=== PATIENT | male | born 1955 | race Caucasian/White ===

== ENCOUNTER 2016-12-01 17:17 | Inpatient (IN) | payer OTHER ==
[~2016-12-01] VITALS: Ht 172.7 cm; Wt 109.5 kg
[~2016-12-01 17:17] MED LIST: ACET300T2 PO; ALBUAER19 INH; ASPI-435 PO; ATOR10TA88 PO; CARV25TA2 PO; CHOL100027 PO; CLOP1TAB15 PO; COEN50CA9 PO; CYAN500T PO; FENO145T26 PO; GLIM1TAB2 PO; IMDSR30 PO; LSN5 PO; OMEGCAP2 PO; TRIA0.1C20 TOP
[2016-12-01] MEDS ORDERED: LSX40 PO (17:43)
[2016-12-01] MEDS ORDERED: FENO54TA PO (17:43)
[2016-12-01] MEDS ORDERED: CRG125 PO (17:43)
[2016-12-01] MEDS ORDERED: COEN1CAP28 PO (17:43)
[2016-12-01] MEDS ORDERED: LISI-729 PO (17:43)
[2016-12-01 17:45] LABS: BASO % 0.1 %; BASO ABS # 0.01 K/uL (0-0.2); COMPLETE YES; EOS % 1.9 %; HEMATOCRIT 46.5 % (42-52); IG% 0.8 %; LYMPH % 16.1 %; LYMPH ABS # 1.36 K/uL (1.2-3.4); MEAN CELL VOLUME 88.2 fL (80-100); MEAN CORPUSCULAR HEMOGLOBIN 31.3 pg (25-34); MEAN CORPUSCULAR HGB CONC 35.5 g/dl (32-36); MONO % 6.8 %; NEUT % 74.3 %; PLATELET COUNT 185 K/uL (130-400); RED BLOOD COUNT 5.27 M/uL (4.7-6.1); WHITE BLOOD COUNT 8.47 K/uL (4.8-10.8)
[2016-12-01] MEDS ORDERED: ACET-749 PO (17:53)
--- NOTE | 2016-12-01 17:57 | EMERGENCY ROOM VISIT NOTE ---
History Report prepared by Kim: Aliya Hernández Under the Supervision of: Dr. Francois Armstrong D.O. 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 The patient states he was seen by his PCP who refereed him to come to have further tests performed. The patient states that he has also been experiencing constipation and has noticed that his stool is harder than usual. He states he also has middle back pain. The patient states that eating worsens his symptoms. The patient denies any abdominal pain,chest pain, nausea, vomiting, urinary symptoms , or fevers. The patient states that he has baseline SOB due to asthma and states he uses a nebulizer at home. The patient states that his last heart catheterization in 2009 when his defibrillator was placed. 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 Review of Systems See HPI for pertinent positives & negatives. A total of 10 systems reviewed and were otherwise negative. Past Medical & Surgical Medical Problems: (1) CHF (congestive heart failure) (2) COPD (chronic obstructive pulmonary disease) (3) Diabetes (4) [place]' lung (5) Pneumonia (6) Presence of combination internal cardiac defibrillator (ICD) and pacemaker Family History Patient reports no known family medical history. Social History Smoking Status: Never Smoker Drug Use: none Marital Status: Housing Status: lives with significant other Occupation Status: employed Current/Historical Medications Scheduled Aspirin (Aspirin 81), 81 MG PO DAILY Atorvastatin (Lipitor), 10 MG PO DAILY Carvedilol (Carvedilol), 12.5 MG PO BID Cholecalciferol (Vitamin D 1000 Unit), 1,000 INTER.UNIT PO DAILY Coenzyme Q10 (Ubidecarenone) (Co Q10), 1 CAP PO DAILY Cyanocobalamin (Vitamin B-12), 500 MCG PO DAILY Fenofibrate (Tricor), 54 MG PO DAILY Furosemide (Furosemide), 20 MG PO BID Glimepiride (Glimepiride), 1 MG PO DAILY Lisinopril (Zestril), 5 MG PO DAILY [place]-3 Fatty Acids (Fish Oil), 1 CAP PO DAILY Scheduled PRN Acetaminophen/Codeine (Tylenol W/Codeine #3), 1 TAB PO Q6 PRN for Pain Albuterol Inhaler (Ventolin Inhaler), 2 PUFFS INH QID PRN for Wheezing Triamcinolone Acet 0.1% (Aristocort 0.1%), 1 APPLN TOP BID PRN for UNK Allergies Coded Allergies: Budesonide (Verified Allergy, Unknown, TACHYCARDIA, SOB, 03/01/15) Carbamazepine (Verified Allergy, Unknown, TACHYCARDIA, PANIC ATTACK, ) Cyclobenzaprine (Verified Allergy, Unknown, UNK, 03/01/15) Doxycycline (Verified Allergy, Unknown, ABD PAIN, 03/01/15) Fluticasone (Verified Allergy, Unknown, UNK, 03/01/15) Formoterol (Verified Allergy, Unknown, TACHYCARDIA, SOB, 03/01/15) Salmeterol (Verified Allergy, Unknown, ANAPHYLAXIS, 03/01/15) Sodium Propionate (Verified Allergy, Unknown, SHORTNESS OF BREATH, 03/01/15 ) Digoxin (Verified Adverse Reaction, Unknown, BACK AND STOMACH PAIN, ) Metformin (Verified Adverse Reaction, Unknown, MUSCLE ACHES IN BVACK AND KIDNEYS, 03/01/15) Physical Exam Vital Signs Date Time Temp Pulse Resp B/P Pulse Ox O2 Delivery O2 Flow Rate FiO2 12/01/16 23:02 93 12/01/16 23:00 93 18 134/84 12/01/16 20:59 98 18 129/83 95 Room Air 12/01/16 18:28 94 19 121/87 94 Room Air 12/01/16 17:59 92 12/01/16 17:50 92 17 137/89 94 Room Air 12/01/16 17:19 36.5 91 18 142/88 95 Room Air Physical Exam GENERAL: Patient is awake, alert, non anxious appearing and does not appear to be in any pain. EYES: The conjunctivae are clear. The pupils are round and reactive. EARS, NOSE, MOUTH AND THROAT: The nose is without any evidence of any deformity. Mucous membranes are moist tongue is midline NECK: The neck is nontender and supple. RESPIRATORY: Normal respiratory effort is noted there is no evidence of wheezing rhonchi or rales CARDIOVASCULAR: Regular rate and rhythm noted there no murmurs rubs or gallops normal S1 normal S2 GASTROINTESTINAL: The abdomen moderately distended but soft, no tenderness, guarding or rigidity. MUSCULOSKELETAL/EXTREMITIES: There is no evidence of gross deformity full range of motion is noted in the hips and shoulders SKIN: There is no obvious evidence of any rash. There are no petechiae, pallor or cyanosis noted. Trace pedal edema bilaterally noted. NEUROLOGIC: Patient is awake alert and oriented x3. Medical Decision & Procedures ER Provider Diagnostic Interpretation: X-ray results as stated below per interpretation by me and the radiologist. PA CHEST WITH ABDOMINAL SERIES CLINICAL HISTORY: Abdominal distention. FINDINGS: A PA chest radiograph is compared to study dated 03/03/2015. A 2-lead cardiac AICD partially obscures the left mid chest. The heart is enlarged and there is atherosclerotic calcification of the thoracic aorta. The pulmonary vasculature is noncongested. Chronic interstitial thickening is unchanged. There is no airspace consolidation or large pleural effusion. No pneumothorax is seen. The skeletal structures are osteopenic. There are healed left-sided rib fractures. Supine and erect abdominal radiographs are obtained. Correlation is made with renal ultrasound dated 03/03/2015. There is a nonobstructed abdominal bowel gas pattern. No evidence of intraperitoneal free air is seen. There are no abnormal abdominal calcifications. Small phleboliths are present in the pelvis. The hepatic silhouette appears enlarged. Mild lumbosacral spondylosis is observed. The bony pelvis appears intact. Advanced atherosclerotic calcification is noted in the femoral arteries. IMPRESSION: 1. Cardiomegaly and AICD. There is no radiographic evidence of congestive failure. 2. There is no airspace consolidation or pleural effusion. 3. Nonobstructed abdominal bowel gas pattern. Electronically signed by: Truong Palomino M.D. 12/01/2016 7:22 PM Dictated Date/Time: 12/01/2016 7:[address] results as stated below per my review and radiologist interpretation. CT SCAN OF THE ABDOMEN AND PELVIS WITHOUT IV CONTRAST CLINICAL HISTORY: Left upper quadrant abdominal pain. COMPARISON STUDY: Abdominal radiograph dated 12/01/2016. Renal ultrasound dated 03/03/2015. TECHNIQUE: CT scan of the abdomen and pelvis is performed from the lung bases to the proximal femora. Images are reviewed in the axial, sagittal, and coronal planes. IV contrast was not administered for this examination as per the referring clinician. Note that the examination was performed in significantly suboptimal fashion without oral and IV contrast. Automated dose control exposure was utilized. CT DOSE: 1002.43 mGy.cm FINDINGS: Lung bases: The heart is heart is mildly enlarged. Pacemaker leads are noted. There is no pericardial effusion. A calcified granuloma is identified at the right lung base. The lung bases are otherwise clear. There is a tiny hiatal hernia. Liver: The unenhanced liver is enlarged, measuring 19 cm in length. The liver demonstrates diffusely diminished attenuation consistent with severe hepatic steatosis. Fatty sparing is seen adjacent to the gallbladder fossa. There is no intrahepatic biliary ductal dilatation. Gallbladder: Unremarkable. Spleen: Normal in size and attenuation. There are small calcified splenic granulomas. Pancreas: Unremarkable. Adrenal glands: Unremarkable. Kidneys: The unenhanced kidneys demonstrate mild cortical atrophy and are without hydronephrosis. There are no renal calculi identified. There is a 3.6 cm lesion in the upper pole of the right kidney seen on axial image #157. This does not meet criteria for a simple cyst. A 1.7 cm partially exophytic cyst arises from the interpolar left kidney. Abdominal vasculature: The abdominal aorta is normal in course and caliber noting advanced atherosclerotic calcification. Bowel: The small bowel and colon are normal in course and caliber. A small duodenal diverticulum is noted. There is mild to moderate sigmoid diverticulosis without CT evidence of acute diverticulitis. There is mild colonic fecal retention. The appendix is well-visualized and normal. Peritoneum: There is no intraperitoneal free air or abdominal ascites. There is a small fat-containing local hernia. Lymphadenopathy: None. Pelvic viscera: The prostate gland is mildly heterogeneous and contains coarse calcifications. The bladder and seminal vesicles are normal as visualized. Skeletal structures: There is mild lumbosacral spondylosis. No lytic or blastic lesions are seen. IMPRESSION: 1. Significantly suboptimal examination without oral and IV contrast. 2. There are no acute infectious or inflammatory findings in the abdomen or pelvis. 3. There is a 3.6 cm lesion identified in the upper pole of the right kidney. This does not meet CT criteria for a simple cyst and although this could represent a complex cyst the appearance is highly concerning for a renal mass. Follow-up with a nonemergent renal mass protocol abdominal CT is recommended for further characterization. 4. Hepatomegaly and severe hepatic steatosis. 5. Cardiomegaly. 6. There is mild to moderate sigmoid diverticulosis without CT evidence of acute diverticulitis. Electronically signed by: Truong Palomino M.D. 12/01/2016 9:00 PM Dictated Date/Time: 12/01/2016 8:52 PM Laboratory Results 12/01/16 17:30 Red Blood Count 5.27, Mean Corpuscular Volume 88.2, Mean Corpuscular Hemoglobin 31.3, Mean Corpuscular Hemoglobin Concent 35.5, Mean Platelet Volume 10.0, Neutrophils (%) (Auto) 74.3, Lymphocytes (%) (Auto) 16.1, Monocytes (%) (Auto) 6.8, Eosinophils (%) (Auto) 1.9, Basophils (%) (Auto) 0.1, Neutrophils # (Auto) 6.29, Lymphocytes # (Auto) 1.36, Monocytes # (Auto) 0.58, Eosinophils # (Auto) 0.16, Basophils # (Auto) 0.01 12/01/16 17:30 Test 12/01/16 17:30 White Blood Count 8.47 K/uL (4.8-10.8) Red Blood Count 5.27 M/uL (4.7-6.1) Hemoglobin 16.5 g/dL (14.0-18.0) Hematocrit 46.5 % (42-52) Mean Corpuscular Volume 88.2 fL (80-100) Mean Corpuscular Hemoglobin 31.3 pg (25-34) Mean Corpuscular Hemoglobin Concent 35.5 g/dl (32-36) Platelet Count 185 K/uL (130-400) Mean Platelet Volume 10.0 fL (7.4-10.4) Neutrophils (%) (Auto) 74.3 % Lymphocytes (%) (Auto) 16.1 % Monocytes (%) (Auto) 6.8 % Eosinophils (%) (Auto) 1.9 % Basophils (%) (Auto) 0.1 % Neutrophils # (Auto) 6.29 K/uL (1.4-6.5) Lymphocytes # (Auto) 1.36 K/uL (1.2-3.4) Monocytes # (Auto) 0.58 K/uL (0.11-0.59) Eosinophils # (Auto) 0.16 K/uL (0-0.5) Basophils # (Auto) 0.01 K/uL (0-0.2) RDW Standard Deviation 43.0 fL (36.4-46.3) RDW Coefficient of Variation 13.2 % (11.5-14.5) Immature Granulocyte % (Auto) 0.8 % Immature Granulocyte # (Auto) 0.07 K/uL (0.00-0.02) Prothrombin Time 10.9 SECONDS (9.0-12.0) Prothromb Time International Ratio 1.0 (0.9-1.1) Activated Partial Thromboplast Time 23.6 SECONDS (21.0-31.0) Partial Thromboplastin Ratio 0.9 Anion Gap 11.0 mmol/L (3-11) Est Creatinine Clear Calc Drug Dose 56.7 ml/min Estimated GFR () 52.4 Estimated GFR (Non- 45.2 BUN/Creatinine Ratio 18.8 (10-20) Calcium Level 10.0 mg/dl (8.5-10.1) Magnesium Level 2.3 mg/dl (1.8-2.4) Total Bilirubin 0.7 mg/dl (0.2-1) Direct Bilirubin 0.1 mg/dl (0-0.2) Aspartate Amino Transf (AST/SGOT) 28 U/L (15-37) Alanine Aminotransferase (ALT/SGPT) 50 U/L (12-78) Alkaline Phosphatase 50 U/L (45-117) Total Creatine Kinase 194 U/L (39-308) Creatine Kinase MB 2.2 ng/ml (0.5-3.6) Creatine Kinase MB Ratio 1.1 (0-3.0) Troponin I 0.059 ng/ml (0-0.045) Total Protein 7.7 gm/dl (6.4-8.2) Albumin 4.1 gm/dl (3.4-5.0) Lipase 275 U/L (73-393) Thyroid Stimulating Hormone (TSH) 4.900 uIu/ml (0.300-4.500) Free Thyroxine 1.11 ng/dl (0.80-1.60) Laboratory results per my review. Medications Administered Medications (Trade) Dose Ordered Sig/Pearl Route Start Time Stop Time Status Last Admin Dose Admin Sodium Chloride (Nss 500ml) 500 ml @ 999 mls/hr Q31M STAT IV 12/01/16 20:25 12/01/16 20:55 DC 12/01/16 20:25 999 MLS/HR ECG Indication: other (abdominal bloating. ) Rate (beats per minute): 95 Rhythm: sinus rhythm Findings: 1st degree AV block, PVC (frequent), ST depression (Lateral and Inferior), other (Poor R wave progression) Comparison ECG Date: March 02, 2015 Change: no significant change ED Course 1727: The patient was evaluated in room C4. A complete history and physical examination were performed. 2017: I reevaluated the patient and he was resting comfortably. 2024: Ordered NSS 500 ml @ 999 mls/hr IV 2216:I discussed the case with Dr. [facility]. He agreed to evaluate the patient for further management and care. Medical Decision Differential diagnosis: Etiologies such as appendicitis, diverticulitis, PUD, biliary pathology, UTI, pancreatitis, obstruction, mesenteric ischemia, aortic pathology, infections, inflammatory bowel disease, renal colic, as well as others were entertained. Nursing notes reviewed. The patient is a 61-year-old male who presented to the emergency department for an evaluation of upper abdominal pain and left-sided lower chest pain. The patient also has been experiencing pain in his upper extremities. He was seen by his primary care physician and sent to the emergency department for possible anginal equivalent. The patient doesn't a history of dilated cardiomyopathy. His troponin was mildly elevated which he has had on previous visits. I discussed the patient's laboratory and radiographic studies with him. He was treated with IV fluids in the emergency department. Because of the patient's history and abnormal troponin I discussed his case with the on-call [facility] hospitalist group. They've agreed to evaluate the patient in the emergency department for further management and disposition. Consults Time Called: [id number] Consulting Physician: Dr. Lindsay GOLDMAN Hospitalist Returned Call: [id number] I discussed the case with Dr. Lindsay [facility]. He agreed to evaluate the patient for further management and care. Impression Primary Impression: Left sided chest pain Additional Impressions: Right kidney mass Hypotension Scribe Attestation The scribe's documentation has been prepared under my direction and personally reviewed by me in its entirety. I confirm that the note above accurately reflects all work, treatment, procedures, and medical decision making performed by me. Departure Information Dispostion Being Evaluated By Hospitalist Referrals Karen Pablo M.D. (PCP) Problem Qualifiers Additional Impressions:
[2016-12-01 17:59] LABS: PARTIAL THROMBOPLASTIN RATIO 0.9; PROTHROMBIN TIME (PATIENT) 10.9 SECONDS (9.0-12.0)
[2016-12-01 18:07] LABS: BUN/CREATININE RATIO 18.8 (10-20); CREATININE 1.6 mg/dl (0.60-1.40); MAGNESIUM 2.3 mg/dl (1.8-2.4); POTASSIUM 4.3 mmol/L (3.5-5.1)
[2016-12-01 18:18] LABS: CKMB/CK RATIO 1.1 (0-3.0); THYROID STIMULATING HORMONE 4.9 uIu/ml (0.300-4.500)
--- NOTE | 2016-12-01 19:24 | DIAGNOSTIC IMAGING REPORT ---
PA CHEST WITH ABDOMINAL SERIES CLINICAL HISTORY: Abdominal distention. FINDINGS: A PA chest radiograph is compared to study dated 03/03/2015. A 2-lead cardiac AICD partially obscures the left mid chest. The heart is enlarged and there is atherosclerotic calcification of the thoracic aorta. The pulmonary vasculature is noncongested. Chronic interstitial thickening is unchanged. There is no airspace consolidation or large pleural effusion. No pneumothorax is seen. The skeletal structures are osteopenic. There are healed left-sided rib fractures. Supine and erect abdominal radiographs are obtained. Correlation is made with renal ultrasound dated 03/03/2015. There is a nonobstructed abdominal bowel gas pattern. No evidence of intraperitoneal free air is seen. There are no abnormal abdominal calcifications. Small phleboliths are present in the pelvis. The hepatic silhouette appears enlarged. Mild lumbosacral spondylosis is observed. The bony pelvis appears intact. Advanced atherosclerotic calcification is noted in the femoral arteries. IMPRESSION: 1. Cardiomegaly and AICD. There is no radiographic evidence of congestive failure. 2. There is no airspace consolidation or pleural effusion. 3. Nonobstructed abdominal bowel gas pattern. Electronically signed by: Truong Palomino M.D. 12/01/2016 7:22 PM Dictated Date/Time: 12/01/2016 7:20 PM
[2016-12-01] MEDS ORDERED: SODIUM CHLORIDE 0.9% 500ML 500 ML IV STA (20:25)
--- NOTE | 2016-12-01 21:02 | DIAGNOSTIC IMAGING REPORT ---
CT SCAN OF THE ABDOMEN AND PELVIS WITHOUT IV CONTRAST CLINICAL HISTORY: Left upper quadrant abdominal pain. COMPARISON STUDY: Abdominal radiograph dated 12/01/2016. Renal ultrasound dated 03/03/2015. TECHNIQUE: CT scan of the abdomen and pelvis is performed from the lung bases to the proximal femora. Images are reviewed in the axial, sagittal, and coronal planes. IV contrast was not administered for this examination as per the referring clinician. Note that the examination was performed in significantly suboptimal fashion without oral and IV contrast. Automated dose control exposure was utilized. CT DOSE: 1002.43 mGy.cm FINDINGS: Lung bases: The heart is heart is mildly enlarged. Pacemaker leads are noted. There is no pericardial effusion. A calcified granuloma is identified at the right lung base. The lung bases are otherwise clear. There is a tiny hiatal hernia. Liver: The unenhanced liver is enlarged, measuring 19 cm in length. The liver demonstrates diffusely diminished attenuation consistent with severe hepatic steatosis. Fatty sparing is seen adjacent to the gallbladder fossa. There is no intrahepatic biliary ductal dilatation. Gallbladder: Unremarkable. Spleen: Normal in size and attenuation. There are small calcified splenic granulomas. Pancreas: Unremarkable. Adrenal glands: Unremarkable. Kidneys: The unenhanced kidneys demonstrate mild cortical atrophy and are without hydronephrosis. There are no renal calculi identified. There is a 3.6 cm lesion in the upper pole of the right kidney seen on axial image #157. This does not meet criteria for a simple cyst. A 1.7 cm partially exophytic cyst arises from the interpolar left kidney. Abdominal vasculature: The abdominal aorta is normal in course and caliber noting advanced atherosclerotic calcification. Bowel: The small bowel and colon are normal in course and caliber. A small duodenal diverticulum is noted. There is mild to moderate sigmoid diverticulosis without CT evidence of acute diverticulitis. There is mild colonic fecal retention. The appendix is well-visualized and normal. Peritoneum: There is no intraperitoneal free air or abdominal ascites. There is a small fat-containing local hernia. Lymphadenopathy: None. Pelvic viscera: The prostate gland is mildly heterogeneous and contains coarse calcifications. The bladder and seminal vesicles are normal as visualized. Skeletal structures: There is mild lumbosacral spondylosis. No lytic or blastic lesions are seen. IMPRESSION: 1. Significantly suboptimal examination without oral and IV contrast. 2. There are no acute infectious or inflammatory findings in the abdomen or pelvis. 3. There is a 3.6 cm lesion identified in the upper pole of the right kidney. This does not meet CT criteria for a simple cyst and although this could represent a complex cyst the appearance is highly concerning for a renal mass. Follow-up with a nonemergent renal mass protocol abdominal CT is recommended for further characterization. 4. Hepatomegaly and severe hepatic steatosis. 5. Cardiomegaly. 6. There is mild to moderate sigmoid diverticulosis without CT evidence of acute diverticulitis. Electronically signed by: Truong Palomino M.D. 12/01/2016 9:00 PM Dictated Date/Time: 12/01/2016 8:52 PM
[2016-12-02] VITALS (7 sets, daily range): BP systolic 106–128; BP diastolic 69–83; PULSE 87–100; TEMP 36.6–37; O2SAT 93–94; Ht 172.7 cm; Wt 109.5 kg
[2016-12-02] MEDS ORDERED: TRIAMCINOLONE ACET 0.1% CR 15 GM TUBE EXT PRN (01:30)
[2016-12-02] MEDS ORDERED: ACETAMINOPHEN 325 MG TAB PO PRN ×2 (01:30→01:45)
[2016-12-02] MEDS ORDERED: ACETAMINOPHEN/CODEINE 300/30MG TAB PO PRN (01:30)
[2016-12-02] MEDS ORDERED: ALBUTEROL HFA 8 GM INHALER INH PRN (01:30)
[2016-12-02] MEDS ORDERED: NITROGLYCERIN 0.4 MG SL PER TAB CHARGE SL PRN (01:30)
[2016-12-02] MEDS ORDERED: ZOLPIDEM TARTRATE 5 MG TAB PO PRN (01:30)
[2016-12-02] MEDS ORDERED: MoRPHine SULFATE 4 MG/ML 1 ML CARP\\VIAL IV PRN (01:45)
[2016-12-02] MEDS ORDERED: MoRPHine SULFATE 2 MG/ML CARP IV PRN (01:45)
[2016-12-02] MEDS ORDERED: ONDANSETRON INJ 2 MG/ML 2 ML VIAL IV PRN (01:45)
[2016-12-02] MEDS ORDERED: TRAMADOL HCL 50 MG TAB PO PRN ×2 (01:45)
[2016-12-02 03:33] LABS: CKMB/CK RATIO 1.1 (0-3.0)
--- NOTE | 2016-12-02 06:12 | History and Physical ---
History & Physical Date & Time of Service: Dec 02, 2016 at 06:03 Chief Complaint: Elevated Troponin I Level Primary Care Physician: Karen Pablo M.D. History of Present Illness Source: patient, spouse The patient is a 61-year-old male who presents to emergency room with complaint of worsening abdominal epigastric bloating that began a few days prior to arrival. He is also had more difficulty moving his bowels with the stool being harder than usual. He has not had any abdominal pain, nausea, vomiting, blood in urine or stool. He has baseline shortness of breath due to asthma, which has not changed during this interval. He had a heart catheterization in 2009 when his AICD was placed. Past Medical/Surgical History Medical Problems: (1) CHF (congestive heart failure) Status: Chronic (2) COPD (chronic obstructive pulmonary disease) Status: Chronic (3) Diabetes Status: Chronic (4) [place]' lung Status: Resolved (5) Pneumonia Status: Resolved (6) Presence of combination internal cardiac defibrillator (ICD) and pacemaker Status: Chronic Family History Patient reports no known family medical history. Social History Smoking Status: Never Smoker Smokeless Tobacco Use: No Alcohol Use: none Drug Use: none Marital Status: Housing status: lives with family Occupational Status: employed Multi-Drug Resistant Organisms History of MDRO: No Allergies Coded Allergies: Budesonide (Verified Allergy, Unknown, TACHYCARDIA, SOB, 03/01/15) Carbamazepine (Verified Allergy, Unknown, TACHYCARDIA, PANIC ATTACK, ) Cyclobenzaprine (Verified Allergy, Unknown, UNK, 03/01/15) Doxycycline (Verified Allergy, Unknown, ABD PAIN, 03/01/15) Fluticasone (Verified Allergy, Unknown, UNK, 03/01/15) Formoterol (Verified Allergy, Unknown, TACHYCARDIA, SOB, 03/01/15) Salmeterol (Verified Allergy, Unknown, ANAPHYLAXIS, 03/01/15) Sodium Propionate (Verified Allergy, Unknown, SHORTNESS OF BREATH, 03/01/15 ) Digoxin (Verified Adverse Reaction, Unknown, BACK AND STOMACH PAIN, ) Metformin (Verified Adverse Reaction, Unknown, MUSCLE ACHES IN BVACK AND KIDNEYS, 03/01/15) Home Medications Scheduled Aspirin (Aspirin 81), 81 MG PO DAILY Atorvastatin (Lipitor), 10 MG PO DAILY Carvedilol (Carvedilol), 12.5 MG PO BID Cholecalciferol (Vitamin D 1000 Unit), 1,000 INTER.UNIT PO DAILY Coenzyme Q10 (Ubidecarenone) (Co Q10), 1 CAP PO DAILY Cyanocobalamin (Vitamin B-12), 500 MCG PO DAILY Fenofibrate (Tricor), 54 MG PO DAILY Furosemide (Furosemide), 20 MG PO BID Glimepiride (Glimepiride), 1 MG PO DAILY Lisinopril (Zestril), 5 MG PO DAILY Leo-3 Fatty Acids (Fish Oil), 1 CAP PO DAILY Scheduled PRN Acetaminophen/Codeine (Tylenol W/Codeine #3), 1 TAB PO Q6 PRN for Pain Albuterol Inhaler (Ventolin Inhaler), 2 PUFFS INH QID PRN for Wheezing Triamcinolone Acet 0.1% (Aristocort 0.1%), 1 APPLN TOP BID PRN for UNK Review of Systems The patient denies chest pain, palpitations, shortness of breath, cough, lower extremity swelling, vision change, hearing change, sore throat, fevers, chills, sweats, weight change, fatigue, nausea, abdominal pain, blood in urine or stool , dysuria, urinary frequency or urgency, lightheadedness, dizziness, headache, memory loss, rash, abnormal bruising or bleeding, imbalance, focal or generalized weakness, numbness or tingling in arms or legs, arthralgias or myalgias, night sweats, or allergy symptoms. The review of systems is otherwise negative other than for that already noted above, and at least 10 systems have been reviewed. Physical Exam Vital Signs Date Time Temp Pulse Resp B/P Pulse Ox O2 Delivery O2 Flow Rate FiO2 12/02/16 04:15 36.8 100 18 128/83 94 Room Air 12/02/16 04:00 Room Air 12/02/16 01:53 37.0 95 17 124/75 Room Air 12/02/16 01:29 101 20 154/92 95 Room Air 12/01/16 23:59 94 20 114/84 12/01/16 23:02 93 12/01/16 23:00 93 18 134/84 12/01/16 20:59 98 18 129/83 95 Room Air 12/01/16 18:28 94 19 121/87 94 Room Air 12/01/16 17:59 92 12/01/16 17:50 92 17 137/89 94 Room Air 12/01/16 17:19 36.5 91 18 142/88 95 Room Air The patient is awake, well-developed and adequately nourished, alert and oriented 3, normocephalic and atraumatic, lying in bed and in no acute distress. HEENT--PERRL, EOMI, mucous membranes moist, and oropharynx normal. Neck--supple, no JVD or bruits, thyroid normal, trachea midline, no adenopathy. Heart--normal S1 and S2, no extra beats, no murmurs, rubs or gallops. Lungs--clear bilaterally with good air movement, no respiratory distress, no accessory muscle use. Abdomen--normal bowel sounds and soft, nontender and nondistended, mildly tympanitic, moderately obese, no hernias or masses, no organomegaly. Extremities--no cyanosis, clubbing or edema. There are good distal pulses b/l. Dermatologic--normal skin turgor, normal color, warm and dry, no abnormal lymph nodes, no rash. Neurologic--cranial nerves II through XII grossly intact, motor and sensory examination normal. Rheumatologic--normal range of motion, nontender, muscles and joints. Psychiatric--normal affect. Diagnostics Laboratory Results Results Past 24 Hours Test 12/01/16 17:30 12/02/16 02:25 Range/Units White Blood Count 8.47 4.8-10.8 K/uL Red Blood Count 5.27 4.7-6.1 M/uL Hemoglobin 16.5 14.0-18.0 g/dL Hematocrit 46.5 42-52 % Mean Corpuscular Volume 88.2 80-100 fL Mean Corpuscular Hemoglobin 31.3 25-34 pg Mean Corpuscular Hemoglobin Concent 35.5 32-36 g/dl Platelet Count 185 130-400 K/uL Mean Platelet Volume 10.0 7.4-10.4 fL Neutrophils (%) (Auto) 74.3 % Lymphocytes (%) (Auto) 16.1 % Monocytes (%) (Auto) 6.8 % Eosinophils (%) (Auto) 1.9 % Basophils (%) (Auto) 0.1 % Neutrophils # (Auto) 6.29 1.4-6.5 K/uL Lymphocytes # (Auto) 1.36 1.2-3.4 K/uL Monocytes # (Auto) 0.58 0.11-0.59 K/uL Eosinophils # (Auto) 0.16 0-0.5 K/uL Basophils # (Auto) 0.01 0-0.2 K/uL RDW Standard Deviation 43.0 36.4-46.3 fL RDW Coefficient of Variation 13.2 11.5-14.5 % Immature Granulocyte % (Auto) 0.8 % Immature Granulocyte # (Auto) 0.07 0.00-0.02 K/uL Prothrombin Time 10.9 9.0-12.0 SECONDS Prothromb Time International Ratio 1.0 0.9-1.1 Activated Partial Thromboplast Time 23.6 21.0-31.0 SECONDS Partial Thromboplastin Ratio 0.9 Sodium Level 138 136-145 mmol/L Potassium Level 4.3 3.5-5.1 mmol/L Chloride Level 102 98-107 mmol/L Carbon Dioxide Level 25 21-32 mmol/L Anion Gap 11.0 3-11 mmol/L Blood Urea Nitrogen 30 7-18 mg/dl Creatinine 1.60 0.60-1.40 mg/dl Est Creatinine Clear Calc Drug Dose 56.7 ml/min Estimated GFR () 52.4 Estimated GFR (Non- 45.2 BUN/Creatinine Ratio 18.8 10-20 Random Glucose 119 70-99 mg/dl Calcium Level 10.0 8.5-10.1 mg/dl Magnesium Level 2.3 1.8-2.4 mg/dl Total Bilirubin 0.7 0.2-1 mg/dl Direct Bilirubin 0.1 0-0.2 mg/dl Aspartate Amino Transf (AST/SGOT) 28 15-37 U/L Alanine Aminotransferase (ALT/SGPT) 50 12-78 U/L Alkaline Phosphatase 50 45-117 U/L Total Creatine Kinase 194 160 39-308 U/L Creatine Kinase MB 2.2 1.7 0.5-3.6 ng/ml Creatine Kinase MB Ratio 1.1 1.1 0-3.0 Troponin I 0.059 0.049 0-0.045 ng/ml Total Protein 7.7 6.4-8.2 gm/dl Albumin 4.1 3.4-5.0 gm/dl Lipase 275 73-393 U/L Thyroid Stimulating Hormone (TSH) 4.900 0.300-4.500 uIu/ml Free Thyroxine 1.11 0.80-1.60 ng/dl Diagnostic Radiology Patient Name: TAMIE VAUGHAN Unit Number: [id number] Dictated: 12/01/161919 Transcribed: 12/01/161919 EV Printed Date/Time: [~ rep prt dt]/[~ rep prt tm] [~ rep ct labl] - [~ rep ct ivnm] [facility] [place] [address] Dictated: 12/01/161919 Transcribed: 12/01/161919 EV Printed Date/Time: [~ rep prt dt]/[~ rep prt tm] [~ rep ct labl] - [~ rep ct ivnm] PA CHEST WITH ABDOMINAL SERIES CLINICAL HISTORY: Abdominal distention. FINDINGS: A PA chest radiograph is compared to study dated 03/03/2015. A 2-lead cardiac AICD partially obscures the left mid chest. The heart is enlarged and there is atherosclerotic calcification of the thoracic aorta. The pulmonary vasculature is noncongested. Chronic interstitial thickening is unchanged. There is no airspace consolidation or large pleural effusion. No pneumothorax is seen. The skeletal structures are osteopenic. There are healed left-sided rib fractures. Supine and erect abdominal radiographs are obtained. Correlation is made with renal ultrasound dated 03/03/2015. There is a nonobstructed abdominal bowel gas pattern. No evidence of intraperitoneal free air is seen. There are no abnormal abdominal calcifications. Small phleboliths are present in the pelvis. The hepatic silhouette appears enlarged. Mild lumbosacral spondylosis is observed. The bony pelvis appears intact. Advanced atherosclerotic calcification is noted in the femoral arteries. IMPRESSION: 1. Cardiomegaly and AICD. There is no radiographic evidence of congestive failure. 2. There is no airspace consolidation or pleural effusion. 3. Nonobstructed abdominal bowel gas pattern. Electronically signed by: Truong Palomino M.D. 12/01/2016 7:22 PM Dictated Date/Time: 12/01/2016 7:20 PM The status of this report is Signed. Draft = Not yet reviewed or approved by Radiologist. Signed = Reviewed and approved by Radiologist. <AttendingPhy></AttendingPhy> <FamilyPhy>Karen Pablo M.D.</FamilyPhy> < PrimaryPhy>Karen Pablo M.D.</PrimaryPhy> <UnitNumber>[id number]</UnitNumber> < VisitNumber>[id number]</VisitNumber> <PatientName>TAMIE VAUGHAN</PatientName > <DateOfBirth>1955</DateOfBirth> <Location>[facility]</Location> <ServiceDate> 12/01/16</ServiceDate> <MNE>ESINDI</MNE> <OrderingPhy>Francois Armstrong D.O.</ OrderingPhy> <OrderingPhyMNE>f rep ord dr ross</OrderingPhyMNE> <DictatingPhyMNE> f rep dict dr ross</DictatingPhyMNE> <CCListMNE>f rep ct mne</CCListMNE> < AdmittingPhyMNE>f pt admit dr ross</AdmittingPhyMNE> <AttendingPhyMNE>f pt attend dr ross</AttendingPhyMNE> <ConsultingPhyMNE>f pt consult dr ross</ConsultingPhyMNE> <FamilyPhyMNE>f pt fam dr ross</FamilyPhyMNE> <OtherPhyMNE>f pt other dr ross</OtherPhyMNE> < PrimaryPhyMNE>f pt prim care dr ross</PrimaryPhyMNE> <ReferringPhyMNE>f pt referring dr ross</ReferringPhyMNE> Patient Name: TAMIE VAUGHAN Unit Number: [id number] Dictated: 12/01/162051 Transcribed: 12/01/162051 EV Printed Date/Time: [~ rep prt dt]/[~ rep prt tm] [~ rep ct labl] - [~ rep ct ivnm] [facility] [place] [place] [address] Dictated: 12/01/162051 Transcribed: 12/01/162051 EV Printed Date/Time: [~ rep prt dt]/[~ rep prt tm] [~ rep ct labl] - [~ rep ct ivnm] [~ rep ct add3]] CT SCAN OF THE ABDOMEN AND PELVIS WITHOUT IV CONTRAST CLINICAL HISTORY: Left upper quadrant abdominal pain. COMPARISON STUDY: Abdominal radiograph dated 12/01/2016. Renal ultrasound dated 03/03/2015. TECHNIQUE: CT scan of the abdomen and pelvis is performed from the lung bases to the proximal femora. Images are reviewed in the axial, sagittal, and coronal planes. IV contrast was not administered for this examination as per the referring clinician. Note that the examination was performed in significantly suboptimal fashion without oral and IV contrast. Automated dose control exposure was utilized. CT DOSE: 1002.43 mGy.cm FINDINGS: Lung bases: The heart is heart is mildly enlarged. Pacemaker leads are noted. There is no pericardial effusion. A calcified granuloma is identified at the right lung base. The lung bases are otherwise clear. There is a tiny hiatal hernia. Liver: The unenhanced liver is enlarged, measuring 19 cm in length. The liver demonstrates diffusely diminished attenuation consistent with severe hepatic steatosis. Fatty sparing is seen adjacent to the gallbladder fossa. There is no intrahepatic biliary ductal dilatation. Gallbladder: Unremarkable. Spleen: Normal in size and attenuation. There are small calcified splenic granulomas. Pancreas: Unremarkable. Adrenal glands: Unremarkable. Kidneys: The unenhanced kidneys demonstrate mild cortical atrophy and are without hydronephrosis. There are no renal calculi identified. There is a 3.6 cm lesion in the upper pole of the right kidney seen on axial image #157. This does not meet criteria for a simple cyst. A 1.7 cm partially exophytic cyst arises from the interpolar left kidney. Abdominal vasculature: The abdominal aorta is normal in course and caliber noting advanced atherosclerotic calcification. Bowel: The small bowel and colon are normal in course and caliber. A small duodenal diverticulum is noted. There is mild to moderate sigmoid diverticulosis without CT evidence of acute diverticulitis. There is mild colonic fecal retention. The appendix is well-visualized and normal. Peritoneum: There is no intraperitoneal free air or abdominal ascites. There is a small fat-containing local hernia. Lymphadenopathy: None. Pelvic viscera: The prostate gland is mildly heterogeneous and contains coarse calcifications. The bladder and seminal vesicles are normal as visualized. Skeletal structures: There is mild lumbosacral spondylosis. No lytic or blastic lesions are seen. IMPRESSION: 1. Significantly suboptimal examination without oral and IV contrast. 2. There are no acute infectious or inflammatory findings in the abdomen or pelvis. 3. There is a 3.6 cm lesion identified in the upper pole of the right kidney. This does not meet CT criteria for a simple cyst and although this could represent a complex cyst the appearance is highly concerning for a renal mass. Follow-up with a nonemergent renal mass protocol abdominal CT is recommended for further characterization. 4. Hepatomegaly and severe hepatic steatosis. 5. Cardiomegaly. 6. There is mild to moderate sigmoid diverticulosis without CT evidence of acute diverticulitis. Electronically signed by: Truong Palomino M.D. 12/01/2016 9:00 PM Dictated Date/Time: 12/01/2016 8:52 PM The status of this report is Signed. Draft = Not yet reviewed or approved by Radiologist. Signed = Reviewed and approved by Radiologist. <AttendingPhy></AttendingPhy> <FamilyPhy>Karen Pablo M.D.</FamilyPhy> < PrimaryPhy>Karen Pablo M.D.</PrimaryPhy> <UnitNumber>[id number]</UnitNumber> < VisitNumber>[id number]</VisitNumber> <PatientName>TAMIE VAUGHAN Jayshree</PatientName > <DateOfBirth>1955</DateOfBirth> <Location>[facility]</Location> <ServiceDate> 12/01/16</ServiceDate> <MNE>ESINDI</MNE> <OrderingPhy>Francois Armstrong D.O.</ OrderingPhy> <OrderingPhyMNE>f rep ord dr ross</OrderingPhyMNE> <DictatingPhyMNE> f rep dict dr ross</DictatingPhyMNE> <CCListMNE>f rep ct vandana</CCListMNE> < AdmittingPhyMNE>f pt admit dr ross</AdmittingPhyMNE> <AttendingPhyMNE>f pt attend dr ross</AttendingPhyMNE> <ConsultingPhyMNE>f pt consult dr ross</ConsultingPhyMNE> <FamilyPhyMNE>f pt fam dr ross</FamilyPhyMNE> <OtherPhyMNE>f pt other dr ross</OtherPhyMNE> < PrimaryPhyMNE>f pt prim care dr ross</PrimaryPhyMNE> <ReferringPhyMNE>f pt referring dr ross</ReferringPhyMNE> EKG EKG shows normal sinus rhythm with first-degree heart block, incomplete left bundle branch block, nonspecific ST-T changes in lateral leads, and PVCs Impression Assessment and Plan Elevated troponin, with nonspecific ST-T changes, status post AICD--the patient will be admitted to the telemetry unit, for serial cardiac enzymes, cardiac rhythm monitoring, and a 2-D echocardiogram with Dopplers. We'll consult his telehealth director Dr. Jose. We'll continue aspirin 81 mg by mouth daily, carvedilol 12.5 mg by mouth twice a day, furosemide 20 mg by mouth twice a day, lisinopril 5 mg by mouth daily. Hypercholesterolemia--continue atorvastatin 10 mg by mouth daily and fenofibrate 54 mg by mouth daily. Diabetes mellitus--continue omeprazole 1 mg by mouth daily, and place patient on Accu-Cheks before meals and at bedtime with NovoLog coverage. Vitamin B12 deficiency--continue supplement 500 g by mouth daily. Level of Care Telemetry Advanced Directives Existing Advance Directive: No Existing Living Will: Yes Existing Power of Budget Coordinator: No Resuscitation Status FULL RESUSCITATION VTE Prophylaxis VTE Risk Assessment Done? Y/N: Yes Risk Level: Moderate Given or contraindicated: SCD's
[2016-12-02] MEDS ORDERED: CHOLECALCIFEROL 1000 INTER.UNIT TAB PO SCH (09:00)
[2016-12-02] MEDS ORDERED: CYANOCOBALAMIN 500 MCG TAB (VIT B-12) PO SCH (09:00)
[2016-12-02] MEDS ORDERED: GLIMEPIRIDE 2 MG TAB PO SCH (09:00)
[2016-12-02] MEDS ORDERED: FUROSEMIDE 20 MG TAB PO SCH (09:00)
[2016-12-02] MEDS ORDERED: ASPIRIN 81 MG ECTAB PO SCH (09:00)
[2016-12-02] MEDS ORDERED: ATORVASTATIN 10 MG TAB PO SCH (09:00)
[2016-12-02] MEDS ORDERED: CARVEDILOL 12.5 MG TAB PO SCH (09:00)
[2016-12-02] MEDS ORDERED: FENOFIBRATE 48 MG TAB PO SCH (09:00)
[2016-12-02] MEDS ORDERED: OMEGA-3 (PURIFIED FISH OIL) 1 GM CAP PO SCH (09:00)
[2016-12-02] MEDS ORDERED: LISINOPRIL 5 MG TAB PO SCH (09:00)
--- NOTE | 2016-12-02 09:37 | ECHOCARDIOGRAM REPORT ---
*NOTICE TO RECEIVING [employer] This information is strictly Confidential and protected under [place] law. [place] law prohibits you from making any further disclosure of this information unless further disclosure is expressly permitted by the written consent of the person to whom it pertains or is authorized by law. A general authorization for the release of medical or other information is not sufficient for this purpose. Hospital accepts no responsibility if the information is made available to any other person, INCLUDING THE PATIENT. Interpretation Summary * Name: TAMIE VAUGHAN Study Date: 12/02/2016 06:51 AM BP: 128/83 mmHg * Patient Location: C.2T\S\S239\S\1 HR: 100 * : 1955 (M/d/yyyy) Gender: Male Height: 68 in * Age: 61 yrs Ethnicity: [place] Weight: 241 lb * Ordering Physician: Catrachito Montoya * Referring Physician: Karen Pablo * Performed By: Jose Dominguez RDCS * * Reason For Study: Elevated troponin * BSA: 2.2 m2 * -- Conclusions -- * Markedly dilated LV with severe global hypokinesis. * LVEF by Taylor's 25% * LVEDV is 350 cc. * No LV thrombus * Stroke Volume by TVI is 30 cc * The right ventricle is normal in size and function. * AoV not well seen but no evidence of significant * Grade I diastolic dysfunction, (abnormal relaxation pattern). Procedure Details * A complete two-dimensional transthoracic echocardiogram was performed (2D, M-mode, Doppler and color flow Doppler). * The study was technically difficult. * The study was technically limited. * The study was technically difficult, but visualization was adequate with the administration of Definity ultrasound contrast. * There were technical limitations due to patient'sPoor acoustic windows secondary to severe lung disease. * A contrast injection of Definity was performed to improve assessment of LV function. * Contrast was injected into an intravenous site in the left arm. * One vial of Definity ultrasound contrast was diluted in normal saline to a total volume of 10 ml. A total of '5' ml of solution was administered during imaging. * Lot # [id number] of Definity utilized for procedure. * Expiration date . * The attending nurse who injected the contrast agent was Alfredito Leo RN. Left Ventricle * Markedly dilated LV with severe global hypokinesis. LVEF by Taylor's 25% LVEDV is 350 cc. No LV thrombus Stroke Volume by TVI is 30 cc Right Ventricle * The right ventricle is normal in size and function. Atria * The left atrium is moderately dilated. * Right atrial size is normal. Mitral Valve * The mitral valve is grossly normal. * There is trace mitral regurgitation. Tricuspid Valve * The tricuspid valve is not well visualized, but is grossly normal. * There is trace tricuspid regurgitation. Aortic Valve * AoV not well seen but no evidence of significant Pulmonic Valve * The pulmonic valve is not well seen, but is grossly normal. Great Vessels * The aortic root is normal size. Pericardium/Pleural * There is no pericardial effusion. Left Ventricular Diastolic Function * Grade I diastolic dysfunction, (abnormal relaxation pattern). MMode 2D Measurements and Calculations IVSd 1.7 cm IVSs 1.8 cm LVIDd 7.5 cm LVIDs 6.4 cm LVPWd 1.7 cm LVPWs 1.9 cm IVS/LVPW 1.0 FS 14.9 % EDV(Teich) 295.5 ml ESV(Teich) 205.4 ml EF(Teich) 30.5 % EDV(cubed) 416.5 ml ESV(cubed) 257.0 ml EF(cubed) 38.3 % % IVS thick 9.7 % % LVPW thick 13.5 % LV mass(C)d 702.8 grams LV mass(C)dI 317.6 grams/m\S\2 LV mass(C)s 638.5 grams LV mass(C)sI 288.6 grams/m\S\2 SV(Teich) 90.0 ml SI(Teich) 40.7 ml/m\S\2 SV(cubed) 159.5 ml SI(cubed) 72.1 ml/m\S\2 EPSS 1.5 cm Ao root diam 3.6 cm Ao root area 10.3 cm\S\2 ACS 1.6 cm LA dimension 4.7 cm asc Aorta Diam 3.4 cm LA/Ao 1.3 LVOT diam 2.4 cm LVOT area 4.4 cm\S\2 LVAd ap4 71.2 cm\S\2 LVLd ap4 11.6 cm EDV(MOD-sp4) 349.0 ml LVAs ap4 56.8 cm\S\2 LVLs ap4 10.4 cm ESV(MOD-sp4) 251.0 ml EF(MOD-sp4) 28.1 % LVAd ap2 56.6 cm\S\2 LVLd ap2 10.4 cm EDV(MOD-sp2) 248.0 ml LVAs ap2 46.5 cm\S\2 LVLs ap2 9.7 cm ESV(MOD-sp2) 178.0 ml EF(MOD-sp2) 28.2 % SV(MOD-sp4) 98.0 ml SI(MOD-sp4) 44.3 ml/m\S\2 SV(MOD-sp2) 70.0 ml SI(MOD-sp2) 31.6 ml/m\S\2 Doppler Measurements and Calculations MV E max susanne 75.4 cm/sec MV A max susanne 120.7 cm/sec MV E/A 0.63 MV dec time 0.30 sec Ao V2 max 132.5 cm/sec Ao max PG 7.0 mmHg Ao max PG (full) 4.3 mmHg AUSTYN(V,A) 2.7 cm\S\2 AUSTYN(V,D) 2.7 cm\S\2 LV V1 max PG 2.7 mmHg LV V1 mean PG 1.3 mmHg LV V1 max 82.2 cm/sec LV V1 mean 53.7 cm/sec LV V1 VTI 11.3 cm SV(LVOT) 49.9 ml SI(LVOT) 22.5 ml/m\S\2 PA V2 max 91.1 cm/sec PA max PG 3.3 mmHg
[2016-12-02 10:40] LABS: CALCIUM 9.2 mg/dl (8.5-10.1); CKMB/CK RATIO 0.7 (0-3.0); CREATININE 1.6 mg/dl (0.60-1.40); MAGNESIUM 2.1 mg/dl (1.8-2.4); POTASSIUM 4.3 mmol/L (3.5-5.1)
--- NOTE | 2016-12-02 11:56 | Discharge Instructions ---
Discharge Instructions Admission Reason for Admission: Elevated Troponin I Level Discharge Discharge Diagnosis / Problem: elevated troponin sec to chronic systolic CHF Discharge Goals Goal(s): Increase independence, Improve disease control, Diagnostic testing, Therapeutic intervention Activity Recommendations Activity Limitations: resume your previous activity . Instructions / Follow-Up Instructions / Follow-Up follow up cards and PCP in 2 weeks Current Hospital Diet Patient's current hospital diet: AHA Diet (Heart Healthy) Discharge Diet Recommended Diet: AHA Diet (Heart Healthy) Pending Studies Studies pending at discharge: no Laboratory Results Last 24 Hours Test 12/01/16 17:30 12/02/16 02:25 12/02/16 09:28 White Blood Count 8.47 K/uL Red Blood Count 5.27 M/uL Hemoglobin 16.5 g/dL Hematocrit 46.5 % Mean Corpuscular Volume 88.2 fL Mean Corpuscular Hemoglobin 31.3 pg Mean Corpuscular Hemoglobin Concent 35.5 g/dl Platelet Count 185 K/uL Mean Platelet Volume 10.0 fL Neutrophils (%) (Auto) 74.3 % Lymphocytes (%) (Auto) 16.1 % Monocytes (%) (Auto) 6.8 % Eosinophils (%) (Auto) 1.9 % Basophils (%) (Auto) 0.1 % Neutrophils # (Auto) 6.29 K/uL Lymphocytes # (Auto) 1.36 K/uL Monocytes # (Auto) 0.58 K/uL Eosinophils # (Auto) 0.16 K/uL Basophils # (Auto) 0.01 K/uL RDW Standard Deviation 43.0 fL RDW Coefficient of Variation 13.2 % Immature Granulocyte % (Auto) 0.8 % Immature Granulocyte # (Auto) 0.07 K/uL Prothrombin Time 10.9 SECONDS Prothromb Time International Ratio 1.0 Activated Partial Thromboplast Time 23.6 SECONDS Partial Thromboplastin Ratio 0.9 Sodium Level 138 mmol/L 139 mmol/L Potassium Level 4.3 mmol/L 4.3 mmol/L Chloride Level 102 mmol/L 106 mmol/L Carbon Dioxide Level 25 mmol/L 24 mmol/L Anion Gap 11.0 mmol/L 9.0 mmol/L Blood Urea Nitrogen 30 mg/dl 27 mg/dl Creatinine 1.60 mg/dl 1.60 mg/dl Est Creatinine Clear Calc Drug Dose 56.7 ml/min 56.7 ml/min Estimated GFR () 52.4 52.4 Estimated GFR (Non- 45.2 45.2 BUN/Creatinine Ratio 18.8 17.0 Random Glucose 119 mg/dl 262 mg/dl Calcium Level 10.0 mg/dl 9.2 mg/dl Magnesium Level 2.3 mg/dl 2.1 mg/dl Total Bilirubin 0.7 mg/dl Direct Bilirubin 0.1 mg/dl Aspartate Amino Transf (AST/SGOT) 28 U/L Alanine Aminotransferase (ALT/SGPT) 50 U/L Alkaline Phosphatase 50 U/L Total Creatine Kinase 194 U/L 160 U/L 176 U/L Creatine Kinase MB 2.2 ng/ml 1.7 ng/ml 1.2 ng/ml Creatine Kinase MB Ratio 1.1 1.1 0.7 Troponin I 0.059 ng/ml 0.049 ng/ml 0.047 ng/ml Total Protein 7.7 gm/dl Albumin 4.1 gm/dl Lipase 275 U/L Thyroid Stimulating Hormone (TSH) 4.900 uIu/ml Free Thyroxine 1.11 ng/dl Chemistry Specimen Hemolysis Medical Emergencies . Who to Call and When: Medical Emergencies: If at any time you feel your situation is an emergency, please call 911 immediately. . Non-Emergent Contact Non-Emergency issues call your: Primary Care Provider Call Non-Emergent contact if: you have a fever, your pain is not controlled . Past History Medical & Surgical History: (1) Hypoxemia (2) CHF (congestive heart failure) (3) Elevated troponin I level . "Provider Documentation" section prepared by [employer]. VTE Core Measure Inpt VTE Proph given/why not?: SCD's
--- NOTE | 2016-12-02 12:11 | Discharge Summary ---
Discharge Summary Admission Date: Dec 02, 2016 at 00:22 Discharge Date: Dec 02, 2016 Discharge Disposition: Home Principal Diagnosis: elevated troponinss sec to chronic CHF Consultations: cards Medication Reconciliation Continued Medications: Acetaminophen/Codeine (Tylenol W/Codeine #3) 300 Mg/30 Mg Tab 1 TAB PO Q6 PRN for Pain, TAB Albuterol Inhaler (Ventolin Inhaler) Aers 2 PUFFS INH QID PRN for Wheezing, #5 INHALER Aspirin (Aspirin 81) 81 Mg Tab 81 MG PO DAILY Atorvastatin (Lipitor) 10 Mg Tab 10 MG PO DAILY, TAB Carvedilol (Carvedilol) 12.5 Mg Tab 12.5 MG PO BID, #180 Cholecalciferol (Vitamin D 1000 Unit) 1,000 Unit Cap 1000 INTER.UNIT PO DAILY, CAP Coenzyme Q10 (Ubidecarenone) (Co Q10) 50 Mg Cap 1 CAP PO DAILY, CAP Cyanocobalamin (Vitamin B-12) 500 Mcg Tab 500 MCG PO DAILY, TAB Fenofibrate (Tricor) 54 Mg Tab 54 MG PO DAILY, #90 Furosemide (Furosemide) 40 Mg Tab 20 MG PO BID, #180 Glimepiride (Glimepiride) 1 Mg Tab 1 MG PO DAILY Lisinopril (Zestril) 5 Mg Tab 5 MG PO DAILY, TAB [place]-3 Fatty Acids (Fish Oil) 1 Cap Cap 1 CAP PO DAILY Triamcinolone Acet 0.1% (Aristocort 0.1%) Cr 1 APPLN TOP BID PRN for UNK Referrals At Discharge Follow up Referrals: Physician Referral - Within 2 Weeks with Karen Pablo M.D. Discharge Exam Review of Systems: Constitutional: No chills Respiratory: No sputum Abdomen: No nausea Musculoskeletal: No muscle pain Genitourinary - Male: No hematuria Neurologic: No memory loss Endocrine: No fatigue Physical Exam: General Appearance: WD/WN, no apparent distress Eyes: normal inspection, EOMI ENT: hearing grossly normal, pharynx normal Neck: supple, no JVD Respiratory/Chest: lungs clear, no accessory muscle use Cardiovascular: no gallop Abdomen / GI: normal bowel sounds, no organomegaly Extremities: normal capillary refill Neurologic/Psychiatric: alert Skin: warm/dry Hospital Course A 61 yo male comes with Elevated troponin, with nonspecific ST-T changes, secondary to chronic systolic CHF, echo done today EF 25% status post AICD was admitted to telemetry unit, serial cardiac enzymes was trended down, 2-D echocardiogram with Dopplers EF 25%. appreciated hydrographical technical officer Dr. Jose input. patient is stable from cardiac standpoint continue aspirin 81 mg by mouth daily, carvedilol 12.5 mg by mouth twice a day, furosemide 20 mg by mouth twice a day, lisinopril 5 mg by mouth daily. Acute kidney injury, cont [place] for now and follow up with PCP for further work up , check BMP in 1 week Hypercholesterolemia--continue atorvastatin 10 mg by mouth daily and fenofibrate 54 mg by mouth daily. Diabetes mellitus--continue glimepiride 1 mg by mouth daily, Vitamin B12 deficiency--continue supplement 500 g by mouth daily. f/u PCP and cards 2 weeks Total Time Spent: Greater than 30 minutes This includes examination of the patient, discharge planning, medication reconciliation, and communication with other providers. Discharge Instructions Please refer to the electronic Patient Visit Report (Discharge Instructions) for additional information. Additional Copies To Karen Pablo M.D.
--- NOTE | 2016-12-02 13:31 | CARDIOLOGY CONSULTATION ---
DATE OF CONSULTATION: 12/02/2016 DATE OF CONSULTATION: 12/02/2016. REQUESTING: Dr. Rob Vences. Dear Dr. Vences: It was a pleasure to see Claudio today in consultation with regards to his increased abdominal distention and frequent ventricular ectopy and chronic troponin elevations. As you know, he is a very pleasant 61-year-old gentleman who is known to have severe nonischemic cardiomyopathy dating back to 1980. He notes he was in [place] recently for about a week visiting his sister, he did not take his scale with him. He also notes that although they only ate out dinner once she did cook and he describes very good meals each evening. His baseline weight is approximately 242 pounds. He notes when he returned, his weight was up about 4 pounds. He was complaining of increased abdominal distention and fullness. His appetite was reduced over the last couple of days. He went to see his primary care provider yesterday who was concerned given his increased abdominal distention for heart failure symptoms. He also complained of some mild abdominal discomfort. He was admitted. CAT scan of his abdomen and pelvis was performed which does reveal significant hepatomegaly with fatty infiltration of his liver. He was also found to have 1.7 cm partially exophytic cyst arising from the interpolar left kidney. There were no acute infectious or inflammatory findings and there was no evidence of ascites. This morning, he is feeling well, he is ambulating in the hallway, his abdominal distention has resolved. He has no shortness of breath. He denies any chest pain or chest pressure, chest heaviness. He did have some left arm discomfort when he was in [place] lasted 48 hours and he notes activity did not change it in any way. He had no central chest pressure or chest heaviness with it. He denies any lightheadedness, dizziness, presyncope or syncope. He usually sleeps in bed or in a chair which is not different than his baseline. He denies any fevers or chills, although he notes he just did not quite feel well. The rest of the review of systems is otherwise negative. PAST MEDICAL HISTORY: 1. Nonischemic cardiomyopathy dating back to 1980 with severe left ventricular dysfunction and EF in the range of 25% confirmed by echo today. 2. Severely dilated left ventricle. 3. History of significant alcohol abuse, nasal cocaine abuse, likely contributing to his cardiomyopathy. 4. Obstructive sleep apnea, intolerant of CPAP. 5. Chronic kidney disease with a creatinine of approximately 1.7. 6. History of hepatitis C status post what sounds like ribavirin pegylated interferon. 7. History of TIA. 8. Device interrogations previously suggesting short periods of paroxysmal atrial fibrillation. 9. Frequent ventricular ectopy. 10. Status post Medtronic dual chamber defibrillator for primary prevention. 11. History of neuropathic neck and shoulder discomfort. 12. COPD. 13. Chronic systolic heart failure. 14. Diabetes mellitus type 2. 15. Hypertension. 16. Hypercholesterolemia. MEDICATIONS: Reviewed in electronic medical record. ALLERGIES: Advair, digoxin, doxycycline, Epitol, Flexeril, fluticasone, metformin, Symbicort and Tegretol. SOCIAL HISTORY: Denies any current tobacco use, stopping in 2007 having smoked 2 packs per day for 20 years. He denies any alcohol, stopping in 2005. He does describe himself as an alcoholic prior to that. He denies any current drug abuse but in the past used cocaine and smoked it regular. FAMILY HISTORY: Noncontributory. PHYSICAL EXAMINATION: GENERAL: He is awake, alert, oriented x3. He is in no acute distress. He looks his baseline. VITAL SIGNS: His heart rate is 87, respirations 16, blood pressure 128/83, his sats 94% on room air. HEAD, EYES, EARS, NOSE, AND THROAT: Severely reduced carotid upstrokes, no evidence of carotid bruits. Jugular venous pressure cannot be assessed due to his neck size. His sclerae is anicteric. Hearing is normal. LUNGS: Clear to auscultation bilaterally. No rales, rhonchi or wheezing. HEART: Regular rate and rhythm with frequent ventricular ectopy. No appreciable murmurs, rubs or gallops. ABDOMEN: Soft, chronically distended, positive bowel sounds, nontender. EXTREMITIES: No clubbing, cyanosis or edema. NEUROLOGIC: He is awake, alert, oriented x3. PSYCHIATRIC: His affect appeared appropriate. DIAGNOSTIC STUDIES: His CAT scan was reviewed and discussed above. Chest x-ray cardiomegaly, defibrillator, no evidence of heart failure. LABORATORY DATA: His CBC was normal. His creatinine is 1.6 with a BUN of 27. His troponins are minimally elevated at 0.049 and 0.059. His TSH was mildly elevated but his free T4 was normal. IMPRESSION: 1. Severe nonischemic cardiomyopathy confirmed by echocardiogram today. 2. Severely dilated left ventricle. 3. History of negative cardiac catheterization in 2007. 4. Medtronic dual chamber defibrillator for primary prevention. 5. Chronic kidney disease with baseline creatinine 1.7. 6. Hypertension. 7. Neuropathic neck and shoulder discomfort. 8. Chronic troponin elevations. 9. Abdominal distention, which has resolved. As discussed with Dr. Vences, he is known to have frequent ventricular ectopy. He is on beta blockers with carvedilol 12.5 mg b.i.d. He is on appropriate heart failure regimen. He does have a defibrillator to reduce his risk of sudden cardiac . It is unclear whether his abdominal distention was some mild heart failure or if it was just constipation due to his dietary changes visiting his sister. He did ambulate today in the hallway and feels well. He does have significant hepatomegaly, although there is no mention of cirrhosis. Additionally, there was no ascites. His chest x-ray was not read as consistent with heart failure. I believe he can be discharged home on his current medical regimen as an outpatient. If there is room when he is not lightheaded or dizzy we can try to increase his carvedilol 18.75 mg b.i.d. and then eventually to 25 mg b.i.d. All this was discussed with the patient and the primary service. In addition, his last device interrogation from 10/25/2016 revealed one episode of nonsustained VT for which he did not receive therapy and there were no atrial arrhythmias to suggest recurrent atrial fibrillation.
[2016-12-04] MEDS ORDERED: FENO54TA PO (09:19)
[2016-12-04] MEDS ORDERED: CHOL1000 PO (09:34)
[2016-12-04] MEDS ORDERED: IPRASOL4 INH (09:34)
[2017-03-16] MEDS ORDERED: TIOT1AER2 INH (09:58)
[2017-03-16] MEDS ORDERED: OXYC-57 PO (09:58)
[2017-03-16] MEDS ORDERED: CARV25TA PO (09:58)
== END 2016-12-02 13:27 | disposition home or self-care (01) | DRG 292 ==
LOC: ENRESERVDT → ENRESERVTM → C.EDB 17:18 → C.2T 12-02 00:22
PROVIDERS: ADMIT Hospitalist; ATTEND Hospitalist
DX: I50.22 Chronic systolic (congestive) heart failure (principal); N17.9 Acute kidney failure, unspecified; I42.9 Cardiomyopathy, unspecified; J44.9 Chronic obstructive pulmonary disease, unspecified; E11.9 Type 2 diabetes mellitus without complications; E78.00 Pure hypercholesterolemia, unspecified; G47.33 Obstructive sleep apnea (adult) (pediatric); I12.9 Hypertensive chronic kidney disease with stage 1 through stage 4 chronic kidney disease, or unspecified chronic kidney disease; N18.9 Chronic kidney disease, unspecified; E53.8 Deficiency of other specified B group vitamins; K76.0 Fatty (change of) liver, not elsewhere classified; Z95.810 Presence of automatic (implantable) cardiac defibrillator; Z87.891 Personal history of nicotine dependence; Z86.73 Personal history of transient ischemic attack (TIA), and cerebral infarction without residual deficits

== ENCOUNTER → 2016-12-21 | Day surgery (SDC) | payer OTHER ==
[2016-12-04 09:19] VITALS: Ht 172.7 cm; Wt 109.1 kg
[~2016-12-21] VITALS: Ht 172.7 cm; Wt 109.1 kg
[~2016-12-21] MED LIST changes: +ACET-749 PO; -ACET300T2 PO; +ATOR-26 PO; +BMX1 PO; +CARV25TA PO; -CARV25TA2 PO; +CHOL1000 PO; -CHOL100027 PO; -CLOP1TAB15 PO; +COEN1CAP28 PO; -COEN50CA9 PO; +CRG125 PO; -FENO145T26 PO; +FENO54TA PO; +FENTANYL CITRATE INJ 50 MCG/1 ML 2 ML VIAL ONE; +GLIM2TAB PO; -IMDSR30 PO; +IPRA1AER2; +IPRASOL4 INH; +LIDOCAINE HCL 2% 2 ML VIAL (20MG/ML) ONE; +LISI-729 PO; -LSN5 PO; +LSX40 PO; +NTRSLP4 SL; +OXYC-57 PO; +PROPOFOL IV EMULSION 10 MG/ML 20 ML VIAL IV ONE; +SODIUM CHLORIDE 0.9% 500ML 500 ML IV ONE; +TIOT1AER2 INH; +VNTHFA/IN INH
--- NOTE | 2016-12-21 15:05 | Endo History and Physical ---
History & Physical Date of Service: Dec 21, 2016. Chief Complaint: screening Referring Physician: Dr. Karen Pablo History of Present Illness screening colon Past Medical History Diabetes, Pacemaker, Asthma, CHF, Hypertension, COPD Past Surgical History Hx Cardiac Surgery: Yes (HEART CATH-NO STENTS) Hx Internal Defibrillator: Yes (MEDTRONIC) Hx Pacemaker: Yes (MEDTRONIC) Hx Abdominal Surgery: Yes (LIVER BIOPSY) Hx of Implantable Prosthesis: No Hx Post-Op Nausea and Vomiting: No Hx Cancer Surgery: No Hx Thoracic Surgery: No Hx Orthopedic: No Hx Urinary Tract Surgery: No Family History None Social History Smoking Status: Former Smoker Hx Substance Use: Yes (PAIN MEDS) Hx Alcohol Use: No Allergies Coded Allergies: Budesonide (Verified Allergy, Unknown, TACHYCARDIA, SOB, 12/04/16) Carbamazepine (Verified Allergy, Unknown, TACHYCARDIA, PANIC ATTACK, ) Cyclobenzaprine (Verified Allergy, Unknown, UNK, 12/04/16) Doxycycline (Verified Allergy, Unknown, ABD PAIN, 12/04/16) Fluticasone (Verified Allergy, Unknown, UNK, 12/04/16) Formoterol (Verified Allergy, Unknown, TACHYCARDIA, SOB, 12/04/16) Salmeterol (Verified Allergy, Unknown, ANAPHYLAXIS, 12/04/16) Sodium Propionate (Verified Allergy, Unknown, SHORTNESS OF BREATH, 12/04/16 ) Digoxin (Verified Adverse Reaction, Unknown, BACK AND STOMACH PAIN, ) Metformin (Verified Adverse Reaction, Unknown, MUSCLE ACHES IN BVACK AND KIDNEYS, 12/04/16) Current Medications Reported Home Medications Medications Dose Route/Sig Max Daily Dose Days Date Category Vitamin D3 (Cholecalciferol) 1,000 Unit Tab 1 Tab PO QAM 90 12/04/16 Reported Duoneb (Ipratropium-Albuterol) 3 Ml Nebu 1 Treatment INH Q4H PRN 12/04/16 Reported Tricor (Fenofibrate) 54 Mg Tab 54 Mg PO HS 12/04/16 Reported Tylenol W/Codeine #3 (Acetaminophen/Codeine Phosphate) 300 Mg/30 Mg Tab 1 Tab PO Q6 PRN 12/01/16 Reported Co Q10 (Coenzyme Q10) 50 Mg Cap 1 Cap PO QAM 12/01/16 Reported Zestril (Lisinopril) 5 Mg Tab 5 Mg PO QAM 12/01/16 Reported Carvedilol 12.5 Mg Tab 12.5 Mg PO BID 12/01/16 Reported Furosemide 40 Mg Tab 20 Mg PO BID 12/01/16 Reported Aspirin 81 (Aspirin) 81 Mg Tab 81 Mg PO QAM 03/01/15 Reported Vitamin B-12 (Cyanocobalamin) 500 Mcg Tab 500 Mcg PO QAM 03/01/15 Reported Ventolin Inhaler (Albuterol) Aers 2 Puffs INH QID PRN 03/01/15 Reported Fish Oil ([place]-3 Fatty Acids) 1 Cap Cap 1 Cap PO QAM 03/01/15 Reported Glimepiride 1 Mg Tab 1 Mg PO QAM 03/01/15 Reported Aristocort 0.1% (Triamcinolone Acetonide) Cr 1 Appln TOP BID PRN 03/01/15 Reported Lipitor (Atorvastatin Calcium) 10 Mg Tab 10 Mg PO HS 03/01/15 Reported Vital Signs Weight (Kilograms): 109.09 Height (Feet): 5 Height (Inches): 8 Date Time Temp Pulse Resp B/P Pulse Ox O2 Delivery O2 Flow Rate FiO2 12/21/16 14:09 36.5 55 20 130/96 95 Room Air Physical Exam AAo x3 Nl s1s2 lungs CTA Abd soft NT/ND + BS - CCE Assessment and Plan screening colonoscopy
--- NOTE | 2016-12-21 15:53 | GI REPORT ---
Procedure Date: 12/21/2016 2:50 PM Procedure: Colonoscopy Indications: High risk colon cancer surveillance: Personal history of colonic polyps Medicines: Propofol per Anesthesia Complications: No immediate complications. Estimated blood loss: Minimal. Estimated Blood Loss: Estimated blood loss was minimal. Procedure: Pre-Anesthesia Assessment: - Prior to the procedure, a History and Physical was performed, and patient medications and allergies were reviewed. The patient's tolerance of previous anesthesia was also reviewed. The risks and benefits of the procedure and the sedation options and risks were discussed with the patient. All questions were answered, and informed consent was obtained. Prior Anticoagulants: The patient has taken no previous anticoagulant or antiplatelet agents. ASA Grade Assessment: III - A patient with severe systemic disease. After reviewing the risks and benefits, the patient was deemed in satisfactory condition to undergo the procedure. After I obtained informed consent, the scope was passed under direct vision. Throughout the procedure, the patient's blood pressure, pulse, and oxygen saturations were monitored continuously. The On-site loaner was introduced through the anus and advanced to the cecum, identified by appendiceal orifice and ileocecal valve. The colonoscopy was performed without difficulty. The patient tolerated the procedure well. The quality of the bowel preparation was good. Findings: The perianal and digital rectal examinations were normal. Pertinent negatives include normal sphincter tone, no palpable rectal lesions and no anal lesion or abnormality was detected. Two sessile polyps were found at 60 cm proximal to the anus. The polyps were 5 mm in size. These polyps were removed with a cold snare. Resection and retrieval were complete. Estimated blood loss was minimal. Verification of patient identification for the specimen was done by the physician and central supply technician supervisor using the patient's name and medical record number. Three sessile polyps were found at 50 cm proximal to the anus. The polyps were 3 to 6 mm in size. These polyps were removed with a cold snare. Resection and retrieval were complete. Verification of patient identification for the specimen was done by the physician and central supply technician supervisor using the patient's name and medical record number. To prevent bleeding after the polypectomy, two hemostatic clips were successfully placed (MR conditional). There was no bleeding at the end of the procedure. Three sessile polyps were found in the rectum. The polyps were 2 to 3 mm in size. These polyps were removed with a cold biopsy forceps. Resection and retrieval were complete. The exam was otherwise without abnormality. The retroflexed view of the distal rectum and anal verge was normal and showed no anal or rectal abnormalities. A few small-mouthed diverticula were found in the sigmoid colon. Impression: - Two 5 mm polyps at 60 cm proximal to the anus, removed with a cold snare. Resected and retrieved. - Three 3 to 6 mm polyps at 50 cm proximal to the anus, removed with a cold snare. Resected and retrieved. Clips (MR conditional) were placed. - Three 2 to 3 mm polyps in the rectum, removed with a cold biopsy forceps. Resected and retrieved. - The examination was otherwise normal. - The distal rectum and anal verge are normal on retroflexion view. Recommendation: - Discharge patient to home (ambulatory). - Patient has a contact number available for emergencies. The signs and symptoms of potential delayed complications were discussed with the patient. Return to normal activities tomorrow. Written discharge instructions were provided to the patient. - Repeat colonoscopy for surveillance based on pathology results. - Return to referring physician as previously scheduled. MD Jeffery Tovar MD 12/21/2016 3:53:21 PM This report has been signed electronically. Note Initiated On: 12/21/2016 2:50 PM
--- NOTE | 2016-12-21 15:54 | Anesthesiology Progress Note ---
Anesthesia Post Op Note Date & Time Dec 21, 2016 at 15:55 Vital Signs Pain Intensity: 0 Vital Signs Past 12 Hours Date Time Temp Pulse Resp B/P Pulse Ox O2 Delivery O2 Flow Rate FiO2 12/21/16 14:09 36.5 55 20 130/96 95 Room Air Notes Mental Status: alert / awake / arousable, participated in evaluation Pt Amnestic to Procedure: Yes Nausea / Vomiting: adequately controlled Pain: adequately controlled Airway Patency, RR, SpO2: stable & adequate BP & HR: stable & adequate Hydration State: stable & adequate Anesthetic Complications: no major complications apparent
--- NOTE | 2016-12-21 15:57 | Discharge Instructions ---
Endoscopy Patient Instructions Date / Procedure(s) Performed Dec 21, 2016. Colonoscopy Allergy Information Coded Allergies: Budesonide (Verified Allergy, Unknown, TACHYCARDIA, SOB, 12/04/16) Carbamazepine (Verified Allergy, Unknown, TACHYCARDIA, PANIC ATTACK, ) Cyclobenzaprine (Verified Allergy, Unknown, UNK, 12/04/16) Doxycycline (Verified Allergy, Unknown, ABD PAIN, 12/04/16) Fluticasone (Verified Allergy, Unknown, UNK, 12/04/16) Formoterol (Verified Allergy, Unknown, TACHYCARDIA, SOB, 12/04/16) Salmeterol (Verified Allergy, Unknown, ANAPHYLAXIS, 12/04/16) Sodium Propionate (Verified Allergy, Unknown, SHORTNESS OF BREATH, 12/04/16 ) Digoxin (Verified Adverse Reaction, Unknown, BACK AND STOMACH PAIN, ) Metformin (Verified Adverse Reaction, Unknown, MUSCLE ACHES IN BVACK AND KIDNEYS, 12/04/16) Discharge Date / Findings Dec 21, 2016. polyps- all removed Medication Instructions Stopped Medication(s): stopped vitamins,supplements on Sunday,took ASA yesterday Restart Stopped Medication(s): Reported Home Medications Medications Dose Route/Sig Max Daily Dose Days Date Category Vitamin D3 (Cholecalciferol) 1,000 Unit Tab 1 Tab PO QAM 90 12/04/16 Reported Duoneb (Ipratropium-Albuterol) 3 Ml Nebu 1 Treatment INH Q4H PRN 12/04/16 Reported Tricor (Fenofibrate) 54 Mg Tab 54 Mg PO HS 12/04/16 Reported Tylenol W/Codeine #3 (Acetaminophen/Codeine Phosphate) 300 Mg/30 Mg Tab 1 Tab PO Q6 PRN 12/01/16 Reported Co Q10 (Coenzyme Q10) 50 Mg Cap 1 Cap PO QAM 12/01/16 Reported Zestril (Lisinopril) 5 Mg Tab 5 Mg PO QAM 12/01/16 Reported Carvedilol 12.5 Mg Tab 12.5 Mg PO BID 12/01/16 Reported Furosemide 40 Mg Tab 20 Mg PO BID 12/01/16 Reported Aspirin 81 (Aspirin) 81 Mg Tab 81 Mg PO QAM 03/01/15 Reported Vitamin B-12 (Cyanocobalamin) 500 Mcg Tab 500 Mcg PO QAM 03/01/15 Reported Ventolin Inhaler (Albuterol) Aers 2 Puffs INH QID PRN 03/01/15 Reported Fish Oil ([place]-3 Fatty Acids) 1 Cap Cap 1 Cap PO QAM 03/01/15 Reported Glimepiride 1 Mg Tab 1 Mg PO QAM 03/01/15 Reported Aristocort 0.1% (Triamcinolone Acetonide) Cr 1 Appln TOP BID PRN 03/01/15 Reported Lipitor (Atorvastatin Calcium) 10 Mg Tab 10 Mg PO HS 03/01/15 Reported Reported Home Medications Medications Dose Route/Sig Max Daily Dose Days Date Category Vitamin D3 (Cholecalciferol) 1,000 Unit Tab 1 Tab PO QAM 90 12/04/16 Reported Duoneb (Ipratropium-Albuterol) 3 Ml Nebu 1 Treatment INH Q4H PRN 12/04/16 Reported Tricor (Fenofibrate) 54 Mg Tab 54 Mg PO HS 12/04/16 Reported Tylenol W/Codeine #3 (Acetaminophen/Codeine Phosphate) 300 Mg/30 Mg Tab 1 Tab PO Q6 PRN 12/01/16 Reported Co Q10 (Coenzyme Q10) 50 Mg Cap 1 Cap PO QAM 12/01/16 Reported Zestril (Lisinopril) 5 Mg Tab 5 Mg PO QAM 12/01/16 Reported Carvedilol 12.5 Mg Tab 12.5 Mg PO BID 12/01/16 Reported Furosemide 40 Mg Tab 20 Mg PO BID 12/01/16 Reported Aspirin 81 (Aspirin) 81 Mg Tab 81 Mg PO QAM 03/01/15 Reported Vitamin B-12 (Cyanocobalamin) 500 Mcg Tab 500 Mcg PO QAM 03/01/15 Reported Ventolin Inhaler (Albuterol) Aers 2 Puffs INH QID PRN 03/01/15 Reported Fish Oil ([place]-3 Fatty Acids) 1 Cap Cap 1 Cap PO QAM 03/01/15 Reported Glimepiride 1 Mg Tab 1 Mg PO QAM 03/01/15 Reported Aristocort 0.1% (Triamcinolone Acetonide) Cr 1 Appln TOP BID PRN 03/01/15 Reported Lipitor (Atorvastatin Calcium) 10 Mg Tab 10 Mg PO HS 03/01/15 Reported Provider Instructions Activity Restrictions - No exercising or heavy lifting for 24 hours. - Do not drink alcohol the day of the procedure. - Do not drive a car or operate machinery until the day after the procedure. - Do not make any important decisions or sign important papers in 24 hours after the procedure. Following Day: - Return to full activity which may include returning to work/school. Diet Start your diet with liquids and light foods (jello, soup, juice, toast). Then eat your usual diet if not nauseated. Treatment For Common After Affects For mild abdominal pain, bloating, or excessive gas: - Rest - Eat lightly - Lie on right side Follow-Up Information Follow-up with Dr. Karen Pablo as scheduled Anesthesia Information What You Should Know You have had a procedure that required some medicine to reduce anxiety and discomfort. This treatment is called moderate sedation. After receiving the treatment, you may be sleepy, but you will be able to breathe on your own. The effects of the treatment may last for several hours. Follow these instructions along with Activity/Diet recommendations noted above: * Do NOT do anything where dizziness or clumsiness would be dangerous. * Rest quietly at home today, then you can be up and about tomorrow. * Have a responsible person stay with you the rest of today. * You may have had an I.V. today. If so, you may take the dressing off later today. Recommendations Call your doctor if: * Trouble breathing * Continuous vomiting for more than 24 hours * Temperature above 101 degrees * Severe abdominal pain or bloating * Pain not relieved by pain medicine ordered * There is increased drainage or redness from any incision * A large amount of rectal bleeding greater than 2-3 tablespoons. (If you had a polyp/s removed or have hemorrhoids, a small amount of blood - from the rectum is to be expected.) * You have any unanswered questions or concerns. IN THE EVENT OF A SERIOUS EMERGENCY, GO TO THE NEAREST EMERGENCY ROOM Your discharge instructions were prepared by provider Jeffery Olson. Patient Instructions Signature Page Claudio Vee Patient (or Guardian) Signature/Date: I have read and understand the instructions given to me by my caregivers. Caregiver/RN/Doctor Signature/Date: The above-named patient and/or guardian has received patient instructions on this date. + Original Patient Signature Page (only) stays with chart. Please make copy for patient.
[2016-12-21 16:14] VITALS: BP 131/75; PULSE 72; O2SAT 94
== END | disposition home or self-care (01) ==
LOC: C.GI 13:35
PROVIDERS: ATTEND Internal Medicine Gastroenterology
DX: Z12.11 Encounter for screening for malignant neoplasm of colon (principal); Z86.010 Personal history of colon polyps; K63.5 Polyp of colon; K62.1 Rectal polyp; K64.8 Other hemorrhoids; J45.909 Unspecified asthma, uncomplicated; I10 Essential (primary) hypertension; J44.9 Chronic obstructive pulmonary disease, unspecified; I50.9 Heart failure, unspecified; Z98.890 Other specified postprocedural states; Z95.5 Presence of coronary angioplasty implant and graft; Z87.891 Personal history of nicotine dependence; Z88.2 Allergy status to sulfonamides; Z88.8 Allergy status to other drugs, medicaments and biological substances

== ENCOUNTER → 2017-01-10 | Outpatient (CLI) | payer OTHER ==
[~2017-01-10] MED LIST changes: -FENTANYL CITRATE INJ 50 MCG/1 ML 2 ML VIAL ONE; -LIDOCAINE HCL 2% 2 ML VIAL (20MG/ML) ONE; -PROPOFOL IV EMULSION 10 MG/ML 20 ML VIAL IV ONE; -SODIUM CHLORIDE 0.9% 500ML 500 ML IV ONE
--- NOTE | 2017-01-10 13:49 | DIAGNOSTIC IMAGING REPORT ---
EXAMINATION: RENAL ULTRASOUND CLINICAL HISTORY: Right renal mass COMPARISON STUDY: 03/03/2015, CT scan dated 12/01/2016 FINDINGS: The right kidney measures 11.6 cm. The left kidney measures 12.3 cm. There is no evidence of hydronephrosis. There is an 11 mm mid pole left renal cyst. The 3.6 cm upper pole right renal mass described on CT scanning is not visible ultrasonographically. As was previously recommended, a dedicated renal CT scan is recommended in follow-up. Note is made of hepatic steatosis. No bladder abnormalities are visualized. Bilateral ureteral jets were visualized. IMPRESSION : 1. Hepatic steatosis 2. 11 mm left renal cyst 3. The 3.6 cm upper pole right renal mass described on the recent CT scan is not visible ultrasonographically. As was previously recommended, a dedicated renal CT scan is recommended in follow-up Electronically signed by: Juan Ramon López M.D. 01/10/2017 1:48 PM Dictated Date/Time: 01/10/2017 1:43 PM
== END | disposition home or self-care (01) ==
LOC: C.ULTRBC 13:08
PROVIDERS: ATTEND Urology
DX: N28.89 Other specified disorders of kidney and ureter (principal); K76.0 Fatty (change of) liver, not elsewhere classified; N28.1 Cyst of kidney, acquired

== ENCOUNTER → 2017-01-18 | Outpatient (CLI) | payer OTHER ==
[~2017-01-18] MED LIST changes: +OPTIRAY 320 IV PRN
--- NOTE | 2017-01-18 10:41 | DIAGNOSTIC IMAGING REPORT ---
CT ABDOMEN COMBO CT DOSE: 1895.73 mGycm CLINICAL HISTORY: Right renal mass TECHNIQUE: Unenhanced images were obtained through the upper abdomen. The patient was then scanned in a dynamic helical fashion during intravenous administration 116 cc of Optiray 320. Delayed 5 images were acquired. COMPARISON STUDY: 12/01/2016 FINDINGS: There is mild hepatic steatosis. No focal hepatic masses are visualized. No gallbladder abnormalities are visualized. No splenic masses are visualized. No pancreatic masses are visualized. There is no evidence of abdominal aortic dilatation. No adrenal masses are visualized. There are no pathologically enlarged upper abdominal lymph nodes. There is a 3.7 cm mid to upper pole right renal mass. This has a precontrast Hounsfield attenuation value of 32 and post contrast attenuation value of 97. The findings are consistent with a solid renal neoplasm. The renal vein appears patent. There is an 8 mm lower pole left renal cyst. There is a 12 mm mid pole left renal cyst. In addition there is a subtle 13 mm mid pole enhancing left renal mass suspicious for a second solid renal neoplasm. IMPRESSION: 1. 3.7 cm enhancing mid-upper pole right renal mass. This should be presumed to represent a renal cell carcinoma unless proven otherwise. 2. Subtle 13 mm enhancing mid pole left renal mass, suspicious for a contralateral solid renal neoplasm 3. No evidence of pathologic adenopathy 4. No CT evidence of renal vein invasion Electronically signed by: Juan Ramon López M.D. 01/18/2017 10:40 AM Dictated Date/Time: 01/18/2017 10:30 AM
== END | disposition home or self-care (01) ==
LOC: C.CTS 09:37
PROVIDERS: ATTEND Urology
DX: N28.89 Other specified disorders of kidney and ureter (principal)

== ENCOUNTER → 2017-02-15 | Outpatient (CLI) | payer OTHER ==
[~2017-02-15] MED LIST changes: -OPTIRAY 320 IV PRN
--- NOTE | 2017-02-15 17:00 | DIAGNOSTIC IMAGING REPORT ---
CHEST 2 VIEWS ROUTINE CLINICAL HISTORY: R06.02 Shortness of [id number] dyspnea COMPARISON STUDY: 12/01/2016 FINDINGS: Mild stable cardia megaly. Increased prominence pulmonary vasculature. Bipolar cardiac pacemaker/fibrillator. IMPRESSION: Mild congestive failure Electronically signed by: Néstor Lux M.D. 02/15/2017 4:58 PM Dictated Date/Time: 02/15/2017 4:58 PM
== END | disposition home or self-care (01) ==
LOC: C.RAD1850 16:27
PROVIDERS: ATTEND Physician Assistant Medical
DX: I50.9 Heart failure, unspecified (principal); R06.02 Shortness of breath

== ENCOUNTER → 2017-03-16 | Day surgery (SDC) | payer OTHER ==
[~2017-03-16] VITALS: Ht 172.7 cm; Wt 110.0 kg
[~2017-03-16] MED LIST changes: +ACETAMINOPHEN 325 MG TAB PO PRN; +ATOR10TA82 PO; -ATOR10TA88 PO; +FENTANYL CITRATE INJ 50 MCG/1 ML 2 ML VIAL ONE; +HEPARIN SOD (PORCINE) 1000 UNIT/ML 10 ML VIAL ONE; +MIDAZOLAM HCL 1 MG/ML 2ML VIAL ONE; +NITROGLYCERIN/D5W 100MCG/ML 20ML SYR ONE; +NiCARDipine HCL INJ 2.5 MG/ML 10 ML AMP ONE; +SODIUM CHLORIDE 0.9% 1000ML 1,000 ML IV SCH
[2017-03-16 09:01] VITALS: BP 143/97; PULSE 78; TEMP 36.7; O2SAT 97; Ht 172.7 cm; Wt 110.0 kg
--- NOTE | 2017-03-16 10:27 | History & Physical Bridge Note ---
H&P Re-Evaluation Bridge Note: I have examined the patient, reviewed the History & Physical and in the interval since the performance of the History & Physical I have noted the following changes of clinical significance: No changes noted
[2017-03-16 11:36] LABS: ISTAT ARTERIAL BLOOD GAS HCO3 25 meq/L (19-24); ISTAT ARTERIAL BLOOD GAS PCO2 46 mmHg (35-46); ISTAT ARTERIAL BLOOD GAS PO2 < 32 mmHg (80-95); ISTAT ARTERIAL BLOOD GAS pH 7.35 (7.35-7.45); ISTAT CARBON DIOXIDE 27 mEq/l (24-31)
[2017-03-16 11:36] LABS: ISTAT ARTERIAL BLOOD GAS HCO3 24 meq/L (19-24); ISTAT ARTERIAL BLOOD GAS PCO2 41 mmHg (35-46); ISTAT ARTERIAL BLOOD GAS PO2 64 mmHg (80-95); ISTAT ARTERIAL BLOOD GAS pH 7.38 (7.35-7.45); ISTAT CARBON DIOXIDE 25 mEq/l (24-31)
--- NOTE | 2017-03-16 11:57 | Procedure Note ---
Pre-Mod Sedation Assessment General Date of Moderate Sedation: Mar 16, 2017. Vital Signs: Vital Signs Past 12 Hours Date Time Temp Pulse Resp B/P Pulse Ox O2 Delivery O2 Flow Rate FiO2 03/16/17 11:45 77 16 117/74 94 Room Air 03/16/17 11:42 80 18 123/81 94 Room Air 03/16/17 11:37 77 18 127/80 95 Room Air 03/16/17 11:32 73 18 129/92 94 Room Air 03/16/17 11:27 74 18 136/94 97 Nasal Cannula 3 03/16/17 09:01 36.7 78 18 143/97 97 Room Air Review Cardiovascular: regular rate, rhythm, no edema Abdomen: normal bowel sounds, non tender Lungs: chest non-tender, lungs clear, normal breath sounds Pre-Sedation Airway Assessment Oral Cavity: WNL Able to Visualize Vocal Cords: No Short Thick Neck: Yes Hx of Sleep Apnea: Yes Smoking Status: Former Smoker Mallampati Classification: Class III ASA Classification: Class III Procedure Planning Contraindications-for Mod Sed: None Yes Notes The planned sedation has been discussed with the patient and consent obtained. I have identified the patient, determined the appropriateness of sedation and have assessed the patient immediately prior to the procedure. All medicine(s) and interventions are by my order.
--- NOTE | 2017-03-16 11:57 | Procedure Note ---
Post-Mod Sedation Assessment General Date of Moderate Sedation Mar 16, 2017. Vital Signs: Vital Signs Past 12 Hours Date Time Temp Pulse Resp B/P Pulse Ox O2 Delivery O2 Flow Rate FiO2 03/16/17 11:45 77 16 117/74 94 Room Air 03/16/17 11:42 80 18 123/81 94 Room Air 03/16/17 11:37 77 18 127/80 95 Room Air 03/16/17 11:32 73 18 129/92 94 Room Air 03/16/17 11:27 74 18 136/94 97 Nasal Cannula 3 03/16/17 09:01 36.7 78 18 143/97 97 Room Air Review - Discharge Criteria Vital Signs Stable: Yes Alert/Oriented/Conversant: Yes Returned to Baseline Mental St: Yes Nausea Absent/Minimal: Yes Pain/Discomfort/Absent/Minimal: Yes Normal/Baseline Respirations: Yes Active Bleeding?: No Pt Received D/C Instructions: Yes Prescriptions Given: None Specific Proced. D/C Criteria Distal Pulses Present (Cardiac: Yes Groin site assessed-Card Cath: N/A Voided Prior To Discharge: N/A Discharged Patients Adult Escort/Transportation: Yes
--- NOTE | 2017-03-16 12:06 | Discharge Instructions ---
Discharge Instructions Procedure Procedure Date: Mar 16, 2017. Reason for Visit: *Dr Doll To Do*, Sob. Discharge Discharge Date: Mar 16, 2017. Discharge Diagnosis: Coronary Artery Disease, Cardiomyopathy Last Recorded Wt (Kilograms): 110 Anesthesia Post Anesthesia Instructions: If you have had IV Sedation: * Do not drive today. * Resume driving when surgeon permits. * Do not make important decisions or sign legal documents today. * Call surgeon for: 1. Temperature elevations greater than 101 degrees F. 2. Uncontrollable pain. 3. Excessive bleeding. 4. Persistent nausea and vomiting. 5. Medication intolerance (nausea, vomiting or rash). * For nausea and vomiting use only clear liquids such as: tea, soda, bouillon until nausea subsides, then gradually increase diet as tolerated. * If you have any concerns or questions, call your surgeon's office. If physician is unavailable and it is an emergency, call 911 or go to the nearest emergency room. Instructions Activity Recommendations: limitations as noted below Recommended Home Diet: resume previous diet, low sodium, low cholesterol Allergies: Coded Allergies: Budesonide (Verified Allergy, Unknown, TACHYCARDIA, SOB, 12/04/16) Carbamazepine (Verified Allergy, Unknown, TACHYCARDIA, PANIC ATTACK, ) Cyclobenzaprine (Verified Allergy, Unknown, UNK, 12/04/16) Doxycycline (Verified Allergy, Unknown, ABD PAIN, 12/04/16) Fluticasone (Verified Allergy, Unknown, UNK, 12/04/16) Formoterol (Verified Allergy, Unknown, TACHYCARDIA, SOB, 12/04/16) Salmeterol (Verified Allergy, Unknown, ANAPHYLAXIS, 12/04/16) Sodium Propionate (Verified Allergy, Unknown, SHORTNESS OF BREATH, 12/04/16 ) Digoxin (Verified Adverse Reaction, Unknown, BACK AND STOMACH PAIN, ) Metformin (Verified Adverse Reaction, Unknown, MUSCLE ACHES IN BVACK AND KIDNEYS, 12/04/16) Follow Up Additional Instructions: ACTIVITY RECOMMENDATIONS: It is common to feel weak and fatigue for a few days. * Do not drive or operate any motorized equipment for the next 2 days. * Limit stair usage (2 or 3 trips a day only) for the next 2 days. * Do not lift anything heavier than 10 pounds for the next three days. * Do not engage in vigorous exercise or any sports for the next five days. * You may shower the day after your procedure, but do not immerse the area for three days. Cleanse the site gently with soap and water. SPECIAL CARE INSTRUCTIONS: * You may replace the pressure dressing or band-aid the morning after the procedure. * After your procedure, it is normal to have a small bruise or small lump at the site. Examine your site daily for any change in the bruise or lump, redness, swelling, drainage or numbness. Notify your doctor if any change. BLEEDING: * If there is a small amount of bleeding at the site, lie down and apply firm pressure with a clean cloth for ten minutes. When the bleeding stops, lie quietly keeping the procedure limb straight for six hours. Notify your doctor as soon as possible. * If the bleeding does not stop after ten minutes or if there is a large amount of bleeding or spurting, call 911 immediately. Continue to lie down and hold firm pressure until help arrives. SKIN IRRITATION: * You may experience some redness and/or swelling in the area where radiation was administered. If any skin irritation occurs, please contact your family physician. FOLLOW UP VISIT: Follow-up with Dr. Jose next week. Dennise Monteiro Recommendations: Call your doctor if: * Temperature above 101 degrees * Pain not relieved by pain medicine ordered * There is increased drainage or redness from any incision * You have any unanswered questions or concerns. Your Doctors Instructions noted above were prepared by provider Sam Doll. Patient Signature Section: Patient Instructions Signature Page Claudio Vee Patient (or Guardian) Signature/Date: I have read and understand the instructions given to me by my caregivers. Caregiver/RN/Doctor Signature/Date: The above-named patient and/or guardian has received patient instructions on this date. + Original Patient Signature Page (only) stays with chart. Please make copy for patient.
[2017-03-16 14:00] VITALS: BP 124/70; PULSE 72; O2SAT 96
--- NOTE | 2017-03-16 17:50 | Cardiac Catheterization ---
Procedure Note Procedure Date Mar 16, 2017. Pre-Procedure Diagnosis Angina, Cardiomyopathy AUC Score 7 Post-Procedure Diagnosis Severe CAD, Normal Intracardiac Pressures Procedure(s) Performed Coronary Angiography, Left Heart Cath, IVUS Blocker Polishing Dr. Doll Film Color Tester(s) Mel Estimated Blood Loss 15 Medication(s) Fentanyl, Heparin, Nitroglycerin, Versed, Lidocaine 1% Summary of Findings Indication: Cardiomyopathy, exertional dyspnea Access: 6Fr Right antecubital vein, 6Fr Slender Right Radial Artery Catheters: [place], JL3.5, 6Fr Isabella Findings: LM - 50% ostial stenosis, distal segment with heavily calcified 70% stenosis ( CSA 4.0 mm2) by IVUS LAD - Ostial 60% stenosis; proximal segment heavily calcified with 60-70% diffuse stenosis by IVUS, distal segment with 40% stenosis and LAD continues around apex. 60-70% ostial stenosis of 1st diagonal. Circumflex - 60% ostial stenosis; luminal irregularities distally and in large, early-bifurcating high OM1. RCA - Dominant; 40-50% mid segment focal stenosis; distal 50-60% focal stenosis prior to take-off of PDA; R-PDA with luminal irregularities RA 7 RV 33/7 MPA 29/15 (22) PCW 15 AoSat 91% PaSat 53% Hgb 15.2 GIANNI 3.5/1.6 TCO 4.9/2.2 Arterial Closure: TR Band IVUS performed via #BU 3.5 guide and BMW wire. No angiographic complications post procedure. Summary: 1. Multivessel disease with severe distal left main disease - Calcified LM 50% ostial, 70% distal with CSA of 4.0 mm2 by IVUS with disease extending into LAD/circumflex ostium - 60-70% diffuse, calcified proximal LAD. 60-70% ostial 1st diagonal - 50% mid RCA, 50-60% distal RCA 2. Normal intracardiac filling pressures. No pulmonary hypertension. 3. Reduced cardiac output Recommendations: With severe distal left main disease, low ejection fraction recommend evaluation for CABG. Will follow-up with Dr. Jose for further discussion regarding bypass surgery next week. Continue prior CLIFOTN/Beta-juanito, ASA and statin. 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 Data Cardiac Status Clinical evaluation leading to the procedure CAD Presntation: Stable angina Anginal Classification: CCS III Heart Failure: Yes, NYHA Class: CCS II Cardiogenic Shock w/in 24Hrs: No Cardiac Arrest w/in 24Hrs: No Imaging studies past 6 months: Yes Stress studies past 6 months: No Standard Exercise Stress Test: No Stress Echocardiogram: No Stress Testing w/SPECT MPI: No Cardiac CTA: No Coronary Anatomy Dominant: Right Left Main (% Stenosis): Ostial (50), Distal (70) LAD (% Stenosis): Ostial (60), Proximal (60-70) D1 (% Stenosis): Ostial (60) Circumflex (% Stenosis): Ostial (6-) RCA (% Stenosis): Mid (40-50), Distal (50-60) Diagnostic Physician's Name: Maik Doll MD Status: Elective Closure Device Percutaneous Entry Location: Radial Closure Device: Radial Band Recommendations: CABG Intraprocedure Events Significant Dissection: No Perforation: No
== END | disposition home or self-care (01) ==
LOC: C.CATH 08:10
PROVIDERS: ATTEND Internal Medicine Interventional Cardiology
DX: I25.10 Atherosclerotic heart disease of native coronary artery without angina pectoris (principal); I42.9 Cardiomyopathy, unspecified; E11.22 Type 2 diabetes mellitus with diabetic chronic kidney disease; I13.0 Hypertensive heart and chronic kidney disease with heart failure and stage 1 through stage 4 chronic kidney disease, or unspecified chronic kidney disease; I50.23 Acute on chronic systolic (congestive) heart failure; N18.9 Chronic kidney disease, unspecified; J44.9 Chronic obstructive pulmonary disease, unspecified; Z86.73 Personal history of transient ischemic attack (TIA), and cerebral infarction without residual deficits

== ENCOUNTER → 2017-03-26 | Outpatient (CLI) | payer OTHER ==
[~2017-03-26] MED LIST changes: -ACETAMINOPHEN 325 MG TAB PO PRN; -CRG125 PO; -FENO54TA PO; -FENTANYL CITRATE INJ 50 MCG/1 ML 2 ML VIAL ONE; -HEPARIN SOD (PORCINE) 1000 UNIT/ML 10 ML VIAL ONE; -IPRASOL4 INH; -MIDAZOLAM HCL 1 MG/ML 2ML VIAL ONE; -NITROGLYCERIN/D5W 100MCG/ML 20ML SYR ONE; -NiCARDipine HCL INJ 2.5 MG/ML 10 ML AMP ONE; -SODIUM CHLORIDE 0.9% 1000ML 1,000 ML IV SCH; -TRIA0.1C20 TOP
--- NOTE | 2017-03-27 05:43 | SPLIT NIGHT TECHNICIAN REPORT ---
[facility] Split Night Polysomnogram - Police Shift Commander Report Study date: 03/26/2017 Referring Physician: DR. 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 Date of : 1955 Height: 61 years, Height 5' 8" Sex: Male Weight: 243 lbs Age: 61 BMI: Medications: 36.94 SEE LIST OF 17 MEDICATIONS IN CHART. Patient History 61 YR. OLD MALE IN ROOM 5, PRESENTS [facility] FOR A SPLIT NIGHT STUDY OF AN AHI OF 10.PT. ALSO STATES THAT HE HAD A SLEEP STUDY MANY YEARS AGO BUT HE WAS'NT ABLE TO TOLERATE IT, HE STATES THAT HE HAS TRYED TO USE IT RECENTLY BUT IT DRYS HIS MOUTH OUT.PT. STATES THAT HE WAKES AT 3 OR 4 AM, FOR THE DAY. PT. ALSO STATES THAT HE USES 2+LITERS OF OXYGEN AT HOME, HE USES IT DURING THE DAY AND NIGHT.ESS=6. Parameters Monitored NPSG: E1-M2, E2-M1, Fp1-M2, Fp2-M1, F3-M2, F4-M2, F4-M1, C3-M2, C4-M2, C4-M1, O1-M2, O2-M2, O2-M1, T3-M2, T4-M1, P3-M2, P4-M1, CHIN1, CHIN2, HR, EKG, Legs, PFLOW, SNOR, FLOW, CFLOW, Tidal Volume, THOR, ABDO, SpO2, PLTH, CPRESS, ETCO2 Wave, ETCO2, pH SLEEP SUMMARY DATA DIAGNOSTIC TREATMENT Lights Out: 10:33:15 PM 1:16:45 AM Lights On: 1:05:45 AM 4:33:45 AM Total Recording Time (TRT): 155.5 min. 197.5 min. Total Sleep Time (TST): 106.5 min. 107.0 min. NREM Time: 106.5 min. 60.0 min. REM Time: 0.0 min. 47.0 min. Sleep Period Time (SPT): 144.5 min. 117.5 min. Sleep Efficiency (SE): 70 % 54 % Sleep Latency: 8.0 min. 47.5 min. Arousal Index: 18.6 10.1 PAP Treatment Levels: 6, 8, 10, 12, 14 * Optimal Pressure(s) SLEEP STAGING DATA DIAGNOSTIC TREATMENT Duration (min) TST % Duration (min) TST % Stage Wake: 49.0 min. -- 90.5 min. -- WASO: 38.0 min. -- 10.5 min. -- NREM: 106.5 min. 100 % 60.0 min. 56 % Stage N1: 5.5 min. 5 % 1.5 min. 1 % Stage N2: 101.0 min. 95 % 58.5 min. 55 % Stage N3: 0.0 min. 0 % 0.0 min. 0 % REM: 0.0 min. 0 % 47.0 min. 44 % POSITIONAL DATA Event Count Index Event Count Index Supine: 14 31.1 29 14.6 Supine NREM: 14 31.1 22 19.0 Supine REM: N/A N/A 7 9 Non-Supine: 8 6.0 N/A N/A Non-Supine NREM: 8 6.0 N/A N/A Non-Supine REM: N/A N/A N/A N/A AROUSAL SUMMARY DATA: Event Count Index Event Count Index Apnea Arousals: 0 0.6 0 0.6 Hypopnea Arousals: 8 4.5 3 1.7 Snore Arousals: 0 0.0 2 1.1 PLM Arousals: 0 0.0 0 0.0 Non-Specific Arousals: 19 10.7 11 6.2 Total Arousals: 33 18.6 18 10.1 MYOCLONUS (PLM) Event Count Index Event Count Index PLM: 10 5.6 4 2.2 PLM AROUSAL: 0 0.0 0 0.0 PLM W/O AROUSAL 10 5.6 4 2.2 PLM W/RESP EVENT 0 0.0 0 0.0 MYOCLONUS (PLM) Event Count Index Event Count Index LM: 6 20.8 15 8.4 LM AROUSAL: 6 3.4 2 1.1 LM W/O AROUSAL LM W/RESP EVENT LM NON SPECIFIC 38 21.4 15 8.4 HEART RATE DATA DIAGNOSTIC TREATMENT Sleep (bpm): 71 63 REM (bpm): N/A 88 NREM (bpm): 89 88 Tachycardia Count: 0 0 Tachycardia Duration: 0.00 0 Bradycardia Count: 0 0 Bradycardia Duration: 0.00 0 DIAGNOSTIC PORTION TREATMENT PORTION RESPIRATORY DATA Event Count Index Event Count Index AHI: -- 12.4 -- 14.6 RDI: -- 12.4 -- 16 Obstructive Apnea: 1 0.6 0 0.0 Central Apnea: 0 0.0 1 0.6 Mixed Apnea: 0 0.0 0 0.0 Hypopnea: 21 11.8 25 14.0 RERA: 0 0.0 3 1.7 Total Apneas: 1 0.6 1 0.6 RESPIRATORY DATA REM NREM SLEEP REM NREM SLEEP Supine Position: Obstructive Apneas: N/A 1 1 0 0 0 Central Apneas: N/A 0 0 0 1 1 Mixed Apneas: N/A 0 0 0 0 0 Hypopneas: N/A 13 13 7 18 25 RERA N/A 0 0 0 3 3 Total Supine Events: N/A 14 14 7 22 29 Supine AHI: N/A 31.1 31.1 9 19.0 14.6 Supine RDI: N/A 31.1 31.1 8.9 22.0 16.3 REM NREM SLEEP REM NREM SLEEP Non-Supine Position: Obstructive Apneas: N/A 0 0 N/A N/A N/A Central Apneas: N/A 0 0 N/A N/A N/A Mixed Apneas: N/A 0 0 N/A N/A N/A Hypopneas: N/A 8 8 N/A N/A N/A RERA N/A 0 0 N/A N/A N/A Total Supine Events: N/A 8 8 N/A N/A N/A Supine AHI: N/A 6.0 6.0 N/A N/A N/A Supine RDI: N/A 6.0 6.0 N/A N/A N/A OXYGEN DESTAURATION DATA: Event Count Index Event Count Index REM Desaturations: N/A N/A 11 14.0 NREM Desaturations: 21 11.8 15 15.0 SNORE DATA DIAGNOSTIC TREATMENT Snore Time: 3.8 2:04:15 AM Snore TST%: 2 2 Snore Arousal Count: 0 2 Snore Arousal Index: 0.0 1.1 Desaturation Event Summary: Minimum %SpO2 Event Count Mean/Min/Max Duration(sec.) Desaturation Index % Time In Bed > 90 24 25.4 / 12.8 / 60.0 15.9 28.1 86 - 90 41 24.0 / 7.3 / 54.8 11.2 68.2 81 - 85 2 20.5 / 15.8 / 25.3 10.3 3.6 76 - 80 0 N/A 0.0 0.1 71 - 75 0 N/A 0.0 0.0 66 - 70 0 N/A 0.0 0.0 61 - 65 0 N/A 0.0 0.0 56 - 60 0 N/A 0.0 0.0 51 - 55 0 N/A 0.0 0.0 < 50 0 N/A 0.0 0.0 OXYGEN SATURATION DATA DIAGNOSTIC TREATMENT SpO2 Mean Sleep: 89 % 88 % SpO2 Mean REM: N/A % 88 % SpO2 Mean NREM: 89 % 88 % SpO2 Minimum Sleep: 84 % 76 % SpO2 Minimum REM: N/A % 76 % SpO2 Minimum NREM: 84 % 76 % Time Below 90% (TST): 66.1 84.9 Time Below 88% (TST): 23.4 48.1 Total REM NREM Awake <50% 0.0 min. 0.0 min. 0.0 min. 0.0 min. 51 - 60% 0.0 min. 0.0 min. 0.0 min. 0.0 min. 61 - 70% 0.0 min. 0.0 min. 0.0 min. 0.0 min. 71 - 80% 0.3 min. 0.1 min. 0.2 min. 0.0 min. 81 - 90% 231.0 min. 44.1 min. 140.3 min. 46.6 min. 91 - 100% 90.5 min. 2.9 min. 24.6 min. 63.1 min. Average 89 88 88 91 Minimum SpO2 76 76 76 82 Desaturation Event Index 8.1 14.0 13.0 0.0 # Desat. Events below 89% 45 10 35 0 Time(%) with Saturation below 89% 40.7 8.8 25.4 6.5 Time(min.) with Saturation below 89% 131.0 28.3 81.8 20.8 Recording Police Shift Commander Comments: Split -Night: slept in the right, left, and supine positions. Cardiac arrhythmia and PLM's noted. No bruxism noted. Snoring was noted and scored as a 3 on a scale of 1 through 5. (0=no snoring, 5=snoring loud enough to be heard through a closed door or down the [address] way) At 1:05 am, MR. Vaughan has met specific Split-Night criteria during the diagnostic portion of this study. CPAP was initiated at +4 CMH2O and up-titrated to an optimal level of +14 CMH2O, which nearly eliminated all respiratory events and snoring. A Res Med Size medium, was used during titration Mr. Vaughan awoke to use the restroom zero times during the night. Mr. Vaughan stated, I did sleep as well as I do when I am in my own bed. The final report will be interpreted and signed by a sleep physician. The completed physician report will then be placed in the patient medical record. Pt. tolerated treatment well increases were made throughout testing. Final pressure was 14 cm h2o.Test was done on room air.Pt. woke at 4:00 am and requested to end the study. Therapy Event: Therapy (cm H20) 0 6 8 10 12 14 Total Time at Pressure (min.) 152.5 59.9 34.8 32.1 13.5 56.6 TST at Pressure (min.) 106.5 9.0 27.8 32.1 13.5 24.6 # Periods 1 1 1 1 1 1 Sleep Onset (min.) 8.0 47.5 7.1 0.0 0.0 0.0 REM Onset (min.) N/A N/A N/A 23.2 0.0 0.0 Sleep Efficiency % 69 15 79 100 100 43 Wakefulness (%) 30.2 85.0 20.3 0.0 0.0 56.5 Wakefulness (min.) 46.0 50.9 7.1 0.0 0.0 32.0 NREM 1 (%) 3.6 1.7 1.4 0.0 0.0 0.0 NREM 1 (min.) 5.5 1.0 0.5 0.0 0.0 0.0 NREM 2 (%) 66.2 13.3 78.3 72.4 0.0 0.0 NREM 2 (min.) 101.0 8.0 27.3 23.2 0.0 0.0 NREM 3 (%) 0.0 0.0 0.0 0.0 0.0 0.0 NREM 3 (min.) 0.0 0.0 0.0 0.0 0.0 0.0 REM (%) 0.0 0.0 0.0 27.6 100.0 43.5 REM (min.) 0.0 0.0 0.0 8.8 13.5 24.6 # Arousals 33 3 6 5 1 3 Arousal Index 18.6 20.0 13.0 9.4 4.4 7.3 # Snore 119 3 17 9 2 1 Snore Index 67.0 20.0 36.7 16.8 8.9 2.4 AHI 12.4 13.3 21.6 15.0 13.3 7.3 AHI Supine 31.1 13.3 21.6 15.0 13.3 7.3 AHI Non-Supine 6.0 N/A N/A N/A N/A N/A NREM AHI 12.4 13.3 21.6 18.1 N/A N/A REM AHI N/A N/A N/A 6.8 13.3 7.3 RDI 12.4 13.3 28.1 15.0 13.3 7.3 # Obstructive 1 0 0 0 0 0 # Central Ap 0 0 1 0 0 0 # Mixed 0 0 0 0 0 0 # Hypopneas 21 2 9 8 3 3 RERAS 0 0 3 0 0 0 Total Respiratory Events 22 2 13 8 3 3 Time Below SpO2 89.00% (min.) 40.1 0.0 21.5 28.3 8.1 12.2 Mean NREM SpO2 (%) 89 92 87 87 N/A N/A Mean REM SpO2 (%) N/A N/A N/A 87 88 89 Mean Sleep SpO2 (%) 89 92 87 87 88 89 Min NREM SpO2 (%) 84 89 81 76 N/A N/A Min REM SpO2 (%) N/A N/A N/A 76 84 84 Position Supine (min.) 27.0 9.0 27.8 32.1 13.5 24.6 Position Non-supine (min.) 79.5 0.0 0.0 0.0 0.0 0.0 LM Index Sleep 26.5 13.3 6.5 15.0 22.2 2.4 LM Index NREM 26.5 13.3 6.5 7.8 N/A N/A LM Index REM N/A N/A N/A 33.9 22.2 2.4 Mean Heart Rate (bpm) 71 65 63 62 64 62 Min Heart Rate (bpm) 43 54 57 57 55 48
--- NOTE | 2017-03-28 06:15 | POLYSOMNOGRAPH REPORT ---
REFERRING PHYSICIAN: Dr. Karen Pablo. CLINICAL DATA: The patient is a 61-year-old male with a history of asthma and COPD. He recently was found to have coronary artery disease and cardiomyopathy with an ejection fraction of 25%. The patient had a history of sleep apnea about 7 years ago. He never adapted well to CPAP. In light of his significant comorbidities, he is being reevaluated. This was an in-lab split night study. His BMI is elevated at 36.94. SLEEP ARCHITECTURE: During the diagnostic portion of the study, the sleep period time was 144.5 minutes. The total sleep time was 106.5 minutes. The sleep efficiency was moderately reduced to 70%. The sleep latency was 8 minutes. The arousal index was 18.6. During the therapeutic portion of the study, the patient's respiratory events were treated with nasal CPAP up to a final pressure of 14 cm. The sleep period time was 117.5 minutes with a total sleep time of 107.0 minutes. The sleep efficiency was reduced at 54%. The sleep latency was prolonged at 47.5 minutes. The arousal index was 10.1. AROUSAL DATA: During the diagnostic portion of the study, the patient had a total of 33 arousals for an index of 18.6. During the therapeutic portion, he had 18 arousals for an index of 10.1. PERIODIC LIMB MOVEMENTS DATA: During the diagnostic portion of the study, the patient had 10 periodic limb movements for an index of 5.6. There were zero arousals. During the therapeutic portion of the study, he had only 4 PLMs for an index of 2.2. Again, there were zero arousals associated with a limb movement. EKG: The underlying cardiac rhythm was normal sinus. He had frequent PVCs. There were some ventricular couplets. Cardiac rates ranged from 63-89 beats per minute. RESPIRATORY DATA: During the diagnostic portion of the study, the patient had a total of 1 obstructive apnea and 21 hypopneas. The 4% desaturation rule was utilized for scoring hypopneas. The apnea hypopnea index was 12.4. During the treatment portion of the study, the patient's nocturnal events were treated with nasal CPAP, which was titrated to a final pressure of 14 cm. During the treatment portion of the study, he had 1 central apnea and 25 hypopneas. The apnea hypopnea index was 14.6. At the final pressure of 14 cm, the patient had only 3 hypopneas and an apnea hypopnea index of 7.3. However, the sleep time at the final pressure was only 24.6 minutes. OXIMETRY DATA: The patient had an average saturation for the night of 89%. The minimum saturation was 76%. This did occur during the treatment portion of the study. He had a total of 48.1 minutes with saturations less than 88% during the treatment portion. IMPRESSION: 1. Obstructive sleep apnea - mild. 2. Cardiac arrhythmia - premature ventricular contractions. COMMENTS: The patient had mild obstructive sleep apnea with an apnea hypopnea index elevated at 12.4 during the diagnostic portion. However, the patient has numerous comorbidities including cardiomyopathy, coronary artery disease, and asthma. Thus, treatment is advised. He had some difficulty with nasal CPAP. He had a prolonged sleep latency when the CPAP was started. He had a decreased sleep efficiency during the CPAP portion of the night. Thus, remains to be seen how well he will tolerate this. At the final pressure of 14 cm, he did have some improvement in the apnea-hypopnea index down to 7.3. He did have cardiac arrhythmia throughout the night. Following the study, the patient did complain of a dry mouth. He did indicate that he slept as well as he does at home. RECOMMENDATIONS: 1. It is advised that the patient be started on nasal CPAP at 14 cm. 2. It is likely he will need oxygen instilled into the CPAP. It is advised that an overnight pulse oximetry study be done approximately 1 week after he is on nasal CPAP. 3. Clinical correlation will be required to evaluate his response to nasal CPAP. If he does not do well, consideration might be given to a trial of auto BiPAP. 4. A weight reduction program is advised in light of his elevation of body mass index at 36.9. 5. If possible, the patient should avoid sleeping in the supine position. 6. It is advised that the patient be treated with a ResMed full face mask, size medium. Alternatively, he could have mask of choice.
--- NOTE | 2017-03-28 06:23 | POLYSOMNOGRAPH REPORT ---
ADDENDUM I just completed a sleep report on Claudio Vee. I forgot to mention that a copy of this report should go to Dr. Karen Pablo as well as to Bhavana Guallpa PA-C and a copy to myself.
== END | disposition home or self-care (01) ==
LOC: C.NEUR 21:00
PROVIDERS: ATTEND Internal Medicine Pulmonary Disease
DX: G47.33 Obstructive sleep apnea (adult) (pediatric) (principal); I49.3 Ventricular premature depolarization

== ENCOUNTER 2017-07-28 06:33 | Inpatient (IN) | payer OTHER ==
[~2017-07-28] VITALS: Ht 172.7 cm; Wt 102.4 kg
[2017-07-28] VITALS (10 sets, daily range): BP systolic 99–120; BP diastolic 60–70; PULSE 74–111; TEMP 36.5–36.6; O2SAT 94–98; Ht 172.7 cm; Wt 102.4 kg
[~2017-07-28 06:33] MED LIST changes: -ATOR-26 PO; -ATOR10TA82 PO; +ATOR10TA88 PO; -BMX1 PO; -GLIM2TAB PO; -IPRA1AER2; -NTRSLP4 SL; -VNTHFA/IN INH
[2017-07-28 07:07] LABS: HEMATOCRIT 48.5 % (42-52); MEAN CELL VOLUME 91.3 fL (80-100); MEAN CORPUSCULAR HEMOGLOBIN 30.3 pg (25-34); MEAN CORPUSCULAR HGB CONC 33.2 g/dl (32-36); MEAN PLATELET VOLUME 11.2 fL (7.4-10.4); PLATELET COUNT 219 K/uL (130-400); RED BLOOD COUNT 5.31 M/uL (4.7-6.1); WHITE BLOOD COUNT 11.01 K/uL (4.8-10.8)
[2017-07-28] MEDS ORDERED: GLIM2TAB PO (07:23)
[2017-07-28] MEDS ORDERED: VNTHFA/IN INH (07:23)
[2017-07-28] MEDS ORDERED: ATOR-26 PO (07:23)
[2017-07-28] MEDS ORDERED: IPRA1AER2 (07:23)
[2017-07-28 07:26] LABS: BUN/CREATININE RATIO 15.4 (10-20); CALCIUM 8.5 mg/dl (8.5-10.1); POTASSIUM 6.4 mmol/L (3.5-5.1)
[2017-07-28] MEDS ORDERED: FUROSEMIDE 40 MG/4 ML VIAL IV STA (07:27)
--- NOTE | 2017-07-28 07:31 | DIAGNOSTIC IMAGING REPORT ---
CHEST ONE VIEW PORTABLE CLINICAL HISTORY: sob dyspnea COMPARISON STUDY: 02/15/2017 FINDINGS: Permanent bipolar cardiac pacemaker/defibrillator right mild cardia megaly. Fullness of pulmonary vasculature. IMPRESSION: Pulmonary edema The above report was generated using voice recognition software. It may contain grammatical, syntax or spelling errors. Electronically signed by: Néstor Lux M.D. 07/28/2017 7:30 AM Dictated Date/Time: 07/28/2017 7:29 AM
[2017-07-28] MEDS ORDERED: NovoLIN-R INSULIN PER UNIT CHARGE IV STA (07:34)
[2017-07-28 07:39] LABS: BETA-HYDROXYBUTYRATE 1.74 mg/dL (0.2-2.81)
--- NOTE | 2017-07-28 07:51 | EMERGENCY ROOM VISIT NOTE ---
History Report prepared by Kim: Geena Cabezas Under the Supervision of: Dr. Jose Bowser M.D. First contact with patient: 06:46 Chief Complaint: RESPIRATORY DISTRESS Stated Complaint: RESPIRATORY DISTRESS Nursing Triage Summary: Pt was at [facility] show and started to have increased shortness of breath and severe respiratory distress. Pt was 90% on 15L. Pt placed on Cpap. Pt has been having a cough and respiratory problems over the past few days, hx of CHF. Pt had prink sputum for EMS. History of Present Illness The patient is a 61 year old male who presents to the Emergency Room with complaints of constant respiratory distress for the past hour. The patient has a history of CHF. Son states that the patient has been complaining of increased shortness of breath and chest heaviness for the past week. 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 EMS was called and the patient was 90% on room air. He was complaining of 5/10 chest pain. He had a cough with pink sputum. He was placed on C-PAP and had improvement of his symptoms. The patient received 9 of nitro en route to the ED. EMS reports intermittent episodes of V-tach en route. Per daughter, the patient has a malfunctioning pacemaker. 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 Please see Additional Medical History Sheet. Past Medical & Surgical Medical Problems: (1) Acute on chronic systolic (congestive) heart failure (2) Atrial fibrillation with RVR (3) CHF (congestive heart failure) (4) COPD (chronic obstructive pulmonary disease) (5) Diabetes (6) Elevated troponin I level (7) Holdrege' lung (8) Pneumonia (9) Presence of combination internal cardiac defibrillator (ICD) and pacemaker Family History Patient reports no known family medical history. Social History Smoking Status: Former Smoker Drug Use: none Marital Status: Housing Status: lives with significant other Occupation Status: employed Current/Historical Medications Scheduled Aspirin (Aspirin 81), 81 MG PO QAM Atorvastatin (Lipitor), 80 MG PO DAILY Carvedilol (Coreg), 25 MG PO BID Cholecalciferol (Vitamin D3), 1,000 UNITS PO BID Coenzyme Q10 (Ubidecarenone) (Co Q10), 50 MG PO QAM Cyanocobalamin (Vitamin B-12), 500 MCG PO QAM Furosemide (Furosemide), 60 MG PO UD Glimepiride (Amaryl), 2 MG PO DAILY Lisinopril (Zestril), 5 MG PO QAM [place]-3 Fatty Acids (Fish Oil), 1 CAP PO QAM Scheduled PRN Acetaminophen/Codeine (Tylenol W/Codeine #3), 1 TAB PO Q6 PRN for Pain Albuterol Hfa (Ventolin Hfa), 2-4 PUFFS INH Q6H PRN for Wheezing Miscellaneous Medications Ipratropium-Albuterol (Combivent Respimat) Allergies Coded Allergies: Budesonide (Verified Allergy, Unknown, TACHYCARDIA, SOB, 07/28/17) Carbamazepine (Verified Allergy, Unknown, TACHYCARDIA, PANIC ATTACK, ) Cyclobenzaprine (Verified Allergy, Unknown, UNK, 07/28/17) Doxycycline (Verified Allergy, Unknown, ABD PAIN, 07/28/17) Fluticasone (Verified Allergy, Unknown, UNK, 07/28/17) Formoterol (Verified Allergy, Unknown, TACHYCARDIA, SOB, 07/28/17) Salmeterol (Verified Allergy, Unknown, ANAPHYLAXIS, 07/28/17) Sodium Propionate (Verified Allergy, Unknown, SHORTNESS OF BREATH, 07/28/17) Digoxin (Verified Adverse Reaction, Unknown, BACK AND STOMACH PAIN, 07/28/17 ) Metformin (Verified Adverse Reaction, Unknown, MUSCLE ACHES IN BVACK AND KIDNEYS, 07/28/17) Physical Exam Vital Signs Date Time Temp Pulse Resp B/P (MAP) Pulse Ox O2 Delivery O2 Flow Rate FiO2 07/28/17 08:30 81 121/49 97 07/28/17 08:20 84 125/79 98 07/28/17 08:10 101/69 07/28/17 08:00 85 103/65 97 07/28/17 07:58 84 98 100 07/28/17 07:56 93/66 07/28/17 07:50 94/66 07/28/17 07:45 86 99 07/28/17 07:40 115/74 07/28/17 07:30 92 93/72 98 07/28/17 07:18 94 106/66 98 Room Air 07/28/17 06:53 37.5 105 141/96 100 07/28/17 06:53 BiPAP 07/28/17 06:52 BiPAP 07/28/17 06:48 111 98 07/28/17 06:43 113 07/28/17 06:40 168 07/28/17 06:34 94 CPAP 07/28/17 06:34 133 27 134/95 94 CPAP Physical Exam GENERAL: Patient awake, alert, oriented x 3. Patient follows commands. Patient does not appear toxic. Patient is adequately hydrated and well- nourished. Patient has a mask with C-PAP on at the present time. SKIN: No erythema, pallor, cyanosis or rash HEENT: Normal head, pupils equal, reactive to light and accommodation. Ears normal. Oral cavity and posterior pharynx appear normal. Neck: Without adenopathy, no neck vein distention. LUNGS: Tachypneic. Bilateral rales. No wheezes, no rhonchi. HEART: Tachycardic. No murmurs. No gallops. No rubs CHEST: Patient has a pacemaker/defibrillator in left upper chest. ABDOMEN: Obese, soft, nontender. No masses, no rebound, no hepatomegaly or splenomegaly. EXTREMITIES: No signs of trauma. No significant pedal or pretibial edema. No calf or thigh tenderness. NEUROLOGIC: Cranial nerves II-XII within normal limits. No gross motor sensory function deficits. Medical Decision & Procedures ER Provider Diagnostic Interpretation: Radiology results as stated below per my review and radiologist interpretation: CHEST ONE VIEW PORTABLE CLINICAL HISTORY: sob dyspnea COMPARISON STUDY: 02/15/2017 FINDINGS: Permanent bipolar cardiac pacemaker/defibrillator right mild cardia megaly. Fullness of pulmonary vasculature. IMPRESSION: Pulmonary edema The above report was generated using voice recognition software. It may contain grammatical, syntax or spelling errors. Electronically signed by: Néstor Lux M.D. 07/28/2017 7:30 AM Dictated Date/Time: 07/28/2017 7:29 AM Laboratory Results 07/28/17 06:50 Test 07/28/17 06:50 07/28/17 06:53 Red Blood Count 5.31 M/uL (4.7-6.1) Mean Corpuscular Volume 91.3 fL (80-100) Mean Corpuscular Hemoglobin 30.3 pg (25-34) Mean Corpuscular Hemoglobin Concent 33.2 g/dl (32-36) RDW Standard Deviation 45.9 fL (36.4-46.3) RDW Coefficient of Variation 13.7 % (11.5-14.5) Mean Platelet Volume 11.2 fL (7.4-10.4) Est Creatinine Clear Calc Drug Dose 44.4 ml/min Estimated Average Glucose 148 mg/dl Hemoglobin A1c 6.8 % (4.5-5.6) Troponin I 0.028 ng/ml (0-0.045) Beta-Hydroxybutyric Acid 1.74 mg/dL (0.2-2.81) Bedside Lactic Acid Venous 2.27 mmol/L (0.90-1.70) Laboratory results as stated above per my review. Medications Administered Medications (Trade) Dose Ordered Sig/Pearl Route Start Time Stop Time Status Last Admin Dose Admin Furosemide (Lasix Inj) 40 mg NOW STAT IV 07/28/17 07:27 07/28/17 07:34 DC 07/28/17 07:56 40 MG Insulin Human Regular (novoLIN-R U-100 PER UNIT) 5 units NOW STAT IV 07/28/17 07:34 07/28/17 07:35 DC 07/28/17 08:05 5 UNITS Nitroglycerin (Nitroglycerin 2% Oint) 1 inch ONE ONCE EXT 07/28/17 08:30 07/28/17 08:31 DC 07/28/17 08:35 1 INCH ECG Indication: SOB/dyspnea Rate (beats per minute): 121 Rhythm: sinus tachycardia Findings: 1st degree AV block, PVC, no acute ischemic change ED Course 0635: Past medical records reviewed. The patient was evaluated in room B1. A complete history and physical examination was performed. 0726: I reevaluated the patient and updated him on the results. 0727: Lasix 40 mg IV 0734: Insulin Human Regular 5 units IV 0752: I reassessed the patient at this time. He is feeling better and resting more comfortably on BiPAP. I discussed the results and treatment plan with the patient. I answered all pertaining questions that he had. He expressed understanding and verbalized agreement. 0753: I spoke with Dr. Conrad. We discussed the patient's results and treatment plan. The patient will be evaluated by the [facility] for further management. 0754: Nitroglycerin 2 inch EXT 0820: I reassessed the patient and his blood pressure has improved. He is doing well. 0941: Upon reevaluation the patient is looking much better and his blood pressure has continued to improve. He is resting comfortably. Medical Decision Differential diagnoses includes CHF, arrhythmia, metabolic disorder, pneumonia, hyperkalemia. Multiple labs, EKG and imaging were obtained. Please see above. The patient was in extremis on arrival. The patient arrived here via ambulance after having CPAP applied. He was extremely short of breath and tachycardic. Shortly after arrival his rhythm changed from a very rapid rhythm to a less rapid sinus tachycardia. The patient was switched to BiPAP. Chest x-ray revealed pulmonary edema. The patient was given Lasix and insulin for his failure, hyperkalemia and diabetes. The patient had significant improvement while here in the ED. I discussed care with the patient, son and hospitalist. Medication Reconcilliation Current Medication List: was personally reviewed by me Blood Pressure Screening Patient's blood pressure: Low blood pressure Consults Time Called: 0751 Consulting Physician: Dr. Conrad Returned Call: [phone] Conrad. We discussed the patient's results and treatment plan. The patient will be evaluated by the [facility] for further management. Impression Primary Impression: Pulmonary edema Additional Impressions: Hyperkalemia Diabetes mellitus out of control Critical Care I have personally spent greater than 35 minutes of critical care time in the direct management of this patient. This includes bedside care, interpretation of diagnostic studies, and testing, discussion with consultants, patient, and family members, and other required patient management activities. This 35 minutes is in excess of all separately billable procedures. Scribe Attestation The scribe's documentation has been prepared under my direction and personally reviewed by me in its entirety. I confirm that the note above accurately reflects all work, treatment, procedures, and medical decision making performed by me. Departure Information Dispostion Being Evaluated By Hospitalist Karen Lofton M.D. (PCP) Patient Instructions Asthma - [facility], COPD - [facility], Croup - [facility], [facility] Problem Qualifiers Primary Impression: Pulmonary edema Chronicity: acute Qualified Codes: J81.0 - Acute pulmonary edema Additional Impressions:
[2017-07-28] MEDS ORDERED: NITROGLYCERIN OINT 2% 1GM PACKET ONE ×2 (07:54→08:32)
[2017-07-28] MEDS ORDERED: NITROGLYCERIN OINT 2% 1GM PACKET EXT SCH (08:00)
[2017-07-28] MEDS ORDERED: NITROGLYCERIN OINT 2% 1GM PACKET EXT ONE (08:30)
[2017-07-28] MEDS ORDERED: MoRPHine SULFATE 2 MG/ML CARP IV PRN (08:30)
[2017-07-28] MEDS ORDERED: ONDANSETRON INJ 2 MG/ML 2 ML VIAL IV PRN (08:30)
[2017-07-28] MEDS ORDERED: NITROGLYCERIN 0.4 MG SL PER TAB CHARGE SL PRN (08:30)
[2017-07-28] MEDS ORDERED: POLYETHYLENE (MIRALAX) 17 GM PACK PO PRN (08:30)
[2017-07-28] MEDS ORDERED: METOPROLOL TARTRATE 1 MG/ML VIAL IV PRN (08:45)
[2017-07-28] MEDS ORDERED: PHARMACY GLYCEMIC MGMT CONSULT SCH (08:48)
[2017-07-28] MEDS ORDERED: LEVALBUTEROL/IPRATROPIUM NEB INH PRN (09:15)
--- NOTE | 2017-07-28 09:16 | History and Physical ---
History & Physical Date & Time of Service: Jul 28, 2017 at 08:48 Chief Complaint: Respiratory Distress Primary Care Physician: Karen Pablo M.D. History of Present Illness Source: patient, family (son at bedside), clinic records, hospital records This is a 61 y/o male with a history of combined systolic and diastolic congestive heart failure, paroxysmal a-fib, HTN, HLD, CAD, s/p pacemaker, COPD, DM II, and CKD stage III who presented to the ED on 07/28 with acute hypoxic respiratory failure. The patient states that he has been experiencing dyspnea and chest heaviness for the last week that has been getting progressively worse. He has been taking his home Combivent and nebulizers at home with no relief. This morning the patient became more acutely dyspneic with associated chills, sweats, and increased chest "soreness". The patient had also noted a productive cough this morning with brown sputum. The patient was placed on CPAP and given 9 doses of nitro from EMS en route to [facility]. The patient denies fevers, palpitations, claudication, wheezing, nausea, vomiting, abdominal pain, dysuria, hematuria, urinary retention, paralysis, weakness, numbness and tingling. Past Medical/Surgical History Medical Problems: (1) CHF (congestive heart failure) Status: Chronic (2) COPD (chronic obstructive pulmonary disease) Status: Chronic (3) Diabetes Status: Chronic (4) [place]' lung Status: Resolved (5) Pneumonia Status: Resolved (6) Presence of combination internal cardiac defibrillator (ICD) and pacemaker Status: Chronic Family History Diabetes mellitus Heart disease Hypertension Social History Smoking Status: Former Smoker (quit 10 years ago) Smokeless Tobacco Use: No Alcohol Use: none (h/o heavy alcohol use, quit 10 years ago) Drug Use: none (h/o cocaine use) Marital Status: Housing status: lives with family Occupational Status: employed Multi-Drug Resistant Organisms History of MDRO: No Allergies Coded Allergies: Budesonide (Verified Allergy, Unknown, TACHYCARDIA, SOB, 07/28/17) Carbamazepine (Verified Allergy, Unknown, TACHYCARDIA, PANIC ATTACK, ) Cyclobenzaprine (Verified Allergy, Unknown, UNK, 07/28/17) Doxycycline (Verified Allergy, Unknown, ABD PAIN, 07/28/17) Fluticasone (Verified Allergy, Unknown, UNK, 07/28/17) Formoterol (Verified Allergy, Unknown, TACHYCARDIA, SOB, 07/28/17) Salmeterol (Verified Allergy, Unknown, ANAPHYLAXIS, 07/28/17) Sodium Propionate (Verified Allergy, Unknown, SHORTNESS OF BREATH, 07/28/17) Digoxin (Verified Adverse Reaction, Unknown, BACK AND STOMACH PAIN, 07/28/17 ) Metformin (Verified Adverse Reaction, Unknown, MUSCLE ACHES IN BVACK AND KIDNEYS, 07/28/17) Home Medications Scheduled Aspirin (Aspirin 81), 81 MG PO QAM Atorvastatin (Lipitor), 80 MG PO DAILY Carvedilol (Coreg), 25 MG PO BID Cholecalciferol (Vitamin D3), 1,000 UNITS PO BID Coenzyme Q10 (Ubidecarenone) (Co Q10), 50 MG PO QAM Cyanocobalamin (Vitamin B-12), 500 MCG PO QAM Furosemide (Furosemide), 60 MG PO UD Glimepiride (Amaryl), 2 MG PO DAILY Lisinopril (Zestril), 5 MG PO QAM [place]-3 Fatty Acids (Fish Oil), 1 CAP PO QAM Scheduled PRN Acetaminophen/Codeine (Tylenol W/Codeine #3), 1 TAB PO Q6 PRN for Pain Albuterol Hfa (Ventolin Hfa), 2-4 PUFFS INH Q6H PRN for Wheezing Miscellaneous Medications Ipratropium-Albuterol (Combivent Respimat) Review of Systems Constitutional: + chills, + sweats, No fever Eyes: No worsening of vision, No eye pain, No diplopia ENT: No hearing loss, No sore throat, No trouble swallowing Respiratory: + cough, + sputum, + shortness of breath, No wheezing Cardiovascular: + chest pain, + PND, No orthopnea, No edema, No palpitations Abdomen: No pain, No nausea, No vomiting Musculoskeletal: No joint pain, No muscle pain, No calf pain Genitourinary - Male: No hematuria, No dysuria, No urinary retention Neurologic: No paralysis, No weakness, No numbness/tingling Integumentary: No rash, No itch, No color change Physical Exam Vital Signs Date Time Temp Pulse Resp B/P (MAP) Pulse Ox O2 Delivery O2 Flow Rate FiO2 07/28/17 08:20 84 125/79 98 9/9/17 08:10 101/69 07/28/17 08:00 85 103/65 97 07/28/17 07:58 84 98 100 07/28/17 07:56 93/66 07/28/17 07:50 94/66 07/28/17 07:45 86 99 07/28/17 07:40 115/74 07/28/17 07:30 92 93/72 98 07/28/17 07:18 94 106/66 98 Room Air 07/28/17 06:53 37.5 105 141/96 100 07/28/17 06:53 BiPAP 07/28/17 06:52 BiPAP 07/28/17 06:48 111 98 07/28/17 06:43 113 07/28/17 06:40 168 07/28/17 06:34 94 CPAP 07/28/17 06:34 133 27 134/95 94 CPAP General appearance: +Obese. Well-developed, well-nourished, no apparent distress Head: Normocephalic, atraumatic Eyes: Normal inspection, PERRL, EOMI ENT: +Pt on BiPAP. Normal ENT inspection, hearing grossly normal Neck: Supple, no JVD, trachea midline Respiratory/Chest: +Crackles and wheezing throughout. Normal breath sounds, no respiratory distress Cardiovascular: Regular rate & rhythm, no gallop, no murmur Abdomen/GI: Normal bowel sounds, non-tender, soft Extremities/Musculoskeletal: Normal inspection, no calf tenderness, no pedal edema Neurological/Psych: Alert, normal mood/affect, oriented x 3 Skin: Normal color, warm/dry, no rash Diagnostics Laboratory Results Results Past 24 Hours Test 07/28/17 06:50 07/28/17 06:53 Range/Units White Blood Count 11.01 4.8-10.8 K/uL Red Blood Count 5.31 4.7-6.1 M/uL Hemoglobin 16.1 14.0-18.0 g/dL Hematocrit 48.5 42-52 % Mean Corpuscular Volume 91.3 80-100 fL Mean Corpuscular Hemoglobin 30.3 25-34 pg Mean Corpuscular Hemoglobin Concent 33.2 32-36 g/dl RDW Standard Deviation 45.9 36.4-46.3 fL RDW Coefficient of Variation 13.7 11.5-14.5 % Platelet Count 219 130-400 K/uL Mean Platelet Volume 11.2 7.4-10.4 fL Sodium Level 136 136-145 mmol/L Potassium Level 6.4 3.5-5.1 mmol/L Chloride Level 106 98-107 mmol/L Carbon Dioxide Level 24 21-32 mmol/L Anion Gap 6.0 3-11 mmol/L Blood Urea Nitrogen 31 7-18 mg/dl Creatinine 2.00 0.60-1.40 mg/dl Est Creatinine Clear Calc Drug Dose 44.4 ml/min Estimated GFR () 40.0 Estimated GFR (Non- 34.5 BUN/Creatinine Ratio 15.4 10-20 Random Glucose 414 70-99 mg/dl Calcium Level 8.5 8.5-10.1 mg/dl Troponin I 0.028 0-0.045 ng/ml Beta-Hydroxybutyric Acid 1.74 0.2-2.81 mg/dL Bedside Lactic Acid Venous 2.27 0.90-1.70 mmol/L Diagnostic Radiology Reviewed the following studies and agree with interpretation as follows: Patient Name: TAMIE VAUGHAN Unit Number: [id number] Dictated: 07/28/17728 Transcribed: 07/28/17728 MS Printed Date/Time: [~ rep prt dt]/[~ rep prt tm] [~ rep ct labl] - [~ rep ct ivnm] [facility] [place] [address] Dictated: 07/28/17728 Transcribed: 07/28/17728 MS Printed Date/Time: [~ rep prt dt]/[~ rep prt tm] [~ rep ct labl] - [~ rep ct ivnm] Patient: TAMIE VAUGHAN Address1: [address] [place] [address] Rec: [id number] Address2: Acct ID: [id number] [facility] Zip: [place] [address] Date: 1955 Sex: M Room/Bed: Ref Phy: Karen Pablo M.D. SC: ANTON Att Phy: Report #: [id number] Mary Kate Phy: Karen Pablo M.D. Test: CXR1P Admit Phy: Silverware Etcher: CLARICE Interpreting Phy: Néstor Lux M.D. Diagnosis: RESPIRATORY DISTRESS Ordering Phy: Jose Bowser M.D. Service Date: 07/28/17 Admit Date: 07/28/17 MNE: [id number] CONF: DICTATED BY: Néstor Lux M.D.]] CC: Karen Pablo M.D. Ziff, Theodore, M.D. Endcc: [~ rep ct add3]] CHEST ONE VIEW PORTABLE CLINICAL HISTORY: sob dyspnea COMPARISON STUDY: 02/15/2017 FINDINGS: Permanent bipolar cardiac pacemaker/defibrillator right mild cardia megaly. Fullness of pulmonary vasculature. IMPRESSION: Pulmonary edema The above report was generated using voice recognition software. It may contain grammatical, syntax or spelling errors. Electronically signed by: Néstor Lux M.D. 07/28/2017 7:30 AM Dictated Date/Time: 07/28/2017 7:29 AM The status of this report is Signed. Draft = Not yet reviewed or approved by Radiologist. Signed = Reviewed and approved by Radiologist. <AttendingPhy></AttendingPhy> <FamilyPhy>Karen Pablo M.D.</FamilyPhy> < PrimaryPhy>Karen Pablo M.D.</PrimaryPhy> <UnitNumber>[id number]</UnitNumber> < VisitNumber>[id number]</VisitNumber> <PatientName>TAMIE VAUGHAN</PatientName > <DateOfBirth>1955</DateOfBirth> <Location>C.EDB</Location> <ServiceDate> 07/28/17</ServiceDate> <MNE>ESINDI</MNE> <OrderingPhy>Jose Bowser M.D.</ OrderingPhy> <OrderingPhyMNE>f rep ord dr ross</OrderingPhyMNE> <DictatingPhyMNE> f rep dict dr ross</DictatingPhyMNE> <CCListMNE>f rep ct mne</CCListMNE> < AdmittingPhyMNE>f pt admit dr ross</AdmittingPhyMNE> <AttendingPhyMNE>f pt attend dr ross</AttendingPhyMNE> <ConsultingPhyMNE>f pt consult dr ross</ConsultingPhyMNE> <FamilyPhyMNE>f pt fam dr ross</FamilyPhyMNE> <OtherPhyMNE>f pt other dr ross</OtherPhyMNE> < PrimaryPhyMNE>f pt prim care dr ross</PrimaryPhyMNE> <ReferringPhyMNE>f pt referring dr ross</ReferringPhyMNE> EKG Reviewed EKG and agree with interpretation as follows: 133 bpm a-fib with RVR and PVCs, LBBB (pt last EKG in November 2016 with incomplete LBBB) Impression Assessment and Plan 61 y/o male with a history of combined systolic and diastolic congestive heart failure, paroxysmal a-fib, HTN, HLD, CAD, s/p pacemaker, COPD, DM II, and CKD stage III who presented to the ED on 07/28 with acute hypoxic respiratory failure. Pt arrived to ED tachycardic with HR 133 as well as tachypneic with RR of 27. O2 saturation 94% on CPAP. HR went as high as 168 and did return to a normal rate without being given any rate-control medications. Pt was placed on BiPAP. CXR shows pulmonary edema. EKG showed a-fib with RVR and LBBB, although the LBBB appears to be rate related and on monitor, pt appears to have returned to his previous incomplete LBBB. Troponin negative. Potassium 6.4. Creatinine elevated above baseline at 2.00. Glucose 414, beta hydroxybutyric acid WNL. POC lactic acid elevated at 2.27. Acute hypoxic respiratory failure secondary to acute on chronic systolic/ diastolic CHF, s/p pacemaker placement -Admit to telemetry -O2 by protocol, can likely come off BiPAP soon -Xopenex/Atrovent nebs q6h prn SOB/wheezing. Hold home Combivent -Lasix 40 mg IV qd. 1 dose given in ED -Daily weights, strict I's & O's -Continue Coreg 25 mg PO BID -Hold lisinopril due to ART -Pt's pacemaker placed in 2008. He states he is due for a "tune up" at the end of the month for a new battery and wires -Last echo November 2016 showed LVEF 25%, markedly dilated LV with severe global hypokinesis, and grade I diastolic dysfunction -Repeat echo ordered A-fib with RVR, h/o paroxysmal a-fib--stable, currently RRR -Cardiology consulted, appreciate recs. Pt follows with Dr. Jose -Lopressor 5 mg IV q4h prn HR > 120 -Check magnesium now Hyperglycemia, DM II--last HgbA1c was 7.5 in 2014 -BSG 414 on arrival, given Novolin R 5 units IV x 1 in ED -Hold glimepiride -Insulin drip due to sugars and potassium, pharmacy consulted for glycemic control -Check BSGs q ac and qhs -Recheck HgbA1c Hyperkalemia -Insulin drip and Lasix as above, continue to monitor -Repeat PRP at 1300 ART on CKD stage III--baseline creatinine around 1.6 -Creatinine 2.00 on admission -Hold lisinopril as above CAD, HTN, HLD--stable -Continue ASA 81 mg PO qd, Coreg, atorvastatin 80 mg PO qd COPD -Nebulizers as above, Combivent held -Pt was supposed to be on 2L oxygen prn at home but did not start until morning [employer]ING DVT prophylaxis -Heparin 5000 units SC q8h Code Status -Level I, FULL RESUSCITATION STATUS Level of Care Telemetry Resuscitation Status FULL RESUSCITATION VTE Prophylaxis VTE Risk Assessment Done? Y/N: Yes Risk Level: High Given or contraindicated: Unfractionated heparin SQ
[2017-07-28] MEDS ORDERED: LEVALBUTEROL 1.25MG/0.5ML NEB INH PRN (10:00)
[2017-07-28] MEDS ORDERED: INSULIN PROTOCOL GOAL RANGE ONE (10:00)
[2017-07-28] MEDS ORDERED: MODERATE STRESS LEVEL ONE (10:00)
[2017-07-28] MEDS ORDERED: IPRATROPIUM BROMIDE NEB SOLN 0.02% 2.5 ML VIAL INH PRN (10:00)
[2017-07-28] MEDS ORDERED: INSULIN IV INFUSION PROTOCOL SCH (10:02)
[2017-07-28] MEDS ORDERED: SODIUM POLYST. SULF SUSP 15G/60ML PO STA (10:28)
[2017-07-28 10:58] LABS: ESTIMATED AVERAGE GLUCOSE 148 mg/dl; HA1C FLAG Normal (Normal)
[2017-07-28] MEDS ORDERED: ATORVASTATIN 40 MG TAB PO SCH (11:00)
[2017-07-28 11:11] LABS: INR 1.1 (0.9-1.1); PARTIAL THROMBOPLASTIN RATIO 0.9; PROTHROMBIN TIME (PATIENT) 11.3 SECONDS (9.0-12.0)
[2017-07-28] MEDS: CARVEDILOL 25 MG TAB PO SCH ×2 (11:26→20:33)
[2017-07-28] MEDS: CHOLECALCIFEROL 1000 INTER.UNIT TAB PO SCH ×2 (11:27→20:33)
[2017-07-28] MEDS: ASPIRIN 81 MG ECTAB PO SCH (11:27)
[2017-07-28] MEDS: CYANOCOBALAMIN 500 MCG TAB (VIT B-12) PO SCH (11:27)
--- NOTE | 2017-07-28 11:35 | Cardiology Consultation ---
Cardiology Consultation Date of Consultation: Jul 28, 2017. Requesting Physician: Dr. López Reason for Consultation: Chest discomfort, congestive heart failure Pt evaluation today including: conversation w/ patient, physical exam, lab review, review of studies, review of inpatient medication list, conversation w/ attending History of Present Illness This is a 61-year-old gentleman who has a history of a nonischemic cardiomyopathy which by records states back to 1980, he also has a history of alcohol and cocaine abuse which likely contributed to that cardiomyopathy. He also has COPD as well as paroxysmal atrial fibrillation and he also has more recently diagnosed Coronary artery disease, that was identified on catheterization 03/16/2017. The catheterization was done here I believe he was referred for discussion of bypass surgery, and the patient is very vague about that but his cardiac care is otherwise at [facility] and I don't have those records. He tells me he had stents placed, he tells me they were done here but he did not have stent placement here that I can see so they may have been done at [facility]. In addition he has a dual-chamber ICD in place, he tells me that that is approaching replacement time and it sounds as though they might be upgrading it to a biventricular device at some point. He has been having symptoms of his "heart hurting" for the last week or so, he tells me he does not have nitroglycerin and usually he stops and rests for the discomfort to go away. He also is having a lot of shortness of breath. He tells me he has been losing weight (20 pounds in a month) and has not noticed any increase in weight recently or any peripheral edema. He therefore presented to the emergency room today where he was found to be in congestive heart failure. At the time of evaluation he is on BiPAP and feeling better but is still somewhat short of breath. Past Medical/Surgical History (1) Presence of combination internal cardiac defibrillator (ICD) and pacemaker (2) Diabetes (3) CHF (congestive heart failure) (4) COPD (chronic obstructive pulmonary disease) Family History Diabetes mellitus Heart disease Hypertension Social History Smoking Status: Former Smoker History of Alcohol Use: No Review of Systems Constitutional: No fever, No weight loss, No weakness Respiratory: + see HPI, + dyspnea on exertion, + dyspnea at rest Cardiac: + chest pain Abdomen: No pain, No nausea, No vomiting, No diarrhea, No GI bleeding Male : No urinary frequency, No nocturia more than once/night, No slowing stream, No sexual dysfunction Neurologic: No paralysis, No weakness, No numbness/tingling, No balance problems Heme: No abnormal bleeding/bruising, No clotting problems Endo: No fatigue Skin: No problem reported All Other Systems: Reviewed and Negative Allergies Coded Allergies: Budesonide (Verified Allergy, Unknown, TACHYCARDIA, SOB, 07/28/17) Carbamazepine (Verified Allergy, Unknown, TACHYCARDIA, PANIC ATTACK, ) Cyclobenzaprine (Verified Allergy, Unknown, UNK, 07/28/17) Doxycycline (Verified Allergy, Unknown, ABD PAIN, 07/28/17) Fluticasone (Verified Allergy, Unknown, UNK, 07/28/17) Formoterol (Verified Allergy, Unknown, TACHYCARDIA, SOB, 07/28/17) Salmeterol (Verified Allergy, Unknown, ANAPHYLAXIS, 07/28/17) Sodium Propionate (Verified Allergy, Unknown, SHORTNESS OF BREATH, 07/28/17) Digoxin (Verified Adverse Reaction, Unknown, BACK AND STOMACH PAIN, 07/28/17 ) Metformin (Verified Adverse Reaction, Unknown, MUSCLE ACHES IN BVACK AND KIDNEYS, 07/28/17) Medications Current Inpatient Medications Medications (Trade) Dose Ordered Sig/Pearl Route Start Time Stop Time Status Last Admin Dose Admin Heparin Sodium (Porcine) (Heparin Sq 5000 Unit/0.5ml) 5,000 unit Q8 SQ 07/28/17 14:00 08/27/17 13:59 UNV Acetaminophen (Tylenol Tab) 650 mg Q4H PRN PO 07/28/17 08:30 08/27/17 08:29 Ondansetron HCl (Zofran Inj) 4 mg Q6H PRN IV 07/28/17 08:30 08/27/17 08:29 Nitroglycerin (Nitrostat Tab) 0.4 mg UD PRN SL 07/28/17 08:30 08/27/17 08:29 Morphine Sulfate (MoRPHine SULFATE INJ) 2 mg Q30M PRN IV 07/28/17 08:30 08/11/17 08:29 Polyethylene (Miralax Powder Packet) 17 gm DAILY PRN PO 07/28/17 08:30 08/27/17 08:29 Miscellaneous Information (Consult Glycemic Management Pharmacy) 1 ea UD N/A 07/28/17 08:48 08/27/17 08:47 Aspirin (Ecotrin Tab) 81 mg QAM PO 07/28/17 11:00 08/27/17 10:59 Atorvastatin Calcium (Lipitor Tab) 80 mg DAILY PO 07/28/17 11:00 08/27/17 10:59 Carvedilol (Coreg Tab) 25 mg BID PO 07/28/17 11:00 08/27/17 10:59 Cholecalciferol (Vitamin D Tab) 1,000 inter.unit BID PO 07/28/17 11:00 08/27/17 10:59 Cyanocobalamin (Vitamin B-12 Tab) 500 mcg QAM PO 07/28/17 11:00 08/27/17 10:59 Metoprolol Tartrate (Lopressor Iv) 5 mg Q4H PRN IV 07/28/17 08:45 08/27/17 08:44 Ipratropium [place] (Atrovent 0.02% 0.5MG/2.5ML Neb) 0.5 mg Q6H PRN INH 07/28/17 10:00 08/27/17 09:59 Levalbuterol (Xopenex 1.25MG/ 0.5ML Neb) 1.25 mg Q6H PRN INH 07/28/17 10:00 08/27/17 09:59 Furosemide 40 mg/ Syringe 4 ml @ 4 mls/min TODAY@1500 ONCE IV 07/28/17 15:00 07/28/17 15:01 Furosemide (Lasix Tab) 60 mg QAM PO 07/29/17 09:00 08/28/17 08:59 Insulin Aspart (novoLOG ASPART) SLIDING SCALE ACHS SC 07/28/17 11:30 08/27/17 11:29 Physical Exam Vital Signs Past 12 Hours Date Time Temp Pulse Resp B/P (MAP) Pulse Ox O2 Delivery O2 Flow Rate FiO2 07/28/17 10:38 77 28 101/70 95 BiPAP 50 07/28/17 10:35 74 97 50 07/28/17 10:00 85 97/72 99 07/28/17 09:51 94/69 07/28/17 09:41 97/57 07/28/17 09:31 111/60 07/28/17 09:30 68 97 07/28/17 09:00 79 116/73 98 07/28/17 08:58 73 07/28/17 08:50 116/76 07/28/17 08:41 110/72 07/28/17 08:30 81 121/49 97 07/28/17 08:20 84 125/79 98 07/28/17 08:10 101/69 07/28/17 08:00 85 103/65 97 07/28/17 07:58 84 98 100 07/28/17 07:56 93/66 07/28/17 07:50 94/66 07/28/17 07:45 86 99 07/28/17 07:40 115/74 07/28/17 07:30 92 93/72 98 07/28/17 07:18 94 106/66 98 Room Air 07/28/17 06:53 37.5 105 141/96 100 07/28/17 06:53 BiPAP 07/28/17 06:52 BiPAP 07/28/17 06:48 111 98 07/28/17 06:43 113 07/28/17 06:40 168 07/28/17 06:34 94 CPAP 07/28/17 06:34 133 27 134/95 94 CPAP Constitutional: General Apperance: overweight Level of Distress: moderate distress Psychiatric: Mental Status: active & alert Head: normocephalic Eyes: EOM: EOMI ENMT: normal ENT inspection, hearing grossly normal Neck: supple, no masses Lungs: Respiratory effort: dyspneic, tachypneic Auscultation: no wheezing, rales/crackles on the left, rales/crackles on the right Cardiovascular: Heart Auscultation: RRR, no murmurs, no rubs, no gallops Peripheral Pulses: Bruits: none appreciated Abdomen: Bowel Sounds: normal Inspection & Palpation: soft, no tenderness, guarding & rebound, no masses Musculoskeletal: normal strength (5/5 throughout) Extremities: no edema Neurologic: Cranial Nerves: grossly intact Sensation: grossly intact Data Laboratory Results: Last 24 Hours Test 07/28/17 06:50 07/28/17 06:53 07/28/17 09:15 07/28/17 09:23 White Blood Count 11.01 K/uL Red Blood Count 5.31 M/uL Hemoglobin 16.1 g/dL Hematocrit 48.5 % Mean Corpuscular Volume 91.3 fL Mean Corpuscular Hemoglobin 30.3 pg Mean Corpuscular Hemoglobin Concent 33.2 g/dl RDW Standard Deviation 45.9 fL RDW Coefficient of Variation 13.7 % Platelet Count 219 K/uL Mean Platelet Volume 11.2 fL Sodium Level 136 mmol/L Potassium Level 6.4 mmol/L Chloride Level 106 mmol/L Carbon Dioxide Level 24 mmol/L Anion Gap 6.0 mmol/L Blood Urea Nitrogen 31 mg/dl Creatinine 2.00 mg/dl Est Creatinine Clear Calc Drug Dose 44.4 ml/min Estimated GFR () 40.0 Estimated GFR (Non- 34.5 BUN/Creatinine Ratio 15.4 Random Glucose 414 mg/dl Estimated Average Glucose 148 mg/dl Hemoglobin A1c 6.8 % Calcium Level 8.5 mg/dl Troponin I 0.028 ng/ml Beta-Hydroxybutyric Acid 1.74 mg/dL Bedside Lactic Acid Venous 2.27 mmol/L Bedside Glucose 171 mg/dl Magnesium Level 2.5 mg/dl Test 07/28/17 10:34 Prothrombin Time 11.3 SECONDS Prothromb Time International Ratio 1.1 Activated Partial Thromboplast Time 23.3 SECONDS Partial Thromboplastin Ratio 0.9 Imaging: Chest x-ray shows congestive heart failure and cardiomegaly EKG: Sinus tachycardia with first-degree AV block and left bundle branch block Telemetry reviewed: Sinus tachycardia with first-degree AV block, rate gradually improving with pulmonary status Assessment & Plan #1. Congestive heart failure: He presents now with an exacerbation of CHF, the cause is not clear. He is complaining of chest discomfort however his initial troponin is negative. It does not appear to be any acute coronary event but we cannot read his electrocardiogram. He has not noticed a weight gain or peripheral edema. We will need to diuresis, trend his cardiac enzymes to make sure it is not an ischemic event. I don't know what her recent ejection fraction is, the last echocardiogram that he had here was in November of this year and his ejection fraction was 25%. He is scheduled to get another echocardiogram. If that shows substantial worsening then he probably should have an upgrade to a biventricular device. He is on good doses of carvedilol as an outpatient. #2. Coronary disease: He has documented coronary disease and we had anticipated him having bypass surgery, I don't know if he had other cardiac interventions. So far his cardiac enzymes are negative, however he is complaining of intermittent chest discomfort which could be angina and we will need to trend his enzymes. If they are significantly abnormal he may need another catheterization depending on what he had done elsewhere. For now however I would not pursue this unless his enzymes become positive. #3. ICD: He has a dual-chamber ICD in place, that is being actively followed at [facility] and I do not see any indication to evaluate that at this time although certainly can do that if needed. #4. Atrial fibrillation: He is reported to have atrial fibrillation, I think that was reported to have been identified on his device in the past but he is not on an anticoagulant. I do not seen evidence of atrial fibrillation this admission therefore I have not adjusted his medications. Thank you for allowing me to participate in his care.
[2017-07-28] MEDS ORDERED: INSULIN ASPART 100 UNITS/ML 3 ML PEN SC SCH (12:00)
[2017-07-28] MEDS ORDERED: NURSING VERBAL MED ORDER ONE (12:30)
[2017-07-28] MEDS: INSULIN ASPART 100 UNITS/ML 3 ML PEN SC SCH ×3 (12:32→20:34)
[2017-07-28] MEDS: HEPARIN SOD 5000 UNIT/0.5 ML CARP SQ SCH ×2 (12:33→20:40)
--- NOTE | 2017-07-28 13:44 | Pharmacy Progress Note ---
Glycemic Control Intl Consult Date of Service Jul 28, 2017. Scope Glycemic Pharmacist consulted by Dr López on 07/28/17 for glycemic control and to write orders per [facility] inpatient glycemic control protocol Objective Weight (Kilograms): 103.100 Accuchecks BSG (last 24hrs): Test 07/28/17 06:50 07/28/17 09:15 07/28/17 13:16 Random Glucose 414 mg/dl (70-99) Bedside Glucose 171 mg/dl (70-99) Laboratory Data (last 24hrs) Test 07/28/17 06:50 07/28/17 13:16 Anion Gap 6.0 mmol/L BUN/Creatinine Ratio 15.4 Blood Urea Nitrogen 31 mg/dl Creatinine 2.00 mg/dl Hemoglobin A1c 6.8 % Potassium Level 6.4 mmol/L Sodium Level 136 mmol/L White Blood Count 11.01 K/uL HbA1c Test 07/28/17 06:50 Hemoglobin A1c 6.8 % (4.5-5.6) H Recent Pertinent Medications Outpatient Anti-diabetic Regimen: * Amaryl 2 mg daily The patient is currently receiving: * Regular insulin 5 units IV x 1 in the ER Risk Factors for Insulin Resistance: * Stress Assessment & Plan ASSESSMENT: * 61 y/o male admitted with acute on chronic HF, significantly elevated BSG on admission and plan was to initiate an insulin drip but BSG fell significantly after a one time bolus of IV insulin - currently at 125 mg/dL. At this point, since BSG has improved, A1c is acceptable and no major stressors are on board, will NOT initiate an insulin drip at this time. * Pt is maintained on oral antidiabetic agents as an outpatient * Oral agents are not recommended for inpatient use d/t drug interactions, changing PO intake, and difficulty titrating for acute hyper/hypoglycemia. ADA recommends re-initiating outpatient oral agents 1-2 days prior to discharge if/ when appropriate if they were held on admission. * Will hold oral agents for admission and utilize SQ basal bolus insulin regimen which is the recommended regimen for inpatient glycemic control. * Will initiate weight based insulin dosing for insulin priyanka patient and titrate based on BSG trends. * ADA & AACE recommend a goal blood sugar range 140-180 mg/dl for the majority of critically ill & non-critically ill patients. However, more stringent targets may be selected in individual cases. Will utilize more stringent goal of 110-140 mg/dl based on patient age & comorbidities. Additionally, tighter glycemic control is warranted to facilitate wound/infection healing. PLAN FOR INPATIENT GLYCEMIC CONTROL: * Hold off on insulin infusion at this time * Hold outpatient oral diabetes medications * Basal insulin with LANTUS 9 units SQ BID (hold if BSG < 140) * Correctional Insulin with NOVOLOG per scale ACHS or Q6hrs while NPO * Goal Range: Low 110 mg/dL - High 140 mg/dL * Correction Factor: 25 mg/dL/unit * Nutritional / Prandial insulin per carb ratio of 1 unit per 8 grams CHO consumed DISCHARGE RECOMMENDATIONS: * A1c indicates excellent outpatient control * Continue Amaryl 2 mg daily Thank you.
[2017-07-28 14:05] LABS: BUN/CREATININE RATIO 19.4 (10-20); CALCIUM 9.4 mg/dl (8.5-10.1); CREATININE 1.6 mg/dl (0.60-1.40); POTASSIUM 4.3 mmol/L (3.5-5.1)
[2017-07-28] MEDS ORDERED: FUROSEMIDE INJ 40 MG in SYRINGE 0 ML IV ONE (15:00)
--- NOTE | 2017-07-28 15:57 | ECHOCARDIOGRAM REPORT ---
*NOTICE TO RECEIVING LIBERTARIAN AGENCY This information is strictly Confidential and protected under [place] law. [place] law prohibits you from making any further disclosure of this information unless further disclosure is expressly permitted by the written consent of the person to whom it pertains or is authorized by law. A general authorization for the release of medical or other information is not sufficient for this purpose. Hospital accepts no responsibility if the information is made available to any other person, INCLUDING THE PATIENT. Interpretation Summary * Name: TAMIE VAUGHAN Study Date: 07/28/2017 01:31 PM BP: 101/70 mmHg * Patient Location: C.2T\S\S229\S\1 HR: 86 * : 1955 (M/d/yyyy) Gender: Male Height: 67 in * Age: 61 yrs Ethnicity: [place] Weight: 231 lb * Ordering Physician: Ivana Benjamin * Referring Physician: Self, Referred * Performed By: Antonio Leslie RCS * * Reason For Study: CHF * BSA: 2.1 m2 * -- Conclusions -- * Technically limited study despite use of definity ultrasound contrast. * 1. Severely dilated LV. Moderate to severe LV dysfunction. LVEF 30-35%. Mid to apical anterior, septal akinesis. Akinetic apex. * 2. Normal RV size and function * 3. Grade II diastolic dysfunction. * 4. Mild mitral regurgitation. * 5. Compared with prior study on 12/02/2016: No significant change. Procedure Details * There were technical limitations due to patient'sbody habitus * The study was technically difficult. * A contrast injection of Definity was performed to improve assessment of LV function. * Contrast was injected into an intravenous site in the left arm. * One vial of Definity ultrasound contrast was diluted in normal saline to a total volume of 10 ml. A total of '5' ml of solution was administered during imaging. * Lot # [id number] of Definity utilized for procedure. * Expiration date . * The attending nurse who injected the contrast agent was VENKATESH MAYS. Left Ventricle * The left ventricle is severely dilated. * Ejection Fraction = 30-35%. * There is anterior wall akinesis. * There is septal akinesis. * There is apical akinesis. Right Ventricle * The right ventricle is grossly normal size. * The right ventricular systolic function is normal as assessed by tricuspid annular plane systolic excursion (TAPSE) (normal >1.5 cm). Atria * The left atrium is mildly dilated. * Right atrial size is normal. Mitral Valve * The mitral valve is grossly normal. * There is no mitral valve stenosis. * There is mild mitral regurgitation. Tricuspid Valve * The tricuspid valve is not well visualized, but is grossly normal. * No tricuspid regurgitation. Aortic Valve * The aortic valve is not well visualized. * No hemodynamically significant valvular aortic stenosis. * There is no significant aortic regurgitation. Pericardium/Pleural * There is no pericardial effusion. Left Ventricular Diastolic Function * Diastolic dysfunction, Grade II, consistent with elevated left atrial pressure. MMode 2D Measurements and Calculations LVAd ap4 45.2 cm\S\2 LVLd ap4 9.8 cm EDV(MOD-sp4) 169.6 ml EDV(sp4-el) 177.6 ml LVAs ap4 34.8 cm\S\2 LVLs ap4 9.8 cm ESV(MOD-sp4) 98.7 ml ESV(sp4-el) 105.2 ml EF(MOD-sp4) 41.8 % EF(sp4-el) 40.8 % LVAd ap2 49.2 cm\S\2 LVLd ap2 9.4 cm EDV(MOD-sp2) 204.9 ml EDV(sp2-el) 219.1 ml LVAs ap2 40.0 cm\S\2 LVLs ap2 9.1 cm ESV(MOD-sp2) 142.0 ml ESV(sp2-el) 148.6 ml EF(MOD-sp2) 30.7 % EF(sp2-el) 32.2 % LVLd %diff -4.30 % EDV(MOD-bp) 186.0 ml LVLs %diff -6.86 % ESV(MOD-bp) 122.1 ml EF(MOD-bp) 34.3 % SV(MOD-sp4) 70.9 ml SI(MOD-sp4) 33.0 ml/m\S\2 SV(MOD-sp2) 62.9 ml SI(MOD-sp2) 29.2 ml/m\S\2 SV(MOD-bp) 63.9 ml SI(MOD-bp) 29.7 ml/m\S\2 SV(sp4-el) 72.4 ml SI(sp4-el) 33.7 ml/m\S\2 SV(sp2-el) 70.5 ml SI(sp2-el) 32.8 ml/m\S\2 Doppler Measurements and Calculations Ao V2 max 118.1 cm/sec Ao max PG 5.6 mmHg Ao max PG (full) 2.6 mmHg LV V1 max PG 3.0 mmHg LV V1 max 86.0 cm/sec
[2017-07-28] MEDS: FUROSEMIDE INJ 40 MG in SYRINGE 0 ML IV SCH (17:08)
[2017-07-28] MEDS: ACETAMINOPHEN 325 MG TAB PO PRN (17:17)
[2017-07-28] MEDS: ATORVASTATIN 40 MG TAB PO SCH (20:33)
[2017-07-28] MEDS: INSULIN GLARGINE SOLOSTAR 100 UNITS/ML 3 ML PEN SC SCH (21:00)
[2017-07-29] VITALS (7 sets, daily range): BP systolic 90–131; BP diastolic 56–77; PULSE 74–83; TEMP 36.4–37.1; O2SAT 92–97
[2017-07-29] MEDS: ACETAMINOPHEN 325 MG TAB PO PRN (03:17)
[2017-07-29] MEDS: HEPARIN SOD 5000 UNIT/0.5 ML CARP SQ SCH ×3 (06:10→20:56)
[2017-07-29] MEDS: INSULIN ASPART 100 UNITS/ML 3 ML PEN SC SCH ×4 (07:00→20:10)
[2017-07-29] MEDS: ASPIRIN 81 MG ECTAB PO SCH (07:54)
[2017-07-29] MEDS: CARVEDILOL 25 MG TAB PO SCH ×2 (07:54→20:07)
[2017-07-29] MEDS: FUROSEMIDE INJ 40 MG in SYRINGE 0 ML IV SCH ×2 (07:54→17:22)
[2017-07-29] MEDS: CHOLECALCIFEROL 1000 INTER.UNIT TAB PO SCH ×2 (07:55→20:07)
[2017-07-29] MEDS: CYANOCOBALAMIN 500 MCG TAB (VIT B-12) PO SCH (07:55)
[2017-07-29 07:56] LABS: BASO % 0.3 %; BASO ABS # 0.03 K/uL (0-0.2); COMPLETE YES; EOS % 2.2 %; HEMATOCRIT 43.1 % (42-52); IG% 0.3 %; LYMPH % 24.8 %; LYMPH ABS # 2.14 K/uL (1.2-3.4); MEAN CELL VOLUME 90.9 fL (80-100); MEAN CORPUSCULAR HEMOGLOBIN 29.5 pg (25-34); MEAN CORPUSCULAR HGB CONC 32.5 g/dl (32-36); MEAN PLATELET VOLUME 10.9 fL (7.4-10.4); MONO % 14.8 %; NEUT % 57.6 %; PLATELET COUNT 169 K/uL (130-400); RED BLOOD COUNT 4.74 M/uL (4.7-6.1); WHITE BLOOD COUNT 8.62 K/uL (4.8-10.8)
[2017-07-29] MEDS: INSULIN GLARGINE SOLOSTAR 100 UNITS/ML 3 ML PEN SC SCH ×2 (08:03→20:10)
[2017-07-29 08:32] LABS: BUN/CREATININE RATIO 21.5 (10-20); CREATININE 1.4 mg/dl (0.60-1.40); MAGNESIUM 2.3 mg/dl (1.8-2.4); POTASSIUM 3.8 mmol/L (3.5-5.1)
[2017-07-29 08:34] LABS: PHOSPHORUS 3.1 mg/dl (2.5-4.9)
[2017-07-29] MEDS ORDERED: FUROSEMIDE 20 MG TAB PO SCH (09:00)
--- NOTE | 2017-07-29 10:30 | Pharmacy Progress Note ---
Glycemic Control Progress Note Date of Service Jul 29, 2017. Scope Glycemic Pharmacist consulted for glycemic control to write orders per [facility] inpatient glycemic control protocol. Objective Accuchecks BSG (last 24hrs): Test 07/28/17 10:27 07/28/17 13:16 07/28/17 16:20 07/28/17 20:00 Bedside Glucose 128 mg/dl (70-99) 99 mg/dl (70-99) 112 mg/dl (70-99) Random Glucose 128 mg/dl (70-99) Test 07/29/17 06:15 07/29/17 07:14 Bedside Glucose 179 mg/dl (70-99) Random Glucose 131 mg/dl (70-99) HbA1c: Test 07/28/17 06:50 Hemoglobin A1c 6.8 % (4.5-5.6) H Recent Pertinent Medications Outpatient Anti-diabetic Regimen: * Amaryl 2 mg daily The patient is currently receiving: * Lantus 9 units BID (hold if BSG less than 140) * Novolog ACHS * Goal 110-140 * CF 25 * CR 8 Risk Factors for Insulin Resistance: * Stress * AHA/Type 2 diabetes diet - consuming adequate amts of CHO Outpatient Anti-Diabetic Meds [Oral Agents] [Basal Insulin] [Bolus Insulin] or [GLP-1 RA] Assessment & Plan ASSESSMENT: 07/28 * 61 y/o male admitted with acute on chronic HF, significantly elevated BSG on admission and plan was to initiate an insulin drip but BSG fell significantly after a one time bolus of IV insulin - currently at 125 mg/dL. At this point, since BSG has improved, A1c is acceptable and no major stressors are on board, will NOT initiate an insulin drip at this time. * Pt is maintained on oral antidiabetic agents as an outpatient * Oral agents are not recommended for inpatient use d/t drug interactions, changing PO intake, and difficulty titrating for acute hyper/hypoglycemia. ADA recommends re-initiating outpatient oral agents 1-2 days prior to discharge if/ when appropriate if they were held on admission. * Will hold oral agents for admission and utilize SQ basal bolus insulin regimen which is the recommended regimen for inpatient glycemic control. * Will initiate weight based insulin dosing for insulin priyanka patient and titrate based on BSG trends. * ADA & AACE recommend a goal blood sugar range 140-180 mg/dl for the majority of critically ill & non-critically ill patients. However, more stringent targets may be selected in individual cases. Will utilize more stringent goal of 110-140 mg/dl based on patient age & comorbidities. Additionally, tighter glycemic control is warranted to facilitate wound/infection healing. 07/29 * Patient received 9 units of SQ + 5 units of IV insulin yesterday with BSGs ranging from 99-179 mg/dL in the past 24 hours * BSGs have improved significantly from initial ones in the ER * Postprandial BSGs yesterday did not go low but were on the low side so will loosen the CR slightly to prevent hypoglycemia PLAN FOR INPATIENT GLYCEMIC CONTROL: * Continue Basal insulin with LANTUS 9 units SQ BID (hold if BSG < 140) * Correctional Insulin with NOVOLOG per scale ACHS or Q6hrs while NPO * Goal Range: Low 110 mg/dL - High 140 mg/dL * Correction Factor: 25 mg/dL/unit * Change carb ratio to: 1 unit per 10 grams CHO consumed DISCHARGE RECOMMENDATIONS: * A1c indicates excellent outpatient control * Continue Amaryl 2 mg daily Thank you.
--- NOTE | 2017-07-29 11:08 | Hospitalist Progress Note ---
Hospitalist Progress Note Date of Service Jul 29, 2017. Subjective Pt evaluation today including: conversation w/ patient, physical exam, chart review, lab review, review of inpatient medication list Pain: None PO Intake: Tolerating PO diet Voiding: no voiding problems Patient reports feeling well. He was weaned off BiPAP yesterday and is now on NC. He denies any shortness of breath or dyspnea on exertion when getting up to the bathroom. He states that his chest soreness is resolved. The patient is tolerating a PO diet and urinating without difficulty. The patient denies fevers, chills, sweats, chest pain, palpitations, claudication, cough, wheezing , shortness of breath, nausea, vomiting, abdominal pain, dysuria, hematuria, urinary retention, paralysis, weakness, numbness and tingling. Additional Comments: See HPI for pertinent positives and negatives. All other systems reviewed and negative. Objective Vital Signs Date Time Temp Pulse Resp B/P (MAP) Pulse Ox O2 Delivery O2 Flow Rate FiO2 07/29/17 08:00 Nasal Cannula 3.0 07/29/17 07:41 36.5 77 18 131/77 (95) 95 2.0 07/29/17 04:00 Nasal Cannula 3.0 07/29/17 03:07 36.8 74 20 106/68 (81) 97 Nasal Cannula 4.0 07/29/17 00:20 Nasal Cannula 4.0 07/29/17 00:12 36.6 74 19 102/62 (75) 95 Nasal Cannula 5.0 07/28/17 20:00 Nasal Cannula 6.0 07/28/17 19:36 36.6 92 20 120/66 (84) 94 Nasal Cannula 6.0 07/28/17 16:49 36.5 83 22 99/60 (73) 94 Nasal Cannula 6.0 07/28/17 16:00 95 Nasal Cannula 6.0 07/28/17 14:35 86 96 50 07/28/17 12:00 95 BiPAP 50 07/28/17 11:34 36.5 Physical Exam Notes: General appearance: +Obese. Well-developed, well-nourished, no apparent distress Head: Normocephalic, atraumatic Eyes: Normal inspection, PERRL, EOMI ENT: Normal ENT inspection, hearing grossly normal Neck: Supple, no JVD, trachea midline Respiratory/Chest: +Diminished breath sounds in bases. Lungs clear to auscultation, no respiratory distress Cardiovascular: Regular rate & rhythm, no gallop, no murmur Abdomen/GI: Normal bowel sounds, non-tender, soft Extremities/Musculoskeletal: Normal inspection, no calf tenderness, no pedal edema Neurological/Psych: Alert, normal mood/affect, oriented x 3 Skin: Normal color, warm/dry, no rash Laboratory Results Last 24 Hours Test 07/28/17 13:16 07/28/17 16:20 07/28/17 20:00 07/29/17 06:15 Sodium Level 140 mmol/L Potassium Level 4.3 mmol/L Chloride Level 104 mmol/L Carbon Dioxide Level 29 mmol/L Anion Gap 7.0 mmol/L Blood Urea Nitrogen 31 mg/dl Creatinine 1.60 mg/dl Est Creatinine Clear Calc Drug Dose 55.0 ml/min Estimated GFR () 52.4 Estimated GFR (Non- 45.2 BUN/Creatinine Ratio 19.4 Random Glucose 128 mg/dl Calcium Level 9.4 mg/dl Bedside Glucose 99 mg/dl 112 mg/dl 179 mg/dl Test 07/29/17 07:14 White Blood Count 8.62 K/uL Red Blood Count 4.74 M/uL Hemoglobin 14.0 g/dL Hematocrit 43.1 % Mean Corpuscular Volume 90.9 fL Mean Corpuscular Hemoglobin 29.5 pg Mean Corpuscular Hemoglobin Concent 32.5 g/dl Platelet Count 169 K/uL Mean Platelet Volume 10.9 fL Neutrophils (%) (Auto) 57.6 % Lymphocytes (%) (Auto) 24.8 % Monocytes (%) (Auto) 14.8 % Eosinophils (%) (Auto) 2.2 % Basophils (%) (Auto) 0.3 % Neutrophils # (Auto) 4.95 K/uL Lymphocytes # (Auto) 2.14 K/uL Monocytes # (Auto) 1.28 K/uL Eosinophils # (Auto) 0.19 K/uL Basophils # (Auto) 0.03 K/uL RDW Standard Deviation 45.7 fL RDW Coefficient of Variation 13.7 % Immature Granulocyte % (Auto) 0.3 % Immature Granulocyte # (Auto) 0.03 K/uL Sodium Level 140 mmol/L Potassium Level 3.8 mmol/L Chloride Level 105 mmol/L Carbon Dioxide Level 28 mmol/L Anion Gap 7.0 mmol/L Blood Urea Nitrogen 30 mg/dl Creatinine 1.40 mg/dl Est Creatinine Clear Calc Drug Dose 63.1 ml/min Estimated GFR () 61.5 Estimated GFR (Non- 53.1 BUN/Creatinine Ratio 21.5 Random Glucose 131 mg/dl Calcium Level 9.0 mg/dl Phosphorus Level 3.1 mg/dl Magnesium Level 2.3 mg/dl Assessment and Plan 61 y/o male with a history of combined systolic and diastolic congestive heart failure, paroxysmal a-fib, HTN, HLD, CAD, s/p pacemaker, COPD, DM II, and CKD stage III who presented to the ED on 07/28 with acute hypoxic respiratory failure. Pt arrived to ED tachycardic with HR 133 as well as tachypneic with RR of 27. O2 saturation 94% on CPAP. HR went as high as 168 and did return to a normal rate without being given any rate-control medications. Pt was placed on BiPAP. CXR shows pulmonary edema. EKG showed a-fib with RVR and LBBB, although the LBBB appears to be rate related and on monitor, pt appears to have returned to his previous incomplete LBBB. Troponin negative. Potassium 6.4. Creatinine elevated above baseline at 2.00. Glucose 414, beta hydroxybutyric acid WNL. POC lactic acid elevated at 2.27. Acute hypoxic respiratory failure secondary to acute on chronic systolic/ diastolic CHF, s/p pacemaker placement--improving -Admit to telemetry. Pt mostly in SR with PVCs with HR in 80s-90s. Pt did have 13 beat run of v-tach at 17:01 on 07/28. Pt asymptomatic -O2 by protocol. Off BiPAP, currently on 3L -Xopenex/Atrovent nebs q6h prn SOB/wheezing. Hold home Combivent -Lasix 40 mg IV BID17 per cardiology -1500 mL fluid restriction -Daily weights, strict I's & O's -UO 2125 cc, net balance -1645 on 07/28 -Continue Coreg 25 mg PO BID -Resume lisinopril 5 mg PO qd -Pt's pacemaker placed in 2008. He states he is due for a "tune up" at the end of the month for a new battery and wires -Last echo November 2016 showed LVEF 25%, markedly dilated LV with severe global hypokinesis, and grade I diastolic dysfunction -Echo shows LVEF 30-35%. Mid to apical anterior, septal akineses. Akinetic apex. Grade II diastolic dysfunction. A-fib with RVR, h/o paroxysmal a-fib--resolved -Cardiology consulted, appreciate recs: Will diurese. If ejection fraction worse on echo, consider biventricular device. If cardiac enzymes abnormal, consider catheterization. -Lopressor 5 mg IV q4h prn HR > 120 -Magnesium WNL Hyperglycemia, DM II--last HgbA1c was 7.5 in 2014 -BSG 414 on arrival, given Novolin R 5 units IV x 1 in ED -Pharmacy consulted for glycemic control -Hold glimepiride -Insulin drip d/c'd -Lantus 0-9 units SC BID sliding scale, Novolog sliding scale -Check BSGs q ac and qhs -HgbA1c 6.8 on 07/28 Hyperkalemia--resolved -Potassium 6.4 on admission -Pt received insulin drip and Lasix -Potassium 3.8 on 07/29 ART on CKD stage III--resolved -Baseline creatinine around 1.6 -Creatinine 2.00 on admission -Creatinine 1.4 on 07/29 CAD, HTN, HLD--stable -Continue ASA 81 mg PO qd, Coreg, lisinopril, atorvastatin 80 mg PO qd COPD -Nebulizers as above, Combivent held -Pt was supposed to be on 2L oxygen prn at home but did not start until morning [employer]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
[2017-07-29] MEDS: ATORVASTATIN 40 MG TAB PO SCH (20:06)
[2017-07-30] VITALS (8 sets, daily range): BP systolic 94–121; BP diastolic 62–83; PULSE 70–123; TEMP 36.3–36.8; O2SAT 91–95
[2017-07-30] MEDS: ACETAMINOPHEN 325 MG TAB PO PRN (01:19)
[2017-07-30] MEDS: HEPARIN SOD 5000 UNIT/0.5 ML CARP SQ SCH ×3 (06:16→21:34)
[2017-07-30 06:25] LABS: HEMATOCRIT 42.6 % (42-52); MEAN CELL VOLUME 89.3 fL (80-100); MEAN CORPUSCULAR HEMOGLOBIN 29.6 pg (25-34); MEAN CORPUSCULAR HGB CONC 33.1 g/dl (32-36); MEAN PLATELET VOLUME 11.1 fL (7.4-10.4); PLATELET COUNT 166 K/uL (130-400); RED BLOOD COUNT 4.77 M/uL (4.7-6.1); WHITE BLOOD COUNT 7.21 K/uL (4.8-10.8)
[2017-07-30 07:01] LABS: CALCIUM 8.6 mg/dl (8.5-10.1); CREATININE 1.4 mg/dl (0.60-1.40); MAGNESIUM 2.3 mg/dl (1.8-2.4); POTASSIUM 3.7 mmol/L (3.5-5.1)
[2017-07-30] MEDS: INSULIN ASPART 100 UNITS/ML 3 ML PEN SC SCH ×4 (07:46→21:35)
--- NOTE | 2017-07-30 07:47 | DIAGNOSTIC IMAGING REPORT ---
CHEST ONE VIEW PORTABLE CLINICAL HISTORY: 61 years-old Male presenting with CHF, hypoxia. TECHNIQUE: Portable upright AP view of the chest was obtained. COMPARISON: 07/28/2017. FINDINGS: Left-sided implanted cardiac defibrillator with leads to the right atrium and right ventricular apex. Cardiac silhouette remains mildly enlarged. Atherosclerosis of aortic arch. Decreased prominence of pulmonary vasculature with increased pulmonary vascular distinctness. Decreased perihilar and bibasilar opacities. No large effusion or pneumothorax. Osseous structures normal. Upper abdomen normal. IMPRESSION: 1. Significant interval improvement in pulmonary edema and volume overload. 2. Mild cardiomegaly. Electronically signed by: Truong Pradhan M.D. 07/30/2017 7:46 AM Dictated Date/Time: 07/30/2017 7:44 AM
[2017-07-30] MEDS: ASPIRIN 81 MG ECTAB PO SCH (08:49)
[2017-07-30] MEDS: CARVEDILOL 25 MG TAB PO SCH ×2 (08:49→21:31)
[2017-07-30] MEDS: CYANOCOBALAMIN 500 MCG TAB (VIT B-12) PO SCH (08:51)
[2017-07-30] MEDS: CHOLECALCIFEROL 1000 INTER.UNIT TAB PO SCH ×2 (08:51→21:31)
[2017-07-30] MEDS: LISINOPRIL 5 MG TAB PO SCH (08:52)
[2017-07-30] MEDS: INSULIN GLARGINE SOLOSTAR 100 UNITS/ML 3 ML PEN SC SCH ×3 (08:53→21:00)
[2017-07-30] MEDS ORDERED: FUROSEMIDE 20 MG TAB PO SCH (09:00)
--- NOTE | 2017-07-30 09:16 | Pharmacy Progress Note ---
Glycemic Control Progress Note Date of Service Jul 30, 2017. Scope Glycemic Pharmacist consulted for glycemic control to write orders per [facility] inpatient glycemic control protocol. Objective Accuchecks BSG (last 24hrs): Test 07/29/17 11:06 07/29/17 16:25 07/29/17 20:05 07/30/17 05:21 Bedside Glucose 147 mg/dl (70-99) 95 mg/dl (70-99) 98 mg/dl (70-99) Random Glucose 115 mg/dl (70-99) Test 07/30/17 07:26 Bedside Glucose 124 mg/dl (70-99) HbA1c: Test 07/28/17 06:50 Hemoglobin A1c 6.8 % (4.5-5.6) H Recent Pertinent Medications The patient is currently receiving: * Basal insulin: Lantus 0-9 units every 12 hours (No Lantus if blood sugar less than 140 mg/dL, Lantus 9 units if blood sugar 140 mg/dL or greater) * Correctional Insulin: Novolog Correction per scale ACHS Goal Range: Low 110 mg/dL - High 140 mg/dL Correction Factor: 25 mg/dL/unit * Prandial insulin: Per carb ratio of 1 unit per 10 grams CHO consumed Outpatient Anti-Diabetic Meds Amaryl 2 mg PO daily Assessment & Plan ASSESSMENT: * See progress note from 07/29/17 for more background info, in short: * Pt receiving SQ basal bolus insulin regimen for hyperglycemia secondary to baseline DM (outpatient regimen on hold). Patient is currently no longer on BiPAP. His IV Lasix has been converted to PO Lasix and patient is diuresing nicely. * Patient is currently receiving an average of 27 units of insulin per day * 9 units of basal insulin * 18 units of prandial/correctional insulin * BSGs ranging 95 - 179 mg/dl over the past 24hrs * Changes needed to insulin regimen: * AM Fasting BSG = 124 mg/dl. This is within goal range for patient based on inpatient targets and co-morbidities. Therefore Basal insulin will be continued. There is uncertainty as to if the patient requires scheduled basal insulin currently. Fasting is definitely slightly higher than evening blood sugar but also significantly less than fasting yesterday. Will continue sliding scale. * Post-prandial BSGs trended upwards at lunch. Tightened carbohydrate ratio slightly. * Total daily dose = 27 units. This dosing is yielding adequate glycemic control so therefore will continue current regimen. PLAN FOR INPATIENT GLYCEMIC CONTROL: * Continuing Lantus 0-9 units SQ BID (Lantus 0 units if blood sugar less than 140 mg/dL and Lantus 9 units if blood sugar 140 mg/dL or greater) * Continuing correction factor of 25 mg/dl/unit * TIGHTEN carb ratio to 1 unit per 8 grams CHO consumed * Continuing goal range of Low 110 mg/dL - High 140 mg/dL RECOMMENDATIONS FOR DISCHARGE: * See note from 07/28/17, current current regimen Thank you.
--- NOTE | 2017-07-30 09:57 | Cardiology Follow-Up ---
Subjective General Date of Service: Jul 30, 2017. Pt evaluation today including: conversation w/ patient, chart review, lab review, review of studies, conversation w/ consumer services consultant History of Present Illness The patient is a 61 year old male Allergies Coded Allergies: Budesonide (Verified Allergy, Unknown, TACHYCARDIA, SOB, 07/28/17) Carbamazepine (Verified Allergy, Unknown, TACHYCARDIA, PANIC ATTACK, ) Cyclobenzaprine (Verified Allergy, Unknown, UNK, 07/28/17) Doxycycline (Verified Allergy, Unknown, ABD PAIN, 07/28/17) Fluticasone (Verified Allergy, Unknown, UNK, 07/28/17) Formoterol (Verified Allergy, Unknown, TACHYCARDIA, SOB, 07/28/17) Salmeterol (Verified Allergy, Unknown, ANAPHYLAXIS, 07/28/17) Sodium Propionate (Verified Allergy, Unknown, SHORTNESS OF BREATH, 07/28/17) Digoxin (Verified Adverse Reaction, Unknown, BACK AND STOMACH PAIN, 07/28/17 ) Metformin (Verified Adverse Reaction, Unknown, MUSCLE ACHES IN BVACK AND KIDNEYS, 07/28/17) Social History Smoking Status: Former Smoker Hx Tobacco Use In Past Year?: No Hx Alcohol Use - Type And Amou: No Hx Substance Use - Type And Am: No Problem List Medical Problems: (1) Diabetes mellitus out of control Status: Acute (2) Hyperkalemia Status: Acute (3) Hypotension Status: Acute (4) Left sided chest pain Status: Acute (5) Pulmonary edema Status: Acute (6) Right kidney mass Status: Acute Review of Systems Respiratory: + shortness of breath, No cough, No dyspnea on exertion, No dyspnea at rest Cardiac: No chest pain, No edema, No palpitations Physical Exam Vital Signs Last Vital Signs Documentation Date Time Temp Pulse Resp B/P (MAP) Pulse Ox O2 Delivery O2 Flow Rate FiO2 07/30/17 08:00 Room Air 07/30/17 07:17 36.5 77 12 121/83 (96) 93 07/29/17 16:47 3.0 07/28/17 14:35 50 Physical Exam Constitutional: General Apperance: overweight Level of Distress: NAD Psychiatric: Mental Status: active & alert Eyes: EOM: EOMI Lungs: Auscultation: no wheezing, no rhonchi, rales/crackles on the left, rales/ crackles on the right Cardiovascular: Heart Auscultation: RRR, no murmurs, no rubs, no gallops Peripheral Pulses: Bruits: none appreciated Abdomen: Bowel Sounds: normal Inspection & Palpation: soft, no tenderness, guarding & rebound, no masses Extremities: no edema Assessment and Plan Assessment and Plan 1) Acute on chronic Systolic CHF 2) Severe NICM; LVEF 15%, LVEDV 500 cc 3) Severe [place] by [place] 04[place]04 [place] [place] 4) Severe LM and Prox LAD dz--turned down by CT sx [place] [facility] [place] 5) Renal cell CA--obsercation, Sx on hold per [facility] [place]rology 6) ICD with patient delaying upgrade to BiV ICD until end of 7) ANDREW using CPAP 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 this 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 I encouraged him to move up the date for his BiV ICD (currently 09/17 and waiting for end of ) Non compliance with diet As outpt I would try and add entresto but will need to stop CLIFTON 36 hours prior to starting Change lasix to bumex 2mg daily with him on the road CHF education done this am Continue other meds Laboratory Results Last 24 Hours Test 07/29/17 11:06 07/29/17 16:25 07/29/17 20:05 07/30/17 05:21 Bedside Glucose 147 mg/dl 95 mg/dl 98 mg/dl White Blood Count 7.21 K/uL Red Blood Count 4.77 M/uL Hemoglobin 14.1 g/dL Hematocrit 42.6 % Mean Corpuscular Volume 89.3 fL Mean Corpuscular Hemoglobin 29.6 pg Mean Corpuscular Hemoglobin Concent 33.1 g/dl RDW Standard Deviation 45.2 fL RDW Coefficient of Variation 13.7 % Platelet Count 166 K/uL Mean Platelet Volume 11.1 fL Sodium Level 141 mmol/L Potassium Level 3.7 mmol/L Chloride Level 105 mmol/L Carbon Dioxide Level 29 mmol/L Anion Gap 7.0 mmol/L Blood Urea Nitrogen 28 mg/dl Creatinine 1.40 mg/dl Est Creatinine Clear Calc Drug Dose 62.5 ml/min Estimated GFR () 61.5 Estimated GFR (Non- 53.1 BUN/Creatinine Ratio 20.0 Random Glucose 115 mg/dl Calcium Level 8.6 mg/dl Magnesium Level 2.3 mg/dl Test 07/30/17 07:26 Bedside Glucose 124 mg/dl
--- NOTE | 2017-07-30 14:01 | Hospitalist Progress Note ---
Hospitalist Progress Note Date of Service Jul 30, 2017. (Mayte Martin PA-C) Subjective Pt evaluation today including: conversation w/ patient, physical exam, chart review, lab review, review of studies, review of inpatient medication list Patient seen and evaluated. Tele reviewed with NSR with occ. petey with intermittent PVCs. Will have runs between 4-8 beats at a time. Is ambulating and adequately oxygenating of RA. Feels at baseline for breathing at this time. Is due to have BiV ICD placed at end of Aug. Diuresed approx. 5 L fluid. Does report non-compliance with diet and due to traveling. Has had multiple issues with CHF this summer. Would benefit from in-hospital diuresis prior to D/C given compliance issues. Kidney function allows further diuresis. Cardiology switched Lasix over to Bumex and plan to possibly use Entresto as outpatient. Constitutional: No fever, No chills Respiratory: No wheezing, No dyspnea on exertion, No dyspnea at rest Cardiovascular: No chest pain, No palpitations Abdomen: No pain, No nausea, No vomiting Male : No dysuria Heme: No abnormal bleeding/bruising (Mayte Martin PA-C) Medications Current Inpatient Medications Medications (Trade) Dose Ordered Sig/Pearl Route Start Time Stop Time Status Last Admin Dose Admin Heparin Sodium (Porcine) (Heparin Sq 5000 Unit/0.5ml) 5,000 unit Q8 SQ 07/28/17 14:00 08/27/17 13:59 07/30/17 13:25 5,000 UNIT Acetaminophen (Tylenol Tab) 650 mg Q4H PRN PO 07/28/17 08:30 08/27/17 08:29 07/30/17 01:19 650 MG Ondansetron HCl (Zofran Inj) 4 mg Q6H PRN IV 07/28/17 08:30 08/27/17 08:29 Nitroglycerin (Nitrostat Tab) 0.4 mg UD PRN SL 07/28/17 08:30 08/27/17 08:29 Morphine Sulfate (MoRPHine SULFATE INJ) 2 mg Q30M PRN IV 07/28/17 08:30 08/11/17 08:29 Polyethylene (Miralax Powder Packet) 17 gm DAILY PRN PO 07/28/17 08:30 08/27/17 08:29 Miscellaneous Information (Consult Glycemic Management Pharmacy) 1 ea UD N/A 07/28/17 08:48 08/27/17 08:47 Aspirin (Ecotrin Tab) 81 mg QAM PO 07/28/17 11:00 08/27/17 10:59 07/30/17 08:49 81 MG Carvedilol (Coreg Tab) 25 mg BID PO 07/28/17 11:00 08/27/17 10:59 07/30/17 08:49 25 MG Cholecalciferol (Vitamin D Tab) 1,000 inter.unit BID PO 07/28/17 11:00 08/27/17 10:59 07/30/17 08:51 1,000 INTER.UNIT Cyanocobalamin (Vitamin B-12 Tab) 500 mcg QAM PO 07/28/17 11:00 08/27/17 10:59 07/30/17 08:51 500 MCG Metoprolol Tartrate (Lopressor Iv) 5 mg Q4H PRN IV 07/28/17 08:45 08/27/17 08:44 Ipratropium [place] (Atrovent 0.02% 0.5MG/2.5ML Neb) 0.5 mg Q6H PRN INH 07/28/17 10:00 08/27/17 09:59 Levalbuterol (Xopenex 1.25MG/ 0.5ML Neb) 1.25 mg Q6H PRN INH 07/28/17 10:00 08/27/17 09:59 Insulin Aspart (novoLOG ASPART) SLIDING SCALE ACHS SC 07/28/17 11:30 08/27/17 11:29 07/30/17 12:11 7 UNITS Atorvastatin Calcium (Lipitor Tab) 80 mg PM PO 07/28/17 21:00 08/27/17 20:59 07/29/17 20:06 80 MG Insulin Glargine (Lantus Solostar Pen) SEE PROTOCOL TEXT BID SC 07/28/17 21:00 08/27/17 20:59 07/29/17 08:03 9 UNITS Lisinopril (Zestril Tab) 5 mg QAM PO 07/30/17 09:00 08/29/17 08:59 07/30/17 08:52 5 MG Bumetanide (Bumex Tab) 2 mg QAM PO 07/31/17 09:00 08/30/17 08:59 (Mayte Martin PA-C) Objective Vital Signs Date Time Temp Pulse Resp B/P (MAP) Pulse Ox O2 Delivery O2 Flow Rate FiO2 07/30/17 12:00 Room Air 07/30/17 11:06 Room Air 07/30/17 10:30 36.8 82 16 110/76 (87) 93 Room Air 07/30/17 08:00 Room Air 07/30/17 07:17 36.5 77 12 121/83 (96) 93 07/30/17 06:48 36.4 79 16 118/74 (89) 92 Room Air 07/30/17 04:03 Room Air 07/30/17 03:47 36.3 77 16 94/62 (73) 94 Room Air 07/30/17 00:00 Room Air 07/29/17 23:31 36.7 83 20 90/56 (67) 93 Room Air 07/29/17 20:16 36.6 79 18 99/63 (75) 92 Room Air 07/29/17 20:00 Room Air 07/29/17 16:47 37.1 77 18 117/75 (89) 96 Nasal Cannula 3.0 07/29/17 16:00 Room Air (Mayte Martin PA-C) Physical Exam General Appearance: WD/WN, no apparent distress, + obese Eyes: sclerae normal ENT: hearing grossly normal Neck: supple, no JVD, trachea midline Respiratory/Chest: no respiratory distress, no accessory muscle use, + rales ( minimal bilateral bases) Cardiovascular: regular rate, rhythm, no gallop, no murmur Abdomen: normal bowel sounds, non tender, soft Extremities: no pedal edema Neurologic/Psychiatric: alert, oriented x 3 Skin: normal color, warm/dry (Mayte Martin PA-C) Laboratory Results Last 24 Hours Test 07/29/17 16:25 07/29/17 20:05 07/30/17 05:21 07/30/17 07:26 Bedside Glucose 95 mg/dl 98 mg/dl 124 mg/dl White Blood Count 7.21 K/uL Red Blood Count 4.77 M/uL Hemoglobin 14.1 g/dL Hematocrit 42.6 % Mean Corpuscular Volume 89.3 fL Mean Corpuscular Hemoglobin 29.6 pg Mean Corpuscular Hemoglobin Concent 33.1 g/dl RDW Standard Deviation 45.2 fL RDW Coefficient of Variation 13.7 % Platelet Count 166 K/uL Mean Platelet Volume 11.1 fL Sodium Level 141 mmol/L Potassium Level 3.7 mmol/L Chloride Level 105 mmol/L Carbon Dioxide Level 29 mmol/L Anion Gap 7.0 mmol/L Blood Urea Nitrogen 28 mg/dl Creatinine 1.40 mg/dl Est Creatinine Clear Calc Drug Dose 62.5 ml/min Estimated GFR () 61.5 Estimated GFR (Non- 53.1 BUN/Creatinine Ratio 20.0 Random Glucose 115 mg/dl Calcium Level 8.6 mg/dl Magnesium Level 2.3 mg/dl Test 07/30/17 11:09 Bedside Glucose 160 mg/dl (Mayte Martin, PAVenkataC) Assessment and Plan Mr. Vee is a 61 y/o male with PMHx of Combined Systolic and Diastolic CHF, Paroxysmal A Fib, HTN, HLD, CAD, S/P Pacemaker, COPD, T2DM, and CKD Stage III who presents for acute hypoxic resp. failure due to acute systolic/diastolic CHF exacerbation. Acute Hypoxic Respiratory Failure 2/2 Acute on Chronic Systolic and Diastolic CHF: IMPROVING - Diuresed for negative balance of 5 L - ambulating on RA with appropriate saturations - Echo - EF 30-35%, grade II diastolic dysfunction - Lasix D/C'd and Bumex 2 mg daily instituted per cardiology - Continue fluid restriction, daily weights, and I&Os - Cardiology following - recommendations reviewed - institute Bumex and recommend BiV pacer placement sooner Paroxysmal A Fib with RVR: NSR with PVCs - Rate Controlled - No AC - Coreg 25 mg BID with Lopressor 5 mg IV PRN Hyperglycemia with T2DM: A1c 6.8 - Initially placed on insulin gtt and pharmacy following for glycemic control - Lantus and Novolog SSI Hyperkalemia: RESOLVED - Lisinopril was reinstituted - be mindful of possible contributor ART on CKD Stage III: RESOLVED - Baseline Cr 1.6 - currently 1.4 CAD/HTN/HLD: STABLE: - ASA 81 mg daily - Atorvastatin 80 mg daily - Lisinopril 5 mg daily COPD without Exacerbation: - Nebulizers PEARL and PRN DVT Prophylaxis: Heparin 5000 units SC Q8H Code Status: FULL RESUSCITATION Disposition: - Would like to diurese him as much as possible prior to D/C - monitor heart rhythm overnight - poss. D/C tomorrow - Requested Rx for nitroglycerin tablets on D/C Discharge planning: home (Mayte Martin PA-C) Reviewed: Pt Seen/Exam by Me (Mariana Arzate, ) History Pt is feeling improved. Denies SOB or chest pain. Tolerating PO without issue. Agree with HPI/ROS as noted. (Mariana Arzate, DO) General Appearance: no apparent distress, obese Respiratory: no respiratory distress, decreased breath sounds, crackles (bases) Cardiovascular: normal peripheral pulses, regular rate, rhythm Gastrointestinal: non tender, soft Extremities: non-tender, no pedal edema Neurologic/Psychiatric: alert, oriented x 3 Skin Characteristics: normal color, warm/dry (Mariana Arzate, ) Assessment/Plan Agree with plan as outlined above Ongoing diuresis as per cardiology\ CXR is improving Pt needs biventricular pacer, planning for 09/17 Advised that this needs to be done BRITT, however pt states that he needs to work for 4 weeks prior and cannot do it sooner Trop neg x2 ECHO with EF 30-40% and multiple areas of akinesis (Mariana Arzate, DO)
[2017-07-30] MEDS: ATORVASTATIN 40 MG TAB PO SCH (21:31)
[2017-07-31] MEDS: ACETAMINOPHEN 325 MG TAB PO PRN (02:24)
[2017-07-31 03:23] VITALS: BP 93/64; PULSE 61; TEMP 36.6; O2SAT 92
[2017-07-31] MEDS: HEPARIN SOD 5000 UNIT/0.5 ML CARP SQ SCH (05:31)
[2017-07-31 06:39] LABS: BUN/CREATININE RATIO 19.4 (10-20); CALCIUM 9.1 mg/dl (8.5-10.1); CREATININE 1.2 mg/dl (0.60-1.40); MAGNESIUM 2.4 mg/dl (1.8-2.4); POTASSIUM 3.8 mmol/L (3.5-5.1)
[2017-07-31 08:04] VITALS: BP 107/70; PULSE 68; TEMP 36.5; O2SAT 92
--- NOTE | 2017-07-31 08:57 | Cardiology Follow-Up ---
Subjective General Date of Service: Jul 31, 2017. Pt evaluation today including: conversation w/ patient, chart review, lab review, review of studies History of Present Illness The patient is a 61 year old male Allergies Coded Allergies: Budesonide (Verified Allergy, Unknown, TACHYCARDIA, SOB, 07/28/17) Carbamazepine (Verified Allergy, Unknown, TACHYCARDIA, PANIC ATTACK, ) Cyclobenzaprine (Verified Allergy, Unknown, UNK, 07/28/17) Doxycycline (Verified Allergy, Unknown, ABD PAIN, 07/28/17) Fluticasone (Verified Allergy, Unknown, UNK, 07/28/17) Formoterol (Verified Allergy, Unknown, TACHYCARDIA, SOB, 07/28/17) Salmeterol (Verified Allergy, Unknown, ANAPHYLAXIS, 07/28/17) Sodium Propionate (Verified Allergy, Unknown, SHORTNESS OF BREATH, 07/28/17) Digoxin (Verified Adverse Reaction, Unknown, BACK AND STOMACH PAIN, 07/28/17 ) Metformin (Verified Adverse Reaction, Unknown, MUSCLE ACHES IN BVACK AND KIDNEYS, 07/28/17) Social History Smoking Status: Former Smoker Hx Tobacco Use In Past Year?: No Hx Alcohol Use - Type And Amou: No Hx Substance Use - Type And Am: No Problem List Medical Problems: (1) Diabetes mellitus out of control Status: Acute (2) Hyperkalemia Status: Acute (3) Hypotension Status: Acute (4) Left sided chest pain Status: Acute (5) Pulmonary edema Status: Acute (6) Right kidney mass Status: Acute Review of Systems Respiratory: + cough, + sputum, No shortness of breath, No dyspnea on exertion , No dyspnea at rest Cardiac: No chest pain, No edema, No palpitations Physical Exam Vital Signs Last Vital Signs Documentation Date Time Temp Pulse Resp B/P (MAP) Pulse Ox O2 Delivery O2 Flow Rate FiO2 07/31/17 08:04 36.5 68 16 107/70 (82) 92 Room Air 07/29/17 16:47 3.0 07/28/17 14:35 50 Physical Exam Constitutional: General Apperance: overweight Level of Distress: NAD Psychiatric: Mental Status: active & alert Eyes: EOM: EOMI Lungs: Auscultation: no wheezing, no rales/crackles, no rhonchi Cardiovascular: Heart Auscultation: RRR, no murmurs, no rubs, no gallops Peripheral Pulses: Bruits: none appreciated Abdomen: Bowel Sounds: normal Inspection & Palpation: soft, no tenderness, guarding & rebound, no masses Extremities: no edema Assessment and Plan Assessment and Plan 1) Acute on chronic Systolic CHF 2) Severe NICM; LVEF 15%, LVEDV 500 cc 3) Severe MR by echo 04/04 ([facility]) 4) Severe LM and Prox LAD dz--turned down by CT sx at [facility] 5) Renal cell CA--obsercation, Sx on hold per [facility] urology 6) ICD with patient delaying upgrade to BiV ICD until end of season 7) ANDREW using CPAP 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 Will make that appt and BMP the same day (can't get blood work sooner). Take scale with him on the road; daily weights Laboratory Results Last 24 Hours Test 07/30/17 11:09 07/30/17 16:08 07/30/17 20:21 07/31/17 05:17 Bedside Glucose 160 mg/dl 130 mg/dl 122 mg/dl Sodium Level 139 mmol/L Potassium Level 3.8 mmol/L Chloride Level 106 mmol/L Carbon Dioxide Level 27 mmol/L Anion Gap 6.0 mmol/L Blood Urea Nitrogen 23 mg/dl Creatinine 1.20 mg/dl Est Creatinine Clear Calc Drug Dose 73.0 ml/min Estimated GFR () 74.1 Estimated GFR (Non- 64.0 BUN/Creatinine Ratio 19.4 Random Glucose 117 mg/dl Calcium Level 9.1 mg/dl Magnesium Level 2.4 mg/dl Test 07/31/17 06:26 Bedside Glucose 151 mg/dl
[2017-07-31] MEDS ORDERED: BUMETANIDE 1 MG TAB PO SCH (09:00)
[2017-07-31] MEDS: CARVEDILOL 25 MG TAB PO SCH (09:04)
[2017-07-31] MEDS: ASPIRIN 81 MG ECTAB PO SCH (09:04)
[2017-07-31] MEDS: CYANOCOBALAMIN 500 MCG TAB (VIT B-12) PO SCH (09:04)
[2017-07-31] MEDS: LISINOPRIL 5 MG TAB PO SCH (09:05)
[2017-07-31] MEDS: INSULIN ASPART 100 UNITS/ML 3 ML PEN SC SCH ×2 (09:07→12:03)
[2017-07-31] MEDS: INSULIN GLARGINE SOLOSTAR 100 UNITS/ML 3 ML PEN SC SCH (09:08)
[2017-07-31] MEDS: CHOLECALCIFEROL 1000 INTER.UNIT TAB PO SCH (09:09)
[2017-07-31] MEDS ORDERED: BMX1 PO (11:27)
[2017-07-31] MEDS ORDERED: NTRSLP4 SL (11:27)
--- NOTE | 2017-07-31 11:53 | Discharge Instructions ---
Discharge Instructions Date of Service Jul 31, 2017. Admission Reason for Admission: Acute On Chronic Systolic Heart Failure Discharge Discharge Diagnosis / Problem: Acute on Chronic Systolic and Diastolic CHF Discharge Goals Goal(s): Decrease discomfort, Improve function, Increase independence Activity Recommendations Activity Limitations: resume your previous activity . Instructions / Follow-Up Instructions / Follow-Up Acute Hypoxic Respiratory Failure due to Acute on Chronic Systolic and Diastolic CHF: - Stop your Lasix (water pill). You will be started on Bumex once a day. this medication is a different type of water pill. - Recommend to monitor your weight daily and to travel with a scale. Also be mindful of how much fluid you take in. - Please keep your appointment with your heart doctor to have blood work and to discuss medication adjustments - Also keep you appointment for your pacer. If this appointment can be moved up please do this. Follow-Up: - Please follow-up with your heart doctor as previously established. Call your Primary Care doctor if any of the following symptoms or problems start or get worse: * Shortness of breath or difficulty breathing * Wake up at night short of breath * Chest pain * Cough * Swelling of your hands, feet, or legs * More fatigued or tired with your normal activity * Palpitations - sudden fast heart beats WEIGHT * Weigh yourself every morning after using the bathroom. * Use the same scale. * Wear the same amount of clothing. * Write your weight down on a chart. * Call your Primary Care doctor if you gain more than 2-3 pounds in 1-2 days. MEDICATIONS * Use this discharge instruction sheet for medication instructions. * Take your medications at the time your doctor ordered. * Do not skip a dose of your medicines. * If you miss a dose of medicine, take it as soon as possible, but DO NOT DOUBLE A DOSE. * Read your medicine information when you get home. * Know all of the side effects of your medicine. If in doubt, ask your pharmacist * Call your Primary Care doctor's office if you have any side effects. * Be sure all of your doctors know what medicine and herbs you take (including cold, flu, and herbal medicine). Take the following with you to your follow-up doctor appointments: * Weight Chart * Medication List * List of questions Do not drink excessive alcohol, beer or wine. Current Hospital Diet Patient's current hospital diet: AHA Diet (Heart Healthy), Diabetes Type 2 Diet Discharge Diet Recommended Diet: AHA Diet (Heart Healthy), Diabetes Type 2 Diet Fluid Restriction: 1500 ml (6 cups) Pending Studies Studies pending at discharge: no Laboratory Results Hemoglobin A1c Test 07/28/17 06:50 Range/Units Estimated Average Glucose 148 mg/dl Hemoglobin A1c 6.8 H 4.5-5.6 % Medical Emergencies . Who to Call and When: Call 911 or go to the Emergency Room if: * If at any time you feel your situation is an emergency * You have tightness or pain in your chest that does not go away with rest or Nitroglycerin * You are very short of breath even with rest . Non-Emergent Contact Non-Emergency issues call your: Primary Care Provider Call Non-Emergent contact if: you have a fever, your pain is concerning you, you have any medication questions . . "Provider Documentation" section prepared by Mayte Martin. . VTE Core Measure Inpt VTE Proph given/why not?: Unfractionated heparin SQ
[2017-07-31 11:56] VITALS: BP 102/72; PULSE 78; TEMP 36.3; O2SAT 94
[2017-07-31 12:03] VITALS: BP 102/72; PULSE 78; TEMP 36.3; O2SAT 94
--- NOTE | 2017-07-31 18:47 | Discharge Summary ---
Discharge Summary Date of Service Jul 31, 2017. (Mayte Martin PA-C) Discharge Summary Admission Date: Jul 28, 2017 at 08:33 Discharge Date: Jul 31, 2017 Discharge Disposition: Home Principal Diagnosis: Acute Respiratory Failure due to Acute Diastolic/Systolic CHF Problems/Secondary Diagnoses: 1. Combined Diastolic and Systolic CHF 2. Paroxysmal Atrial Fibrillation 3. HTN 4. HLD 5. CAD 6. COPD 7. T2DM 8. CKD Stage III 9. S/P Pacer Procedures: CHEST ONE VIEW PORTABLE FINDINGS: Permanent bipolar cardiac pacemaker/defibrillator right mild cardia megaly. Fullness of pulmonary vasculature. IMPRESSION: Pulmonary edema CHEST ONE VIEW PORTABLE FINDINGS: Left-sided implanted cardiac defibrillator with leads to the right atrium and right ventricular apex. Cardiac silhouette remains mildly enlarged. Atherosclerosis of aortic arch. Decreased prominence of pulmonary vasculature with increased pulmonary vascular distinctness. Decreased perihilar and bibasilar opacities. No large effusion or pneumothorax. Osseous structures normal. Upper abdomen normal. IMPRESSION: 1. Significant interval improvement in pulmonary edema and volume overload. 2. Mild cardiomegaly. ECHOCARDIOGRAM: * Technically limited study despite use of definity ultrasound contrast. * 1. Severely dilated LV. Moderate to severe LV dysfunction. LVEF 30-35%. Mid to apical anterior, septal akinesis. Akinetic apex. * 2. Normal RV size and function * 3. Grade II diastolic dysfunction. * 4. Mild mitral regurgitation. 5. Compared with prior study on 12/02/2016: No significant change Consultations: 1. Cardiology (Mayte Martin PA-C) Medication Reconciliation New Medications: Bumetanide (Bumetanide) 1 Mg Tab 2 MG PO QAM for 30 Days, #60 TAB Continued Medications: Acetaminophen/Codeine (Tylenol W/Codeine #3) 300 Mg/30 Mg Tab 1 TAB PO Q6 PRN for Pain, TAB Albuterol Hfa (Ventolin Hfa) 200 Puffs/65642 Mcg Aers 2-4 PUFFS INH Q6H PRN for Wheezing, #1 INHALER Aspirin (Aspirin 81) 81 Mg Tab 81 MG PO QAM Atorvastatin (Lipitor) 80 Mg Tab 80 MG PO DAILY, TAB Carvedilol (Coreg) 25 Mg Tab 25 MG PO BID Cholecalciferol (Vitamin D3) 1,000 Unit Tab 1000 UNITS PO BID Coenzyme Q10 (Ubidecarenone) (Co Q10) 50 Mg Cap 50 MG PO QAM Cyanocobalamin (Vitamin B-12) 500 Mcg Tab 500 MCG PO QAM, TAB Glimepiride (Amaryl) 2 Mg Tab 2 MG PO DAILY, TAB Ipratropium-Albuterol (Combivent Respimat) 1 Aer Aer #4 Lisinopril (Zestril) 5 Mg Tab 5 MG PO QAM, TAB [place]-3 Fatty Acids (Fish Oil) 1 Cap Cap 1 CAP PO QAM Discontinued Medications: Furosemide (Furosemide) 40 Mg Tab 60 MG PO UD UNSURE OF CURRENT DOSE. (LAST KNOWN DOSE IS 60MG) Discharge Exam Review of Systems: Constitutional: No fever, No chills ENT: No nasal symptoms, No sore throat Respiratory: + cough, No wheezing, No dyspnea on exertion, No dyspnea at rest Cardiovascular: No chest pain, No palpitations Abdomen: No pain, No nausea, No vomiting, No diarrhea, No constipation Musculoskeletal: No swelling, No calf pain Genitourinary - Male: No dysuria Hematologic / Lymphatic: No abnormal bleeding/bruising Integumentary: No rash Physical Exam: General Appearance: WD/WN, no apparent distress, + obese Eyes: sclerae normal ENT: hearing grossly normal Neck: supple, no JVD, trachea midline Respiratory/Chest: no respiratory distress, no accessory muscle use, + crackles (minimal in L base) Cardiovascular: regular rate, rhythm, no gallop, no murmur Abdomen / GI: normal bowel sounds, non tender, soft Extremities: no calf tenderness, no pedal edema Neurologic/Psychiatric: alert, oriented x 3 Skin: normal color, warm/dry (Mayte Martin, PA-C) Hospital Course ADMISSION: This is a 61 y/o male with a history of combined systolic and diastolic congestive heart failure, paroxysmal a-fib, HTN, HLD, CAD, s/p pacemaker, COPD, DM II, and CKD stage III who presented to the ED on 07/28 with acute hypoxic respiratory failure. The patient states that he has been experiencing dyspnea and chest heaviness for the last week that has been getting progressively worse. He has been taking his home Combivent and nebulizers at home with no relief. This morning the patient became more acutely dyspneic with associated chills, sweats, and increased chest "soreness" . The patient had also noted a productive cough this morning with brown sputum. The patient was placed on CPAP and given 9 doses of nitro from EMS en route to [facility]. The patient denies fevers, palpitations, claudication, wheezing , nausea, vomiting, abdominal pain, dysuria, hematuria, urinary retention, paralysis, weakness, numbness and tingling. HOSPITAL COURSE: Mr. Vee is a 61 y/o male admitted for acute hypoxic respiratory failure 2/2 acute mixed diastolic/systolic CHF. Patient initially required BiPAP but was adequately weaned to RA with adequate saturations. He diuresed 5+ L of fluid. Updated echocardiogram showed EF 30-35% with multiple areas of hypokinesis and grade II diastolic dysfunction. Cardiology was consulted and decision to switch from Lasix to Bumex was initiated. Recommendations given to have BiV pacer placed sooner than planned but may not be possible due to patient's work schedule. During hospitalization patient did have runs of non-sustained VT ranging from 4-8 beats. Initially he presented with A Fib RVR but was NSR on discharge. Also, noted to have ART on CKD which resolved with diuresis. Plan is for patient to follow-up with cardiology as outpatient and consider [facility] institution. Patient is optimal for D/C with outpatient follow-up. Total Time Spent: Greater than 30 minutes This includes examination of the patient, discharge planning, medication reconciliation, and communication with other providers. (Mayte Martin, JULIANAC) Discharge Instructions Please refer to the electronic Patient Visit Report (Discharge Instructions) for additional information. (Mayte Martin, JULIANAC) Additional Copies To Karen Pablo M.D. Reviewed: Pt Seen/Exam by Me (Mariana Arzate, ) History Pt continues to feel improved. No further SOB. No chest pain. Tolerating PO without issues. Has been ambulating without issue. Agree with HPI/ROS as noted. (Mariana Arzate DO) General Appearance: WD/WN, no apparent distress Respiratory: normal breath sounds, no respiratory distress Cardiovascular: normal peripheral pulses, regular rate, rhythm Gastrointestinal: non tender, soft Extremities: non-tender, no pedal edema Neurologic/Psychiatric: alert, normal mood/affect, oriented x 3 Skin Characteristics: normal color, warm/dry (Mariana Arzate, DO) Assessment/Plan Agree with plan as outlined above Ongoing diuresis as per cardiology and will f/u as outpt CXR is improving Pt needs biventricular pacer, planning for 09/17 Advised that this needs to be done BRITT, however pt states that he needs to work for the time as 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
== END 2017-07-31 13:15 | disposition home or self-care (01) | DRG 291 ==
LOC: EDBD 06:33 → C.EDB 06:36 → C.2T 08:33 → ENRESERV 08:57
PROVIDERS: ADMIT Internal Medicine; ATTEND Family Medicine
DX: I50.23 Acute on chronic systolic (congestive) heart failure (principal); J96.01 Acute respiratory failure with hypoxia; J81.0 Acute pulmonary edema; E11.9 Type 2 diabetes mellitus without complications; E87.5 Hyperkalemia; N18.3 Chronic kidney disease, stage 3 (moderate); I12.9 Hypertensive chronic kidney disease with stage 1 through stage 4 chronic kidney disease, or unspecified chronic kidney disease; E78.5 Hyperlipidemia, unspecified; I48.0 Paroxysmal atrial fibrillation; Z87.891 Personal history of nicotine dependence; Z95.0 Presence of cardiac pacemaker

== ENCOUNTER 2018-03-27 09:08 | Inpatient (IN) | payer OTHER ==
[2018-03-27] VITALS (7 sets, daily range): BP systolic 118–128; BP diastolic 70–82; PULSE 68–93; TEMP 36.5; O2SAT 3–96; Ht 172.7 cm; Wt 110.8 kg
[~2018-03-27] VITALS: Ht 172.7 cm; Wt 110.8 kg
[~2018-03-27 09:08] MED LIST changes: -ACET-749 PO; +ACET300T3 PO; -ALBUAER19 INH; +ATOR-26 PO; -ATOR10TA88 PO; +BMX1 PO; -GLIM1TAB2 PO; +GLIM2TAB PO; +IPRA1AER2; -LSX40 PO; -OXYC-57 PO; -TIOT1AER2 INH; +VNTHFA/IN INH
[2018-03-27] MEDS ORDERED: CARBOHYDRATES FOR HYPOGLYCEMIA PO PRN (11:00)
[2018-03-27] MEDS ORDERED: ALBUTEROL HFA 8 GM INHALER INH PRN (11:00)
[2018-03-27] MEDS ORDERED: DEXTROSE 50% 50 ML SYR IV PRN (11:00)
[2018-03-27] MEDS ORDERED: GLUCOSE 10 TABS/TUBE PO PRN (11:00)
[2018-03-27] MEDS ORDERED: GLUCOSE 40% GEL 15 GM TUBE PO PRN (11:00)
[2018-03-27] MEDS ORDERED: GLUCAGON FOR INJ 1 MG VIAL SQ PRN (11:00)
[2018-03-27] MEDS ORDERED: ICU PROTOCOL FOR HYPERGLYCEMIA PRN (11:00)
--- NOTE | 2018-03-27 11:34 | History and Physical ---
History & Physical Date & Time of Service: March 27, 2018 at 11:19 Chief Complaint: Sepsis,Resp Failure Primary Care Physician: Karen Pablo M.D. History of Present Illness Source: patient 61 y/o male with a history of combined CHF, paroxysmal AF, HTN, HLD, CAD, pacemaker, COPD, DM II, CKD III, renal mass. The pt presents as a direct admission from [place]. He was initially evaluated in the [place] ER for respiratory distress due to CHF exacerbation with pulmonary edema. As the pt is managed by specialists - including cardiology - at [facility], a decision was made to transfer him for further management. On arrival to the ICU at [facility], he appears stable and any respiratory distress has resolved. He denies CP, a productive cough, nausea, vomiting or fevers. He confirms he has improved markedly from the time he presented at [place]. Initial labs are notable for an elevated troponin and a mildly elevated lactic acid. Past Medical/Surgical History 1) L renal mass - being followed at [place] 2) Combined CHF - Grade II diastolic dysfunction - EF 30-35% 3) COPD 4) Obese 5) HTN 6) HPL 7) DM II 8) Pacemaker - initial placement 2005 - revised 07/2017 9) CKD III 10) Multiple admits due to multifactorial hypoxic respiratory failure Family History Diabetes mellitus Heart disease Hypertension Social History Smoking Status: Former Smoker Drug Use: none Marital Status: Housing status: lives with family Occupational Status: employed Allergies Coded Allergies: Budesonide (Verified Allergy, Unknown, TACHYCARDIA, SOB, 07/28/17) Carbamazepine (Verified Allergy, Unknown, TACHYCARDIA, PANIC ATTACK, ) Cyclobenzaprine (Verified Allergy, Unknown, UNK, 07/28/17) Doxycycline (Verified Allergy, Unknown, ABD PAIN, 07/28/17) Fluticasone (Verified Allergy, Unknown, UNK, 07/28/17) Formoterol (Verified Allergy, Unknown, TACHYCARDIA, SOB, 07/28/17) Salmeterol (Verified Allergy, Unknown, ANAPHYLAXIS, 07/28/17) Sodium Propionate (Verified Allergy, Unknown, SHORTNESS OF BREATH, 07/28/17) Digoxin (Verified Adverse Reaction, Unknown, BACK AND STOMACH PAIN, 07/28/17 ) Metformin (Verified Adverse Reaction, Unknown, MUSCLE ACHES IN BVACK AND KIDNEYS, 07/28/17) Home Medications Scheduled Aspirin (Aspirin 81), 81 MG PO QAM Atorvastatin (Lipitor), 80 MG PO DAILY Bumetanide (Bumetanide), 2 MG PO QAM Carvedilol (Coreg), 25 MG PO BID Cholecalciferol (Vitamin D3), 1,000 UNITS PO BID Coenzyme Q10 (Ubidecarenone) (Co Q10), 50 MG PO QAM Cyanocobalamin (Vitamin B-12), 500 MCG PO QAM Glimepiride (Amaryl), 2 MG PO DAILY Lisinopril (Zestril), 5 MG PO QAM [place]-3 Fatty Acids (Fish Oil), 1 CAP PO QAM Scheduled PRN Acetaminophen/Codeine (Tylenol W/Codeine #3), 1 TAB PO Q6 PRN for Pain Albuterol Hfa (Ventolin Hfa), 2-4 PUFFS INH Q6H PRN for Wheezing Miscellaneous Medications Ipratropium-Albuterol (Combivent Respimat) Review of Systems Constitutional: No fever, No chills, No sweats Eyes: No worsening of vision ENT: No hearing loss, No unusual epistaxis, No nasal symptoms Respiratory: + shortness of breath, + dyspnea on exertion, + dyspnea at rest Cardiovascular: + orthopnea, No chest pain Abdomen: No pain, No nausea, No vomiting Musculoskeletal: No joint pain Genitourinary - Male: No hematuria, No dysuria Neurologic: No memory loss, No paralysis, No weakness Psychiatric: No depression symptoms Endocrine: No fatigue Hematologic / Lymphatic: No abnormal bleeding/bruising Integumentary: No rash Allergic / Immunologic: No environmental allergies Physical Exam Vital Signs Date Time Temp Pulse Resp B/P (MAP) Pulse Ox O2 Delivery O2 Flow Rate FiO2 03/27/18 10:48 36.5 77 18 118/79 3 Nasal Cannula 4.0 General Appearance: WD/WN, no apparent distress Head: normocephalic Eyes: normal inspection ENT: normal ENT inspection, pharynx normal Neck: supple, + pertinent finding (Cannot evaluate JVD due to habitus) Respiratory/Chest: chest non-tender, + pertinent finding (Crackles at bases BL - no wheezing - poor air movement) Abdomen/GI: normal bowel sounds, non tender, soft Back: normal inspection, no CVA tenderness Extremities/Musculoskelatal: normal inspection, no calf tenderness, + pedal edema 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 The pt presents as a direct admission from [place]. He was initially evaluated in the [place] ER for respiratory distress due to CHF exacerbation with pulmonary edema. As the pt is managed by specialists - including cardiology - at [facility], a decision was made to transfer him for further management. On arrival to the ICU at [facility], he appears stable and any respiratory distress has resolved. He denies CP, a productive cough, nausea, vomiting or fevers. He confirms he has improved markedly from the time he presented at [place]. Initial labs are notable for an elevated troponin and a mildly elevated lactic acid. 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
[2018-03-27 11:46] LABS: BASO % 0.1 %; BASO ABS # 0.01 K/uL (0-0.2); EOS % 0.1 %; EOS ABS # 0.01 K/uL (0-0.5); HEMATOCRIT 44.4 % (42-52); HEMOGLOBIN 14.8 g/dL (14.0-18.0); IG# 0.07 K/uL (0.00-0.02); LYMPH % 8.4 %; LYMPH ABS # 0.85 K/uL (1.2-3.4); MEAN CELL VOLUME 94.1 fL (80-100); MEAN CORPUSCULAR HEMOGLOBIN 31.4 pg (25-34); MEAN CORPUSCULAR HGB CONC 33.3 g/dl (32-36); MEAN PLATELET VOLUME 10.1 fL (7.4-10.4); MONO % 2.5 %; MONO ABS # 0.25 K/uL (0.11-0.59); NEUT % 88.2 %; NEUT ABS # 8.97 K/uL (1.4-6.5); PLATELET COUNT 167 K/uL (130-400); RED CELL DISTRIBUTION WIDTH CV 13.7 % (11.5-14.5); RED CELL DISTRIBUTION WIDTH SD 47.4 fL (36.4-46.3); WHITE BLOOD COUNT 10.16 K/uL (4.8-10.8)
[2018-03-27 12:07] LABS: INR 1.1 (0.9-1.1); PTT PATIENT 23.5 SECONDS (21.0-31.0)
--- NOTE | 2018-03-27 12:09 | DIAGNOSTIC IMAGING REPORT ---
CHEST ONE VIEW PORTABLE CLINICAL HISTORY: CHF dyspnea COMPARISON STUDY: 2017 FINDINGS: Moderate stable cardiomegaly. Permanent implantable cardiac pacemaker/defibrillator. Increase in pulmonary vasculature is compared to the prior study. Diaphragms are smooth. The costophrenic angles are sharp. IMPRESSION: Mild congestive heart failure. The above report was generated using voice recognition software. It may contain grammatical, syntax or spelling errors. Electronically signed by: Néstor Lux M.D. 03/27/2018 12:08 PM Dictated Date/Time: 03/27/2018 12:07 PM
[2018-03-27 12:15] LABS: ALBUMIN 3.7 gm/dl (3.4-5.0); CALCIUM 8.5 mg/dl (8.5-10.1); CREATININE 1.81 mg/dl (0.60-1.40); POTASSIUM 4.5 mmol/L (3.5-5.1)
[2018-03-27 12:27] LABS: PHOSPHORUS 3.3 mg/dl (2.5-4.9); TOTAL PROTEIN 7.1 gm/dl (6.4-8.2)
--- NOTE | 2018-03-27 12:29 | Cardiology Consultation ---
Cardiology Consultation Date of Consultation: March 27, 2018. Family History Diabetes mellitus Heart disease Hypertension Social History Smoking Status: Former Smoker History of Alcohol Use: No Review of Systems Respiratory: + cough, + sputum Allergies Coded Allergies: Budesonide (Verified Allergy, Unknown, TACHYCARDIA, SOB, 07/28/17) Carbamazepine (Verified Allergy, Unknown, TACHYCARDIA, PANIC ATTACK, ) Cyclobenzaprine (Verified Allergy, Unknown, UNK, 07/28/17) Doxycycline (Verified Allergy, Unknown, ABD PAIN, 07/28/17) Fluticasone (Verified Allergy, Unknown, UNK, 07/28/17) Formoterol (Verified Allergy, Unknown, TACHYCARDIA, SOB, 07/28/17) Salmeterol (Verified Allergy, Unknown, ANAPHYLAXIS, 07/28/17) Sodium Propionate (Verified Allergy, Unknown, SHORTNESS OF BREATH, 07/28/17) Digoxin (Verified Adverse Reaction, Unknown, BACK AND STOMACH PAIN, 07/28/17 ) Metformin (Verified Adverse Reaction, Unknown, MUSCLE ACHES IN BVACK AND KIDNEYS, 07/28/17) Medications Current Inpatient Medications Medications (Trade) Dose Ordered Sig/Pearl Route Start Time Stop Time Status Last Admin Dose Admin Miscellaneous Information (Icu Protocol For Hyperglycemia) 1 ea PRN PRN N/A 03/27/18 11:00 03/29/18 10:59 UNV Insulin Human Regular (novoLIN-R) SLIDING SCALE IF C... ACHS SC 03/27/18 11:00 04/26/18 10:59 UNV Glucose (Glucose 40% Gel) 15-30 GRAMS 15 GRAMS... UD PRN PO 03/27/18 11:00 04/26/18 10:59 UNV Glucose (Glucose Chew Tab) 4-8 Tablets 4 Tabl... UD PRN PO 03/27/18 11:00 04/26/18 10:59 UNV Dextrose (Dextrose 50% 50ML Syringe) 25-50ML 25ML FOR ... UD PRN IV 03/27/18 11:00 04/26/18 10:59 UNV Glucagon (Glucagon Inj) 1 mg UD PRN SQ 03/27/18 11:00 04/26/18 10:59 UNV Carbohydrates (Carbohydrates For Hypoglycemia) 15-30 GRAMS 15 grams if BSG 54-69... UD PRN PO 03/27/18 11:00 04/26/18 10:59 UNV Acetaminophen/ Codeine Phosphate (Tylenol w/ Codeine #3 Tab) 1 tab Q6 PRN PO 03/27/18 11:00 04/26/18 10:59 UNV Albuterol (Ventolin Hfa Inhaler) 2 puffs Q6H PRN INH 03/27/18 11:00 04/26/18 10:59 UNV Aspirin (Ecotrin Tab) 81 mg QAM PO 03/28/18 09:00 04/27/18 08:59 UNV Atorvastatin Calcium (Lipitor Tab) 80 mg DAILY PO 03/28/18 09:00 04/27/18 08:59 UNV Bumetanide (Bumex Tab) 2 mg QAM PO 03/28/18 09:00 04/27/18 08:59 UNV Carvedilol (Coreg Tab) 25 mg BID PO 03/27/18 21:00 04/26/18 20:59 UNV Cyanocobalamin (Vitamin B-12 Tab) 500 mcg QAM PO 03/28/18 09:00 04/27/18 08:59 UNV Lisinopril (Zestril Tab) 5 mg QAM PO 03/28/18 09:00 04/27/18 08:59 UNV Cholecalciferol (Vitamin D Tab) 1,000 inter.unit BID PO 03/27/18 21:00 04/26/18 20:59 UNV Gabapentin (Neurontin Tab) 100 mg TID PO 03/27/18 14:00 04/26/18 13:59 UNV Heparin Sodium (Porcine) (Heparin Sq 5000 Unit/0.5ml) 5,000 unit Q8 SQ 03/27/18 14:00 04/26/18 13:59 UNV Physical Exam Vital Signs Past 12 Hours Date Time Temp Pulse Resp B/P (MAP) Pulse Ox O2 Delivery O2 Flow Rate FiO2 03/27/18 11:30 73 94 40 03/27/18 10:48 36.5 77 18 118/79 3 Nasal Cannula 4.0 Data Laboratory Results: Last 24 Hours Test 03/27/18 10:46 03/27/18 11:37 White Blood Count 10.16 K/uL Red Blood Count 4.72 M/uL Hemoglobin 14.8 g/dL Hematocrit 44.4 % Mean Corpuscular Volume 94.1 fL Mean Corpuscular Hemoglobin 31.4 pg Mean Corpuscular Hemoglobin Concent 33.3 g/dl Platelet Count 167 K/uL Mean Platelet Volume 10.1 fL Neutrophils (%) (Auto) 88.2 % Lymphocytes (%) (Auto) 8.4 % Monocytes (%) (Auto) 2.5 % Eosinophils (%) (Auto) 0.1 % Basophils (%) (Auto) 0.1 % Neutrophils # (Auto) 8.97 K/uL Lymphocytes # (Auto) 0.85 K/uL Monocytes # (Auto) 0.25 K/uL Eosinophils # (Auto) 0.01 K/uL Basophils # (Auto) 0.01 K/uL RDW Standard Deviation 47.4 fL RDW Coefficient of Variation 13.7 % Immature Granulocyte % (Auto) 0.7 % Immature Granulocyte # (Auto) 0.07 K/uL Imaging: EKG: Telemetry reviewed: Assessment & Plan 62 yo male presents as a transfer from [place] with respiratory failure 2/2 presumed acute on chronic heart failure. PMH; Significant for non-ischemic cardiomyopathy, CAD, HTN, T2DM, ANDREW, CKD3 Assessment; The patient was life flighted to [facility] from [place] on BIPAP. Upon arrival, the patient's condition greatly improved--hemodynamically stabel and no longer requiring BIPAP. Plan; Draw initial labs and monitor in the ICU. Plan is to transfer the patient to telemetry. Neuro -Alert and oriented x3 -Neuropathy--cont. gabapentin Cardiac -h/o non-ischemic cardiomyopathy likely 2/2 to cocaine and ETOH abuse -SOB--likely an acute exacerbation of chronic CHF -Biventricularly paced -EKG--paced rhythm, 77 bpm, occasional AV dual paced complexes and PVC's, [id number] -Repeat ECHO, trops, BNP EKG -Past ECHO (2016) demonstrated severe mitral regurgitation and EF of 30-35% -Cath (02/2017)--suggest severe dx of LAD--main and ostial and circumflex -Cont. ASA, statin, carvedilol and lisinopril. -Bumex 2mg Pulm -ANDREW intolerant on CPAP -PFT in 2017 showed FEV1 of 69% -On L of O2 - GI Renal/Lytes ENDO HEME ID LINES DVT ppx Resuscitation status
[2018-03-27 13:22] LABS: HEMOGLOBIN 14.4 g/dL (14.0-18.0); MEAN CELL VOLUME 93.3 fL (80-100); MEAN CORPUSCULAR HEMOGLOBIN 31.2 pg (25-34); MEAN PLATELET VOLUME 9.9 fL (7.4-10.4); PLATELET COUNT 173 K/uL (130-400); RED CELL DISTRIBUTION WIDTH CV 13.9 % (11.5-14.5); RED CELL DISTRIBUTION WIDTH SD 47.5 fL (36.4-46.3)
[2018-03-27] MEDS: INSULIN HUMAN REGULAR SC SCH ×3 (13:27→20:48)
[2018-03-27 13:31] LABS: MEAN CORPUSCULAR HGB CONC 33.5 g/dl (32-36)
[2018-03-27 13:34] LABS: INR 1.1 (0.9-1.1); PTT PATIENT 23.6 SECONDS (21.0-31.0)
[2018-03-27] MEDS ORDERED: HEPARIN SOD 5000 UNIT/0.5 ML CARP SQ SCH (14:00)
[2018-03-27] MEDS: ACETAMINOPHEN/CODEINE 300/30MG TAB PO PRN ×2 (14:10→23:06)
--- NOTE | 2018-03-27 14:28 | CARDIOLOGY CONSULTATION REPORT ---
DATE OF CONSULTATION: 03/27/2018 REASON FOR CONSULTATION: [id number]-ieojsrn combined congestive heart failure. HISTORY OF PRESENT ILLNESS: Mr. Vee is a 62-year-old white male with a history of Obesity, Type 2 Diabetes Mellitus, COPD, Chronic Kidney Disease, Hepatitis C, Multivessel CAD (including the LMCA, LAD, LCx) s/p multivessel stenting (details unknown), done at an outside facility), and a Cardiomyopathy with most recent LVEF being measured at 30%-35%. The patient previously had a dual-chamber AICD, but in July 2017, he upgraded to a biventricular AICD. The patient states that over the past 7 days, he has noticed increasing fatigue, increased dyspnea on exertion, increased shortness of breath, and nonintentional fluid weight gain. The patient has not been maintaining a low-sodium diet, and admits to eating a lot of hamburgers only. Nonetheless, he awakened this morning at approximately 0300 acutely short of breath. He was transported to [facility] for further evaluation and subsequently was transferred as a direct admission to our facility for further evaluation and management. The patient offers no other complaints. He denies any chest pain or angina pectoris. His breathing has improved significantly since he presented to [facility], although he is still currently on BiPAP and is maintaining his oxygen saturations. The patient specifically denies any chest pain, heaviness, tightness, pressure, or discomfort. He denies any neck, jaw, back, or arm pain. He denies any palpitations, or tachy palpitations. No syncope or near syncope. MEDICATIONS: 1. Aspirin 81 mg daily. 2. Lipitor 80 mg daily. 3. Bumex 2 mg p.o. q.a.m. 4. Vitamin B12 500 mcg q.a.m. 5. Lisinopril 5 mg a day. 6. Coreg 25 mg b.i.d. 7. Vitamin D 1000 international units b.i.d. 8. Neurontin 100 mg t.i.d. 9. Heparin 5000 units subcutaneous injection every 8 hours. 10. Novolin R sliding scale insulin. 11. Tylenol with codeine every 6 hours as needed for pain. 12. Albuterol inhaler 2 puffs p.o. every 6 hours p.r.n. for shortness of breath. ALLERGIES: 1. BUDESONIDE. 2. CARBAMAZEPINE. 3. CYCLOBENZAPRINE. 4. DIGOXIN. 5. DOXYCYCLINE. 6. FLUTICASONE. 7. FORMOTEROL. 8. METFORMIN. 9. SOLU-MEDROL. 10. SODIUM PROPIONATE. PAST MEDICAL HISTORY: 1. Type 2 diabetes mellitus. 2. Obesity. 3. Cardiomyopathy with an elevated EF of 30%-35%, status post bi-V AICD upgraded in July 2017. 4. Chronic combined systolic and diastolic CHF. 5. Multivessel CAD, status post multiple intracoronary stents (details unknown). 6. Chronic kidney disease. 7. Severe MR. 8. History of hepatitis C. 9. COPD. 10. History of multifactorial hypoxic respiratory failure. 11. Left renal mass, being followed by Radha montoya. SOCIAL HISTORY: The patient is , lives with his family. He is a former smoker. No illicit drugs. He is employed. FAMILY HISTORY: Significant for heart disease, hypertension, and diabetes mellitus. PHYSICAL EXAMINATION: VITAL SIGNS: Temperature is 36.5 degrees Celsius, pulse is 75 and regular with occasional ectopy. Respiratory rate is 18, blood pressure is 118/79, SpO2 is 94% on BiPAP with an oxygen flow-rate of 4.0 liters per minutes and an FiO2 of 40%. GENERAL: The patient is in no acute distress, sitting upright in bed with a BiPAP mask in place. HEENT: Head is atraumatic, normocephalic. EOMs intact. Sclerae anicteric. Face is symmetric. No perioral cyanosis. NECK: Without an obvious JVD, but it is very difficult to assess due to body habitus. Carotid upstrokes are +2 bilaterally without bruits. CHEST AND LUNGS: With diminished breath sounds in bilateral bases, no obvious wheezes, rales, or crackles. CARDIOVASCULAR SYSTEM: S1 and S2 are regular, distant with a grade 1/6 systolic murmur at the left sternal border. It does not appear to radiate. No diastolic murmurs appreciated. No obvious gallops or rubs. PMI is nonpalpable. No lifts, heaves, or thrills. No abdominal aortic or renal bruits. ABDOMINAL EXAMINATION: Bowel sounds are present. No masses, organomegaly, or tenderness. EXTREMITIES: With trace pedal edema bilaterally. Intact radial pulses and posterior tibial pulses bilaterally. NEUROLOGIC EXAMINATION: The patient is awake, alert, and interactive. He answers questions appropriately. Speech is clear. Normal movement in all four extremities. Gait pattern not assessed. DATA: Telemetry monitoring reveals an underlying sinus rhythm with biventricular pacing, occasional PVCs and ventricular couplets. LABORATORIES: White blood cell count is 10.16. Hemoglobin 14.8 g/dL, hematocrit 44.4%, and platelet count is 167,000. Comprehensive metabolic panel, proBNP, and troponin I levels are pending. Serum magnesium level pending. CHEST X-RAY: Consistent with mild CHF. Most recent Echocardiogram on 07/28/2017 shows a severely dilated LV with [id number] LV dysfunction, LVEF 30%-35% with mid to apical anterior and septal akinesis. Akinetic apex. Normal RV size and systolic function and grade 2 LV diastolic dysfunction, mild MR. ASSESSMENT: 1. Taynn-sj-Vnllods Combined Systolic and Diastolic CHF -- likely exacerbated by dietary salt indiscretion. 2. Cardiomyopathy s/p Bi-V AICD placement in July 2017. 3. Cardiomyopathy with most recent LVEF being measured at 30%-35%. 4. Multivessel CAD s/p Intracoronary Stents per patient (details unknown). 5. Grade 2 LV Diastolic Dysfunction. 6. Chronic obstructive pulmonary disease. 7. Diagnoses as mentioned above. PLAN: 1. At the present time, the patient's breathing status has improved dramatically since initially presenting to [facility]. He appears to be mildly volume overloaded as evidenced by his body weight (109 kg today and he weighed 102 kg at the time of discharge in July 2017). 2. Continue p.o. or IV Bumex to maintain a negative fluid balance. 3. Increase Coreg to 37.5 mg b.i.d. 4. Continue Lisinopril 5 mg daily. Could consider switching to Entresto as an outpatient, but he will need to be off of lisinopril for a few days before that can be attempted. 5. Continue high dose Lipitor 80 mg daily. 6. We will continue Aspirin 81 mg daily. 7. Closely monitor daily I and O's, body weights. 8. Maintain a low sodium, healthy diet. 9. Continue supplemental oxygen as required. 10. The patient was counseled on the importance of maintaining a low sodium diet as an outpatient. He does consistently weigh himself on a daily basis. 11. Cardiac Enzymes are pending -- this does not appear to be an ACS. 12. The patient will be followed by Dr. Jose as of tomorrow. In the meantime, [facility] cardiology will cover the patient. Agree with above. Rene AGRAWAL
[2018-03-27] MEDS: HEPARIN 25,000 UNIT/500ML D5W 500 ML IV SCH (15:00)
[2018-03-27] MEDS: GABAPENTIN 100 MG CAP PO SCH ×2 (15:01→20:43)
--- NOTE | 2018-03-27 16:21 | ECHOCARDIOGRAM REPORT ---
*NOTICE TO RECEIVING CONSTITUTION PARTY AGENCY This information is strictly Confidential and protected under [place] law. [place] law prohibits you from making any further disclosure of this information unless further disclosure is expressly permitted by the written consent of the person to whom it pertains or is authorized by law. A general authorization for the release of medical or other information is not sufficient for this purpose. Hospital accepts no responsibility if the information is made available to any other person, INCLUDING THE PATIENT. Interpretation Summary * Name: TAMIE VAUGHAN Study Date: 03/27/2018 02:53 PM BP: 118/79 mmHg * Patient Location: C.2T\S\S241\S\2 HR: 73 * : 1955 (M/d/yyyy) Gender: Male Height: 68 in * Age: 62 yrs Ethnicity: CA Weight: 241 lb * Ordering Physician: George Acosta * Referring Physician: Fili Mooney * Performed By: Mariaa Bartholomew RCS * * Reason For Study: A-FIB * BSA: 2.2 m2 * -- Conclusions -- * Very technically limited study. * Left ventricular systolic function is moderately reduced. * There is moderate global hypokinesis of the left ventricle. * Ejection Fraction = 30-35%. * There is mild to moderate mitral regurgitation. Procedure Details * A complete two-dimensional transthoracic echocardiogram was performed (2D, M-mode, Doppler and color flow Doppler). * The study was technically difficult. * The study was technically limited. * There were technical limitations due to patient'sPoor acoustic windows secondary to severe lung disease. * Patient sitting upright for imagining * A contrast injection of Definity was performed to improve assessment of LV function. * Contrast was injected into an intravenous site in the right arm. * One vial of Definity ultrasound contrast was diluted in normal saline to a total volume of 10 ml. A total of '2' ml of solution was administered during imaging. * Lot # [id number] of Definity utilized for procedure. * Expiration date 1APR19. * The attending nurse who injected the contrast agent was Sarah Schmidt RN. Left Ventricle * The left ventricle is grossly normal size. * There is borderline concentric left ventricular hypertrophy. * Left ventricular systolic function is moderately reduced. * Ejection Fraction = 30-35%. * There is moderate global hypokinesis of the left ventricle. Right Ventricle * The right ventricle is not well visualized. * The right ventricular systolic function is reduced as assessed by tricuspid annular plane systolic excursion (TAPSE) (TAPSE <1.6 cm). Atria * The left atrium is not well visualized. * Right atrium not well visualized. * There is no evidence of atrial septal defect, but resolution does not allow assessment for a patent foramen ovale. Mitral Valve * The mitral valve is grossly normal. * There is mild to moderate mitral regurgitation. Tricuspid Valve * The tricuspid valve is not well visualized. * Significant tricuspid regurgitation is absent. Aortic Valve * The aortic valve is not well visualized. * The aortic valve opens well. * No hemodynamically significant valvular aortic stenosis. * There is no significant aortic regurgitation. Pulmonic Valve * The pulmonic valve is not well visualized. Great Vessels * Mild aortic root dilatation. * The pulmonary is not well visualized. Pericardium/Pleural * There is no pericardial effusion. Great Vessels * Inferior vena cava not well visualized. MMode 2D Measurements and Calculations IVSd 1.8 cm IVSs 1.9 cm LVIDd 6.0 cm LVIDs 5.1 cm LVPWd 1.4 cm LVPWs 1.7 cm IVS/LVPW 1.3 FS 15.8 % EDV(Teich) 181.7 ml ESV(Teich) 122.2 ml EF(Teich) 32.7 % EDV(cubed) 218.6 ml ESV(cubed) 130.4 ml EF(cubed) 40.3 % % IVS thick 2.4 % % LVPW thick 18.6 % LV mass(C)d 484.7 grams LV mass(C)dI 219.1 grams/m\S\2 LV mass(C)s 429.2 grams LV mass(C)sI 194.0 grams/m\S\2 SV(Teich) 59.5 ml SI(Teich) 26.9 ml/m\S\2 SV(cubed) 88.2 ml SI(cubed) 39.9 ml/m\S\2 Ao root diam 4.1 cm Ao root area 13.0 cm\S\2 ACS 1.8 cm LA dimension 4.5 cm LA/Ao 1.1 EDV(MOD-sp4) 392.1 ml ESV(MOD-sp4) 253.6 ml EF(MOD-sp4) 35.3 % EDV(MOD-sp2) 268.0 ml ESV(MOD-sp2) 198.3 ml EF(MOD-sp2) 26.0 % SV(MOD-sp4) 138.5 ml SI(MOD-sp4) 62.6 ml/m\S\2 SV(MOD-sp2) 69.7 ml SI(MOD-sp2) 31.5 ml/m\S\2 Doppler Measurements and Calculations MV E max susanne 144.9 cm/sec MV A max susanne 150.3 cm/sec MV E/A 0.96 MV P1/2t max susanne 171.5 cm/sec MV P1/2t 63.1 msec MVA(P1/2t) 3.5 cm\S\2 MV dec slope 796.1 cm/sec\S\2 MV dec time 0.19 sec Ao V2 max 113.9 cm/sec Ao max PG 5.2 mmHg Ao max PG (full) 2.3 mmHg LV V1 max PG 2.9 mmHg LV V1 max 84.6 cm/sec
[2018-03-27] MEDS ORDERED: NITROGLYCERIN 0.4 MG SL PER TAB CHARGE SL PRN (16:45)
[2018-03-27] MEDS ORDERED: METOPROLOL TARTRATE 1 MG/ML VIAL IV PRN (16:45)
--- NOTE | 2018-03-27 17:43 | Critical Care Consultation ---
Critical Care Consultation Date of Consultation: March 27, 2018. Attending Physician: Fili Mooney M.D. Reason for Consultation: Acute respiratory distress likely 2/2 acute on chronic heart failure History of Present Illness 62 yo male with PMH of nonischemic cardiomyopathy was life flighted from [place] and directly admitted to the ICU at [facility] for acute respiratory failure. Upon arrival, the patient condition was improving and was weaned from BIPAP. Past Medical/Surgical History non-ischemic cardiomyopathy, CAD, HTN, T2DM, ANDREW, CKD3, RCC Family History Diabetes mellitus Heart disease Hypertension Social History Smoking Status: Former Smoker Drug Use: none Marital Status: Housing Status: lives with significant other Occupation Status: employed Allergies Coded Allergies: Budesonide (Verified Allergy, Unknown, TACHYCARDIA, SOB, 07/28/17) Carbamazepine (Verified Allergy, Unknown, TACHYCARDIA, PANIC ATTACK, ) Cyclobenzaprine (Verified Allergy, Unknown, UNK, 07/28/17) Doxycycline (Verified Allergy, Unknown, ABD PAIN, 07/28/17) Fluticasone (Verified Allergy, Unknown, UNK, 07/28/17) Formoterol (Verified Allergy, Unknown, TACHYCARDIA, SOB, 07/28/17) Salmeterol (Verified Allergy, Unknown, ANAPHYLAXIS, 07/28/17) Sodium Propionate (Verified Allergy, Unknown, SHORTNESS OF BREATH, 07/28/17) Digoxin (Verified Adverse Reaction, Unknown, BACK AND STOMACH PAIN, 07/28/17 ) Metformin (Verified Adverse Reaction, Unknown, MUSCLE ACHES IN BVACK AND KIDNEYS, 07/28/17) Home Medications Scheduled Aspirin (Aspirin 81), 81 MG PO QAM Atorvastatin (Lipitor), 80 MG PO DAILY Bumetanide (Bumetanide), 2 MG PO QAM Carvedilol (Coreg), 25 MG PO BID Cholecalciferol (Vitamin D3), 1,000 UNITS PO BID Coenzyme Q10 (Ubidecarenone) (Co Q10), 50 MG PO QAM Cyanocobalamin (Vitamin B-12), 500 MCG PO QAM Glimepiride (Amaryl), 2 MG PO DAILY Lisinopril (Zestril), 5 MG PO QAM [place]-3 Fatty Acids (Fish Oil), 1 CAP PO QAM Scheduled PRN Acetaminophen/Codeine (Tylenol W/Codeine #3), 1 TAB PO Q6 PRN for Pain Albuterol Hfa (Ventolin Hfa), 2-4 PUFFS INH Q6H PRN for Wheezing Miscellaneous Medications Ipratropium-Albuterol (Combivent Respimat) Current Inpatient Medications Current Inpatient Medications Medications (Trade) Dose Ordered Sig/Pearl Route Start Time Stop Time Status Last Admin Dose Admin Miscellaneous Information (Icu Protocol For Hyperglycemia) 1 ea PRN PRN N/A 03/27/18 11:00 03/29/18 10:59 Insulin Human Regular (novoLIN-R) SLIDING SCALE IF C... ACHS SC 03/27/18 11:00 04/26/18 10:59 03/27/18 17:19 3 UNITS Glucose (Glucose 40% Gel) 15-30 GRAMS 15 GRAMS... UD PRN PO 03/27/18 11:00 04/26/18 10:59 Glucose (Glucose Chew Tab) 4-8 Tablets 4 Tabl... UD PRN PO 03/27/18 11:00 04/26/18 10:59 Dextrose (Dextrose 50% 50ML Syringe) 25-50ML 25ML FOR ... UD PRN IV 03/27/18 11:00 04/26/18 10:59 Glucagon (Glucagon Inj) 1 mg UD PRN SQ 03/27/18 11:00 04/26/18 10:59 Carbohydrates (Carbohydrates For Hypoglycemia) 15-30 GRAMS 15 grams if BSG 54-69... UD PRN PO 03/27/18 11:00 04/26/18 10:59 Acetaminophen/ Codeine Phosphate (Tylenol w/ Codeine #3 Tab) 1 tab Q6 PRN PO 03/27/18 11:00 04/26/18 10:59 03/27/18 14:10 1 TAB Albuterol (Ventolin Hfa Inhaler) 2 puffs Q6H PRN INH 03/27/18 11:00 04/26/18 10:59 Aspirin (Ecotrin Tab) 81 mg QAM PO 03/28/18 09:00 04/27/18 08:59 Atorvastatin Calcium (Lipitor Tab) 80 mg DAILY PO 03/28/18 09:00 04/27/18 08:59 Bumetanide (Bumex Tab) 2 mg QAM PO 03/28/18 09:00 04/27/18 08:59 Cyanocobalamin (Vitamin B-12 Tab) 500 mcg QAM PO 03/28/18 09:00 04/27/18 08:59 Lisinopril (Zestril Tab) 5 mg QAM PO 03/28/18 09:00 04/27/18 08:59 Cholecalciferol (Vitamin D Tab) 1,000 inter.unit BID PO 03/27/18 21:00 04/26/18 20:59 Gabapentin (Neurontin Cap) 100 mg TID PO 03/27/18 14:00 04/26/18 13:59 03/27/18 15:01 100 MG Heparin Sodium/ Dextrose 500 ml @ 31 mls/hr Q16H8M IV 03/27/18 13:15 04/26/18 13:14 03/27/18 15:00 31 MLS/HR Carvedilol (Coreg Tab) 37.5 mg BID PO 03/27/18 21:00 04/26/18 20:59 UNV Metoprolol Tartrate (Lopressor Iv) 5 mg Q4 PRN IV. 03/27/18 16:45 04/26/18 16:44 UNV Nitroglycerin (Nitrostat Tab) 0.4 mg PRN PRN SL 03/27/18 16:45 04/26/18 16:44 UNV Review of Systems A 10 point review of systems has been obtained and is otherwise negative. Constitutional: No fever, No chills Respiratory: + shortness of breath, + dyspnea on exertion, + dyspnea at rest Cardiovascular: No chest pain, No edema, No palpitations Abdomen: No pain, No nausea, No vomiting Genitourinary - Male: No hematuria Physical Exam Date Time Temp Pulse Resp B/P (MAP) Pulse Ox O2 Delivery O2 Flow Rate FiO2 03/27/18 16:20 96 Mask 10.0 03/27/18 16:10 96 Mask 10.0 03/27/18 12:00 36.5 68 18 122/70 (87) 91 Nasal Cannula 4.0 03/27/18 12:00 91 Nasal Cannula 4.0 03/27/18 11:30 73 94 40 03/27/18 10:48 36.5 77 18 118/79 3 Nasal Cannula 4.0 General Appearance: uncomfortable, moderate distress, obese Head: normocephalic, atraumatic Eyes: PERRLA, EOMI Neck: normal range of motion, no tenderness, trachea midline, no stridor, supple Respiratory: breath sounds normal, clear to auscultation, accessory muscle use Cardiovasular: regular rate/rhythm, normal S1S2, no M/G/R, no murmur Abdomen: non tender, normal bowel sounds, no rebound Laboratory Results Last 24 Hours Test 03/27/18 10:46 03/27/18 11:37 03/27/18 13:09 03/27/18 16:23 White Blood Count 10.16 K/uL 8.20 K/uL Red Blood Count 4.72 M/uL 4.61 M/uL Hemoglobin 14.8 g/dL 14.4 g/dL Hematocrit 44.4 % 43.0 % Mean Corpuscular Volume 94.1 fL 93.3 fL Mean Corpuscular Hemoglobin 31.4 pg 31.2 pg Mean Corpuscular Hemoglobin Concent 33.3 g/dl 33.5 g/dl Platelet Count 167 K/uL 173 K/uL Mean Platelet Volume 10.1 fL 9.9 fL Neutrophils (%) (Auto) 88.2 % Lymphocytes (%) (Auto) 8.4 % Monocytes (%) (Auto) 2.5 % Eosinophils (%) (Auto) 0.1 % Basophils (%) (Auto) 0.1 % Neutrophils # (Auto) 8.97 K/uL Lymphocytes # (Auto) 0.85 K/uL Monocytes # (Auto) 0.25 K/uL Eosinophils # (Auto) 0.01 K/uL Basophils # (Auto) 0.01 K/uL RDW Standard Deviation 47.4 fL 47.5 fL RDW Coefficient of Variation 13.7 % 13.9 % Immature Granulocyte % (Auto) 0.7 % Immature Granulocyte # (Auto) 0.07 K/uL Prothrombin Time 11.8 SECONDS 11.9 SECONDS Prothromb Time International Ratio 1.1 1.1 Activated Partial Thromboplast Time 23.5 SECONDS 23.6 SECONDS Partial Thromboplastin Ratio 0.9 0.9 Sodium Level 139 mmol/L Potassium Level 4.5 mmol/L Chloride Level 106 mmol/L Carbon Dioxide Level 27 mmol/L Anion Gap 6.0 mmol/L Blood Urea Nitrogen 33 mg/dl Creatinine 1.81 mg/dl Est Creatinine Clear Calc Drug Dose 49.5 ml/min Estimated GFR () 44.8 Estimated GFR (Non- 38.6 BUN/Creatinine Ratio 18.1 Random Glucose 173 mg/dl Lactic Acid Level 2.2 mmol/L Calcium Level 8.5 mg/dl Phosphorus Level 3.3 mg/dl Magnesium Level 2.1 mg/dl Total Bilirubin 0.9 mg/dl Direct Bilirubin 0.2 mg/dl Aspartate Amino Transf (AST/SGOT) 51 U/L Alanine Aminotransferase (ALT/SGPT) 47 U/L Alkaline Phosphatase 47 U/L Troponin I 1.800 ng/ml Pro-B-Type Natriuretic Peptide 3040 pg/ml Total Protein 7.1 gm/dl Albumin 3.7 gm/dl Globulin 3.4 gm/dl Albumin/Globulin Ratio 1.1 Bedside Glucose 234 mg/dl Assessment & Plan 62 yo male presents as a transfer from [place] with respiratory failure 2/2 presumed acute on chronic heart failure. PMH; Significant for non-ischemic cardiomyopathy, CAD, HTN, T2DM, ANDREW, CKD3 Assessment; The patient was life flighted to [facility] from [place] on BIPAP. Upon arrival, the patient's condition greatly improved--hemodynamically stabel and no longer requiring BIPAP. Plan; Draw initial labs and monitor in the ICU. Plan is to transfer the patient to telemetry. Neuro -Alert and oriented x3 -Neuropathy--cont. gabapentin Cardiac -h/o non-ischemic cardiomyopathy likely 2/2 to cocaine and ETOH abuse -SOB--likely an acute exacerbation of chronic CHF -Biventricularly paced -EKG--paced rhythm, 77 bpm, occasional AV dual paced complexes and PVC's, [id number] -Repeat ECHO, trops, BNP EKG -Past ECHO (2016) demonstrated severe mitral regurgitation and EF of 30-35% -Cath (02/2017)--suggest severe dx of LAD--main and ostial and circumflex -Cont. ASA, statin, carvedilol and lisinopril. -Bumex 2mg Pulm -ANDRWE intolerant on CPAP -PFT in 2017 showed FEV1 of 69% -On 4L NC -Former smoker--2PPD x 20years GI -H/o hep C-documented cure with pegylated interferon and ribavirin -Kept NPO upon arrival Renal/Lytes -Order PRP, Mg, Ph -Recent diagnosis of Renal Cell Carcinoma--4.2 cm lesion in right kidney, 11 mm in left kidney ENDO -H/o DM -Lantus, BSG AC&HS--NovoLog sliding scale HEME -CBC ordered ID -Afebrile on arrival LINES -PIV intact DVT ppx- -IV heparin started on arrival Resuscitation status Full Resuscitation Dr. Busby was resident physician during care of patient. I separately evaluated patient and did history and exam. I discussed the case with the resident and generally agree with the findings and plan. Patient able to speak in full sentences during my exam, hemodynamics significantly improved from those documented in ED record at [place]. Patient has history of ischemic heart disease and this is most likely artist representative acute decompensated systolic and diastolic heart failure. Given that the patient's hemodynamics improved he is stable for transfer to telemetry.
[2018-03-27] MEDS: CHOLECALCIFEROL 1000 INTER.UNIT TAB PO SCH (20:43)
[2018-03-27] MEDS: CARVEDILOL 12.5 MG TAB PO SCH (20:44)
[2018-03-27] MEDS ORDERED: CARVEDILOL 25 MG TAB PO SCH (21:00)
[2018-03-27 21:38] LABS: PTT PATIENT 40.5 SECONDS (21.0-31.0)
[2018-03-27] MEDS ORDERED: HEPARIN IV BOLUS 7,000 UNIT in SYRINGE 0 ML IV ONE (22:00)
[2018-03-28] VITALS (11 sets, daily range): BP systolic 90–127; BP diastolic 52–80; PULSE 60–90; TEMP 36.4–37; O2SAT 88–99
[2018-03-28 03:45] LABS: HEMATOCRIT 41.5 % (42-52); HEMOGLOBIN 13.4 g/dL (14.0-18.0); IG# 0.08 K/uL (0.00-0.02); LYMPH % 8.5 %; LYMPH ABS # 1.42 K/uL (1.2-3.4); MEAN CELL VOLUME 93.3 fL (80-100); MEAN CORPUSCULAR HEMOGLOBIN 30.1 pg (25-34); MEAN CORPUSCULAR HGB CONC 32.3 g/dl (32-36); MEAN PLATELET VOLUME 10.6 fL (7.4-10.4); MONO % 7.2 %; NEUT % 83.8 %; NEUT ABS # 13.91 K/uL (1.4-6.5); PLATELET COUNT 174 K/uL (130-400); RED CELL DISTRIBUTION WIDTH CV 13.8 % (11.5-14.5); RED CELL DISTRIBUTION WIDTH SD 47.3 fL (36.4-46.3); WHITE BLOOD COUNT 16.61 K/uL (4.8-10.8)
[2018-03-28 04:07] LABS: CALCIUM 8.6 mg/dl (8.5-10.1); CREATININE 1.97 mg/dl (0.60-1.40); POTASSIUM 4.7 mmol/L (3.5-5.1)
[2018-03-28 04:14] LABS: PHOSPHORUS 4.6 mg/dl (2.5-4.9)
[2018-03-28 04:18] LABS: PTT PATIENT 183.7 SECONDS (21.0-31.0)
[2018-03-28] MEDS: ACETAMINOPHEN/CODEINE 300/30MG TAB PO PRN (05:42)
[2018-03-28 05:51] LABS: PTT PATIENT 102.5 SECONDS (21.0-31.0)
[2018-03-28] MEDS: INSULIN HUMAN REGULAR SC SCH ×4 (07:00→20:43)
[2018-03-28 07:05] LABS: PTT PATIENT 54.9 SECONDS (21.0-31.0)
[2018-03-28] MEDS: BUMETANIDE 1 MG TAB PO SCH (07:45)
[2018-03-28] MEDS: CARVEDILOL 12.5 MG TAB PO SCH ×2 (07:46→20:37)
[2018-03-28] MEDS: ASPIRIN 81 MG ECTAB PO SCH (07:46)
[2018-03-28] MEDS: ATORVASTATIN 40 MG TAB PO SCH (07:46)
[2018-03-28] MEDS: LISINOPRIL 5 MG TAB PO SCH (07:46)
[2018-03-28] MEDS: CYANOCOBALAMIN 500 MCG TAB (VIT B-12) PO SCH (07:46)
[2018-03-28] MEDS: GABAPENTIN 100 MG CAP PO SCH ×3 (07:46→20:38)
[2018-03-28] MEDS: CHOLECALCIFEROL 1000 INTER.UNIT TAB PO SCH ×2 (07:46→20:37)
[2018-03-28] MEDS: HEPARIN 25,000 UNIT/500ML D5W 500 ML IV SCH ×3 (07:52→22:08)
--- NOTE | 2018-03-28 09:51 | Progress Note ---
Subjective Date of Service: March 28, 2018. Subjective Patient is more focused on his intermittent neck pain and right chest pain than his cancer and chf. Patient reports his sharp neck pain on the right is intermittent, does not occur daily, and can occur at rest or exertion. he states he has seen neurology in the past with no improvement. Problem List Medical Problems: (1) Diabetes mellitus out of control Status: Acute (2) Hyperkalemia Status: Acute (3) Hypotension Status: Acute (4) Left sided chest pain Status: Acute (5) Pulmonary edema Status: Acute (6) Right kidney mass Status: Acute Review of Systems Review of Systems Constitutional: No fever, No chills, No sweats Eyes: No worsening of vision ENT: No hearing loss, No unusual epistaxis, No nasal symptoms Respiratory: + shortness of breath, + dyspnea on exertion, + dyspnea at rest Cardiovascular: + orthopnea, No chest pain Abdomen: No pain, No nausea, No vomiting Musculoskeletal: No joint pain Genitourinary - Male: No hematuria, No dysuria Neurologic: No memory loss, No paralysis, No weakness Psychiatric: No depression symptoms Endocrine: No fatigue Hematologic / Lymphatic: No abnormal bleeding/bruising Integumentary: No rash Allergic / Immunologic: No environmental allergies All Other Systems: Reviewed and Negative Objective Vital Signs Date Time Temp Pulse Resp B/P (MAP) Pulse Ox O2 Delivery O2 Flow Rate FiO2 03/28/18 08:11 Oxymask 6.0 03/28/18 07:22 36.7 80 18 127/74 (91) 97 Oxymask 6.0 03/28/18 04:58 36.4 72 17 115/72 (86) 97 Nasal Cannula 6.0 03/28/18 04:00 BiPAP 03/28/18 00:51 36.4 90 20 124/80 (95) 94 CPAP 03/28/18 00:00 BiPAP 03/27/18 23:23 94 40 03/27/18 20:03 Oxymask 6.0 03/27/18 19:14 36.5 93 24 128/82 (97) 94 Oxymask 8.0 03/27/18 16:20 96 Mask 10.0 03/27/18 16:10 96 Mask 10.0 03/27/18 12:00 36.5 68 18 122/70 (87) 91 Nasal Cannula 4.0 03/27/18 12:00 91 Nasal Cannula 4.0 03/27/18 11:30 73 94 40 03/27/18 10:48 36.5 77 18 118/79 3 Nasal Cannula 4.0 Physical Exam General Appearance: WD/WN, no apparent distress Eyes: normal inspection ENT: normal ENT inspection Neck: supple, no adenopathy Respiratory/Chest: chest non-tender, + decreased breath sounds Cardiovascular: regular rate, rhythm, + systolic murmur Abdomen: normal bowel sounds, non tender, soft Extremities: + swelling Neurologic/Psychiatric: alert, oriented x 3 Skin: normal color Lymphatic: no adenopathy Laboratory Results Last 24 Hours Test 03/27/18 11:20 03/27/18 11:37 03/27/18 13:09 03/27/18 16:23 Bedside Glucose 178 mg/dl 234 mg/dl White Blood Count 10.16 K/uL 8.20 K/uL Red Blood Count 4.72 M/uL 4.61 M/uL Hemoglobin 14.8 g/dL 14.4 g/dL Hematocrit 44.4 % 43.0 % Mean Corpuscular Volume 94.1 fL 93.3 fL Mean Corpuscular Hemoglobin 31.4 pg 31.2 pg Mean Corpuscular Hemoglobin Concent 33.3 g/dl 33.5 g/dl Platelet Count 167 K/uL 173 K/uL Mean Platelet Volume 10.1 fL 9.9 fL Neutrophils (%) (Auto) 88.2 % Lymphocytes (%) (Auto) 8.4 % Monocytes (%) (Auto) 2.5 % Eosinophils (%) (Auto) 0.1 % Basophils (%) (Auto) 0.1 % Neutrophils # (Auto) 8.97 K/uL Lymphocytes # (Auto) 0.85 K/uL Monocytes # (Auto) 0.25 K/uL Eosinophils # (Auto) 0.01 K/uL Basophils # (Auto) 0.01 K/uL RDW Standard Deviation 47.4 fL 47.5 fL RDW Coefficient of Variation 13.7 % 13.9 % Immature Granulocyte % (Auto) 0.7 % Immature Granulocyte # (Auto) 0.07 K/uL Prothrombin Time 11.8 SECONDS 11.9 SECONDS Prothromb Time International Ratio 1.1 1.1 Activated Partial Thromboplast Time 23.5 SECONDS 23.6 SECONDS Partial Thromboplastin Ratio 0.9 0.9 Sodium Level 139 mmol/L Potassium Level 4.5 mmol/L Chloride Level 106 mmol/L Carbon Dioxide Level 27 mmol/L Anion Gap 6.0 mmol/L Blood Urea Nitrogen 33 mg/dl Creatinine 1.81 mg/dl Est Creatinine Clear Calc Drug Dose 49.5 ml/min Estimated GFR () 44.8 Estimated GFR (Non- 38.6 BUN/Creatinine Ratio 18.1 Random Glucose 173 mg/dl Lactic Acid Level 2.2 mmol/L Calcium Level 8.5 mg/dl Phosphorus Level 3.3 mg/dl Magnesium Level 2.1 mg/dl Total Bilirubin 0.9 mg/dl Direct Bilirubin 0.2 mg/dl Aspartate Amino Transf (AST/SGOT) 51 U/L Alanine Aminotransferase (ALT/SGPT) 47 U/L Alkaline Phosphatase 47 U/L Troponin I 1.800 ng/ml Pro-B-Type Natriuretic Peptide 3040 pg/ml Total Protein 7.1 gm/dl Albumin 3.7 gm/dl Globulin 3.4 gm/dl Albumin/Globulin Ratio 1.1 Test 03/27/18 18:51 03/27/18 20:36 03/27/18 21:08 03/28/18 03:25 Troponin I 2.930 ng/ml 3.830 ng/ml Bedside Glucose 256 mg/dl Activated Partial Thromboplast Time 40.5 SECONDS 183.7 SECONDS Partial Thromboplastin Ratio 1.6 7.1 White Blood Count 16.61 K/uL Red Blood Count 4.45 M/uL Hemoglobin 13.4 g/dL Hematocrit 41.5 % Mean Corpuscular Volume 93.3 fL Mean Corpuscular Hemoglobin 30.1 pg Mean Corpuscular Hemoglobin Concent 32.3 g/dl Platelet Count 174 K/uL Mean Platelet Volume 10.6 fL Neutrophils (%) (Auto) 83.8 % Lymphocytes (%) (Auto) 8.5 % Monocytes (%) (Auto) 7.2 % Eosinophils (%) (Auto) 0.0 % Basophils (%) (Auto) 0.0 % Neutrophils # (Auto) 13.91 K/uL Lymphocytes # (Auto) 1.42 K/uL Monocytes # (Auto) 1.20 K/uL Eosinophils # (Auto) 0.00 K/uL Basophils # (Auto) 0.00 K/uL RDW Standard Deviation 47.3 fL RDW Coefficient of Variation 13.8 % Immature Granulocyte % (Auto) 0.5 % Immature Granulocyte # (Auto) 0.08 K/uL Sodium Level 138 mmol/L Potassium Level 4.7 mmol/L Chloride Level 105 mmol/L Carbon Dioxide Level 27 mmol/L Anion Gap 6.0 mmol/L Blood Urea Nitrogen 40 mg/dl Creatinine 1.97 mg/dl Est Creatinine Clear Calc Drug Dose 45.5 ml/min Estimated GFR () 40.4 Estimated GFR (Non- 34.9 BUN/Creatinine Ratio 20.4 Random Glucose 194 mg/dl Calcium Level 8.6 mg/dl Phosphorus Level 4.6 mg/dl Magnesium Level 2.2 mg/dl Test 03/28/18 05:08 03/28/18 05:45 03/28/18 06:33 03/28/18 07:17 Activated Partial Thromboplast Time 102.5 SECONDS 54.9 SECONDS Partial Thromboplastin Ratio 3.9 2.1 Urine Color YELLOW Urine Appearance CLEAR Urine pH 5.0 Urine Specific [place] 1.026 Urine Protein NEG Urine Glucose (UA) 1+ Urine Ketones NEG Urine Occult Blood NEG Urine Nitrite NEG Urine Bilirubin NEG Urine Urobilinogen NEG Urine Leukocyte Esterase NEG Urine WBC (Auto) 1-5 /hpf Urine RBC (Auto) 0-4 /hpf Urine Hyaline Casts (Auto) 1-5 /lpf Urine Epithelial Cells (Auto) 5-10 /lpf Urine Bacteria (Auto) NEG Bedside Glucose 154 mg/dl Test 03/28/18 09:33 03/28/18 09:47 Assessment and Plan 61 y/o male with a history of combined CHF, paroxysmal AF, HTN, HLD, CAD, pacemaker, COPD, DM II, CKD III, renal mass. The pt presents as a direct admission from [facility]. He was initially evaluated in the [facility] ER for respiratory distress due to CHF exacerbation with pulmonary edema. As the pt is managed by specialists - including cardiology - at [facility], a decision was made to transfer him for further management. On arrival to the ICU at [facility], he appears stable and any respiratory distress has resolved. He denies CP, a productive cough, nausea, vomiting or fevers. He confirms he has improved markedly from the time he presented at [facility]. Initial labs are notable for an elevated troponin and a mildly elevated lactic acid. 1) CHF exacerbation - Patient was initally on iv BUMEX. This was titrated to PO. I/O, daily weight, cont Coreg, Lisinopril Negative 1.5 liters 2) Elevated trop/CAD - may be due to demand - placed on full-dose Heparin pending evaluation by cardiology - cont B juanito, Statin, ASA -trop peaked at 3. -no interventions recommended at this time due to his other comorbidities. 3) CKD III - creat is currently at baseline 4) HTN - cont Lisinopril, Carvedilol 5) HPL - Cont Atorvastatin 6)h/o renal cell cancer will consult palliative care. 7)neck pain: patient on gabapentin spent 67 minutes in management of patient: discussing with consultants. Interviewing patient, examining patient and reviewing records.
--- NOTE | 2018-03-28 10:16 | Cardiology Follow-Up ---
Subjective General Date of Service: March 28, 2018. Pt evaluation today including: conversation w/ patient, chart review, lab review, review of studies History of Present Illness The patient is a 62 year old male Allergies Coded Allergies: Budesonide (Verified Allergy, Unknown, TACHYCARDIA, SOB, 07/28/17) Carbamazepine (Verified Allergy, Unknown, TACHYCARDIA, PANIC ATTACK, ) Cyclobenzaprine (Verified Allergy, Unknown, UNK, 07/28/17) Doxycycline (Verified Allergy, Unknown, ABD PAIN, 07/28/17) Fluticasone (Verified Allergy, Unknown, UNK, 07/28/17) Formoterol (Verified Allergy, Unknown, TACHYCARDIA, SOB, 07/28/17) Salmeterol (Verified Allergy, Unknown, ANAPHYLAXIS, 07/28/17) Sodium Propionate (Verified Allergy, Unknown, SHORTNESS OF BREATH, 07/28/17) Digoxin (Verified Adverse Reaction, Unknown, BACK AND STOMACH PAIN, 07/28/17 ) Metformin (Verified Adverse Reaction, Unknown, MUSCLE ACHES IN BVACK AND KIDNEYS, 07/28/17) Social History Smoking Status: Former Smoker Hx Tobacco Use In Past Year?: No Hx Alcohol Use - Type And Amou: No Hx Substance Use - Type And Am: No Problem List Medical Problems: (1) Diabetes mellitus out of control Status: Acute (2) Hyperkalemia Status: Acute (3) Hypotension Status: Acute (4) Left sided chest pain Status: Acute (5) Pulmonary edema Status: Acute (6) Right kidney mass Status: Acute Review of Systems Respiratory: No cough, No shortness of breath, No dyspnea at rest Cardiac: + chest pain, No edema, No palpitations Additional ROS Details: 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 This likely represents nonsustained VT and in discussion with Claudio it correlates with the symptoms he had yesterday afternoon. Right sided neck pain. ?? anginal equivalent. Physical Exam Vital Signs Last Vital Signs Documentation Date Time Temp Pulse Resp B/P (MAP) Pulse Ox O2 Delivery O2 Flow Rate FiO2 03/28/18 08:11 Oxymask 6.0 03/28/18 07:22 36.7 80 18 127/74 (91) 97 03/27/18 23:23 40 Physical Exam Constitutional: General Apperance: obese Level of Distress: mild distress Psychiatric: Mental Status: active & alert, normal mood, normal affect Lungs: Auscultation: no wheezing, no rales/crackles, no rhonchi, decreased breath sounds Cardiovascular: Heart Auscultation: RRR, II/ WSM Abdomen: Bowel Sounds: normal Inspection & Palpation: soft, no tenderness, guarding & rebound, distended ( chronically) Extremities: no edema Assessment and Plan Assessment and Plan ASSESSMENT: 1. [id number] Combined Systolic and Diastolic CHF -- likely exacerbated by dietary salt indiscretion. 2. 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 3. Cardiomyopathy with most recent LVEF being measured at 30%-35%. 4. 3 vessel CAD with with cardiac catheterization suggesting severe left main ostial LAD and circumflex disease 5. Grade 2 LV Diastolic Dysfunction. 6. Chronic obstructive pulmonary disease. 7. Chronic kidney disease now with a creatinine of 1.9 with a baseline creatinine of 1.5 8. In reviewing his monitor his rhythm appears to be consistent with runs of sustained VT at approximately 140 bpm which is below the detection zone of his defibrillator 9. 4.2 cm enhancing mid upper pole right renal mass and a 12 mm enhancing midpole left renal mass consistent with renal cell carcinoma turned down by urology for surgery at [facility] 10 diabetes mellitus type 2 11. Non-ST elevation myocardial infarction As I discussed with the nursing staff, hospitalist, and discharge planners, I believe a palliative approach to his care is most appropriate. 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 They may also be the cause for his right sided neck discomfort as well. Given the rate is under the VT detection rate of his defibrillator I would try to add amiodarone 400 mg 3 times daily for 5 days, then 400 mg daily for a month, then 200 mg thereafter. His Coreg was increased yesterday to 37-1/2 mg twice daily from 25 mg twice daily. He should remain on the rest of his medical regimen. As an outpatient he was on an Entresto. We will have to watch his renal function closely given his acute on chronic kidney disease. He seems to be diuresing well with Bumex and I would continue with this. I would also recommend a palliative care consult given the complexity of his medical problems understanding that he is not a candidate for surgical resection of his renal cell carcinoma nor is he a surgical or percutaneous candidate for his coronary artery disease, cardiomyopathy, and mitral regurgitation. Well over 30 minutes of the time of today's visit was discussed with the patient and consultants. Laboratory Results Last 24 Hours Test 03/27/18 11:20 03/27/18 11:37 03/27/18 13:09 03/27/18 16:23 Bedside Glucose 178 mg/dl 234 mg/dl White Blood Count 10.16 K/uL 8.20 K/uL Red Blood Count 4.72 M/uL 4.61 M/uL Hemoglobin 14.8 g/dL 14.4 g/dL Hematocrit 44.4 % 43.0 % Mean Corpuscular Volume 94.1 fL 93.3 fL Mean Corpuscular Hemoglobin 31.4 pg 31.2 pg Mean Corpuscular Hemoglobin Concent 33.3 g/dl 33.5 g/dl Platelet Count 167 K/uL 173 K/uL Mean Platelet Volume 10.1 fL 9.9 fL Neutrophils (%) (Auto) 88.2 % Lymphocytes (%) (Auto) 8.4 % Monocytes (%) (Auto) 2.5 % Eosinophils (%) (Auto) 0.1 % Basophils (%) (Auto) 0.1 % Neutrophils # (Auto) 8.97 K/uL Lymphocytes # (Auto) 0.85 K/uL Monocytes # (Auto) 0.25 K/uL Eosinophils # (Auto) 0.01 K/uL Basophils # (Auto) 0.01 K/uL RDW Standard Deviation 47.4 fL 47.5 fL RDW Coefficient of Variation 13.7 % 13.9 % Immature Granulocyte % (Auto) 0.7 % Immature Granulocyte # (Auto) 0.07 K/uL Prothrombin Time 11.8 SECONDS 11.9 SECONDS Prothromb Time International Ratio 1.1 1.1 Activated Partial Thromboplast Time 23.5 SECONDS 23.6 SECONDS Partial Thromboplastin Ratio 0.9 0.9 Sodium Level 139 mmol/L Potassium Level 4.5 mmol/L Chloride Level 106 mmol/L Carbon Dioxide Level 27 mmol/L Anion Gap 6.0 mmol/L Blood Urea Nitrogen 33 mg/dl Creatinine 1.81 mg/dl Est Creatinine Clear Calc Drug Dose 49.5 ml/min Estimated GFR () 44.8 Estimated GFR (Non- 38.6 BUN/Creatinine Ratio 18.1 Random Glucose 173 mg/dl Lactic Acid Level 2.2 mmol/L Calcium Level 8.5 mg/dl Phosphorus Level 3.3 mg/dl Magnesium Level 2.1 mg/dl Total Bilirubin 0.9 mg/dl Direct Bilirubin 0.2 mg/dl Aspartate Amino Transf (AST/SGOT) 51 U/L Alanine Aminotransferase (ALT/SGPT) 47 U/L Alkaline Phosphatase 47 U/L Troponin I 1.800 ng/ml Pro-B-Type Natriuretic Peptide 3040 pg/ml Total Protein 7.1 gm/dl Albumin 3.7 gm/dl Globulin 3.4 gm/dl Albumin/Globulin Ratio 1.1 Test 03/27/18 18:51 03/27/18 20:36 03/27/18 21:08 03/28/18 03:25 Troponin I 2.930 ng/ml 3.830 ng/ml Bedside Glucose 256 mg/dl Activated Partial Thromboplast Time 40.5 SECONDS 183.7 SECONDS Partial Thromboplastin Ratio 1.6 7.1 White Blood Count 16.61 K/uL Red Blood Count 4.45 M/uL Hemoglobin 13.4 g/dL Hematocrit 41.5 % Mean Corpuscular Volume 93.3 fL Mean Corpuscular Hemoglobin 30.1 pg Mean Corpuscular Hemoglobin Concent 32.3 g/dl Platelet Count 174 K/uL Mean Platelet Volume 10.6 fL Neutrophils (%) (Auto) 83.8 % Lymphocytes (%) (Auto) 8.5 % Monocytes (%) (Auto) 7.2 % Eosinophils (%) (Auto) 0.0 % Basophils (%) (Auto) 0.0 % Neutrophils # (Auto) 13.91 K/uL Lymphocytes # (Auto) 1.42 K/uL Monocytes # (Auto) 1.20 K/uL Eosinophils # (Auto) 0.00 K/uL Basophils # (Auto) 0.00 K/uL RDW Standard Deviation 47.3 fL RDW Coefficient of Variation 13.8 % Immature Granulocyte % (Auto) 0.5 % Immature Granulocyte # (Auto) 0.08 K/uL Sodium Level 138 mmol/L Potassium Level 4.7 mmol/L Chloride Level 105 mmol/L Carbon Dioxide Level 27 mmol/L Anion Gap 6.0 mmol/L Blood Urea Nitrogen 40 mg/dl Creatinine 1.97 mg/dl Est Creatinine Clear Calc Drug Dose 45.5 ml/min Estimated GFR () 40.4 Estimated GFR (Non- 34.9 BUN/Creatinine Ratio 20.4 Random Glucose 194 mg/dl Calcium Level 8.6 mg/dl Phosphorus Level 4.6 mg/dl Magnesium Level 2.2 mg/dl Test 03/28/18 05:08 03/28/18 05:45 03/28/18 06:33 03/28/18 07:17 Activated Partial Thromboplast Time 102.5 SECONDS 54.9 SECONDS Partial Thromboplastin Ratio 3.9 2.1 Urine Color YELLOW Urine Appearance CLEAR Urine pH 5.0 Urine Specific [place] 1.026 Urine Protein NEG Urine Glucose (UA) 1+ Urine Ketones NEG Urine Occult Blood NEG Urine Nitrite NEG Urine Bilirubin NEG Urine Urobilinogen NEG Urine Leukocyte Esterase NEG Urine WBC (Auto) 1-5 /hpf Urine RBC (Auto) 0-4 /hpf Urine Hyaline Casts (Auto) 1-5 /lpf Urine Epithelial Cells (Auto) 5-10 /lpf Urine Bacteria (Auto) NEG Bedside Glucose 154 mg/dl Test 03/28/18 09:33 03/28/18 09:47 Lactic Acid Level 2.4 mmol/L
[2018-03-28] MEDS: AMIODARONE 200 MG TAB PO SCH ×3 (11:36→20:38)
[2018-03-28 13:33] LABS: PTT PATIENT 57.1 SECONDS (21.0-31.0)
[2018-03-29 03:49] VITALS: BP 100/68; PULSE 63; TEMP 36.5; O2SAT 98
[2018-03-29 06:26] LABS: BASO % 0.1 %; BASO ABS # 0.01 K/uL (0-0.2); EOS % 0.5 %; EOS ABS # 0.06 K/uL (0-0.5); HEMATOCRIT 40.1 % (42-52); HEMOGLOBIN 13.2 g/dL (14.0-18.0); IG# 0.05 K/uL (0.00-0.02); LYMPH % 15.7 %; LYMPH ABS # 1.76 K/uL (1.2-3.4); MEAN CELL VOLUME 94.8 fL (80-100); MEAN CORPUSCULAR HEMOGLOBIN 31.2 pg (25-34); MEAN CORPUSCULAR HGB CONC 32.9 g/dl (32-36); MEAN PLATELET VOLUME 10.4 fL (7.4-10.4); MONO % 9.1 %; MONO ABS # 1.02 K/uL (0.11-0.59); NEUT % 74.2 %; NEUT ABS # 8.33 K/uL (1.4-6.5); PLATELET COUNT 159 K/uL (130-400); RED CELL DISTRIBUTION WIDTH CV 14.3 % (11.5-14.5); RED CELL DISTRIBUTION WIDTH SD 48.9 fL (36.4-46.3); WHITE BLOOD COUNT 11.23 K/uL (4.8-10.8)
[2018-03-29 06:53] VITALS: BP 102/68; PULSE 60; TEMP 36.5; O2SAT 98
[2018-03-29 06:53] LABS: PTT PATIENT 68.2 SECONDS (21.0-31.0)
[2018-03-29 07:04] LABS: CALCIUM 8.3 mg/dl (8.5-10.1); CREATININE 1.66 mg/dl (0.60-1.40); POTASSIUM 4.1 mmol/L (3.5-5.1)
[2018-03-29] MEDS: INSULIN HUMAN REGULAR SC SCH ×3 (07:56→17:01)
[2018-03-29] MEDS: AMIODARONE 200 MG TAB PO SCH ×2 (07:57→14:43)
[2018-03-29] MEDS: ATORVASTATIN 40 MG TAB PO SCH (07:58)
[2018-03-29] MEDS: CYANOCOBALAMIN 500 MCG TAB (VIT B-12) PO SCH (07:58)
[2018-03-29] MEDS: CHOLECALCIFEROL 1000 INTER.UNIT TAB PO SCH (07:58)
[2018-03-29] MEDS: CARVEDILOL 12.5 MG TAB PO SCH (07:58)
[2018-03-29] MEDS: ASPIRIN 81 MG ECTAB PO SCH (07:58)
[2018-03-29] MEDS: LISINOPRIL 5 MG TAB PO SCH (07:59)
[2018-03-29] MEDS: BUMETANIDE 1 MG TAB PO SCH (07:59)
[2018-03-29] MEDS: GABAPENTIN 100 MG CAP PO SCH ×2 (07:59→14:43)
[2018-03-29] MEDS: ACETAMINOPHEN/CODEINE 300/30MG TAB PO PRN ×2 (08:03→14:55)
--- NOTE | 2018-03-29 09:27 | Cardiology Follow-Up ---
Subjective General Date of Service: March 29, 2018. Pt evaluation today including: conversation w/ patient, chart review, lab review History of Present Illness The patient is a 62 year old male Allergies Coded Allergies: Budesonide (Verified Allergy, Unknown, TACHYCARDIA, SOB, 07/28/17) Carbamazepine (Verified Allergy, Unknown, TACHYCARDIA, PANIC ATTACK, ) Cyclobenzaprine (Verified Allergy, Unknown, UNK, 07/28/17) Doxycycline (Verified Allergy, Unknown, ABD PAIN, 07/28/17) Fluticasone (Verified Allergy, Unknown, UNK, 07/28/17) Formoterol (Verified Allergy, Unknown, TACHYCARDIA, SOB, 07/28/17) Salmeterol (Verified Allergy, Unknown, ANAPHYLAXIS, 07/28/17) Sodium Propionate (Verified Allergy, Unknown, SHORTNESS OF BREATH, 07/28/17) Digoxin (Verified Adverse Reaction, Unknown, BACK AND STOMACH PAIN, 07/28/17 ) Metformin (Verified Adverse Reaction, Unknown, MUSCLE ACHES IN BVACK AND KIDNEYS, 07/28/17) Social History Smoking Status: Former Smoker Hx Tobacco Use In Past Year?: No Hx Alcohol Use - Type And Amou: No Hx Substance Use - Type And Am: No Problem List Medical Problems: (1) Diabetes mellitus out of control Status: Acute (2) Hyperkalemia Status: Acute (3) Hypotension Status: Acute (4) Left sided chest pain Status: Acute (5) Pulmonary edema Status: Acute (6) Right kidney mass Status: Acute Review of Systems Respiratory: + cough, + sputum (blood tinged), + wheezing, No shortness of breath, No dyspnea at rest Cardiac: No chest pain, No edema, No palpitations Physical Exam Vital Signs Last Vital Signs Documentation Date Time Temp Pulse Resp B/P (MAP) Pulse Ox O2 Delivery O2 Flow Rate FiO2 03/29/18 06:53 36.5 60 18 102/68 (79) 98 BiPAP 03/28/18 23:14 30 03/28/18 15:07 7.0 Physical Exam Constitutional: General Apperance: obese Level of Distress: NAD Psychiatric: Mental Status: active & alert, normal mood, normal affect Lungs: Auscultation: no rales/crackles, no rhonchi, inspiratory wheezing, expiratory wheezing Cardiovascular: Heart Auscultation: RRR, II/ WSM Abdomen: Bowel Sounds: normal Inspection & Palpation: soft, no tenderness, guarding & rebound, distended ( chronically) Extremities: no edema Assessment and Plan Assessment and Plan ASSESSMENT: 1. [id number] Combined Systolic and Diastolic CHF -- likely exacerbated by dietary salt indiscretion. 2. 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 3. Cardiomyopathy with most recent LVEF being measured at 30%-35%. 4. 3 vessel CAD with with cardiac catheterization suggesting severe left main ostial LAD and circumflex disease 5. Grade 2 LV Diastolic Dysfunction. 6. Chronic obstructive pulmonary disease. 7. Chronic kidney disease now with a baseline creatinine of 1.5 8. In reviewing his monitor from 03/27 his rhythm appears to be consistent with runs of sustained VT at approximately 140 bpm which is below the detection zone of his defibrillator; short runs of NSVT from this am 9. 4.2 cm enhancing mid upper pole right renal mass and a 12 mm enhancing midpole left renal mass consistent with renal cell carcinoma turned down by urology for surgery at [facility] 10 diabetes mellitus type 2 11. Non-ST elevation myocardial infarction As I discussed with the nursing staff, hospitalist, and discharge planners, I believe a palliative approach to his care is most appropriate. 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 They may also be the cause for his right sided neck discomfort as well. Given the rate is under the VT detection rate of his defibrillator I would try to add amiodarone 400 mg 3 times daily for 5 days, then 400 mg daily for a month, then 200 mg thereafter. Will turn on VT monitor zone in the office to see if he is having more episodes Given his low BP and need to go back on Entresto (49/51) , I would reduce the coreg to 25mg + 6.25mg tablet Will need to stop lisiopril and reinitiate entresto after 36 hours off lisinopril D/C Heparin with blood tinge sputum; Known non operable three vessel CAD Looks Euvolemic I would also recommend a palliative care consult given the complexity of his medical problems understanding that he is not a candidate for surgical resection of his renal cell carcinoma nor is he a surgical or percutaneous candidate for his coronary artery disease, cardiomyopathy, and mitral regurgitation. D/W primary service Laboratory Results Last 24 Hours Test 03/28/18 09:33 03/28/18 10:20 03/28/18 11:12 03/28/18 12:57 Lactic Acid Level 2.4 mmol/L Troponin I 6.240 ng/ml Bedside Glucose 242 mg/dl Activated Partial Thromboplast Time 57.1 SECONDS Partial Thromboplastin Ratio 2.2 Test 03/28/18 16:22 03/28/18 19:59 03/29/18 06:11 Bedside Glucose 125 mg/dl 174 mg/dl White Blood Count 11.23 K/uL Red Blood Count 4.23 M/uL Hemoglobin 13.2 g/dL Hematocrit 40.1 % Mean Corpuscular Volume 94.8 fL Mean Corpuscular Hemoglobin 31.2 pg Mean Corpuscular Hemoglobin Concent 32.9 g/dl Platelet Count 159 K/uL Mean Platelet Volume 10.4 fL Neutrophils (%) (Auto) 74.2 % Lymphocytes (%) (Auto) 15.7 % Monocytes (%) (Auto) 9.1 % Eosinophils (%) (Auto) 0.5 % Basophils (%) (Auto) 0.1 % Neutrophils # (Auto) 8.33 K/uL Lymphocytes # (Auto) 1.76 K/uL Monocytes # (Auto) 1.02 K/uL Eosinophils # (Auto) 0.06 K/uL Basophils # (Auto) 0.01 K/uL RDW Standard Deviation 48.9 fL RDW Coefficient of Variation 14.3 % Immature Granulocyte % (Auto) 0.4 % Immature Granulocyte # (Auto) 0.05 K/uL Activated Partial Thromboplast Time 68.2 SECONDS Partial Thromboplastin Ratio 2.6 Sodium Level 138 mmol/L Potassium Level 4.1 mmol/L Chloride Level 105 mmol/L Carbon Dioxide Level 27 mmol/L Anion Gap 6.0 mmol/L Blood Urea Nitrogen 44 mg/dl Creatinine 1.66 mg/dl Est Creatinine Clear Calc Drug Dose 54.3 ml/min Estimated GFR () 49.7 Estimated GFR (Non- 42.9 BUN/Creatinine Ratio 26.2 Random Glucose 120 mg/dl Calcium Level 8.3 mg/dl Phosphorus Level 4.0 mg/dl Magnesium Level 2.3 mg/dl
[2018-03-29 11:51] VITALS: BP 106/68; PULSE 62; TEMP 36.5; O2SAT 93
[2018-03-29 15:00] VITALS: BP 99/68; PULSE 71; TEMP 36.4; O2SAT 92
[2018-03-29] MEDS ORDERED: SACU1TAB7 PO (17:18)
[2018-03-29] MEDS ORDERED: CRD200 PO (17:18)
[2018-03-29] MEDS ORDERED: CRG125 PO (17:19)
[2018-03-29] MEDS ORDERED: NRN100 PO (17:19)
--- NOTE | 2018-03-29 17:22 | Discharge Instructions ---
Discharge Instructions Date of Service March 29, 2018. Admission Reason for Admission: Sepsis,Resp Failure Discharge Discharge Diagnosis / Problem: Congestive heart failure Discharge Goals Goal(s): Decrease discomfort, Improve function Activity Recommendations Activity Limitations: resume your previous activity . Instructions / Follow-Up Instructions / Follow-Up F/U with PCP in 1 week. F/U with fund development manager in 1-2 weeks Current Hospital Diet Patient's current hospital diet: AHA Diet (Heart Healthy), Diabetes Type 2 Diet Discharge Diet Recommended Diet: AHA Diet (Heart Healthy), Diabetes Type 2 Diet Pending Studies Studies pending at discharge: no Medical Emergencies . Who to Call and When: Medical Emergencies: If at any time you feel your situation is an emergency, please call 911 immediately. . Non-Emergent Contact Non-Emergency issues call your: Primary Care Provider Call Non-Emergent contact if: you have any medication questions . . "Provider Documentation" section prepared by Fili Mooney. .
--- NOTE | 2018-03-29 17:50 | Palliative Care Consultation ---
Consultation Date of Consultation: March 29, 2018. Requesting Physician: Dr Mooney Attending Physician: Dr Mooney Reason for Consultation: Determine goals of care and discussed CODE STATUS History of Present Illness Patient is a 62-year-old gentleman who was admitted on 03 27 from [place] [facility] for acute onset of shortness of breath, CHF, pulmonary edema. Symptoms resolved with BiPAP and diuresis. Patient was noted to have an elevated troponin-1.8 on admission, peaked at 6.24 on 03/28. Chest x-ray showed mild CHF. Patient with complex past medical history including CHF with an EF of 30- 35%, A. fib, hypertension with hyperlipidemia, multivessel CAD that is nonoperable, COPD, diabetes, chronic kidney disease stage III, hep C, 4.2 cm renal mass consistent with carcinoma. Patient reports shortness of breath was acute onset in the middle of the night, he acknowledges increased anxiety with episodes, he frequently improves with BiPAP and diuresis. Discussed with patient obtaining BiPAP for home treatment to avoid further hospitalizations if possible. Patient aware of his diminished heart function as well as nonoperable status of his coronary artery disease as well as his renal mass. Patient reports his renal mass is being followed and has not increased in size. He had a pacemaker/AICD placed in 2005, as well as a history of cardiac stent placement. Patient voiced understanding that his condition will only decline as time progresses, discussed CODE STATUS as well as a ventral hospice care as he continues to decline. 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 Discuss goals of care with emphasis on preventing future hospitalizations. Patient's diabetes is fairly well controlled with an A1c of 6.8. Patient is being medically managed by cardiology. Social History Smoking Status: Former Smoker History of Alcohol Use: No Drug Use: none Marital Status: Housing Status: lives with family ( and 2 adult children within the home) Occupation Status: employed (Self-employed, works with ) Review of Systems Constitutional: No fever Eyes: No worsening of vision ENT: No hearing loss Respiratory: + cough, + wheezing, + dyspnea on exertion Cardiac: No chest pain, No edema Abdomen: No pain Male : No dysuria Neurologic: No memory loss, No weakness Psychiatric: + anxiety (With acute episodes of shortness of breath and with CPAP) Endo: No fatigue Allergies Coded Allergies: Budesonide (Verified Allergy, Unknown, TACHYCARDIA, SOB, 07/28/17) Carbamazepine (Verified Allergy, Unknown, TACHYCARDIA, PANIC ATTACK, ) Cyclobenzaprine (Verified Allergy, Unknown, UNK, 07/28/17) Doxycycline (Verified Allergy, Unknown, ABD PAIN, 07/28/17) Fluticasone (Verified Allergy, Unknown, UNK, 07/28/17) Formoterol (Verified Allergy, Unknown, TACHYCARDIA, SOB, 07/28/17) Salmeterol (Verified Allergy, Unknown, ANAPHYLAXIS, 07/28/17) Sodium Propionate (Verified Allergy, Unknown, SHORTNESS OF BREATH, 07/28/17) Digoxin (Verified Adverse Reaction, Unknown, BACK AND STOMACH PAIN, 07/28/17 ) Metformin (Verified Adverse Reaction, Unknown, MUSCLE ACHES IN BVACK AND KIDNEYS, 07/28/17) Medications Current Inpatient Medications Medications (Trade) Dose Ordered Sig/Pearl Route Start Time Stop Time Status Last Admin Dose Admin Insulin Human Regular (novoLIN-R) SLIDING SCALE IF C... ACHS SC 03/27/18 11:00 04/26/18 10:59 03/29/18 17:01 1 UNITS Glucose (Glucose 40% Gel) 15-30 GRAMS 15 GRAMS... UD PRN PO 03/27/18 11:00 04/26/18 10:59 Glucose (Glucose Chew Tab) 4-8 Tablets 4 Tabl... UD PRN PO 03/27/18 11:00 04/26/18 10:59 Dextrose (Dextrose 50% 50ML Syringe) 25-50ML 25ML FOR ... UD PRN IV 03/27/18 11:00 04/26/18 10:59 Glucagon (Glucagon Inj) 1 mg UD PRN SQ 03/27/18 11:00 04/26/18 10:59 Carbohydrates (Carbohydrates For Hypoglycemia) 15-30 GRAMS 15 grams if BSG 54-69... UD PRN PO 03/27/18 11:00 04/26/18 10:59 Acetaminophen/ Codeine Phosphate (Tylenol w/ Codeine #3 Tab) 1 tab Q6 PRN PO 03/27/18 11:00 04/26/18 10:59 03/29/18 14:55 1 TAB Albuterol (Ventolin Hfa Inhaler) 2 puffs Q6H PRN INH 03/27/18 11:00 04/26/18 10:59 Aspirin (Ecotrin Tab) 81 mg QAM PO 03/28/18 09:00 04/27/18 08:59 03/29/18 07:58 81 MG Atorvastatin Calcium (Lipitor Tab) 80 mg DAILY PO 03/28/18 09:00 04/27/18 08:59 03/29/18 07:58 80 MG Bumetanide (Bumex Tab) 2 mg QAM PO 03/28/18 09:00 04/27/18 08:59 03/29/18 07:59 2 MG Cyanocobalamin (Vitamin B-12 Tab) 500 mcg QAM PO 03/28/18 09:00 04/27/18 08:59 03/29/18 07:58 500 MCG Cholecalciferol (Vitamin D Tab) 1,000 inter.unit BID PO 03/27/18 21:00 04/26/18 20:59 03/29/18 07:58 1,000 INTER.UNIT Gabapentin (Neurontin Cap) 100 mg TID PO 03/27/18 14:00 04/26/18 13:59 03/29/18 14:43 100 MG Metoprolol Tartrate (Lopressor Iv) 5 mg Q4 PRN IV 03/27/18 16:45 04/26/18 16:44 Nitroglycerin (Nitrostat Tab) 0.4 mg PRN PRN SL 03/27/18 16:45 04/26/18 16:44 Amiodarone HCl (Cordarone Tab) 400 mg TID PO 03/28/18 10:15 04/27/18 10:14 03/29/18 14:43 400 MG Carvedilol (Coreg Tab) 25 mg BID PO 03/29/18 21:00 04/26/18 20:59 Sacubitril/ Valsartan (Entresto 49-51 Mg) 1 tab BID PO 03/30/18 21:00 04/29/18 20:59 Carvedilol (Coreg Tab) 6.25 mg BID PO 03/29/18 21:00 04/28/18 20:59 Physical Exam Date Time Temp Pulse Resp B/P (MAP) Pulse Ox O2 Delivery O2 Flow Rate FiO2 03/29/18 16:00 Room Air 5/11/18 15:00 36.4 71 16 99/68 (78) 92 Room Air 03/29/18 12:00 Room Air 03/29/18 11:51 36.5 62 16 106/68 (81) 93 Room Air 03/29/18 08:00 Room Air 03/29/18 06:53 36.5 60 18 102/68 (79) 98 BiPAP 03/29/18 04:00 BiPAP 03/29/18 03:49 36.5 63 18 100/68 (79) 98 BiPAP 03/28/18 23:59 BiPAP 03/28/18 23:39 36.5 68 18 92/55 (67) 94 Room Air 03/28/18 23:14 60 98 30 03/28/18 19:30 94 Room Air 03/28/18 19:03 36.5 66 20 92/52 (65) 93 Room Air General Appearance: no apparent distress Eyes: EOMI ENT: hearing grossly normal Neck: supple Respiratory: + wheezing (Right base) Cardiovascular: regular rate, rhythm, no edema Abdomen: non tender Musculoskeletal: normal strength (5/5 throughout), normal tone Neurologic/Psychiatric: alert, normal mood/affect, oriented x 3 Skin: normal color Laboratory Results Last 24 Hours Test 03/28/18 19:59 03/29/18 06:11 03/29/18 07:20 03/29/18 16:29 Bedside Glucose 174 mg/dl 109 mg/dl 157 mg/dl White Blood Count 11.23 K/uL Red Blood Count 4.23 M/uL Hemoglobin 13.2 g/dL Hematocrit 40.1 % Mean Corpuscular Volume 94.8 fL Mean Corpuscular Hemoglobin 31.2 pg Mean Corpuscular Hemoglobin Concent 32.9 g/dl Platelet Count 159 K/uL Mean Platelet Volume 10.4 fL Neutrophils (%) (Auto) 74.2 % Lymphocytes (%) (Auto) 15.7 % Monocytes (%) (Auto) 9.1 % Eosinophils (%) (Auto) 0.5 % Basophils (%) (Auto) 0.1 % Neutrophils # (Auto) 8.33 K/uL Lymphocytes # (Auto) 1.76 K/uL Monocytes # (Auto) 1.02 K/uL Eosinophils # (Auto) 0.06 K/uL Basophils # (Auto) 0.01 K/uL RDW Standard Deviation 48.9 fL RDW Coefficient of Variation 14.3 % Immature Granulocyte % (Auto) 0.4 % Immature Granulocyte # (Auto) 0.05 K/uL Activated Partial Thromboplast Time 68.2 SECONDS Partial Thromboplastin Ratio 2.6 Sodium Level 138 mmol/L Potassium Level 4.1 mmol/L Chloride Level 105 mmol/L Carbon Dioxide Level 27 mmol/L Anion Gap 6.0 mmol/L Blood Urea Nitrogen 44 mg/dl Creatinine 1.66 mg/dl Est Creatinine Clear Calc Drug Dose 54.3 ml/min Estimated GFR () 49.7 Estimated GFR (Non- 42.9 BUN/Creatinine Ratio 26.2 Random Glucose 120 mg/dl Calcium Level 8.3 mg/dl Phosphorus Level 4.0 mg/dl Magnesium Level 2.3 mg/dl Assessment & Plan Palliative Performance Scale: 90 % (1) Renal mass Assessment & Plan: Followed at [place], not a surgical candidate (2) Dyspnea Status: Acute Assessment & Plan: Much improved with BiPAP and diuresis. Asked case management to look into seeing if patient qualifies for home BiPAP (3) Palliative care encounter Assessment & Plan: Discuss goals of care as well as CODE STATUS, patient's prognosis as well as eventual hospice care (4) Acute on chronic systolic CHF (congestive heart failure) Status: Acute Assessment & Plan: Improved with diuresis (5) Presence of combination internal cardiac defibrillator (ICD) and pacemaker Status: Chronic Assessment & Plan: Followed by cardiology (6) Diabetes Status: Chronic Assessment & Plan: Good control-hemoglobin A1c 6.8 (7) COPD (chronic obstructive pulmonary disease) Status: Chronic Assessment & Plan: On O2 at night Counseling and Coordination Total time spent 55 minutes with greater than 50% of the time spent at bedside discussing goals of care, CODE STATUS and prognosis.
[2018-03-29] MEDS ORDERED: CARVEDILOL 12.5 MG TAB PO SCH (21:00)
[2018-03-29] MEDS ORDERED: CARVEDILOL 6.25 MG TAB PO SCH (21:00)
[2018-03-30] MEDS ORDERED: SACUBITRIL-VALSARTAN 49-51 MG TAB PO SCH (21:00)
--- NOTE | 2018-04-02 11:29 | Discharge Summary ---
Discharge Summary Date of Service March 29, 2018. Discharge Summary Admission Date: March 27, 2018 at 10:36 Discharge Date: March 29, 2018 Discharge Disposition: Home Principal Diagnosis: CHF exacerbation Problems/Secondary Diagnoses: as noted below Consultations: ASSESSMENT: 1. [id number] Combined Systolic and Diastolic CHF -- likely exacerbated by dietary salt indiscretion. 2. 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 3. Cardiomyopathy with most recent LVEF being measured at 30%-35%. 4. 3 vessel CAD with with cardiac catheterization suggesting severe left main ostial LAD and circumflex disease 5. Grade 2 LV Diastolic Dysfunction. 6. Chronic obstructive pulmonary disease. 7. Chronic kidney disease now with a baseline creatinine of 1.5 8. In reviewing his monitor from 03/27 his rhythm appears to be consistent with runs of sustained VT at approximately 140 bpm which is below the detection zone of his defibrillator; short runs of NSVT from this am 9. 4.2 cm enhancing mid upper pole right renal mass and a 12 mm enhancing midpole left renal mass consistent with renal cell carcinoma turned down by urology for surgery at [facility] 10 diabetes mellitus type 2 11. Non-ST elevation myocardial infarction As I discussed with the nursing staff, hospitalist, and discharge planners, I believe a palliative approach to his care is most appropriate. It seems that his episodes of anxiety and right-sided chest discomfort occur with ventricular arrhythmias on his teletypesetter monitor. They may also be the cause for his right sided neck discomfort as well. Given the rate is under the VT detection rate of his defibrillator I would try to add amiodarone 400 mg 3 times daily for 5 days, then 400 mg daily for a month, then 200 mg thereafter. Will turn on VT monitor zone in the office to see if he is having more episodes Given his low BP and need to go back on Entresto (49/51) , I would reduce the coreg to 25mg + 6.25mg tablet Will need to stop lisiopril and reinitiate entresto after 36 hours off lisinopril D/C Heparin with blood tinge sputum; Known non operable three vessel CAD Looks Euvolemic I would also recommend a palliative care consult given the complexity of his medical problems understanding that he is not a candidate for surgical resection of his renal cell carcinoma nor is he a surgical or percutaneous candidate for his coronary artery disease, cardiomyopathy, and mitral regurgitation. D/W primary service Medication Reconciliation New Medications: Sacubitril-Valsartan (Entresto 49-51 mg) 1 Tab Tab 1 TAB PO BID for 30 Days, #60 TAB 1 Refill Start medicine Sunday in the evening. Amiodarone HCl (Amiodarone HCl) 200 Mg Tab 400 MG PO UD for 30 Days, #37 TAB 3 times daily for 3 more days, then 400 mg daily for a month Carvedilol (Carvedilol) 12.5 Mg Tab 37.5 MG PO BID for 30 Days, #180 TAB Gabapentin (Gabapentin) 100 Mg Cap 100 MG PO TID for 30 Days, #90 CAP Continued Medications: Acetaminophen/Codeine (Tylenol W/Codeine #3) 300 Mg/30 Mg Tab 1 TAB PO Q6 PRN for Pain, TAB Albuterol Hfa (Ventolin Hfa) 200 Puffs/14118 Mcg Aers 2-4 PUFFS INH Q6H PRN for Wheezing, #1 INHALER Aspirin (Aspirin 81) 81 Mg Tab 81 MG PO QAM Atorvastatin (Lipitor) 80 Mg Tab 80 MG PO DAILY, TAB Bumetanide (Bumetanide) 1 Mg Tab 2 MG PO QAM for 30 Days, #60 TAB Cholecalciferol (Vitamin D3) 1,000 Unit Tab 1000 UNITS PO BID Coenzyme Q10 (Ubidecarenone) (Co Q10) 50 Mg Cap 50 MG PO QAM Cyanocobalamin (Vitamin B-12) 500 Mcg Tab 500 MCG PO QAM, TAB Glimepiride (Amaryl) 2 Mg Tab 2 MG PO DAILY, TAB Ipratropium-Albuterol (Combivent Respimat) 1 Aer Aer #4 [place]-3 Fatty Acids (Fish Oil) 1 Cap Cap 1 CAP PO QAM Discontinued Medications: Carvedilol (Coreg) 25 Mg Tab 25 MG PO BID Lisinopril (Zestril) 5 Mg Tab 5 MG PO QAM, TAB Discharge Exam ROS Constitutional: No fever, No chills, No sweats Eyes: No worsening of vision ENT: No hearing loss, No unusual epistaxis, No nasal symptoms Cardiovascular: + orthopnea, No chest pain Abdomen: No pain, No nausea, No vomiting Musculoskeletal: No joint pain Genitourinary - Male: No hematuria, No dysuria Neurologic: No memory loss, No paralysis, No weakness Psychiatric: No depression symptoms Endocrine: No fatigue Hematologic / Lymphatic: No abnormal bleeding/bruising Integumentary: No rash Allergic / Immunologic: No environmental allergies Physical Exam General Appearance: WD/WN, no apparent distress Eyes: normal inspection ENT: normal ENT inspection Neck: supple, no adenopathy Respiratory/Chest: chest non-tender, + decreased breath sounds, improved wheezing Cardiovascular: regular rate, rhythm, + systolic murmur Abdomen: normal bowel sounds, non tender, soft Extremities: + swelling Neurologic/Psychiatric: alert, oriented x 3 Skin: normal color Lymphatic: no adenopathy Hospital Course 61 y/o male with a history of combined CHF, paroxysmal AF, HTN, HLD, CAD, pacemaker, COPD, DM II, CKD III, renal mass. The pt presents as a direct admission from [place]. He was initially evaluated in the [place] ER for respiratory distress due to CHF exacerbation with pulmonary edema. As the pt is managed by specialists - including cardiology - at [facility], a decision was made to transfer him for further management. On arrival to the ICU at [facility], he appears stable and any respiratory distress has resolved. He denies CP, a productive cough, nausea, vomiting or fevers. He confirms he has improved markedly from the time he presented at [place]. Initial labs are notable for an elevated troponin and a mildly elevated lactic acid. 1) CHF exacerbation - Patient was initally on iv BUMEX. This was titrated to PO. I/O, daily weight, cont Coreg, Lisinopril Negative 3 liters. Now euvolemic. May be discharged 2) Elevated trop/CAD - may be due to demand - placed on full-dose Heparin pending evaluation by cardiology - cont B juanito, Statin, ASA -changed betablocker dose. -trop peaked at 3. -no interventions recommended at this time due to his other comorbidities. 3) CKD III - creat is currently at baseline 4) HTN - cont Lisinopril, Carvedilol 5) HPL - Cont Atorvastatin 6)h/o renal cell cancer consulted pallaitive care. patient does not wish to pursue hospice at this time. 7)neck pain: patient on gabapentin 8)Patient having episodes of Vent. tachycardia. will place patient on amiodarone, and have patient f/u with cardio within a month Total Time Spent: Greater than 30 minutes This includes examination of the patient, discharge planning, medication reconciliation, and communication with other providers. Discharge Instructions Please refer to the electronic Patient Visit Report (Discharge Instructions) for additional information. Follow-Up as noted in discharge instructions Additional Copies To Karen Pablo M.D.
== END 2018-03-29 18:30 | disposition home or self-care (01) | DRG 280 ==
LOC: C.MSICU 10:36 → C.2T 14:02
PROVIDERS: ADMIT Internal Medicine Sports Medicine; ATTEND Internal Medicine Sports Medicine
DX: I50.43 Acute on chronic combined systolic (congestive) and diastolic (congestive) heart failure (principal); J96.90 Respiratory failure, unspecified, unspecified whether with hypoxia or hypercapnia; I21.A1 Myocardial infarction type 2; I13.0 Hypertensive heart and chronic kidney disease with heart failure and stage 1 through stage 4 chronic kidney disease, or unspecified chronic kidney disease; I42.9 Cardiomyopathy, unspecified; I47.2 Ventricular tachycardia; C64.1 Malignant neoplasm of right kidney, except renal pelvis; I42.6 Alcoholic cardiomyopathy; I42.7 Cardiomyopathy due to drug and external agent; E11.65 Type 2 diabetes mellitus with hyperglycemia; I48.0 Paroxysmal atrial fibrillation; I34.0 Nonrheumatic mitral (valve) insufficiency; E78.5 Hyperlipidemia, unspecified; I25.10 Atherosclerotic heart disease of native coronary artery without angina pectoris; Z95.810 Presence of automatic (implantable) cardiac defibrillator; E11.9 Type 2 diabetes mellitus without complications; N18.3 Chronic kidney disease, stage 3 (moderate); J44.9 Chronic obstructive pulmonary disease, unspecified; Z83.3 Family history of diabetes mellitus; Z82.49 Family history of ischemic heart disease and other diseases of the circulatory system; Z87.891 Personal history of nicotine dependence; Z88.8 Allergy status to other drugs, medicaments and biological substances; F10.10 Alcohol abuse, uncomplicated; F14.10 Cocaine abuse, uncomplicated

== ENCOUNTER 2019-07-10 09:01 | Inpatient (IN) ==
[2019-07-10] MEDS ORDERED: ONDANSETRON INJ 2 MG/ML 2 ML VIAL IV PRN (12:58)
--- NOTE | 2019-07-10 13:53 | History & Physical Report ---
Date of Service July 10, 2019 Assessment & Plan (1) Acute respiratory failure: 63 y/o M presents from OSH with concerns of respiratory distress 2/2 acute on chronic CHF exacerbation, now presently stable. Acute respiratory failure - Patient was transferred from OSH with the concern of acute respiratory failure likely from acute heart failure. This is an acute on chronic process. Likely exacerbated by very salty intake per pt - Has chronic systolic CHF with pacer/Defib - follows with Dr. Jose -states rarely uses O2 at home -titrated down to 4L NC, breathing comfortably at rest -Cont ASA 81 mg daily; Carvedilol 37.5 mg BID; Entresto BID, Bumex 2 mg daily -Ativan 0.5 mg PRN for anxiety given on d/c last admission, helped his breathing. Does not appear to need on this admission -This is end-stage from a cardiac standpoint with only option is medical man agement and palliative approach COPD -stable - duonebs 1 unit dose in nebilizer qid prn -no wheezing on exam today, no distress Afib - Currently paced on monitor - Mexiletine 150 mg BID, Amiodarone 200 mg, Carvedilol 37.5 mg BID - No chronic AC. Will look at outpt records to confirm and see why not on AC Diabetes - Cont oral hypoglycemic agents and will use ISS Renal mass - Has H/O renal mass and deemed inoperable given his chronic co-morbidities and risk - no current urology symptoms - it is suspected to be malignant ANDREW -CPAP at night FEN/GI: DM diet DVT prophylaxis: Heparin FULL CODE Disposition: Likely home on discharge tomorrow. 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 Pt states woke up from sleep with SOB and diaphoresis. Last such occurrence was in April of this year and pt has h/o flash pulmonary edema, which is what this felt like. Called EMS and transported him to OSH. On arrival was tachypnic, hypertensive, slightly somnolent. Denied any CP, palpitations, F/N/V/D. Was started on BiPAP and given 80 mg IV Lasix and started on nitro gtt. After about 2 min pt appeared and felt significantly better. In OSH ER: EKG showed paced ventricular rhythm; CXR- diffuse pulmonary edema. CBC- unremarkable. CMP significant for K 5.4, Cr 2.04, otherwise unremarkable. Glu 383. Trops neg x3. BNP 2040. Lactic Acid 2.8. ABG: pH 7.25, CO2 47, bicarb 20 Family Hx: Significant for [place], HLD, DM in multiple immediate family members Surg Hx: Pacemaker 2005 Social: Former Smoker (quit 10 yrs ago, 1 PPD for 20 yrs), Former Drinker (quit 10 yrs ago), denies other illicit drug use Allergies Allergy/AdvReac Type Severity Reaction Status Date / Time budesonide Allergy Unknown TACHYCARDIA, Verified 07/28/17 07:23 SOB carbamazepine Allergy Unknown TACHYCARDIA, Verified 07/28/17 07:23 PANIC ATTACK cyclobenzaprine Allergy Unknown UNK Verified 07/28/17 07:23 doxycycline Allergy Unknown ABD PAIN Verified 07/28/17 07:23 fluticasone Allergy Unknown UNK Verified 07/28/17 07:23 formoterol Allergy Unknown TACHYCARDIA, Verified 07/28/17 07:23 SOB salmeterol Allergy Unknown ANAPHYLAXIS Verified 07/28/17 07:23 digoxin AdvReac Unknown BACK AND Verified 07/28/17 07:23 STOMACH PAIN metformin AdvReac Unknown MUSCLE Verified 07/28/17 07:23 ACHES IN BVACK AND KIDNEYS Sodium Propionate Allergy Unknown SHORTNESS Uncoded 07/28/17 07:23 OF BREATH Home Medications Home Medications Medication Instructions Recorded Confirmed Type albuterol sulfate [Ventolin HFA] 2 puff INHALATION QID PRN 10/01/18 07/10/19 History aspirin 81 mg PO DAILY 10/01/18 10/01/18 History bumetanide 1 mg PO DAILY 10/01/18 10/01/18 History carvedilol 37.5 mg PO BID 10/01/18 10/01/18 History clotrimazole-betamethasone 1 applic TOPICAL DAILY 10/01/18 10/01/18 History [Lotrisone] fluticasone propionate [Flonase 2 spray INTRANASAL DAILY 10/01/18 10/01/18 Histo ry Allergy Relief] glimepiride 2 mg PO DAILY 10/01/18 10/01/18 History ipratropium-albuterol 3 ml INHALATION QID PRN 10/01/18 10/01/18 History mexiletine 150 mg PO Q12H 10/01/18 10/01/18 History nitroglycerin [Nitrostat] 0.4 mg SUBLINGUAL DIRECTED PRN 10/01/18 10/01/18 History oxycodone-acetaminophen [Percocet] 1 tab PO Q12H PRN 10/01/18 10/01/18 History sacubitril-valsartan [Entresto] 1 tab PO BID 10/01/18 10/01/18 History amiodarone 200 mg PO DAILY 07/10/19 07/10/19 History amiodarone 200 mg tablet 200 mg PO DAILY 07/10/19 07/10/19 History bumetanide 1 mg PO BID 07/10/19 07/10/19 History carvedilol 12.5 mg PO BID 07/10/19 07/10/19 History cholecalciferol (vitamin D3) 1,000 1,000 units PO DAILY tab 07/10/19 07/10/19 History unit (25 mcg) tablet coenzyme Q10 100 mg capsule 100 mg PO DAILY cap 07/10/19 07/10/19 History glimepiride 2 mg PO DAILY 07/10/19 07/10/19 History isosorbide mononitrate ER 30 mg 30 mg PO DAILY tab 07/10/19 07/10/19 History tablet,extended release 24 hr lorazepam 0.5 mg tablet 0.5 mg PO Q6H PRN #15 tab 07/10/19 07/10/19 History mexiletine 150 mg PO BID 07/10/19 07/10/19 History oxycodone-acetaminophen 5 - 325 tab PO Q12 PRN 07/10/19 07/10/19 History tramadol 50 mg tablet 50 mg PO Q4H PRN tab 07/10/19 07/10/19 History Past Med/Surg History Medical History Asthma Diabetes mellitus, type 2 ICD (implantable cardioverter-defibrillator) in place Surgical History H/O heart surgery Family History Unknown Cardiac disorder Hypertension Diabetes Social History Preferred Language: Kinyarwanda Communication Ability: Effective Shop Service Technician Required: No Beliefs That Will Affect Care: None marital status: Current Living Situation: Spouse and Family Current Living Situation Comment: with & son Feels Safe at Home: Yes Safety Concerns: Feels Safe At This Time Smoking Status: Former smoker Hx Alcohol Use: No Hx Substance Use: No Review of Systems Review of Systems: All systems reviewed & are unremarkable except as noted in HPI & below Physical Exam Constitutional: + obese Eyes: PERRL, conjunctivae normal, anicteric sclerae ENMT: external ear and nose normal, oropharynx normal Respiratory: some crackles at bases Cardiovascular: RRR, no murmur, no edema Gastrointestinal (Abdomen): normal bowel sounds, soft, nontender, no hepatosplenomegaly Skin: no rashes, warm and dry Psychiatric: A+Ox3, euthymic affect Code Status & VTE Plan Code Status FULL CODE VTE Prophylaxis Plan VTE Prophylaxis will be ordered: Yes Supervising Physician Co-Signing Physician Notes I personally examined the patient and verified all couch points of history and exam, discussed case, and agree with decision making with Dr Gar. Feeling much better. Almost back to his normal breathing. He sheepishly admits to eating a significant amount of gravy yesterday, and then later notes that he had Faro[place] food for lunch on Sunday. He actually expresses a good understanding of sodium restriction, why it is important, and how to follow, but simply notes that he got lax because he was feeling fairly good. Vitals noted, in general he is awake and alert pleasant no distress. HEENT normocephalic atraumatic mucous members moist. Lungs show bibasilar rales, u pper lung marcelino are clear, no accessory muscle use good effort. Skin shows no rashes no pallor or icterus. No focal neuro deficits. Acute on chronic combined CHFappears to be related to sodium mediated fluid retention. He understands the importance and how to watch for, but simply had a lapse due to feeling good overall. He is improved dramatically with the Lasix given at the [place] [facility]. We will maintain him on oral Bumex. Safe and stable for [facility]. Question of atrial fibrillationpatient's not sure what his actual rhythm diagnosis is, or why he is not on anticoagulation. Thus far in chart review it appears that he actually suffers from recurrent ventricular arrhythmias, which would explain his antiarrhythmic regimen but no anticoagulation. We will continue to try to pursue further detail. PG Care Time/CCT Total # of Minutes Spent Total Time Spent with Patient: Total time spent is greater than 50% in coordination of care (as documented) at patient's floor/unit and/or counseling patient: Resident Activity Tracking Resident Involvement: Resident Care Provided Care Provided: Adult Hospital Medicine
[2019-07-10 16:37] LABS: INR 1.1 (0.9-1.1); Prothrombin Time 11.1 Seconds (9.0-12.0)
[2019-07-10] MEDS: AMIODARONE 200 MG TAB PO SCH (17:06)
[2019-07-10] MEDS: BUMETANIDE 1 MG TAB PO SCH (17:06)
[2019-07-10] MEDS: INSULIN ASPART 100 UNITS/ML 3 ML PEN SC SCH ×2 (17:08→20:38)
[2019-07-10] MEDS: ALBUT/IPRATROP 3MG/0.5MG NEB 3 ML VIAL INH PRN (19:43)
[2019-07-10] MEDS: SACUBITRIL-VALSARTAN 49/51 MG TAB PO SCH (20:35)
[2019-07-10] MEDS: CARVEDILOL 12.5 MG TAB PO SCH (20:37)
[2019-07-10] MEDS: HEPARIN SOD 5,000 UNIT/0.5 ML VIAL SQ SCH (20:38)
[2019-07-10] MEDS ORDERED: MEXILETINE HCL PO SCH (21:00)
[2019-07-10] MEDS: ACETAMINOPHEN 325 MG TAB PO PRN (22:18)
[2019-07-11 07:00] LABS: Basophils # (auto) 0.03 K/uL (0-0.2); Basophils % (auto) 0.4 %; Eosinophils # (auto) 0.16 K/uL (0-0.5); Eosinophils % (auto) 1.9 %; Hematocrit (blood only) 42.8 % (42-52); Hemoglobin 14.5 g/dL (14.0-18.0); Immature Granulocytes # (auto) 0.05 K/uL (0.00-0.02); Immature Granulocytes % (auto) 0.6 %; Lymphocytes # (auto) 1.98 K/uL (1.2-3.4); Lymphocytes % (auto) 24.1 %; Mean Corpuscular Hgb Conc 33.9 g/dL (32-36); Mean Corpuscular Volume 88.2 fL (80-100); Mean Platelet Volume 10.6 fL (7.4-10.4); Monocytes # (auto) 0.97 K/uL (0.11-0.59); Monocytes % (auto) 11.8 %; Neutrophils # (auto) 5.04 K/uL (1.4-6.5); Neutrophils % (auto) 61.2 %; Platelet Count 151 K/uL (130-400); RDW Coefficient of Variation 14.3 % (11.5-14.5); RDW Standard Deviation 46.3 fL (36.4-46.3); Red Blood Count 4.85 M/uL (4.7-6.1); White Blood Count 8.23 K/uL (4.8-10.8)
[2019-07-11 07:38] LABS: BUN Creatinine Ratio 18.7 (10-20); C Reactive Protein 0.96 mg/dl (0-0.29); Calcium 8.6 mg/dl (8.5-10.1); Creatinine Clr Calc Pharmacy 48.1 ml/min; Est GFR (African American) 44.2; Est GFR (Non-African American) 38.1; Potassium 3.8 mmol/L (3.5-5.1)
[2019-07-11] MEDS: ALBUT/IPRATROP 3MG/0.5MG NEB 3 ML VIAL INH PRN (07:39)
[2019-07-11] MEDS ORDERED: ASPIRIN 81 MG ECTAB PO SCH (09:00)
[2019-07-11] MEDS ORDERED: GLIMEPIRIDE 2 MG TAB PO SCH (09:00)
[2019-07-11] MEDS ORDERED: NON-FORMULARY MEDICATION (Coenzyme Q10 100 MG) PO SCH (09:00)
[2019-07-11] MEDS ORDERED: CHOLECALCIFEROL 1,000 UNITS TAB PO SCH (09:00)
[2019-07-11] MEDS: HEPARIN SOD 5,000 UNIT/0.5 ML VIAL SQ SCH (09:18)
[2019-07-11] MEDS: CARVEDILOL 12.5 MG TAB PO SCH (09:18)
[2019-07-11] MEDS: AMIODARONE 200 MG TAB PO SCH (09:19)
[2019-07-11] MEDS: BUMETANIDE 1 MG TAB PO SCH (09:19)
[2019-07-11] MEDS: SACUBITRIL-VALSARTAN 49/51 MG TAB PO SCH (09:19)
[2019-07-11] MEDS: INSULIN ASPART 100 UNITS/ML 3 ML PEN SC SCH ×2 (09:20→13:17)
[2019-07-11] MEDS: ACETAMINOPHEN 325 MG TAB PO PRN (11:16)
--- NOTE | 2019-07-11 12:20 | Discharge Summary ---
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 Pt states woke up from sleep with SOB and diaphoresis. Last such occurrence was in April of this year and pt has h/o flash pulmonary edema, which is what this felt like. Called EMS and transported him to OSH. On arrival was tachypnic, hypertensive, slightly somnolent. Denied any CP, palpitations, F/N/V/D. Was started on BiPAP and given 80 mg IV Lasix and started on nitro gtt. After about 2 min pt appeared and felt significantly better. In OSH ER: EKG showed paced ventricular rhythm; CXR- diffuse pulmonary edema. CBC- unremarkable. CMP significant for K 5.4, Cr 2.04, otherwise unremarkable. Glu 383. Trops neg x3. BNP 2039. Lactic Acid 2.8. ABG: pH 7.25, CO2 47, bicarb 20 Family Hx: Significant for MO, HLD, DM in multiple immediate family members Surg Hx: Pacemaker 2005 Social: Former Smoker (quit 10 yrs ago, 1 PPD for 20 yrs), Former Drinker (quit 10 yrs ago), denies other illicit drug use Principal Diagnosis acute chf Discharge Exam Constitutional + obese Eyes PERRL, conjunctivae normal, anicteric sclerae ENMT external ear and nose normal, oropharynx normal Cardiovascular RRR, no murmur, no edema Gastrointestinal (Abdomen) normal bowel sounds, soft, nontender, no hepatosplenomegaly Skin no rashes, warm and dry Psychiatric A+Ox3, euthymic affect Discharge Data Allergies Allergy/AdvReac Type Severity Reaction Status Date / Time budesonide Allergy Unknown TACHYCARDIA, Verified 07/28/17 07:23 SOB carbamazepine Allergy Unknown TACHYCARDIA, Verified 07/28/17 07:23 PANIC ATTACK cyclobenzaprine Allergy Unknown UNK Verified 07/28/17 07:23 doxycycline Allergy Unknown ABD PAIN Verified 07/28/17 07:23 fluticasone Allergy Unknown UNK Verified 07/28/17 07:23 formoterol Allergy Unknown TACHYCARDIA, Verified 07/28/17 07:23 SOB salmeterol Allergy Unknown ANAPHYLAXIS Verified 07/28/17 07:23 digoxin AdvReac Unknown BACK AND Verified 07/28/17 07:23 STOMACH PAIN metformin AdvReac Unknown MUSCLE Verified 07/28/17 07:23 ACHES IN BVACK AND KIDNEYS Sodium Propionate Allergy Unknown SHORTNESS Uncoded 07/28/17 07:23 OF BREATH Hospital Course (1) Acute respiratory failure: 63 y/o M presents from OSH with concerns of respiratory distress 2/2 acute on chronic CHF exacerbation, now presently stable. The following was the medical management during stay here: Acute respiratory failure - Patient was transferred from OSH with the concern of acute respiratory failure likely from acute heart failure. This is an acute on chronic process. Likely exacerbated by very salty intake per pt's own admission - Has chronic systolic CHF with pacer/Defib - follows with Dr. Jose -states rarely uses O2 at home -titrated down to 4L NC on admission, and eventually on RA breathing comfortably at rest -Continued ASA 81 mg daily; Carvedilol 37.5 mg BID; Entresto BID, Bumex 2 mg daily . No additional IV Lasix given here -This is end-stage from a cardiac standpoint with only option is medical management and palliative approach COPD -stable - duonebs 1 unit dose in nebilizer qid prn -no wheezing on exam here, no distress Recurrent Ventricular Arrhythmias - Currently paced on monitor -Continued Mexiletine 150 mg BID, Amiodarone 200 mg, Carvedilol 37.5 mg BID - Not on any chronic AC Diabetes - Cont oral hypoglycemic agents and ISS Renal mass - Has H/O renal mass and deemed inoperable given his chronic co-morbidities and risk - no current urology symptoms - it is suspected to be malignant ANDREW -CPAP at night At time of d/c, pt had no other acute concerns or complaints. Total Time Total Time Spent Total Time Spent (In Minutes): 30 Discharge Plan Discharge Items Patient Disposition: Home - Self-Care Reason For Visit: CHF EXACERBATION Discharge Diagnosis: acute chf Discharge Goals: Improve disease control and Improve function Activity: Per 'Additional Instructions' section Non-emergency contact: Primary Care Provider Call non-emergency contact if: you have any medication questions and your symptoms worsen Follow-up/Referrals: Roselia Flores CRNP [Primary Care Provider] - 07/17/19 7:45 am (Please, follow up at [facility] [place] Office with Roselia LANE on July 17 at 7:45 am. *The office is located in [place] next to [address]. If you need to change this appointment, call the office at [phone].) Diet: Low Sodium (2gm) Addtl Provider Instructions: You were admitted with concerns of shortness of breath and found to have an exacerbation of your CHF that was caused by dietary intake of salt. Please follow the below instructions on discharge: -You already know, but just to reiterate, please do not consume high salt meals as this puts your CHF over the top and results in many of your hospitalizations -Continue to take all your medications as usual -Please see your PCP within one week of discharge for normal follow up Prescriptions: Continued coenzyme Q10 100 mg capsule 100 mg PO DAILY RF: 0 cholecalciferol (vitamin D3) 1,000 unit (25 mcg) tablet 1,000 units PO DAILY RF: 0 isosorbide mononitrate 30 mg tablet extended release 24 hr 30 mg PO DAILY RF: 0 lorazepam 0.5 mg tablet 0.5 mg PO Q6H PRN (Reason: anxiety) Qty: 15 RF: 0 tramadol 50 mg tablet 50 mg PO Q4H PRN (Reason: pain) RF: 0 amiodarone 200 mg tablet 200 mg PO DAILY RF: 0 carvedilol 12.5 mg Tablet 37.5 mg PO BID RF: 0 ipratropium-albuterol 0.5 mg-3 mg(2.5 mg base)/3 mL Solution For Nebulization 3 ml INHALATION QID PRN (Reason: SHORTNESS OF BREATH, WHEEZING) RF: 0 aspirin 81 mg Tablet,Delayed Release (Dr/Ec) 81 mg PO DAILY RF: 0 glimepiride 2 mg Tablet 2 mg PO DAILY RF: 0 oxycodone-acetaminophen [Percocet] 5-325 mg Tablet 1 tab PO Q12H PRN (Reason: Pain) RF: 0 mexiletine 150 mg Capsule 150 mg PO Q12H RF: 0 clotrimazole-betamethasone [Lotrisone] 1-0.05 % Cream 1 applic TOPICAL DAILY RF: 0 nitroglycerin [Nitrostat] 0.4 mg Tablet, Sublingual 0.4 mg Sublingual DIRECTED PRN (Reason: Chest Pain) RF: 0 bumetanide 1 mg Tablet 1 mg PO DAILY RF: 0 albuterol sulfate [Ventolin HFA] 90 mcg/actuation Hfa Aerosol Inhaler 2 puff INHALATION QID PRN (Reason: Wheezing) RF: 0 fluticasone propionate [Flonase Allergy Relief] 50 mcg/actuation [place],Suspension 2 spray INTRANASAL DAILY RF: 0 sacubitril-valsartan [Entresto] 49-51 mg Tablet 1 tab PO BID RF: 0 amiodarone 200 mg tablet 200 mg PO DAILY RF: 0 carvedilol 12.5 mg tablet 12.5 mg PO BID RF: 0 bumetanide 1 mg tablet 1 mg PO BID RF: 0 oxycodone-acetaminophen 5-325 mg tablet 5 - 325 tab PO Q12 PRN (Reason: Pain) RF: 0 mexiletine 150 mg capsule 150 mg PO BID RF: 0 glimepiride 2 mg tablet 2 mg PO DAILY RF: 0 Stand-Alone Forms: My [facility]/Other Patient Handouts: Choices Low Salt, Heart Failure Diet Changes, Diet Low Salt Dc Discharge Orders: Discharge Order (Routine); Ordered 07/11/19 Ordered By: Jaydon Gar Admission Data Admit Date/Time: 07/10/19 12:52 Attending Provider: Jhonatan Escobar Admit Provider: Jhonatan Escobar Primary Care Provider: Roselia Flores Service: Medical Other Interventions: Discharge Summary Assessment (RN) Last Done: 07/11/19 12:38 DC Date/Time DO NOT enter until pt leaves facility: 07/11/19 14:22 Supervising Physician Co-Signing Physician Notes I personally examined the patient and verified all couch points of history and exam, discussed case, and agree with decision making with Dr Gar. Feeling much better. Re-expresses a good understanding of sodium restriction and an understanding that he needs to abide by this. Vitals noted, in general he is awake and alert pleasant no distress. HEENT normocephalic atraumatic mucous members moist. Lungs clear to auscultation b ilaterally no rales rhonchi wheezes good effort. Skin shows no rashes no pallor or icterus. No focal neuro deficits. Acute on chronic combined CHFappears to be related to sodium mediated fluid ret ention. He understands the importance and how to watch for, but simply had a lapse due to feeling good overall. Has improved back to baseline and is stable for home. Given that his exacerbation was brought on by dietary indiscretion, and resolved quite quickly, no changes to his chronic med regimen appear required. Close outpatient follow-up. Question of atrial fibrillationpatient's not sure what his actual rhythm diagnosis is, or why he is not on anticoagulation. In extensive chart review it appears that he actually suffers from recurrent ventricular arrhythmias, which would explain his antiarrhythmic regimen but no anticoagulation. Resident Activity Tracking Resident Involvement: Resident Care Provided Care Provided: Adult Hospital Medicine
== END 2019-07-11 14:22 | disposition home or self-care (01) | DRG 291 ==
LOC: 2E 12:52 → 3N 18:20
DX: Z88.1 Allergy status to other antibiotic agents; Z87.891 Personal history of nicotine dependence; E11.22 Type 2 diabetes mellitus with diabetic chronic kidney disease; E78.5 Hyperlipidemia, unspecified; Z86.59 Personal history of other mental and behavioral disorders; I13.0 Hypertensive heart and chronic kidney disease with heart failure and stage 1 through stage 4 chronic kidney disease, or unspecified chronic kidney disease; I42.7 Cardiomyopathy due to drug and external agent; T40.5X1S Poisoning by cocaine, accidental (unintentional), sequela; I50.43 Acute on chronic combined systolic (congestive) and diastolic (congestive) heart failure; Z79.82 Long term (current) use of aspirin; Z79.899 Other long term (current) drug therapy; Z79.84 Long term (current) use of oral hypoglycemic drugs; I48.91 Unspecified atrial fibrillation; C64.9 Malignant neoplasm of unspecified kidney, except renal pelvis; J44.9 Chronic obstructive pulmonary disease, unspecified; T51.0X Toxic effect of ethanol; J96.00 Acute respiratory failure, unspecified whether with hypoxia or hypercapnia; N18.3 Chronic kidney disease, stage 3 (moderate); Z95.810 Presence of automatic (implantable) cardiac defibrillator; Z88.8 Allergy status to other drugs, medicaments and biological substances; G47.33 Obstructive sleep apnea (adult) (pediatric); I49.8 Other specified cardiac arrhythmias

== ENCOUNTER 2019-07-22 12:14 | Inpatient (IN) ==
--- NOTE | 2019-07-22 13:10 | History & Physical Report ---
Date of Service July 22, 2019 Assessment & Plan (1) Acute respiratory failure: Admit to ICU Vital signs per ICU team Start aggressive diuresis pH corrected with BiPAP, continue monitoring ABGs Diuresis with 40 mg Lasix every 8 hours Strict in and out Daily weight Monitor on telemetry telemetry Continue aspirin and Coreg Continue isosorbide Procalcitonin, white blood cell and telemetry negative. Will not start antibiotics at this time but pneumonia cannot be completely ruled out. Follow white blood cell closely repeat procalcitonin in a.m. and if no improvement start empiric antibiotics after checking sputum cultures. DVT prophylaxis heparin SCDs Full code Present on Admission?: Yes (2) Acute CHF: See above Present on Admission?: Yes (3) Hypertension: See above (4) Coronary artery disease: See above (5) Stage III chronic kidney disease: Avoid nephrotoxic agents Monitor daily BUN creatinine and GFR Present on Admission?: Yes (6) Atrial fibrillation with RVR: Continue aspirin, Coreg, amiodarone. Patient also takes mexiletine at home which is not available in this pharmacy. We will try to obtain from the local pharmacy. Present on Admission?: Yes (7) Obstructive sleep apnea of adult: CPAP at night when off BIPAP and stable Present on Admission?: Yes History of Present Illness Chief Complaint: Shortness of breath Primary Care Provider: Camelia Barclay DO , calcium 9.6 phosphorus 3Patient is a 63 years old male with past medical history of coronary artery disease, cardiomyopathy with pacemaker, hypertension, congestive heart failure, COPD, diabetes mellitus type 2, obstructive sleep apnea, chronic stage kidney disease stage III, arrived via [facility] from [place] [facility] to the ICU [facility] due to acute respiratory failure with respiratory acidosis and hypercapnia and acute exacerbation of CHF. While in [place] patient refused intubation and he was placed on bicarb drip which was discontinued prior to transportation. Once with an arrived to the ICU [facility] he was tolerating BiPAP and his pH was corrected. Patient denies fever chills headache chest pain syncope near syncope dizziness, palpitation abdominal pain, nausea vomiting, diarrhea hemoptysis hematuria dysuria melena. Labs are reviewed: Viable cell count 10.39 hemoglobin 15.1 hematocrit 45 platelets 167, PT 11.4, INR 1.1 APTT 24.5, sodium 139, potassium 4.8 anion gap 7 BUN 27 creatinine 1.83, phosphorus 3 AST 24, ALT 40, alkaline phosphatase 50, troponin 0 0.015 BNP 3914 albumin 3.4 globulin 3.6 procalcitonin 0.09. Chest x-ray shows right greater than left perihilar interstitial thickening with a right basilar hazy airspace opacity. This favors asymmetric pulmonary edema. A superimposed right lower lobe pneumonia cannot be excluded. EKG shows AV dual paced rhythm. Idioventricular placement detected. Allergies Allergy/AdvReac Type Severity Reaction Status Date / Time budesonide Allergy Unknown TACHYCARDIA, Verified 07/28/17 07:23 SOB carbamazepine Allergy Unknown TACHYCARDIA, Verified 07/28/17 07:23 PANIC ATTACK cyclobenzaprine Allergy Unknown UNK Verified 07/28/17 07:23 doxycycline Allergy Unknown ABD PAIN Verified 07/28/17 07:23 fluticasone Allergy Unknown UNK Verified 07/28/17 07:23 formoterol Allergy Unknown TACHYCARDIA, Verified 07/28/17 07:23 SOB salmeterol Allergy Unknown ANAPHYLAXIS Verified 07/28/17 07:23 morphine Allergy Unknown Verified 07/22/19 15:12 tiotropium Allergy Unknown Verified 07/22/19 15:12 [From [facility] with [employer]] digoxin AdvReac Unknown BACK AND Verified 07/28/17 07:23 STOMACH PAIN metformin AdvReac Unknown MUSCLE Verified 07/28/17 07:23 ACHES IN BVACK AND KIDNEYS Sodium Propionate Allergy Unknown SHORTNESS Uncoded 07/28/17 07:23 OF BREATH Home Medications Home Medications Medication Instructions Recorded Confirmed Type albuterol sulfate [Ventolin HFA] 2 puff INHALATION QID PRN 10/01/18 07/22/19 History Oxygen Home 07/22/19 07/22/19 History amiodarone 200 mg PO DAILY 07/22/19 07/22/19 History aspirin [Ecotrin Low Strength] 81 mg PO DAILY 07/22/19 07/22/19 History bumetanide 1 mg PO BID 07/22/19 07/22/19 History carvedilol 37.5 mg PO BID 07/22/19 07/22/19 History cholecalciferol (vitamin D3) 1,000 unit PO DAILY 07/22/19 07/22/19 History clotrimazole-betamethasone 1 applic TOPICAL BID 07/22/19 07/22/19 History coenzyme Q10 100 mg PO DAILY 07/22/19 07/22/19 History fluticasone propionate 1 spray INTRANASAL DAILY 07/22/19 07/22/19 History glimepiride 2 mg PO DAILY 07/22/19 07/22/19 History ipratropium-albuterol 3 ml INHALATION QID 07/22/19 07/22/19 History isosorbide mononitrate 30 mg PO QAM 07/22/19 07/22/19 History lorazepam 0.5 mg PO Q6H PRN 07/22/19 07/22/19 History mexiletine 150 mg PO BID 07/22/19 07/22/19 History nitroglycerin 0.4 mg SUBLINGUAL Q5M PRN 07/22/19 07/22/19 History oxycodone-acetaminophen 1 tab PO Q12H PRN 07/22/19 07/22/19 History sacubitril-valsartan [Entresto] 1 tab PO QAM 07/22/19 07/22/19 History tramadol 50 mg PO Q4H PRN 07/22/19 07/22/19 History Past Med/Surg History Medical History Asthma Chronic renal impairment Diabetes mellitus, type 2 H/O weight disorder Hepatitis C Hypertriglyceridemia ICD (implantable cardioverter-defibrillator) in place Peripheral neuropathy Surgical History H/O heart surgery Family History Unknown Cardiac disorder Hypertension Diabetes Social History Preferred Language: Fijian Communication Ability: Effective Visual Impairment: No Limitations Alarm Field Technician Required: No Beliefs That Will Affect Care: Sikh marital status: Current Living Situation: Spouse Current Living Situation Comment: with & son Other Information That Helps Us Care for You: No Feels Safe at Home: Yes Safety Concerns: Feels Safe At This Time Smoking Status: Former smoker Tobacco Type: cigarettes ; Do You Dip or Chew Tobacco: No ; Second Hand Exposure: No ; Tobacco Cessation Education Requested by Patient: No Hx Alcohol Use: No Hx Substance Use: No Physical Exam Constitutional: WD/WN, vitals as above well developed and + obese Eyes: PERRL, conjunctivae normal, anicteric sclerae ENMT: external ear and nose normal, oropharynx normal Neck: trachea midline, no thyromegaly Respiratory: normal respiratory effort, lungs clear to auscultation + respiratory distress, + hyperresonance to percussion and + nasal flaring Auscultation: + crackles, + wheezes, + bronchovesicular breath sounds and + egophony Cardiovascular: Heart Sounds: normal S1, normal S2 and + murmur Palpation: + palpable S3 Vessels: + JVD Extremities: + pedal edema Paced rhythm Gastrointestinal (Abdomen): Inspection/Auscultation: + abdomen distended (Obese) Musculoskeletal: no cyanosis or clubbing, extremities motor strength 5/5 Skin: no rashes, warm and dry Neurologic: patellar DTR's 2+ bilat, sensation intact Psychiatric: A+Ox3, euthymic affect Lymphatic: no cervical or axillary lymphadenopathy Code Status & VTE Plan Code Status Full code VTE Prophylaxis Plan VTE Prophylaxis will be ordered: Yes PG Care Time/CCT Total # of Minutes Spent Total Time Spent with Patient: Total time spent is greater than 50% in coordination of care (as documented) at patient's floor/unit and/or counseling patient:
[2019-07-22] MEDS ORDERED: ZOLPIDEM TARTRATE 5 MG TAB PO PRN (15:01)
[2019-07-22] MEDS ORDERED: LORazepam 0.5 MG TAB PO PRN (15:01)
[2019-07-22] MEDS ORDERED: ALBUTEROL HFA 8 GM INHALER INH PRN (15:01)
[2019-07-22] MEDS ORDERED: NITROGLYCERIN SL 0.4 MG/TAB TAB SL PRN (15:01)
[2019-07-22] MEDS ORDERED: POLYETHYLENE (MIRALAX) 17 GM PACK PO PRN (15:01)
[2019-07-22] MEDS ORDERED: ICU PROTOCOL FOR HYPERGLYCEMIA PRN (15:03)
[2019-07-22] MEDS ORDERED: HydrALAZINE HCL 20 MG/ML VIAL IV PRN (15:12)
[2019-07-22 15:30] LABS: Basophils # (auto) 0.01 K/uL (0-0.2); Basophils % (auto) 0.1 %; Hemoglobin 15.1 g/dL (14.0-18.0); Immature Granulocytes # (auto) 0.06 K/uL (0.00-0.02); Immature Granulocytes % (auto) 0.6 %; Lymphocytes # (auto) 0.86 K/uL (1.2-3.4); Lymphocytes % (auto) 8.3 %; Mean Corpuscular Volume 89.5 fL (80-100); Mean Platelet Volume 10.1 fL (7.4-10.4); Monocytes # (auto) 0.27 K/uL (0.11-0.59); Monocytes % (auto) 2.6 %; Neutrophils # (auto) 9.19 K/uL (1.4-6.5); Neutrophils % (auto) 88.4 %; Platelet Count 167 K/uL (130-400); RDW Coefficient of Variation 14.1 % (11.5-14.5); RDW Standard Deviation 46.3 fL (36.4-46.3); Red Blood Count 5.03 M/uL (4.7-6.1); White Blood Count 10.39 K/uL (4.8-10.8)
--- NOTE | 2019-07-22 15:40 | Critical Care Consultation ---
Date of Consultation July 22, 2019 Assessment & Plan (1) Admitted to intensive care unit: Reason Critically Ill: 63-year-old male transferred to ICU from [facility] the ED for hypercapnic respiratory failure with CHF exacerbation in the setting of ART and metabolic acidosis Neuro - CAM ICU: Negative Cardiac - CHFpatient recently discharged from hospital for CHF exacerbation, was noncompliant with FR at home, now presents with progressive shortness of breath over the past few days -pH corrected with BiPAP, will transition to HS if patient tolerates - will monitor routine ABGs -BNP elevated 3500, will trend -Diuresis with 40 mg Lasix every 8 hours for now -Daily weight -Strict I's and O's -Monitor on telemetry -Continue ASA, Coreg, HTNcontinue Coreg, isosorbide A. fibpatient on amiodarone and mexiletine for home meds -We will restart amnio but unable to restart mexiletine, not carried in this hospital, referring to pharmacy in attempt to obtain from local pharmacist Respiratory - Respiratory failureCHF exacerbation versus questionable COPD versus pneumonia -CHF exacerbation most likely considering elevated BNP along with course of history, see management above -Patient has history of questionable COPD and former history smoker, quit 10 years ago -We will continue nebs -Cannot rule out pneumonia on chest x-ray, however procalcitonin, WBC, and LA negative -Hold on antibiotic therapy at this time CXR suggestive of bilateral pulmonary edema/cardiopulmonary congestion -We will treat with diuresis and BiPAP support GI - Diabetic diet RENAL/LYTES - ART on CKD stage IIIreported creatinine at outside hospital was 2.1, baseline from previous admissions 1.5, patient also displayed mixed metabolic/respiratory acidosis, was placed on bicarb drip but was discontinued at [facility]. -Appears to be improving as creatinine is now 1.8 and pH within normal limits -We will avoid NSAIDs and nephrotoxins -We will hold fluid resuscitation as patient is likely CHF exacerbation -We will continue diuresis with Lasix with caution -Recheck with a.m. MARÍA ELENA AUZL - Foleystrict I's and O's ENDO - DM type IIA1c from December was 7.4, patient takes oral glipizide at home -We will transition to sliding scale in the setting of ART -ICU hyperglycemic protocol HEME - H&H stable, monitor ID - No indication for infection at this time, procalcitonin and lactate negative Sputum culture sent for reported productive cough LINES/IV ACCESS - Peripheral IVs DVT PROPHYLAXIS - SCDs, heparin Thank you for allowing us to participate in the care of this patient. Please refer to my attending physician's documentation for any further recommendations. (2) Acute respiratory failure: (3) Acute on chronic systolic CHF (congestive heart failure): (4) Acute respiratory failure: (5) Stage III chronic kidney disease: (6) Atrial fibrillation with RVR: Supervising Physician Co-Signing Physician Notes Patient seen and examined. Outside medical records extensively reviewed. Discussed with nurse practitioner at the bedside. The patient is a 63-year-old male with a history of congestive heart failure. He presented to an outside medical facility with shortness of breath. He received steroids, bronchodilators, diuretics and blood gas which showed mixed metabolic and respiratory acidosis. He received a bicarb infusion. He was placed on noninvasive positive pressure ventilation. Chest x-ray showed cardiomegaly and pulmonary venous congestion. He was felt to require higher level of care and was transported to this facility. There was initial concern that the patient may need to be intubated so he was directly brought to the intensive care unit. He was assessed on arrival. He is awake alert and states he is breathing much better with the BiPAP and diuretics. He apparently declined intubation and Levy catheter placement at the outside facility. Impression: 63-year-old male with what appears to be cardiogenic pulmonary edema with renal insufficiency and metabolic and respiratory acidosis. Recommendations: 1. Continue BiPAP as tolerated. We will plan to wean to nasal cannula and continue noninvasive positive pressure ventilation at night as the patient does have a history of sleep disordered breathing. 2. Congestive heart failure with exacerbation: Continue diuretics. Aggressive blood pressure control to try and keep blood pressure less than 125/75. Cardiology consultation may be required. He did have a prior echocardiogram a year ago in our system showing moderate mitral regurgitation. We will repeat echocardiogram to ascertain whether or not there is been any deterioration in valvular function. Continue diuretics as tolerated. 3. Acute renal insufficiency: Appears to be improving based on assessment of current labs. Poor cardiac output certainly may be contributing with resultant mild ATN. Should kidney function failed to improve, additional evaluation may be warranted. 4. Acute on chronic metabolic and respiratory acidosis: Suspect obesity hypoventilation syndrome. The patient relates a history of COPD but is not overtly bronchospastic. She appears improved with noninvasive positive pressure ventilation. Will follow for now. 5. History of atrial fibrillation: On mexiletine. This medication is not available through our pharmacy and will need to have his family bring in his home medication. 6. Reported history of obstructive lung disease: The patient does not appear bronchospastic currently. No indication for steroids or antibiotics currently. Continue bronchodilators as needed. We will observe the patient overnight. If he does well, he can likely transfer to the care of the hospitalist in the morning. History of Present Illness Attending Physician: Neto Carlson MD History of Present Illness Mr. Vee is a 63-year-old male with past medical history significant for CHF with EF 30 to 35%, A. fib, pacer/AICD, DM type II, CKD stage III, ANDREW, who presents to the ICU as a transfer from the [facility] emergency department hypercapnic respiratory failure and acute kidney injury with mixed respiratory/metabolic acidosis. Of note, patient was recently admitted to [facility] for CHF exacerbation and follows cardiology here. He presented to [facility] ED with ongoing shortness of breath that had worsened over the past few days. He claims that he has been noncompliant with his fluid restriction, but daily weights have been unchanged. He refused intubation at [facility] for transport, and was placed on BiPAP. He was also placed on a bicarb drip which was discontinued prior to transport. He seems to be tolerating BiPAP well PH has since corrected. He currently denies headache, syncope, dizziness, chest pain, palpitations, abdominal pain, nausea or vomiting, diarrhea. We will begin aggressive diuresis with BiPAP support. Patient remain to ICU for now for current management. Allergies Allergy/AdvReac Type Severity Reaction Status Date / Time budesonide Allergy Unknown TACHYCARDIA, Verified 07/28/17 07:23 SOB carbamazepine Allergy Unknown TACHYCARDIA, Verified 07/28/17 07:23 PANIC ATTACK cyclobenzaprine Allergy Unknown UNK Verified 07/28/17 07:23 doxycycline Allergy Unknown ABD PAIN Verified 07/28/17 07:23 fluticasone Allergy Unknown UNK Verified 07/28/17 07:23 formoterol Allergy Unknown TACHYCARDIA, Verified 07/28/17 07:23 SOB salmeterol Allergy Unknown ANAPHYLAXIS Verified 07/28/17 07:23 morphine Allergy Unknown Verified 07/22/19 15:12 tiotropium Allergy Unknown Verified 07/22/19 15:12 [From Spiriva with HandiHaler] digoxin AdvReac Unknown BACK AND Verified 07/28/17 07:23 STOMACH PAIN metformin AdvReac Unknown MUSCLE Verified 07/28/17 07:23 ACHES IN BVACK AND KIDNEYS Sodium Propionate Allergy Unknown SHORTNESS Uncoded 07/28/17 07:23 OF BREATH Home Medications Home Medications Medication Instructions Recorded Confirmed Type albuterol sulfate [Ventolin HFA] 2 puff INHALATION QID PRN 10/01/18 07/22/19 History Oxygen Home 07/22/19 07/22/19 History amiodarone 200 mg PO DAILY 07/22/19 07/22/19 History aspirin [Ecotrin Low Strength] 81 mg PO DAILY 07/22/19 07/22/19 History bumetanide 1 mg PO BID 07/22/19 07/22/19 History carvedilol 37.5 mg PO BID 07/22/19 07/22/19 History cholecalciferol (vitamin D3) 1,000 unit PO DAILY 07/22/19 07/22/19 History clotrimazole-betamethasone 1 applic TOPICAL BID 07/22/19 07/22/19 History coenzyme Q10 100 mg PO DAILY 07/22/19 07/22/19 History fluticasone propionate 1 spray INTRANASAL DAILY 07/22/19 07/22/19 History glimepiride 2 mg PO DAILY 07/22/19 07/22/19 History ipratropium-albuterol 3 ml INHALATION QID 07/22/19 07/22/19 History isosorbide mononitrate 30 mg PO QAM 07/22/19 07/22/19 History lorazepam 0.5 mg PO Q6H PRN 07/22/19 07/22/19 History mexiletine 150 mg PO BID 07/22/19 07/22/19 History nitroglycerin 0.4 mg SUBLINGUAL Q5M PRN 07/22/19 07/22/19 History oxycodone-acetaminophen 1 tab PO Q12H PRN 07/22/19 07/22/19 History sacubitril-valsartan [Entresto] 1 tab PO QAM 07/22/19 07/22/19 History tramadol 50 mg PO Q4H PRN 07/22/19 07/22/19 History Patient History Medical History Asthma Chronic renal impairment Diabetes mellitus, type 2 H/O weight disorder Hepatitis C Hypertriglyceridemia ICD (implantable cardioverter-defibrillator) in place Peripheral neuropathy Surgical History H/O heart surgery Family History Unknown Cardiac disorder Hypertension Diabetes Social History Preferred Language: Togolese Communication Ability: Effective Visual Impairment: No Limitations [employer] Required: No Beliefs That Will Affect Care: Buddhist marital status: Current Living Situation: Spouse Current Living Situation Comment: with & son Other Information That Helps Us Care for You: No Feels Safe at Home: Yes Safety Concerns: Feels Safe At This Time Smoking Status: Former smoker Tobacco Type: cigarettes ; Do You Dip or Chew Tobacco: No ; Second Hand Exposure: No ; Tobacco Cessation Education Requested by Patient: No Hx Alcohol Use: No Hx Substance Use: No Review of Systems Review of Systems: All systems reviewed & are unremarkable except as noted in HPI & below Physical Exam Constitutional: + obese and comfortable Eyes: PERRL, conjunctivae normal, anicteric sclerae ENMT: external ear and nose normal, oropharynx normal Neck: trachea midline, no thyromegaly Respiratory: Symmetrical chest wall movement, coarse crackles auscultated bilaterally in all lobes, normal respiratory rate and effort Cardiovascular: Heart Sounds: normal S1 and normal S2 Vessels: no JVD Extremities: no edema Paced rhythm Gastrointestinal (Abdomen): normal bowel sounds, soft, nontender, no hepatosplenomegaly Abdomen obese Skin: no rashes, warm and dry Neurologic: PERRL, EOMI, accommodation nl, no face palsy, no dysarthria Psychiatric: A+Ox3, euthymic affect Results & Data Laboratory Results Laboratory Results - last 24 hr 07/22/19 07/22/19 07/22/19 15:03 15:12 15:12 WBC 10.39 RBC 5.03 Hgb 15.1 Hct 45.0 MCV 89.5 MCH 30.0 MCHC 33.6 RDW Std Deviation 46.3 RDW Coeff of Tristan 14.1 Plt Count 167 MPV 10.1 Immature Gran % (Auto) 0.6 Neut % (Auto) 88.4 Lymph % (Auto) 8.3 Cowley % (Auto) 2.6 Eos % (Auto) 0.0 Baso % (Auto) 0.1 Immature Gran # (Auto) 0.06 H Neut # (Auto) 9.19 H Lymph # (Auto) 0.86 L Cowley # (Auto) 0.27 Eos # (Auto) 0.00 Baso # (Auto) 0.01 PT 11.4 INR 1.1 APTT 24.5 PTT Ratio 0.9 Sodium Potassium Chloride Carbon Dioxide Anion Gap BUN Creatinine Est Cr Clr Drug Dosing Est GFR ( Amer) Est GFR (Non-Af Amer) BUN/Creatinine Ratio Glucose POC Glucose Lactate Calcium Phosphorus Total Bilirubin AST ALT Alkaline Phosphatase Troponin I NT-Pro-B Natriuret Pep Total Protein Albumin Globulin Albumin/Globulin Ratio Procalcitonin Nasal Screen MRSA (PCR) Pending 07/22/19 07/22/19 07/22/19 15:12 15:12 15:16 WBC RBC Hgb Hct MCV MCH MCHC RDW Std Deviation RDW Coeff of Tristan Plt Count MPV Immature Gran % (Auto) Neut % (Auto) Lymph % (Auto) Cowley % (Auto) Eos % (Auto) Baso % (Auto) Immature Gran # (Auto) Neut # (Auto) Lymph # (Auto) Cowley # (Auto) Eos # (Auto) Baso # (Auto) PT INR APTT PTT Ratio Sodium 139 Potassium 4.8 Chloride 108 H Carbon Dioxide 24 Anion Gap 7.0 BUN 27 H Creatinine 1.83 H Est Cr Clr Drug Dosing Not Reportable Est GFR ( Amer) 43.9 Est GFR (Non-Af Amer) 37.9 BUN/Creatinine Ratio 14.5 Glucose 150 H POC Glucose Lactate 1.5 Calcium 9.6 Phosphorus 3.0 Total Bilirubin 0.6 AST 24 ALT 40 Alkaline Phosphatase 50 Troponin I < 0.015 NT-Pro-B Natriuret Pep 3914 H Total Protein 7.0 Albumin 3.4 Globulin 3.6 Albumin/Globulin Ratio 0.9 Procalcitonin 0.09 Nasal Screen MRSA (PCR) 07/22/19 15:27 WBC RBC Hgb Hct MCV MCH MCHC RDW Std Deviation RDW Coeff of Tristan Plt Count MPV Immature Gran % (Auto) Neut % (Auto) Lymph % (Auto) Cowley % (Auto) Eos % (Auto) Baso % (Auto) Immature Gran # (Auto) Neut # (Auto) Lymph # (Auto) Cowley # (Auto) Eos # (Auto) Baso # (Auto) PT INR APTT PTT Ratio Sodium Potassium Chloride Carbon Dioxide Anion Gap BUN Creatinine Est Cr Clr Drug Dosing Est GFR ( Amer) Est GFR (Non-Af Amer) BUN/Creatinine Ratio Glucose POC Glucose 145 H Lactate Calcium Phosphorus Total Bilirubin AST ALT Alkaline Phosphatase Troponin I NT-Pro-B Natriuret Pep Total Protein Albumin Globulin Albumin/Globulin Ratio Procalcitonin Nasal Screen MRSA (PCR) PG Care Time/CCT Total # of Minutes Spent Total Time Spent with Patient: Total time spent is greater than 50% in coordination of care (as documented) at patient's floor/unit and/or counseling patient:
[2019-07-22 15:41] LABS: INR 1.1 (0.9-1.1); Partial Thromboplastin Ratio 0.9; Partial Thromboplastin Time 24.5 Seconds (21.0-31.0); Prothrombin Time 11.4 Seconds (9.0-12.0)
--- NOTE | 2019-07-22 15:41 | XRay Report ---
XR chest 1V portable HISTORY: Respiratory distress. COMPARISON: Chest 10/29/2018. FINDINGS: No pneumothorax. No pleural effusions. The heart is top normal in size. Old, healed left-si ded rib fractures. Left-sided pacemaker/defibrillator. Right greater than left perihilar interstitial thickening with a right basilar hazy airspace opacity. IMPRESSION: Right greater than left perihilar interstitial thickening with a right basilar hazy airspace opacity. This favors asymmetric pulmonary edema. A superimposed right lower lobe pneumonia cannot be excluded . Electronically signed by: Darion Solnao M.D. 07/22/2019 3:39 PM
[2019-07-22 15:51] LABS: Alanine Aminotransferase 40 U/L (12-78); Albumin Level 3.4 gm/dl (3.4-5.0); Aspartate Aminotransferase 24 U/L (15-37); BUN Creatinine Ratio 14.5 (10-20); Blood Urea Nitrogen 27 mg/dl (7-18); Calcium 9.6 mg/dl (8.5-10.1); Carbon Dioxide 24 mmol/L (21-32); Chloride 108 mmol/L (98-107); Est GFR (African American) 43.9; Est GFR (Non-African American) 37.9; Glucose 150 mg/dl (70-99); Potassium 4.8 mmol/L (3.5-5.1); Sodium 139 mmol/L (136-145)
[2019-07-22 15:56] LABS: Albumin Globulin Ratio 0.9 (0.9-2); Alkaline Phosphatase 50 U/L (45-117); Bilirubin,Total 0.6 mg/dl (0.2-1); Globulin 3.6 gm/dl (2.5-4.0); NT Pro B Type Natriuretic Pept 3914 pg/ml (0-900); Troponin I < 0.015 ng/ml (0-0.045)
[2019-07-22 16:19] LABS: Mean Corpuscular Hgb Conc 33.6 g/dL (32-36)
[2019-07-22] MEDS: FUROSEMIDE 40 MG in SYRINGE 0 ML IV SCH (16:25)
[2019-07-22] MEDS ORDERED: GLUCOSE 10 TABS/TUBE PO PRN (17:16)
[2019-07-22] MEDS ORDERED: GLUCAGON FOR INJ 1 MG VIAL SQ PRN (17:16)
[2019-07-22] MEDS ORDERED: DEXTROSE 50% 50 ML SYRINGE IV PRN (17:16)
[2019-07-22] MEDS ORDERED: CARBOHYDRATES FOR HYPOGLYCEMIA PO PRN (17:16)
[2019-07-22] MEDS ORDERED: GLUCOSE 40% GEL 15 GM TUBE PO PRN (17:16)
[2019-07-22] MEDS ORDERED: PHARMACY GLYCEMIC MGMT CONSULT PRN (18:00)
[2019-07-22] MEDS: INSULIN ASPART 100 UNITS/ML 3 ML PEN SC SCH ×2 (18:35→21:19)
[2019-07-22] MEDS ORDERED: MEXILETINE HCL PO SCH (21:00)
[2019-07-22] MEDS ORDERED: INSULIN GLARGINE SOLOSTAR 100 UNITS/ML 3 ML PEN SC SCH (21:00)
[2019-07-22] MEDS: HEPARIN SOD 5,000 UNIT/0.5 ML VIAL SQ SCH (21:18)
[2019-07-22] MEDS: MEXILETINE HCL PO SCH (21:23)
[2019-07-22] MEDS ORDERED: Nursing to Pharmacy Communication ONE (21:50)
[2019-07-23] MEDS ORDERED: ICU SEVERE HYPERGLYCEMIA PROTOCOL ONE (00:06)
[2019-07-23] MEDS: FUROSEMIDE 40 MG in SYRINGE 0 ML IV SCH ×4 (00:12→21:45)
[2019-07-23] MEDS: TRAMADOL HCL 50 MG TABLET PO PRN ×4 (00:12→21:44)
[2019-07-23] MEDS ORDERED: PHARMACY GLYCEMIC MGMT CONSULT PRN (00:14)
[2019-07-23] MEDS ORDERED: NovoLIN-R BOLUS FROM BAG IV ONE (00:15)
[2019-07-23] MEDS: INSULIN REGULAR 250 UNITS in SODIUM CHLORIDE 0.9% 247.5 ML IV SCH (00:25)
[2019-07-23 04:53] LABS: Basophils # (auto) 0.01 K/uL (0-0.2); Basophils % (auto) 0.1 %; Hemoglobin 14.3 g/dL (14.0-18.0); Immature Granulocytes # (auto) 0.04 K/uL (0.00-0.02); Immature Granulocytes % (auto) 0.2 %; Lymphocytes # (auto) 1.21 K/uL (1.2-3.4); Lymphocytes % (auto) 7.6 %; Mean Corpuscular Hemoglobin 29.8 pg (25-34); Mean Corpuscular Volume 87.5 fL (80-100); Mean Platelet Volume 10.7 fL (7.4-10.4); Monocytes # (auto) 0.62 K/uL (0.11-0.59); Monocytes % (auto) 3.9 %; Neutrophils # (auto) 14.13 K/uL (1.4-6.5); Neutrophils % (auto) 88.2 %; Platelet Count 184 K/uL (130-400); RDW Coefficient of Variation 14.2 % (11.5-14.5); RDW Standard Deviation 46.2 fL (36.4-46.3); White Blood Count 16.01 K/uL (4.8-10.8)
[2019-07-23 05:00] LABS: Base Excess ABG -0.3 mEq/L (-9-1.8); HCO3 ABG 23 mmol/L (19-24); Oxygen Saturation ABG 96.3 % (90-95); PCO2 ABG 33 mmHg (35-46); PO2 ABG 79 mm/Hg (80-95); pH ABG 7.46 (7.35-7.45)
[2019-07-23 05:01] LABS: Allen Test POS (Pos)
[2019-07-23 05:15] LABS: BUN Creatinine Ratio 18.2 (10-20); Calcium 8.9 mg/dl (8.5-10.1); Est GFR (African American) 41.2; Est GFR (Non-African American) 35.5; Magnesium 2.1 mg/dl (1.8-2.4); Potassium 4.2 mmol/L (3.5-5.1)
[2019-07-23 05:26] LABS: Phosphorus 3.4 mg/dl (2.5-4.9); Thyroid Stimulating Hormone 2.65 uIu/ml (0.300-4.500)
[2019-07-23 06:11] LABS: Estimated Average Glucose 186 mg/dl; Hemoglobin A1C 8.1 % (4.5-5.6)
[2019-07-23] MEDS ORDERED: PERFLUTREN LIPID MICROSPHERE (DEFINITY) IV ONE (07:01)
[2019-07-23] MEDS: FLUTICASONE PROPIONATE NA SPR 16 GM BTL NAE SCH (07:45)
[2019-07-23] MEDS: ASPIRIN 81 MG CHEW PO SCH (07:45)
[2019-07-23] MEDS: HEPARIN SOD 5,000 UNIT/0.5 ML VIAL SQ SCH ×2 (07:46→20:50)
[2019-07-23] MEDS: MEXILETINE HCL PO SCH ×2 (07:46→21:45)
[2019-07-23] MEDS: CHOLECALCIFEROL 1,000 UNITS TAB PO SCH (07:46)
[2019-07-23] MEDS: INSULIN ASPART 100 UNITS/ML 3 ML PEN SC SCH ×4 (07:48→20:49)
--- NOTE | 2019-07-23 07:53 | Critical Care Progress Note ---
Date of Service July 23, 2019 Assessment & Plan (1) Admitted to intensive care unit: Reason Critically Ill: 63-year-old male transferred to ICU from [place] the ED for hypercapnic respiratory failure with CHF exacerbation in the setting of ART and metabolic acidosis Neuro - CAM ICU: Negative Cardiac - CHFpatient recently discharged from hospital for CHF exacerbation, was noncompliant with FR at home, now presents with progressive shortness of breath over the past few days -pH corrected with BiPAP, transitioned to HS and tolerating NC during day -BNP elevated 3500 on admission, -1700 volume status this morning, continue diuresis -Daily weight -Strict I's and O's -Monitor on telemetry -Continue ASA, Coreg, HTNcontinue Coreg, isosorbide - hydralazine prn A. fibpatient on amiodarone and mexiletine for home meds -mexiletine acquired by pharmacy Respiratory - Respiratory failureCHF exacerbation versus questionable COPD versus pneumonia -CHF exacerbation most likely considering elevated BNP along with course of history, see management above -Patient has history of questionable COPD and former history smoker, quit 10 years ago -We will continue nebs -Cannot rule out pneumonia on chest x-ray, however procalcitonin and LA negative -Hold on antibiotic therapy at this time CXR suggestive of bilateral pulmonary edema/cardiopulmonary congestion - improved on this mornings study -We will treat with diuresis and BiPAP support GI - Diabetic diet RENAL/LYTES - ART on CKD stage IIIreported creatinine at outside hospital was 2.1, baseline from previous admissions 1.5, patient also displayed mixed metabolic/respiratory acidosis, was placed on bicarb drip but was discontinued at [facility]. - Creatinine 1.8 on admission and 1.9 this a.m., metabolic acidosis resolved -We will avoid NSAIDs and nephrotoxins -We will hold fluid resuscitation as patient is likely CHF exacerbation -We will continue diuresis with Lasix with caution -monitor routine BMPs - Foleystrict I's and O's ENDO - DM type II (uncontrolled)A1c 8.1, patient takes oral glipizide at home - was placed on insulin drip overnight, will increase basal to wean - will consult personal development educator -ICU hyperglycemic protocol HEME - H&H stable, monitor ID - No indication for infection at this time, procalcitonin and lactate negative Sputum culture sent for reported productive cough LINES/IV ACCESS - Peripheral IVs DVT PROPHYLAXIS - SCDs, heparin Thank you for allowing us to participate in the care of this patient. Please refer to my attending physician's documentation for any further recommendations. (2) Acute respiratory failure: (3) Acute on chronic systolic CHF (congestive heart failure): (4) Stage III chronic kidney disease: (5) Atrial fibrillation with RVR: Supervising Physician Co-Signing Physician Notes Patient seen and examined. Discussed with nurse practitioner on rounds. Patient interviewed again at the bedside. He is doing much better today. Has been off noninvasive positive pressure ventilation. His chest x-ray shows marked clearing of the previously noted right lower lobe airspace opacity consistent with fluid. His kidney function is improving. He feels better. He would like to address some of his medications and see what may potentially be discontinued in the future. I suspect the patient's respiratory distress was likely related to fluid shifts and fluid overload. His chest x-ray is markedly improved. Continued management per medicine service and cardiology. Would continue CPAP at night for sleep disordered breathing. The patient can bring his home machine and use it nightly. Outpatient pulmonary function testing may be appropriate. Would continue inhalers for now but there is no indication for systemic steroids were anti-. Will sign off at this point time as the patient is transferred out of the ICU.. Feel free to contact us with additional questions or concerns. Subjective This morning the patient appears more comfortable and improved and claims his breathing is significantly better than it was the previous day. He tolerated Bipap overnight and was placed on NC this morning and appears to be tolerating well. CXR has improved this a.m. and he is negative 1700mL since admission. He is hemodynamically stable and able to be downgraded from ICU status at this time. He currently denies CABRERA, syncope, dizziness, SOB, Chest pain, palpitaions, N or V, abdominal pain, or diarrhea. He still reports a productive cough but denies hemoptysis. Review of Systems Review of Systems: All systems reviewed & are unremarkable except as noted in HPI & below Physical Exam Constitutional: + obese and comfortable Eyes: PERRL, conjunctivae normal, anicteric sclerae ENMT: external ear and nose normal, oropharynx normal Neck: trachea midline, no thyromegaly Respiratory: normal respiratory effort nonlabored breathing, lungs clear to auscultation with slight expiratory wheeze over the right middle and lower lobes Cardiovascular: Heart Sounds: normal S1 and normal S2 Vessels: no JVD Extremities: no edema Paced rythm Gastrointestinal (Abdomen): normal bowel sounds, soft, nontender, no hepatosplenomegaly Skin: no rashes, warm and dry Neurologic: PERRL, EOMI, accommodation nl, no face palsy, no dysarthria Psychiatric: A+Ox3, euthymic affect Results & Data Vital Signs (Past 12 Hours) Vital Signs Temp Pulse Resp BP Pulse Ox 07/23/19 06:00 70 16 109/65 92 07/23/19 05:00 65 13 101/69 91 07/23/19 04:44 36.4 C L 07/23/19 04:00 67 15 113/60 95 07/23/19 03:50 68 18 94 07/23/19 03:00 67 16 93/66 L 95 07/23/19 02:00 64 17 103/57 L 94 07/23/19 01:00 67 19 116/60 95 07/23/19 00:15 66 20 95 07/23/19 00:00 36.7 C 64 19 108/62 91 07/22/19 23:00 67 18 100/66 90 07/22/19 22:27 70 19 104/59 L 92 07/22/19 22:01 73 28 H 82/51 L 90 07/22/19 21:00 78 25 H 105/68 90 07/22/19 20:01 75 25 H 93/55 L 90 07/22/19 20:00 36.7 C PG Care Time/CCT Total # of Minutes Spent Total Time Spent with Patient: Total time spent is greater than 50% in coordination of care (as documented) at patient's floor/unit and/or counseling patient:
[2019-07-23] MEDS ORDERED: INSULIN GLARGINE SOLOSTAR 100 UNITS/ML 3 ML PEN SC STA (08:25)
--- NOTE | 2019-07-23 08:31 | XRay Report ---
XR chest 1V portable CLINICAL HISTORY: Respiratory failure COMPARISON STUDY: 07/22/2019 FINDINGS: The heart is mildly enlarged. There is improving pulmonary edema. There is a left-sided pac er/defibrillator. There is no pneumothorax. There are no significant pleural effusions.[ IMPRESSION: Resolving asymmetric pulmonary edema pattern. Electronically signed by: Juan Ramon López M.D. 07/23/2019 8:29 AM
[2019-07-23] MEDS ORDERED: INSULIN GLARGINE SOLOSTAR 100 UNITS/ML 3 ML PEN SC SCH ×2 (09:00)
[2019-07-23] MEDS ORDERED: NON-FORMULARY MEDICATION (Coenzyme Q10 100 MG) PO SCH (09:00)
--- NOTE | 2019-07-23 14:43 | Pharmacy Report ---
Pharmacy Glycemic Short Note 2 - Date of Service July 23, 2019 - Glycemic Short BSG Results (Last 24 hours): 07/22/19 07/22/19 07/22/19 15:12 15:27 20:06 Glucose 150 H POC Glucose 145 H 231 H 07/22/19 07/23/19 07/23/19 23:58 01:28 02:27 Glucose POC Glucose 258 H 203 H 167 H 07/23/19 07/23/19 07/23/19 03:26 04:32 04:38 Glucose 151 H POC Glucose 145 H 142 H 07/23/19 07/23/19 07/23/19 05:28 06:40 07:19 Glucose POC Glucose 130 H 153 H 150 H 07/23/19 07/23/19 07/23/19 09:15 10:26 11:17 Glucose POC Glucose 266 H 234 H 195 H 07/23/19 07/23/19 12:19 13:17 Glucose POC Glucose 149 H 176 H OUTPATIENT ANTIDIABETIC REGIMEN: * Glimepiride 2mg QD ASSESSMENT: * A1c 07/23/19: 8.1% * Patient received a weight based stress of two lantus dose last evening but became hyperglycemic overnight, necessitating an IV insulin infusion. Drip remained 3.3 units/hr overnight. Provider initially wanted to transition off the insulin infusion and a total of 40 units of lantus was administered this morning. However, as patient became hyperglycemic again after breakfast it was decided to continue the infusion through today until the insulin infusion rate trends down (<2 units/hr). I will continue with concomitant lantus dosing to help assist eventual drip transition. In addition a fixed carb ratio will be used (rather than the IV insulin infusion calculator) to ensure appropriate coverage. Given patient A1c and only on one oral agent as an outpatient, it is unusual that the patient is requiring this amount of insulin. I anticipate needing to back off on total daily insulin doses tomorrow. PLAN FOR INPATIENT GLYCEMIC CONTROL: * Hold outpatient oral diabetes medications * Continue IV insulin infusion (rate today ~3.1-4 units/hr) * Basal insulin * Lantus 40 units SQ this morning * per scale this evenin,20, or 30 units (SEE MAR for details) * Bolus insulin * NovoLog per scale ACHS or Q6hrs while NPO * Goal Range: Low 110 mg/dL - High 180 mg/dL * Nutritional / Prandial insulin per carb ratio of 1 unit per 5 grams CHO consumed
[2019-07-23] MEDS ORDERED: DC IV INSULIN INFUSION 1 EA DEVI ONE (15:00)
[2019-07-23] MEDS: ALBUT/IPRATROP 3MG/0.5MG NEB 3 ML VIAL NEB PRN (16:29)
[2019-07-23] MEDS ORDERED: INSULIN ASPART 100 UNITS/ML 3 ML PEN SC SCH ×2 (16:30)
--- NOTE | 2019-07-23 17:26 | Hospitalist Progress Note ---
Date of Service July 23, 2019 Assessment & Plan (1) Acute on chronic systolic CHF (congestive heart failure): unclear etiology, does not follow fluid restriction will continue on Lasix 40mg IV q8, responding well in first 24 hours monitor Cr with aggressive diuresis check echo consult Dr. Hagan for recommendations discussed with Monique Hi, CHF clinic will follow him after discharge holding Entresto continue coreg (2) Acute respiratory failure: due to acute heart failure no evidence of pneumonia does have long standing COPD, monitor for any wheezing (3) Hypertension: BP always runs low normal (4) Coronary artery disease: no chest pain troponin was not checked here continue aspirin, coreg, imdur he was evaluated for CABG in the past but not a candidate (5) Stage III chronic kidney disease: Cr 1.8 on admission, up to 1.9 with aggressive Lasix this is acceptable will continue to watch closely with diuresis (6) Atrial fibrillation with RVR: Continue Coreg, amiodarone. Patient also takes mexiletine at home, obtained a three day supply from [place] (7) Obstructive sleep apnea of adult: CPAP at night when off BIPAP and stable Subjective patient breathing a lot better in the morning on 07/23, no distress diuresed a lot and CXR showed clearing of the pulmonary edema eating okay, no GI issues denied any chest pain his main concern is that he feels he was over medicated at home he was on Entresto and he constantly had low blood pressure, felt weak and dizzy he was not following a fluid restriction he was weighing himself, he said that his weight had been stable he had been in and out of the hospital a few times for heart failure, most recently at [place] for a few days 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 Hagan, only saw him once he had not been hooked up with the heart failure clinic reviewed CXR, resolved pulmonary edema reviewed labs, Cr up to 1.9 and K stable, WBC up slightly to 16k Review of Systems Review of Systems: All systems reviewed & are unremarkable except as noted in HPI & below Constitutional: + fatigue and + weakness; no fever Respiratory: + cough, + dyspnea and + dyspnea on exertion Cardiovascular: + edema; no chest pain Gastrointestinal: no abdominal pain, no nausea, no vomiting, no constipation and no diarrhea/loose stools Physical Exam Constitutional: WD/WN, vitals as above Eyes: PERRL, conjunctivae normal, anicteric sclerae ENMT: external ear and nose normal, oropharynx normal Neck: trachea midline, no thyromegaly Respiratory: normal respiratory effort; no respiratory distress Auscultation: + diminished lung sounds and + rales (bases); no rhonchi and no wheezes Cardiovascular: Rate/Rhythm: regular rate and regular rhythm Heart Sounds: normal S1 and normal S2; no murmur Vessels: + JVD Extremities: + edema Gastrointestinal (Abdomen): normal bowel sounds, soft, nontender, no hepatosplenomegaly Musculoskeletal: no cyanosis or clubbing, extremities motor strength 5/5 Skin: no rashes, warm and dry Neurologic: patellar DTR's 2+ bilat, sensation intact and PERRL, EOMI, accommodation nl, no face palsy, no dysarthria Psychiatric: A+Ox3, euthymic affect Lymphatic: no cervical or axillary lymphadenopathy Results & Data Vital Signs (Past 12 Hours) Vital Signs Temp Pulse Pulse Resp BP BP Pulse Ox 07/23/19 16:33 74 18 93 07/23/19 14:41 36.4 C L 67 18 120/68 97 07/23/19 08:00 36.5 C 72 20 111/64 07/23/19 06:00 70 16 109/65 92 Laboratory Results Laboratory Results - last 24 hr 07/22/19 07/22/19 07/23/19 20:06 23:58 01:28 WBC RBC Hgb Hct MCV MCH MCHC RDW Std Deviation RDW Coeff of Tristan Plt Count MPV Immature Gran % (Auto) Neut % (Auto) Lymph % (Auto) Dunn % (Auto) Eos % (Auto) Baso % (Auto) Immature Gran # (Auto) Neut # (Auto) Lymph # (Auto) Dunn # (Auto) Eos # (Auto) Baso # (Auto) ABG pH ABG pCO2 ABG pO2 ABG HCO3 ABG O2 Saturation ABG Base Excess Maykel Test Barometric Pressure Oxygen Given Sodium Potassium Chloride Carbon Dioxide Anion Gap BUN Creatinine Est Cr Clr Drug Dosing Est GFR ( Amer) Est GFR (Non-Af Amer) BUN/Creatinine Ratio Glucose POC Glucose 231 H 258 H 203 H Estimat Average Glucose Hemoglobin A1c Calcium Phosphorus Magnesium Triglycerides Cholesterol LDL Cholesterol, Calc VLDL Cholesterol, Calc HDL Cholesterol Cholesterol/HDL Ratio Procalcitonin [facility] 07/23/19 07/23/19 07/23/19 02:27 03:26 04:32 WBC RBC Hgb Hct MCV MCH MCHC RDW Std Deviation RDW Coeff of Tristan Plt Count MPV Immature Gran % (Auto) Neut % (Auto) Lymph % (Auto) Dunn % (Auto) Eos % (Auto) Baso % (Auto) Immature Gran # (Auto) Neut # (Auto) Lymph # (Auto) Dunn # (Auto) Eos # (Auto) Baso # (Auto) ABG pH ABG pCO2 ABG pO2 ABG HCO3 ABG O2 Saturation ABG Base Excess Maykel Test Barometric Pressure Oxygen Given Sodium Potassium Chloride Carbon Dioxide Anion Gap BUN Creatinine Est Cr Clr Drug Dosing Est GFR ( Amer) Est GFR (Non-Af Amer) BUN/Creatinine Ratio Glucose POC Glucose 167 H 145 H Estimat Average Glucose 186 Hemoglobin A1c 8.1 H Calcium Phosphorus Magnesium Triglycerides Cholesterol LDL Cholesterol, Calc VLDL Cholesterol, Calc HDL Cholesterol Cholesterol/HDL Ratio Procalcitonin [facility] 07/23/19 07/23/19 07/23/19 04:32 04:32 04:32 WBC 16.01 H RBC 4.80 Hgb 14.3 Hct 42.0 MCV 87.5 MCH 29.8 MCHC 34.0 RDW Std Deviation 46.2 RDW Coeff of Tristan 14.2 Plt Count 184 MPV 10.7 H Immature Gran % (Auto) 0.2 Neut % (Auto) 88.2 Lymph % (Auto) 7.6 Dunn % (Auto) 3.9 Eos % (Auto) 0.0 Baso % (Auto) 0.1 Immature Gran # (Auto) 0.04 H Neut # (Auto) 14.13 H Lymph # (Auto) 1.21 Dunn # (Auto) 0.62 H Eos # (Auto) 0.00 Baso # (Auto) 0.01 ABG pH 7.46 H ABG pCO2 33 L ABG pO2 79 L ABG HCO3 23 ABG O2 Saturation 96.3 H ABG Base Excess -0.3 Maykel Test POS Barometric Pressure 729.8 Oxygen Given 6 L Sodium 138 Potassium 4.2 Chloride 106 Carbon Dioxide 23 Anion Gap 9.0 BUN 35 H Creatinine 1.93 H Est Cr Clr Drug Dosing 46.0 Est GFR ( Amer) 41.2 Est GFR (Non-Af Amer) 35.5 BUN/Creatinine Ratio 18.2 Glucose 151 H POC Glucose Estimat Average Glucose Hemoglobin A1c Calcium 8.9 Phosphorus 3.4 Magnesium 2.1 Triglycerides 326 H Cholesterol 236 H LDL Cholesterol, Calc 139 VLDL Cholesterol, Calc 65 HDL Cholesterol 32 Cholesterol/HDL Ratio 7 Procalcitonin TSH 2.650 07/23/19 07/23/19 07/23/19 04:32 04:38 05:28 WBC RBC Hgb Hct MCV MCH MCHC RDW Std Deviation RDW Coeff of Tristan Plt Count MPV Immature Gran % (Auto) Neut % (Auto) Lymph % (Auto) Dunn % (Auto) Eos % (Auto) Baso % (Auto) Immature Gran # (Auto) Neut # (Auto) Lymph # (Auto) Dunn # (Auto) Eos # (Auto) Baso # (Auto) ABG pH ABG pCO2 ABG pO2 ABG HCO3 ABG O2 Saturation ABG Base Excess Maykel Test Barometric Pressure Oxygen Given Sodium Potassium Chloride Carbon Dioxide Anion Gap BUN Creatinine Est Cr Clr Drug Dosing Est GFR ( Amer) Est GFR (Non-Af Amer) BUN/Creatinine Ratio Glucose POC Glucose 142 H 130 H Estimat Average Glucose Hemoglobin A1c Calcium Phosphorus Magnesium Triglycerides Cholesterol LDL Cholesterol, Calc VLDL Cholesterol, Calc HDL Cholesterol Cholesterol/HDL Ratio Procalcitonin 0.16 TSH 07/23/19 07/23/19 07/23/19 06:40 07:19 09:15 WBC RBC Hgb Hct MCV MCH MCHC RDW Std Deviation RDW Coeff of Tristan Plt Count MPV Immature Gran % (Auto) Neut % (Auto) Lymph % (Auto) Dunn % (Auto) Eos % (Auto) Baso % (Auto) Immature Gran # (Auto) Neut # (Auto) Lymph # (Auto) Dunn # (Auto) Eos # (Auto) Baso # (Auto) ABG pH ABG pCO2 ABG pO2 ABG HCO3 ABG O2 Saturation ABG Base Excess Maykel Test Barometric Pressure Oxygen Given Sodium Potassium Chloride Carbon Dioxide Anion Gap BUN Creatinine Est Cr Clr Drug Dosing Est GFR ( Amer) Est GFR (Non-Af Amer) BUN/Creatinine Ratio Glucose POC Glucose 153 H 150 H 266 H Estimat Average Glucose Hemoglobin A1c Calcium Phosphorus Magnesium Triglycerides Cholesterol LDL Cholesterol, Calc VLDL Cholesterol, Calc HDL Cholesterol Cholesterol/HDL Ratio Procalcitonin TSH 07/23/19 07/23/19 07/23/19 10:26 11:17 12:19 WBC RBC Hgb Hct MCV MCH MCHC RDW Std Deviation RDW Coeff of Tristan Plt Count MPV Immature Gran % (Auto) Neut % (Auto) Lymph % (Auto) Dunn % (Auto) Eos % (Auto) Baso % (Auto) Immature Gran # (Auto) Neut # (Auto) Lymph # (Auto) Dunn # (Auto) Eos # (Auto) Baso # (Auto) ABG pH ABG pCO2 ABG pO2 ABG HCO3 ABG O2 Saturation ABG Base Excess Maykel Test Barometric Pressure Oxygen Given Sodium Potassium Chloride Carbon Dioxide Anion Gap BUN Creatinine Est Cr Clr Drug Dosing Est GFR ( Amer) Est GFR (Non-Af Amer) BUN/Creatinine Ratio Glucose POC Glucose 234 H 195 H 149 H Estimat Average Glucose Hemoglobin A1c Calcium Phosphorus Magnesium Triglycerides Cholesterol LDL Cholesterol, Calc VLDL Cholesterol, Calc HDL Cholesterol Cholesterol/HDL Ratio Procalcitonin [facility] 07/23/19 07/23/19 07/23/19 13:17 14:24 15:15 WBC RBC Hgb Hct MCV MCH MCHC RDW Std Deviation RDW Coeff of Tristan Plt Count MPV Immature Gran % (Auto) Neut % (Auto) Lymph % (Auto) Dunn % (Auto) Eos % (Auto) Baso % (Auto) Immature Gran # (Auto) Neut # (Auto) Lymph # (Auto) Dunn # (Auto) Eos # (Auto) Baso # (Auto) ABG pH ABG pCO2 ABG pO2 ABG HCO3 ABG O2 Saturation ABG Base Excess Maykel Test Barometric Pressure Oxygen Given Sodium Potassium Chloride Carbon Dioxide Anion Gap BUN Creatinine Est Cr Clr Drug Dosing Est GFR ( Amer) Est GFR (Non-Af Amer) BUN/Creatinine Ratio Glucose POC Glucose 176 H 222 H 184 H Estimat Average Glucose Hemoglobin A1c Calcium Phosphorus Magnesium Triglycerides Cholesterol LDL Cholesterol, Calc VLDL Cholesterol, Calc HDL Cholesterol Cholesterol/HDL Ratio Procalcitonin TSH Diagnostic Findings XR chest 1V portable CLINICAL HISTORY: Respiratory failure COMPARISON STUDY: 07/22/2019 FINDINGS: The heart is mildly enlarged. There is improving pulmonary edema. There is a left-sided pacer/defibrillator. There is no pneumothorax. There are no significant pleural effusions.[ IMPRESSION: Resolving asymmetric pulmonary edema pattern. Medications Administered Current Inpatient Medications Acetaminophen (Tylenol) 650 mg PO Q4H PRN PRN Reason: Pain or Fever Stop: 08/21/19 15:00 Albuterol (Ventolin Hfa) 2 puffs INH QID PRN PRN Reason: Wheezing Stop: 08/21/19 15:00 Albuterol (Duoneb) 3 ml NEB Q2R PRN PRN Reason: Dyspnea Stop: 08/22/19 16:01 Last Admin: 07/23/19 16:29 Dose: 3 ml Documented by: Amiodarone HCl (Cordarone) 200 mg PO DAILY [facility] Stop: 08/23/19 08:59 Aspirin (Aspirin Chew) 81 mg PO DAILY [facility] Stop: 08/22/19 08:59 Last Admin: 07/23/19 07:45 Dose: 81 mg Documented by: Carvedilol (Coreg) 37.5 mg PO BID [facility] Stop: 08/22/19 20:59 Dextrose (Dextrose 50%) 25 - 50 ml IV UD PRN; Protocol PRN Reason: Hypoglycemia Protocol Stop: 08/21/19 17:15 Fluticasone Propionate (Flonase) 2 sprays GLADIS DAILY [facility] Stop: 08/22/19 08:59 Last Admin: 07/23/19 07:45 Dose: Not Given Documented by: Glucagon (Glucagen) 1 mg SQ UD PRN; Protocol PRN Reason: Hypoglycemia Protocol Stop: 08/21/19 17:15 Glucose (Glucose 40%) 15 - 30 gm PO UD PRN; Protocol PRN Reason: Hypoglycemia Protocol Stop: 08/21/19 17:15 Glucose (Dex4 Glucose) 4 - 8 tabs PO UD PRN; Protocol PRN Reason: Hypoglycemia Protocol Stop: 08/21/19 17:15 Heparin Sodium (Porcine) (Heparin Sodium (Porcine)) 5,000 units SQ Q12 [facility] Stop: 08/21/19 20:59 Last Admin: 07/23/19 07:46 Dose: 5,000 units Documented by: Hydralazine HCl (Hydralazine Hcl) 10 mg IV Q4H PRN PRN Reason: Blood Pressure - High Stop: 08/21/19 15:11 Furosemide 40 mg/ Syringe 4 mls @ 4 mls/min IV Q8 [facility] Stop: 08/21/19 15:59 Last Admin: 07/23/19 14:47 Dose: 4 mls/min Documented by: Insulin Human Regular 250 (units/ Sodium Chloride) 250 mls @ 4.6 mls/hr IV .Q24H [facility]; Protocol Stop: 08/22/19 00:14 Last Titration: 07/23/19 17:15 Dose: 5.5 units/hr, 5.5 mls/hr Documented by: Insulin Aspart (Novolog Flexpen) 0 units SC ACHS [facility] Stop: 08/22/19 15:00 Last Admin: 07/23/19 12:42 Dose: 5 units Documented by: Insulin Glargine (Lantus Solostar Pen) 0 units SC Q12H [facility]; Protocol Stop: 08/22/19 20:59 Isosorbide Mononitrate (Imdur Extended Rel) 30 mg PO QAM [facility] Stop: 08/23/19 08:59 Lorazepam (Ativan) 0.5 mg PO Q6H PRN PRN Reason: anxiety Stop: 08/21/19 15:00 Mexiletine HCl (Mexiletine Hcl) 1 ea PO BID [facility] Stop: 08/21/19 20:59 Last Admin: 07/23/19 07:46 Dose: 1 ea Documented by: Miscellaneous (Carbohydrates For Hypoglycemia) 15 - 30 gm PO UD PRN PRN Reason: Hypoglycemia Treatment Stop: 08/21/19 17:15 Miscellaneous Information (Consult Glycemic Management Pharmacy) 1 ea N/A UD PRN; Protocol PRN Reason: Consult Stop: 08/21/19 17:59 Nitroglycerin (Nitrostat) 0.4 mg SL Q5M PRN PRN Reason: Chest Pain Stop: 08/21/19 15:00 Last Admin: 07/23/19 14:42 Dose: 0.4 mg Documented by: Polyethylene Glycol (Miralax Powder Packet) 17 gm PO DAILY PRN PRN Reason: Constipation Stop: 08/21/19 15:00 Sacubitril/Valsartan (Entresto 49/51mg) 1 tab PO BID [facility] Stop: 08/22/19 20:59 Tramadol HCl (Ultram) 50 mg PO Q4H PRN PRN Reason: Pain Stop: 08/21/19 23:53 Last Admin: 07/23/19 10:39 Dose: 50 mg Documented by: Vitamin D (Vitamin D3) 1,000 units PO DAILY [facility] Stop: 08/22/19 08:59 Last Admin: 07/23/19 07:46 Dose: 1,000 units Documented by: Zolpidem Tartrate (Ambien) 5 mg PO HS PRN PRN Reason: Sleep Stop: 08/21/19 15:00 PG Care Time/CCT Total # of Minutes Spent Total Time Spent with Patient: Total time spent is greater than 50% in coordination of care (as documented) at patient's floor/unit and/or counseling patient:
[2019-07-23] MEDS: ACETAMINOPHEN 325 MG TAB PO PRN (17:30)
[2019-07-23] MEDS: INSULIN GLARGINE SOLOSTAR 100 UNITS/ML 3 ML PEN SC SCH (20:44)
[2019-07-23] MEDS: CARVEDILOL 12.5 MG TAB PO SCH (20:51)
[2019-07-23] MEDS: SACUBITRIL-VALSARTAN 49/51 MG TAB PO SCH (20:52)
[2019-07-23] MEDS ORDERED: MEXILETINE 150 MG PO SCH (21:00)
[2019-07-24] MEDS ORDERED: INSULIN ASPART 100 UNITS/ML 3 ML PEN SC ONE (04:00)
[2019-07-24] MEDS: FUROSEMIDE 40 MG in SYRINGE 0 ML IV SCH ×3 (06:05→21:30)
[2019-07-24 06:44] LABS: Basophils # (auto) 0.01 K/uL (0-0.2); Basophils % (auto) 0.1 %; Eosinophils # (auto) 0.03 K/uL (0-0.5); Eosinophils % (auto) 0.2 %; Hematocrit (blood only) 44.3 % (42-52); Hemoglobin 14.7 g/dL (14.0-18.0); Immature Granulocytes # (auto) 0.07 K/uL (0.00-0.02); Immature Granulocytes % (auto) 0.4 %; Lymphocytes # (auto) 1.94 K/uL (1.2-3.4); Lymphocytes % (auto) 12.5 %; Mean Corpuscular Hemoglobin 29.6 pg (25-34); Mean Corpuscular Hgb Conc 33.2 g/dL (32-36); Mean Corpuscular Volume 89.3 fL (80-100); Mean Platelet Volume 10.6 fL (7.4-10.4); Monocytes # (auto) 1.37 K/uL (0.11-0.59); Monocytes % (auto) 8.8 %; Neutrophils # (auto) 12.15 K/uL (1.4-6.5); Platelet Count 171 K/uL (130-400); RDW Coefficient of Variation 14.7 % (11.5-14.5); RDW Standard Deviation 47.7 fL (36.4-46.3); Red Blood Count 4.96 M/uL (4.7-6.1); White Blood Count 15.57 K/uL (4.8-10.8)
[2019-07-24 06:46] LABS: Base Excess ABG 3.8 mEq/L (-9-1.8); HCO3 ABG 29 mmol/L (19-24); Oxygen Saturation ABG 98.9 % (90-95); PCO2 ABG 45 mmHg (35-46); PO2 ABG 136 mm/Hg (80-95); pH ABG 7.43 (7.35-7.45)
[2019-07-24 07:17] LABS: BUN Creatinine Ratio 22.7 (10-20); Calcium 8.5 mg/dl (8.5-10.1); Creatinine Clr Calc Pharmacy 54.2 ml/min; Est GFR (African American) 51.6; Est GFR (Non-African American) 44.5; Magnesium 2.3 mg/dl (1.8-2.4); Potassium 4.2 mmol/L (3.5-5.1)
[2019-07-24 07:21] LABS: Phosphorus 4.1 mg/dl (2.5-4.9)
[2019-07-24 07:34] LABS: Allen Test POS (Pos)
--- NOTE | 2019-07-24 08:43 | Pharmacy Report ---
Pharmacy Glycemic Short Note 2 - Date of Service July 24, 2019 - Glycemic Short BSG Results (Last 24 hours): 07/23/19 07/23/19 07/23/19 09:15 10:26 11:17 Glucose POC Glucose 266 H 234 H 195 H 07/23/19 07/23/19 07/23/19 12:19 13:17 14:24 Glucose POC Glucose 149 H 176 H 222 H 07/23/19 07/23/19 07/23/19 15:15 16:12 17:14 Glucose POC Glucose 184 H 191 H 199 H 07/23/19 07/23/19 07/23/19 18:14 19:12 20:16 Glucose POC Glucose 250 H 257 H 243 H 07/23/19 07/23/19 07/23/19 21:49 22:22 23:20 Glucose POC Glucose 194 H 219 H 164 H 07/24/19 07/24/19 07/24/19 00:21 01:18 01:34 Glucose POC Glucose 124 H 95 93 07/24/19 07/24/19 07/24/19 01:53 02:09 02:27 Glucose POC Glucose 88 109 H 97 07/24/19 07/24/19 07/24/19 04:10 06:33 07:35 Glucose 124 H POC Glucose 106 H 113 H OUTPATIENT ANTIDIABETIC REGIMEN: * Glimepiride 2mg QD ASSESSMENT: 07/24/19 * Insulin drip placed on hold at 0200, blood sugars at goal. Will discontinue insulin drip and use basal bolus insulin at this time. Patient has been on both basal insulin and insulin drip for smoother transition to SQ insulin. * Patient had 70 units of basal + 16 units bolus, + insulin drip running ~3.3 units/hr --> very high insulin requirements for patient with A1c 8.1% and minimal insulin resistant stressors as inpatient. Will continue to monitor blood sugars and taper dosing down to prevent hypoglycemia. 07/23/19 * A1c 07/23/19: 8.1% * Patient received a weight based stress of two lantus dose last evening but became hyperglycemic overnight, necessitating an IV insulin infusion. Drip remained 3.3 units/hr overnight. Provider initially wanted to transition off the insulin infusion and a total of 40 units of lantus was administered this morning. However, as patient became hyperglycemic again after breakfast it was decided to continue the infusion through today until the insulin infusion rate trends down (<2 units/hr). I will continue with concomitant lantus dosing to help assist eventual drip transition. In addition a fixed carb ratio will be used (rather than the IV insulin infusion calculator) to ensure appropriate coverage. Given patient A1c and only on one oral agent as an outpatient, it is unusual that the patient is requiring this amount of insulin. I anticipate needing to back off on total daily insulin doses tomorrow. PLAN FOR INPATIENT GLYCEMIC CONTROL: * Hold outpatient oral diabetes medications * Discontinue IV insulin infusion, on hold since 0200 today * Basal insulin * Lantus SQ BID * 10 units BSG < 110mg/dl * 20 units BSG 110-200mg/dl * 30 units BSG > 200mg/dl * Bolus insulin * NovoLog per scale ACHS or Q6hrs while NPO * Goal Range: Low 110 mg/dL - High 140 mg/dL * Correction factor: 20mg/dl/unit * Nutritional / Prandial insulin per carb ratio of 1 unit per 7 grams CHO consumed DISCHARGE RECOMMENDATIONS: to be determined.
[2019-07-24] MEDS: INSULIN ASPART 100 UNITS/ML 3 ML PEN SC SCH ×5 (08:47→23:59)
[2019-07-24] MEDS: INSULIN GLARGINE SOLOSTAR 100 UNITS/ML 3 ML PEN SC SCH ×2 (08:47→21:27)
[2019-07-24] MEDS: HEPARIN SOD 5,000 UNIT/0.5 ML VIAL SQ SCH ×2 (08:48→21:14)
[2019-07-24] MEDS: AMIODARONE 200 MG TAB PO SCH (08:49)
[2019-07-24] MEDS: FLUTICASONE PROPIONATE NA SPR 16 GM BTL NAE SCH (08:50)
[2019-07-24] MEDS: ISOSORBIDE MONO EXTENDED REL 30 MG TABCR PO SCH (08:50)
[2019-07-24] MEDS: SACUBITRIL-VALSARTAN 49/51 MG TAB PO SCH ×3 (08:50→21:33)
[2019-07-24] MEDS: ASPIRIN 81 MG CHEW PO SCH (08:51)
[2019-07-24] MEDS: CHOLECALCIFEROL 1,000 UNITS TAB PO SCH (08:52)
[2019-07-24] MEDS: CARVEDILOL 12.5 MG TAB PO SCH ×2 (08:52→21:10)
[2019-07-24] MEDS ORDERED: ASPIRIN 81 MG ECTAB PO SCH (09:00)
[2019-07-24] MEDS: MEXILETINE HCL PO SCH ×2 (09:37→21:59)
--- NOTE | 2019-07-24 10:13 | Cardiology Consultation ---
Date of Consultation July 24, 2019 Assessment & Plan (1) Acute on chronic systolic CHF (congestive heart failure): Suspect the patient's decompensation was related to dietary indiscretion with salt. I also question his compliance with medications. Would attempt to reinstitute his carvedilol. He was taking Entresto only 1 time daily. We can attempt to resume that medication after carvedilol has been restarted. (2) Ischemic cardiomyopathy: Ejection fraction on current echocardiogram significantly reduced at 20- 25% with severe global hypokinesis. (3) Presence of combination internal cardiac defibrillator (ICD) and pacemaker: The patient had a biventricular ICD placed in July 2017. This is a [employer] device. We will attempt to have it interrogated while he is hospitalized. (4) Hypertension: The patient demonstrates relative hypotension on current regimen. (5) Hypercholesterolemia: Will discussed initiating a statin. History of Present Illness Attending Physician: Apolinar López DO History of Present Illness Mr. Vee is a 63-year-old male transferred from [facility] yesterday because of decompensated CHF. The patient was in his usual state of health until approximately 24 hours prior to presentation. He began to experience progressive shortness of breath, PND, and orthopnea. He also noted weight gain from his usual dry weight of 234 pounds up to a weight of 240 pounds. He did not administer extra diuretics. He admits to noncompliance with a low-salt diet as he was eating lunch meats and viera. On arrival here, the patient was in extremis. He was placed on BiPAP and given intravenous diuretics. Fortunately, he improved rapidly. He now feels he is at his usual baseline. The patient has a long and complicated past medical history. He developed a nonischemic cardiomyopathy back in 1980 related to alcohol and cocaine use. He was also diagnosed with significant coronary artery disease. His most recent cardiac catheterization was performed in February 2017 revealing a 90 percent ostial left main, 70 percent distal left main, 60 percent ostial LAD, and a 70 percent 1st diagonal branch. He was turned down for bypass surgery by [facility]. He was hospitalized back in March after a defibrillator discharge. The patient was restarted on low-dose amiodarone despite difficulties without medication when on b.i.d. dosing. He has tolerated that addition without difficulty. An echocardiogram performed during that hospitalization in March noted global hypokinesis with an ejection fraction of 30-35% and mild to moderate mitral regurgitation. The patient has been doing well in terms of his chronic systolic CHF. He does follow daily weights at home and notes a dry weight of 235 pounds. He has not required additional diuretics in many months. The patient does have a biventricular ICD. This is a [employer] device and was exchanged in July 2017. The patient follows blood pressures routinely at home and notes her range of 110-115 over 50-60. He carries a diary with him today. The patient does have bilateral renal cell carcinoma. He is followed closely by Dr. Rivera. His medications reviewed in detail. He is only taking his Entresto once daily as b.i.d. dosing caused significant hypotension. A 10 point review of systems was undertaken and negative except for that described above. Past medical and surgical history 1. Inoperable coronary artery disease-turned down by CT surgery [place] [facility] 2. [id number] and March 2019 3. Chronic systolic CHF 4. Chronic stable angina pectoris 5. Mild to moderate mitral regurgitation-March 2019 6. Nonsustained ventricular tachycardia-amiodarone and mexiletine 7. Biventricular ICD-[employer], July 2017 8. Hypertension 9. Hypercholesterolemia 10. Diabetes mellitus 11. COPD 12. Chronic renal failure 13. Obstructive sleep apnea 14. Hepatitis-C 15. Bilateral renal cell carcinoma-turned down for surgery at [facility] and [facility] Social history and lives with his [place] [employer] MD at [employer] No tobacco or alcohol Family history Noncontributory. Allergies Allergy/AdvReac Type Severity Reaction Status Date / Time budesonide Allergy Unknown TACHYCARDIA, Verified 07/28/17 07:23 SOB carbamazepine Allergy Unknown TACHYCARDIA, Verified 07/28/17 07:23 PANIC ATTACK cyclobenzaprine Allergy Unknown UNK Verified 07/28/17 07:23 doxycycline Allergy Unknown ABD PAIN Verified 07/28/17 07:23 fluticasone Allergy Unknown UNK Verified 07/28/17 07:23 formoterol Allergy Unknown TACHYCARDIA, Verified 07/28/17 07:23 SOB salmeterol Allergy Unknown ANAPHYLAXIS Verified 07/28/17 07:23 morphine Allergy Unknown Verified 07/22/19 15:12 tiotropium Allergy Unknown Verified 07/22/19 15:12 [From Spiriva with HandiHaler] digoxin AdvReac Unknown BACK AND Verified 07/28/17 07:23 STOMACH PAIN metformin AdvReac Unknown MUSCLE Verified 07/28/17 07:23 ACHES IN BVACK AND KIDNEYS Sodium Propionate Allergy Unknown SHORTNESS Uncoded 07/28/17 07:23 OF BREATH Home Medications Home Medications Medication Instructions Recorded Confirmed Type albuterol sulfate [Ventolin HFA] 2 puff INHALATION QID PRN 10/01/18 07/24/19 History Oxygen Home 07/22/19 07/24/19 History amiodarone 200 mg PO DAILY 07/22/19 07/24/19 History aspirin [Ecotrin Low Strength] 81 mg PO DAILY 07/22/19 07/24/19 History bumetanide 1 mg PO BID 07/22/19 07/24/19 History carvedilol 37.5 mg PO BID 07/22/19 07/24/19 History cholecalciferol (vitamin D3) 1,000 unit PO DAILY 07/22/19 07/24/19 History clotrimazole-betamethasone 1 applic TOPICAL BID 07/22/19 07/24/19 History coenzyme Q10 100 mg PO DAILY 07/22/19 07/24/19 History fluticasone propionate 1 spray INTRANASAL DAILY 07/22/19 07/24/19 History glimepiride 2 mg PO DAILY 07/22/19 07/24/19 History ipratropium-albuterol 3 ml INHALATION QID 07/22/19 07/24/19 History isosorbide mononitrate 30 mg PO QAM 07/22/19 07/24/19 History lorazepam 0.5 mg PO Q6H PRN 07/22/19 07/24/19 History mexiletine 150 mg PO BID 07/22/19 07/24/19 History nitroglycerin 0.4 mg SUBLINGUAL Q5M PRN 07/22/19 07/24/19 History oxycodone-acetaminophen 1 tab PO Q12H PRN 07/22/19 07/24/19 History sacubitril-valsartan [Entresto] 1 tab PO QAM 07/22/19 07/24/19 History tramadol 50 mg PO Q4H PRN 07/22/19 07/24/19 History Patient History Medical History Asthma Chronic renal impairment Diabetes mellitus, type 2 H/O weight disorder Hepatitis C Hypertriglyceridemia ICD (implantable cardioverter-defibrillator) in place Peripheral neuropathy Surgical History H/O heart surgery Family History Unknown Cardiac disorder Hypertension Diabetes Social History Preferred Language: Maori Communication Ability: Effective Visual Impairment: No Limitations Device Engineer Required: No Beliefs That Will Affect Care: Anabaptism marital status: Current Living Situation: Spouse Current Living Situation Comment: with & son Other Information That Helps Us Care for You: No Feels Safe at Home: Yes Safety Concerns: Feels Safe At This Time Smoking Status: Former smoker Tobacco Type: cigarettes ; Do You Dip or Chew To bacco: No ; Second Hand Exposure: No ; Tobacco Cessation Education Requested by Patient: No Hx Alcohol Use: No Hx Substance Use: No Physical Exam Physical Exam: In general is well-developed well-nourished white male no acute distress. HEENT exam is negative. Neck is supple with full carotid upstrokes. No carotid bruits. Jugular venous pressure is flat at 90 degrees. No thyromegaly. Cardiovascular exam reveals regular rhythm with distant heart sounds. No obvious murmurs. No S3. Chest reveals a palpable device in the left subclavicular region. Lungs are clear without rales, rhonchi or wheezes. Abdomen is obese without bruits. Extremities reveal intact radial artery pulses bilaterally. There is no peripheral edema. Results & Data Vital Signs (Past 12 Hours) Vital Signs Temp Pulse Pulse Resp BP Pulse Ox 07/24/19 08:40 70 98/60 L 07/24/19 06:53 36.5 C 60 22 102/64 98 07/24/19 03:49 36.4 C L 69 66 20 107/65 96 07/23/19 23:00 36.5 C 61 20 107/66 95 Laboratory Results [facility] notes a hemoglobin of 14.7, hematocrit 44.3, white count 15.57, and platelet count of 467053. Electrolytes notice sodium 140, potassium 4.2, chloride 105, bicarb 27, BUN 36, creatinine 1.6, and glucose of 124. Troponin I levels less than 0.015. Magnesium is normal at 2.3. BNP is elevated at 3914. TSH is normal at 2.65. LDL cholesterol is 139 with an HDL low at 32. Diagnostic Findings Echocardiogram notes severe left ventricular dysfunction with ejection fraction of 20-25% with severe global hypokinesis. There is mild mitral regurgitation. EKG notes atrial sensing and a ventricular paced rhythm. A biventricular pacer is detected. Chest x-ray notes cardiomegaly and resolving asymmetric pulmonary edema. PG Care Time/CCT Total # of Minutes Spent Total Time Spent with Patient: Total time spent is greater than 50% in coordination of care (as documented) at patient's floor/unit and/or counseling patient:
[2019-07-24] MEDS: TRAMADOL HCL 50 MG TABLET PO PRN ×2 (11:33→23:38)
--- NOTE | 2019-07-24 14:06 | Heart Failure Progress Note ---
Date of Service July 24, 2019 Assessment & Plan (1) Acute on chronic systolic CHF (congestive heart failure): (2) Ischemic cardiomyopathy: Acute systolic CHF- Patient is responding well to current diuretic regimen. I suspect he is near euvolemic. Current exacerbation likely secondary to dietary indiscretion. Would recommend transition to home PO regimen prior to discharge. Continue close monitoring of kidney function and electrolytes. Strict I&O's. Daily standing weights. Patient states he does typically weigh himself at home but remains within a 3-4 lb range even prior to hospitalization. He admits he can improve his diet. We discussed the nature of the heart failure program and he is willing to participate. His can likely bring him to his appointments if she's not working. Anticipate follow with CHF team within 7 days of discharge. He should bring his weight log. He was instructed to notify the CHF team if he develops any symptoms of decompensation or weight gain. Cardiomyopathy- Patient was previously on adequate guideline based medical therapy. Left ventricular systolic function is slightly worse than previous on his recent echo (20-25%, previously 30-35%). He was recently feeling more fatigue and having issues with hypotension so he self discontinued Entresto. Could consider re-introducing at lower dose if he's willing to retrial. Continue Carvedilol 37.5 mg BID. Would recommend additional cautious titration of his GDMT if he's willing. ICD in place. Goals of care- Palliative care previously involved (03/2018 admission). At that time he wished to be a full code. At this time his wishes remain the same. He does not have advanced directives at this time. Would like benefit from continued discussion given his recent hospitalizations. For now, he declines. Disposition: Will follow during hospitalization. Anticipate CHF follow up within 7 days of discharge, labs prior. Subjective Claudio reports he's doing much better this morning. He's sitting up in bed and breathing comfortably. He denies lower extremity edema or worsening orthopnea. He has effected a significant diuresis of - 6L since admission. He continues Lasix 40 mg IV q 8 hrs. Kidney function has improved with diuresis and is now at baseline. Results & Data Vital Signs (Past 12 Hours) Vital Signs Temp Pulse Pulse Resp BP Pulse Ox 07/24/19 11:20 97.9 F 66 18 113/73 94 07/24/19 08:40 70 98/60 L 07/24/19 06:53 97.7 F 60 22 102/64 98 07/24/19 03:49 97.5 F L 69 66 20 107/65 96
--- NOTE | 2019-07-24 16:00 | Hospitalist Progress Note ---
Date of Service July 24, 2019 Assessment & Plan (1) Acute on chronic systolic CHF (congestive heart failure): likely due to inability to follow fluid restriction or salt restriction will continue on Lasix 40mg IV q8, responding well in first 48 hours negative 7200cc on balance, weight trending down Cr stable at 1.6 echo with EF of 20%, global hypokinesis consult Dr. Hagan for recommendations discussed with Monique Hi, CHF clinic will follow him after discharge resume Coreg will likely try to resume Entresto as outpatient (2) Acute respiratory failure: due to acute heart failure no evidence of pneumonia does have long standing COPD, no wheezing or other signs of exacerbation (3) Hypertension: BP always runs low normal monitor while on Coreg (4) Coronary artery disease: no chest pain troponin was not checked here continue aspirin, coreg, imdur he was evaluated for CABG in the past but not a candidate (5) Stage III chronic kidney disease: Cr 1.8 on admission, down to 1.6 today will continue to watch closely with diuresis (6) Atrial fibrillation with RVR: Continue Coreg, amiodarone. Patient also takes mexiletine at home, obtained a three day supply from [employer] (7) Obstructive sleep apnea of adult: CPAP at night when off BIPAP and stable Subjective patient breathing better reviewed I/O, he is negative 7.2 liters for the admission Cr is actually down at 1.6 from 1.9 discussed the case with Dr. Hagan, appreciate his recommendations resuming Coreg, hopeful that we can resume low dose Entresto reviewed echo results, EF is 20% with global hypokinesis Review of Systems Review of Systems: All systems reviewed & are unremarkable except as noted in HPI & below Constitutional: no fever Respiratory: + dyspnea on exertion; no cough and no dyspnea Cardiovascular: no chest pain and no edema Gastrointestinal: no abdominal pain, no nausea, no vomiting, no constipation and no diarrhea/loose stools Physical Exam Constitutional: WD/WN, vitals as above Eyes: PERRL, conjunctivae normal, anicteric sclerae ENMT: external ear and nose normal, oropharynx normal Neck: trachea midline, no thyromegaly Respiratory: normal respiratory effort; no respiratory distress Auscultation: + diminished lung sounds; no rhonchi and no wheezes Cardiovascular: Rate/Rhythm: regular rate and regular rhythm Heart Sounds: normal S1 and normal S2; no murmur Vessels: no JVD Extremities: normal capillary refill; no edema Gastrointestinal (Abdomen): normal bowel sounds, soft, nontender, no hepatosplenomegaly Musculoskeletal: no cyanosis or clubbing, extremities motor strength 5/5 Skin: no rashes, warm and dry Neurologic: patellar DTR's 2+ bilat, sensation intact and PERRL, EOMI, accommodation nl, no face palsy, no dysarthria Psychiatric: A+Ox3, euthymic affect Lymphatic: no cervical or axillary lymphadenopathy Results & Data Vital Signs (Past 12 Hours) Vital Signs Temp Pulse Resp BP Pulse Ox 07/24/19 15:34 36.5 C 54 L 18 105/66 95 07/24/19 11:20 36.6 C 66 18 113/73 94 07/24/19 08:40 70 98/60 L 07/24/19 06:53 36.5 C 60 22 102/64 98 Laboratory Results Laboratory Results - last 24 hr 07/23/19 07/23/19 07/23/19 16:12 17:14 18:14 WBC RBC Hgb Hct MCV MCH MCHC RDW Std Deviation RDW Coeff of Tristan Plt Count MPV Immature Gran % (Auto) Neut % (Auto) Lymph % (Auto) Jasper % (Auto) Eos % (Auto) Baso % (Auto) Immature Gran # (Auto) Neut # (Auto) Lymph # (Auto) Jasper # (Auto) Eos # (Auto) Baso # (Auto) ABG pH ABG pCO2 ABG pO2 ABG HCO3 ABG O2 Saturation ABG Base Excess Maykel Test Barometric Pressure Oxygen Given Sodium Potassium Chloride Carbon Dioxide Anion Gap BUN Creatinine Est Cr Clr Drug Dosing Est GFR ( Amer) Est GFR (Non-Af Amer) BUN/Creatinine Ratio Glucose POC Glucose 191 H 199 H 250 H Calcium Phosphorus Magnesium 07/23/19 07/23/19 07/23/19 19:12 20:16 21:49 WBC RBC Hgb Hct MCV MCH MCHC RDW Std Deviation RDW Coeff of Tristan Plt Count MPV Immature Gran % (Auto) Neut % (Auto) Lymph % (Auto) Jasper % (Auto) Eos % (Auto) Baso % (Auto) Immature Gran # (Auto) Neut # (Auto) Lymph # (Auto) Jasper # (Auto) Eos # (Auto) Baso # (Auto) ABG pH ABG pCO2 ABG pO2 ABG HCO3 ABG O2 Saturation ABG Base Excess Maykel Test Barometric Pressure Oxygen Given Sodium Potassium Chloride Carbon Dioxide Anion Gap BUN Creatinine Est Cr Clr Drug Dosing Est GFR ( Amer) Est GFR (Non-Af Amer) BUN/Creatinine Ratio Glucose POC Glucose 257 H 243 H 194 H Calcium Phosphorus Magnesium 07/23/19 07/23/19 07/24/19 22:22 23:20 00:21 WBC RBC Hgb Hct MCV MCH MCHC RDW Std Deviation RDW Coeff of Tristan Plt Count MPV Immature Gran % (Auto) Neut % (Auto) Lymph % (Auto) Jasper % (Auto) Eos % (Auto) Baso % (Auto) Immature Gran # (Auto) Neut # (Auto) Lymph # (Auto) Jasper # (Auto) Eos # (Auto) Baso # (Auto) ABG pH ABG pCO2 ABG pO2 ABG HCO3 ABG O2 Saturation ABG Base Excess Maykel Test Barometric Pressure Oxygen Given Sodium Potassium Chloride Carbon Dioxide Anion Gap BUN Creatinine Est Cr Clr Drug Dosing Est GFR ( Amer) Est GFR (Non-Af Amer) BUN/Creatinine Ratio Glucose POC Glucose 219 H 164 H 124 H Calcium Phosphorus Magnesium 07/24/19 07/24/19 07/24/19 01:18 01:34 01:53 WBC RBC Hgb Hct MCV MCH MCHC RDW Std Deviation RDW Coeff of Tristan Plt Count MPV Immature Gran % (Auto) Neut % (Auto) Lymph % (Auto) Jasper % (Auto) Eos % (Auto) Baso % (Auto) Immature Gran # (Auto) Neut # (Auto) Lymph # (Auto) Jasper # (Auto) Eos # (Auto) Baso # (Auto) ABG pH ABG pCO2 ABG pO2 ABG HCO3 ABG O2 Saturation ABG Base Excess Maykel Test Barometric Pressure Oxygen Given Sodium Potassium Chloride Carbon Dioxide Anion Gap BUN Creatinine Est Cr Clr Drug Dosing Est GFR ( Amer) Est GFR (Non-Af Amer) BUN/Creatinine Ratio Glucose POC Glucose 95 93 88 Calcium Phosphorus Magnesium 07/24/19 07/24/19 07/24/19 02:09 02:27 04:10 WBC RBC Hgb Hct MCV MCH MCHC RDW Std Deviation RDW Coeff of Tristan Plt Count MPV Immature Gran % (Auto) Neut % (Auto) Lymph % (Auto) Jasper % (Auto) Eos % (Auto) Baso % (Auto) Immature Gran # (Auto) Neut # (Auto) Lymph # (Auto) Jasper # (Auto) Eos # (Auto) Baso # (Auto) ABG pH ABG pCO2 ABG pO2 ABG HCO3 ABG O2 Saturation ABG Base Excess Maykel Test Barometric Pressure Oxygen Given Sodium Potassium Chloride Carbon Dioxide Anion Gap BUN Creatinine Est Cr Clr Drug Dosing Est GFR ( Amer) Est GFR (Non-Af Amer) BUN/Creatinine Ratio Glucose POC Glucose 109 H 97 106 H Calcium Phosphorus Magnesium 07/24/19 07/24/19 07/24/19 06:33 06:34 06:34 WBC 15.57 H RBC 4.96 Hgb 14.7 Hct 44.3 MCV 89.3 MCH 29.6 MCHC 33.2 RDW Std Deviation 47.7 H RDW Coeff of Tristan 14.7 H Plt Count 171 MPV 10.6 H Immature Gran % (Auto) 0.4 Neut % (Auto) 78.0 Lymph % (Auto) 12.5 Jasper % (Auto) 8.8 Eos % (Auto) 0.2 Baso % (Auto) 0.1 Immature Gran # (Auto) 0.07 H Neut # (Auto) 12.15 H Lymph # (Auto) 1.94 Jasper # (Auto) 1.37 H Eos # (Auto) 0.03 Baso # (Auto) 0.01 ABG pH 7.43 ABG pCO2 45 ABG pO2 136 H ABG HCO3 29 H ABG O2 Saturation 98.9 H ABG Base Excess 3.8 H Maykel Test POS Barometric Pressure 734.5 Oxygen Given 5L Sodium 140 Potassium 4.2 Chloride 105 Carbon Dioxide 27 Anion Gap 8.0 BUN 36 H Creatinine 1.60 H D Est Cr Clr Drug Dosing 54.2 Est GFR ( Amer) 51.6 Est GFR (Non-Af Amer) 44.5 BUN/Creatinine Ratio 22.7 H Glucose 124 H POC Glucose Calcium 8.5 Phosphorus 4.1 Magnesium 2.3 07/24/19 07/24/19 07:35 11:39 WBC RBC Hgb Hct MCV MCH MCHC RDW Std Deviation RDW Coeff of Tristan Plt Count MPV Immature Gran % (Auto) Neut % (Auto) Lymph % (Auto) Jasper % (Auto) Eos % (Auto) Baso % (Auto) Immature Gran # (Auto) Neut # (Auto) Lymph # (Auto) Jasper # (Auto) Eos # (Auto) Baso # (Auto) ABG pH ABG pCO2 ABG pO2 ABG HCO3 ABG O2 Saturation ABG Base Excess Maykel Test Barometric Pressure Oxygen Given Sodium Potassium Chloride Carbon Dioxide Anion Gap BUN Creatinine Est Cr Clr Drug Dosing Est GFR ( Amer) Est GFR (Non-Af Amer) BUN/Creatinine Ratio Glucose POC Glucose 113 H 210 H Calcium Phosphorus Magnesium Medications Administered Current Inpatient Medications Acetaminophen (Tylenol) 650 mg PO Q4H PRN PRN Reason: Pain or Fever Stop: 08/21/19 15:00 Last Admin: 07/23/19 17:30 Dose: 650 mg Documented by: Albuterol (Ventolin Hfa) 2 puffs INH QID PRN PRN Reason: Wheezing Stop: 08/21/19 15:00 Albuterol (Duoneb) 3 ml NEB Q2R PRN PRN Reason: Dyspnea Stop: 08/22/19 16:01 Last Admin: 07/23/19 16:29 Dose: 3 ml Documented by: Amiodarone HCl (Cordarone) 200 mg PO DAILY [facility] Stop: 08/23/19 08:59 Last Admin: 07/24/19 08:49 Dose: 200 mg Documented by: Aspirin (Aspirin Chew) 81 mg PO DAILY [facility] Stop: 08/22/19 08:59 Last Admin: 07/24/19 08:51 Dose: 81 mg Documented by: Carvedilol (Coreg) 37.5 mg PO BID [facility] Stop: 08/22/19 20:59 Last Admin: 07/24/19 08:52 Dose: Not Given Documented by: Dextrose (Dextrose 50%) 25 - 50 ml IV UD PRN; Protocol PRN Reason: Hypoglycemia Protocol Stop: 08/21/19 17:15 Fluticasone Propionate (Flonase) 2 sprays GLADIS DAILY [facility] Stop: 08/22/19 08:59 Last Admin: 07/24/19 08:50 Dose: 2 sprays Documented by: Glucagon (Glucagen) 1 mg SQ UD PRN; Protocol PRN Reason: Hypoglycemia Protocol Stop: 08/21/19 17:15 Glucose (Glucose 40%) 15 - 30 gm PO UD PRN; Protocol PRN Reason: Hypoglycemia Protocol Stop: 08/21/19 17:15 Glucose (Dex4 Glucose) 4 - 8 tabs PO UD PRN; Protocol PRN Reason: Hypoglycemia Protocol Stop: 08/21/19 17:15 Heparin Sodium (Porcine) (Heparin Sodium (Porcine)) 5,000 units SQ Q12 [facility] Stop: 08/21/19 20:59 Last Admin: 07/24/19 08:48 Dose: 5,000 units Documented by: Hydralazine HCl (Hydralazine Hcl) 10 mg IV Q4H PRN PRN Reason: Blood Pressure - High Stop: 08/21/19 15:11 Furosemide 40 mg/ Syringe 4 mls @ 4 mls/min IV Q8 [facility] Stop: 08/21/19 15:59 Last Admin: 07/24/19 14:04 Dose: 4 mls/min Documented by: Insulin Aspart (Novolog Flexpen) 0 units SC ACHS [facility] Stop: 08/23/19 07:29 Last Admin: 07/24/19 12:32 Dose: 13 units Documented by: Insulin Aspart (Novolog Flexpen) 0 units SC 0000,[id number] [facility] Stop: 07/25/19 04:01 Insulin Glargine (Lantus Solostar Pen) 0 units SC Q12H [facility]; Protocol Stop: 08/22/19 20:59 Last Admin: 07/24/19 08:47 Dose: 20 units Documented by: Isosorbide Mononitrate (Imdur Extended Rel) 30 mg PO QAM [facility] Stop: 08/23/19 08:59 Last Admin: 07/24/19 08:50 Dose: 30 mg Documented by: Lorazepam (Ativan) 0.5 mg PO Q6H PRN PRN Reason: anxiety Stop: 08/21/19 15:00 Mexiletine HCl (Mexiletine Hcl) 1 ea PO BID [facility] Stop: 08/21/19 20:59 Last Admin: 07/24/19 09:37 Dose: 1 ea Documented by: Miscellaneous (Carbohydrates For Hypoglycemia) 15 - 30 gm PO UD PRN PRN Reason: Hypoglycemia Treatment Stop: 08/21/19 17:15 Miscellaneous Information (Consult Glycemic Management Pharmacy) 1 ea N/A UD PRN; Protocol PRN Reason: Consult Stop: 08/21/19 17:59 Nitroglycerin (Nitrostat) 0.4 mg SL Q5M PRN PRN Reason: Chest Pain Stop: 08/21/19 15:00 Last Admin: 07/23/19 14:42 Dose: 0.4 mg Documented by: Polyethylene Glycol (Miralax Powder Packet) 17 gm PO DAILY PRN PRN Reason: Constipation Stop: 08/21/19 15:00 Sacubitril/Valsartan (Entresto 49/51mg) 1 tab PO BID [facility] Stop: 08/22/19 20:59 Last Admin: 07/24/19 08:50 Dose: Not Given Documented by: Tramadol HCl (Ultram) 50 mg PO Q4H PRN PRN Reason: Pain Stop: 08/21/19 23:53 Last Admin: 07/24/19 11:33 Dose: 50 mg Documented by: Vitamin D (Vitamin D3) 1,000 units PO DAILY [facility] Stop: 08/22/19 08:59 Last Admin: 07/24/19 08:52 Dose: 1,000 units Documented by: Zolpidem Tartrate (Ambien) 5 mg PO HS PRN PRN Reason: Sleep Stop: 08/21/19 15:00 PG Care Time/CCT Total # of Minutes Spent Total Time Spent with Patient: Total time spent is greater than 50% in coordination of care (as documented) at patient's floor/unit and/or counseling p atient:
[2019-07-24] MEDS: ALBUT/IPRATROP 3MG/0.5MG NEB 3 ML VIAL NEB PRN (23:45)
[2019-07-25] MEDS: INSULIN REGULAR 250 UNITS in SODIUM CHLORIDE 0.9% 247.5 ML IV SCH (00:49)
[2019-07-25] MEDS: ACETAMINOPHEN 325 MG TAB PO PRN (02:45)
[2019-07-25] MEDS: INSULIN ASPART 100 UNITS/ML 3 ML PEN SC SCH ×5 (02:53→20:54)
[2019-07-25] MEDS: FUROSEMIDE 40 MG in SYRINGE 0 ML IV SCH ×2 (06:01→14:19)
[2019-07-25 06:53] LABS: Base Excess ABG 6.2 mEq/L (-9-1.8); HCO3 ABG 31 mmol/L (19-24); Oxygen Saturation ABG 95.6 % (90-95); PCO2 ABG 45 mmHg (35-46); PO2 ABG 76 mm/Hg (80-95); pH ABG 7.46 (7.35-7.45)
[2019-07-25 06:55] LABS: Allen Test Pos (Pos)
[2019-07-25 07:12] LABS: Basophils # (auto) 0.04 K/uL (0-0.2); Basophils % (auto) 0.4 %; Eosinophils # (auto) 0.19 K/uL (0-0.5); Eosinophils % (auto) 2.1 %; Hematocrit (blood only) 46.2 % (42-52); Hemoglobin 15.2 g/dL (14.0-18.0); Immature Granulocytes # (auto) 0.08 K/uL (0.00-0.02); Immature Granulocytes % (auto) 0.9 %; Lymphocytes # (auto) 2.34 K/uL (1.2-3.4); Lymphocytes % (auto) 25.3 %; Mean Corpuscular Hemoglobin 30.2 pg (25-34); Mean Corpuscular Hgb Conc 32.9 g/dL (32-36); Mean Corpuscular Volume 91.7 fL (80-100); Monocytes # (auto) 1.11 K/uL (0.11-0.59); Neutrophils # (auto) 5.48 K/uL (1.4-6.5); Neutrophils % (auto) 59.3 %; Platelet Count 181 K/uL (130-400); RDW Coefficient of Variation 14.8 % (11.5-14.5); RDW Standard Deviation 49.7 fL (36.4-46.3); Red Blood Count 5.04 M/uL (4.7-6.1); White Blood Count 9.24 K/uL (4.8-10.8)
[2019-07-25 07:52] LABS: BUN Creatinine Ratio 24.4 (10-20); Calcium 8.6 mg/dl (8.5-10.1); Creatinine Clr Calc Pharmacy 49.4 ml/min; Est GFR (African American) 46.7; Est GFR (Non-African American) 40.3; Phosphorus 3.8 mg/dl (2.5-4.9)
[2019-07-25] MEDS: CARVEDILOL 12.5 MG TAB PO SCH ×2 (08:10→20:51)
[2019-07-25] MEDS: SACUBITRIL-VALSARTAN 49/51 MG TAB PO SCH (08:11)
[2019-07-25] MEDS: AMIODARONE 200 MG TAB PO SCH (08:11)
[2019-07-25] MEDS: HEPARIN SOD 5,000 UNIT/0.5 ML VIAL SQ SCH ×2 (08:13→20:52)
[2019-07-25] MEDS: MEXILETINE HCL PO SCH ×2 (08:14→20:53)
[2019-07-25] MEDS: FLUTICASONE PROPIONATE NA SPR 16 GM BTL NAE SCH (08:14)
[2019-07-25] MEDS: INSULIN GLARGINE SOLOSTAR 100 UNITS/ML 3 ML PEN SC SCH ×2 (08:15→20:53)
[2019-07-25] MEDS: ASPIRIN 81 MG CHEW PO SCH (08:28)
[2019-07-25 08:49] LABS: Potassium 3.8 mmol/L (3.5-5.1)
[2019-07-25 08:51] LABS: Magnesium 2.5 mg/dl (1.8-2.4)
[2019-07-25] MEDS: ISOSORBIDE MONO EXTENDED REL 30 MG TABCR PO SCH (09:24)
[2019-07-25] MEDS: CHOLECALCIFEROL 1,000 UNITS TAB PO SCH (09:24)
--- NOTE | 2019-07-25 09:47 | Cardiology Progress Note ---
Date of Service July 25, 2019 Assessment & Plan (1) Acute on chronic systolic CHF (congestive heart failure): Suspect the patient's decompensation was related to dietary indiscretion with salt, and noncompliance with medications. Greatly improved with intravenous diuretics. Tolerating carvedilol without difficulty. Would stagger Entresto by restarting his usual once daily dosing at approximately noon today. (2) Ischemic cardiomyopathy: (3) Presence of combination internal cardiac defibrillator (ICD) and pacemaker: [employer] biventricular ICD placed in July 2017. (4) Hypertension: Continues to demonstrate relative hypotension on his current regimen. (5) Hypercholesterolemia: Would consider addition of a toward a statin or rosuvastatin. Subjective The patient is resting comfortably in bed without complaints of chest pain or dyspnea. Feels that he is nearly back to his usual baseline. Physical Exam Physical Exam: In general is well-developed well-nourished white male no acute distress. HEENT exam is negative. Neck is supple with full carotid upstrokes. No carotid bruits. Jugular venous pressure is flat at 90 degrees. No thyromegaly. Cardiovascular exam reveals regular rhythm with distant heart sounds. No obvious murmurs. No S3. Chest reveals a palpable device in the left subclavicular region. Lungs are clear without rales, rhonchi or wheezes. Abdomen is obese without bruits. Extremities reveal intact radial artery pulses bilaterally. There is no peripheral edema. Results & Data Vital Signs (Past 12 Hours) Vital Signs Temp Pulse Pulse Resp BP Pulse Ox 07/25/19 07:42 36.5 C 70 20 108/74 96 07/25/19 07:19 70 07/25/19 03:55 36.5 C 64 20 106/72 96 07/25/19 03:08 92 07/25/19 00:51 94 07/25/19 00:04 64 16 97 07/25/19 00:00 61 91 07/24/19 23:55 95 07/24/19 23:50 20 100 07/24/19 23:45 64 16 94 Laboratory Results CBC notes hemoglobin 15.2, crit 46.2, white count 9.24, and platelet count [id number]. Electrolytes note a sodium of 139, potassium 3.8, chloride 101, bicarb 32, BUN 42, creatinine 1.74, glucose of 102. Diagnostic Findings satellite project site monitor is benign. PG Care Time/CCT Total # of Minutes Spent Total Time Spent with Patient: Total time spent is greater than 50% in coordination of care (as documented) at patient's floor/unit and/or counseling patient:
[2019-07-25] MEDS ORDERED: SACUBITRIL-VALSARTAN 49/51 MG TAB PO SCH (13:00)
--- NOTE | 2019-07-25 16:36 | Hospitalist Progress Note ---
Date of Service July 25, 2019 Assessment & Plan (1) Acute on chronic systolic CHF (congestive heart failure): likely due to inability to follow fluid restriction or salt restriction will continue on Lasix 40mg IV q8, responding well, Cr holding change back to Bumex PO in the morning negative 9500cc on balance, weight trending down Cr stable at 1.7 echo with EF of 20%, global hypokinesis consult Dr. Hagan for recommendations discussed with Monique Hi, CHF clinic will follow him after discharge next week resume Coreg started back on Entresto once a day, dose this afternoon (2) Acute respiratory failure: due to acute heart failure no evidence of pneumonia does have long standing COPD, no wheezing or other signs of exacerbation back to baseline, room air during the day and wears oxygen at night as needed (3) Hypertension: BP always runs low normal monitor while on Coreg and Entresto (4) Coronary artery disease: no chest pain troponin was not checked here continue aspirin, coreg, imdur he was evaluated for CABG in the past but not a candidate (5) Stage III chronic kidney disease: Cr between 1.6 and 1.8 during admission, stable, 1.7 today will continue to watch closely with diuresis (6) Atrial fibrillation with RVR: Continue Coreg, amiodarone. Patient also takes mexiletine at home, obtained a three day supply from [place] (7) Obstructive sleep apnea of adult: CPAP at night when off BIPAP and stable Subjective patient breathing much better today, feels like he is at his baseline eating well no cough, no chest pain, no edema discussed with Dr. Hagan, he would like the patient to resume Coreg and start on Entresto again patient will try Entresto once a day plan for d/c tomorrow reviewed labs, Cr is stable despite aggressive diuresis Review of Systems Review of Systems: All systems reviewed & are unremarkable except as noted in HPI & below Physical Exam Constitutional: WD/WN, vitals as above Eyes: PERRL, conjunctivae normal, anicteric sclerae ENMT: external ear and nose normal, oropharynx normal Neck: trachea midline, no thyromegaly Respiratory: normal respiratory effort; no respiratory distress Auscultation: no rhonchi and no wheezes Cardiovascular: Rate/Rhythm: regular rate and regular rhythm Heart Sounds: normal S1 and normal S2; no murmur Vessels: no JVD Extremities: normal ca pillary refill; no edema Gastrointestinal (Abdomen): normal bowel sounds, soft, nontender, no hepatosplenomegaly Musculoskeletal: no cyanosis or clubbing, extremities motor strength 5/5 Skin: no rashes, warm and dry Neurologic: patellar DTR's 2+ bilat, sensation intact and PERRL, EOMI, accommodation nl, no face palsy, no dysarthria Psychiatric: A+Ox3, euthymic affect Lymphatic: no cervical or axillary lymphadenopathy Results & Data Vital Signs (Past 12 Hours) Vital Signs Temp Pulse Pulse Resp BP Pulse Ox 07/25/19 11:36 36.5 C 76 20 110/70 96 07/25/19 07:42 36.5 C 70 20 108/74 96 07/25/19 07:19 70 Laboratory Results Laboratory Results - last 24 hr 07/24/19 07/24/19 07/24/19 20:04 21:18 23:43 WBC RBC Hgb Hct MCV MCH MCHC RDW Std Deviation RDW Coeff of Tristan Plt Count MPV Immature Gran % (Auto) Neut % (Auto) Lymph % (Auto) Wilkes % (Auto) Eos % (Auto) Baso % (Auto) Immature Gran # (Auto) Neut # (Auto) Lymph # (Auto) Wilkes # (Auto) Eos # (Auto) Baso # (Auto) ABG pH ABG pCO2 ABG pO2 ABG HCO3 ABG O2 Saturation ABG Base Excess Maykel Test Barometric Pressure Oxygen Given Sodium Potassium Chloride Carbon Dioxide Anion Gap BUN Creatinine Est Cr Clr Drug Dosing Est GFR ( Amer) Est GFR (Non-Af Amer) BUN/Creatinine Ratio Glucose POC Glucose 121 H 104 H 199 H Calcium Phosphorus Magnesium 07/25/19 07/25/19 07/25/19 02:52 06:20 06:20 WBC 9.24 RBC 5.04 Hgb 15.2 Hct 46.2 MCV 91.7 MCH 30.2 MCHC 32.9 RDW Std Deviation 49.7 H RDW Coeff of Tristan 14.8 H Plt Count 181 MPV 11.0 H Immature Gran % (Auto) 0.9 Neut % (Auto) 59.3 Lymph % (Auto) 25.3 Wilkes % (Auto) 12.0 Eos % (Auto) 2.1 Baso % (Auto) 0.4 Immature Gran # (Auto) 0.08 H Neut # (Auto) 5.48 Lymph # (Auto) 2.34 Wilkes # (Auto) 1.11 H Eos # (Auto) 0.19 Baso # (Auto) 0.04 ABG pH ABG pCO2 ABG pO2 ABG HCO3 ABG O2 Saturation ABG Base Excess Maykel Test Barometric Pressure Oxygen Given Sodium 139 Potassium Chloride 101 Carbon Dioxide 32 Anion Gap 6.0 BUN 42 H Creatinine 1.74 H Est Cr Clr Drug Dosing 49.4 Est GFR ( Amer) 46.7 Est GFR (Non-Af Amer) 40.3 BUN/Creatinine Ratio 24.4 H Glucose 102 H POC Glucose 168 H Calcium 8.6 Phosphorus 3.8 Magnesium 07/25/19 07/25/19 07/25/19 06:43 07:29 08:06 WBC RBC Hgb Hct MCV MCH MCHC RDW Std Deviation RDW Coeff of Tristan Plt Count MPV Immature Gran % (Auto) Neut % (Auto) Lymph % (Auto) Wilkes % (Auto) Eos % (Auto) Baso % (Auto) Immature Gran # (Auto) Neut # (Auto) Lymph # (Auto) Wilkes # (Auto) Eos # (Auto) Baso # (Auto) ABG pH 7.46 H ABG pCO2 45 ABG pO2 76 L ABG HCO3 31 H ABG O2 Saturation 95.6 H ABG Base Excess 6.2 H Maykel Test Pos Barometric Pressure 731.6 Oxygen Given 1L Sodium Potassium 3.8 Chloride Carbon Dioxide Anion Gap BUN Creatinine Est Cr Clr Drug Dosing Est GFR ( Amer) Est GFR (Non-Af Amer) BUN/Creatinine Ratio Glucose POC Glucose 118 H Calcium Phosphorus Magnesium 2.5 H 07/25/19 11:42 WBC RBC Hgb Hct MCV MCH MCHC RDW Std Deviation RDW Coeff of Tristan Plt Count MPV Immature Gran % (Auto) Neut % (Auto) Lymph % (Auto) Wilkes % (Auto) Eos % (Auto) Baso % (Auto) Immature Gran # (Auto) Neut # (Auto) Lymph # (Auto) Wilkes # (Auto) Eos # (Auto) Baso # (Auto) ABG pH ABG pCO2 ABG pO2 ABG HCO3 ABG O2 Saturation ABG Base Excess Maykel Test Barometric Pressure Oxygen Given Sodium Potassium Chloride Carbon Dioxide Anion Gap BUN Creatinine Est Cr Clr Drug Dosing Est GFR ( Amer) Est GFR (Non-Af Amer) BUN/Creatinine Ratio Glucose POC Glucose 131 H Calcium Phosphorus Magnesium Medications Administered Current Inpatient Medications Acetaminophen (Tylenol) 650 mg PO Q4H PRN PRN Reason: Pain or Fever Stop: 08/21/19 15:00 Last Admin: 07/25/19 02:45 Dose: 650 mg Documented by: Albuterol (Ventolin Hfa) 2 puffs INH QID PRN PRN Reason: Wheezing Stop: 08/21/19 15:00 Albuterol (Duoneb) 3 ml NEB Q2R PRN PRN Reason: Dyspnea Stop: 08/22/19 16:01 Last Admin: 07/24/19 23:45 Dose: 3 ml Documented by: Amiodarone HCl (Cordarone) 200 mg PO DAILY [facility] Stop: 08/23/19 08:59 Last Admin: 07/25/19 08:11 Dose: 200 mg Documented by: Aspirin (Aspirin Chew) 81 mg PO DAILY [facility] Stop: 08/22/19 08:59 Last Admin: 07/25/19 08:28 Dose: 81 mg Documented by: Bumetanide (Bumex) 2 mg PO QAM [facility] Stop: 08/25/19 08:59 Carvedilol (Coreg) 37.5 mg PO BID [facility] Stop: 08/22/19 20:59 Last Admin: 07/25/19 08:10 Dose: 37.5 mg Documented by: Dextrose (Dextrose 50%) 25 - 50 ml IV UD PRN; Protocol PRN Reason: Hypoglycemia Protocol Stop: 08/21/19 17:15 Fluticasone Propionate (Flonase) 2 sprays GLADIS DAILY [facility] Stop: 08/22/19 08:59 Last Admin: 07/25/19 08:14 Dose: 2 sprays Documented by: Glucagon (Glucagen) 1 mg SQ UD PRN; Protocol PRN Reason: Hypoglycemia Protocol Stop: 08/21/19 17:15 Glucose (Glucose 40%) 15 - 30 gm PO UD PRN; Protocol PRN Reason: Hypoglycemia Protocol Stop: 08/21/19 17:15 Glucose (Dex4 Glucose) 4 - 8 tabs PO UD PRN; Protocol PRN Reason: Hypoglycemia Protocol Stop: 08/21/19 17:15 Heparin Sodium (Porcine) (Heparin Sodium (Porcine)) 5,000 units SQ Q12 [facility] Stop: 08/21/19 20:59 Last Admin: 07/25/19 08:13 Dose: 5,000 units Documented by: Hydralazine HCl (Hydralazine Hcl) 10 mg IV Q4H PRN PRN Reason: Blood Pressure - High Stop: 08/21/19 15:11 Furosemide 40 mg/ Syringe 4 mls @ 4 mls/min IV Q8 [facility] Stop: 07/25/19 20:00 Last Admin: 07/25/19 14:19 Dose: 4 mls/min Documented by: Insulin Aspart (Novolog Flexpen) 0 units SC ACHS [facility] Stop: 08/23/19 07:29 Last Admin: 07/25/19 12:25 Dose: 13 units Documented by: Insulin Glargine (Lantus Solostar Pen) 0 units SC Q12H [facility]; Protocol Stop: 08/22/19 20:59 Last Admin: 07/25/19 08:15 Dose: 20 units Documented by: Isosorbide Mononitrate (Imdur Extended Rel) 30 mg PO QAM [facility] Stop: 08/23/19 08:59 Last Admin: 07/25/19 09:24 Dose: 30 mg Documented by: Lorazepam (Ativan) 0.5 mg PO Q6H PRN PRN Reason: anxiety Stop: 08/21/19 15:00 Mexiletine HCl (Mexiletine Hcl) 1 ea PO BID [facility] Stop: 08/21/19 20:59 Last Admin: 07/25/19 08:14 Dose: 1 ea Documented by: Miscellaneous (Carbohydrates For Hypoglycemia) 15 - 30 gm PO UD PRN PRN Reason: Hypoglycemia Treatment Stop: 08/21/19 17:15 Miscellaneous Information (Consult Glycemic Management Pharmacy) 1 ea N/A UD PRN; Protocol PRN Reason: Consult Stop: 08/21/19 17:59 Nitroglycerin (Nitrostat) 0.4 mg SL Q5M PRN PRN Reason: Chest Pain Stop: 08/21/19 15:00 Last Admin: 07/23/19 14:42 Dose: 0.4 mg Documented by: Polyethylene Glycol (Miralax Powder Packet) 17 gm PO DAILY PRN PRN Reason: Constipation Stop: 08/21/19 15:00 Sacubitril/Valsartan (Entresto 49/51mg) 1 tab PO DAILY@1300 [facility] Stop: 08/24/19 12:59 Last Admin: 07/25/19 12:27 Dose: 1 tab Documented by: Tramadol HCl (Ultram) 50 mg PO Q4H PRN PRN Reason: Pain Stop: 08/21/19 23:53 Last Admin: 07/24/19 23:38 Dose: 50 mg Documented by: Vitamin D (Vitamin D3) 1,000 units PO DAILY [facility] Stop: 08/22/19 08:59 Last Admin: 07/25/19 09:24 Dose: 1,000 units Documented by: Zolpidem Tartrate (Ambien) 5 mg PO HS PRN PRN Reason: Sleep Stop: 08/21/19 15:00 PG Care Time/CCT Total # of Minutes Spent Total Time Spent with Patient: Total time spent is greater than 50% in coordination of care (as documented) at patient's floor/unit and/or counseling patient:
[2019-07-25] MEDS: TRAMADOL HCL 50 MG TABLET PO PRN (22:35)
[2019-07-26] MEDS: TRAMADOL HCL 50 MG TABLET PO PRN (03:29)
[2019-07-26] MEDS: CARVEDILOL 12.5 MG TAB PO SCH (08:07)
[2019-07-26] MEDS: CHOLECALCIFEROL 1,000 UNITS TAB PO SCH (08:07)
[2019-07-26] MEDS: AMIODARONE 200 MG TAB PO SCH (08:08)
[2019-07-26] MEDS: ISOSORBIDE MONO EXTENDED REL 30 MG TABCR PO SCH (08:09)
[2019-07-26] MEDS: HEPARIN SOD 5,000 UNIT/0.5 ML VIAL SQ SCH (08:09)
[2019-07-26] MEDS: INSULIN GLARGINE SOLOSTAR 100 UNITS/ML 3 ML PEN SC SCH (08:09)
[2019-07-26] MEDS: FLUTICASONE PROPIONATE NA SPR 16 GM BTL NAE SCH (08:09)
[2019-07-26] MEDS: INSULIN ASPART 100 UNITS/ML 3 ML PEN SC SCH (08:10)
[2019-07-26] MEDS: MEXILETINE HCL PO SCH (08:12)
[2019-07-26] MEDS: ASPIRIN 81 MG CHEW PO SCH (08:21)
[2019-07-26] MEDS ORDERED: BUMETANIDE 1 MG TAB PO SCH (09:00)
--- NOTE | 2019-07-28 22:23 | Discharge Summary ---
Date of Service July 26, 2019 Admission HPI Per Admitting Provider , calcium 9.6 phosphorus 3Patient is a 63 years old male with past medical history of coronary artery disease, cardiomyopathy with pacemaker, hypertension, congestive heart failure, COPD, diabetes mellitus type 2, obstructive sleep apnea, chronic stage kidney disease stage III, arrived via [facility] from [place] ER to the ICU [facility] due to acute respiratory failure with respiratory acidosis and hypercapnia and acute exacerbation of CHF. While in [place] patient refused intubation and he was placed on bicarb drip which was discontinued prior to transportation. Once with an arrived to the ICU [facility] he was tolerating BiPAP and his pH was corrected. Patient denies fever chills headache chest pain syncope near syncope dizziness, palpitation abdominal pain, nausea vomiting, diarrhea hemoptysis hematuria dysuria melena. Labs are reviewed: Viable cell count 10.39 hemoglobin 15.1 hematocrit 45 platelets 167, PT 11.4, INR 1.1 APTT 24.5, sodium 139, potassium 4.8 anion gap 7 BUN 27 creati nine 1.83, phosphorus 3 AST 24, ALT 40, alkaline phosphatase 50, troponin 0 0.015 BNP 3914 albumin 3.4 globulin 3.6 procalcitonin 0.09. Chest x-ray shows right greater than left perihilar interstitial thickening with a right basilar hazy airspace opacity. This favors asymmetric pulmonary edema. A superimposed right lower lobe pneumonia cannot be excluded. EKG shows AV dual paced rhythm. Idioventricular placement detected. Principal Diagnosis Acute on chronic systolic heart failure Discharge Exam Constitutional WD/WN, vitals as above Eyes PERRL, conjunctivae normal, anicteric sclerae ENMT external ear and nose normal, oropharynx normal Neck trachea midline, no thyromegaly Respiratory normal respiratory effort; no respiratory distress Auscultation: no rhonchi and no wheezes Cardiovascular Rate/Rhythm: regular rate and regular rhythm Heart Sounds: normal S1 and normal S2; no murmur Vessels: no JVD Extremities: normal capillary refill; no edema Gastrointestinal (Abdomen) normal bowel sounds, soft, nontender, no hepatosplenomegaly Musculoskeletal no cyanosis or clubbing, extremities motor strength 5/5 Skin no rashes, warm and dry Neurologic patellar DTR's 2+ bilat, sensation intact and PERRL, EOMI, accommodation nl, no face palsy, no dysarthria Psychiatric A+Ox3, euthymic affect Lymphatic no cervical or axillary lymphadenopathy Discharge Data Allergies Allergy/AdvReac Type Severity Reaction Status Date / Time budesonide Allergy Unknown TACHYCARDIA, Verified 07/28/17 07:23 SOB carbamazepine Allergy Unknown TACHYCARDIA, Verified 07/28/17 07:23 PANIC ATTACK cyclobenzaprine Allergy Unknown UNK Verified 07/28/17 07:23 doxycycline Allergy Unknown ABD PAIN Verified 07/28/17 07:23 fluticasone Allergy Unknown UNK Verified 07/28/17 07:23 formoterol Allergy Unknown TACHYCARDIA, Verified 07/28/17 07:23 SOB salmeterol Allergy Unknown ANAPHYLAXIS Verified 07/28/17 07:23 morphine Allergy Unknown Verified 07/22/19 15:12 tiotropium Allergy Unknown Verified 07/22/19 15:12 [From [facility]ir[facility] with HandiHaler] digoxin AdvReac Unknown BACK AND Verified 07/28/17 07:23 STOMACH PAIN metformin AdvReac Unknown MUSCLE Verified 07/28/17 07:23 ACHES IN BVACK AND KIDNEYS Sodium Propionate Allergy Unknown SHORTNESS Uncoded 07/28/17 07:23 OF BREATH Consultations 07/22/19 15:01 Consult Life Educator Routine 07/22/19 15:03 Consult Case Management - Discharge Planning Routine 07/23/19 12:37 Consult Cardiology Routine Hospital Course (1) Acute on chronic systolic CHF (congestive heart failure): likely due to inability to follow fluid restriction or salt restriction treated with Lasix 40mg IV q8, responded well, Cr holding change back to Bumex PO 1mg PO BID on discharge negative 11,000cc on balance, weight down significantly Cr stable at 1.7 echo with EF of 20%, global hypokinesis consult Dr. Hagan for recommendations discussed with Monique Hi, CHF clinic will follow him after discharge next week continue Coreg 37.5mg BID started back on Entresto, will take in the afternoon to try to improve compliance and prevent him from feeling weak and dizzy started in hospital and tolerating well (2) Acute respiratory failure: due to acute heart failure no evidence of pneumonia does have long standing COPD, no wheezing or other signs of exacerbation back to baseline, room air during the day and wears oxygen at night as needed (3) Hypertension: BP always runs low normal monitor while on Coreg and Entresto (4) Coronary artery disease: no chest pain troponin was not checked here continue aspirin, coreg, imdur he was evaluated for CABG in the past but not a candidate (5) Stage III chronic kidney disease: Cr between 1.6 and 1.8 during admission, stable, 1.7 will continue to watch closely with diuresis (6) Atrial fibrillation with RVR: Continue Coreg, amiodarone. Patient also takes mexiletine at home, obtained a three day supply from [place] (7) Obstructive sleep apnea of adult: CPAP at night when off BIPAP and stable Total Time Total Time Spent Total Time Spent (In Minutes): 34 minutes Total Time Includes: Examination of the Patient, Discharge Planning, Medication Reconciliation and Communication With Other Providers (cardiology) Discharge Plan Discharge Items Patient Disposition: Home - Self-Care Reason For Visit: RESPIRATORY FAILURE Condition on Discharge: Good Activity: Resume your previous activity Non-emergency contact: Primary Care Provider and Materials Management Clerk Follow-up/Referrals: Roselia Flores CRNP [Primary Care Provider] - Monique Hi PA-C [Physician Type Proof Reproducer] - 08/04/19 10:30 am (Congestive Heart Failure Program Appointment Information Early follow up is essential to managing your heart failure. An appointment has been scheduled for you with the [facility] Heart Failure Program within 7 days of discharge. Anticipate this visit to be 30-60 minutes long. Please expect a property caretaker phone call from one of our nurses approximately 48 hours from discharge. They will also be placing an order for lab work to be completed 1-2 days prior to your heart failure follow up appointment. Please be sure to have this done so we can go over the results when you come in. Office Location The cardiology office building is located in front of the hospital at [address]. Bring the following with you to your follow-up doctor appointments: Please bring your daily weight log any discharge paperwork all of your medication bottles with you to this visit. ) Fluids: 1800ml (7 cups) Addtl Skid Road Worker Provider Instructions: Medications: BUMEX: 2mg every morning ENTRESTO: take 1 tablet every day around noon Acute on chronic systolic heart failure causing acute respiratory failure resolved at this time, you are negative 11 liters of fluid, weight is down 6kg (13-14 pounds) you should step on a scale when you get home and write down your weight, use this as baseline weight step on scale EVERY morning after you urinate and prior to breakfast if weight goes up by 2-3 lbs then you should call heart failure clinic for di rections, likely take extra dose of Bumex that day you need to follow fluid and salt restriction keep daily sodium intake less than 2gm, read food labels to see how much sodium is in food, never add salt keep daily fluid intake less than 1800mL, or 60 fluid ounces keep follow up appointment with heart failure clinic please call for an appointment with Roselia Flores in one week Call your Primary Care doctor if any of the following symptoms or problems start or get worse: * Shortness of breath or difficulty breathing * Wake up at night short of breath * Chest pain * Cough * Swelling of your hands, feet, or legs * More fatigued or tired with your normal activity * Palpitations - sudden fast heart beats WEIGHT * Weigh yourself every morning after using the bathroom. * Use the same scale. * Wear the same amount of clothing. * Write your weight down on a chart. * Call your Primary Care doctor if you gain more than 2-3 pounds in 1-2 days. MEDICATIONS * Use this discharge instruction sheet for medication instructions. * Take your medications at the time your doctor ordered. * Do not skip a dose of your medicines. * If you miss a dose of medicine, take it as soon as possible, but DO NOT DOUBLE A DOSE. * Read your medicine information when you get home. * Know all of the side effects of your medicine. If in doubt, ask your pharmacist * Call your Primary Care doctor's office if you have any side effects. * Be sure all of your doctors know what medicine and herbs you take (including cold, flu, and herbal medicine). Take the following with you to your follow-up doctor appointments: * Weight Chart * Medication List * List of questions Do not drink excessive alcohol, beer or wine. Stand-Alone Forms: My [facility] [employer] Medications and DC Order Prescriptions: Continued glimepiride 2 mg tablet 2 mg PO DAILY RF: 0 cholecalciferol (vitamin D3) 1,000 unit (25 mcg) Tablet 1,000 unit PO DAILY RF: 0 isosorbide mononitrate 30 mg tablet extended release 24 hr 30 mg PO QAM RF: 0 clotrimazole-betamethasone 1-0.05 % cream 1 applic topical BID RF: 0 fluticasone propionate 50 mcg/actuation [place],Suspension 1 spray intranasal DAILY RF: 0 tramadol 50 mg tablet 50 mg PO Q4H PRN (Reason: Pain) RF: 0 amiodarone 200 mg tablet 200 mg PO DAILY RF: 0 carvedilol 12.5 mg tablet 37.5 mg PO BID RF: 0 ipratropium-albuterol 0.5 mg-3 mg(2.5 mg base)/3 mL solution for nebulization 3 ml inhalation QID RF: 0 mexiletine 150 mg capsule 150 mg PO BID RF: 0 nitroglycerin 0.4 mg tablet, sublingual 0.4 mg sublingual Q5M PRN (Reason: Chest Pain) RF: 0 coenzyme Q10 100 mg Capsule 100 mg PO DAILY RF: 0 Oxygen Home Liters Per Minute RF: 0 aspirin [Ecotrin Low Strength] 81 mg Tablet,Delayed Release (Dr/Ec) 81 mg PO DAILY RF: 0 albuterol sulfate [Ventolin HFA] 90 mcg/actuation Hfa Aerosol Inhaler 2 puff INHALATION QID PRN (Reason: Wheezing) RF: 0 Changed bumetanide 1 mg tablet 2 mg PO DAILY 30 Days Qty: 60 RF: 0 Discontinued Entresto 49-51 mg tablet 1 tab PO QAM RF: 0 No Action oxycodone-acetaminophen 5-325 mg tablet 1 tab PO Q12 Qty: 28 RF: 0 Entresto 49-51 mg tablet 1 tab PO DAILY@1200 30 Days Qty: 30 RF: 0 Discharge Orders: Discharge Order (Routine); Ordered 07/26/19 Ordered By: Apolinar López Admission Data Admit Date/Time: 07/22/19 14:39 Attending Provider: Apolinar López Admit Provider: Neto Carlson Primary Care Provider: Roselia Flores Other Providers: Tito Hutchins ; Francois Hagan Other Interventions: Discharge Summary Assessment (RN) Last Done: 07/26/19 09:31 DC Date/Time DO NOT enter until pt leaves facility: 07/26/19 11:15
== END 2019-07-26 11:15 | disposition home or self-care (01) | DRG 291 ==
LOC: 1E 14:39 → SUATTDRO 14:39 → 2W 07-23 12:29
DX: Z83.3 Family history of diabetes mellitus; Z82.49 Family history of ischemic heart disease and other diseases of the circulatory system; G47.33 Obstructive sleep apnea (adult) (pediatric); N18.3 Chronic kidney disease, stage 3 (moderate); I42.9 Cardiomyopathy, unspecified; I25.10 Atherosclerotic heart disease of native coronary artery without angina pectoris; I48.91 Unspecified atrial fibrillation; Z91.19 Patient's noncompliance with other medical treatment and regimen; E11.22 Type 2 diabetes mellitus with diabetic chronic kidney disease; I25.5 Ischemic cardiomyopathy; I50.23 Acute on chronic systolic (congestive) heart failure; N17.9 Acute kidney failure, unspecified; E87.2 Acidosis; Z88.8 Allergy status to other drugs, medicaments and biological substances; J44.9 Chronic obstructive pulmonary disease, unspecified; I13.0 Hypertensive heart and chronic kidney disease with heart failure and stage 1 through stage 4 chronic kidney disease, or unspecified chronic kidney disease; Z91.11 Patient's noncompliance with dietary regimen; Z99.81 Dependence on supplemental oxygen; Z88.5 Allergy status to narcotic agent; Z79.82 Long term (current) use of aspirin; Z87.891 Personal history of nicotine dependence; Z95.0 Presence of cardiac pacemaker

== ENCOUNTER 2020-01-16 11:16 | Inpatient (IN) ==
--- NOTE | 2020-01-16 12:42 | History & Physical Report ---
Date of Service January 16, 2020 Assessment & Plan (1) Acute exacerbation of CHF (congestive heart failure): Admit to ICU. Vital signs every 4 hours as per ICU. Continue BiPAP. Dialysis pending. Chest x-rays result pending. Labs pending. Strict in and out. Daily weight. Started Bumex drip. Replenish electrolytes specifically potassium. Troponin x3 with EKG. DVT prophylaxis Heparin 5000 units every 8 hours Full code Present on Admission?: Yes (2) End stage renal disease: Consult nephrology. Patient should have hemodialysis today. Monitor electrolytes while patient on Bumex drip. Present on Admission?: Yes (3) Volume overload: As discussed above, management per ICU. Hemodialysis on its way. Present on Admission?: Yes (4) Diabetes mellitus, type 2: Glycemic control per pharmacy. Patient is on oral agents glimepiride at home 2 mg p.o. daily. Hold glimepiride while patient is in the hospital and use sliding scale insulin. Hemoglobin A1c pending. Present on Admission?: Yes (5) Dyslipidemia: Fasting lipid pending. Present on Admission?: Yes (6) Obstructive sleep apnea of adult: Continue BiPAP/CPAP to keep patient comfortable. Present on Admission?: Yes History of Present Illness Chief Complaint: Shortness of breath Primary Care Provider: Camelia Barclay DO The patient is a 64 years old male with past medical history of chronic systolic heart failure, A. fib's, diabetes mellitus type 2, ICD defibrillator, in place COPD, dyslipidemia, hypertension, ischemic cardiomyopathy, end-stage renal disease on hemodialysis, obesity, renal mass transferred from [facility] ER for acute exacerbation of CHF, shortness of breath, volume overload and emergent need for hemodialysis. Patient wears CPAP at home. He uses oxygen as needed. Patient reports that he was not feeling well since yesterday and he finally decided to call paramedics after he woke up this morning. Patient reports having a cough and congestion shortness of breath that are worsening since yesterday. Patient denies fever, chills, chest pain, abdominal pain, hemoptysis, hematuria, dysuria, chest discomfort, syncope near syncope. EKG reviewed: Atrial sensed ventricular paced rhythm with biventricular pacemaker detected. QT interval 458. Labs are still pending. Chest x-ray is pending. Decision was made to admit patient to ICU for further evaluation and treatment of acute exacerbation systolic CHF, volume overload and emergent need for hemodialysis. Allergies Allergy/AdvReac Type Severity Reaction Status Date / Time budesonide Allergy Unknown TACHYCARDIA, Verified 01/15/20 09:15 SOB carbamazepine Allergy Unknown TACHYCARDIA, Verified 01/15/20 09:15 PANIC ATTACK cyclobenzaprine Allergy Unknown UNK Verified 01/15/20 09:15 doxycycline Allergy Unknown ABD PAIN Verified 01/15/20 09:15 fluticasone Allergy Unknown UNK Verified 01/15/20 09:15 formoterol Allergy Unknown TACHYCARDIA, Verified 01/15/20 09:15 SOB salmeterol Allergy Unknown ANAPHYLAXIS Verified 01/15/20 09:15 morphine Allergy Unknown Verified 01/15/20 09:15 tiotropium Allergy Unknown Verified 01/15/20 09:15 [From Spiriva with HandiHaler] digoxin AdvReac Unknown BACK AND Verified 01/15/20 09:15 STOMACH PAIN metformin AdvReac Unknown MUSCLE Verified 01/15/20 09:15 ACHES IN BVACK AND KIDNEYS Sodium Propionate Allergy Unknown SHORTNESS Uncoded 12/03/19 09:55 OF BREATH Home Medications Home Medications Medication Instructions Recorded Confirmed Type albuterol sulfate [Ventolin HFA] 2 puff INHALATION QID PRN 10/01/18 01/15/20 History Oxygen Home 07/22/19 01/15/20 History amiodarone 200 mg PO DAILY 07/22/19 01/15/20 History aspirin [Ecotrin Low Strength] 81 mg PO DAILY 07/22/19 01/15/20 History carvedilol 37.5 mg PO BID 07/22/19 01/15/20 History clotrimazole-betamethasone 1 applic TOPICAL BID 07/22/19 01/15/20 History glimepiride 2 mg PO DAILY 07/22/19 01/15/20 History ipratropium-albuterol 3 ml INHALATION QID 07/22/19 01/15/20 History nitroglycerin 0.4 mg SUBLINGUAL Q5M PRN 07/22/19 01/15/20 History miscellaneous medical supply #1 ea 08/13/19 01/15/20 Rx nebulizer accessories #1 ea 08/13/19 01/15/20 Rx blood sugar diagnostic #10 ea 11/05/19 01/15/20 History bumetanide 1 mg tablet 1 mg PO DAILY #90 tab 11/05/19 01/15/20 Rx cholecalciferol (vitamin D3) 25 2,000 units PO DAILY tab 11/05/19 01/15/20 History mcg (1,000 unit) tablet coenzyme Q10 100 mg capsule 200 mg PO DAILY cap 11/05/19 01/15/20 History fluticasone propionate 50 2 sprays INTRANASAL DAILY ml 11/05/19 01/15/20 History mcg/actuation nasal spray,suspension isosorbide mononitrate 30 mg 30 mg PO QAM #90 tab 11/05/19 01/15/20 Rx tablet,extended release 24 hr mexiletine 150 mg capsule 150 mg PO BID #180 cap 11/05/19 01/15/20 Rx nystatin 100,000 unit/gram topical 1 appln TOP BID #15 gm 11/05/19 01/15/20 Rx cream sacubitril 24 mg-valsartan 26 mg 1 tab PO DAILY@1200 30 Days #30 tab 11/05/19 01/15/20 Rx tablet triamcinolone acetonide 0.1 % 1 appln TOP TID 11/05/19 01/15/20 History topical cream acetaminophen 300 mg-codeine 30 mg 1 tab PO Q8H PRN #60 tab 11/25/19 01/15/20 Rx tablet CPAP Machine #1 ea 12/13/19 01/15/20 Rx CPAP Machine #1 ea 12/15/19 01/15/20 Rx nebulizers #1 ea 12/22/19 01/15/20 Rx Past Med/Surg History Medical History Afib (Chronic) Allergic rhinitis (Acute) Asthma (Acute) Cervical radiculopathy (Acute) Chronic systolic heart failure COPD (chronic obstructive pulmonary disease) Coronary artery disease Degenerative cervical disc Diabetes mellitus, type 2 Dyslipidemia (Chronic) Hepatitis C History of ventricular tachycardia Hypertension (Chronic) Hypoxemia (Acute) ICD (implantable cardioverter-defibrillator) in place Impotence, organic Ischemic cardiomyopathy Nephrolithiasis Obesity Obstructive sleep apnea of adult Peripheral neuropathy Renal mass (Chronic) Stage III chronic kidney disease (Chronic) Vitamin D deficiency (Chronic) Surgical History History of coronary artery stent placement History of implantable cardioverter-defibrillator (ICD) placement Family History Unknown Cardiac disorder Hypertension Diabetes Father Myocardial infarction Mother Myocardial infarction Denies family history of Ovarian cancer Prostate cancer Breast cancer Colorectal cancer Social History Preferred Language: Bel[place]ian Communication Ability: Effective Visual Impairment: No Limitations Hearing Ability: Normal 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 Beliefs That Will Affect Care: None marital status: Current Living Situation: Spouse Current Living Situation Comment: with & son current occupational status: retired Other Information That Helps Us Care for You: No Feels Safe at Home: Yes Safety Concerns: Feels Safe At This Time Smoking Status: Former smoker Tobacco Type: cigarettes ; packs per day: 1.5 ; Second Hand Exposure: No ; Hx Alcohol Use: No Hx Substance Use: No caffeine: No Dental Care, Regularly: No Physical Activity Frequency: 5-6 Times per Week Physical Activity Frequency Comment: walking Seatbelt Use: sometimes Sunscreen Use: No Review of Systems Review of Systems: All systems reviewed & are unremarkable except as noted in HPI & below Physical Exam Constitutional: WD/WN, vitals as above well developed Eyes: PERRL, conjunctivae normal, anicteric sclerae ENMT: external ear and nose normal, oropharynx normal Neck: trachea midline, no thyromegaly Respiratory: + respiratory distress, + labored breathing and + uses accessory muscles Auscultation: + crackles and + wheezes Cardiovascular: Vessels: dorsalis pedis pulses present Extremities: no pedal edema Paced rhythm Gastrointestinal (Abdomen): normal bowel sounds, soft, nontender, no hepatosplenomegaly Musculoskeletal: no cyanosis or clubbing, extremities motor strength 5/5 Skin: no rashes, warm and dry Neurologic: patellar DTR's 2+ bilat, sensation intact Psychiatric: A+Ox3, euthymic affect Lymphatic: no cervical or axillary lymphadenopathy Code Status & VTE Plan Code Status Full code PG Care Time/CCT Total # of Minutes Spent Total Time Spent with Patient: Total time spent is greater than 50% in coordination of care (as documented) at patient's floor/unit and/or counseling patient: Coding Level of Care Code 19145 Initial Inpt Care Lvl 3 Diagnoses Acute exacerbation of CHF (congestive heart failure) I50.9 End stage renal disease N18.6 Volume overload E87.70 Diabetes mellitus, type 2 E11.9 Dyslipidemia E78.5 Obstructive sleep apnea of adult G47.33
[2020-01-16] MEDS ORDERED: INSULIN PROTOCOL GOAL RANGE ONE (13:28)
[2020-01-16] MEDS ORDERED: INSULIN REGULAR 250 UNITS in SODIUM CHLORIDE 0.9% 247.5 ML IV SCH (13:28)
[2020-01-16] MEDS ORDERED: BUMETANIDE 10 MG in DEXTROSE 5% 10 ML IV SCH (13:28)
[2020-01-16] MEDS ORDERED: ICU PROTOCOL FOR HYPERGLYCEMIA PRN (13:28)
[2020-01-16] MEDS ORDERED: MODERATE STRESS LEVEL ONE (13:28)
[2020-01-16] MEDS ORDERED: PNEUMOCOCCAL ADMINISTRATION CHARGE ONE (13:40)
[2020-01-16] MEDS ORDERED: INFLUENZA ADMINISTRATION CHARGE ONE (13:40)
[2020-01-16] MEDS ORDERED: PNEUMOCOCCAL POLYSACCHARIDES 25 MCG/0.5 ML VIAL/SYR IM ONE (13:40)
[2020-01-16] MEDS ORDERED: INFLUENZA VACCINE HIGH DOSE 65+ 0.5 ML SYR IM ONE (13:40)
[2020-01-16] MEDS: BUMETANIDE 10 MG in DEXTROSE 5% 10 ML IV SCH ×2 (13:44→20:23)
--- NOTE | 2020-01-16 14:02 | XRay Report ---
XR chest 1V portable HISTORY: 64 years-old Male lines evaluation of reported lines. COMPARISON: Chest radiograph 07/23/2019 TECHNIQUE: Portable AP view of the chest FINDINGS: Left subclavian pacer/AICD is noted with leads overlying the expected locations of the ventricles and right atrium. The visualized leads appear intact. Telemetry leads are also noted overlying the chest . No additional lines, tubes or catheters are identified. Cardiac silhouette is mildly enlarged. Calc ified plaque of the thoracic aortic arch. Pulmonary vascular congestion. No pneumothorax, large pleur al effusion or airspace consolidation typical for pneumonia. Mild interstitial coarsening. Degenerati ve changes of the shoulders and spine. IMPRESSION: Cardiomegaly and pulmonary vascular congestion with mild interstitial coarsening suggesti ve of pulmonary edema. ACT 112: Negative or not required by law. The above report was generated using voice recognition software. It may contain grammatical, syntax o r spelling errors. Electronically signed by: Rodolfo Elliott M.D. 01/16/2020 2:01 PM
[2020-01-16 14:04] LABS: Base Excess VBG -0.4 mEq/L; Oxygen Saturation VBG 90.1 %; pH VBG 7.44 (7.36-7.41)
[2020-01-16 14:05] LABS: Basophils # (auto) 0.02 K/uL (0-0.2); Basophils % (auto) 0.1 %; Eosinophils # (auto) 0.01 K/uL (0-0.5); Eosinophils % (auto) 0.1 %; Hematocrit (blood only) 50.5 % (42-52); Hemoglobin 16.8 g/dL (14.0-18.0); Immature Granulocytes # (auto) 0.22 K/uL (0.00-0.02); Immature Granulocytes % (auto) 1.3 %; Lymphocytes # (auto) 1.01 K/uL (1.2-3.4); Lymphocytes % (auto) 5.9 %; Mean Corpuscular Hemoglobin 30.6 pg (25-34); Mean Platelet Volume 10.2 fL (7.4-10.4); Monocytes # (auto) 0.71 K/uL (0.11-0.59); Monocytes % (auto) 4.1 %; Neutrophils # (auto) 15.15 K/uL (1.4-6.5); Neutrophils % (auto) 88.5 %; Platelet Count 217 K/uL (130-400); RDW Standard Deviation 47.3 fL (36.4-46.3); Red Blood Count 5.49 M/uL (4.7-6.1); White Blood Count 17.12 K/uL (4.8-10.8)
[2020-01-16 14:19] LABS: INR 1.2 (0.9-1.1); Partial Thromboplastin Time 25.8 Seconds (21.0-31.0); Prothrombin Time 11.9 Seconds (9.0-12.0)
[2020-01-16 14:20] LABS: Mean Corpuscular Hgb Conc 33.3 g/dL (32-36)
[2020-01-16 14:23] LABS: Potassium 4.8 mmol/L (3.5-5.1)
[2020-01-16 14:24] LABS: Albumin Level 3.8 gm/dl (3.4-5.0); BUN Creatinine Ratio 21.2 (10-20); Bilirubin Direct 0.1 mg/dl (0-0.2); Calcium 10.2 mg/dl (8.5-10.1); Creatinine Clr Calc Pharmacy 46.8 ml/min; Est GFR (African American) 45.7; Est GFR (Non-African American) 39.4; Magnesium 2.6 mg/dl (1.8-2.4)
[2020-01-16 14:38] LABS: Bilirubin,Total 0.5 mg/dl (0.2-1); Phosphorus 5.1 mg/dl (2.5-4.9); Total Protein 8.2 gm/dl (6.4-8.2); Troponin I 0.181 ng/ml (0-0.045)
--- NOTE | 2020-01-16 14:55 | Cardiology Consultation ---
Date of Consultation January 16, 2020 Assessment & Plan (1) Acute exacerbation of CHF (congestive heart failure): Mr. Vee is a 64 year old male with a history of Type 2 DM, ESRD on HD, Hypertension, Hypercholesterolemia, Mild Mitral Regurgitation (July 2019), Ventricular Tachycardia (on Amiodarone and Mexiletine), Chronic Stable Angina Pectoris, Chronic Systolic CHF, Ischemic Cardiomyopathy (LVEF 20%-25% July 2019) s/p [employer] Bi-V AICD (Implanted July 2017), and Inoperable Coronary Artery Disease -- who was admitted to [facility] earlier today with an Acute Exacerbation of his Chronic Systolic CHF which is secondary to dietary salt indiscretion +/- intra-articular steroid injection. Recommend the following: -- Continue Bumex drip for the time being. -- Patient will have dialysis today and will benefit by having volume taken off. (cancelled) -- Continue Coreg 37.5 mg b.i.d.. -- Continue Entresto 24-26 mg once daily. -- Patient is comfortable on BiPAP. -- Continue Imdur 30 mg daily. -- Monitor strict I&O's, daily body weights. -- We discussed the importance of a Low Sodium Diet. Present on Admission?: Yes (2) Ischemic cardiomyopathy: Inoperable CAD with chronic stable angina pectoris. -- Patient has not had any angina with his current CHF exacerbation. -- Current LVEF is 20% on Echo 01/16/2020 with moderate MR. -- Continue beta-juanito, ARB, long acting nitrate. -- Continue Aspirin 81 mg daily. -- Initial Troponin I elevated which is likely secondary to CHF exacerbation and ESRD. -- This is NOT an ACS. Agree with canceling serial cardiac enzymes unless he he has symptoms that warrant checking them. Present on Admission?: Yes (3) ICD (implantable cardioverter-defibrillator) in place: [employer] Bi-V AICD: -- Device is pacing from both ventricles the vast majority of the time. -- Last device check completed in September 2019. (4) History of ventricular tachycardia: Quiescent: -- Continue Amiodarone 200 mg daily. -- Continue Mexiletine 150 mg b.i.d.. -- Bi-V AICD in place. Supervising Physician Co-Signing Physician Notes Maik Agee MD I saw and examined the patient and agree with the documentation by Juvenal Bentley PA-C. Briefly, the patient has had progressive dyspnea. This tended to occur over the course of 24 hours. He had some dietary indiscretion recently and a steroid injection. He denied symptoms of chest discomfort and in fact has not taken nitroglycerin and many months. He was not aware of any arrhythmias. He denies symptoms of dizziness or lightheadedness. He has not noticed any increasing edema. He has noticed a weight gain over several months and perhaps a few pounds recently. He denies any very elevated blood pressures recently. Renal function is somewhat compromised but appears stable. In general, the patient has been feeling better this year than last. His exercise tolerance is also improved over that period of time. He clearly has decompensated heart failure. The precipitating factor is unclear but possibly related to the dietary indiscretion noted above. I have not been able to find the senior sas programmer to interrogate his current device, but arrhythmia or reduced biventricular pacing is a possibility. He does appear to be pacing currently. I do not believe he has had significant ischemia despite mild elevation in his cardiac biomarkers. I think the treatment centers around diuresis. He seems to be responding to Bumex infusion. Does not appear that he will require dialysis at this point. He was using CPAP which will improve pulmonary edema as well. He seems to have been very stable on his outpatient medical regimen and can probably be transitioned back to his medical regimen once the acute pulmonary edema has resolved. I will be away from the hospital for the next 2 days. If there are questions or concerns regarding the treatment of this patient, please contact the on-call [facility] physician. History of Present Illness Reason for Consultation: -- Acute on Chronic Systolic CHF. -- Dietary Salt Indiscretion. Requesting Physician: George Acosta DO Attending Physician: Maik Agee MD History of Present Illness Mr. Vee is a 64 year old male with a history of Type 2 DM, ESRD on HD, Hypertension, Hypercholesterolemia, Mild Mitral Regurgitation (July 2019), Ventricular Tachycardia (on Amiodarone and Mexiletine), Chronic Stable Angina Pectoris, Chronic Systolic CHF, Ischemic Cardiomyopathy (LVEF 20%-25% July 2019) s/p [employer] Bi-V AICD (Implanted July 2017), and Inoperable Coronary Artery Disease -- who was admitted to [facility] earlier today with an Acute Exacerbation of his Chronic Systolic CHF. Patient states that he ate ham last weekend although he knew better than to do that. Nonetheless, he thawed a frozen ham and states that he rinsed it off several times to remove the salt -- which didn't work. Patient also received an intra-articular right shoulder steroid injection on Sunday in his right shoulder which likely also promoted fluid retention. Earlier this week -- on Sunday he developed some exertional dyspnea, cough productive of clear sputum, and abdominal bloating. As the week progressed -- his BARRETT progressed, to dyspnea with minimal activities and dyspnea at rest. He denies any significant peripheral edema but he usually doesn't have that with his heart failure. Patient specifically denies any angina pectoris or any chest discomfort during this week. His weight is over his "dry weight" but he states that his weight varies quite a bit. Patient is compliant with his medications and denies any missed doses recently. He denies any discharges from his Bi-V AICD. Patient is currently on a Bumex drip and is feeling significantly less dyspneic since he came into the hospital. Patient is due for dialysis. Allergies Allergy/AdvReac Type Severity Reaction Status Date / Time budesonide Allergy Unknown TACHYCARDIA, Verified 01/15/20 09:15 SOB carbamazepine Allergy Unknown TACHYCARDIA, Verified 01/15/20 09:15 PANIC ATTACK cyclobenzaprine Allergy Unknown UNK Verified 01/15/20 09:15 doxycycline Allergy Unknown ABD PAIN Verified 01/15/20 09:15 fluticasone Allergy Unknown UNK Verified 01/15/20 09:15 formoterol Allergy Unknown TACHYCARDIA, Verified 01/15/20 09:15 SOB salmeterol Allergy Unknown ANAPHYLAXIS Verified 01/15/20 09:15 morphine Allergy Unknown Verified 01/15/20 09:15 tiotropium Allergy Unknown Verified 01/15/20 09:15 [From Spiriva with HandiHaler] digoxin AdvReac Unknown BACK AND Verified 01/15/20 09:15 STOMACH PAIN metformin AdvReac Unknown MUSCLE Verified 01/15/20 09:15 ACHES IN BVACK AND KIDNEYS Sodium Propionate Allergy Unknown SHORTNESS Uncoded 12/03/19 09:55 OF BREATH Home Medications Home Medications Medication Instructions Recorded Confirmed Type albuterol sulfate [Ventolin HFA] 2 puff INHALATION QID PRN 10/01/18 01/15/20 History Oxygen Home 07/22/19 01/15/20 History amiodarone 200 mg PO DAILY 07/22/19 01/15/20 History aspirin [Ecotrin Low Strength] 81 mg PO DAILY 07/22/19 01/15/20 History carvedilol 37.5 mg PO BID 07/22/19 01/15/20 History clotrimazole-betamethasone 1 applic TOPICAL BID 07/22/19 01/15/20 History glimepiride 2 mg PO DAILY 07/22/19 01/15/20 History ipratropium-albuterol 3 ml INHALATION QID 07/22/19 01/15/20 History nitroglycerin 0.4 mg SUBLINGUAL Q5M PRN 07/22/19 01/15/20 History miscellaneous medical supply #1 ea 08/13/19 01/15/20 Rx nebulizer accessories #1 ea 08/13/19 01/15/20 Rx blood sugar diagnostic #10 ea 11/05/19 01/15/20 History bumetanide 1 mg tablet 1 mg PO DAILY #90 tab 11/05/19 01/15/20 Rx cholecalciferol (vitamin D3) 25 2,000 units PO DAILY tab 11/05/19 01/15/20 History mcg (1,000 unit) tablet coenzyme Q10 100 mg capsule 200 mg PO DAILY cap 11/05/19 01/15/20 History fluticasone propionate 50 2 sprays INTRANASAL DAILY ml 11/05/19 01/15/20 History mcg/actuation nasal spray,suspension isosorbide mononitrate 30 mg 30 mg PO QAM #90 tab 11/05/19 01/15/20 Rx tablet,extended release 24 hr mexiletine 150 mg capsule 150 mg PO BID #180 cap 11/05/19 01/15/20 Rx nystatin 100,000 unit/gram topical 1 appln TOP BID #15 gm 11/05/19 01/15/20 Rx cream sacubitril 24 mg-valsartan 26 mg 1 tab PO DAILY@1200 30 Days #30 tab 11/05/19 01/15/20 Rx tablet triamcinolone acetonide 0.1 % 1 appln TOP TID 11/05/19 01/15/20 History topical cream acetaminophen 300 mg-codeine 30 mg 1 tab PO Q8H PRN #60 tab 11/25/19 01/15/20 Rx tablet CPAP Machine #1 ea 12/13/19 01/15/20 Rx CPAP Machine #1 ea 12/15/19 01/15/20 Rx nebulizers #1 ea 12/22/19 01/15/20 Rx Patient History Medical History Afib (Chronic) Allergic rhinitis (Acute) Asthma (Acute) Cervical radiculopathy (Acute) Chronic systolic heart failure COPD (chronic obstructive pulmonary disease) Coronary artery disease Degenerative cervical disc Diabetes mellitus, type 2 Dyslipidemia (Chronic) Hepatitis C History of ventricular tachycardia Hypertension (Chronic) Hypoxemia (Acute) ICD (implantable cardioverter-defibrillator) in place Impotence, organic Ischemic cardiomyopathy Nephrolithiasis Obesity Obstructive sleep apnea of adult Peripheral neuropathy Renal mass (Chronic) Stage III chronic kidney disease (Chronic) Vitamin D deficiency (Chronic) Surgical History History of coronary artery stent placement History of implantable cardioverter-defibrillator (ICD) placement Family History Unknown Cardiac disorder Hypertension Diabetes Father Myocardial infarction Mother Myocardial infarction Denies family history of Ovarian cancer Prostate cancer Breast cancer Colorectal cancer Social History Preferred Language: Macedonian Communication Ability: Effective Visual Impairment: No Limitations Hearing Ability: Normal Stonework Supervisor Required: No Beliefs That Will Affect Care: None marital status: Current Living Situation: Spouse Current Living Situation Comment: with & son current occupational status: retired Other Information That Helps Us Care for You: No Feels Safe at Home: Yes Safety Concerns: Feels Safe At This Time Smoking Status: Former smoker Tobacco Type: cigarettes ; packs per day: 1.5 ; Second Hand Exposure: No ; Hx Alcohol Use: No Hx Substance Use: No caffeine: No Dental Care, Regularly: No Physical Activity Frequency: 5-6 Times per Week Physical Activity Frequency Comment: walking Seatbelt Use: sometimes Sunscreen Use: No Physical Exam Physical Exam: GENERAL: Patient currently on Bi-PAP but is interactive. HEENT: Head is atraumatic, normocephalic. EOM's intact. Facies symmetric. No perioral cyanosis. NECK: No gross JVD. JVP is elevated. Carotid upstrokes are + 2 bilaterally. No bruits are noted. CHEST/LUNGS: Bibasilar crackles. BiPAP in place. CVS: S1 and S2 are regular at 76 bpm without obvious murmurs, gallops, or rubs. PMI is nonpalpable. No lifts, heaves, or thrills. No abdominal aortic or renal bruits.Palpable AICD generator is present in the left subclavian fossa. ABDOMINAL EXAM: Bowel sounds are present. No masses, organomegaly, or tenderness. EXTREMITIES: No clubbing or cyanosis. No edema. Intact radial pulses bilaterally. NEUROLOGIC EXAM: Patient is awake, alert, and oriented. Pleasant and cooperative. Answers questions appropriately. Speech is audible despite BiPAP face mask. TELEMETRY: -- Sinus rhythm with biventricular electronic pacing. HR in 70's to 80's. Results & Data ([facility]) Vital Signs (Past 12 Hours) Vital Signs Temp Pulse Pulse Resp BP Pulse Ox 01/16/20 13:21 36.3 C L 70 18 129/94 94 01/16/20 13:15 70 16 95 Laboratory Results Laboratory Results - last 24 hr 01/16/20 01/16/20 01/16/20 13:21 13:49 13:49 WBC 17.12 H RBC 5.49 Hgb 16.8 Hct 50.5 MCV 92.0 MCH 30.6 MCHC 33.3 RDW Std Deviation 47.3 H RDW Coeff of Tristan 14.0 Plt Count 217 MPV 10.2 Immature Gran % (Auto) 1.3 Neut % (Auto) 88.5 Lymph % (Auto) 5.9 [place]upe % (Auto) 4.1 Eos % (Auto) 0.1 Baso % (Auto) 0.1 Immature Gran # (Auto) 0.22 H Neut # (Auto) 15.15 H Lymph # (Auto) 1.01 L [place] # (Auto) 0.71 H Eos # (Auto) 0.01 Baso # (Auto) 0.02 PT INR APTT PTT Ratio VBG pH VBG pCO2 VBG pO2 VBG HCO3 VBG O2 Saturation VBG Base Excess Barometric Pressure Sodium Potassium Chloride Carbon Dioxide Anion Gap BUN Creatinine Est Cr Clr Drug Dosing Est GFR ( Amer) Est GFR (Non-Af Amer) BUN/Creatinine Ratio Glucose POC Glucose 189 H Lactate Calcium Ionized Calcium Phosphorus Magnesium Total Bilirubin Direct Bilirubin AST ALT Alkaline Phosphatase Troponin I Total Protein Albumin Lipase Blood Type A Positive Antibody Screen NEGATIVE 01/16/20 01/16/20 01/16/20 13:49 13:49 13:49 WBC RBC Hgb Hct MCV MCH MCHC RDW Std Deviation RDW Coeff of Tristan Plt Count MPV Immature Gran % (Auto) Neut % (Auto) Lymph % (Auto) [place] % (Auto) Eos % (Auto) Baso % (Auto) Immature Gran # (Auto) Neut # (Auto) Lymph # (Auto) [place] # (Auto) Eos # (Auto) Baso # (Auto) PT 11.9 INR 1.2 H APTT 25.8 PTT Ratio 1.0 VBG pH VBG pCO2 VBG pO2 VBG HCO3 VBG O2 Saturation VBG Base Excess Barometric Pressure Sodium 138 Potassium 4.8 Chloride 106 Carbon Dioxide 23 Anion Gap 9.0 BUN 37 H Creatinine 1.76 H Est Cr Clr Drug Dosing 46.8 Est GFR ( Amer) 45.7 Est GFR (Non-Af Amer) 39.4 BUN/Creatinine Ratio 21.2 H Glucose 197 H POC Glucose Lactate 2.3 H* Calcium 10.2 H Ionized Calcium Phosphorus 5.1 H Magnesium 2.6 H Total Bilirubin 0.5 Direct Bilirubin 0.1 AST 26 ALT 52 Alkaline Phosphatase 61 Troponin I 0.181 H* Total Protein 8.2 Albumin 3.8 Lipase 114 Blood Type Antibody Screen 01/16/20 01/16/20 01/16/20 13:49 13:49 13:50 WBC RBC Hgb Hct MCV MCH MCHC RDW Std Deviation RDW Coeff of Tristan Plt Count MPV Immature Gran % (Auto) Neut % (Auto) Lymph % (Auto) [place] % (Auto) Eos % (Auto) Baso % (Auto) Immature Gran # (Auto) Neut # (Auto) Lymph # (Auto) [place] # (Auto) Eos # (Auto) Baso # (Auto) PT INR APTT PTT Ratio VBG pH 7.44 H VBG pCO2 35 L VBG pO2 56 VBG HCO3 23 VBG O2 Saturation 90.1 VBG Base Excess -0.4 Barometric Pressure 726.4 Sodium Cancelled Potassium Cancelled Chloride Cancelled Carbon Dioxide Cancelled Anion Gap Cancelled BUN Cancelled Creatinine Cancelled Est Cr Clr Drug Dosing Cancelled Est GFR ( Amer) Cancelled Est GFR (Non-Af Amer) Cancelled BUN/Creatinine Ratio Cancelled Glucose Cancelled POC Glucose Lactate Calcium Cancelled Ionized Calcium 1.22 Phosphorus Magnesium Total Bilirubin Direct Bilirubin AST ALT Alkaline Phosphatase Troponin I Cancelled Total Protein Albumin Lipase Cancelled Blood Type Antibody Screen 01/16/20 15:17 WBC RBC Hgb Hct MCV MCH MCHC RDW Std Deviation RDW Coeff of Tristan Plt Count MPV Immature Gran % (Auto) Neut % (Auto) Lymph % (Auto) [place] % (Auto) Eos % (Auto) Baso % (Auto) Immature Gran # (Auto) Neut # (Auto) Lymph # (Auto) [place] # (Auto) Eos # (Auto) Baso # (Auto) PT INR APTT PTT Ratio VBG pH VBG pCO2 VBG pO2 VBG HCO3 VBG O2 Saturation VBG Base Excess Barometric Pressure Sodium Potassium Chloride Carbon Dioxide Anion Gap BUN Creatinine Est Cr Clr Drug Dosing Est GFR ( Amer) Est GFR (Non-Af Amer) BUN/Creatinine Ratio Glucose POC Glucose 177 H Lactate Calcium Ionized Calcium Phosphorus Magnesium Total Bilirubin Direct Bilirubin AST ALT Alkaline Phosphatase Troponin I Total Protein Albumin Lipase Blood Type Antibody Screen Medications Administered Active Medications Generic Name Dose Route Start Last Admin Trade Name Freq PRN Reason Stop Dose Admin Heparin Sodium (Porcine) 5,000 units 01/16/20 15:00 Heparin Sodium (Porcine) SQ 02/15/20 14:59 Q8 EMMA Bumetanide 10 mg/ Dextrose 50 mls @ 5 mls/hr 01/16/20 13:30 01/16/20 13:44 IV 02/15/20 13:29 5 mls/hr .Q10H EMMA Administration Insulin Human Regular 250 250 mls @ 0 mls/hr 01/16/20 13:28 units/ Sodium Chloride IV 02/15/20 13:27 .Q0M EMMA Protocol Titrate Insulin Aspart 0 units 01/16/20 16:30 Novolog Flexpen SC 02/15/20 16:29 ACHS EMMA Miscellaneous 1 ea 01/16/20 13:28 Icu Protocol For Hyperglycemia N/A 01/18/20 13:27 PRN PRN Hyperglycemia Protocol Protocol Miscellaneous 1 ea 01/16/20 13:28 Insulin Protocol Goal Range N/A 01/16/20 13:29 ONE ONE Miscellaneous 1 01/16/20 13:28 Insulin Protocol Moderate Stress Level N/A 01/16/20 13:29 ONE ONE PG Care Time/CCT Total # of Minutes Spent Total Time Spent with Patient: Total time spent is greater than 50% in coordination of care (as documented) at patient's floor/unit and/or counseling patient: Coding Level of Care Code 70822 Initial Inpt Care Lvl 3 Diagnoses Acute exacerbation of CHF (congestive heart failure) I50.9 Ischemic cardiomyopathy I25.5 ICD (implantable cardioverter-defibrillator) in place Z95.810 History of ventricular tachycardia Z86.79
--- NOTE | 2020-01-16 15:29 | XCELERA ---
[id number] [id number]
[2020-01-16] MEDS ORDERED: GLUCAGON FOR INJ 1 MG VIAL IM PRN (16:30)
[2020-01-16] MEDS ORDERED: INSULIN ASPART 100 UNITS/ML 3 ML PEN SC SCH (16:30)
[2020-01-16] MEDS ORDERED: GLUCOSE 10 TABS/TUBE PO PRN (16:30)
[2020-01-16] MEDS ORDERED: CARBOHYDRATES FOR HYPOGLYCEMIA PO PRN ×2 (16:30→16:36)
[2020-01-16] MEDS ORDERED: GLUCOSE 40% GEL 15 GM TUBE PO PRN (16:30)
[2020-01-16] MEDS ORDERED: DEXTROSE 50% 50 ML SYRINGE IV PRN (16:30)
[2020-01-16] MEDS ORDERED: PHARMACY GLYCEMIC MGMT CONSULT PRN ×2 (16:43→18:20)
[2020-01-16] MEDS: INSULIN ASPART 100 UNITS/ML 3 ML PEN SC SCH ×2 (17:19→21:09)
[2020-01-16] MEDS: HEPARIN SOD 5,000 UNIT/0.5 ML VIAL SQ SCH ×2 (17:22→20:39)
--- NOTE | 2020-01-16 18:05 | Critical Care Consultation ---
Date of Consultation January 16, 2020 History of Present Illness Attending Physician: Neto Carlson MD Allergies Allergy/AdvReac Type Severity Reaction Status Date / Time budesonide Allergy Unknown TACHYCARDIA, Verified 01/15/20 09:15 SOB carbamazepine Allergy Unknown TACHYCARDIA, Verified 01/15/20 09:15 PANIC ATTACK cyclobenzaprine Allergy Unknown UNK Verified 01/15/20 09:15 doxycycline Allergy Unknown ABD PAIN Verified 01/15/20 09:15 fluticasone Allergy Unknown UNK Verified 01/15/20 09:15 formoterol Allergy Unknown TACHYCARDIA, Verified 01/15/20 09:15 SOB salmeterol Allergy Unknown ANAPHYLAXIS Verified 01/15/20 09:15 morphine Allergy Unknown Verified 01/15/20 09:15 tiotropium Allergy Unknown Verified 01/15/20 09:15 [From Spiriva with HandiHaler] digoxin AdvReac Unknown BACK AND Verified 01/15/20 09:15 STOMACH PAIN metformin AdvReac Unknown MUSCLE Verified 01/15/20 09:15 ACHES IN BVACK AND KIDNEYS Sodium Propionate Allergy Unknown SHORTNESS Uncoded 12/03/19 09:55 OF BREATH Home Medications Home Medications Medication Instructions Recorded Confirmed Type albuterol sulfate [Ventolin HFA] 2 puff INHALATION QID PRN 10/01/18 01/15/20 History Oxygen Home 07/22/19 01/15/20 History amiodarone 200 mg PO DAILY 07/22/19 01/16/20 History aspirin [Ecotrin Low Strength] 81 mg PO DAILY 07/22/19 01/16/20 History carvedilol 37.5 mg PO BID 07/22/19 01/16/20 History clotrimazole-betamethasone 1 applic TOPICAL BID 07/22/19 01/15/20 History glimepiride 2 mg PO DAILY 07/22/19 01/16/20 History ipratropium-albuterol 3 ml INHALATION QID 07/22/19 01/15/20 History nitroglycerin 0.4 mg SUBLINGUAL Q5M PRN 07/22/19 01/16/20 History miscellaneous medical supply #1 ea 08/13/19 01/15/20 Rx nebulizer accessories #1 ea 08/13/19 01/15/20 Rx blood sugar diagnostic #10 ea 11/05/19 01/15/20 History bumetanide 1 mg tablet 1 mg PO DAILY #90 tab 11/05/19 01/16/20 Rx cholecalciferol (vitamin D3) 25 2,000 units PO DAILY tab 11/05/19 01/16/20 History mcg (1,000 unit) tablet coenzyme Q10 100 mg capsule 200 mg PO DAILY cap 11/05/19 01/16/20 History fluticasone propionate 50 2 sprays INTRANASAL DAILY ml 11/05/19 01/16/20 History mcg/actuation nasal spray,suspension isosorbide mononitrate 30 mg 30 mg PO QAM #90 tab 11/05/19 01/16/20 Rx tablet,extended release 24 hr mexiletine 150 mg capsule 150 mg PO BID #180 cap 11/05/19 01/16/20 Rx nystatin 100,000 unit/gram topical 1 appln TOP BID #15 gm 11/05/19 01/16/20 Rx cream sacubitril 24 mg-valsartan 26 mg 1 tab PO DAILY@1200 30 Days #30 tab 11/05/19 01/15/20 Rx tablet triamcinolone acetonide 0.1 % 1 appln TOP TID 11/05/19 01/15/20 History topical cream acetaminophen 300 mg-codeine 30 mg 1 tab PO Q8H PRN #60 tab 11/25/19 01/15/20 Rx tablet CPAP Machine #1 ea 12/13/19 01/15/20 Rx CPAP Machine #1 ea 12/15/19 01/15/20 Rx nebulizers #1 ea 12/22/19 01/15/20 Rx Patient History Medical History Afib (Chronic) Allergic rhinitis (Acute) Asthma (Acute) Cervical radiculopathy (Acute) Chronic systolic heart failure COPD (chronic obstructive pulmonary disease) Coronary artery disease Degenerative cervical disc Diabetes mellitus, type 2 Dyslipidemia (Chronic) Hepatitis C History of ventricular tachycardia Hypertension (Chronic) Hypoxemia (Acute) ICD (implantable cardioverter-defibrillator) in place Impotence, organic Ischemic cardiomyopathy Nephrolithiasis Obesity Obstructive sleep apnea of adult Peripheral neuropathy Renal mass (Chronic) Stage III chronic kidney disease (Chronic) Vitamin D deficiency (Chronic) Surgical History History of coronary artery stent placement History of implantable cardioverter-defibrillator (ICD) placement Family History Unknown Cardiac disorder Hypertension Diabetes Father Myocardial infarction Mother Myocardial infarction Denies family history of Ovarian cancer Prostate cancer Breast cancer Colorectal cancer Social History Preferred Language: Wolof Communication Ability: Effective Visual Impairment: No Limitations Hearing Ability: Normal Poiser Balance Required: No Beliefs That Will Affect Care: None marital status: Current Living Situation: Spouse Current Living Situation Comment: with & son current occupational status: retired Other Information That Helps Us Care for You: No Feels Safe at Home: Yes Safety Concerns: Feels Safe At This Time Smoking Status: Former smoker Tobacco Type: cigarettes ; packs per day: 1.5 ; Second Hand Exposure: No ; Hx Alcohol Use: No Hx Substance Use: No caffeine: No Dental Care, Regularly: No Physical Activity Frequency: 5-6 Times per Week Physical Activity Frequency Comment: walking Seatbelt Use: sometimes Sunscreen Use: No Results & Data Vital Signs (Past 12 Hours) Vital Signs Temp Pulse Pulse Resp BP BP Pulse Ox 01/16/20 16:00 37 C 64 21 95 01/16/20 15:30 63 28 H 94 01/16/20 15:10 67 19 94 01/16/20 15:00 65 13 95 01/16/20 14:50 67 21 94 01/16/20 14:40 64 19 93 01/16/20 14:30 67 19 93 01/16/20 13:21 36.3 C L 70 18 129/94 94 01/16/20 13:15 70 16 95 01/16/20 13:11 65 21 129/94 93 Resident Activity Tracking Resident Involvement: Resident Care Provided Care Provided: Adult Hospital Medicine
--- NOTE | 2020-01-16 18:26 | Critical Care Consultation ---
Date of Consultation January 16, 2020 Assessment & Plan (1) Acute exacerbation of CHF (congestive heart failure): Reason Critically Ill: 64-year-old male who came in florid pulmonary edema acute hypoxic respiratory failure requiring diuretics noninvasive ventilation. PLAN: Resp: Acute hypoxic respiratory failure -Secondary to acute on chronic systolic and diastolic heart failure CV: Ischemic cardiomyopathy Coronary artery disease Status post AICD Acute on chronic systolic and diastolic congestive heart failure -Bumex infusion Fluids/Renal: Chronic kidney disease stage III Reported hyperkalemia at outside facility: This is resolved at this facility -Creatinine near baseline: 1.6-1.8 ID: Afebrile GI/Nutrition: Heart healthy diet, 2 g sodium or less, low potassium, fluid restriction of 1800 mL's Heme: Heparin DVT prophylaxis Endocrine: Outside facility reported blood glucose greater than 400 Hyperglycemia Type 2 diabetes -Insulin sliding scale Vascular access: Peripheral IVs Code Status: Full code Disposition: Discussed patient with hospitalist stable for downgrade since he has significantly clinically improved Present on Admission?: Yes (2) Volume overload: Present on Admission?: Yes (3) Renal mass: Present on Admission?: Yes (4) Stage III chronic kidney disease: Present on Admission?: Yes (5) Obstructive sleep apnea of adult: Present on Admission?: Yes (6) Obesity: Present on Admission?: Yes (7) Ischemic cardiomyopathy: Present on Admission?: Yes (8) Hypertension: (9) Dyslipidemia: Present on Admission?: Yes (10) Coronary artery disease: (11) ICD (implantable cardioverter-defibrillator) in place: (12) Diabetes mellitus, type 2: (13) History of ventricular tachycardia: History of Present Illness Reason for Consultation: Acute CHF, cardiomyopathy, hyperkalemia Requesting Physician: Neto Carlson MD Attending Physician: Neto Carlson MD History of Present Illness Patient is a 64-year-old male with significant past medical history of cardiomyopathy, CHF, obstructive sleep apnea, hypertension, coronary artery disease, status post AICD placement, diabetes type 2, history of ventricular tachycardia, who presented today to [place] emergency department with a chief complaint of shortness of breath. I was contacted by the emergency department provider at [place] to accept the patient in transfer as he was clinically in florid congestive heart failure, had been given Lasix and Bumex and had produced about 800 mL's of urine, requiring noninvasive mechanical ventilation which had initially started a CPAP and was converted to BiPAP at 14/6, and hyperkalemia with a potassium of 6.3. I confirmed with Dr. Heraclio Gaspar that if the patient were flown here we should be able to initiate emergent dialysis should this be required for both hyperkalemia as well as volume overload if the diuretics were ineffective. Patient arrived via stat [facility]ev[facility] was immediately seen by myself, he was transitioned to 02/11 and started on a Bumex infusion. Stat labs were obtained, the patient did not have hyperkalemia at this facility, he was eventually be able to be weaned off the noninvasive ventilator and is currently without chest pain resting comfortably in the bed on nasal cannula oxygen, he just finished his meal: Heart healthy with low sodium, low potassium with a fluid restriction of 1800 mL's. Allergies Allergy/AdvReac Type Severity Reaction Status Date / Time budesonide Allergy Unknown TACHYCARDIA, Verified 01/15/20 09:15 SOB carbamazepine Allergy Unknown TACHYCARDIA, Verified 01/15/20 09:15 PANIC ATTACK cyclobenzaprine Allergy Unknown UNK Verified 01/15/20 09:15 doxycycline Allergy Unknown ABD PAIN Verified 01/15/20 09:15 fluticasone Allergy Unknown UNK Verified 01/15/20 09:15 formoterol Allergy Unknown TACHYCARDIA, Verified 01/15/20 09:15 SOB salmeterol Allergy Unknown ANAPHYLAXIS Verified 01/15/20 09:15 morphine Allergy Unknown Verified 01/15/20 09:15 tiotropium Allergy Unknown Verified 01/15/20 09:15 [From Spiriva with HandiHaler] digoxin AdvReac Unknown BACK AND Verified 01/15/20 09:15 STOMACH PAIN metformin AdvReac Unknown MUSCLE Verified 01/15/20 09:15 ACHES IN BVACK AND KIDNEYS Sodium Propionate Allergy Unknown SHORTNESS Uncoded 12/03/19 09:55 OF BREATH Home Medications Home Medications Medication Instructions Recorded Confirmed Type amiodarone 200 mg PO DAILY 07/22/19 01/16/20 History aspirin [Ecotrin Low Strength] 81 mg PO DAILY 07/22/19 01/16/20 History carvedilol 37.5 mg PO BID 07/22/19 01/16/20 History glimepiride 2 mg PO DAILY 07/22/19 01/16/20 History nitroglycerin 0.4 mg SUBLINGUAL Q5M PRN 07/22/19 01/16/20 History bumetanide 1 mg tablet 1 mg PO DAILY #90 tab 11/05/19 01/16/20 Rx cholecalciferol (vitamin D3) 25 2,000 units PO DAILY tab 11/05/19 01/16/20 History mcg (1,000 unit) tablet coenzyme Q10 100 mg capsule 200 mg PO DAILY cap 11/05/19 01/16/20 History fluticasone propionate 50 2 sprays INTRANASAL DAILY ml 11/05/19 01/16/20 History mcg/actuation nasal spray,suspension isosorbide mononitrate 30 mg 30 mg PO QAM #90 tab 11/05/19 01/16/20 Rx tablet,extended release 24 hr mexiletine 150 mg capsule 150 mg PO BID #180 cap 11/05/19 01/16/20 Rx nystatin 100,000 unit/gram topical 1 appln TOP BID #15 gm 11/05/19 01/16/20 Rx cream sacubitril 24 mg-valsartan 26 mg 1 tab PO DAILY@1200 30 Days #30 tab 11/05/19 01/15/20 Rx tablet triamcinolone acetonide 0.1 % 1 appln TOP TID 11/05/19 01/16/20 History topical cream Patient History Medical History Afib (Chronic) Allergic rhinitis (Acute) Asthma (Acute) Cervical radiculopathy (Acute) Chronic systolic heart failure COPD (chronic obstructive pulmonary disease) Coronary artery disease Degenerative cervical disc Diabetes mellitus, type 2 Dyslipidemia (Chronic) Hepatitis C History of ventricular tachycardia Hypertension (Chronic) Hypoxemia (Acute) ICD (implantable cardioverter-defibrillator) in place Impotence, organic Ischemic cardiomyopathy Nephrolithiasis Obesity Obstructive sleep apnea of adult Peripheral neuropathy Renal mass (Chronic) Stage III chronic kidney disease (Chronic) Vitamin D deficiency (Chronic) Surgical History History of coronary artery stent placement History of implantable cardioverter-defibrillator (ICD) placement Family History Unknown Cardiac disorder Hypertension Diabetes Father Myocardial infarction Mother Myocardial infarction Denies family history of Ovarian cancer Prostate cancer Breast cancer Colorectal cancer Social History Preferred Language: Singaporean Communication Ability: Effective Visual Impairment: No Limitations Hearing Ability: Normal 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 Beliefs That Will Affect Care: None marital status: Current Living Situation: Spouse Current Living Situation Comment: with & son current occupational status: retired Other Information That Helps Us Care for You: No Feels Safe at Home: Yes Safety Concerns: Feels Safe At This Time Smoking Status: Former smoker Tobacco Type: cigarettes ; packs per day: 1.5 ; Second Hand Exposure: No ; Hx Alcohol Use: No Hx Substance Use: No caffeine: No Dental Care, Regularly: No Physical Activity Frequency: 5-6 Times per Week Physical Activity Frequency Comment: walking Seatbelt Use: sometimes Sunscreen Use: No Review of Systems Review of Systems: All systems reviewed & are unremarkable except as noted in HPI & below Denies chest pain, positive shortness of breath, does not want Levy catheter Physical Exam Physical Exam: General: Alert. nontoxic. Skin: Warm, dry, Head: Atraumatic Ears, nose, mouth and throat: airway patent, noninvasive ventilator mask present, speaks in complete sentences Cardiovascular: Normal peripheral perfusion, trace peripheral edema Respiratory: no respiratory distress, speaking in full sentences Gastrointestinal: Non distended Musculoskeletal: No deformity, no clubbing Results & Data ([facility]) Vital Signs (Past 12 Hours) Vital Signs Temp Pulse Pulse Resp BP BP Pulse Ox 01/16/20 16:00 37 C 64 21 95 01/16/20 15:30 63 28 H 94 01/16/20 15:10 67 19 94 01/16/20 15:00 65 13 95 01/16/20 14:50 67 21 94 01/16/20 14:40 64 19 93 01/16/20 14:30 67 19 93 01/16/20 13:21 36.3 C L 70 18 129/94 94 01/16/20 13:15 70 16 95 01/16/20 13:11 65 21 129/94 93 Laboratory Results 01/16/20 01/16/20 01/16/20 Range/Units 16:15 16:14 15:17 WBC (4.8-10.8) K/uL RBC (4.7-6.1) M/uL Hgb (14.0-18.0) g/dL Hct (42-52) % MCV (80-100) fL MCH (25-34) pg MCHC (32-36) g/dL RDW Std Deviation (36.4-46.3) fL RDW Coeff of Tristan (11.5-14.5) % Plt Count (130-400) K/uL MPV (7.4-10.4) fL Immature Gran % (Auto) % Neut % (Auto) % Lymph % (Auto) % [place] % (Auto) % Eos % (Auto) % Baso % (Auto) % Immature Gran # (Auto) (0.00-0.02) K/uL Neut # (Auto) (1.4-6.5) K/uL Lymph # (Auto) (1.2-3.4) K/uL [place] # (Auto) (0.11-0.59) K/uL Eos # (Auto) (0-0.5) K/uL Baso # (Auto) (0-0.2) K/uL PT (9.0-12.0) Seconds INR (0.9-1.1) APTT (21.0-31.0) Seconds PTT Ratio VBG pH (7.36-7.41) VBG pCO2 (38-50) mmHg VBG pO2 mmHg VBG HCO3 mmol/L VBG O2 Saturation % VBG Base Excess mEq/L Barometric Pressure mm/Hg Sodium (136-145) mmol/L Potassium (3.5-5.1) mmol/L Chloride (98-107) mmol/L Carbon Dioxide (21-32) mmol/L Anion Gap (3-11) BUN (7-18) mg/dl Creatinine (0.6-1.4) mg/dl Est Cr Clr Drug Dosing ml/min Est GFR ( Amer) Est GFR (Non-Af Amer) BUN/Creatinine Ratio (10-20) Glucose (70-99) mg/dl POC Glucose 179 H 177 H (70-99) mg/dl Lactate (0.4-2.0) mmol/L Calcium (8.5-10.1) mg/dl Ionized Calcium (1.12-1.32) mmol/L Phosphorus (2.5-4.9) mg/dl Magnesium (1.8-2.4) mg/dl Total Bilirubin (0.2-1) mg/dl Direct Bilirubin (0-0.2) mg/dl AST (15-37) U/L ALT (12-78) U/L Alkaline Phosphatase (45-117) U/L Troponin I (0-0.045) ng/ml Total Protein (6.4-8.2) gm/dl Albumin (3.4-5.0) gm/dl Lipase (73-393) U/L Nasal Screen MRSA (PCR) Negative (Negative) Blood Type Antibody Screen 01/16/20 01/16/20 01/16/20 Range/Units 13:50 13:49 13:49 WBC (4.8-10.8) K/uL RBC (4.7-6.1) M/uL Hgb (14.0-18.0) g/dL Hct (42-52) % MCV (80-100) fL MCH (25-34) pg MCHC (32-36) g/dL RDW Std Deviation (36.4-46.3) fL RDW Coeff of Tristan (11.5-14.5) % Plt Count (130-400) K/uL MPV (7.4-10.4) fL Immature Gran % (Auto) % Neut % (Auto) % Lymph % (Auto) % [place] % (Auto) % Eos % (Auto) % Baso % (Auto) % Immature Gran # (Auto) (0.00-0.02) K/uL Neut # (Auto) (1.4-6.5) K/uL Lymph # (Auto) (1.2-3.4) K/uL [place] # (Auto) (0.11-0.59) K/uL Eos # (Auto) (0-0.5) K/uL Baso # (Auto) (0-0.2) K/uL PT (9.0-12.0) Seconds INR (0.9-1.1) APTT (21.0-31.0) Seconds PTT Ratio VBG pH 7.44 H (7.36-7.41) VBG pCO2 35 L (38-50) mmHg VBG pO2 56 mmHg VBG HCO3 23 mmol/L VBG O2 Saturation 90.1 % VBG Base Excess -0.4 mEq/L Barometric Pressure 726.4 mm/Hg Sodium Cancelled (136-145) mmol/L Potassium Cancelled (3.5-5.1) mmol/L Chloride Cancelled (98-107) mmol/L Carbon Dioxide Cancelled (21-32) mmol/L Anion Gap Cancelled (3-11) BUN Cancelled (7-18) mg/dl Creatinine Cancelled (0.6-1.4) mg/dl Est Cr Clr Drug Dosing Cancelled ml/min Est GFR ( Amer) Cancelled Est GFR (Non-Af Amer) Cancelled BUN/Creatinine Ratio Cancelled (10-20) Glucose Cancelled (70-99) mg/dl POC Glucose (70-99) mg/dl Lactate (0.4-2.0) mmol/L Calcium Cancelled (8.5-10.1) mg/dl Ionized Calcium 1.22 (1.12-1.32) mmol/L Phosphorus (2.5-4.9) mg/dl Magnesium (1.8-2.4) mg/dl Total Bilirubin (0.2-1) mg/dl Direct Bilirubin (0-0.2) mg/dl AST (15-37) U/L ALT (12-78) U/L Alkaline Phosphatase (45-117) U/L Troponin I Cancelled (0-0.045) ng/ml Total Protein (6.4-8.2) gm/dl Albumin (3.4-5.0) gm/dl Lipase Cancelled (73-393) U/L Nasal Screen MRSA (PCR) (Negative) Blood Type Antibody Screen 01/16/20 01/16/20 01/16/20 Range/Units 13:49 13:49 13:49 WBC (4.8-10.8) K/uL RBC (4.7-6.1) M/uL Hgb (14.0-18.0) g/dL Hct (42-52) % MCV (80-100) fL MCH (25-34) pg MCHC (32-36) g/dL RDW Std Deviation (36.4-46.3) fL RDW Coeff of Tristan (11.5-14.5) % Plt Count (130-400) K/uL MPV (7.4-10.4) fL Immature Gran % (Auto) % Neut % (Auto) % Lymph % (Auto) % [place] % (Auto) % Eos % (Auto) % Baso % (Auto) % Immature Gran # (Auto) (0.00-0.02) K/uL Neut # (Auto) (1.4-6.5) K/uL Lymph # (Auto) (1.2-3.4) K/uL [place] # (Auto) (0.11-0.59) K/uL Eos # (Auto) (0-0.5) K/uL Baso # (Auto) (0-0.2) K/uL PT 11.9 (9.0-12.0) Seconds INR 1.2 H (0.9-1.1) APTT 25.8 (21.0-31.0) Seconds PTT Ratio 1.0 VBG pH (7.36-7.41) VBG pCO2 (38-50) mmHg VBG pO2 mmHg VBG HCO3 mmol/L VBG O2 Saturation % VBG Base Excess mEq/L Barometric Pressure mm/Hg Sodium 138 (136-145) mmol/L Potassium 4.8 (3.5-5.1) mmol/L Chloride 106 (98-107) mmol/L Carbon Dioxide 23 (21-32) mmol/L Anion Gap 9.0 (3-11) BUN 37 H (7-18) mg/dl Creatinine 1.76 H (0.6-1.4) mg/dl Est Cr Clr Drug Dosing 46.8 ml/min Est GFR ( Amer) 45.7 Est GFR (Non-Af Amer) 39.4 BUN/Creatinine Ratio 21.2 H (10-20) Glucose 197 H (70-99) mg/dl POC Glucose (70-99) mg/dl Lactate 2.3 H* (0.4-2.0) mmol/L Calcium 10.2 H (8.5-10.1) mg/dl Ionized Calcium (1.12-1.32) mmol/L Phosphorus 5.1 H (2.5-4.9) mg/dl Magnesium 2.6 H (1.8-2.4) mg/dl Total Bilirubin 0.5 (0.2-1) mg/dl Direct Bilirubin 0.1 (0-0.2) mg/dl AST 26 (15-37) U/L ALT 52 (12-78) U/L Alkaline Phosphatase 61 (45-117) U/L Troponin I 0.181 H* (0-0.045) ng/ml Total Protein 8.2 (6.4-8.2) gm/dl Albumin 3.8 (3.4-5.0) gm/dl Lipase 114 (73-393) U/L Nasal Screen MRSA (PCR) (Negative) Blood Type Antibody Screen 01/16/20 01/16/20 01/16/20 Range/Units 13:49 13:49 13:21 WBC 17.12 H (4.8-10.8) K/uL RBC 5.49 (4.7-6.1) M/uL Hgb 16.8 (14.0-18.0) g/dL Hct 50.5 (42-52) % MCV 92.0 (80-100) fL MCH 30.6 (25-34) pg MCHC 33.3 (32-36) g/dL RDW Std Deviation 47.3 H (36.4-46.3) fL RDW Coeff of Tristan 14.0 (11.5-14.5) % Plt Count 217 (130-400) K/uL MPV 10.2 (7.4-10.4) fL Immature Gran % (Auto) 1.3 % Neut % (Auto) 88.5 % Lymph % (Auto) 5.9 % [place] % (Auto) 4.1 % Eos % (Auto) 0.1 % Baso % (Auto) 0.1 % Immature Gran # (Auto) 0.22 H (0.00-0.02) K/uL Neut # (Auto) 15.15 H (1.4-6.5) K/uL Lymph # (Auto) 1.01 L (1.2-3.4) K/uL [place] # (Auto) 0.71 H (0.11-0.59) K/uL Eos # (Auto) 0.01 (0-0.5) K/uL Baso # (Auto) 0.02 (0-0.2) K/uL PT (9.0-12.0) Seconds INR (0.9-1.1) APTT (21.0-31.0) Seconds PTT Ratio VBG pH (7.36-7.41) VBG pCO2 (38-50) mmHg VBG pO2 mmHg VBG HCO3 mmol/L VBG O2 Saturation % VBG Base Excess mEq/L Barometric Pressure mm/Hg Sodium (136-145) mmol/L Potassium (3.5-5.1) mmol/L Chloride (98-107) mmol/L Carbon Dioxide (21-32) mmol/L Anion Gap (3-11) BUN (7-18) mg/dl Creatinine (0.6-1.4) mg/dl Est Cr Clr Drug Dosing ml/min Est GFR ( Amer) Est GFR (Non-Af Amer) BUN/Creatinine Ratio (10-20) Glucose (70-99) mg/dl POC Glucose 189 H (70-99) mg/dl Lactate (0.4-2.0) mmol/L Calcium (8.5-10.1) mg/dl Ionized Calcium (1.12-1.32) mmol/L Phosphorus (2.5-4.9) mg/dl Magnesium (1.8-2.4) mg/dl Total Bilirubin (0.2-1) mg/dl Direct Bilirubin (0-0.2) mg/dl AST (15-37) U/L ALT (12-78) U/L Alkaline Phosphatase (45-117) U/L Troponin I (0-0.045) ng/ml Total Protein (6.4-8.2) gm/dl Albumin (3.4-5.0) gm/dl Lipase (73-393) U/L Nasal Screen MRSA (PCR) (Negative) Blood Type A Positive Antibody Screen NEGATIVE Diagnostic Findings EKG: Atrial sensed ventricular paced rhythm with a rate of 68. Abnormal EKG, no prior for comparison Chest x-ray shows a AICD in place with mild cephalization no obvious focal infiltrates. Medications Administered Heparin Sodium (Porcine) (Heparin Sodium (Porcine)) 5,000 units SQ Q8 EMMA Stop: 02/15/20 14:59 Last Admin: 01/16/20 17:22 Dose: 5,000 units Documented by: [id number] Cosigned by: [id number] Bumetanide 10 mg/ Dextrose 50 mls @ 5 mls/hr IV .Q10H EMMA Stop: 02/15/20 13:29 Last Admin: 02/28/20 13:44 Dose: 5 mls/hr Documented by: [id number] Insulin Aspart (Novolog Flexpen) 0 units SC ACHS EMMA Stop: 02/15/20 16:29 Last Admin: 01/16/20 17:19 Dose: 4 units Documented by: [id number] Cosigned by: [id number] Discontinued Medications Bumetanide 10 mg/ Dextrose 50 mls @ 5 mls/hr IV .Q10H EMMA Stop: 02/15/20 13:27 Last Admin: 01/16/20 16:07 Dose: Not Given Documented by: [id number] Yadiracellaneous (Insulin Protocol Goal Range) 1 ea N/A ONE ONE Stop: 01/16/20 13:29 Last Admin: 01/16/20 16:54 Dose: Not Given Documented by: [id number] Jewel (Insulin Protocol Moderate Stress Level) 1 ea N/A ONE ONE Stop: 01/16/20 13:29 Last Admin: 01/16/20 16:54 Dose: Not Given Documented by: [id number] Pneumococcal Polyvalent Vaccine (Pneumovax-23) 25 mcg IM .ONCE ONE Stop: 01/16/20 13:41 Last Admin: 01/16/20 17:34 Dose: Not Given Documented by: [id number] Coding Level of Care Code Critical Care 1st 30-74 mins Diagnoses Acute exacerbation of CHF (congestive heart failure) I50.43 Heart failure type: combined systolic and diastolic Volume overload E87.79 Hypervolemia type: other Renal mass N28.89 Stage III chronic kidney disease N18.3 Obstructive sleep apnea of adult G47.33 Obesity E66.9 Obesity classification: adult class 1 (BMI 30 - 34.9) Serious obesity comorbidity presence: with serious comorbidity Body mass index: BMI 34.0-34.9 Ischemic cardiomyopathy I25.5 Hypertension I10 Hypertension type: essential hypertension Dyslipidemia E78.5 Coronary artery disease I25.10 [place] vs. transplanted heart: [place] heart Associated angina: without angina Coronary Disease-Associated Artery/Lesion type: [place] artery ICD (implantable cardioverter-defibrillator) in place Z95.810 Diabetes mellitus, type 2 E11.9 History of ventricular tachycardia Z86.79 Time Spent (min) 70 Comment I have personally spent 70 minutes of critical care time in the direct management of this patient. This is a life/limb threatening event. This includes time spent evaluating patient, direct bedside care, chart review, placing orders, interpretation of diagnostic studies, discussion with consultants, patient, and/or family members regarding treatment decisions, as well as other required patient management activities. This time is exclusive of all separately billable procedures, and teaching time and separate from and in addition to any other critical care service time. (1) Volume overload Hypervolemia type: other Qualified Code(s): E87.79 - Other fluid overload (2) Acute exacerbation of CHF (congestive heart failure) Heart failure type: combined systolic and diastolic Qualified Code(s): I50.43 - Acute on chronic combined systolic (congestive) and diastolic (congestive) heart failure (3) Obesity Obesity classification: adult class 1 (BMI 30 - 34.9) Serious obesity comorbidity presence: with serious comorbidity Body mass index: BMI 34.0-34.9 (4) Hypertension Hypertension type: essential hypertension Qualified Code(s): I10 - Essential (primary) hypertension (5) Coronary artery disease [place] vs. transplanted heart: [place] heart Associated angina: without angina Coronary Disease-Associated Artery/Lesion type: [place] artery Qualified Code(s): I25.10 - Atherosclerotic heart disease of [place] coronary artery withou t angina pectoris
--- NOTE | 2020-01-16 18:38 | Electrocardiogram Report ---
Test Reason : Blood Pressure : / mmHG Vent. Rate : 068 BPM Atrial Rate : 068 BPM P-R Int : 152 ms QRS Dur : 172 ms QT Int : 458 ms P-R-T Axes : 043 253 056 degrees QTc Int : 487 ms Atrial-sensed ventricular-paced rhythm Biventricular pacemaker detected Abnormal ECG When compared with ECG of 23-JUL-2019 14:39, Vent. rate has increased BY 4 BPM Confirmed by Maik Agee ([id number]) on 01/16/2020 6:37:55 PM Referred By: REFERRED SELF Confirmed By:Tariq Agee
[2020-01-16 20:48] LABS: BUN Creatinine Ratio 21.9 (10-20); Calcium 9.7 mg/dl (8.5-10.1); Creatinine Clr Calc Pharmacy 35.6 ml/min; Est GFR (African American) 32.9; Est GFR (Non-African American) 28.4; Potassium 4.3 mmol/L (3.5-5.1)
[2020-01-16 20:54] LABS: Troponin I 0.172 ng/ml (0-0.045)
[2020-01-16] MEDS ORDERED: INSULIN GLARGINE SOLOSTAR 100 UNITS/ML 3 ML PEN SC SCH (21:00)
[2020-01-16] MEDS: LEVALBUTEROL HCL 0.63 MG/3 ML NEB NEB PRN (22:20)
[2020-01-16] MEDS: ACETAMINOPHEN 325 MG TAB PO PRN (22:32)
[2020-01-16] MEDS ORDERED: COUGH DROP (SUGAR FREE) LOZ 24 LOZ/1 BOX BUCCAL STA (23:57)
[2020-01-17] MEDS ORDERED: INSULIN ASPART 100 UNITS/ML 3 ML PEN SC ONE (02:00)
[2020-01-17 02:16] LABS: BUN Creatinine Ratio 26.3 (10-20); Calcium 9.4 mg/dl (8.5-10.1); Creatinine Clr Calc Pharmacy 35.2 ml/min; Est GFR (African American) 32.4; Est GFR (Non-African American) 27.9; Potassium 4.1 mmol/L (3.5-5.1)
[2020-01-17 02:26] LABS: Troponin I 0.113 ng/ml (0-0.045)
[2020-01-17] MEDS: BUMETANIDE 10 MG in DEXTROSE 5% 10 ML IV SCH ×2 (05:35→15:27)
[2020-01-17] MEDS: HEPARIN SOD 5,000 UNIT/0.5 ML VIAL SQ SCH ×3 (05:35→19:55)
[2020-01-17] MEDS: LEVALBUTEROL HCL 0.63 MG/3 ML NEB NEB PRN ×2 (07:26→19:38)
[2020-01-17] MEDS: INSULIN ASPART 100 UNITS/ML 3 ML PEN SC SCH ×4 (07:58→20:50)
[2020-01-17] MEDS ORDERED: INSULIN GLARGINE SOLOSTAR 100 UNITS/ML 3 ML PEN SC SCH (09:00)
[2020-01-17 09:58] LABS: Estimated Average Glucose 163 mg/dl; Hemoglobin A1C 7.3 % (4.5-5.6)
[2020-01-17] MEDS: ACETAMINOPHEN 325 MG TAB PO PRN ×2 (11:19→19:54)
[2020-01-17 12:03] LABS: BUN Creatinine Ratio 29.5 (10-20); Calcium 9.2 mg/dl (8.5-10.1); Creatinine Clr Calc Pharmacy 34.9 ml/min; Est GFR (African American) 32.9; Est GFR (Non-African American) 28.4; Potassium 3.8 mmol/L (3.5-5.1)
--- NOTE | 2020-01-17 12:49 | Electrocardiogram Report ---
Test Reason : Blood Pressure : / mmHG Vent. Rate : 060 BPM Atrial Rate : 060 BPM P-R Int : 158 ms QRS Dur : 184 ms QT Int : 578 ms P-R-T Axes : 000 249 090 degrees QTc Int : 578 ms AV dual-paced rhythm Biventricular pacemaker detected Abnormal ECG When compared with ECG of 16-JAN-2020 13:39, Vent. rate has decreased BY 8 BPM Confirmed by Cristian Jose ([id number]) on 01/17/2020 12:49:24 PM Referred By: REFERRED SELF Confirmed By:Cristian Jose
--- NOTE | 2020-01-17 13:02 | Pharmacy Report ---
Glycemic Control Consultation - Date of Service January 17, 2020 - Scope Scope: Glycemic Pharmacist consulted by Dr Carlson on for glycemic control and to write orders per [facility] inpatient glycemic control protocol - Objective Weight: 96.9 kg Accuchecks BSG (last 24hrs): 01/16/20 01/16/20 01/16/20 13:21 13:49 13:49 Glucose 197 H Cancelled POC Glucose 189 H 01/16/20 01/16/20 01/16/20 15:17 16:14 20:05 Glucose 233 H POC Glucose 177 H 179 H 01/16/20 01/17/20 01/17/20 20:33 01:16 01:56 Glucose 261 H POC Glucose 195 H 253 H 01/17/20 01/17/20 01/17/20 06:56 07:53 11:15 Glucose Cancelled 205 H POC Glucose 257 H 01/17/20 11:30 Glucose POC Glucose 200 H Laboratory Data (last 24hrs): 01/16/20 01/16/20 01/16/20 13:49 13:49 20:05 Potassium 4.8 Cancelled 4.3 Carbon Dioxide 23 Cancelled 23 Anion Gap 9.0 Cancelled 12.0 H Creatinine 1.76 H Cancelled 2.31 H D Est Cr Clr Drug Dosing 46.8 Cancelled 35.6 01/17/20 01/17/20 01/17/20 01:16 06:56 11:15 Potassium 4.1 Cancelled 3.8 Carbon Dioxide 23 Cancelled 28 Anion Gap 12.0 H Cancelled 10.0 Creatinine 2.34 H Cancelled 2.31 H Est Cr Clr Drug Dosing 35.2 Cancelled 34.9 HbA1c: Hemoglobin A1c 7.3 % (4.5-5.6) H 01/17/20 06:56 - Recent Pertinent Medications Outpatient Anti-diabetic Regimen: * Glimepiride 2 mg daily * A1c = 7.3 % 01/17/20 The patient is currently receiving: * Basal insulin: Lantus 15 units every 24 hours * Correctional Insulin: Novolog Correction per scale ACHS Goal Range: Low 110 mg/dL - High 150 mg/dL Correction Factor: 25 mg/dL/unit * Prandial insulin: Per carb ratio of 1 unit per 8 grams CHO consumed Risk Factors for Insulin Resistance: * IVF: Bumex drip mixed in dextrose * Diet: T2DM - Assessment & Plan Assessment & Plan: ASSESSMENT: * 64 y/o male admitted for acute CHF exacerbation. PMH pertinent for cardiomyopathy, CHF, obstructive sleep apnea, hypertension, coronary artery disease, status post AICD placement, T2DM, history of ventricular tachycardia. * He was initiated on basal/bolus insulin therapy last evening, as oral agents are typically not continued in the hospital setting * After receiving ~20 units of insulin yesterday, BSGs were still in the 200s this AM. This is exacerbated by the Bumex infusion. * Will plan to increase basal to weight based dosing and stress level of 1 or 2. Will also tighten CF/CR until more basal on board and to further correct BSGs while Bumex running. PLAN FOR INPATIENT GLYCEMIC CONTROL: * Holding outpatient oral diabetes medications * Basal insulin - increase * Lantus 15 units this AM, then BID per the following scale: * 10 units for BSG < 160 * 15 units for BSG 160 or above * Bolus insulin - tighten goal range and CF/CR * NovoLog per scale ACHS or Q6hrs while NPO * Goal Range: Low 110 mg/dL - High 140 mg/dL * Correction Factor: 20 mg/dL/unit * Nutritional / Prandial insulin per carb ratio of 1 unit per 7 grams CHO consumed * Please note that the plan above was derived based on current level of insulin resistance and hospital stress. These recommendations are appropriate for inpatient admission only. Plan of care upon discharge will need to be reassessed to avoid potential outpatient hypo/hyperglycemia. Thank you.
[2020-01-17] MEDS: INSULIN GLARGINE SOLOSTAR 100 UNITS/ML 3 ML PEN SC SCH (20:51)
--- NOTE | 2020-01-17 21:23 | Hospitalist Progress Note ---
Date of Service January 17, 2020 Assessment & Plan (1) Acute respiratory failure with hypoxia: 2nd to decompensated CHF - resolved off O2 (2) Acute on chronic systolic heart failure: markedly improved. he is back to baseline weight. creatinine has jumped to 2.3 STOP bumex infusion repeat labs in am resume coreg perhaps at lower dose tonight hold entresto (3) Ischemic cardiomyopathy: with resulting chronic systolic CHF - severe (EF <20%) (4) Dyslipidemia: (5) History of ventricular tachycardia: has ICD in place resume amiodarone monitoring stable since admission (pacing) (6) Peripheral neuropathy: (7) ICD (implantable cardioverter-defibrillator) in place: no recent discharges (8) Diabetes mellitus, type 2: glycemic consult appreciated a1c 7.3% (9) Coronary artery disease: cont asa, BB, etc (10) Hypertension: controlled resume coreg (11) Stage III chronic kidney disease: baseline Cr 1.5 to 1.9 repeat BMP am (12) Renal mass: b/l needs f/u with urology for such (13) COPD (chronic obstructive pulmonary disease): not in exacerbation at this time (14) Acute kidney injury: 2nd to diuresis stop bumex bmp am (15) DVT prophylaxis: heparin SC anticipate d/c tomorrow Admission and Anticipated Discharge Date Admission Date: January 16, 2020 Anticipated date of discharge: 01/18/20 Subjective patient feeling "back to normal" breathing has normalized denies dyspnea at rest or w/ exertion no orthopnea had numerous questions about his medications and after care only complaint was that of b/l chest wall discomfort worse with coughing Review of Systems Constitutional: no fever Respiratory: no dyspnea Cardiovascular: as per Subjective / HPI and + chest pain; no orthopnea, no paroxysmal nocturnal dyspnea and no edema Gastrointestinal: no abdominal pain, no nausea and no vomiting Physical Exam Constitutional: no acute distress and no altered mental status ENMT: external ear and nose normal, oropharynx normal Respiratory: no respiratory distress Auscultation: + crackles (left base only); no diminished lung sounds and no wheezes Cardiovascular: Rate/Rhythm: regular rate and regular rhythm Heart Sounds: normal S1, normal S2 and + murmur (systolic, 2/6 - LSB ) Vessels: posterior tibial pulses present and dorsalis pedis pulses present; no JVD Extremities: no edema Gastrointestinal (Abdomen): normal bowel sounds, soft, nontender, no hepatosplenomegaly Psychiatric: A+Ox3, euthymic affect Results & Data ([facility]) Vital Signs (Past 12 Hours) Vital Signs Temp Pulse Resp BP Pulse Ox 01/17/20 19:40 74 18 94 01/17/20 18:41 36.6 C 74 18 137/83 92 01/17/20 15:03 36.6 C 63 18 142/90 H 91 01/17/20 11:55 36.6 C 71 18 124/82 92 Laboratory Results Laboratory Results - last 24 hr 01/17/20 01/17/20 01/17/20 01:16 01:56 06:56 Sodium 136 Cancelled Potassium 4.1 Cancelled Chloride 101 Cancelled Carbon Dioxide 23 Cancelled Anion Gap 12.0 H Cancelled BUN 62 H Cancelled Creatinine 2.34 H Cancelled Est Cr Clr Drug Dosing 35.2 Cancelled Est GFR ( Amer) 32.4 Cancelled Est GFR (Non-Af Amer) 27.9 Cancelled BUN/Creatinine Ratio 26.3 H Cancelled Glucose 261 H Cancelled POC Glucose 253 H Estimat Average Glucose Hemoglobin A1c Calcium 9.4 Cancelled Troponin I 0.113 H* Specimen Hemolysis 01/17/20 01/17/20 01/17/20 06:56 07:53 11:15 Sodium 136 Potassium 3.8 Chloride 98 Carbon Dioxide 28 Anion Gap 10.0 BUN 68 H Creatinine 2.31 H Est Cr Clr Drug Dosing 34.9 Est GFR ( Amer) 32.9 Est GFR (Non-Af Amer) 28.4 BUN/Creatinine Ratio 29.5 H Glucose 205 H POC Glucose 257 H Estimat Average Glucose 163 Hemoglobin A1c 7.3 H Calcium 9.2 Troponin I Specimen Hemolysis 01/17/20 01/17/20 01/17/20 11:30 16:07 20:49 Sodium Potassium Chloride Carbon Dioxide Anion Gap BUN Creatinine Est Cr Clr Drug Dosing Est GFR ( Amer) Est GFR (Non-Af Amer) BUN/Creatinine Ratio Glucose POC Glucose 200 H 205 H 334 H* Estimat Average Glucose Hemoglobin A1c Calcium Troponin I Specimen Hemolysis PG Care Time/CCT Total # of Minutes Spent Total Time Spent with Patient: Total time spent is greater than 50% in c oordination of care (as documented) at patient's floor/unit and/or counseling patient: Coding Level of Care Code 90767 Subseq Hosp Care Lvl 2 Diagnoses Acute respiratory failure with hypoxia J96.01 Acute on chronic systolic heart failure I50.23 Ischemic cardiomyopathy I25.5 Dyslipidemia E78.5 History of ventricular tachycardia Z86.79 Peripheral neuropathy G62.9 ICD (implantable cardioverter-defibrillator) in place Z95.810 Diabetes mellitus, type 2 E11.9 Coronary artery disease I25.10 Coronary Disease-Associated Artery/Lesion type: [place] artery [place] vs. transplanted heart: [place] heart Associated angina: without angina Hypertension I10 Hypertension type: essential hypertension Stage III chronic kidney disease N18.3 Renal mass N28.89 COPD (chronic obstructive pulmonary disease) J44.9 Acute kidney injury N17.9 DVT prophylaxis Z29.9 (1) Coronary artery disease Coronary Disease-Associated Artery/Lesion type: [place] artery [place] vs. transplanted heart: [place] heart Associated angina: without angina Qualified Code(s): I25.10 - Atherosclerotic heart disease of [place] coronary artery without angina pectoris (2) Hypertension Hypertension type: essential hypertension Qualified Code(s): I10 - Essential (primary) hypertension
[2020-01-17] MEDS: carvediloL 12.5 MG TAB PO SCH (21:43)
[2020-01-18] MEDS ORDERED: SODIUM CHLORIDE 0.65% NA SOLN 45 ML (OCEAN) ONE (00:02)
[2020-01-18] MEDS: HEPARIN SOD 5,000 UNIT/0.5 ML VIAL SQ SCH (06:31)
[2020-01-18 06:48] LABS: BUN Creatinine Ratio 35.8 (10-20); Calcium 9.8 mg/dl (8.5-10.1); Creatinine Clr Calc Pharmacy 33.6 ml/min; Est GFR (African American) 31.6; Est GFR (Non-African American) 27.2; Magnesium 2.6 mg/dl (1.8-2.4); Potassium 3.3 mmol/L (3.5-5.1)
[2020-01-18] MEDS ORDERED: POTASSIUM CHLORIDE 20 MEQ TABCR PO STA (07:45)
[2020-01-18] MEDS: INSULIN ASPART 100 UNITS/ML 3 ML PEN SC SCH ×2 (07:49→11:38)
[2020-01-18] MEDS: INSULIN GLARGINE SOLOSTAR 100 UNITS/ML 3 ML PEN SC SCH (07:50)
[2020-01-18] MEDS: carvediloL 12.5 MG TAB PO SCH (07:52)
[2020-01-18] MEDS ORDERED: AMIODARONE 200 MG TAB PO SCH (09:00)
[2020-01-18] MEDS ORDERED: COUGH DROP (SUGAR FREE) LOZ 24 LOZ/1 BOX BUCCAL ONE (09:14)
--- NOTE | 2020-01-18 11:23 | Discharge Summary ---
Date of Service date of admission - January 16, 2020 date of discharge - January 18, 2020 Admission HPI Per Admitting Provider The patient is a 64 years old male with past medical history of chronic systolic heart failure, A. fib, diabetes mellitus type 2, ICD/pacemaker, COPD, dyslipidemia, hypertension, ischemic cardiomyopathy, obesity, bilateral renal mass, and CKD transferred from [facility] ER for acute exacerbation of CHF, shortness of breath, and volume overload. Patient wears CPAP at home. He uses oxygen as needed. Patient reports that he was not feeling well since yesterday and he finally decided to call paramedics after he woke up this morning. Patient reports having a cough and congestion shortness of breath that are worsening since yesterday. Patient denies fever, chills, chest pain, abdominal pain, hemoptysis, hematuria, dysuria, chest discomfort, syncope near syncope. EKG reviewed: Atrial sensed ventricular paced rhythm with biventricular pacemaker detected. QT interval 458. Labs are still pending. Chest x-ray is pending. Decision was made to admit patient to ICU for further evaluation and treatment of acute exacerbation systolic CHF. Principal Diagnosis acute/chronic systolic CHF Discharge Exam Constitutional no acute distress and no altered mental status ENMT external ear and nose normal, oropharynx normal Respiratory no respiratory distress Auscultation: + crackles (left base only); no diminished lung sounds and no wheezes Cardiovascular Rate/Rhythm: regular rate and regular rhythm Heart Sounds: normal S1, normal S2 and + murmur (systolic, 2/6 - LSB ) Vessels: posterior tibial pulses present and dorsalis pedis pulses present; no JVD Extremities: no edema Gastrointestinal (Abdomen) normal bowel sounds, soft, nontender, no hepatosplenomegaly Psychiatric A+Ox3, euthymic affect Discharge Data Allergies Allergy/AdvReac Type Severity Reaction Status Date / Time budesonide Allergy Unknown TACHYCARDIA, Verified 01/21/20 13:20 SOB carbamazepine Allergy Unknown TACHYCARDIA, Verified 01/21/20 13:20 PANIC ATTACK cyclobenzaprine Allergy Unknown UNK Verified 01/21/20 13:20 doxycycline Allergy Unknown ABD PAIN Verified 01/21/20 13:20 fluticasone Allergy Unknown UNK Verified 01/21/20 13:20 formoterol Allergy Unknown TACHYCARDIA, Verified 01/21/20 13:20 SOB salmeterol Allergy Unknown ANAPHYLAXIS Verified 01/21/20 13:20 morphine Allergy Unknown Verified 01/21/20 13:20 tiotropium Allergy Unknown Verified 01/21/20 13:20 [From Spiriva with HandiHaler] digoxin AdvReac Unknown BACK AND Verified 01/21/20 13:20 STOMACH PAIN metformin AdvReac Unknown MUSCLE Verified 01/21/20 13:20 ACHES IN BVACK AND KIDNEYS Sodium Propionate Allergy Unknown SHORTNESS Uncoded 01/21/20 13:20 OF BREATH Consultations Consult Cardiac Rehabilitation Routine Consult Cardiology Routine Hospital Course (1) Acute respiratory failure with hypoxia: 2nd to decompensated CHF - resolved with aggressive diuresis. Briefly needed BIPAP, was transitioned to [place] O2, and by the time of discharge his O2 had been weaned off. At time of transfer from [place] the patient was initially placed in ICU status but deemed an acceptable candidate to downgrade to our telemetry unit. Thus, he was only briefly in the ICU (just long enough to have critical care evaluate him and deem him candidate for the floor). (2) Acute on chronic systolic heart failure: Acute on chronic SYSTOLIC & DIASTOLIC CHF. Markedly improved with aggressive diuresis by way of bumex infusion. He returned to baseline dry weight on day of discharge. In the midst of diuresis his creatinine jeison to 2.3. Thus, on day of discharge, all diuretics were HELD that day only. He was asked to resume his bumex, however, 24 hours post-discharge at a dose of 2mg every morning. Additionally, due to low-normal BP, his coreg dose was reduced while hospitalized to 25mg BID. Hopefully within the week following discharge the dose can be titrated back to 37.5mg BID as previous. Defer that change to the CHF clinic. Lastly, because of the acute kidney injury, his Entresto was HELD at discharge. He was counseled he will need to have repeat labs including BMP at time of hospital follow-up with the CHF clinic. A decision can be made at that time about whether to resume Entresto or not. (3) Ischemic cardiomyopathy: with resulting chronic systolic CHF - severe (EF <20%) Echo this admission - * EF 15-20% * severe diastolic dysfunction * moderate MR * dilated IVC (4) Dyslipidemia: (5) History of ventricular tachycardia: has ICD in place cont amiodarone cont mexiletine monitoring stable during the admission (pacing only) (6) Peripheral neuropathy: (7) ICD (implantable cardioverter-defibrillator) in place: no recent discharges (8) Diabetes mellitus, type 2: Hba1c 7.3% cont glimepiride (9) Coronary artery disease: cont asa, BB, etc no ischemic symptoms during the stay peak troponin while here 0.181 - likely MYOCARDIAL DEMAND ISCHEMIA in setting of decompensated CHF (10) Hypertension: controlled throughout his stay (11) Stage III chronic kidney disease: baseline Cr 1.5 to 1.9 had superimposed ART from diuresis during this stay with discharge Cr of 2.3 Entresto to be held repeat BMP in 2-3 days post-discharge for stability (12) Renal mass: b/l needs f/u with urology for such has been deemed poor candidate for treatment due to his myriad of medical problems and in particular his severe systolic CHf (13) COPD (chronic obstructive pulmonary disease): not in exacerbation while here (14) Acute kidney injury: 2nd to diuresis discharge Cr 2.3 see discussion above Total Time Total Time Spent Total Time Spent (In Minutes): 45 Total Time Includes: Examination of the Patient, Discharge Planning and Medication Reconciliation Discharge Plan Discharge Items Patient Disposition: Home - Self-Care Reason For Visit: acute on chronic congestive heart failure Discharge Diagnosis: Difficulty breathing due to water retention in the lungs from acute on chronic congestive heart failure Activity: Resume your previous activity Activity Comment: as tolerated Non-emergency contact: Primary Care Provider and Trouble Lineman Call non-emergency contact if: you have any medication questions and your symptoms worsen Follow-up/Referrals: Camelia Barclay DO [Primary Care Provider] - 01/23/20 3:40 pm (Follow up at [facility] with Liza Givens PA-C on SundayJanuary 22 at 3:40 pm.) Monique Hi PA-C [Physician Platform Engineer] - 01/21/20 1:30 pm (Follow up at [facility] with Monique Hi PA-C on SundayJanuary 20 at 1:30 pm.) Diet: Carb Consistent or DM2 and Heart Healthy Fluids: 1500ml (6 cups) Addtl Attending Provider Instructions: You were treated for fluid/water retention in the lungs due to your congestive heart failure. The recent steroid injection for your shoulder, dietary indiscretion, and other factors likely led to the fluid build-up. Your weight is now 212.5 pounds. Your lungs are clear at time of discharge. In the midst of removing the fluid your kidney function level ("Creatinine") jeison to 2.3. You typically run in the 1.5 to 1.8 range. Recommendations: 1. HOLD YOUR BUMEX (bumetanide) TODAY. RESTART your bumetanide TOMORROW morning on 01/19/2020. TAKE 2mg daily starting tomorrow unless otherwise directed by Ms Hi in the CHF clinic. 2. LOWER your carvedilol to 25mg twice daily. You previously were taking 37.5mg each time. Again LOWER your carvedilol to 25mg twice daily. Again Ms Presleymae may make adjustments to this at time of follow-up. 3. HOLD/STOP your entresto for now. 4. Check your weight EVERY MORNING on the same scale. 5. Limit salt intake to no more than 2000mg (2grams) in 24 hours. 6. Limit fluid intake to 1500cc/day (1.5 liters). Additional instructions - Call 911 and go to the Emergency Room if: * You have tightness or pain in your chest that does not go away with rest or Nitroglycerin * You are very short of breath even with rest Call your doctor if any of the following symptoms or problems start or get worse: * Shortness of breath or difficulty breathing * Wake up at night short of breath * Chest pain * Cough * Swelling of your hands, fee, or legs * More fatigued or tired with your normal activity * Palpitations - sudden fast heart beats WEIGHT * Weigh yourself every morning after using the bathroom. * Use the same scale. * Wear the same amount of clothing. * Write your weight down on your chart. * Call your doctor if you gain more than 2-3 pounds in 1-2 days. This is usually a sign of fluid retention. MEDICATIONS * Use this discharge instruction sheet for instructions. * Take your medications at the time your doctor ordered. * Do not skip a dose of your medicines. * If you miss a dose of medicine, take as soon as possible, but DO NOT DOUBLE A DOSE. * Read your medicine information when you get home. * Know all of the side effects of your medicine. * Call your doctor's office if you have any side effects. * Be sure all of your doctors know what medicine and herbs you take (including cold, flu, and herbal medicine). * Pain Medicine: If you do not get relief from your pain, please call your doctor for help. Take the following with you to your follow-up doctor appointments: * Weight Chart * Medication List * List of questions Do not drink excessive alcohol, beer or wine. Pending Studies at Discharge: No Stand-Alone Forms: [facility], Smoking Cessation Medications and DC Order Prescriptions: Continued triamcinolone acetonide 0.1 % cream 1 appln TOP TID RF: 0 mexiletine 150 mg capsule 150 mg PO BID Qty: 180 RF: 1 isosorbide mononitrate 30 mg tablet extended release 24 hr 30 mg PO QAM Qty: 90 RF: 1 nystatin 100,000 unit/gram cream 1 appln TOP BID Qty: 15 RF: 1 glimepiride 2 mg tablet 2 mg PO DAILY RF: 0 amiodarone 200 mg tablet 200 mg PO DAILY RF: 0 nitroglycerin 0.4 mg tablet, sublingual 0.4 mg sublingual Q5M PRN (Reason: Chest Pain) RF: 0 aspirin [Ecotrin Low Strength] 81 mg Tablet,Delayed Release (Dr/Ec) 81 mg PO DAILY RF: 0 cholecalciferol (vitamin D3) 25 mcg (1,000 unit) tablet 2,000 units PO DAILY RF: 0 fluticasone propionate 50 mcg/actuation spray,suspension 2 sprays intranasal DAILY RF: 0 coenzyme Q10 100 mg capsule 200 mg PO DAILY RF: 0 Changed bumetanide 1 mg tablet 2 mg PO QAM Qty: 90 RF: 1 Discontinued sacubitril-valsartan 24-26 mg tablet 1 tab PO DAILY@1200 30 Days Qty: 30 RF: 3 carvedilol 12.5 mg tablet 37.5 mg PO BID RF: 0 No Action Bifidobacterium infantis See Rx Instructions PO DAILY RF: 0 carvedilol 12.5 mg tablet 37.5 mg PO BID Qty: 120 RF: 0 Entresto 24-26 mg tablet 1 tab PO DAILY Qty: 30 RF: 3 Hold Instructions: ART Discharge Orders: Discharge Order (Routine); Ordered 01/18/20 Ordered By: Johnathan Prasad Admission Data Admit Date/Time: 01/16/20 13:09 Attending Provider: Johnathan Prasad Admit Provider: Neto Carlson Primary Care Provider: Camelia Barclay Other Providers: Sam Agee ; George Acosta Other Interventions: Discharge Summary Assessment (RN) Last Done: 01/18/20 12:29 DC Date/Time DO NOT enter until pt leaves facility: 01/18/20 14:05 Coding Level of Care Code D/C Day Management >30 mins Diagnoses Acute respiratory failure with hypoxia J96.01 Acute on chronic systolic heart failure I50.23 Ischemic cardiomyopathy I25.5 Dyslipidemia E78.5 History of ventricular tachycardia Z86.79 Peripheral neuropathy G62.9 ICD (implantable cardioverter-defibrillator) in place Z95.810 Diabetes mellitus, type 2 E11.9 Coronary artery disease I25.10 Associated angina: without angina Coronary Disease-Associated Artery/Lesion type: [place] artery [place] vs. transplanted heart: [place] heart Hypertension I10 Hypertension type: essential hypertension Stage III chronic kidney disease N18.3 Renal mass N28.89 COPD (chronic obstructive pulmonary disease) J44.9 Acute kidney injury N17.9
--- NOTE | 2020-01-18 12:58 | Electrocardiogram Report ---
Test Reason : Blood Pressure : / mmHG Vent. Rate : 066 BPM Atrial Rate : 066 BPM P-R Int : 160 ms QRS Dur : 190 ms QT Int : 508 ms P-R-T Axes : 000 258 085 degrees QTc Int : 532 ms AV dual-paced rhythm Biventricular pacemaker detected Abnormal ECG When compared with ECG of 17-JAN-2020 06:49, Vent. rate has increased BY 6 BPM Confirmed by Cristian Jose ([id number]) on 01/18/2020 12:57:48 PM Referred By: REFERRED SELF Confirmed By:Cristian Jose
== END 2020-01-18 14:05 | disposition home or self-care (01) | DRG 291 ==
LOC: 1E 13:09 → SUATTDRO 13:09 → 2S 18:10

== ENCOUNTER 2020-03-22 21:58 | Inpatient (IN) ==
[2020-03-23] MEDS ORDERED: ICU PROTOCOL FOR HYPERGLYCEMIA PRN (00:44)
[2020-03-23 01:17] LABS: iSTAT Allen Test Pass; iSTAT Arterial Blood Gas HCO3 25 meg/L (19-24); iSTAT Arterial Blood Gas pCO2 54 mmHg (35-46); iSTAT Arterial Blood Gas pH 7.28 (7.35-7.45); iSTAT Arterial Blood Gas pO2 98 mmHg (80-95); iSTAT Carbon Dioxide 27 mmol/L (24-31); iSTAT FiO2 90 %; iSTAT Site R Radial
[2020-03-23 01:36] LABS: Basophils # (auto) 0.04 K/uL (0-0.2); Basophils % (auto) 0.2 %; Eosinophils # (auto) 0.01 K/uL (0-0.5); Eosinophils % (auto) 0.1 %; Hematocrit (blood only) 44.1 % (42-52); Hemoglobin 14.6 g/dL (14.0-18.0); Immature Granulocytes # (auto) 0.27 K/uL (0.00-0.02); Immature Granulocytes % (auto) 1.6 %; Lymphocytes # (auto) 1.36 K/uL (1.2-3.4); Lymphocytes % (auto) 8.2 %; Mean Corpuscular Hemoglobin 30.7 pg (25-34); Mean Corpuscular Hgb Conc 33.1 g/dL (32-36); Mean Corpuscular Volume 92.6 fL (80-100); Mean Platelet Volume 10.5 fL (7.4-10.4); Monocytes # (auto) 1.03 K/uL (0.11-0.59); Monocytes % (auto) 6.2 %; Neutrophils # (auto) 13.92 K/uL (1.4-6.5); Neutrophils % (auto) 83.7 %; Platelet Count 241 K/uL (130-400); RDW Coefficient of Variation 14.9 % (11.5-14.5); RDW Standard Deviation 50.3 fL (36.4-46.3); Red Blood Count 4.76 M/uL (4.7-6.1); White Blood Count 16.63 K/uL (4.8-10.8)
[2020-03-23] MEDS ORDERED: STAT IV Infusion **Titration per Protocol STA (01:42)
[2020-03-23] MEDS ORDERED: ACETAMINOPHEN 1,000 MG/100 ML VIAL IV PRN (01:42)
--- NOTE | 2020-03-23 01:49 | History & Physical Report ---
Date of Service March 23, 2020 Assessment & Plan (1) Respiratory failure: 64yo C male with history of COPD, CAD/ICM, CKD, DM, HTN, HLP presenting from [facility] with acute respiratory failure requiring intubation. Ddx to include acute exacerbation of CHF, COPD, less likely infectious etiology or Covid-19. 1. Neuro - patient intubated, sedated, nonfocal on limited neuro exam -Continue pain control with Fentanyl -Continue sedation with Propofol, titrate to RASS 0 - -1 2. Cardio - Patient with extensive cardiac history to include CAD, ICM with EF of 15-20% per echo in January 16, 2020, history of VT s/p Biventricular AICD, HTN, HLP. He has had multiple hospitalizations in the past for CHF exacerbation, last in December 2019 requiring MICU care (consult from 01/16/20) . He follows with Dr. Hagan of Cardiology, last seen on 01/29/20. Patients current symptoms of dyspnea and respiratory distress most likely secondary to acute decompensated CHF. Patient's endorses 2 weeks of progressive symptoms, increased use of intermittent O2 at home. She states that symptoms are similar to prior exacerbations of CHF. Possibly triggered by dietary indiscretion with increased Na and fluid intake. Patient intubated prior to arrival. Presently hemodynamically stable. Troponin negative. EKG with no acute ischemic findings. Patient presently 208#, dry weight of 205# per record review. Patient was previously on Entresto which was discontinued due to intolerance. He has also experienced symptomatic hypotension in the past with increased in medications for his CHF. -Lasix 40mg IV administered at [facility]. Patient given additional 40mg IV here -Closely monitor I/Os, daily weights -Consider Bumex IV if patient fails to respond to Lasix -Closely monitor renal function and electrolytes -Consider cardiology consultation -Device interrogation x 1 -Continue Amiodarone and Mexilitene at home doses -Continue Isosorbide mononitrate and Carvedilol -Continue ASA 3. Pulm - patient intubated for respiratory distress. ABG 7.28//98/25 performed on FiO2 80%. CXR with bilateral airspace disease, favor CHF. History of COPD/Asthma -Repeat ABG in AM -Nebs as needed -Covid-19 rule out 4. GI - No active issues -Protonix for GI ppx while mechanically ventilated 5. - Patient with CKD, baseline Cr reported to be 1.6 - 1.8. Worsening of renal function today with BUN=41 and Cr= 2.45. Hyperkalemia on initial labs - K=5.7. History of renal mass thought to be malignant - deemed inoperable due to underlying medical comorbidities. -Treatment of hyperkalemia with Insulin/D50/Calcium gluconate and Lasix -Repeat blood work in AM -Closely monitor renal function, electrolytes with aggressive diuresis -Avoid nephrotoxic agents -Renal dosing where needed for CrCl of 35 6. Heme - Neutrophil predominant leukocytosis. No obvious infiltrate on CXR. Procalcitonin negative. No fevers/chills but some sweats at home. H/H stable,no active bleed -Follow cultures -Hold empiric abx for now 7. ID - afebrile, HD stable, no obvious source of infection. Patient with history of HCV. MRSA+nares in the past -MOnitor CBC, leukocytosis -FOllow cultures 8. Endocrine - DM II with hyperglycemia -Insulin protocol per MICU -Hold oral glimepiride for now F/E/N - Diuresis as above. Treatment of hyperkalemia as above. NPO for now Ppx - Heparin Code - Full per discussion with patient's , Patsy Vee Dispo - MICU (2) Stage III chronic kidney disease: (3) Obstructive sleep apnea of adult: (4) Ischemic cardiomyopathy: (5) ICD (implantable cardioverter-defibrillator) in place: (6) Hypertension: (7) Dyslipidemia: (8) Diabetes mellitus, type 2: (9) Coronary artery disease: (10) COPD (chronic obstructive pulmonary disease): (11) Vitamin D deficiency: (12) Afib: Admission and Anticipated Discharge Date Admission Date: March 23, 2020 Anticipated date of discharge: 03/26/20 History of Present Illness Chief Complaint: Respiratory Failure Primary Care Provider: Camelia Barclay DO Claudio Vee is a 64yo C male with multiple medical problems to include Asthma/COPD on home O2 as needed, CAD with CHF/ICM - last EF 30-35% per echo in March 2019, BiV AICD in place. Patient presented to [facility] with complaint of SOB, progressively worsening x 2 days. On arrival he was afebrile, HD stable, tachypneic with RR of 24, saturating 93%. He was placed on BiPAP for increased work of breathing and ultimately intubated. Patient transferred to [facility] for MICU care. Per discussion with his , Patsy, patient has been having progressive dyspnea for the last two weeks. He has needed O2 more frequently at home. He woke up this morning and felt fine, he went fishing with his granddaughter. In the afternoon he became more short of breath requiring O2. He has had a cough productive for thick sputum. Denies fevers/chills/CP. No sick contacts or recent travel. No known contact with Covid-19 positive individuals. states that his presentation is quite similar to prior exacerbations of CHF. She states that he is compliant with his medications but has been eating a bit more salt and drinking more fluid recently. He has had some sweats and a 2# weight gain. Allergies Allergy/AdvReac Type Severity Reaction Status Date / Time budesonide Allergy Unknown TACHYCARDIA, Verified 01/23/20 14:54 SOB carbamazepine Allergy Unknown TACHYCARDIA, Verified 01/23/20 14:54 PANIC ATTACK cyclobenzaprine Allergy Unknown UNK Verified 01/23/20 14:54 doxycycline Allergy Unknown ABD PAIN Verified 01/23/20 14:54 fluticasone Allergy Unknown UNK Verified 01/23/20 14:54 formoterol Allergy Unknown TACHYCARDIA, Verified 01/23/20 14:54 SOB salmeterol Allergy Unknown ANAPHYLAXIS Verified 01/23/20 14:54 morphine Allergy Unknown Verified 01/23/20 14:54 tiotropium Allergy Unknown Verified 01/23/20 14:54 [From Spiriva with HandiHaler] digoxin AdvReac Unknown BACK AND Verified 01/23/20 14:54 STOMACH PAIN metformin AdvReac Unknown MUSCLE Verified 01/23/20 14:54 ACHES IN BVACK AND KIDNEYS Sodium Propionate Allergy Unknown SHORTNESS Uncoded 01/23/20 14:54 OF BREATH Home Medications Home Medications Medication Instructions Recorded Confirmed Type amiodarone 200 mg PO DAILY 07/22/19 03/23/20 History aspirin [Ecotrin Low Strength] 81 mg PO DAILY 07/22/19 03/23/20 History glimepiride 2 mg PO DAILY 07/22/19 03/23/20 History nitroglycerin 0.4 mg SUBLINGUAL Q5M PRN 07/22/19 03/23/20 History cholecalciferol (vitamin D3) 25 2,000 units PO DAILY tab 11/05/19 03/23/20 History mcg (1,000 unit) tablet coenzyme Q10 100 mg capsule 200 mg PO DAILY cap 11/05/19 03/23/20 History fluticasone propionate 50 2 sprays INTRANASAL DAILY ml 11/05/19 03/23/20 History mcg/actuation nasal spray,suspension isosorbide mononitrate 30 mg 30 mg PO QAM #90 tab 11/05/19 03/23/20 Rx tablet,extended release 24 hr mexiletine 150 mg capsule 150 mg PO BID #180 cap 11/05/19 03/23/20 Rx nystatin 100,000 unit/gram topical 1 appln TOP BID #15 gm 11/05/19 03/23/20 Rx cream triamcinolone acetonide 0.1 % 1 appln TOP TID 11/05/19 03/23/20 History topical cream bumetanide 2 mg PO QAM #90 tab 01/18/20 03/23/20 Rx Bifidobacterium infantis See Rx Instructions PO DAILY 01/21/20 03/23/20 History carvedilol 12.5 mg tablet 37.5 mg PO BID #120 tab 01/21/20 03/23/20 Rx psyllium 1 tbs PO TID gm 01/23/20 03/23/20 History tramadol 50 mg tablet 50 mg PO Q6H PRN #30 tab 01/23/20 03/23/20 Rx ammonium lactate 12 % lotion 1 appln TOP DAILY PRN #227 gm 02/25/20 Rx Past Med/Surg History Medical History (Updated 03/23/20 @ 02:09 by Luz Elena Faith DO) Afib (Chronic) Allergic rhinitis (Acute) Asthma (Acute) Cervical radiculopathy (Acute) Chronic systolic heart failure COPD (chronic obstructive pulmonary disease) Coronary artery disease Degenerative cervical disc Diabetes mellitus, type 2 Dyslipidemia Hepatitis C History of ventricular tachycardia Hypertension ICD (implantable cardioverter-defibrillator) in place Impotence, organic Ischemic cardiomyopathy Nephrolithiasis Obesity Obstructive sleep apnea of adult Osteoarthritis Peripheral neuropathy Renal mass Respiratory failure Stage III chronic kidney disease Vitamin D deficiency (Chronic) Surgical History History of coronary artery stent placement History of implantable cardioverter-defibrillator (ICD) placement Social History Preferred Language: Congolese Communication Ability: Effective Visual Impairment: No Limitations Hearing Ability: Normal Assistant Project Manager Required: No Beliefs That Will Affect Care: None marital status: Current Living Situation: Spouse Current Living Situation Comment: with & son current occupational status: retired Feels Safe at Home: Yes Smoking Status: Unknown if ever smoked Hx Alcohol Use: No Hx Substance Use: No caffeine: No Dental Care, Regularly: No Physical Activity Frequency: 5-6 Times per Week Physical Activity Frequency Comment: walking Seatbelt Use: always Sunscreen Use: No Review of Systems Review of Systems: Unobtainable due to endotracheal tube Physical Exam Physical Exam: General: patient intubated, sedated, NAD Skin: warm, dry, intact, no rashes or lesions HEENT: NC/AT, PERRL, anicteric sclera, conjunctiva without injection, external ear normal to inspection and nontender, nares patent, moist mucus membranes, dentition intact, no oropharyngeal lesions, neck supple, trachea midline, no LAD, no thyromegaly, no JVD Heart: +S1/S2, regular, device in left chest Lungs: coarse breath sounds Abd: soft, NT/ND, no masses/organomegaly/ascites Ext: cool, 2+ pulses in UE/LE bilaterally, no clubbing/cyanosis or edema Neuro: sedated, nonfocal Results & Data Results & Data ([facility]) Vital Signs (Past 12 Hours) Vital Signs Temp Pulse Pulse Resp BP Pulse Ox Pulse Ox 03/23/20 01:20 69 19 96 03/23/20 01:08 36.6 C 60 18 161/69 H 94 03/23/20 00:47 95 03/23/20 00:44 36.6 C 60 18 161/69 H 95 Laboratory Results Lab Results 03/23/20 03/23/20 03/23/20 Range/Units 01:03 01:18 01:18 WBC 16.63 H (4.8-10.8) K/uL RBC 4.76 (4.7-6.1) M/uL Hgb 14.6 (14.0-18.0) g/dL Hct 44.1 (42-52) % MCV 92.6 (80-100) fL MCH 30.7 (25-34) pg MCHC 33.1 (32-36) g/dL RDW Std Deviation 50.3 H (36.4-46.3) fL RDW Coeff of Tristan 14.9 H (11.5-14.5) % Plt Count 241 (130-400) K/uL MPV 10.5 H (7.4-10.4) fL Immature Gran % (Auto) 1.6 % Neut % (Auto) 83.7 % Lymph % (Auto) 8.2 % Grainger % (Auto) 6.2 % Eos % (Auto) 0.1 % Baso % (Auto) 0.2 % Immature Gran # (Auto) 0.27 H (0.00-0.02) K/uL Neut # (Auto) 13.92 H (1.4-6.5) K/uL Lymph # (Auto) 1.36 (1.2-3.4) K/uL Grainger # (Auto) 1.03 H (0.11-0.59) K/uL Eos # (Auto) 0.01 (0-0.5) K/uL Baso # (Auto) 0.04 (0-0.2) K/uL Sample Site R Radial POC pH 7.28 L (7.35-7.45) POC pCO2 54 H (35-46) mmHg POC pO2 98 H (80-95) mmHg POC HCO3 25 H (19-24) hermann/L POC Total CO2 27 (24-31) mmol/L POC Base Excess -2.0 (-9-1.8) hermann/L POC ABG O2 Sat 96.0 H (90-95) % Maykel Test Pass O2 Delivery Device Ventilator POC O2 Rate 18 POC FiO2 90 % Tidal Volume 500 PEEP 5 Sodium 139 (136-145) mmol/L Potassium 5.7 H (3.5-5.1) mmol/L Chloride 107 (98-107) mmol/L Carbon Dioxide 23 (21-32) mmol/L Anion Gap 9.0 (3-11) BUN 41 H (7-18) mg/dl Creatinine 2.45 H (0.6-1.4) mg/dl Est Cr Clr Drug Dosing 35.4 ml/min Est GFR ( Amer) 30.6 Est GFR (Non-Af Amer) 26.4 BUN/Creatinine Ratio 16.6 (10-20) Glucose 193 H (70-99) mg/dl Lactate (0.4-2.0) mmol/L Calcium 8.6 (8.5-10.1) mg/dl Phosphorus 5.4 H (2.5-4.9) mg/dl Magnesium 2.6 H (1.8-2.4) mg/dl Troponin I < 0.015 (0-0.045) ng/ml NT-Pro-B Natriuret Pep 8193 H (0-900) pg/ml 03/23/20 Range/Units 01:18 WBC (4.8-10.8) K/uL RBC (4.7-6.1) M/uL Hgb (14.0-18.0) g/dL Hct (42-52) % MCV (80-100) fL MCH (25-34) pg MCHC (32-36) g/dL RDW Std Deviation (36.4-46.3) fL RDW Coeff of Tristan (11.5-14.5) % Plt Count (130-400) K/uL MPV (7.4-10.4) fL Immature Gran % (Auto) % Neut % (Auto) % Lymph % (Auto) % Grainger % (Auto) % Eos % (Auto) % Baso % (Auto) % Immature Gran # (Auto) (0.00-0.02) K/uL Neut # (Auto) (1.4-6.5) K/uL Lymph # (Auto) (1.2-3.4) K/uL Grainger # (Auto) (0.11-0.59) K/uL Eos # (Auto) (0-0.5) K/uL Baso # (Auto) (0-0.2) K/uL Sample Site POC pH (7.35-7.45) POC pCO2 (35-46) mmHg POC pO2 (80-95) mmHg POC HCO3 (19-24) hermann/L POC Total CO2 (24-31) mmol/L POC Base Excess (-9-1.8) hermann/L POC ABG O2 Sat (90-95) % Maykel Test O2 Delivery Device POC O2 Rate POC FiO2 % Tidal Volume PEEP Sodium (136-145) mmol/L Potassium (3.5-5.1) mmol/L Chloride (98-107) mmol/L Carbon Dioxide (21-32) mmol/L Anion Gap (3-11) BUN (7-18) mg/dl Creatinine (0.6-1.4) mg/dl Est Cr Clr Drug Dosing ml/min Est GFR ( Amer) Est GFR (Non-Af Amer) BUN/Creatinine Ratio (10-20) Glucose (70-99) mg/dl Lactate 1.2 (0.4-2.0) mmol/L Calcium (8.5-10.1) mg/dl Phosphorus (2.5-4.9) mg/dl Magnesium (1.8-2.4) mg/dl Troponin I (0-0.045) ng/ml NT-Pro-B Natriuret Pep (0-900) pg/ml Diagnostic Findings CXR - BiVentricular ICD in place, ETT in place, bilateral airspace opacities, bilateral pleural effusions Code Status & VTE Plan Code Status FULL VTE Prophylaxis Plan VTE Prophylaxis will be ordered: Yes Critical Care Time Critical Care Time: Yes Total Critical Care Time: 60 PG Care Time/CCT Total # of Minutes Spent Total Time Spent with Patient: Total time spent is greater than 50% in coordination of care (as documented) at patient's floor/unit and/or counseling patient: Critical Care Time: Yes Total Critical Care Time: 60 Coding Level of Care Code 59761 Initial Inpt Care Lvl 3 Diagnoses Respiratory failure J96.90 Stage III chronic kidney disease N18.3 Obstructive sleep apnea of adult G47.33 Ischemic cardiomyopathy I25.5 ICD (implantable cardioverter-defibrillator) in place Z95.810 Hypertension I10 Hypertension type: essential hypertension Dyslipidemia E78.5 Diabetes mellitus, type 2 E11.9 Coronary artery disease I25.10 Associated angina: without angina Coronary Disease-Associated Artery/Lesion type: [place] artery [place] vs. transplanted heart: [place] heart COPD (chronic obstructive pulmonary disease) J44.9 Vitamin D deficiency E55.9 Afib I48.91 Additional Codes Critical Care Time - Critical Care Time: Yes ([id number]) Time Spent (min) 60 (1) Coronary artery disease Associated angina: without angina Coronary Disease-Associated Artery/Lesion type: [place] artery [place] vs. transplanted heart: [place] heart Qualified Code(s): I25.10 - Atherosclerotic heart disease of [place] coronary artery without angina pectoris (2) Hypertension Hypertension type: essential hypertension Qualified Code(s): I10 - Essential (primary) hypertension
[2020-03-23 01:53] LABS: BUN Creatinine Ratio 16.6 (10-20); Blood Urea Nitrogen 41 mg/dl (7-18); Calcium 8.6 mg/dl (8.5-10.1); Carbon Dioxide 23 mmol/L (21-32); Chloride 107 mmol/L (98-107); Creatinine Clr Calc Pharmacy 35.4 ml/min; Est GFR (African American) 30.6; Est GFR (Non-African American) 26.4; Glucose 193 mg/dl (70-99); Magnesium 2.6 mg/dl (1.8-2.4); Potassium 5.7 mmol/L (3.5-5.1); Sodium 139 mmol/L (136-145)
[2020-03-23 01:58] LABS: NT Pro B Type Natriuretic Pept 8193 pg/ml (0-900); Phosphorus 5.4 mg/dl (2.5-4.9); Troponin I < 0.015 ng/ml (0-0.045)
[2020-03-23] MEDS ORDERED: CALCIUM GLUCONATE 10% 1,000 MG in SODIUM CHLORIDE 0.9% 50 ML IV ONE (02:15)
[2020-03-23] MEDS ORDERED: DEXTROSE 50% 50 ML SYRINGE IV ONE (02:15)
[2020-03-23] MEDS ORDERED: INSULIN HUMAN REGULAR PER UNIT 8 UNITS in SYRINGE 7.92 ML IV ONE (02:15)
[2020-03-23] MEDS ORDERED: FUROSEMIDE 40 MG in SYRINGE 0 ML IV ONE ×2 (02:15→14:00)
[2020-03-23] MEDS: propofoL 1,000 MG/100 ML VIAL IV SCH ×4 (02:22→19:48)
[2020-03-23] MEDS: fentaNYL citrate 100 MCG/2 ML VIAL IV PRN ×2 (04:17→21:12)
--- NOTE | 2020-03-23 04:55 | Critical Care Consultation ---
Date of Consultation March 23, 2020 Assessment & Plan (1) Admitted to intensive care unit: Reason Critically Ill: 64-year-old male in acute hypoxic respiratory failure with hypercapnia 2/2 CHF exacerbation with underlying COPD. Requiring endotracheal intubation with close monitoring. NEURO - * CAM ICU: NEGATIVE * Sedation: Propofol gtt * Analgesia: Fentanyl PRN CARDIAC/VASCULAR - * Acute CHF exacerbation: * Concerning to the patient with severely reduced EF secondary to ischemic cardiomyopathy with AICD in place. * Initially received 40 mg IV Lasix at outside hospital. * Will add an additional 40 given the patient's renal function. * Chest x-ray obtained here does demonstrate moderate pulmonary edema. * Blood pressures have been labile which precludes the use of nitrates at this time. * Hypertension, hyperlipidemia, coronary artery disease. * Hold home medications for now. * Monitor on telemetry. RESPIRATORY - * Acute hypoxic respiratory failure with hypercapnia: * Likely combination of acute CHF exacerbation with underlying COPD. * Requiring endotracheal intubation. * Initial ABG demonstrates respiratory acidosis. * Ventilator settings to be adjusted to responsiveness. * Active diuresis. * Will increase PEEP for positive pressure support. * Initially, the patient was placed in isolation in the setting of COVID-19 pandemic secondary to unknown status and coming from an outside facility in the setting of respiratory failure with worsening shortness of breath over the last 2 weeks. Clinically, the patient has a leukocytosis. He does not have a leukopenia. Chest x-ray more consistent with pulmonary edema and patient with significant past medical history. He has had no fevers or upper respiratory symptoms symptoms recently. It is unlikely the patient has COVID-19. Will defer to my attending physician for removal of isolation precautions pending a.m. evaluation. GI/NUTRITION - * OG tube in place. * N.p.o. at this time. RENAL/LYTES - * Hyperkalemia: * Have noted this previously on admissions. * Treated with calcium gluconate, insulin, dextrose. * Trend lytes. * IVF: Hold at this time. - * Levy in place - Strict I&Os. ENDO - * DMII * BSGs per unit protocol. ISS --> gtt per unit policy. HEME - * Stable H&H ID - * Patient does have moderate pulmonary edema on chest x-ray, however he is without fever recent upper respiratory infection. He has not had vomiting. His exam is more consistent with volume overload. Procalcitonin is negative. Likely not infectious in nature. LINES/IV ACCESS - * PIVs x2 * ET tube * Levy DVT PROPHYLAXIS - * Heparin * SCDs I have personally spent 35 minutes of critical care time in the direct management of this patient. This is a life/limb threatening event. This includes time spent evaluating patient, direct bedside care, chart review, placing orders, interpretation of diagnostic studies, discussion with consultants, patient, and family members, as well as other required patient management activities. This time is exclusive of all separately billable procedures, and teaching time and separate from and in addition to any other critical care service time. Thank you for allowing us to participate in the care of this patient. Please refer to my attending physician's documentation for any further recommendations. (2) Respiratory failure: (3) Chronic systolic heart failure: (4) Dyslipidemia: (5) Ischemic cardiomyopathy: (6) ICD (implantable cardioverter-defibrillator) in place: (7) Diabetes mellitus, type 2: (8) Stage III chronic kidney disease: Supervising Physician Co-Signing Physician Notes Patient seen and examined. EMR reviewed. Discussed with critical care ROCHELLE. Discussed on multidisciplinary rounds and with cardiology at bedside. Patient appears to be suffering an exacerbation of heart failure with pulmonary edema. He is on minimal vent settings. He is hemodynamically stable. He is diuresing appropriately. Continue mechanical ventilation for today and assess for possible SBT in the morning. Continue diuretics and goal-directed therapy for his heart failure. Appreciate cardiology input. Will keep n.p.o. for now as we are hopeful that he will be able to extubate within the next 24 hours. We will check tracheal aspirate for culture although my suspicion for infection is somewhat low. His coronavirus assay was negative so precautions will be discontinued. Discussed briefly with patient at bedside and with ICU bedside nurse. History of Present Illness Attending Physician: Luz Elena Faith DO History of Present Illness Patient is a 64-year-old male with a significant past medical history of ischemic cardiomyopathy with an EF of 30 to 35%, CHF with recurrent exace rbation, COPD, ANDREW, hypertension, hyperlipidemia, diabetes mellitus, type II, coronary artery disease. Per provider notes and conversations with colleagues, patient apparently had been having shortness of breath over the last few weeks. He has had to increase the use of his home oxygen. He became increasingly short of breath last evening which required presentation to the [place] [facility]. He was initially placed on BiPAP and had a chest x-ray performed which was concerning for volume overload. He eventually required intubation after failed noninvasive positive pressure techniques. He was flown to this facility via [facility] for further evaluation and management. Per family, he has not been ill recently. No sequela upper respiratory symptoms. No recent travel. No contact with COVID-19 positive individuals. Allergies Allergy/AdvReac Type Severity Reaction Status Date / Time budesonide Allergy Unknown TACHYCARDIA, Verified 01/23/20 14:54 SOB carbamazepine Allergy Unknown TACHYCARDIA, Verified 01/23/20 14:54 PANIC ATTACK cyclobenzaprine Allergy Unknown UNK Verified 01/23/20 14:54 doxycycline Allergy Unknown ABD PAIN Verified 01/23/20 14:54 fluticasone Allergy Unknown UNK Verified 01/23/20 14:54 formoterol Allergy Unknown TACHYCARDIA, Verified 01/23/20 14:54 SOB salmeterol Allergy Unknown ANAPHYLAXIS Verified 01/23/20 14:54 morphine Allergy Unknown Verified 01/23/20 14:54 tiotropium Allergy Unknown Verified 01/23/20 14:54 [From Spiriva with HandiHaler] digoxin AdvReac Unknown BACK AND Verified 01/23/20 14:54 STOMACH PAIN metformin AdvReac Unknown MUSCLE Verified 01/23/20 14:54 ACHES IN BVACK AND KIDNEYS Sodium Propionate Allergy Unknown SHORTNESS Uncoded 01/23/20 14:54 OF BREATH Home Medications Home Medications Medication Instructions Recorded Confirmed Type amiodarone 200 mg PO DAILY 07/22/19 03/23/20 History aspirin [Ecotrin Low Strength] 81 mg PO DAILY 07/22/19 03/23/20 History glimepiride 2 mg PO DAILY 07/22/19 03/23/20 History nitroglycerin 0.4 mg SUBLINGUAL Q5M PRN 07/22/19 03/23/20 History cholecalciferol (vitamin D3) 25 2,000 units PO DAILY tab 11/05/19 03/23/20 History mcg (1,000 unit) tablet coenzyme Q10 100 mg capsule 200 mg PO DAILY cap 11/05/19 03/23/20 History fluticasone propionate 50 2 sprays INTRANASAL DAILY ml 11/05/19 03/23/20 History mcg/actuation nasal spray,suspension isosorbide mononitrate 30 mg 30 mg PO QAM #90 tab 11/05/19 03/23/20 Rx tablet,extended release 24 hr mexiletine 150 mg capsule 150 mg PO BID #180 cap 11/05/19 03/23/20 Rx nystatin 100,000 unit/gram topical 1 appln TOP BID #15 gm 11/05/19 03/23/20 Rx cream triamcinolone acetonide 0.1 % 1 appln TOP TID 11/05/19 03/23/20 History topical cream bumetanide 2 mg PO QAM #90 tab 01/18/20 03/23/20 Rx Bifidobacterium infantis See Rx Instructions PO DAILY 01/21/20 03/23/20 History carvedilol 12.5 mg tablet 37.5 mg PO BID #120 tab 01/21/20 03/23/20 Rx psyllium 1 tbs PO TID gm 01/23/20 03/23/20 History tramadol 50 mg tablet 50 mg PO Q6H PRN #30 tab 01/23/20 03/23/20 Rx ammonium lactate 12 % lotion 1 appln TOP DAILY PRN #227 gm 02/25/20 Rx Patient History Medical History Afib (Chronic) Allergic rhinitis (Acute) Asthma (Acute) Cervical radiculopathy (Acute) Chronic systolic heart failure COPD (chronic obstructive pulmonary disease) Coronary artery disease Degenerative cervical disc Diabetes mellitus, type 2 Dyslipidemia Hepatitis C History of ventricular tachycardia Hypertension ICD (implantable cardioverter-defibrillator) in place Impotence, organic Ischemic cardiomyopathy Nephrolithiasis Obesity Obstructive sleep apnea of adult Osteoarthritis Peripheral neuropathy Renal mass Respiratory failure Stage III chronic kidney disease Vitamin D deficiency (Chronic) Surgical History History of coronary artery stent placement History of implantable cardioverter-defibrillator (ICD) placement Family History Unknown Cardiac disorder Hypertension Diabetes Father Myocardial infarction Mother Myocardial infarction Denies family history of Ovarian cancer Prostate cancer Breast cancer Colorectal cancer Social History Preferred Language: Macedonian Communication Ability: Effective Visual Impairment: No Limitations Hearing Ability: Normal 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 Beliefs That Will Affect Care: None marital status: Current Living Situation: Spouse Current Living Situation Comment: with & son current occupational status: retired Feels Safe at Home: Yes Smoking Status: Unknown if ever smoked Hx Alcohol Use: No Hx Substance Use: No caffeine: No Dental Care, Regularly: No Physical Activity Frequency: 5-6 Times per Week Physical Activity Frequency Comment: walking Seatbelt Use: always Sunscreen Use: No Review of Systems Review of Systems: Unobtainable due to endotracheal tube Physical Exam Physical Exam: VITAL SIGNS - Vital signs and nursing notes were reviewed. GENERAL - 64-year-old male appearing his stated age who is in no acute distress. Intubated and sedated. HEAD - NC/AT. EYES - PERRL with EOMI bilaterally. Sclera anicteric. EARS - No deformities of external structures noted on gross examination bilaterally. NOSE - Midline and without cyanosis. No epistaxis or purulent drainage noted. MOUTH/OROPHARYNX - ET Tube in place. Without perioral cyanosis. NECK - Neck with FROM. LUNGS - Breath sounds reported as diminished throughout. CARDIAC - RRR with S1/S2. No murmur, rubs, or gallops appreciated. ABDOMEN - Abdominal contour obese without pulsations or visible masses. No tenderness, palpable masses, hepatosplenomegaly, or ascites noted. EXTREMITIES - No clubbing or peripheral cyanosis. No pretibial edema present. +3/5 radial and dorsalis pedis pulses palpated throughout. NEUROLOGIC -no focal neurological deficits. Unable to assess secondary to level of sedation. Results & Data Results & Data ([facility]) Vital Signs (Past 12 Hours) Vital Signs Temp Pulse Pulse Resp BP Pulse Ox Pulse Ox 03/23/20 01:20 69 19 96 03/23/20 01:08 36.6 C 60 18 161/69 H 94 03/23/20 00:47 95 03/23/20 00:44 36.6 C 60 18 161/69 H 95 Coding Level of Care Code Critical Care 1st 30-74 mins Diagnoses Admitted to intensive care unit Z78.9 Respiratory failure J96.90 Chronic systolic heart failure I50.22 Dyslipidemia E78.5 Ischemic cardiomyopathy I25.5 ICD (implantable cardioverter-defibrillator) in place Z95.810 Diabetes mellitus, type 2 E11.9 Stage III chronic kidney disease N18.3 Time Spent (min) 60
[2020-03-23] MEDS: HEPARIN SOD 5,000 UNIT/0.5 ML VIAL SQ SCH ×3 (05:12→21:08)
[2020-03-23 05:39] LABS: iSTAT Allen Test Pass; iSTAT Arterial Blood Gas HCO3 26 meg/L (19-24); iSTAT Arterial Blood Gas pCO2 47 mmHg (35-46); iSTAT Arterial Blood Gas pH 7.35 (7.35-7.45); iSTAT Arterial Blood Gas pO2 48 mmHg (80-95); iSTAT Carbon Dioxide 27 mmol/L (24-31); iSTAT FiO2 80 %; iSTAT Site L Radial
[2020-03-23 06:09] LABS: iSTAT Allen Test Pass; iSTAT Arterial Blood Gas HCO3 25 meg/L (19-24); iSTAT Arterial Blood Gas pCO2 43 mmHg (35-46); iSTAT Arterial Blood Gas pH 7.38 (7.35-7.45); iSTAT Arterial Blood Gas pO2 132 mmHg (80-95); iSTAT Carbon Dioxide 27 mmol/L (24-31); iSTAT FiO2 80 %; iSTAT Site L Radial
[2020-03-23 06:41] LABS: BUN Creatinine Ratio 17.9 (10-20); Calcium 8.7 mg/dl (8.5-10.1); Creatinine Clr Calc Pharmacy 40.2 ml/min; Est GFR (African American) 35.7; Est GFR (Non-African American) 30.8; Potassium 3.9 mmol/L (3.5-5.1)
--- NOTE | 2020-03-23 06:43 | XRay Report ---
XR chest 1V portable CLINICAL HISTORY: 64 years-old Male presenting with ETT, respiratory distress. TECHNIQUE: Portable upright AP view of the chest was obtained. COMPARISON: 01/16/2020. FINDINGS: Suboptimal image quality due to body habitus and underpenetration. Endotracheal tube terminates in th e midthoracic trachea approximately 6 cm from the katelin. Nasogastric tube courses towards the diaphr agm though the terminus is not visualized. Numerous external overlying leads. Left subclavian implant ed cardiac defibrillator with leads to the right atrium, right ventricle, and left ventricle via the coronary sinus. The cardiac silhouette appears enlarged. Extensive perihilar/central dense opacities new from prior, right greater than left. Pulmonary vascular prominence. Mildly low lung volumes. Unde rlying pleural effusions not excluded. No pneumothorax. IMPRESSION: 1. Appropriately positioned endotracheal tube. 2. Suboptimally visualized nasogastric tube; terminus not visualized. Intraesophageal location canno t be excluded. 3. Interval development of severe perihilar/central predominant infiltrates, right greater than left . This could represent severe pulmonary edema, diffuse alveolar damage, or multifocal pneumonia. 4. Cardiomegaly with volume overload. ACT 112: Negative or not required by law. Electronically signed by: Truong Pradhan M.D. 03/23/2020 6:42 AM
[2020-03-23] MEDS: AMIODARONE 200 MG TAB PO SCH (07:50)
[2020-03-23] MEDS: carvediloL 12.5 MG TAB PO SCH ×2 (07:51→21:07)
[2020-03-23] MEDS: MEXILETINE HCL 150 MG CAPSULE PO SCH ×2 (07:57→21:07)
[2020-03-23] MEDS ORDERED: ASPIRIN 81 MG ECTAB PO SCH (09:00)
[2020-03-23] MEDS ORDERED: PANTOprazole 40 MG TAB PO SCH (09:00)
[2020-03-23] MEDS ORDERED: ISOSORBIDE MONO EXTENDED REL 30 MG TABCR PO SCH (09:00)
[2020-03-23] MEDS: PROPOFOL BOLUS FROM BAG IV PRN ×2 (09:26→14:24)
--- NOTE | 2020-03-23 10:11 | XRay Report ---
XR chest 1V portable CLINICAL HISTORY: Respiratory failure. COMPARISON STUDY: Chest radiograph January 16, 2020 and chest radiograph March 23, 2020 1:03 AM. FINDINGS: The tip of the endotracheal tube is difficult to visualize but is approximately 5.1 cm abov e the katelin. Tip of nasogastric tube is below the lower aspect of this image but at least within the body of the stomach. A left subclavian biventricular pacer/AICD is in place. There is no pneumothora x. A small right pleural effusion is noted. Interstitial thickening and bilateral opacities have impr huseyin since prior exam. Cardiomegaly is noted. IMPRESSION: 1. Tip of endotracheal tube difficult to visualize but approximately 5.1 cm above the katelin. 2. Extensive bilateral airspace opacities and interstitial thickening, improved since prior exam. The findings may reflect pulmonary edema or bilateral pneumonia. 3. Small right pleural effusion. No pneumothorax. ACT 112: Negative or not required by law. Electronically signed by: Jalil Worley M.D. 03/23/2020 10:10 AM
[2020-03-23] MEDS ORDERED: PANTOprazole 40 MG in SYRINGE 0 ML IV SCH (11:00)
--- NOTE | 2020-03-23 12:04 | Cardiology Consultation ---
Date of Consultation March 23, 2020 Assessment & Plan (1) Acute systolic (congestive) heart failure: Decompensation most likely attributable to limited dietary compliance, absence of chest pain and negative troponin weigh against significant ischemic component. No evidence of rhythm disturbance as a contributing factor either. Patient is diuresing well, prerenal azotemia and chest x-ray improving, hemodynamics favorable. Agree with current management, plan is to continue diuresis for another 24 hours before attempting extubation. Will need to address increased adrenergic drive during the weaning phase through either prompt extubation or aggressive intravenous afterload reduction given his very poor cardiac reserve (EF 15-20%) and low likelihood of tolerating any significant or sustained hypertension. (2) Respiratory failure: Ventilator management as per Dr. Hutchins (3) Chronic systolic heart failure: Entresto was discontinued last hospitalization due to renal insufficiency, the patient was not inclined to restart this when he was seen in follow-up. Similarly, he is not on an CLIFTON/ARB due to concerns about variable renal function. He seems to be tolerating his usual dose of carvedilol (37.5 mg twice daily). (4) Ischemic cardiomyopathy: See "chronic systolic heart failure" above. (5) Coronary artery disease: Remote stenting, subsequent evaluation showed "inoperable" coronary disease. No evidence of ongoing ischemia currently. Continue aspirin and isosorbide. (6) ICD (implantable cardioverter-defibrillator) in place: No evidence of recent discharge or recurrent dysrhythmias. (7) Hypertension: Could add alpha-juanito (such as terazocin) if hypertension becomes an issue, which it has not so far. (8) History of ventricular tachycardia: Continue current dose of amiodarone and mexiletine. History of Present Illness Requesting Physician: Tito Hutchins MD Attending Physician: Mayte Magana MD History of Present Illness 64-year-old man with hypertension, mild to moderate mitral regurgitation, ventricular tachycardia (amiodarone and mexiletine), chronic stable angina pectoris, chronic systolic CHF, ischemic cardiomyopathy (30-35%, March 2019, inoperable coronary artery disease, 20% December 2019), and biventricular ICD ([facility] 2016) who was admitted early 03/23/2020 with decompensated congestive heart failure requiring intubation/mechanical ventilation. He was last hospitalized for congestive heart failure 2 months ago, treated with BiPAP and aggressive diuresis. Creatinine transiently increased from 1.7 to 2.4 before returning to baseline. Patient had noted increasing dyspnea over a period of weeks, no anginal symptoms during this time and no evidence of ICD shocks. He had apparently not been rigidly adhering to a low sodium diet. Good diuresis overnight. He was awake and alert but still mechanically ventilated this morning. He denied any chest pain. Current chest x-ray showed some improvement from admission very early today. Rhythm has been electronically paced and consistently near 60 bpm. BP variable but currently normotensive and favorable. Allergies Allergy/AdvReac Type Severity Reaction Status Date / Time budesonide Allergy Unknown TACHYCARDIA, Verified 01/23/20 14:54 SOB carbamazepine Allergy Unknown TACHYCARDIA, Verified 01/23/20 14:54 PANIC ATTACK cyclobenzaprine Allergy Unknown UNK Verified 01/23/20 14:54 doxycycline Allergy Unknown ABD PAIN Verified 01/23/20 14:54 fluticasone Allergy Unknown UNK Verified 01/23/20 14:54 formoterol Allergy Unknown TACHYCARDIA, Verified 01/23/20 14:54 SOB salmeterol Allergy Unknown ANAPHYLAXIS Verified 01/23/20 14:54 morphine Allergy Unknown Verified 01/23/20 14:54 tiotropium Allergy Unknown Verified 01/23/20 14:54 [From Spiriva with HandiHaler] digoxin AdvReac Unknown BACK AND Verified 01/23/20 14:54 STOMACH PAIN metformin AdvReac Unknown MUSCLE Verified 01/23/20 14:54 ACHES IN BVACK AND KIDNEYS Sodium Propionate Allergy Unknown SHORTNESS Uncoded 01/23/20 14:54 OF BREATH Home Medications Home Medications Medication Instructions Recorded Confirmed Type amiodarone 200 mg PO DAILY 07/22/19 03/23/20 History aspirin [Ecotrin Low Strength] 81 mg PO DAILY 07/22/19 03/23/20 History glimepiride 2 mg PO DAILY 07/22/19 03/23/20 History nitroglycerin 0.4 mg SUBLINGUAL Q5M PRN 07/22/19 03/23/20 History cholecalciferol (vitamin D3) 25 2,000 units PO DAILY tab 11/05/19 03/23/20 History mcg (1,000 unit) tablet coenzyme Q10 100 mg capsule 200 mg PO DAILY cap 11/05/19 03/23/20 History fluticasone propionate 50 2 sprays INTRANASAL DAILY ml 11/05/19 03/23/20 H istory mcg/actuation nasal spray,suspension isosorbide mononitrate 30 mg 30 mg PO QAM #90 tab 11/05/19 03/23/20 Rx tablet,extended release 24 hr mexiletine 150 mg capsule 150 mg PO BID #180 cap 11/05/19 03/23/20 Rx nystatin 100,000 unit/gram topical 1 appln TOP BID #15 gm 11/05/19 03/23/20 Rx cream triamcinolone acetonide 0.1 % 1 appln TOP TID 11/05/19 03/23/20 History topical cream bumetanide 2 mg PO QAM #90 tab 01/18/20 03/23/20 Rx Bifidobacterium infantis See Rx Instructions PO DAILY 01/21/20 03/23/20 History carvedilol 12.5 mg tablet 37.5 mg PO BID #120 tab 01/21/20 03/23/20 Rx psyllium 1 tbs PO TID gm 01/23/20 03/23/20 History tramadol 50 mg tablet 50 mg PO Q6H PRN #30 tab 01/23/20 03/23/20 Rx ammonium lactate 12 % lotion 1 appln TOP DAILY PRN #227 gm 02/25/20 Rx Patient History Medical History Afib (Chronic) Allergic rhinitis (Acute) Asthma (Acute) Cervical radiculopathy (Acute) Chronic systolic heart failure COPD (chronic obstructive pulmonary disease) Coronary artery disease Degenerative cervical disc Diabetes mellitus, type 2 Dyslipidemia Hepatitis C History of ventricular tachycardia Hypertension Impotence, organic Ischemic cardiomyopathy EF 20% December 2019 Nephrolithiasis Obesity Obstructive sleep apnea of adult Osteoarthritis Peripheral neuropathy Renal mass Respiratory failure (03/23/20) Stage III chronic kidney disease Vitamin D deficiency (Chronic) Surgical History History of coronary artery stent placement ICD (implantable cardioverter-defibrillator) in place (07/2017) 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 Beliefs That Will Affect Care: None marital status: Current Living Situation: Spouse Current Living Situation Comment: with & son current occupational status: retired Feels Safe at Home: Yes Smoking Status: Unknown if ever smoked Hx Alcohol Use: No Hx Substance Use: No caffeine: No Dental Care, Regularly: No Physical Activity Frequency: 5-6 Times per Week Physical Activity Frequency Comment: walking Seatbelt Use: always Sunscreen Use: No Review of Systems Constitutional: + fatigue and + weight gain; no fever, no chills and no weight loss Eyes: no problem reported Ear, Nose, Mouth, Throat: no problem reported Respiratory: + cough and + dyspnea Cardiovascular: as per Subjective / HPI Gastrointestinal: no abdominal pain and no change in stools Musculoskeletal: no myalgia Integumentary: no rash and no new lesions Neurologic: no falls and no syncope Psychiatric: no problem reported Hematologic / Lymphatic: no easy bleeding and no easy bruising Physical Exam Physical Exam: Adult white male on mechanical ventilation, alert and able to answer questions, not acutely distressed. Afebrile. BP 120/76 mmHg. Pulse 60 and regular. Respirations 18. Skin: No ecchymoses or generalized lesions. HEENT: Unremarkable. Neck: Jugular venous pulse long-term to the angle of the jaw at 30 degrees, no carotid bruits. Lungs: Dullness at the bases, minimal crackles with no wheezes, good airflow. No accessory muscle use, intercostal retraction, or abdominal paradox. Cardiac: Regular rhythm without obvious murmur, gallop, or rub. Abdomen: Nondistended. Extremities: No edema, peripheral pulses palpable. Neurologic: Alert, interactive, grossly nonfocal. Results & Data ([facility]) Laboratory Results 03/23/20 03/23/20 01:18 05:43 BUN 41 H 39 H Creatinine 2.45 H 2.16 H Troponin I < 0.015 Diagnostic Findings 2 ECGs from yesterday showed pacemaker with atrial sensing ventricular electronic pacing. Initial chest x-ray shows severe pulmonary edema, follow-up film shows improvement in bilateral infiltrates. Echocardiogram from December 2019 showed EF of 15-20% with severely dilated left ventricle, moderate mitral regurgitation, and severe diastolic dysfunction. PG Care Time/CCT Total # of Minutes Spent Total Time Spent with Patient: Total time spent is greater than 50% in coordination of care (as documented) at patient's floor/unit and/or counseling patient: Coding Level of Care Code 66923 Initial Inpt Care Lvl 3 Diagnoses Acute systolic (congestive) heart failure I50.21 Respiratory failure J96.90 Chronic systolic heart failure I50.22 Ischemic cardiomyopathy I25.5 Coronary artery disease I25.10 Coronary Disease-Associated Artery/Lesion type: [place] artery [place] vs. transplanted heart: [place] heart Associated angina: without angina ICD (implantable cardioverter-defibrillator) in place Z95.810 Hypertension I10 Hypertension type: essential hypertension History of ventricular tachycardia Z86.79 (1) Hypertension Hypertension type: essential hypertension Qualified Code(s): I10 - Essential (primary) hypertension (2) Coronary artery disease Coronary Disease-Associated Artery/Lesion type: [place] artery [place] vs. transplanted heart: [place] heart Associated angina: without angina Qualified Code(s): I25.10 - Atherosclerotic heart disease of [place] coronary artery without angina pectoris
[2020-03-23] MEDS: ASPIRIN 81 MG CHEW PO SCH (12:10)
[2020-03-23 14:45] LABS: Albumin Level 3.2 gm/dl (3.4-5.0); BUN Creatinine Ratio 19.5 (10-20); Calcium 8.8 mg/dl (8.5-10.1); Creatinine Clr Calc Pharmacy 45.7 ml/min; Est GFR (African American) 41.7; Est GFR (Non-African American) 35.9
[2020-03-23 14:48] LABS: Bilirubin,Total 0.6 mg/dl (0.2-1); Globulin 3.2 gm/dl (2.5-4.0); Total Protein 6.4 gm/dl (6.4-8.2)
[2020-03-23] MEDS: ISOSORBIDE MONONITRATE 20 MG TAB PO SCH (15:35)
--- NOTE | 2020-03-23 20:47 | Hospitalist Progress Note ---
Date of Service March 23, 2020 Assessment & Plan (1) Respiratory failure: This patient is a 64yo C male with history of COPD, CAD/ICM, CKD, DM, HTN, HLP presenting from [facility] with acute respiratory failure requiring intubation thought to be secondary to acute on chronic systolic CHF, but also with a history of COPD. ABG 7.28/54/98/25 performed on FiO2 80% upon admission and ABG today now improved at 7.38/40 3/132 on 50% FiO2. CXR with bilateral airspace disease right greater than left, favor CHF. Also with a history of COPD/Asthma COVID-19 test today was negative Leukocytosis now improving down to 16 without receiving any antibiotics-could be stress response Is now spiking [id number], could potentially have a pneumonia but procalcitonin negative, lactate negative Remains mechanically ventilated/intubated -Sedated Appreciate compounder helper management -Diuresing with IV Lasix twice daily -Follow I's and O's, chest x-ray, ABG -will have spontaneous breathing trial in the morning and possible extubation -Follow cultures -Hold empiric abx for now (2) Acute systolic (congestive) heart failure: Patient with extensive cardiac history to include CAD, ICM with EF of 15- 20% per echo in January 16, 2020, history of VT s/p Biventricular AICD, HTN, HLP. He has had multiple hospitalizations in the past for CHF exacerbation, last in December 2019 requiring MICU care (consult from 01/16/20) . He follows with Dr. Hagan of Cardiology, last seen on 01/29/20. Patients current symptoms of dyspnea and respiratory distress most likely secondary to acute decompensated CHF. Patient's endorses 2 weeks of progressive symptoms, increased use of intermittent O2 at home. She states that symptoms are similar to prior exacerbations of CHF. Possibly triggered by dietary indiscretion with increased Na and fluid intake. Patient intubated prior to arrival. Presently hemodynamically stable. Troponin negative. EKG with no acute ischemic findings. Patient presently 208#, dry weight of 205# per record review. Patient was previously on Entresto which was discontinued due to intolerance. He has also experienced symptomatic hypotension in the past with increased in medications for his CHF. Echocardiogram from 12/2019 shows EF 15-20% -Lasix 40mg IV administered at [facility]. Patient given additional 40mg IV here and now on 40 mg IV twice daily Is diuresing really well and oxygenating well on the ventilator -Closely monitor I/Os, daily weights -Closely monitor renal function and electrolytes -Appreciate cardiology consultation -Continue Amiodarone and Mexilitene at home doses -Continue Isosorbide and Carvedilol -Continue ASA (3) Elevated LFTs: AST and ALT are in the 200s Unclear reason but with fever, could be from a viral illness. There is also note in the chart of hepatitis C infection Could be hepatic congestion from acute CHF, although total bilirubin is normal -Follow LFTs in the morning -Check hepatitis panel (4) Fever: Spiking fevers today to 38 degrees, with leukocytosis With no obvious source of infection except perhaps pneumonia. COVID-19 is negative UA is normal, procalcitonin is negative, lactate negative -Follow blood cultures, sputum/tracheal aspirate culture -MOnitor CBC, leukocytosis -No empiric antibiotics for now (5) Diabetes mellitus, type 2: DM II with hyperglycemia -Insulin protocol per MICU -Hold oral glimepiride for now Hemoglobin A1c was 7.3% in 12/2019-check again in the morning (6) Coronary artery disease: History of inoperable CAD -Continue aspirin, carvedilol, isosorbide Is not on a statin-unclear why (7) COPD (chronic obstructive pulmonary disease): Currently ventilated and oxygenating well, no evidence of hypercarbia (8) Hypertension: Continue home meds of carvedilol 37.5 mg p.o. twice daily, isosorbide Diuresing (9) ICD (implantable cardioverter-defibrillator) in place: As above (10) Ischemic cardiomyopathy: As above (11) Obstructive sleep apnea of adult: Will need CPAP at nighttime after extubation (12) Stage III chronic kidney disease: Patient with CKD, baseline Cr reported to be 1.6 - 1.8. With acute kidney injury as evidenced by worsening of renal function on admission with BUN=41 and Cr= 2.45. Hyperkalemia on initial labs - K=5.7. History of renal mass thought to be malignant - deemed inoperable due to underlying medical comorbidities. -Treatment of hyperkalemia with Insulin/D50/Calcium gluconate and Lasix and now potassium is normal Renal function is improved with creatinine down to 1.9 today after diuresis -Avoid nephrotoxins -renally dose meds when appropriate -follow BMP (13) DVT prophylaxis: Heparin Code - Full per discussion with patient's , P[place]y [place]ee Dispo -continued stay in the ICU Admission and Anticipated Discharge Date Admission Date: March 23, 2020 Subjective Patient remains intubated and sedated but does startle a bit when I say his name. The nurse reports that he has been waking up at times and remains calm while intubated and is requiring just propofol for sedation. Review of Systems Review of Systems: Unobtainable due to endotracheal tube and Unobtainable due to reduced consciousness Physical Exam Constitutional: WD/WN, vitals as above ENMT: ET tube in place Neck: trachea midline, no thyromegaly Respiratory: normal respiratory effort (On ventilator) Auscultation: + crackles (At the bases); no rhonchi and no wheezes Cardiovascular: RRR, no murmur, no edema Chest (Breasts): Chest: normal inspection of chest Gastrointestinal (Abdomen): normal bowel sounds, soft, nontender, no hepatosplenomegaly Musculoskeletal: Extremities: extremities normal to inspection; no cyanosis and no clubbing Skin: no rashes, warm and dry Lymphatic: no lymphedema Results & Data Results & Data ([facility]) Vital Signs (Past 12 Hours) Vital Signs Pulse Resp BP Pulse Ox 03/23/20 19:45 61 19 93 03/23/20 18:50 66 97 03/23/20 18:40 66 95 03/23/20 18:31 62 127/64 95 03/23/20 18:30 63 94 03/23/20 18:20 60 93 03/23/20 18:10 63 95 03/23/20 18:02 66 170/125 H 95 03/23/20 18:00 63 96 03/23/20 17:50 63 98 03/23/20 17:40 61 98 03/23/20 17:30 60 96 03/23/20 17:20 60 95 03/23/20 17:15 60 18 96 03/23/20 17:10 60 91 03/23/20 17:00 60 106/59 L 91 03/23/20 16:50 60 91 03/23/20 16:40 62 91 03/23/20 16:30 60 93 03/23/20 16:20 67 94 03/23/20 16:10 60 97 03/23/20 16:00 60 112/67 94 03/23/20 15:50 62 94 03/23/20 15:40 61 96 03/23/20 15:30 60 95 03/23/20 15:20 60 95 03/23/20 15:10 60 97 03/23/20 15:00 60 143/67 H 99 03/23/20 14:50 60 98 03/23/20 14:40 60 95 03/23/20 14:30 61 99 03/23/20 14:20 62 98 03/23/20 14:10 63 97 03/23/20 14:00 62 21 118/66 97 03/23/20 13:00 61 124/71 100 03/23/20 12:00 60 124/67 97 03/23/20 11:00 60 112/61 96 03/23/20 10:50 62 18 97 03/23/20 10:46 60 109/67 96 03/23/20 10:33 63 106/65 95 03/23/20 09:33 62 109/70 93 Laboratory Results 03/23/20 03/23/20 03/23/20 Range/Units 19:02 14:04 12:00 WBC (4.8-10.8) K/uL RBC (4.7-6.1) M/uL Hgb (14.0-18.0) g/dL Hct (42-52) % MCV (80-100) fL MCH (25-34) pg MCHC (32-36) g/dL RDW Std Deviation (36.4-46.3) fL RDW Coeff of Tristan (11.5-14.5) % Plt Count (130-400) K/uL MPV (7.4-10.4) fL Immature Gran % (Auto) % Neut % (Auto) % Lymph % (Auto) % Sherman % (Auto) % Eos % (Auto) % Baso % (Auto) % Immature Gran # (Auto) (0.00-0.02) K/uL Neut # (Auto) (1.4-6.5) K/uL Lymph # (Auto) (1.2-3.4) K/uL Sherman # (Auto) (0.11-0.59) K/uL Eos # (Auto) (0-0.5) K/uL Baso # (Auto) (0-0.2) K/uL Sample Site POC pH (7.35-7.45) POC pCO2 (35-46) mmHg POC pO2 (80-95) mmHg POC HCO3 (19-24) hermann/L POC Total CO2 (24-31) mmol/L POC Base Excess (-9-1.8) hermann/L POC ABG O2 Sat (90-95) % Maykel Test O2 Delivery Device POC O2 Rate Minute Ventilation POC FiO2 % Tidal Volume PEEP Sodium 142 (136-145) mmol/L Potassium 4.0 (3.5-5.1) mmol/L Chloride 108 H (98-107) mmol/L Carbon Dioxide 25 (21-32) mmol/L Anion Gap 9.0 (3-11) BUN 37 H (7-18) mg/dl Creatinine 1.90 H (0.6-1.4) mg/dl Est Cr Clr Drug Dosing 45.7 ml/min Est GFR ( Amer) 41.7 Est GFR (Non-Af Amer) 35.9 BUN/Creatinine Ratio 19.5 (10-20) Glucose 106 H (70-99) mg/dl POC Glucose 101 H 117 H (70-99) mg/dl Lactate (0.4-2.0) mmol/L Calcium 8.8 (8.5-10.1) mg/dl Phosphorus (2.5-4.9) mg/dl Magnesium (1.8-2.4) mg/dl Total Bilirubin 0.6 (0.2-1) mg/dl AST 203 H (15-37) U/L ALT 273 H (12-78) U/L Alkaline Phosphatase 49 (45-117) U/L Troponin I (0-0.045) ng/ml NT-Pro-B Natriuret Pep (0-900) pg/ml Total Protein 6.4 (6.4-8.2) gm/dl Albumin 3.2 L (3.4-5.0) gm/dl Globulin 3.2 (2.5-4.0) gm/dl Albumin/Globulin Ratio 1.0 (0.9-2) Procalcitonin (0-0.5) ng/ml Nasal Screen MRSA (PCR) (Negative) COVID-19 PCR (Negative) SARS-CoV-2 RNA (RT-PCR) 03/23/20 03/23/20 03/23/20 Range/Units 08:30 05:55 05:43 WBC (4.8-10.8) K/uL RBC (4.7-6.1) M/uL Hgb (14.0-18.0) g/dL Hct (42-52) % MCV (80-100) fL MCH (25-34) pg MCHC (32-36) g/dL RDW Std Deviation (36.4-46.3) fL RDW Coeff of Tristan (11.5-14.5) % Plt Count (130-400) K/uL MPV (7.4-10.4) fL Immature Gran % (Auto) % Neut % (Auto) % Lymph % (Auto) % Sherman % (Auto) % Eos % (Auto) % Baso % (Auto) % Immature Gran # (Auto) (0.00-0.02) K/uL Neut # (Auto) (1.4-6.5) K/uL Lymph # (Auto) (1.2-3.4) K/uL Sherman # (Auto) (0.11-0.59) K/uL Eos # (Auto) (0-0.5) K/uL Baso # (Auto) (0-0.2) K/uL Sample Site L Radial POC pH 7.38 (7.35-7.45) POC pCO2 43 (35-46) mmHg POC pO2 132 H (80-95) mmHg POC HCO3 25 H (19-24) hermann/L POC Total CO2 27 (24-31) mmol/L POC Base Excess 0.0 (-9-1.8) hermann/L POC ABG O2 Sat 99.0 H (90-95) % Maykel Test Pass O2 Delivery Device Ventilator POC O2 Rate 18 Minute Ventilation 9 POC FiO2 80 % Tidal Volume 500 PEEP 8 Sodium 140 (136-145) mmol/L Potassium 3.9 D (3.5-5.1) mmol/L Chloride 107 (98-107) mmol/L Carbon Dioxide 25 (21-32) mmol/L Anion Gap 8.0 (3-11) BUN 39 H (7-18) mg/dl Creatinine 2.16 H (0.6-1.4) mg/dl Est Cr Clr Drug Dosing 40.2 ml/min Est GFR ( Amer) 35.7 Est GFR (Non-Af Amer) 30.8 BUN/Creatinine Ratio 17.9 (10-20) Glucose 137 H (70-99) mg/dl POC Glucose (70-99) mg/dl Lactate (0.4-2.0) mmol/L Calcium 8.7 (8.5-10.1) mg/dl Phosphorus (2.5-4.9) mg/dl Magnesium (1.8-2.4) mg/dl Total Bilirubin (0.2-1) mg/dl AST (15-37) U/L ALT (12-78) U/L Alkaline Phosphatase (45-117) U/L Troponin I (0-0.045) ng/ml NT-Pro-B Natriuret Pep (0-900) pg/ml Total Protein (6.4-8.2) gm/dl Albumin (3.4-5.0) gm/dl Globulin (2.5-4.0) gm/dl Albumin/Globulin Ratio (0.9-2) Procalcitonin (0-0.5) ng/ml Nasal Screen MRSA (PCR) (Negative) COVID-19 PCR NEGATIVE (Negative) SARS-CoV-2 RNA (RT-PCR) 03/23/20 03/23/20 03/23/20 Range/Units 05:26 02:10 01:20 WBC (4.8-10.8) K/uL RBC (4.7-6.1) M/uL Hgb (14.0-18.0) g/dL Hct (42-52) % MCV (80-100) fL MCH (25-34) pg MCHC (32-36) g/dL RDW Std Deviation (36.4-46.3) fL RDW Coeff of Tristan (11.5-14.5) % Plt Count (130-400) K/uL MPV (7.4-10.4) fL Immature Gran % (Auto) % Neut % (Auto) % Lymph % (Auto) % Sherman % (Auto) % Eos % (Auto) % Baso % (Auto) % Immature Gran # (Auto) (0.00-0.02) K/uL Neut # (Auto) (1.4-6.5) K/uL Lymph # (Auto) (1.2-3.4) K/uL Sherman # (Auto) (0.11-0.59) K/uL Eos # (Auto) (0-0.5) K/uL Baso # (Auto) (0-0.2) K/uL Sample Site L Radial POC pH 7.35 (7.35-7.45) POC pCO2 47 H (35-46) mmHg POC pO2 48 L (80-95) mmHg POC HCO3 26 H (19-24) hermann/L POC Total CO2 27 (24-31) mmol/L POC Base Excess 0.0 (-9-1.8) hermann/L POC ABG O2 Sat 81.0 L (90-95) % Maykel Test Pass O2 Delivery Device Ventilator POC O2 Rate 18 Minute Ventilation 9 POC FiO2 80 % Tidal Volume 500 PEEP 8 Sodium (136-145) mmol/L Potassium (3.5-5.1) mmol/L Chloride (98-107) mmol/L Carbon Dioxide (21-32) mmol/L Anion Gap (3-11) BUN (7-18) mg/dl Creatinine (0.6-1.4) mg/dl Est Cr Clr Drug Dosing ml/min Est GFR ( Amer) Est GFR (Non-Af Amer) BUN/Creatinine Ratio (10-20) Glucose (70-99) mg/dl POC Glucose (70-99) mg/dl Lactate (0.4-2.0) mmol/L Calcium (8.5-10.1) mg/dl Phosphorus (2.5-4.9) mg/dl Magnesium (1.8-2.4) mg/dl Total Bilirubin (0.2-1) mg/dl AST (15-37) U/L ALT (12-78) U/L Alkaline Phosphatase (45-117) U/L Troponin I (0-0.045) ng/ml NT-Pro-B Natriuret Pep (0-900) pg/ml Total Protein (6.4-8.2) gm/dl Albumin (3.4-5.0) gm/dl Globulin (2.5-4.0) gm/dl Albumin/Globulin Ratio (0.9-2) Procalcitonin (0-0.5) ng/ml Nasal Screen MRSA (PCR) Negative (Negative) COVID-19 PCR (Negative) SARS-CoV-2 RNA (RT-PCR) Cancelled 03/23/20 03/23/20 03/23/20 Range/Units 01:18 01:18 01:18 WBC (4.8-10.8) K/uL RBC (4.7-6.1) M/uL Hgb (14.0-18.0) g/dL Hct (42-52) % MCV (80-100) fL MCH (25-34) pg MCHC (32-36) g/dL RDW Std Deviation (36.4-46.3) fL RDW Coeff of Tristan (11.5-14.5) % Plt Count (130-400) K/uL MPV (7.4-10.4) fL Immature Gran % (Auto) % Neut % (Auto) % Lymph % (Auto) % Sherman % (Auto) % Eos % (Auto) % Baso % (Auto) % Immature Gran # (Auto) (0.00-0.02) K/uL Neut # (Auto) (1.4-6.5) K/uL Lymph # (Auto) (1.2-3.4) K/uL Sherman # (Auto) (0.11-0.59) K/uL Eos # (Auto) (0-0.5) K/uL Baso # (Auto) (0-0.2) K/uL Sample Site POC pH (7.35-7.45) POC pCO2 (35-46) mmHg POC pO2 (80-95) mmHg POC HCO3 (19-24) hermann/L POC Total CO2 (24-31) mmol/L POC Base Excess (-9-1.8) hermann/L POC ABG O2 Sat (90-95) % Maykel Test O2 Delivery Device POC O2 Rate Minute Ventilation POC FiO2 % Tidal Volume PEEP Sodium 139 (136-145) mmol/L Potassium 5.7 H (3.5-5.1) mmol/L Chloride 107 (98-107) mmol/L Carbon Dioxide 23 (21-32) mmol/L Anion Gap 9.0 (3-11) BUN 41 H (7-18) mg/dl Creatinine 2.45 H (0.6-1.4) mg/dl Est Cr Clr Drug Dosing 35.4 ml/min Est GFR ( Amer) 30.6 Est GFR (Non-Af Amer) 26.4 BUN/Creatinine Ratio 16.6 (10-20) Glucose 193 H (70-99) mg/dl POC Glucose (70-99) mg/dl Lactate 1.2 (0.4-2.0) mmol/L Calcium 8.6 (8.5-10.1) mg/dl Phosphorus 5.4 H (2.5-4.9) mg/dl Magnesium 2.6 H (1.8-2.4) mg/dl Total Bilirubin (0.2-1) mg/dl AST (15-37) U/L ALT (12-78) U/L Alkaline Phosphatase (45-117) U/L Troponin I < 0.015 (0-0.045) ng/ml NT-Pro-B Natriuret Pep 8193 H (0-900) pg/ml Total Protein (6.4-8.2) gm/dl Albumin (3.4-5.0) gm/dl Globulin (2.5-4.0) gm/dl Albumin/Globulin Ratio (0.9-2) Procalcitonin < 0.05 (0-0.5) ng/ml Nasal Screen MRSA (PCR) (Negative) COVID-19 PCR (Negative) SARS-CoV-2 RNA (RT-PCR) 03/23/20 03/23/20 Range/Units 01:18 01:03 WBC 16.63 H (4.8-10.8) K/uL RBC 4.76 (4.7-6.1) M/uL Hgb 14.6 (14.0-18.0) g/dL Hct 44.1 (42-52) % MCV 92.6 (80-100) fL MCH 30.7 (25-34) pg MCHC 33.1 (32-36) g/dL RDW Std Deviation 50.3 H (36.4-46.3) fL RDW Coeff of Tristan 14.9 H (11.5-14.5) % Plt Count 241 (130-400) K/uL MPV 10.5 H (7.4-10.4) fL Immature Gran % (Auto) 1.6 % Neut % (Auto) 83.7 % Lymph % (Auto) 8.2 % Sherman % (Auto) 6.2 % Eos % (Auto) 0.1 % Baso % (Auto) 0.2 % Immature Gran # (Auto) 0.27 H (0.00-0.02) K/uL Neut # (Auto) 13.92 H (1.4-6.5) K/uL Lymph # (Auto) 1.36 (1.2-3.4) K/uL Sherman # (Auto) 1.03 H (0.11-0.59) K/uL Eos # (Auto) 0.01 (0-0.5) K/uL Baso # (Auto) 0.04 (0-0.2) K/uL Sample Site R Radial POC pH 7.28 L (7.35-7.45) POC pCO2 54 H (35-46) mmHg POC pO2 98 H (80-95) mmHg POC HCO3 25 H (19-24) hermann/L POC Total CO2 27 (24-31) mmol/L POC Base Excess -2.0 (-9-1.8) hermann/L POC ABG O2 Sat 96.0 H (90-95) % Maykel Test Pass O2 Delivery Device Ventilator POC O2 Rate 18 Minute Ventilation POC FiO2 90 % Tidal Volume 500 PEEP 5 Sodium (136-145) mmol/L Potassium (3.5-5.1) mmol/L Chloride (98-107) mmol/L Carbon Dioxide (21-32) mmol/L Anion Gap (3-11) BUN (7-18) mg/dl Creatinine (0.6-1.4) mg/dl Est Cr Clr Drug Dosing ml/min Est GFR ( Amer) Est GFR (Non-Af Amer) BUN/Creatinine Ratio (10-20) Glucose (70-99) mg/dl POC Glucose (70-99) mg/dl Lactate (0.4-2.0) mmol/L Calcium (8.5-10.1) mg/dl Phosphorus (2.5-4.9) mg/dl Magnesium (1.8-2.4) mg/dl Total Bilirubin (0.2-1) mg/dl AST (15-37) U/L ALT (12-78) U/L Alkaline Phosphatase (45-117) U/L Troponin I (0-0.045) ng/ml NT-Pro-B Natriuret Pep (0-900) pg/ml Total Protein (6.4-8.2) gm/dl Albumin (3.4-5.0) gm/dl Globulin (2.5-4.0) gm/dl Albumin/Globulin Ratio (0.9-2) Procalcitonin (0-0.5) ng/ml Nasal Screen MRSA (PCR) (Negative) COVID-19 PCR (Negative) SARS-CoV-2 RNA (RT-PCR) PG Care Time/CCT Total # of Minutes Spent Total Time Spent with Patient: Total time spent is greater than 50% in coordination of care (as documented) at patient's floor/unit and/or counseling patient: Coding Level of Care Code None Diagnoses Respiratory failure J96.90 Acute systolic (congestive) heart failure I50.21 Elevated LFTs R79.89 Fever R50.9 Diabetes mellitus, type 2 E11.9 Coronary artery disease I25.10 Coronary Disease-Associated Artery/Lesion type: [place] artery [place] vs. transplanted heart: [place] heart Associated angina: without angina COPD (chronic obstructive pulmonary disease) J44.9 Hypertension I10 Hypertension type: essential hypertension ICD (implantable cardioverter-defibrillator) in place Z95.810 Ischemic cardiomyopathy I25.5 Obstructive sleep apnea of adult G47.33 Stage III chronic kidney disease N18.3 DVT prophylaxis Z29.9 (1) Hypertension Hypertension type: essential hypertension Qualified Code(s): I10 - Essential (primary) hypertension (2) Coronary artery disease Coronary Disease-Associated Artery/Lesion type: [place] artery [place] vs. transplanted heart: [place] heart Associated angina: without angina Qualified Code(s): I25.10 - Atherosclerotic heart disease of [place] coronary artery without angina pectoris
[2020-03-23] MEDS: FUROSEMIDE 40 MG in SYRINGE 0 ML IV SCH (22:01)
[2020-03-24] MEDS: propofoL 1,000 MG/100 ML VIAL IV SCH ×3 (02:01→10:57)
[2020-03-24 05:00] LABS: Basophils # (auto) 0.02 K/uL (0-0.2); Basophils % (auto) 0.2 %; Eosinophils # (auto) 0.05 K/uL (0-0.5); Eosinophils % (auto) 0.5 %; Hematocrit (blood only) 40.7 % (42-52); Hemoglobin 13.2 g/dL (14.0-18.0); Immature Granulocytes # (auto) 0.09 K/uL (0.00-0.02); Immature Granulocytes % (auto) 0.9 %; Lymphocytes # (auto) 1.28 K/uL (1.2-3.4); Lymphocytes % (auto) 12.1 %; Mean Corpuscular Hgb Conc 32.4 g/dL (32-36); Mean Corpuscular Volume 92.5 fL (80-100); Mean Platelet Volume 11.1 fL (7.4-10.4); Monocytes # (auto) 1.36 K/uL (0.11-0.59); Monocytes % (auto) 12.9 %; Neutrophils # (auto) 7.78 K/uL (1.4-6.5); Neutrophils % (auto) 73.4 %; Platelet Count 185 K/uL (130-400); RDW Coefficient of Variation 15.3 % (11.5-14.5); RDW Standard Deviation 51.8 fL (36.4-46.3); White Blood Count 10.58 K/uL (4.8-10.8)
[2020-03-24] MEDS: HEPARIN SOD 5,000 UNIT/0.5 ML VIAL SQ SCH ×3 (06:05→20:58)
[2020-03-24] MEDS: fentaNYL citrate 100 MCG/2 ML VIAL IV PRN (06:09)
[2020-03-24 06:11] LABS: iSTAT Allen Test Pass; iSTAT Arterial Blood Gas HCO3 26 meg/L (19-24); iSTAT Arterial Blood Gas pCO2 34 mmHg (35-46); iSTAT Arterial Blood Gas pO2 59 mmHg (80-95); iSTAT Carbon Dioxide 27 mmol/L (24-31); iSTAT FiO2 35 %; iSTAT Site L Radial
[2020-03-24 06:39] LABS: Albumin Globulin Ratio 0.9 (0.9-2); Albumin Level 3.1 gm/dl (3.4-5.0); BUN Creatinine Ratio 18.4 (10-20); Bilirubin,Total 0.7 mg/dl (0.2-1); Calcium 8.6 mg/dl (8.5-10.1); Creatinine Clr Calc Pharmacy 45.8 ml/min; Est GFR (African American) 46.3; Globulin 3.5 gm/dl (2.5-4.0); Magnesium 2.3 mg/dl (1.8-2.4); Phosphorus 2.8 mg/dl (2.5-4.9); Potassium 3.4 mmol/L (3.5-5.1); Total Protein 6.6 gm/dl (6.4-8.2)
--- NOTE | 2020-03-24 07:34 | Critical Care Progress Note ---
Date of Service March 24, 2020 Assessment & Plan (1) Acute systolic (congestive) heart failure: Reason Critically Ill: 64-year-old male in acute hypoxic respiratory failure with hypercapnia 2/2 CHF exacerbation with underlying COPD. Requiring endotracheal intubation with close monitoring. 24-hour events: Patient was seen and evaluated by cardiology. He continue diuresis. He is had slow and steady improvement in his serum creatinine. Minimal vent settings. He is placed on SBT this morning and is done quite well with an RSB I well less than 100. He appears comfortable. He is appropriate to extubate. Recommendations: NEURO - CAM ICU: NEGATIVE no current issues. Continue to monitor CARDIAC/VASCULAR - Acute CHF exacerbation: Continue outpatient medications. Continue gentle diuresis as tolerated. Appreciate cardiology input. Defer decision regarding anticoagulation with reduced EF to cardiology. History of VT. AICD in place. Continue amiodarone and mexiletine RESPIRATORY - Acute hypoxic respiratory failure with hypercapnia: Markedly better today. We will proceed with SBT. Continue optimization of vol ume. The patient does have underlying sleep disordered breathing and may require CPAP when sleeping at 11 cm of water. Continue pulmonary toilet. Out of bed to chair as tolerated. Wean oxygen to maintain oxygen saturations at or above 88%. Patient does relate a history of COPD but I cannot find PFTs available in our system. He is not bronchospastic currently. He is not using inhalers in the outpatient setting. We will continue to use albuterol Atrovent on an as-needed basis. GI/NUTRITION - If does well advance diet to liquids today and full later this afternoon. Mild elevation in transaminases which is been chronic. Continue to trend RENAL/LYTES - Chronic kidney disease, stage III. He appears to be improving currently. Continue to trend. Electrolytes and acid-base status stable even with diuresis. - No issues. Can likely discontinue Levy ENDO - Continue sliding scale insulin. Will restart oral agents once he is taking p.o. HEME - Stable H&H ID - Procalcitonin was negative and sputum cultures have shown no growth to date. No antibiotics indicated currently. Disposition: We will observe the patient in the ICU throughout this morning. If he does well this afternoon he can likely transfer to the floor under the care of the hospitalist. He is established with a heart failure clinic and will require continued close follow-up. LINES/IV ACCESS - PIVs x2 ET tube Levy DVT PROPHYLAXIS - Heparin SCDs (2) Respiratory failure: (3) Ischemic cardiomyopathy: Admission and Anticipated Discharge Date Admission Date: March 23, 2020 Subjective Patient currently awake and alert on the ventilator. Follows command. Denies distress. Appears comfortable on spontaneous breathing trial 03/23. No complaints Review of Systems Review of Systems: Unobtainable due to endotracheal tube Physical Exam Constitutional: WD/WN, vitals as above + mechanically ventilated Neck: trachea midline, no thyromegaly Improved JVD Respiratory: Few crackles at the bases. Cardiovascular: RRR, no murmur, no edema Gastrointestinal (Abdomen): normal bowel sounds, soft, nontender, no hepatosplenomegaly Musculoskeletal: Extremities: extremities normal to inspection Skin: no rashes, warm and dry Neurologic: Nonfocal exam Lymphatic: no cervical lymphadenopathy Results & Data Results & Data ([facility]) Vital Signs (Past 12 Hours) Vital Signs Pulse Resp BP Pulse Ox 03/24/20 06:07 63 18 93 03/24/20 06:00 63 126/71 95 03/24/20 05:00 63 103/55 L 92 03/24/20 04:01 67 124/64 99 03/24/20 04:00 63 94 03/24/20 03:00 63 94/51 L 90 03/24/20 02:18 60 18 93 03/24/20 02:00 60 110/56 L 91 03/24/20 01:00 60 103/59 L 92 03/24/20 00:00 60 105/54 L 89 L 03/23/20 23:30 93 03/23/20 23:06 66 22 94 03/23/20 23:00 60 123/63 93 03/23/20 21:45 60 92 03/23/20 21:30 60 92 03/23/20 21:15 95 03/23/20 21:00 64 104/67 97 03/23/20 20:45 67 95 03/23/20 20:30 66 92 03/23/20 20:15 62 91 03/23/20 20:00 63 121/63 93 03/23/20 19:45 64 19 94 03/23/20 19:30 60 94 Laboratory Results 03/24/20 04:02 03/24/20 04:02 Culture data showed no growth to date. Diagnostic Findings Chest x-ray from today was independently reviewed. The endotracheal tube is in good position. There is marked improvement in the bilateral pulmonary infiltrates. No new findings Coding Level of Care Code 60122 Subseq Hosp Care l 3 Diagnoses Acute systolic (congestive) heart failure I50.21 Respiratory failure J96.90 Ischemic cardiomyopathy I25.5 Time Spent (min) 26
--- NOTE | 2020-03-24 07:36 | XRay Report ---
XR chest 1V portable CLINICAL HISTORY: 64 years-old Male presenting with f/u. TECHNIQUE: Portable upright AP view of the chest was obtained. COMPARISON: 03/23/2020. FINDINGS: Endotracheal tube may be present though is difficult to visualize. This appears to be located within the upper thoracic trachea, significant distance from the katelin. Nasogastric tube descends below the diaphragm, terminus not visualized. Numerous external overlying leads to grating evaluation. Left meehan bclavian implanted cardiac defibrillator with leads to the right atrium, right ventricular apex, and left ventricle via the coronary sinus. Atherosclerosis of the aortic arch. Cardiac silhouette moderat bret enlarged. Significant interval decrease in right pleural effusion and/or right basilar opacity. A pleural effusion is not evident on the current exam. Only mild added density at the right lung base may be present. No pneumothorax. Degenerative changes of the thoracic spine. Upper abdomen normal. IMPRESSION: 1. Significant interval decrease in the right pleural effusion or right basilar consolidation. Trace residual right basilar infiltrate remains. 2. Cardiomegaly without significant volume overload on the current exam. 3. Endotracheal tube difficult to visualize though grossly appropriately positioned. ACT 112: Negative or not required by law. Electronically signed by: Truong Pradhan M.D. 03/24/2020 7:35 AM
[2020-03-24 08:14] LABS: Hepatitis B Surface Antigen Neg (Neg)
[2020-03-24] MEDS: FUROSEMIDE 40 MG in SYRINGE 0 ML IV SCH ×2 (08:24→17:25)
[2020-03-24] MEDS: POTASSIUM CHLORIDE / WTR 10 MEQ/100 ML PLCT IV SCH ×2 (08:24→09:36)
[2020-03-24] MEDS ORDERED: POTASSIUM CHLORIDE 20 MEQ TABCR PO STA (09:40)
[2020-03-24] MEDS ORDERED: GLUCOSE 40% GEL 15 GM TUBE PO PRN (10:00)
[2020-03-24] MEDS ORDERED: DEXTROSE 50% 50 ML SYRINGE IV PRN (10:00)
[2020-03-24] MEDS ORDERED: GLUCAGON FOR INJ 1 MG VIAL IM PRN (10:00)
[2020-03-24] MEDS ORDERED: GLUCOSE 10 TABS/TUBE PO PRN (10:00)
[2020-03-24] MEDS ORDERED: CARBOHYDRATES FOR HYPOGLYCEMIA PO PRN (10:00)
[2020-03-24] MEDS: ISOSORBIDE MONO EXTENDED REL 30 MG TABCR PO SCH (10:31)
[2020-03-24] MEDS: AMIODARONE 200 MG TAB PO SCH (10:31)
[2020-03-24] MEDS: ASPIRIN 81 MG ECTAB PO SCH (10:31)
[2020-03-24] MEDS: carvediloL 12.5 MG TAB PO SCH ×2 (10:31→20:59)
[2020-03-24] MEDS: MEXILETINE HCL 150 MG CAPSULE PO SCH ×2 (10:32→20:58)
[2020-03-24] MEDS: TRAMADOL HCL 50 MG TABLET PO PRN (10:35)
[2020-03-24] MEDS: ISOSORBIDE MONONITRATE 20 MG TAB PO SCH (10:57)
[2020-03-24] MEDS: ASPIRIN 81 MG CHEW PO SCH (10:58)
--- NOTE | 2020-03-24 11:05 | Hospitalist Progress Note ---
Date of Service March 24, 2020 Assessment & Plan (1) Respiratory failure: This patient is a 64yo C male with history of COPD, CAD/ICM, CKD, DM, HTN, HLP presenting from [facility] with acute respiratory failure requiring intubation thought to be secondary to acute on chronic systolic CHF, but also with a history of COPD. ABG 7.28/54/98/25 performed on FiO2 80% upon admission and ABG then improved at 7.38/40 3/132 on 50% FiO2. CXR with bilateral airspace disease right greater than left, favor CHF. Also with a history of COPD/Asthma COVID-19 test was negative Leukocytosis now resolved without receiving any antibiotics-could've been stress response Had some [id number], could potentially have a pneumonia but procalcitonin negative, lactate negative, now resolved Extubated on 03/24 and on 2LNC, doing very well s/p diuresis CXR 03/24 much improved -continue diuresing with IV Lasix twice daily -Follow I's and O's, daily weights -Follow cultures -no abx needed (2) Acute systolic (congestive) heart failure: Patient with extensive cardiac history to include CAD, ICM with EF of 15- 20% per echo in January 16, 2020, history of VT s/p Biventricular AICD, HTN, HLP. He has had multiple hospitalizations in the past for CHF exacerbation, last in December 2019 requiring MICU care (consult from 01/16/20) . He follows with Dr. Hagan of Cardiology, last seen on 01/29/20. Patients current symptoms of dyspnea and respiratory distress most likely secondary to acute decompensated CHF. Patient's endorses 2 weeks of progressive symptoms, increased use of intermittent O2 at home. She states that symptoms are similar to prior exacerbations of CHF. Possibly triggered by dietary indiscretion with increased Na and fluid intake. Patient intubated prior to arrival. Presently hemodynamically stable. Troponin negative. EKG with no acute ischemic findings. Patient presently 208#, dry weight of 205# per record review. Patient was previously on Entresto which was discontinued due to intolerance. He has also experienced symptomatic hypotension in the past with increased in medications for his CHF. Echocardiogram from 12/2019 shows EF 15-20% -Lasix 40mg IV administered at [facility]. Patient given additional 40mg IV here and now on 40 mg IV twice daily Is diuresing really well --> now net negative 3.5L and weight down 4 kg Extubated and on 2LNC, CXR much improved -continue to monitor I/Os, daily weights -Closely monitor renal function and electrolytes -Appreciate cardiology consultation -Continue Amiodarone and Mexilitene at home doses -Continue Isosorbide and Carvedilol -Continue ASA - (3) Elevated LFTs: AST and ALT are in the 200s and now slightly improved today Pt denies any abdominal pain has a h/o HCV treated 10 years ago and thinks he was cured Could be hepatic congestion from acute CHF, although total bilirubin is normal -Follow LFTs in the morning -Check hepatitis panel-HCV antibody positive, A and B pending (4) Fever: had some low grade fevers to 38 degrees on 03/23 with leukocytosis now resolved, never received any antibiotics Blood and sputum cxs no growth to date With no obvious source of infection-not likely PNA as per my d/w Pulm COVID-19 is negative UA is normal, procalcitonin is negative x 2, lactate negative -Follow blood cultures, sputum/tracheal aspirate culture -MOnitor CBC -No empiric antibiotics for now (5) Diabetes mellitus, type 2: DM II with hyperglycemia improved control -Hold oral glimepiride for now Hemoglobin A1c was 7.3% in 12/2019-check again in the morning -continue SSI (6) Coronary artery disease: History of inoperable CAD -Continue aspirin, carvedilol, isosorbide Is not on a statin-unclear why (7) COPD (chronic obstructive pulmonary disease): no wheezing not on inhalers, no PFTs in system found by Pulm -monitor (8) Hypertension: Continue home meds of carvedilol 37.5 mg p.o. twice daily, isosorbide Diuresing (9) ICD (implantable cardioverter-defibrillator) in place: As above (10) Ischemic cardiomyopathy: As above (11) Obstructive sleep apnea of adult: Will need CPAP at nighttime and with naps at 11cm H2O (12) Stage III chronic kidney disease: Patient with CKD, baseline Cr reported to be 1.6 - 1.8. With acute ki dney injury as evidenced by worsening of renal function on admission with BUN=41 and Cr= 2.45. Hyperkalemia on initial labs - K=5.7. History of renal mass thought to be malignant - deemed inoperable due to underlying medical comorbidities. -Treatment of hyperkalemia with Insulin/D50/Calcium gluconate and Lasix and now potassium is normal/low Renal function is improved with creatinine down to 1.7 today after diuresis -Avoid nephrotoxins -renally dose meds when appropriate -follow BMP (13) DVT prophylaxis: Heparin Code - Full per discussion with patient's , [place] Dispo -stable for downgrade from ICU to PCU today Admission and Anticipated Discharge Date Admission Date: March 23, 2020 Subjective Pt extubated this AM and feels "good." Denies any SOB and is on 2LNC currently. Has a mild productive cough, denies CP. No nausea and just tolerated liquids diet, denies any trouble swallowing. No further fevers today. Discussed case with [employer] Officer. Tele with paced rhythm, occasional PVCs Review of Systems Review of Systems: All systems reviewed & are unremarkable except as noted in HPI & below Physical Exam Constitutional: WD/WN, vitals as above (sitting up in bed) Eyes: + anicteric sclerae Neck: trachea midline, no thyromegaly Respiratory: normal respiratory effort; no labored breathing Auscultation: + crackles (mild at right base) and + wheezes (faint wheeze right upper lung field); no rales and no rhonchi Cardiovascular: RRR, no murmur, no edema Chest (Breasts): Chest: normal inspection of chest Gastrointestinal (Abdomen): normal bowel sounds, soft, nontender, no hepatosplenomegaly Musculoskeletal: Extremities: extremities normal to inspection; no cyanosis and no clubbing Skin: no rashes, warm and dry Neurologic: PERRL, EOMI, accommodation nl, no face palsy, no dysarthria moves all extremities Psychiatric: A+Ox3, euthymic affect Lymphatic: no lymphedema Results & Data Results & Data ([facility]) Vital Signs (Past 12 Hours) Vital Signs Pulse Resp BP Pulse Ox Pulse Ox 03/24/20 08:38 63 03/24/20 08:09 96 03/24/20 06:55 64 9 L 90 03/24/20 06:07 63 18 93 03/24/20 06:00 63 126/71 95 03/24/20 05:00 63 103/55 L 92 03/24/20 04:01 67 124/64 99 03/24/20 04:00 63 94 03/24/20 03:00 63 94/51 L 90 03/24/20 02:18 60 18 93 03/24/20 02:00 60 110/56 L 91 03/24/20 01:00 60 103/59 L 92 03/24/20 00:00 60 105/54 L 89 L 03/23/20 23:30 93 03/23/20 23:06 66 22 94 Laboratory Results 03/24/20 03/24/20 03/24/20 Range/Units 05:55 04:02 04:02 WBC (4.8-10.8) K/uL RBC (4.7-6.1) M/uL Hgb (14.0-18.0) g/dL Hct (42-52) % MCV (80-100) fL MCH (25-34) pg MCHC (32-36) g/dL RDW Std Deviation (36.4-46.3) fL RDW Coeff of Tristan (11.5-14.5) % Plt Count (130-400) K/uL MPV (7.4-10.4) fL Immature Gran % (Auto) % Neut % (Auto) % Lymph % (Auto) % [place] % (Auto) % Eos % (Auto) % Baso % (Auto) % Immature Gran # (Auto) (0.00-0.02) K/uL Neut # (Auto) (1.4-6.5) K/uL Lymph # (Auto) (1.2-3.4) K/uL [place] # (Auto) (0.11-0.59) K/uL Eos # (Auto) (0-0.5) K/uL Baso # (Auto) (0-0.2) K/uL Sample Site L Radial POC pH 7.50 H (7.35-7.45) POC pCO2 34 L (35-46) mmHg POC pO2 59 L (80-95) mmHg POC HCO3 26 H (19-24) hermann/L POC Total CO2 27 (24-31) mmol/L POC Base Excess 3.0 H (-9-1.8) hermann/L POC ABG O2 Sat 93.0 (90-95) % Maykel Test Pass O2 Delivery Device Ventilator POC O2 Rate 18 Minute Ventilation 9.0 POC FiO2 35 % Tidal Volume 500 PEEP 8 Sodium (136-145) mmol/L Potassium (3.5-5.1) mmol/L Chloride (98-107) mmol/L Carbon Dioxide (21-32) mmol/L Anion Gap (3-11) BUN (7-18) mg/dl Creatinine (0.6-1.4) mg/dl Est Cr Clr Drug Dosing ml/min Est GFR ( Amer) Est GFR (Non-Af Amer) BUN/Creatinine Ratio (10-20) Glucose (70-99) mg/dl POC Glucose (70-99) mg/dl Calcium (8.5-10.1) mg/dl Phosphorus (2.5-4.9) mg/dl Magnesium (1.8-2.4) mg/dl Total Bilirubin (0.2-1) mg/dl AST (15-37) U/L ALT (12-78) U/L Alkaline Phosphatase (45-117) U/L Total Creatine Kinase (39-308) U/L Total Protein (6.4-8.2) gm/dl Albumin (3.4-5.0) gm/dl Globulin (2.5-4.0) gm/dl Albumin/Globulin Ratio (0.9-2) Procalcitonin 0.31 (0-0.5) ng/ml Hepatitis A IgM Ab Hep Bs Antigen (Neg) Hep B Core IgM Ab Hepatitis C Antibody (Neg) HCV RNA Qual (TMA) Pending 03/24/20 03/24/20 03/24/20 Range/Units 04:02 04:02 04:02 WBC (4.8-10.8) K/uL RBC (4.7-6.1) M/uL Hgb (14.0-18.0) g/dL Hct (42-52) % MCV (80-100) fL MCH (25-34) pg MCHC (32-36) g/dL RDW Std Deviation (36.4-46.3) fL RDW Coeff of Tristan (11.5-14.5) % Plt Count (130-400) K/uL MPV (7.4-10.4) fL Immature Gran % (Auto) % Neut % (Auto) % Lymph % (Auto) % [place] % (Auto) % Eos % (Auto) % Baso % (Auto) % Immature Gran # (Auto) (0.00-0.02) K/uL Neut # (Auto) (1.4-6.5) K/uL Lymph # (Auto) (1.2-3.4) K/uL [place] # (Auto) (0.11-0.59) K/uL Eos # (Auto) (0-0.5) K/uL Baso # (Auto) (0-0.2) K/uL Sample Site POC pH (7.35-7.45) POC pCO2 (35-46) mmHg POC pO2 (80-95) mmHg POC HCO3 (19-24) hermann/L POC Total CO2 (24-31) mmol/L POC Base Excess (-9-1.8) hermann/L POC ABG O2 Sat (90-95) % Maykel Test O2 Delivery Device POC O2 Rate Minute Ventilation POC FiO2 % Tidal Volume PEEP Sodium 143 (136-145) mmol/L Potassium 3.4 L (3.5-5.1) mmol/L Chloride 107 (98-107) mmol/L Carbon Dioxide 29 (21-32) mmol/L Anion Gap 7.0 (3-11) BUN 32 H (7-18) mg/dl Creatinine 1.74 H (0.6-1.4) mg/dl Est Cr Clr Drug Dosing 45.8 ml/min Est GFR ( Amer) 46.3 Est GFR (Non-Af Amer) 40.0 BUN/Creatinine Ratio 18.4 (10-20) Glucose 123 H (70-99) mg/dl POC Glucose (70-99) mg/dl Calcium 8.6 (8.5-10.1) mg/dl Phosphorus 2.8 D (2.5-4.9) mg/dl Magnesium 2.3 (1.8-2.4) mg/dl Total Bilirubin 0.7 (0.2-1) mg/dl AST 155 H (15-37) U/L ALT 283 H (12-78) U/L Alkaline Phosphatase 51 (45-117) U/L Total Creatine Kinase 43 (39-308) U/L Total Protein 6.6 (6.4-8.2) gm/dl Albumin 3.1 L (3.4-5.0) gm/dl Globulin 3.5 (2.5-4.0) gm/dl Albumin/Globulin Ratio 0.9 (0.9-2) Procalcitonin (0-0.5) ng/ml Hepatitis A IgM Ab Pending Hep Bs Antigen Neg (Neg) Hep B Core IgM Ab Pending Hepatitis C Antibody Prelim Pos A (Neg) HCV RNA Qual (TMA) 03/24/20 03/23/20 03/23/20 Range/Units 04:02 23:24 19:02 WBC 10.58 (4.8-10.8) K/uL RBC 4.40 L (4.7-6.1) M/uL Hgb 13.2 L (14.0-18.0) g/dL Hct 40.7 L (42-52) % MCV 92.5 (80-100) fL MCH 30.0 (25-34) pg MCHC 32.4 (32-36) g/dL RDW Std Deviation 51.8 H (36.4-46.3) fL RDW Coeff of Tristan 15.3 H (11.5-14.5) % Plt Count 185 (130-400) K/uL MPV 11.1 H (7.4-10.4) fL Immature Gran % (Auto) 0.9 % Neut % (Auto) 73.4 % Lymph % (Auto) 12.1 % [place] % (Auto) 12.9 % Eos % (Auto) 0.5 % Baso % (Auto) 0.2 % Immature Gran # (Auto) 0.09 H (0.00-0.02) K/uL Neut # (Auto) 7.78 H (1.4-6.5) K/uL Lymph # (Auto) 1.28 (1.2-3.4) K/uL [place] # (Auto) 1.36 H (0.11-0.59) K/uL Eos # (Auto) 0.05 (0-0.5) K/uL Baso # (Auto) 0.02 (0-0.2) K/uL Sample Site POC pH (7.35-7.45) POC pCO2 (35-46) mmHg POC pO2 (80-95) mmHg POC HCO3 (19-24) hermann/L POC Total CO2 (24-31) mmol/L POC Base Excess (-9-1.8) hermann/L POC ABG O2 Sat (90-95) % Maykel Test O2 Delivery Device POC O2 Rate Minute Ventilation POC FiO2 % Tidal Volume PEEP Sodium (136-145) mmol/L Potassium (3.5-5.1) mmol/L Chloride (98-107) mmol/L Carbon Dioxide (21-32) mmol/L Anion Gap (3-11) BUN (7-18) mg/dl Creatinine (0.6-1.4) mg/dl Est Cr Clr Drug Dosing ml/min Est GFR ( Amer) Est GFR (Non-Af Amer) BUN/Creatinine Ratio (10-20) Glucose (70-99) mg/dl POC Glucose 115 H 101 H (70-99) mg/dl Calcium (8.5-10.1) mg/dl Phosphorus (2.5-4.9) mg/dl Magnesium (1.8-2.4) mg/dl Total Bilirubin (0.2-1) mg/dl AST (15-37) U/L ALT (12-78) U/L Alkaline Phosphatase (45-117) U/L Total Creatine Kinase (39-308) U/L Total Protein (6.4-8.2) gm/dl Albumin (3.4-5.0) gm/dl Globulin (2.5-4.0) gm/dl Albumin/Globulin Ratio (0.9-2) Procalcitonin (0-0.5) ng/ml Hepatitis A IgM Ab Hep Bs Antigen (Neg) Hep B Core IgM Ab Hepatitis C Antibody (Neg) HCV RNA Qual (TMA) 03/23/20 03/23/20 Range/Units 14:04 12:00 WBC (4.8-10.8) K/uL RBC (4.7-6.1) M/uL Hgb (14.0-18.0) g/dL Hct (42-52) % MCV (80-100) fL MCH (25-34) pg MCHC (32-36) g/dL RDW Std Deviation (36.4-46.3) fL RDW Coeff of Tristan (11.5-14.5) % Plt Count (130-400) K/uL MPV (7.4-10.4) fL Immature Gran % (Auto) % Neut % (Auto) % Lymph % (Auto) % [place] % (Auto) % Eos % (Auto) % Baso % (Auto) % Immature Gran # (Auto) (0.00-0.02) K/uL Neut # (Auto) (1.4-6.5) K/uL Lymph # (Auto) (1.2-3.4) K/uL [place] # (Auto) (0.11-0.59) K/uL Eos # (Auto) (0-0.5) K/uL Baso # (Auto) (0-0.2) K/uL Sample Site POC pH (7.35-7.45) POC pCO2 (35-46) mmHg POC pO2 (80-95) mmHg POC HCO3 (19-24) hermann/L POC Total CO2 (24-31) mmol/L POC Base Excess (-9-1.8) hermann/L POC ABG O2 Sat (90-95) % Maykel Test O2 Delivery Device POC O2 Rate Minute Ventilation POC FiO2 % Tidal Volume PEEP Sodium 142 (136-145) mmol/L Potassium 4.0 (3.5-5.1) mmol/L Chloride 108 H (98-107) mmol/L Carbon Dioxide 25 (21-32) mmol/L Anion Gap 9.0 (3-11) BUN 37 H (7-18) mg/dl Creatinine 1.90 H (0.6-1.4) mg/dl Est Cr Clr Drug Dosing 45.7 ml/min Est GFR ( Amer) 41.7 Est GFR (Non-Af Amer) 35.9 BUN/Creatinine Ratio 19.5 (10-20) Glucose 106 H (70-99) mg/dl POC Glucose 117 H (70-99) mg/dl Calcium 8.8 (8.5-10.1) mg/dl Phosphorus (2.5-4.9) mg/dl Magnesium (1.8-2.4) mg/dl Total Bilirubin 0.6 (0.2-1) mg/dl AST 203 H (15-37) U/L ALT 273 H (12-78) U/L Alkaline Phosphatase 49 (45-117) U/L Total Creatine Kinase (39-308) U/L Total Protein 6.4 (6.4-8.2) gm/dl Albumin 3.2 L (3.4-5.0) gm/dl Globulin 3.2 (2.5-4.0) gm/dl Albumin/Globulin Ratio 1.0 (0.9-2) Procalcitonin (0-0.5) ng/ml Hepatitis A IgM Ab Hep Bs Antigen (Neg) Hep B Core IgM Ab Hepatitis C Antibody (Neg) HCV RNA Qual (TMA) Diagnostic Findings CXR image personally reviewed by me and agree with the following report: XR chest 1V portable CLINICAL HISTORY: 64 years-old Male presenting with f/u. TECHNIQUE: Portable upright AP view of the chest was obtained. COMPARISON: 03/23/2020. FINDINGS: Endotracheal tube may be present though is difficult to visualize. This appears to be located within the upper thoracic trachea, significant distance from the katelin. Nasogastric tube descends below the diaphragm, terminus not visualized. Numerous external overlying leads to grating evaluation. Left subclavian implanted cardiac defibrillator with leads to the right atrium, right ventricula r apex, and left ventricle via the coronary sinus. Atherosclerosis of the aortic arch. Cardiac silhouette moderately enlarged. Significant interval decrease in right pleural effusion and/or right basilar opacity. A pleural effusion is not evident on the current exam. Only mild added density at the right lung base may be present. No pneumothorax. Degenerative changes of the thoracic spine. Upper abdomen normal. IMPRESSION: 1. Significant interval decrease in the right pleural effusion or right basilar consolidation. Trace residual right basilar infiltrate remains. 2. Cardiomegaly without significant volume overload on the current exam. 3. Endotracheal tube difficult to visualize though grossly appropriately positioned. PG Care Time/CCT Total # of Minutes Spent Total Time Spent with Patient: Total time spent is greater than 50% in coordination of care (as documented) at patient's floor/unit and/or counseling patient: Coding Level of Care Code 19584 Subseq Hosp Care Lvl 3 Diagnoses Respiratory failure J96.90 Acute systolic (congestive) heart failure I50.21 Elevated LFTs R79.89 Fever R50.9 Diabetes mellitus, type 2 E11.9 Coronary artery disease I25.10 Associated angina: without angina Coronary Disease-Associated Artery/Lesion type: [place] artery [place] vs. transplanted heart: [place] heart COPD (chronic obstructive pulmonary disease) J44.9 Hypertension I10 Hypertension type: essential hypertension ICD (implantable cardioverter-defibrillator) in place Z95.810 Ischemic cardiomyopathy I25.5 Obstructive sleep apnea of adult G47.33 Stage III chronic kidney disease N18.3 DVT prophylaxis Z29.9 (1) Coronary artery disease Associated angina: without angina Coronary Disease-Associated Artery/Lesion type: [place] artery [place] vs. transplanted heart: [place] heart Qualified Code(s): I25.10 - Atherosclerotic heart disease of [place] coronary artery without angina pectoris (2) Hypertension Hypertension type: essential hypertension Qualified Code(s): I10 - Essential (primary) hypertension
[2020-03-24] MEDS: INSULIN ASPART 100 UNITS/ML 3 ML PEN SC SCH ×3 (12:16→20:57)
--- NOTE | 2020-03-24 13:54 | Cardiology Progress Note ---
Date of Service March 24, 2020 Assessment & Plan (1) Acute systolic (congestive) heart failure: Patient dramatically clinically improved over the past 24 hours. Chest x-ray, renal function, and exam show resolution of acute CHF. He still appears mildly hypervolemic and his renal function is favorable (creatinine back to baseline), therefore would continue diuresis. (2) Chronic systolic heart failure: -Would resume his maintenance bumetanide 2 mg daily upon discharge, but lower his trigger weight for additional dosing (bumetanide 3 mg total) from 206 pounds to 205 pounds. -In addition, would add metolazone 2.5 mg (taken 1/2-hour before bumetanide) to be taken for a trigger weight of 207 pounds or greater. He should take a potassium supplement (20 mEq) with each metolazone dose. -Close follow-up in heart failure clinic with Bethany Hi PA-C should be arranged (she follows him by phone). -Given his variable renal function, would hold off on Entresto, CLIFTON inhibitor, or angiotensin receptor juanito until he has demonstrated some degree of renal equilibrium. If warranted, these can be started as an outpatient. (3) Ischemic cardiomyopathy: Fortunately, no evidence of myocardial ischemia during this hospitalization. (4) ICD (implantable cardioverter-defibrillator) in place: Functioning appropriately. (5) History of ventricular tachycardia: No ventricular dysrhythmias despite significant adrenergic stress of respiratory failure. Continue amiodarone and mexiletine. (6) Hypertension: BP has been normotensive to mildly hypotensive (which is acceptable and appropriate given his degree of systolic dysfunction). No change in his vasoactive regimen. Admission and Anticipated Discharge Date Admission Date: March 23, 2020 Anticipated date of discharge: 03/26/20 Subjective Patient is doing well, extubated earlier today and has no complaints presently. Denies chest pain or dyspnea. He noted that prior to admission his weight is generally 204-206 pound range, he had only gained 1-2 lbs. (maximum weight 207 pounds) before he became increasingly dyspneic and ultimately developed respiratory failure. He denies any chest pain or other ischemic symptoms. Physical Exam Physical Exam: Patient appears comfortable sitting in bed. Afebrile. BP 126/71 mmHg. Pulse 62 and regular. Respirations 18. Skin: No ecchymoses or generalized lesions. HEENT: Unremarkable. Neck: Jugular venous pulse 1/[address] the angle of the jaw at 30 degrees, no carotid bruits. Lungs: Dullness at the bases, no obvious crackles or wheezes, good airflow. No accessory muscle use, intercostal retraction, or abdominal paradox. Cardiac: Regular rhythm without obvious murmur, gallop, or rub. Abdomen: Nondistended. Extremities: No edema, peripheral pulses palpable. Neurologic: Alert, interactive, grossly nonfocal. Results & Data ([facility]) Laboratory Results 03/24/20 04:02 BUN 32 H Creatinine 1.74 H Diagnostic Findings Monitor showed paced rhythm with no dysrhythmias. Chest x-ray today showed near complete resolution of pulmonary edema. PG Care Time/CCT Total # of Minutes Spent Total Time Spent with Patient: Total time spent is greater than 50% in coordination of care (as documented) at patient's floor/unit and/or counseling patient: Coding Level of Care Code 40228 Subseq Hosp Care Lvl 3 Diagnoses Acute systolic (congestive) heart failure I50.21 Chronic systolic heart failure I50.22 Ischemic cardiomyopathy I25.5 ICD (implantable cardioverter-defibrillator) in place Z95.810 History of ventricular tachycardia Z86.79 Hypertension I10 Hypertension type: essential hypertension (1) Hypertension Hypertension type: essential hypertension Qualified Code(s): I10 - Essential (primary) hypertension
[2020-03-25] MEDS: TRAMADOL HCL 50 MG TABLET PO PRN (02:38)
[2020-03-25] MEDS: HEPARIN SOD 5,000 UNIT/0.5 ML VIAL SQ SCH (05:45)
[2020-03-25 05:59] LABS: Hepatitis A Antibody IgM NON-REACTIVE (NON-REACTIVE); Hepatitis B Core Antibody IgM NON-REACTIVE (NON-REACTIVE)
[2020-03-25 07:12] LABS: Basophils # (auto) 0.04 K/uL (0-0.2); Basophils % (auto) 0.5 %; Eosinophils # (auto) 0.18 K/uL (0-0.5); Eosinophils % (auto) 2.3 %; Hematocrit (blood only) 39.9 % (42-52); Hemoglobin 12.8 g/dL (14.0-18.0); Immature Granulocytes # (auto) 0.13 K/uL (0.00-0.02); Immature Granulocytes % (auto) 1.7 %; Lymphocytes % (auto) 18.2 %; Mean Corpuscular Hemoglobin 29.8 pg (25-34); Mean Corpuscular Hgb Conc 32.1 g/dL (32-36); Mean Platelet Volume 10.5 fL (7.4-10.4); Monocytes # (auto) 1.15 K/uL (0.11-0.59); Neutrophils # (auto) 4.78 K/uL (1.4-6.5); Neutrophils % (auto) 62.3 %; Platelet Count 171 K/uL (130-400); RDW Coefficient of Variation 15.1 % (11.5-14.5); RDW Standard Deviation 51.1 fL (36.4-46.3); Red Blood Count 4.29 M/uL (4.7-6.1); White Blood Count 7.68 K/uL (4.8-10.8)
[2020-03-25 07:39] LABS: BUN Creatinine Ratio 16.4 (10-20); Bilirubin Direct 0.2 mg/dl (0-0.2); Calcium 8.9 mg/dl (8.5-10.1); Creatinine Clr Calc Pharmacy 53.2 ml/min; Est GFR (African American) 55.4; Est GFR (Non-African American) 47.8; Magnesium 2.2 mg/dl (1.8-2.4); Potassium 3.6 mmol/L (3.5-5.1)
[2020-03-25 07:42] LABS: Bilirubin,Total 0.8 mg/dl (0.2-1); Total Protein 6.2 gm/dl (6.4-8.2)
[2020-03-25] MEDS: MEXILETINE HCL 150 MG CAPSULE PO SCH (07:42)
[2020-03-25] MEDS: ASPIRIN 81 MG ECTAB PO SCH (07:42)
[2020-03-25] MEDS: carvediloL 12.5 MG TAB PO SCH (07:43)
[2020-03-25] MEDS: AMIODARONE 200 MG TAB PO SCH (07:45)
[2020-03-25] MEDS: ISOSORBIDE MONO EXTENDED REL 30 MG TABCR PO SCH (07:46)
[2020-03-25] MEDS: INSULIN ASPART 100 UNITS/ML 3 ML PEN SC SCH ×2 (08:40→12:15)
[2020-03-25] MEDS: FUROSEMIDE 40 MG in SYRINGE 0 ML IV SCH (09:29)
--- NOTE | 2020-03-25 10:50 | Cardiology Progress Note ---
Date of Service March 25, 2020 Assessment & Plan (1) Acute systolic (congestive) heart failure: Patient doing well, continues to diuresis with further improvement in renal function . Hemodynamics favorable on current regimen. (2) Chronic systolic heart failure: Did discuss with the patient the importance of using Bumex as a "threshold" drug, although he could take the 1 mg dose at times, if this is ineffective he should promptly increase his dose to 2 mg (taken later the same day or the next day, depending upon symptoms). Upon discharge recommend the following sliding scale diuretic regimen: weight bumex dose 202 1 mg 203-204 2 mg 205-206 3 mg 207 or > 3 mg + metolazone 2.5 mg + KCl 20 mEq Please arrange follow-up in heart failure clinic with Bethany Hi PA-C (she follows him by phone). Given his variable renal function, would hold off on Entresto, CLIFTON inhibitor, or angiotensin receptor juanito until he has demonstrated some degree of renal equilibrium. If warranted, these can be started as an outpatient. (3) Ischemic cardiomyopathy: Fortunately, no evidence of myocardial ischemia during this hospitalization. (4) ICD (implantable cardioverter-defibrillator) in place: Functioning appropriately. (5) History of ventricular tachycardia: No ventricular dysrhythmias despite significant adrenergic stress of respiratory failure. Continue amiodarone and mexiletine. (6) Hypertension: BP has been normotensive to mildly hypotensive (which is acceptable and appropriate given his degree of systolic dysfunction). No change in his vasoactive regimen. Admission and Anticipated Discharge Date Admission Date: March 23, 2020 Anticipated date of discharge: 03/26/20 Subjective Patient is doing well, extubated yesterday and has no complaints presently. Denies chest pain or dyspnea. I/O -1850 overnight. Upon further review of his clinical course prior to admission he noted that he had been taking Bumex 1 mg early in the morning and then a second 1 mg dose later in the morning if he did not respond to the first dose (rather than taking Bumex 2 mg at 1 time). He did note a quite variable diuresis after the Bumex. Physical Exam Physical Exam: Patient appears comfortable sitting in bed. Afebrile. BP 129/73 mmHg. Pulse 63 and regular. Respirations 18. Skin: No ecchymoses or generalized lesions. HEENT: Unremarkable. Neck: Jugular venous pulse less than 1/[address] the angle of the jaw at 90 degrees, no carotid bruits. Lungs: Dullness at the bases, no obvious crackles or wheezes, good airflow. No accessory muscle use, intercostal retraction, or abdominal paradox. Cardiac: Regular rhythm without obvious murmur, gallop, or rub. Abdomen: Nondistended. Extremities: No edema, peripheral pulses palpable. Neurologic: Alert, interactive, grossly nonfocal. Results & Data ([facility]) Vital Signs (Past 12 Hours) Vital Signs Temp Pulse Pulse Resp BP BP Pulse Ox 03/25/20 08:13 94 03/25/20 08:00 63 03/25/20 07:42 97.9 F 61 18 129/73 94 03/25/20 00:00 66 03/24/20 23:21 97.9 F 66 18 106/65 93 Laboratory Results 03/25/20 06:44 BUN 25 H Creatinine 1.50 H PG Care Time/CCT Total # of Minutes Spent Total Time Spent with Patient: Total time spent is greater than 50% in coordination of care (as documented) at patient's floor/unit and/or counseling patient: Coding Level of Care Code 14669 Subseq Hosp Care Lvl 3 Diagnoses Acute systolic (congestive) heart failure I50.21 Chronic systolic heart failure I50.22 Ischemic cardiomyopathy I25.5 ICD (implantable cardioverter-defibrillator) in place Z95.810 History of ventricular tachycardia Z86.79 Hypertension I10 Hypertension type: essential hypertension (1) Hypertension Hypertension type: essential hypertension Qualified Code(s): I10 - Essential (primary) hypertension
--- NOTE | 2020-03-25 13:10 | Discharge Summary ---
Date of Service March 25, 2020 Admission HPI Per Admitting Provider Claudio Vee is a 64yo C male with multiple medical problems to include Asthma/COPD on home O2 as needed, CAD with CHF/ICM - last EF 30-35% per echo in March 2019, BiV AICD in place. Patient presented to [facility] with complaint of SOB, progressively worsening x 2 days. On arrival he was afebrile, HD stable, tachypneic with RR of 24, saturating 93%. He was placed on BiPAP for increased work of breathing and ultimately intubated. Patient transferred to [facility] for MICU care. Per discussion with his , Patsy, patient has been having progressive dyspnea for the last two weeks. He has needed O2 more frequently at home. He woke up this morning and felt fine, he went fishing with his granddaughter. In the afternoon he became more short of breath requiring O2. He has had a cough productive for thick sputum. Denies fevers/chills/CP. No sick contacts or recent travel. No known contact with Covid-19 positive individuals. states that his presentation is quite similar to prior exacerbations of CHF. She states that he is compliant with his medications but has been eating a bit more salt and drinking more fluid recently. He has had some sweats and a 2# weight gain. Principal Diagnosis Acute respiratory failure with hypoxia requiring mechanical ventilation, Acute on chronic systolic CHF Discharge Exam Constitutional WD/WN, vitals as above standing up walking around room Eyes + anicteric sclerae Neck trachea midline, no thyromegaly Respiratory normal respiratory effort, lungs clear to auscultation Cardiovascular RRR, no murmur, no edema Chest (Breasts) Chest: normal inspection of chest Gastrointestinal (Abdomen) normal bowel sounds, soft, nontender, no hepatosplenomegaly Musculoskeletal Extremities: extremities normal to inspection; no cyanosis and no clubbing Skin no rashes, warm and dry Neurologic moves all extremities Psychiatric A+Ox3, euthymic affect Lymphatic no lymphedema Discharge Data Allergies Allergy/AdvReac Type Severity Reaction Status Date / Time budesonide Allergy Unknown TACHYCARDIA, Verified 01/23/20 14:54 SOB carbamazepine Allergy Unknown TACHYCARDIA, Verified 01/23/20 14:54 PANIC ATTACK cyclobenzaprine Allergy Unknown UNK Verified 01/23/20 14:54 doxycycline Allergy Unknown ABD PAIN Verified 01/23/20 14:54 fluticasone Allergy Unknown UNK Verified 01/23/20 14:54 formoterol Allergy Unknown TACHYCARDIA, Verified 01/23/20 14:54 SOB salmeterol Allergy Unknown ANAPHYLAXIS Verified 01/23/20 14:54 morphine Allergy Unknown Verified 01/23/20 14:54 tiotropium Allergy Unknown Verified 01/23/20 14:54 [From Spiriva with HandiHaler] digoxin AdvReac Unknown BACK AND Verified 01/23/20 14:54 STOMACH PAIN metformin AdvReac Unknown MUSCLE Verified 01/23/20 14:54 ACHES IN BVACK AND KIDNEYS Sodium Propionate Allergy Unknown SHORTNESS Uncoded 01/23/20 14:54 OF BREATH Consultations 03/23/20 00:44 Consult Bakery Assistant Routine 03/23/20 11:44 Consult Cardiology Routine Ordered Studies CXR Hospital Course (1) Respiratory failure: This patient is a 64yo C male with history of COPD, CAD/ICM, CKD, DM, HTN, HLP presenting from [facility] with acute respiratory failure requiring intubation thought to be secondary to acute on chronic systolic CHF, but also with a history of COPD. ABG 7.28/54/98/25 performed on FiO2 80% upon admission and ABG then improved at 7.38/40 3/132 on 50% FiO2. CXR with bilateral airspace disease right greater than left, favor CHF. Also with a history of COPD/Asthma COVID-19 test was negative Leukocytosis now resolved without receiving any antibiotics-could've been stress response Had some [id number], could potentially have a pneumonia but procalcitonin negative, lactate negative, now resolved Extubated on 03/24 and now weaned to room air with POx 95%, doing very well s/p diuresis CXR 03/24 much improved -revert to Bumex sliding scale dose as per Cardiology recs: weight bumex dose 202 1 mg 203-204 2 mg 205-206 3 mg 207 or > 3 mg + metolazone 2.5 mg + KCl 20 mEq -Follow daily weights, low Na+ diet at home, and fluid restrict 1800mL daily -f/u with CHF clinic in 1 week -Follow cultures-no growth -no abx needed (2) Acute systolic (congestive) heart failure: Patient with extensive cardiac history to include CAD, ICM with EF of 15- 20% per echo in January 16, 2020, history of VT s/p Biventricular AICD, HTN, HLP. He has had multiple hospitalizations in the past for CHF exacerbation, last in December 2019 requiring MICU care (consult from 01/16/20) . He follows with Dr. Hagan of Cardiology, last seen on 01/29/20. Patients current symptoms of dyspnea and respiratory distress most likely secondary to acute decompensated CHF. Patient's endorses 2 weeks of progressive symptoms, increased use of intermittent O2 at home. She states that symptoms are similar to prior exacerbations of CHF. Possibly triggered by dietary indiscretion with increased Na and fluid intake. Patient intubated prior to arrival. Presently hemodynamically stable. Troponin negative. EKG with no acute ischemic findings. Patient presently 208#, dry weight of 205# per record review. Patient was previously on Entresto which was discontinued due to intolerance. He has also experienced symptomatic hypotension in the past with increased in medications for his CHF. Echocardiogram from 12/2019 shows EF 15-20% -Lasix 40mg IV administered at [facility]. 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 -Appreciate cardiology consultation -Continue Amiodarone and Mexilitene at home doses -Continue Isosorbide and Carvedilol -add ACEi back in as outpt with CHF clinic as able to, could not tolerate Entresto -Continue ASA -sliding scale diuretics as above (3) Elevated LFTs: AST and ALT are in the 200s and now continue to be improved today Pt denies any abdominal pain has a h/o HCV treated 10 years ago and thinks he was cured Could be hepatic congestion from acute CHF, although total bilirubin is normal -Follow LFTs in one week -Check hepatitis panel-HCV antibody positive, A and B negative, HCV RNA pending at time of discharge--> f/u with PCP (4) Fever: had some low grade fevers to 38 degrees on 03/23 with leukocytosis now resolved, never received any antibiotics Blood and sputum cxs no growth to date With no obvious source of infection-not likely PNA as per my d/w Pulm COVID-19 is negative UA is normal, procalcitonin is negative x 2, lactate negative -Follow blood cultures, sputum/tracheal aspirate culture--> no growth to date (5) Diabetes mellitus, type 2: DM II with hyperglycemia improved control now -restart oral glimepiride at home Hemoglobin A1c was 7.3% in 12/2019 (6) Coronary artery disease: History of inoperable CAD -Continue aspirin, carvedilol, isosorbide Is not on a statin-unclear why-defer to Cardiology (7) COPD (chronic obstructive pulmonary disease): no wheezing not on inhalers, no PFTs in system found by Pulm -monitor (8) Hypertension: Continue home meds of carvedilol 37.5 mg p.o. twice daily, isosorbide Diuresing (9) ICD (implantable cardioverter-defibrillator) in place: As above (10) Ischemic cardiomyopathy: As above (11) Obstructive sleep apnea of adult: Continue CPAP at nighttime and with naps at 11cm H2O (12) Stage III chronic kidney disease: Patient with CKD, baseline Cr reported to be 1.6 - 1.8. With acute kidney injury as evidenced by worsening of renal function on admission with BUN=41 and Cr= 2.45. Hyperkalemia on initial labs - K=5.7. History of renal mass thought to be malignant - deemed inoperable due to underlying medical comorbidities. -Treatment of hyperkalemia with Insulin/D50/Calcium gluconate and Lasix and now potassium is normal/low Renal function is improved with creatinine down to 1.5 today after diuresis -Avoid nephrotoxins -renally dose meds when appropriate -follow BMP as outpt (13) DVT prophylaxis: Heparin Code - Full per discussion with patient's , Patsy Vee Dispo -stable for dc to home Total Time Total Time Spent Total Time Spent (In Minutes): 35 min Total Time Includes: Examination of the Patient, Discharge Planning, Medication Reconciliation and Communication With Other Providers (Cardiology) Discharge Plan Discharge Items Patient Disposition: Home - Self-Care Reason For Visit: SHORTNESS OF BREATH,CHF Discharge Diagnosis: Acute respiratory failure with hypoxia, Acute on chronic systolic Congestive heart failure Condition on Discharge: Good Activity: Resume your previous activity Non-emergency contact: Primary Care Provider and Partition Making Machine Operator Call non-emergency contact if: you have any medication questions and your sym ptoms worsen Follow-up/Referrals: Camelia Barclay DO [Primary Care Provider] - (Please call for a follow up appointment within 2 weeks.) Monique Hi PA-C [Physician Senior Salesforce Developer] - (Ms. Hi will contact you with a follow up appointment with the CHF clinic.) Diet: Low Sodium (2gm) Fluids: 1800ml (7 cups) Ambulatory Orders: Comprehensive Metabolic Panel (Routine) Timeframe: 1 Week Location: Determined by Patient Ordered By: Mayte Sim Attending Provider Instructions: You were admitted with low oxygen levels and respiratory failure requiring intubation and ventilation for excessive fluid from your congestive heart failure. You were given IV lasix and had a rapid improvement. Please take your Bumex as per the directions below from Dr. Johnson of Cardiology: Weight Bumex dose 202 1 mg 203-204 2 mg 205-206 3 mg 207 or > 3 mg + metolazone 2.5 mg (extra booster pill) + KCl 20 mEq Please have your liver blood work checked in 1 week as your liver enzymes were abnormal (although were improving) at the time of discharge. Call your Primary Care doctor if any of the following symptoms or problems start or get worse: * Shortness of breath or difficulty breathing * Wake up at night short of breath * Chest pain * Cough * Swelling of your hands, feet, or legs * More fatigued or tired with your normal activity * Palpitations - sudden fast heart beats WEIGHT * Weigh yourself every morning after using the bathroom. * Use the same scale. * Wear the same amount of clothing. * Write your weight down on a chart. * Call your Primary Care doctor if you gain more than 2-3 pounds in 1-2 days. MEDICATIONS * Use this discharge instruction sheet for medication instructions. * Take your medications at the time your doctor ordered. * Do not skip a dose of your medicines. * If you miss a dose of medicine, take it as soon as possible, but DO NOT DOUBLE A DOSE. * Read your medicine information when you get home. * Know all of the side effects of your medicine. If in doubt, ask your pharmacist * Call your Primary Care doctor's office if you have any side effects. * Be sure all of your doctors know what medicine and herbs you take (including cold, flu, and herbal medicine). Take the following with you to your follow-up doctor appointments: * Weight Chart * Medication List * List of questions Do not drink excessive alcohol, beer or wine. Pending Studies at Discharge: Yes (Final blood cultures-no growth to date; Sputum culture, Hep C viral load) Stand-Alone Forms: [facility] Medications and DC Order Prescriptions: New metolazone 2.5 mg tablet 2.5 mg PO DAILY PRN (Reason: weight gain to 207 lbs) Qty: 10 RF: 0 potassium chloride 20 mEq tablet extended release 20 meq PO DAILY PRN (Reason: only to be taken with metoloazone) Qty: 10 RF: 0 bumetanide 1 mg tablet 1 mg PO QAM Qty: 90 RF: 1 Continued ammonium lactate 12 % lotion 1 appln TOP DAILY PRN (Reason: dry skin) Qty: 227 RF: 1 triamcinolone acetonide 0.1 % cream 1 appln TOP TID RF: 0 mexiletine 150 mg capsule 150 mg PO BID Qty: 180 RF: 1 isosorbide mononitrate 30 mg tablet extended release 24 hr 30 mg PO QAM Qty: 90 RF: 1 nystatin 100,000 unit/gram cream 1 appln TOP BID Qty: 15 RF: 1 Bifidobacterium infantis See Rx Instructions PO DAILY RF: 0 carvedilol 12.5 mg tablet 37.5 mg PO BID Qty: 120 RF: 0 Fiber Smooth Powder 1 tbs PO TID RF: 0 tramadol 50 mg tablet 50 mg PO Q6H PRN (Reason: pain) Qty: 30 RF: 0 glimepiride 2 mg tablet 2 mg PO DAILY RF: 0 amiodarone 200 mg tablet 200 mg PO DAILY RF: 0 nitroglycerin 0.4 mg tablet, sublingual 0.4 mg sublingual Q5M PRN (Reason: Chest Pain) RF: 0 aspirin [Ecotrin Low Strength] 81 mg Tablet,Delayed Release (Dr/Ec) 81 mg PO DAILY RF: 0 cholecalciferol (vitamin D3) 25 mcg (1,000 unit) tablet 2,000 units PO DAILY RF: 0 fluticasone propionate 50 mcg/actuation spray,suspension 2 sprays intranasal DAILY RF: 0 coenzyme Q10 100 mg capsule 200 mg PO DAILY RF: 0 Discharge Orders: Discharge Order (Routine); Ordered 03/25/20 Ordered By: Mayte Renee/Other Patient Handouts: Tips Using Less Salt, Low-Salt Choices, Diet Low Salt Dc, Fluids Limiting Dc Admission Data Admit Date/Time: 03/23/20 00:40 Attending Provider: Mayte Magana Admit Provider: Luz Elena Faith Primary Care Provider: Camelia Barclay Other Providers: Tito Hutchins ; Candelario Johnson Coding Level of Care Code D/C Day Management >30 mins Diagnoses Respiratory failure J96.90 Acute systolic (congestive) heart failure I50.21 Elevated LFTs R79.89 Fever R50.9 Diabetes mellitus, type 2 E11.9 Coronary artery disease I25.10 Coronary Disease-Associated Artery/Lesion type: jackson artery [place] vs. transplanted heart: jackson heart Associated angina: without angina COPD (chronic obstructive pulmonary disease) J44.9 Hypertension I10 Hypertension type: essential hypertension ICD (implantable cardioverter-defibrillator) in place Z95.810 Ischemic cardiomyopathy I25.5 Obstructive sleep apnea of adult G47.33 Stage III chronic kidney disease N18.3 DVT prophylaxis Z29.9
== END 2020-03-25 14:11 | disposition home or self-care (01) | DRG 208 ==
LOC: SUATTDRO 03-23 00:40 → 1E 03-23 00:40 → 2S 03-24 11:03

== ENCOUNTER 2020-04-09 09:25 | Inpatient (IN) ==
[2020-04-09] MEDS ORDERED: ONDANSETRON INJ 2 MG/ML 2 ML VIAL IV PRN (09:41)
[2020-04-09] MEDS ORDERED: DEXTROSE 50% 50 ML SYRINGE IV PRN (09:44)
[2020-04-09] MEDS ORDERED: CARBOHYDRATES FOR HYPOGLYCEMIA PO PRN (09:44)
[2020-04-09] MEDS ORDERED: GLUCOSE 10 TABS/TUBE PO PRN (09:44)
[2020-04-09] MEDS ORDERED: GLUCOSE 40% GEL 15 GM TUBE PO PRN (09:44)
[2020-04-09] MEDS ORDERED: GLUCAGON FOR INJ 1 MG VIAL SQ PRN (09:44)
--- NOTE | 2020-04-09 09:52 | History & Physical Report ---
Date of Service April 09, 2020 Assessment & Plan (1) Respiratory failure: Acute respiratory failure with hypoxia and hypercarbia secondary to acute on chronic systolic CHF - Admit to ICU - Intubated at OSH prior to direct transfer here, continue, trial extubation per director of home economics - Check ABG, procal, esr, crp, lactic acid - COVID-19 test in process, continue airborne precautions until test is negative, but doubtful this is infectious in nature - BCx x 2 - Check EKG -Follow chest x-ray -Received 1 dose of Lasix 80 mg IV in outside ER and already diuresing quite a bit-we will continue Bumex 2 mg IV twice daily - Daily weights, strict I/Os, alegria cath (2) Acute systolic (congestive) heart failure: With acute on chronic systolic CHF-severe - Has had multiple hospitalization for CHF including ventilator dependent respiratory failure -His weight is not up significantly from previous, unclear why he is having flash pulmonary edema that is recurrent -Is requiring Levophed at this time for blood pressure support during diuresis - Cardiology consult once out of the ICU- follows with Dr. Hagan - Respiratory failure likely due to acute decompensation - Trending troponin-has been negative at outside ER and negative upon arrival here many hours later-no evidence of ACS - EKG with paced rhythm, no ischemic changes evident - Last echo Dec 2019 with EF of 15-20% -We will plan to restart amiodarone and Mexilitene, isosorbide and carvedilol, asa when able to - Monitor renal function to determine if initiation of CL[place]ON or ARB suitable -- was not during most recent admission and patient has declined this in the past. -Daily weights, strict I's and O's -will consider palliative care consultation for end-stage CHF (3) ICD (implantable cardioverter-defibrillator) in place: - Noted (4) Ischemic cardiomyopathy: - Trend troponins, EKG as above, monitor for myocardial ischemia. (5) Hypertension: - PARCEL POST ORDER CLERK on BB and isosorbide, holding for now and is on vasopressor support (6) Dyslipidemia: - Not on statin therapy, ?intolerance (7) Coronary artery disease: - Hx of inoperable CAD -Currently holding home Asa, carvedilol, isosorbide - Not on statin therapy, ? intolerance (8) COPD (chronic obstructive pulmonary disease): - Not on inhalers as outpt - Consider formal PFTs as outpt (9) Asthma: - Noted (10) Obstructive sleep apnea of adult: - Cpap HS and with naps once extubated (11) Diabetes mellitus, type 2: - ISS with accuchecks ACHS - Last A1C = 7.3 on 01/17/20 - Hold glimeperide, will do insulin protocol as per ICU (12) Stage III chronic kidney disease: - Baseline Cr 1.6-1.8. -With acute kidney injury here with creatinine of 2.0 at outside hospital-is now improving here down to 1.6 which is his baseline after receiving IV Lasix - Hx of renal mass thought to be malignancy but pt is not a surgical candidate due to medical comorbidities - Renally dose medications, avoid nephrotoxins - Trend BMP with am labs (13) Vitamin D deficiency: - Cont supplementation (14) History of ventricular tachycardia: -Holding home Loxitane and amiodarone-restart when able to -Follow on telemetry (15) DVT prophylaxis: - teds, heparin subcu CODE: Full code Dispo: From home, likely to remain in the hospital x 2 days History of Present Illness Chief Complaint: Respiratory failure, transfer from [facility] ER Primary Care Provider: Camelia Barclay, This is a 64-year-old male with PMHx including asthma/COPD on home O2, CAD with CHF, ischemic cardiomyopathy, EF of 1520 % on echo December 2019, biventricular AICD in place, previous COVID-19 testing completed during last admission was negative. During previous admission from 03/23 to 03/25/2020, he required intubation due to acute respiratory failure thought to be due to acute on chronic systolic CHF. He was extubated successfully and did well after being diuresed. He represents today from [place] [facility] with acute respiratory failure, has already been intubated, repeat COVID testing is in process, and has been accepted into our ICU for further management. At [facility], he was found to have a CXR consistent with severe pulm edema vs infection, proBNP 7000, leukocytosis of 14k, and partition notcher 2.0. ABG was 7.19/58/105. He was given a dose of Lasix 80 mg IV x1 prior to arrival here. Upon admission, he is sedated and intubated, is in no acute distress. He is unable to provide any further history. Allergies Allergy/AdvReac Type Severity Reaction Status Date / Time budesonide Allergy Unknown TACHYCARDIA, Verified 01/23/20 14:54 SOB carbamazepine Allergy Unknown TACHYCARDIA, Verified 01/23/20 14:54 PANIC ATTACK cyclobenzaprine Allergy Unknown UNK Verified 01/23/20 14:54 doxycycline Allergy Unknown ABD PAIN Verified 01/23/20 14:54 fluticasone Allergy Unknown UNK Verified 01/23/20 14:54 formoterol Allergy Unknown TACHYCARDIA, Verified 01/23/20 14:54 SOB salmeterol Allergy Unknown ANAPHYLAXIS Verified 01/23/20 14:54 morphine Allergy Unknown Verified 01/23/20 14:54 tiotropium Allergy Unknown Verified 01/23/20 14:54 [From Spiriva with HandiHaler] digoxin AdvReac Unknown BACK AND Verified 01/23/20 14:54 STOMACH PAIN metformin AdvReac Unknown MUSCLE Verified 01/23/20 14:54 ACHES IN BVACK AND KIDNEYS Sodium Propionate Allergy Unknown SHORTNESS Uncoded 01/23/20 14:54 OF BREATH Home Medications Home Medications Medication Instructions Recorded Confirmed Type amiodarone 200 mg PO DAILY 07/22/19 03/31/20 History aspirin [Ecotrin Low Strength] 81 mg PO DAILY 07/22/19 03/31/20 History nitroglycerin 0.4 mg SUBLINGUAL Q5M PRN 07/22/19 03/31/20 History cholecalciferol (vitamin D3) 25 2,000 units PO DAILY tab 11/05/19 03/31/20 History mcg (1,000 unit) tablet coenzyme Q10 100 mg capsule 200 mg PO DAILY cap 11/05/19 03/31/20 History fluticasone propionate 50 2 sprays INTRANASAL DAILY ml 11/05/19 03/31/20 History mcg/actuation nasal spray,suspension isosorbide mononitrate 30 mg 30 mg PO QAM #90 tab 11/05/19 03/31/20 Rx tablet,extended release 24 hr mexiletine 150 mg capsule 150 mg PO BID #180 cap 11/05/19 03/31/20 Rx nystatin 100,000 unit/gram topical 1 appln TOP BID #15 gm 11/05/19 03/23/20 Rx cream triamcinolone acetonide 0.1 % 1 appln TOP TID 11/05/19 03/23/20 History topical cream Bifidobacterium infantis See Rx Instructions PO DAILY 01/21/20 03/31/20 History psyllium 1 tbs PO TID gm 01/23/20 03/31/20 History tramadol 50 mg tablet 50 mg PO Q6H PRN #30 tab 01/23/20 03/31/20 Rx ammonium lactate 12 % lotion 1 appln TOP DAILY PRN #227 gm 02/25/20 Rx bumetanide 1 mg PO QAM #90 tab 03/25/20 03/31/20 Rx metolazone 2.5 mg PO DAILY PRN #10 tab 03/25/20 03/31/20 Rx potassium chloride 20 meq PO DAILY PRN #10 tab 03/25/20 03/31/20 Rx blood sugar diagnostic #100 ea 04/08/20 Rx carvedilol 12.5 mg tablet 37.5 mg PO BID #540 tab 04/08/20 Rx glimepiride 2 mg tablet 2 mg PO DAILY #90 tab 04/08/20 Rx Past Med/Surg History Medical History Afib (Chronic) Allergic rhinitis (Acute) Asthma (Acute) Cervical radiculopathy (Acute) Chronic systolic heart failure COPD (chronic obstructive pulmonary disease) Coronary artery disease Degenerative cervical disc Diabetes mellitus, type 2 Dyslipidemia Hepatitis C History of ventricular tachycardia Hypertension Impotence, organic Ischemic cardiomyopathy EF 20% December 2019 Nephrolithiasis Obesity Obstructive sleep apnea of adult Osteoarthritis Peripheral neuropathy Renal mass Respiratory failure (03/23/20) Stage III chronic kidney disease Vitamin D deficiency (Chronic) Surgical History History of coronary artery stent placement ICD (implantable cardioverter-defibrillator) in place (07/2017) [place] biventricular ICD Family History Unknown Cardiac disorder Hypertension Diabetes Father Myocardial infarction Mother Myocardial infarction Denies family history of Ovarian cancer Prostate cancer Breast cancer Colorectal cancer Social History Preferred Language: Vietnamese Communication Ability: Unable Visual Impairment: No Limitations Hearing Ability: Normal Mechanical Developer Prover Required: No Beliefs That Will Affect Care: None marital status: Current Living Situation: Spouse Current Living Situation Comment: with & son current occupational status: retired Other Information That Helps Us Care for You: No Feels Safe at Home: Yes Safety Concerns: Feels Safe At This Time Smoking Status: Unknown if ever smoked caffeine: No Dental Care, Regularly: No Physical Activity Frequency: 5-6 Times per Week Physical Activity Frequency Comment: walking Seatbelt Use: always Sunscreen Use: No Review of Systems Review of Systems: Unobtainable due to endotracheal tube and Unobtainable due to reduced consciousness Physical Exam Physical Exam: I did not personally see the patient as he was being tested for COVID-19. Please refer to attending addendum for further information including ROS, PE. Results & Data Results & Data ([facility]) Laboratory Results 04/09/20 04/09/20 04/09/20 Range/Units 17:33 15:55 14:20 WBC (4.8-10.8) K/uL RBC (4.7-6.1) M/uL Hgb (14.0-18.0) g/dL Hct (42-52) % MCV (80-100) fL MCH (25-34) pg MCHC (32-36) g/dL RDW Std Deviation (36.4-46.3) fL RDW Coeff of Tristan (11.5-14.5) % Plt Count (130-400) K/uL MPV (7.4-10.4) fL Immature Gran % (Auto) % Neut % (Auto) % Lymph % (Auto) % [place] % (Auto) % Eos % (Auto) % Baso % (Auto) % Immature Gran # (Auto) (0.00-0.02) K/uL Neut # (Auto) (1.4-6.5) K/uL Lymph # (Auto) (1.2-3.4) K/uL [place] # (Auto) (0.11-0.59) K/uL Eos # (Auto) (0-0.5) K/uL Baso # (Auto) (0-0.2) K/uL ESR (0-14) mm/hr ABG pH 7.42 (7.35-7.45) ABG pCO2 41 (35-46) mmHg ABG pO2 190 H (80-95) mmHg ABG HCO3 26 H (19-24) mmol/L ABG O2 Saturation 99.5 H (90-95) % ABG Base Excess 1.6 (-9-1.8) mEq/L Maykel Test POS (Pos) Barometric Pressure 733.1 mm/Hg Oxygen Given 80% Sodium (136-145) mmol/L Potassium (3.5-5.1) mmol/L Chloride (98-107) mmol/L Carbon Dioxide (21-32) mmol/L Anion Gap (3-11) BUN (7-18) mg/dl Creatinine (0.6-1.4) mg/dl Est Cr Clr Drug Dosing Est GFR ( Amer) Est GFR (Non-Af Amer) BUN/Creatinine Ratio (10-20) Glucose (70-99) mg/dl POC Glucose 123 H (70-99) mg/dl Lactate (0.4-2.0) mmol/L Calcium (8.5-10.1) mg/dl Phosphorus (2.5-4.9) mg/dl Magnesium (1.8-2.4) mg/dl Troponin I (0-0.045) ng/ml C-Reactive Protein (0-0.29) mg/dl Procalcitonin (0-0.5) ng/ml Urine Color Yellow Urine Appearance Cloudy A (Clear) Urine pH 5.0 (4.5-7.5) Ur Specific [place] 1.017 (1.000-1.030) Urine Protein Negative (Negative) Urine Glucose (UA) Negative (Negative) Urine Ketones Negative (Negative) Urine Blood 3+ H (Negative) Urine Nitrite Negative (Negative) Urine Bilirubin Negative (Negative) Urine Urobilinogen Negative (Negative) Ur Leukocyte Esterase 2+ H (Negative) Urine WBC (Auto) >30 H (0-5) /hpf Urine RBC (Auto) >30 H (0-4) /hpf U Hyaline Cast (Auto) 10-30 H (0-5) /lpf U Epithel Cells (Auto) 5-10 H (0-5) /lpf Urine Bacteria (Auto) Negative (Negative) Nasal Screen MRSA (PCR) (Negative) COVID-19 PCR (Negative) 04/09/20 04/09/20 04/09/20 Range/Units 14:20 14:20 14:20 WBC (4.8-10.8) K/uL RBC (4.7-6.1) M/uL Hgb (14.0-18.0) g/dL Hct (42-52) % MCV (80-100) fL MCH (25-34) pg MCHC (32-36) g/dL RDW Std Deviation (36.4-46.3) fL RDW Coeff of Tristan (11.5-14.5) % Plt Count (130-400) K/uL MPV (7.4-10.4) fL Immature Gran % (Auto) % Neut % (Auto) % Lymph % (Auto) % [place] % (Auto) % Eos % (Auto) % Baso % (Auto) % Immature Gran # (Auto) (0.00-0.02) K/uL Neut # (Auto) (1.4-6.5) K/uL Lymph # (Auto) (1.2-3.4) K/uL [place] # (Auto) (0.11-0.59) K/uL Eos # (Auto) (0-0.5) K/uL Baso # (Auto) (0-0.2) K/uL ESR (0-14) mm/hr ABG pH (7.35-7.45) ABG pCO2 (35-46) mmHg ABG pO2 (80-95) mmHg ABG HCO3 (19-24) mmol/L ABG O2 Saturation (90-95) % ABG Base Excess (-9-1.8) mEq/L Maykel Test (Pos) Barometric Pressure mm/Hg Oxygen Given Sodium 141 (136-145) mmol/L Potassium 4.1 (3.5-5.1) mmol/L Chloride 108 H (98-107) mmol/L Carbon Dioxide 25 (21-32) mmol/L Anion Gap 8.0 (3-11) BUN 28 H (7-18) mg/dl Creatinine 1.61 H (0.6-1.4) mg/dl Est Cr Clr Drug Dosing Not Reportable Est GFR ( Amer) 50.9 Est GFR (Non-Af Amer) 43.9 BUN/Creatinine Ratio 17.1 (10-20) Glucose 123 H (70-99) mg/dl POC Glucose (70-99) mg/dl Lactate 0.9 (0.4-2.0) mmol/L Calcium 8.7 (8.5-10.1) mg/dl Phosphorus 3.5 (2.5-4.9) mg/dl Magnesium 2.5 H (1.8-2.4) mg/dl Troponin I 0.038 (0-0.045) ng/ml C-Reactive Protein 0.60 H (0-0.29) mg/dl Procalcitonin 0.13 (0-0.5) ng/ml Urine Color Urine Appearance (Clear) Urine pH (4.5-7.5) Ur Specific [place] (1.000-1.030) Urine Protein (Negative) Urine Glucose (UA) (Negative) Urine Ketones (Negative) Urine Blood (Negative) Urine Nitrite (Negative) Urine Bilirubin (Negative) Urine Urobilinogen (Negative) Ur Leukocyte Esterase (Negative) Urine WBC (Auto) (0-5) /hpf Urine RBC (Auto) (0-4) /hpf U Hyaline Cast (Auto) (0-5) /lpf U Epithel Cells (Auto) (0-5) /lpf Urine Bacteria (Auto) (Negative) Nasal Screen MRSA (PCR) (Negative) COVID-19 PCR (Negative) 04/09/20 04/09/20 04/09/20 Range/Units 14:20 14:20 13:53 WBC 14.10 H (4.8-10.8) K/uL RBC 4.60 L (4.7-6.1) M/uL Hgb 13.9 L (14.0-18.0) g/dL Hct 42.7 (42-52) % MCV 92.8 (80-100) fL MCH 30.2 (25-34) pg MCHC 32.6 (32-36) g/dL RDW Std Deviation 49.6 H (36.4-46.3) fL RDW Coeff of Tristan 14.6 H (11.5-14.5) % Plt Count 298 (130-400) K/uL MPV 10.6 H (7.4-10.4) fL Immature Gran % (Auto) 0.8 % Neut % (Auto) 79.5 % Lymph % (Auto) 9.9 % [place] % (Auto) 9.0 % Eos % (Auto) 0.6 % Baso % (Auto) 0.2 % Immature Gran # (Auto) 0.11 H (0.00-0.02) K/uL Neut # (Auto) 11.22 H (1.4-6.5) K/uL Lymph # (Auto) 1.39 (1.2-3.4) K/uL [place] # (Auto) 1.27 H (0.11-0.59) K/uL Eos # (Auto) 0.08 (0-0.5) K/uL Baso # (Auto) 0.03 (0-0.2) K/uL ESR 31 H (0-14) mm/hr ABG pH (7.35-7.45) ABG pCO2 (35-46) mmHg ABG pO2 (80-95) mmHg ABG HCO3 (19-24) mmol/L ABG O2 Saturation (90-95) % ABG Base Excess (-9-1.8) mEq/L Maykel Test (Pos) Barometric Pressure mm/Hg Oxygen Given Sodium (136-145) mmol/L Potassium (3.5-5.1) mmol/L Chloride (98-107) mmol/L Carbon Dioxide (21-32) mmol/L Anion Gap (3-11) BUN (7-18) mg/dl Creatinine (0.6-1.4) mg/dl Est Cr Clr Drug Dosing Est GFR ( Amer) Est GFR (Non-Af Amer) BUN/Creatinine Ratio (10-20) Glucose (70-99) mg/dl POC Glucose (70-99) mg/dl Lactate (0.4-2.0) mmol/L Calcium (8.5-10.1) mg/dl Phosphorus (2.5-4.9) mg/dl Magnesium (1.8-2.4) mg/dl Troponin I (0-0.045) ng/ml C-Reactive Protein (0-0.29) mg/dl Procalcitonin (0-0.5) ng/ml Urine Color Urine Appearance (Clear) Urine pH (4.5-7.5) Ur Specific [place] (1.000-1.030) Urine Protein (Negative) Urine Glucose (UA) (Negative) Urine Ketones (Negative) Urine Blood (Negative) Urine Nitrite (Negative) Urine Bilirubin (Negative) Urine Urobilinogen (Negative) Ur Leukocyte Esterase (Negative) Urine WBC (Auto) (0-5) /hpf Urine RBC (Auto) (0-4) /hpf U Hyaline Cast (Auto) (0-5) /lpf U Epithel Cells (Auto) (0-5) /lpf Urine Bacteria (Auto) (Negative) Nasal Screen MRSA (PCR) (Negative) COVID-19 PCR NEGATIVE (Negative) 04/09/20 Range/Units 13:52 WBC (4.8-10.8) K/uL RBC (4.7-6.1) M/uL Hgb (14.0-18.0) g/dL Hct (42-52) % MCV (80-100) fL MCH (25-34) pg MCHC (32-36) g/dL RDW Std Deviation (36.4-46.3) fL RDW Coeff of Tristan (11.5-14.5) % Plt Count (130-400) K/uL MPV (7.4-10.4) fL Immature Gran % (Auto) % Neut % (Auto) % Lymph % (Auto) % [place] % (Auto) % Eos % (Auto) % Baso % (Auto) % Immature Gran # (Auto) (0.00-0.02) K/uL Neut # (Auto) (1.4-6.5) K/uL Lymph # (Auto) (1.2-3.4) K/uL [place] # (Auto) (0.11-0.59) K/uL Eos # (Auto) (0-0.5) K/uL Baso # (Auto) (0-0.2) K/uL ESR (0-14) mm/hr ABG pH (7.35-7.45) ABG pCO2 (35-46) mmHg ABG pO2 (80-95) mmHg ABG HCO3 (19-24) mmol/L ABG O2 Saturation (90-95) % ABG Base Excess (-9-1.8) mEq/L Maykel Test (Pos) Barometric Pressure mm/Hg Oxygen Given Sodium (136-145) mmol/L Potassium (3.5-5.1) mmol/L Chloride (98-107) mmol/L Carbon Dioxide (21-32) mmol/L Anion Gap (3-11) BUN (7-18) mg/dl Creatinine (0.6-1.4) mg/dl Est Cr Clr Drug Dosing Est GFR ( Amer) Est GFR (Non-Af Amer) BUN/Creatinine Ratio (10-20) Glucose (70-99) mg/dl POC Glucose (70-99) mg/dl Lactate (0.4-2.0) mmol/L Calcium (8.5-10.1) mg/dl Phosphorus (2.5-4.9) mg/dl Magnesium (1.8-2.4) mg/dl Troponin I (0-0.045) ng/ml C-Reactive Protein (0-0.29) mg/dl Procalcitonin (0-0.5) ng/ml Urine Color Urine Appearance (Clear) Urine pH (4.5-7.5) Ur Specific [place] (1.000-1.030) Urine Protein (Negative) Urine Glucose (UA) (Negative) Urine Ketones (Negative) Urine Blood (Negative) Urine Nitrite (Negative) Urine Bilirubin (Negative) Urine Urobilinogen (Negative) Ur Leukocyte Esterase (Negative) Urine WBC (Auto) (0-5) /hpf Urine RBC (Auto) (0-4) /hpf U Hyaline Cast (Auto) (0-5) /lpf U Epithel Cells (Auto) (0-5) /lpf Urine Bacteria (Auto) (Negative) Nasal Screen MRSA (PCR) Negative (Negative) COVID-19 PCR (Negative) Diagnostic Findings SINGLE VIEW CHEST CLINICAL HISTORY: Intubation. FINDINGS: An AP, portable, upright chest radiograph is compared to study dated 03/24/2020. The examination is degraded by portable technique and patient rotation. A 3-lead cardiac AICD is unchanged in position. An enteric tube has been placed. The tip projects below the diaphragm over the stomach. An endotracheal tube has been placed. The tip projects approximately 5.5 cm above the katelin. The heart is enlarged noting atherosclerotic calcification of the thoracic aorta. There is pulmonary vascular congestion with evidence of interstitial edema. There are layering pleural effusions with bibasilar consolidation. No pneumothorax is seen. The skeletal structures are osteopenic. The bony thorax is grossly intact. IMPRESSION: 1. Endotracheal and enteric tubes have been placed as above. 2. Cardiomegaly and AICD with evidence of congestive failure and interstitial edema. 3. Layering pleural effusions with bibasilar consolidation. Code Status & VTE Plan Code Status Full code VTE Prophylaxis Plan VTE Prophylaxis will be ordered: Yes Supervising Physician Co-Signing Physician Notes PA Supervision Note: I personally saw and examined the patient. I verified all couch points and agree with KWADWO Neil with the following exceptions and/or additions: Patient presents from outside hospital as above with acute respiratory failure with hypoxia and hypercarbia likely secondary to acute on chronic systolic CHF. He was intubated at [facility] and transferred here by helicopter. He has been diuresed and remains on the ventilator without ability to give history when I saw him. History and ROS reviewed Vitals reviewed Gen: Intubated and sedated, NAD HEENT: Anicteric sclerae, pupils equally round and reactive to light, ET tube in place CV: RRR no mgr nl S1S2 Pulm: Diminished breath sounds at the bases with crackles in the middle lung marcelino bilaterally Abd: +BS soft NT ND no masses or hernias Ext: No edema, 1+ DP pulses Skin: No rashes, warm/dry, a few scabbed abrasions on his legs and ankles Neuro: Sedated, not able to follow commands : Alegria catheter in place draining clear yellow urine Laboratory values from outside facility and here reviewed Chest x-ray from here images personally reviewed by me ECG with paced rhythm 64-year-old male with history of ischemic cardiomyopathy, severe CAD, CKD stage III, ANDREW, HTN, DM 2, COPD, ventricular tachycardia, status post AICD/PPM, here with acute respiratory failure with hypoxia and hypercarbia secondary to acute on chronic systolic CHF -Continue diuresis -Continue ventilator support as per director of home economics and extubate as able to -Continue vasopressor support as needed -Holding home p.o. medications -Rest of plan outlined as above PG Care Time/CCT Total # of Minutes Spent Total Time Spent with Patient: Total time spent is greater than 50% in coordination of care (as documented) at patient's floor/unit and/or counseling patient: Coding Level of Care Code 52105 Initial Inpt Care Lvl 3 Diagnoses Respiratory failure J96.90 Acute systolic (congestive) heart failure I50.21 ICD (implantable cardioverter-defibrillator) in place Z95.810 Ischemic cardiomyopathy I25.5 Hypertension I10 Hypertension type: essential hypertension Dyslipidemia E78.5 Coronary artery disease I25.10 Associated angina: without angina Coronary Disease-Associated Artery/Lesion type: [place] artery [place] vs. transplanted heart: [place] heart COPD (chronic obstructive pulmonary disease) J44.9 Asthma J45.909 Obstructive sleep apnea of adult G47.33 Diabetes mellitus, type 2 E11.9 Stage III chronic kidney disease N18.3 Vitamin D deficiency E55.9 History of ventricular tachycardia Z86.79 DVT prophylaxis Z29.9 (1) Coronary artery disease Associated angina: without angina Coronary Disease-Associated Artery/Lesion type: [place] artery [place] vs. transplanted heart: [place] heart Qualified Code(s): I25.10 - Atherosclerotic heart disease of [place] coronary artery without angina pectoris (2) Hypertension Hypertension type: essential hypertension Qualified Code(s): I10 - Essential (primary) hypertension
[2020-04-09] MEDS ORDERED: INSULIN ASPART 100 UNITS/ML 3 ML PEN SC SCH (11:30)
[2020-04-09] MEDS ORDERED: PROPOFOL IV EMULSION 10 MG/ML 100 ML VIAL IV ONE (13:40)
--- NOTE | 2020-04-09 13:53 | Critical Care Consultation ---
Date of Consultation April 09, 2020 Assessment & Plan (1) Acute systolic (congestive) heart failure: Reason Critically Ill: 64-year-old male with acute congestive heart failure leading to acute hypoxemic respiratory failure PLAN: Neuro: Sedation -Intermittent bolus Versed and fentanyl, transition from propofol given negative inotropic effects propofol Resp: Acute hypoxic respiratory failure -Wean ventilator as tolerated -Spontaneous breathing trial in a.m. -No indication for antibiotic coverage at this time CV: Acute on chronic congestive heart failure -Continue vasoactive medication wean as tolerated -Aggressive diuresis -Prior notes indicate dry weight of 200 pounds: Approximately 3 pounds over dry weight Ischemic cardiomyopathy History atrial fibrillation with RVR Hypertension: Essential Coronary artery disease -Prior notes indicate may need follow-up with advanced heart failure therapies at tertiary center this is a second hospitalization this month for heart failure Fluids/Renal: Stage III chronic kidney disease -Aggressive diuresis: Bumex 2 mg twice daily ID: Blood cultures urine cultures pending -Trend fever curve GI/Nutrition: N.p.o. Transaminitis history -LFTs in a.m. Heme: Anemia: Chronic at baseline Leukocytosis -Nonspecific continue to trend DVT prophylaxis: Heparin 5000 units twice daily Endocrine: ICU hyperglycemia protocol Insulin-dependent diabetes mellitus -Sliding scale ordered Vascular access: Peripheral IVs Code Status: Full code Disposition: ICU Patient may benefit from goals of care discussion versus advanced heart failure/mechanical assist device evaluation. We will attempt to further that discussion if and when the patient is intubated and able to participate in medical decision making. (2) Admitted to intensive care unit: (3) Respiratory failure: (4) Stage III chronic kidney disease: (5) Obstructive sleep apnea of adult: (6) Ischemic cardiomyopathy: (7) ICD (implantable cardioverter-defibrillator) in place: (8) Dyslipidemia: History of Present Illness Reason for Consultation: Acute hypoxic respiratory failure Requesting Physician: Izzy MITCHELL Attending Physician: Mayte Magana MD History of Present Illness History is obtained from records secondary to patient being intubated. Patient is a 64-year-old male with a past medical history of ischemic cardiomyopathy EF of 15 to 20% who was recently treated at this institution for acute exacerbation of chronic congestive heart failure. He was reportedly seen in [place]'s ED and was extremely hypoxic and in extremis requiring intubation. At [facility] they were concerned for possible COVID-19 and the patient was considered to be a person under investigation. He was transferred for further evaluation and medical management. This is arrival in the ICU patient has received a rapid COVID test which was negative. Certainly the clinical constellation is also consistent with acute exacerbation of chronic congestive heart failure. At this time the patient is requiring vasoactive medication for blood pressure support and has received diuretics. Allergies Allergy/AdvReac Type Severity Reaction Status Date / Time budesonide Allergy Unknown TACHYCARDIA, Verified 01/23/20 14:54 SOB carbamazepine Allergy Unknown TACHYCARDIA, Verified 01/23/20 14:54 PANIC ATTACK cyclobenzaprine Allergy Unknown UNK Verified 01/23/20 14:54 doxycycline Allergy Unknown ABD PAIN Verified 01/23/20 14:54 fluticasone Allergy Unknown UNK Verified 01/23/20 14:54 formoterol Allergy Unknown TACHYCARDIA, Verified 01/23/20 14:54 SOB salmeterol Allergy Unknown ANAPHYLAXIS Verified 01/23/20 14:54 morphine Allergy Unknown Verified 01/23/20 14:54 tiotropium Allergy Unknown Verified 01/23/20 14:54 [From Spiriva with HandiHaler] digoxin AdvReac Unknown BACK AND Verified 01/23/20 14:54 STOMACH PAIN metformin AdvReac Unknown MUSCLE Verified 01/23/20 14:54 ACHES IN BVACK AND KIDNEYS Sodium Propionate Allergy Unknown SHORTNESS Uncoded 01/23/20 14:54 OF BREATH Home Medications Home Medications Medication Instructions Recorded Confirmed Type amiodarone 200 mg PO DAILY 07/22/19 03/31/20 History aspirin [Ecotrin Low Strength] 81 mg PO DAILY 07/22/19 03/31/20 History nitroglycerin 0.4 mg SUBLINGUAL Q5M PRN 07/22/19 03/31/20 History cholecalciferol (vitamin D3) 25 2,000 units PO DAILY tab 11/05/19 03/31/20 History mcg (1,000 unit) tablet coenzyme Q10 100 mg capsule 200 mg PO DAILY cap 11/05/19 03/31/20 History fluticasone propionate 50 2 sprays INTRANASAL DAILY ml 11/05/19 03/31/20 History mcg/actuation nasal spray,suspension isosorbide mononitrate 30 mg 30 mg PO QAM #90 tab 11/05/19 03/31/20 Rx tablet,extended release 24 hr mexiletine 150 mg capsule 150 mg PO BID #180 cap 11/05/19 03/31/20 Rx nystatin 100,000 unit/gram topical 1 appln TOP BID #15 gm 11/05/19 03/23/20 Rx cream triamcinolone acetonide 0.1 % 1 appln TOP TID 11/05/19 03/23/20 History topical cream Bifidobacterium infantis See Rx Instructions PO DAILY 01/21/20 03/31/20 History psyllium 1 tbs PO TID gm 01/23/20 03/31/20 History tramadol 50 mg tablet 50 mg PO Q6H PRN #30 tab 01/23/20 03/31/20 Rx ammonium lactate 12 % lotion 1 appln TOP DAILY PRN #227 gm 02/25/20 Rx bumetanide 1 mg PO QAM #90 tab 03/25/20 03/31/20 Rx metolazone 2.5 mg PO DAILY PRN #10 tab 03/25/20 03/31/20 Rx potassium chloride 20 meq PO DAILY PRN #10 tab 03/25/20 03/31/20 Rx blood sugar diagnostic #100 ea 04/08/20 Rx carvedilol 12.5 mg tablet 37.5 mg PO BID #540 tab 04/08/20 Rx glimepiride 2 mg tablet 2 mg PO DAILY #90 tab 04/08/20 Rx Patient History Medical History Afib (Chronic) Allergic rhinitis (Acute) Asthma (Acute) Cervical radiculopathy (Acute) Chronic systolic heart failure COPD (chronic obstructive pulmonary disease) Coronary artery disease Degenerative cervical disc Diabetes mellitus, type 2 Dyslipidemia Hepatitis C History of ventricular tachycardia Hypertension Impotence, organic Ischemic cardiomyopathy EF 20% December 2019 Nephrolithiasis Obesity Obstructive sleep apnea of adult Osteoarthritis Peripheral neuropathy Renal mass Respiratory failure (03/23/20) Stage III chronic kidney disease Vitamin D deficiency (Chronic) Surgical History History of coronary artery stent placement ICD (implantable cardioverter-defibrillator) in place (07/2017) [place] biventricular ICD Family History Unknown Cardiac disorder Hypertension Diabetes Father Myocardial infarction Mother Myocardial infarction Denies family history of Ovarian cancer Prostate cancer Breast cancer Colorectal cancer Social History Preferred Language: Setswana Communication Ability: Unable Visual Impairment: No Limitations Hearing Ability: Normal Fusing Machine Tender Required: No Beliefs That Will Affect Care: None marital status: Current Living Situation: Spouse Current Living Situation Comment: with & son current occupational status: retired Other Information That Helps Us Care for You: No Feels Safe at Home: Yes Safety Concerns: Feels Safe At This Time Smoking Status: Unknown if ever smoked caffeine: No Dental Care, Regularly: No Physical Activity Frequency: 5-6 Times per Week Physical Activity Frequency Comment: walking Seatbelt Use: always Sunscreen Use: No Review of Systems Review of Systems: Unobtainable due to endotracheal tube and Unobtainable due to reduced consciousness Physical Exam Physical Exam: General: Sedated. Appears older than stated age Skin: Warm, dry, Head: Atraumatic Ears, nose, mouth and throat: Obscured by endotracheal tube, moist mucous membranes Cardiovascular: Sluggish capillary refill peripheral perfusion Respiratory: no respiratory distress Gastrointestinal: Non distended Musculoskeletal: No deformity Musculoskeletal: No deformity. CAT hose present on bilateral lower extremities Results & Data Results & Data ([facility]) Laboratory Results 04/09/20 04/09/20 04/09/20 Range/Units 15:55 14:20 14:20 WBC (4.8-10.8) K/uL RBC (4.7-6.1) M/uL Hgb (14.0-18.0) g/dL Hct (42-52) % MCV (80-100) fL MCH (25-34) pg MCHC (32-36) g/dL RDW Std Deviation (36.4-46.3) fL RDW Coeff of Tristan (11.5-14.5) % Plt Count (130-400) K/uL MPV (7.4-10.4) fL Immature Gran % (Auto) % Neut % (Auto) % Lymph % (Auto) % [place] % (Auto) % Eos % (Auto) % Baso % (Auto) % Immature Gran # (Auto) (0.00-0.02) K/uL Neut # (Auto) (1.4-6.5) K/uL Lymph # (Auto) (1.2-3.4) K/uL [place] # (Auto) (0.11-0.59) K/uL Eos # (Auto) (0-0.5) K/uL Baso # (Auto) (0-0.2) K/uL ESR (0-14) mm/hr ABG pH 7.42 (7.35-7.45) ABG pCO2 41 (35-46) mmHg ABG pO2 190 H (80-95) mmHg ABG HCO3 26 H (19-24) mmol/L ABG O2 Saturation 99.5 H (90-95) % ABG Base Excess 1.6 (-9-1.8) mEq/L Maykel Test POS (Pos) Barometric Pressure 733.1 mm/Hg Oxygen Given 80% Sodium (136-145) mmol/L Potassium (3.5-5.1) mmol/L Chloride (98-107) mmol/L Carbon Dioxide (21-32) mmol/L Anion Gap (3-11) BUN (7-18) mg/dl Creatinine (0.6-1.4) mg/dl Est Cr Clr Drug Dosing Est GFR ( Amer) Est GFR (Non-Af Amer) BUN/Creatinine Ratio (10-20) Glucose (70-99) mg/dl Lactate 0.9 (0.4-2.0) mmol/L Calcium (8.5-10.1) mg/dl Phosphorus (2.5-4.9) mg/dl Magnesium (1.8-2.4) mg/dl Troponin I (0-0.045) ng/ml C-Reactive Protein (0-0.29) mg/dl Procalcitonin (0-0.5) ng/ml Urine Color Yellow Urine Appearance Cloudy A (Clear) Urine pH 5.0 (4.5-7.5) Ur Specific [place] 1.017 (1.000-1.030) Urine Protein Negative (Negative) Urine Glucose (UA) Negative (Negative) Urine Ketones Negative (Negative) Urine Blood 3+ H (Negative) Urine Nitrite Negative (Negative) Urine Bilirubin Negative (Negative) Urine Urobilinogen Negative (Negative) Ur Leukocyte Esterase 2+ H (Negative) Urine WBC (Auto) >30 H (0-5) /hpf Urine RBC (Auto) >30 H (0-4) /hpf U Hyaline Cast (Auto) 10-30 H (0-5) /lpf U Epithel Cells (Auto) 5-10 H (0-5) /lpf Urine Bacteria (Auto) Negative (Negative) Nasal Screen MRSA (PCR) COVID-19 PCR (Negative) 04/09/20 04/09/20 04/09/20 Range/Units 14:20 14:20 14:20 WBC (4.8-10.8) K/uL RBC (4.7-6.1) M/uL Hgb (14.0-18.0) g/dL Hct (42-52) % MCV (80-100) fL MCH (25-34) pg MCHC (32-36) g/dL RDW Std Deviation (36.4-46.3) fL RDW Coeff of Tristan (11.5-14.5) % Plt Count (130-400) K/uL MPV (7.4-10.4) fL Immature Gran % (Auto) % Neut % (Auto) % Lymph % (Auto) % [place] % (Auto) % Eos % (Auto) % Baso % (Auto) % Immature Gran # (Auto) (0.00-0.02) K/uL Neut # (Auto) (1.4-6.5) K/uL Lymph # (Auto) (1.2-3.4) K/uL [place] # (Auto) (0.11-0.59) K/uL Eos # (Auto) (0-0.5) K/uL Baso # (Auto) (0-0.2) K/uL ESR 31 H (0-14) mm/hr ABG pH (7.35-7.45) ABG pCO2 (35-46) mmHg ABG pO2 (80-95) mmHg ABG HCO3 (19-24) mmol/L ABG O2 Saturation (90-95) % ABG Base Excess (-9-1.8) mEq/L Maykel Test (Pos) Barometric Pressure mm/Hg Oxygen Given Sodium 141 (136-145) mmol/L Potassium 4.1 (3.5-5.1) mmol/L Chloride 108 H (98-107) mmol/L Carbon Dioxide 25 (21-32) mmol/L Anion Gap 8.0 (3-11) BUN 28 H (7-18) mg/dl Creatinine 1.61 H (0.6-1.4) mg/dl Est Cr Clr Drug Dosing Not Reportable Est GFR ( Amer) 50.9 Est GFR (Non-Af Amer) 43.9 BUN/Creatinine Ratio 17.1 (10-20) Glucose 123 H (70-99) mg/dl Lactate (0.4-2.0) mmol/L Calcium 8.7 (8.5-10.1) mg/dl Phosphorus 3.5 (2.5-4.9) mg/dl Magnesium 2.5 H (1.8-2.4) mg/dl Troponin I 0.038 (0-0.045) ng/ml C-Reactive Protein 0.60 H (0-0.29) mg/dl Procalcitonin 0.13 (0-0.5) ng/ml Urine Color Urine Appearance (Clear) Urine pH (4.5-7.5) Ur Specific [place] (1.000-1.030) Urine Protein (Negative) Urine Glucose (UA) (Negative) Urine Ketones (Negative) Urine Blood (Negative) Urine Nitrite (Negative) Urine Bilirubin (Negative) Urine Urobilinogen (Negative) Ur Leukocyte Esterase (Negative) Urine WBC (Auto) (0-5) /hpf Urine RBC (Auto) (0-4) /hpf U Hyaline Cast (Auto) (0-5) /lpf U Epithel Cells (Auto) (0-5) /lpf Urine Bacteria (Auto) (Negative) Nasal Screen MRSA (PCR) COVID-19 PCR (Negative) 04/09/20 04/09/20 04/09/20 Range/Units 14:20 13:53 13:52 WBC 14.10 H (4.8-10.8) K/uL RBC 4.60 L (4.7-6.1) M/uL Hgb 13.9 L (14.0-18.0) g/dL Hct 42.7 (42-52) % MCV 92.8 (80-100) fL MCH 30.2 (25-34) pg MCHC 32.6 (32-36) g/dL RDW Std Deviation 49.6 H (36.4-46.3) fL RDW Coeff of Tristan 14.6 H (11.5-14.5) % Plt Count 298 (130-400) K/uL MPV 10.6 H (7.4-10.4) fL Immature Gran % (Auto) 0.8 % Neut % (Auto) 79.5 % Lymph % (Auto) 9.9 % [place] % (Auto) 9.0 % Eos % (Auto) 0.6 % Baso % (Auto) 0.2 % Immature Gran # (Auto) 0.11 H (0.00-0.02) K/uL Neut # (Auto) 11.22 H (1.4-6.5) K/uL Lymph # (Auto) 1.39 (1.2-3.4) K/uL [place] # (Auto) 1.27 H (0.11-0.59) K/uL Eos # (Auto) 0.08 (0-0.5) K/uL Baso # (Auto) 0.03 (0-0.2) K/uL ESR (0-14) mm/hr ABG pH (7.35-7.45) ABG pCO2 (35-46) mmHg ABG pO2 (80-95) mmHg ABG HCO3 (19-24) mmol/L ABG O2 Saturation (90-95) % ABG Base Excess (-9-1.8) mEq/L Maykel Test (Pos) Barometric Pressure mm/Hg Oxygen Given Sodium (136-145) mmol/L Potassium (3.5-5.1) mmol/L Chloride (98-107) mmol/L Carbon Dioxide (21-32) mmol/L Anion Gap (3-11) BUN (7-18) mg/dl Creatinine (0.6-1.4) mg/dl Est Cr Clr Drug Dosing Est GFR ( Amer) Est GFR (Non-Af Amer) BUN/Creatinine Ratio (10-20) Glucose (70-99) mg/dl Lactate (0.4-2.0) mmol/L Calcium (8.5-10.1) mg/dl Phosphorus (2.5-4.9) mg/dl Magnesium (1.8-2.4) mg/dl Troponin I (0-0.045) ng/ml C-Reactive Protein (0-0.29) mg/dl Procalcitonin (0-0.5) ng/ml Urine Color Urine Appearance (Clear) Urine pH (4.5-7.5) Ur Specific [place] (1.000-1.030) Urine Protein (Negative) Urine Glucose (UA) (Negative) Urine Ketones (Negative) Urine Blood (Negative) Urine Nitrite (Negative) Urine Bilirubin (Negative) Urine Urobilinogen (Negative) Ur Leukocyte Esterase (Negative) Urine WBC (Auto) (0-5) /hpf Urine RBC (Auto) (0-4) /hpf U Hyaline Cast (Auto) (0-5) /lpf U Epithel Cells (Auto) (0-5) /lpf Urine Bacteria (Auto) (Negative) Nasal Screen MRSA (PCR) Pending COVID-19 PCR NEGATIVE (Negative) Coding Level of Care Code Critical Care 1st 30-74 mins Diagnoses Acute systolic (congestive) heart failure I50.21 Admitted to intensive care unit Z78.9 Respiratory failure J96.90 Stage III chronic kidney disease N18.3 Obstructive sleep apnea of adult G47.33 Ischemic cardiomyopathy I25.5 ICD (implantable cardioverter-defibrillator) in place Z95.810 Dyslipidemia E78.5 Time Spent (min) 45 Comment I have personally spent 45 minutes of critical care time in the direct management of this patient. This is a life/limb threatening event. This includes time spent evaluating patient, direct bedside care, chart review, placing orders, interpretation of diagnostic studies, discussion with consulta nts, patient, and/or family members regarding treatment decisions, as well as other required patient management activities. This time is exclusive of all separately billable procedures, and teaching time and separate from and in addition to any other critical care service time.
[2020-04-09 14:39] LABS: Basophils # (auto) 0.03 K/uL (0-0.2); Basophils % (auto) 0.2 %; Eosinophils # (auto) 0.08 K/uL (0-0.5); Eosinophils % (auto) 0.6 %; Hematocrit (blood only) 42.7 % (42-52); Hemoglobin 13.9 g/dL (14.0-18.0); Immature Granulocytes # (auto) 0.11 K/uL (0.00-0.02); Immature Granulocytes % (auto) 0.8 %; Lymphocytes # (auto) 1.39 K/uL (1.2-3.4); Lymphocytes % (auto) 9.9 %; Mean Corpuscular Hemoglobin 30.2 pg (25-34); Mean Corpuscular Volume 92.8 fL (80-100); Mean Platelet Volume 10.6 fL (7.4-10.4); Monocytes # (auto) 1.27 K/uL (0.11-0.59); Neutrophils # (auto) 11.22 K/uL (1.4-6.5); Neutrophils % (auto) 79.5 %; Platelet Count 298 K/uL (130-400); RDW Coefficient of Variation 14.6 % (11.5-14.5); RDW Standard Deviation 49.6 fL (36.4-46.3)
[2020-04-09 14:41] LABS: Mean Corpuscular Hgb Conc 32.6 g/dL (32-36)
[2020-04-09 14:51] LABS: Base Excess ABG 1.6 mEq/L (-9-1.8); HCO3 ABG 26 mmol/L (19-24); Oxygen Saturation ABG 99.5 % (90-95); PCO2 ABG 41 mmHg (35-46); PO2 ABG 190 mmHg (80-95); pH ABG 7.42 (7.35-7.45)
[2020-04-09 14:52] LABS: Allen Test POS (Pos)
[2020-04-09 14:54] LABS: BUN Creatinine Ratio 17.1 (10-20); Blood Urea Nitrogen 28 mg/dl (7-18); Calcium 8.7 mg/dl (8.5-10.1); Carbon Dioxide 25 mmol/L (21-32); Chloride 108 mmol/L (98-107); Est GFR (African American) 50.9; Est GFR (Non-African American) 43.9; Glucose 123 mg/dl (70-99); Magnesium 2.5 mg/dl (1.8-2.4); Potassium 4.1 mmol/L (3.5-5.1); Sodium 141 mmol/L (136-145)
[2020-04-09] MEDS ORDERED: PNEUMOCOCCAL ADMINISTRATION CHARGE ONE (14:56)
[2020-04-09] MEDS ORDERED: PNEUMOCOCCAL POLYSACCHARIDES 25 MCG/0.5 ML VIAL/SYR IM ONE (14:56)
[2020-04-09] MEDS ORDERED: Nursing to Pharmacy Communication ONE (14:58)
[2020-04-09 14:59] LABS: Phosphorus 3.5 mg/dl (2.5-4.9); Troponin I 0.038 ng/ml (0-0.045)
[2020-04-09] MEDS ORDERED: STAT IV Infusion **Titration per Protocol STA ×2 (15:18→16:39)
[2020-04-09] MEDS ORDERED: NOREPINEPHRINE BIT INJ 8 MG in DEXTROSE 5% 500 ML IV SCH (15:30)
[2020-04-09] MEDS: HEPARIN SOD 5,000 UNIT/0.5 ML VIAL SQ SCH ×2 (15:45→21:58)
[2020-04-09 16:06] LABS: Appearance Urine Cloudy (Clear); Bacteria Urine Automated Negative (Negative); Bilirubin Urine Negative (Negative); Blood Urine 3+ (Negative); Color Urine Yellow; Glucose Urine UA Negative (Negative); Ketones Urine Negative (Negative); Leukocyte Esterase Urine 2+ (Negative); Nitrite Urine Negative (Negative); Protein Urine Negative (Negative); RBC Urine Automated >30 /hpf (0-4); Specific Gravity Urine 1.017 (1.000-1.030); Urobilinogen Urine Negative (Negative); WBC Urine Automated >30 /hpf (0-5)
[2020-04-09] MEDS ORDERED: PROPOFOL BOLUS FROM BAG IV PRN (16:39)
[2020-04-09] MEDS: MIDAZOLAM HCL 1 MG/ML 2ML VIAL IV PRN ×3 (17:14→22:46)
[2020-04-09] MEDS: BUMETANIDE 2 MG in SYRINGE 0 ML IV SCH (17:14)
[2020-04-09] MEDS: INSULIN ASPART 100 UNITS/ML 3 ML PEN SC SCH (17:34)
[2020-04-09] MEDS: PANTOprazole 40 MG in SYRINGE 0 ML IV SCH (18:34)
--- NOTE | 2020-04-09 19:06 | XRay Report ---
SINGLE VIEW CHEST CLINICAL HISTORY: Intubation. FINDINGS: An AP, portable, upright chest radiograph is compared to study dated 03/24/2020. The examinat ion is degraded by portable technique and patient rotation. A 3-lead cardiac AICD is unchanged in pos ition. An enteric tube has been placed. The tip projects below the diaphragm over the stomach. An end otracheal tube has been placed. The tip projects approximately 5.5 cm above the katelin. The heart is enlarged noting atherosclerotic calcification of the thoracic aorta. There is pulmonary vascular luly estion with evidence of interstitial edema. There are layering pleural effusions with bibasilar conso lidation. No pneumothorax is seen. The skeletal structures are osteopenic. The bony thorax is grossly intact. IMPRESSION: 1. Endotracheal and enteric tubes have been placed as above. 2. Cardiomegaly and AICD with evidence of congestive failure and interstitial edema. 3. Layering pleural effusions with bibasilar consolidation. ACT 112: Negative or not required by law. Electronically signed by: Truong Palomino M.D. 04/09/2020 7:05 PM
[2020-04-09] MEDS: propofoL 1,000 MG/100 ML VIAL IV SCH (19:24)
[2020-04-09] MEDS: fentaNYL citrate 100 MCG/2 ML VIAL IV PRN (21:00)
[2020-04-09] MEDS ORDERED: ASPIRIN 81 MG CHEW PO STA (23:12)
[2020-04-09] MEDS ORDERED: HEPARIN IV BOLUS 6,000 UNITS in SYRINGE 0 ML IV ONE (23:30)
[2020-04-09] MEDS: HEPARIN SODIUM/DEXTROSE 25,000 UNITS/500 ML BAG IV SCH (23:42)
[2020-04-09 23:44] LABS: Basophils # (auto) 0.03 K/uL (0-0.2); Basophils % (auto) 0.3 %; Eosinophils # (auto) 0.11 K/uL (0-0.5); Hematocrit (blood only) 41.4 % (42-52); Hemoglobin 13.3 g/dL (14.0-18.0); Immature Granulocytes # (auto) 0.09 K/uL (0.00-0.02); Immature Granulocytes % (auto) 0.8 %; Lymphocytes # (auto) 1.59 K/uL (1.2-3.4); Lymphocytes % (auto) 13.9 %; Mean Corpuscular Hemoglobin 29.4 pg (25-34); Mean Corpuscular Volume 91.6 fL (80-100); Mean Platelet Volume 10.3 fL (7.4-10.4); Monocytes % (auto) 8.8 %; Neutrophils % (auto) 75.2 %; Platelet Count 238 K/uL (130-400); RDW Coefficient of Variation 14.7 % (11.5-14.5); Red Blood Count 4.52 M/uL (4.7-6.1); White Blood Count 11.42 K/uL (4.8-10.8)
[2020-04-09 23:55] LABS: INR 1.2 (0.9-1.1); Partial Thromboplastin Time 27.8 Seconds (21.0-31.0); Prothrombin Time 12.4 Seconds (9.0-12.0)
[2020-04-09 23:57] LABS: Mean Corpuscular Hgb Conc 32.1 g/dL (32-36)
--- NOTE | 2020-04-10 00:05 | Communication Note ---
Date of Service: April 09, 2020 At approximately 2240, I was and informed by the bedside nurse that the patient's was experiencing chest pain 5/10 with radiation to the left arm. Granted the patient is intubated and having sedation administered, which certainly complicates his assessment. Stat troponin was sent which was negative, and EKG was performed and did show ST segment changes in anterior leads which were different from previous EKG studies. However the patient is AV paced and due to the complexity of this case and considering the patient's extensive cardiac history with ischemic cardiomyopathy and EF 20%, I did opt to page interventional cardiology to review the EKGs. Also stat troponin was collected which was negative. During our conversation, I was informed that the patient stated that his chest pain has now subsided. In conclusion to the conversation with Dr. Calvillo, is likely that EKG changes could be related to stress of intubation with CHF exacerbation, however cannot completely exclude ACS. Will start's medical management with aspirin administration and IV heparin with bolus for now. Will recheck troponin to make sure it is not up trending in 2 hours and monitor closely for hemodynamic change, which would likely warrant need for intervention with cardiac cath. Will hold on sedation for the time being to reassess for more accurate exam as well. I have personally spent 30 minutes of critical care time in the direct management of this patient. This is a life/limb threatening event. This includes time spent evaluating patient, direct bedside care, chart review, placing orders, interpretation of diagnostic studies, discussion with consultants, patient, and family members, as well as other required patient management activities. This time is exclusive of all separately billable procedures, and teaching time and separate from and in addition to any other critical care service time. Thank you for allowing us to participate in the care of this patient. Please refer to my attending physician's documentation for any further recommendations. Coding Level of Care Code Critical Care ea addt'l 30 min
[2020-04-10] MEDS: fentaNYL citrate 100 MCG/2 ML VIAL IV PRN (00:44)
[2020-04-10 02:39] LABS: Hematocrit (blood only) 40.7 % (42-52); Hemoglobin 13.2 g/dL (14.0-18.0); Mean Corpuscular Hemoglobin 29.8 pg (25-34); Mean Corpuscular Hgb Conc 32.4 g/dL (32-36); Mean Corpuscular Volume 91.9 fL (80-100); Mean Platelet Volume 10.3 fL (7.4-10.4); Platelet Count 222 K/uL (130-400); RDW Coefficient of Variation 14.6 % (11.5-14.5); RDW Standard Deviation 49.3 fL (36.4-46.3); Red Blood Count 4.43 M/uL (4.7-6.1); White Blood Count 11.08 K/uL (4.8-10.8)
[2020-04-10 03:02] LABS: BUN Creatinine Ratio 16.9 (10-20); Calcium 8.5 mg/dl (8.5-10.1); Creatinine Clr Calc Pharmacy 54.6 ml/min; Est GFR (African American) 56.8; Potassium 3.6 mmol/L (3.5-5.1)
[2020-04-10 03:04] LABS: Albumin Globulin Ratio 0.9 (0.9-2); Bilirubin,Total 0.7 mg/dl (0.2-1); Globulin 3.4 gm/dl (2.5-4.0); Phosphorus 3.1 mg/dl (2.5-4.9); Total Protein 6.4 gm/dl (6.4-8.2)
[2020-04-10] MEDS ORDERED: POTASSIUM CHLORIDE 20 MEQ/15 ML UDC PO STA (03:29)
[2020-04-10] MEDS: propofoL 1,000 MG/100 ML VIAL IV SCH ×2 (05:33→10:44)
[2020-04-10] MEDS: INSULIN ASPART 100 UNITS/ML 3 ML PEN SC SCH ×5 (05:33→22:04)
[2020-04-10 06:13] LABS: Partial Thromboplastin Ratio 2.9
[2020-04-10 06:15] LABS: Partial Thromboplastin Time 81.9 Seconds (21.0-31.0)
[2020-04-10 06:19] LABS: iSTAT Arterial Blood Gas HCO3 24 meg/L (19-24); iSTAT Arterial Blood Gas pCO2 35 mmHg (35-46); iSTAT Arterial Blood Gas pH 7.44 (7.35-7.45); iSTAT Arterial Blood Gas pO2 85 mmHg (80-95); iSTAT Carbon Dioxide 25 mmol/L (24-31); iSTAT FiO2 35 %; iSTAT Site R Radial
--- NOTE | 2020-04-10 08:35 | Hospitalist Progress Note ---
Date of Service April 10, 2020 Assessment & Plan (1) Respiratory failure: Acute respiratory failure with hypoxia and hypercarbia secondary to acute on chronic systolic CHF-intubated [facility] and now improved Extubated on AM of 04/10 to NC 4L CXR consistent with severe pulm edema--> repeat today is improved after diuresis Procal and lactate were negative Sputum culture pending but does not seem to be infectious COVID 19 rapid test negative - remains in ICU-appreciate vent management by Swing Type Lathe Operator-now extubated -Follow chest x-ray -continue Bumex 2 mg IV twice daily - Daily weights, strict I/Os, alegria cath -continue supplemental O2 and CPAP qhs as per home settings -adv diet as tolerated given recent extubation (2) Acute systolic (congestive) heart failure: With acute on chronic systolic CHF-severe - Has had multiple hospitalization for CHF including ventilator dependent respiratory failure -His weight was not up significantly from previous although he is having cardiac cachexia likely as per Cardio and has lost muscle mass - unclear why he is having flash pulmonary edema that is recurrent -now off Levophed for blood pressure support - Cardiology consult appreciated-not a candidate for any surgery for his severe CAD, has end-stage CAD with cardiac cachexia - Respiratory failure likely due to acute decompensation of CHF - Last echo Dec 2019 with EF of 15-20% -Continue Bumex 2 mg IV every 12 hours and follow electrolytes -restart amiodarone and mexiletine, isosorbide and carvedilol, asa once passes swallow evaluation status post extubation - Monitor renal function to determine if initiation of CLIFTON or ARB suitable -- was not during most recent admission and patient has declined this in the past. -Daily weights, strict I's and O's -will consider palliative care consultation for end-stage CHF if remains here on Sunday (3) NSTEMI (non-ST elevated myocardial infarction): Patient started complaining of right shoulder pain while he was on the ventilator on the night of 04/09 ECG obtained which showed AV paced rhythm with possible ST elevation in the precordial anterior leads, serial troponin did trend upward to 1.95 this morning Cardiology reports previous anginal equivalent was with right shoulder pain similar to this, however patient denies this He has a history of severe three-vessel coronary artery disease and was not a surgical candidate No current right shoulder pain -Was started on heparin drip overnight and will continue this for 48 hours -No intervention indicated as per cardiology-noted that he has a history of hemoptysis on anticoagulation Nitropaste was recommended by cardiology, but patient declines this as it gives him a headache -Restart home isosorbide, carvedilol, aspirin -Trend troponin until peaks (4) ICD (implantable cardioverter-defibrillator) in place: - Noted (5) Ischemic cardiomyopathy: -As noted above (6) Hypertension: - [facility] on BB and isosorbide, but was requiring vasopressor support upon admission and these were held -Now off Levophed -Restart home carvedilol, isosorbide -Continues on IV Bumex (7) Dyslipidemia: - Not on statin therapy, ?intolerance (8) Coronary artery disease: - Hx of inoperable CAD -Restart home Asa, carvedilol, isosorbide - Not on statin therapy, ? intolerance (9) COPD (chronic obstructive pulmonary disease): - Not on inhalers as outpt - Consider formal PFTs as outpt (10) Asthma: - Noted (11) Obstructive sleep apnea of adult: -Start Cpap HS and with naps now that he is extubated (12) Diabetes mellitus, type 2: - ISS with accuchecks ACHS - Last A1C = 7.3 on 01/17/20 - Hold glimeperide, and continue with insulin protocol as per ICU (13) Stage III chronic kidney disease: - Baseline Cr 1.6-1.8. -With acute kidney injury here with creatinine of 2.0 at outside hospital-is now improving here down to 1.47 which is his baseline after receiving IV Lasix - Hx of renal mass thought to be malignancy but pt is not a surgical candidate due to medical comorbidities - Renally dose medications, avoid nephrotoxins - Trend BMP with am labs (14) Vitamin D deficiency: -Holding home supplementation (15) History of ventricular tachycardia: With a history of ventricular tachycardia storm Having frequent PVCs here -Restart home mexiletine and amiodarone-restart when able to -Follow on telemetry (16) DVT prophylaxis: - teds, heparin drip GI prophylaxis-PPI CODE: Full code Dispo: Continued stay in the ICU, but will likely be stable for downgrade to PCU tomorrow If still here on Sunday, consider palliative care consultation to discuss goals of care given multiple hospital admissions for end-stage CHF Admission and Anticipated Discharge Date Admission Date: April 09, 2020 Subjective Pt was just extubated prior to my seeing him. He had c/o right shoulder pain through the night which as per Cardio has been his naginal equivalent in the past although pt denies this is a problem with his heart. He says every time he has been intubated, he feels pain in his right shoulder that goes away when not intubated. Interestingly, when he has been intubated, his troponin usually rises. Trop up to 1.95 here this AM. Had some ECG changes with the pain last night that then resolved. Has diuresed and now on 4LNC with POx 97%. He denies chest pain but has throat pain from tube. No further rt shoulder pain. He does not know why he had flash pulm edema again-reports he has been even more careful lately with sodium and fluid intake than ever before. Denies nausea or abd pain. Is off vasopressors. I discussed the case with Swing Type Lathe Operator Review of Systems Review of Systems: All systems reviewed & are unremarkable except as noted in HPI & below Physical Exam Constitutional: WD/WN, vitals as above Eyes: + anicteric sclerae; no conjunctival abnormality ENMT: Ears: no hearing impairment Mouth: + oropharynx abnormality (slight white exudate on tongue) Neck: trachea midline, no thyromegaly Respiratory: normal respiratory effort; no labored breathing Auscultation: + wheezes (a few scattered wheezes, no rhonchi, +crackles at bases) Cardiovascular: RRR, no murmur, no edema Chest (Breasts): Chest: + pacemaker (left anterior chest wall) Gastrointestinal (Abdomen): normal bowel sounds, soft, nontender, no hepatosplenomegaly Musculoskeletal: Extremities: extremities normal to inspection; no cyanosis and no clubbing Skin: no rashes, warm and dry Neurologic: moves all extremities and awake; no focal motor deficits Psychiatric: A+Ox3, euthymic affect Genitourinary: Alegria catheter in place with clear yellow urine Lymphatic: no lymphedema Results & Data Results & Data ([facility]) Vital Signs (Past 12 Hours) Vital Signs Pulse Resp BP Pulse Ox 04/10/20 07:24 71 9 L 98 04/10/20 06:18 71 124/83 98 05/23/20 06:05 78 11 L 98 05/20 06:00 75 99 05//20 05:48 77 126/79 100 05//20 05:30 74 98 05//20 05:25 69 23 100 05//20 05:18 63 121/82 99 05//20 05:00 62 99 05//20 04:48 64 122/78 99 05/20 04:30 64 99 0520 04:20 69 98 05/20 04:19 67 123/81 97 0520 04:00 65 97 05//20 03:48 66 121/74 98 05//20 03:30 63 96 05//20 03:18 65 126/69 96 0520 03:00 66 97 05/20 02:49 68 120/74 96 05//20 02:30 67 98 05//20 02:19 65 118/72 95 0520 02:00 66 95 0520 01:49 67 103/65 97 05/20 01:30 65 97 05/20 01:24 68 22 97 05//20 01:19 63 100/73 98 05/20 01:00 68 91 05/20 00:48 67 115/76 92 05//20 00:30 67 92 05/20 00:18 67 108/68 93 05/23/20 00:00 68 93 05/22/20 23:34 66 91/65 L 92 0522/20 23:30 69 91 0522/20 23:20 65 85/64 L 92 0522/20 23:05 66 108/68 93 05/22/20 23:00 66 93 05/22/20 22:50 70 133/82 95 05/22/20 22:47 68 136/86 94 05/22/20 22:38 71 143/91 H 97 05/22/20 22:34 72 158/99 H 96 05/22/20 22:30 71 97 05/22/20 22:29 72 133/91 97 05/22/20 22:23 70 138/77 97 05/22/20 22:10 64 22 96 05/22/20 22:00 68 94 05/22/20 21:59 64 113/65 95 04/09/20 21:30 68 94 04/09/20 21:29 65 94/58 L 94 04/09/20 21:05 61 103/73 94 04/09/20 21:00 66 Laboratory Results 04/10/20 04/10/20 04/10/20 Range/Units 06:38 06:06 05:44 WBC (4.8-10.8) K/uL RBC (4.7-6.1) M/uL Hgb (14.0-18.0) g/dL Hct (42-52) % MCV (80-100) fL MCH (25-34) pg MCHC (32-36) g/dL RDW Std Deviation (36.4-46.3) fL RDW Coeff of Tristan (11.5-14.5) % Plt Count (130-400) K/uL MPV (7.4-10.4) fL Immature Gran % (Auto) % Neut % (Auto) % Lymph % (Auto) % [place] % (Auto) % Eos % (Auto) % Baso % (Auto) % Immature Gran # (Auto) (0.00-0.02) K/uL Neut # (Auto) (1.4-6.5) K/uL Lymph # (Auto) (1.2-3.4) K/uL [place] # (Auto) (0.11-0.59) K/uL Eos # (Auto) (0-0.5) K/uL Baso # (Auto) (0-0.2) K/uL ESR (0-14) mm/hr PT (9.0-12.0) Seconds INR (0.9-1.1) APTT 81.9 H* (21.0-31.0) Seconds PTT Ratio 2.9 Sample Site R Radial POC pH 7.44 (7.35-7.45) POC pCO2 35 (35-46) mmHg POC pO2 85 (80-95) mmHg POC HCO3 24 (19-24) hermann/L POC Total CO2 25 (24-31) mmol/L POC Base Excess 0.0 (-9-1.8) hermann/L ABG pH (7.35-7.45) ABG pCO2 (35-46) mmHg ABG pO2 (80-95) mmHg ABG HCO3 (19-24) mmol/L POC ABG O2 Sat 97.0 H (90-95) % ABG O2 Saturation (90-95) % ABG Base Excess (-9-1.8) mEq/L Maykel Test NA (Pos) Barometric Pressure mm/Hg Oxygen Given O2 Delivery Device Ventilator POC FiO2 35 % PEEP 5 Sodium (136-145) mmol/L Potassium (3.5-5.1) mmol/L Chloride (98-107) mmol/L Carbon Dioxide (21-32) mmol/L Anion Gap (3-11) BUN (7-18) mg/dl Creatinine (0.6-1.4) mg/dl Est Cr Clr Drug Dosing Est GFR ( Amer) Est GFR (Non-Af Amer) BUN/Creatinine Ratio (10-20) Glucose (70-99) mg/dl POC Glucose (70-99) mg/dl Lactate (0.4-2.0) mmol/L Calcium (8.5-10.1) mg/dl Phosphorus (2.5-4.9) mg/dl Magnesium (1.8-2.4) mg/dl Total Bilirubin (0.2-1) mg/dl AST (15-37) U/L ALT (12-78) U/L Alkaline Phosphatase (45-117) U/L Troponin I 1.950 H* (0-0.045) ng/ml C-Reactive Protein (0-0.29) mg/dl Total Protein (6.4-8.2) gm/dl Albumin (3.4-5.0) gm/dl Globulin (2.5-4.0) gm/dl Albumin/Globulin Ratio (0.9-2) Procalcitonin (0-0.5) ng/ml Urine Color Urine Appearance (Clear) Urine pH (4.5-7.5) Ur Specific [place] (1.000-1.030) Urine Protein (Negative) Urine Glucose (UA) (Negative) Urine Ketones (Negative) Urine Blood (Negative) Urine Nitrite (Negative) Urine Bilirubin (Negative) Urine Urobilinogen (Negative) Ur Leukocyte Esterase (Negative) Urine WBC (Auto) (0-5) /hpf Urine RBC (Auto) (0-4) /hpf U Hyaline Cast (Auto) (0-5) /lpf U Epithel Cells (Auto) (0-5) /lpf Urine Bacteria (Auto) (Negative) Nasal Screen MRSA (PCR) (Negative) COVID-19 PCR (Negative) 04/10/20 04/10/20 04/10/20 Range/Units 05:32 02:31 02:31 WBC 11.08 H (4.8-10.8) K/uL RBC 4.43 L (4.7-6.1) M/uL Hgb 13.2 L (14.0-18.0) g/dL Hct 40.7 L (42-52) % MCV 91.9 (80-100) fL MCH 29.8 (25-34) pg MCHC 32.4 (32-36) g/dL RDW Std Deviation 49.3 H (36.4-46.3) fL RDW Coeff of Tristan 14.6 H (11.5-14.5) % Plt Count 222 (130-400) K/uL MPV 10.3 (7.4-10.4) fL Immature Gran % (Auto) % Neut % (Auto) % Lymph % (Auto) % [place] % (Auto) % Eos % (Auto) % Baso % (Auto) % Immature Gran # (Auto) (0.00-0.02) K/uL Neut # (Auto) (1.4-6.5) K/uL Lymph # (Auto) (1.2-3.4) K/uL [place] # (Auto) (0.11-0.59) K/uL Eos # (Auto) (0-0.5) K/uL Baso # (Auto) (0-0.2) K/uL ESR (0-14) mm/hr PT (9.0-12.0) Seconds INR (0.9-1.1) APTT (21.0-31.0) Seconds PTT Ratio Sample Site POC pH (7.35-7.45) POC pCO2 (35-46) mmHg POC pO2 (80-95) mmHg POC HCO3 (19-24) hermann/L POC Total CO2 (24-31) mmol/L POC Base Excess (-9-1.8) hermann/L ABG pH (7.35-7.45) ABG pCO2 (35-46) mmHg ABG pO2 (80-95) mmHg ABG HCO3 (19-24) mmol/L POC ABG O2 Sat (90-95) % ABG O2 Saturation (90-95) % ABG Base Excess (-9-1.8) mEq/L Maykel Test (Pos) Barometric Pressure mm/Hg Oxygen Given O2 Delivery Device POC FiO2 % PEEP Sodium 143 (136-145) mmol/L Potassium 3.6 (3.5-5.1) mmol/L Chloride 108 H (98-107) mmol/L Carbon Dioxide 25 (21-32) mmol/L Anion Gap 10.0 (3-11) BUN 25 H (7-18) mg/dl Creatinine 1.47 H (0.6-1.4) mg/dl Est Cr Clr Drug Dosing 54.6 Est GFR ( Amer) 56.8 Est GFR (Non-Af Amer) 49.0 BUN/Creatinine Ratio 16.9 (10-20) Glucose 154 H (70-99) mg/dl POC Glucose 159 H (70-99) mg/dl Lactate (0.4-2.0) mmol/L Calcium 8.5 (8.5-10.1) mg/dl Phosphorus 3.1 (2.5-4.9) mg/dl Magnesium 2.0 (1.8-2.4) mg/dl Total Bilirubin 0.7 (0.2-1) mg/dl AST 34 (15-37) U/L ALT 43 (12-78) U/L Alkaline Phosphatase 47 (45-117) U/L Troponin I (0-0.045) ng/ml C-Reactive Protein (0-0.29) mg/dl Total Protein 6.4 (6.4-8.2) gm/dl Albumin 3.0 L (3.4-5.0) gm/dl Globulin 3.4 (2.5-4.0) gm/dl Albumin/Globulin Ratio 0.9 (0.9-2) Procalcitonin (0-0.5) ng/ml Urine Color Urine Appearance (Clear) Urine pH (4.5-7.5) Ur Specific [place] (1.000-1.030) Urine Protein (Negative) Urine Glucose (UA) (Negative) Urine Ketones (Negative) Urine Blood (Negative) Urine Nitrite (Negative) Urine Bilirubin (Negative) Urine Urobilinogen (Negative) Ur Leukocyte Esterase (Negative) Urine WBC (Auto) (0-5) /hpf Urine RBC (Auto) (0-4) /hpf U Hyaline Cast (Auto) (0-5) /lpf U Epithel Cells (Auto) (0-5) /lpf Urine Bacteria (Auto) (Negative) Nasal Screen MRSA (PCR) (Negative) COVID-19 PCR (Negative) 04/10/20 04/09/20 04/09/20 Range/Units 01:29 23:59 23:37 WBC 11.42 H (4.8-10.8) K/uL RBC 4.52 L (4.7-6.1) M/uL Hgb 13.3 L (14.0-18.0) g/dL Hct 41.4 L (42-52) % MCV 91.6 (80-100) fL MCH 29.4 (25-34) pg MCHC 32.1 (32-36) g/dL RDW Std Deviation 50.0 H (36.4-46.3) fL RDW Coeff of Tristan 14.7 H (11.5-14.5) % Plt Count 238 (130-400) K/uL MPV 10.3 (7.4-10.4) fL Immature Gran % (Auto) 0.8 % Neut % (Auto) 75.2 % Lymph % (Auto) 13.9 % [place] % (Auto) 8.8 % Eos % (Auto) 1.0 % Baso % (Auto) 0.3 % Immature Gran # (Auto) 0.09 H (0.00-0.02) K/uL Neut # (Auto) 8.60 H (1.4-6.5) K/uL Lymph # (Auto) 1.59 (1.2-3.4) K/uL Marin # (Auto) 1.00 H (0.11-0.59) K/uL Eos # (Auto) 0.11 (0-0.5) K/uL Baso # (Auto) 0.03 (0-0.2) K/uL ESR (0-14) mm/hr PT (9.0-12.0) Seconds INR (0.9-1.1) APTT (21.0-31.0) Seconds PTT Ratio Sample Site POC pH (7.35-7.45) POC pCO2 (35-46) mmHg POC pO2 (80-95) mmHg POC HCO3 (19-24) hermann/L POC Total CO2 (24-31) mmol/L POC Base Excess (-9-1.8) hermann/L ABG pH (7.35-7.45) ABG pCO2 (35-46) mmHg ABG pO2 (80-95) mmHg ABG HCO3 (19-24) mmol/L POC ABG O2 Sat (90-95) % ABG O2 Saturation (90-95) % ABG Base Excess (-9-1.8) mEq/L Maykel Test (Pos) Barometric Pressure mm/Hg Oxygen Given O2 Delivery Device POC FiO2 % PEEP Sodium (136-145) mmol/L Potassium (3.5-5.1) mmol/L Chloride (98-107) mmol/L Carbon Dioxide (21-32) mmol/L Anion Gap (3-11) BUN (7-18) mg/dl Creatinine (0.6-1.4) mg/dl Est Cr Clr Drug Dosing Est GFR ( Amer) Est GFR (Non-Af Amer) BUN/Creatinine Ratio (10-20) Glucose (70-99) mg/dl POC Glucose 140 H (70-99) mg/dl Lactate (0.4-2.0) mmol/L Calcium (8.5-10.1) mg/dl Phosphorus (2.5-4.9) mg/dl Magnesium (1.8-2.4) mg/dl Total Bilirubin (0.2-1) mg/dl AST (15-37) U/L ALT (12-78) U/L Alkaline Phosphatase (45-117) U/L Troponin I 0.151 H* (0-0.045) ng/ml C-Reactive Protein (0-0.29) mg/dl Total Protein (6.4-8.2) gm/dl Albumin (3.4-5.0) gm/dl Globulin (2.5-4.0) gm/dl Albumin/Globulin Ratio (0.9-2) Procalcitonin (0-0.5) ng/ml Urine Color Urine Appearance (Clear) Urine pH (4.5-7.5) Ur Specific [place] (1.000-1.030) Urine Protein (Negative) Urine Glucose (UA) (Negative) Urine Ketones (Negative) Urine Blood (Negative) Urine Nitrite (Negative) Urine Bilirubin (Negative) Urine Urobilinogen (Negative) Ur Leukocyte Esterase (Negative) Urine WBC (Auto) (0-5) /hpf Urine RBC (Auto) (0-4) /hpf U Hyaline Cast (Auto) (0-5) /lpf U Epithel Cells (Auto) (0-5) /lpf Urine Bacteria (Auto) (Negative) Nasal Screen MRSA (PCR) (Negative) COVID-19 PCR (Negative) 04/09/20 04/09/20 04/09/20 Range/Units 23:37 22:48 17:33 WBC (4.8-10.8) K/uL RBC (4.7-6.1) M/uL Hgb (14.0-18.0) g/dL Hct (42-52) % MCV (80-100) fL MCH (25-34) pg MCHC (32-36) g/dL RDW Std Deviation (36.4-46.3) fL RDW Coeff of Tristan (11.5-14.5) % Plt Count (130-400) K/uL MPV (7.4-10.4) fL Immature Gran % (Auto) % Neut % (Auto) % Lymph % (Auto) % [place] % (Auto) % Eos % (Auto) % Baso % (Auto) % Immature Gran # (Auto) (0.00-0.02) K/uL Neut # (Auto) (1.4-6.5) K/uL Lymph # (Auto) (1.2-3.4) K/uL [place] # (Auto) (0.11-0.59) K/uL Eos # (Auto) (0-0.5) K/uL Baso # (Auto) (0-0.2) K/uL ESR (0-14) mm/hr PT 12.4 H (9.0-12.0) Seconds INR 1.2 H (0.9-1.1) APTT 27.8 (21.0-31.0) Seconds PTT Ratio 1.0 Sample Site POC pH (7.35-7.45) POC pCO2 (35-46) mmHg POC pO2 (80-95) mmHg POC HCO3 (19-24) hermann/L POC Total CO2 (24-31) mmol/L POC Base Excess (-9-1.8) hermann/L ABG pH (7.35-7.45) ABG pCO2 (35-46) mmHg ABG pO2 (80-95) mmHg ABG HCO3 (19-24) mmol/L POC ABG O2 Sat (90-95) % ABG O2 Saturation (90-95) % ABG Base Excess (-9-1.8) mEq/L Maykel Test (Pos) Barometric Pressure mm/Hg Oxygen Given O2 Delivery Device POC FiO2 % PEEP Sodium (136-145) mmol/L Potassium (3.5-5.1) mmol/L Chloride (98-107) mmol/L Carbon Dioxide (21-32) mmol/L Anion Gap (3-11) BUN (7-18) mg/dl Creatinine (0.6-1.4) mg/dl Est Cr Clr Drug Dosing Est GFR ( Amer) Est GFR (Non-Af Amer) BUN/Creatinine Ratio (10-20) Glucose (70-99) mg/dl POC Glucose 123 H (70-99) mg/dl Lactate (0.4-2.0) mmol/L Calcium (8.5-10.1) mg/dl Phosphorus (2.5-4.9) mg/dl Magnesium (1.8-2.4) mg/dl Total Bilirubin (0.2-1) mg/dl AST (15-37) U/L ALT (12-78) U/L Alkaline Phosphatase (45-117) U/L Troponin I 0.033 (0-0.045) ng/ml C-Reactive Protein (0-0.29) mg/dl Total Protein (6.4-8.2) gm/dl Albumin (3.4-5.0) gm/dl Globulin (2.5-4.0) gm/dl Albumin/Globulin Ratio (0.9-2) Procalcitonin (0-0.5) ng/ml Urine Color Urine Appearance (Clear) Urine pH (4.5-7.5) Ur Specific [place] (1.000-1.030) Urine Protein (Negative) Urine Glucose (UA) (Negative) Urine Ketones (Negative) Urine Blood (Negative) Urine Nitrite (Negative) Urine Bilirubin (Negative) Urine Urobilinogen (Negative) Ur Leukocyte Esterase (Negative) Urine WBC (Auto) (0-5) /hpf Urine RBC (Auto) (0-4) /hpf U Hyaline Cast (Auto) (0-5) /lpf U Epithel Cells (Auto) (0-5) /lpf Urine Bacteria (Auto) (Negative) Nasal Screen MRSA (PCR) (Negative) COVID-19 PCR (Negative) 04/09/20 04/09/20 04/09/20 Range/Units 15:55 14:20 14:20 WBC (4.8-10.8) K/uL RBC (4.7-6.1) M/uL Hgb (14.0-18.0) g/dL Hct (42-52) % MCV (80-100) fL MCH (25-34) pg MCHC (32-36) g/dL RDW Std Deviation (36.4-46.3) fL RDW Coeff of Tristan (11.5-14.5) % Plt Count (130-400) K/uL MPV (7.4-10.4) fL Immature Gran % (Auto) % Neut % (Auto) % Lymph % (Auto) % [place] % (Auto) % Eos % (Auto) % Baso % (Auto) % Immature Gran # (Auto) (0.00-0.02) K/uL Neut # (Auto) (1.4-6.5) K/uL Lymph # (Auto) (1.2-3.4) K/uL [place] # (Auto) (0.11-0.59) K/uL Eos # (Auto) (0-0.5) K/uL Baso # (Auto) (0-0.2) K/uL ESR (0-14) mm/hr PT (9.0-12.0) Seconds INR (0.9-1.1) APTT (21.0-31.0) Seconds PTT Ratio Sample Site POC pH (7.35-7.45) POC pCO2 (35-46) mmHg POC pO2 (80-95) mmHg POC HCO3 (19-24) hermann/L POC Total CO2 (24-31) mmol/L POC Base Excess (-9-1.8) hermann/L ABG pH 7.42 (7.35-7.45) ABG pCO2 41 (35-46) mmHg ABG pO2 190 H (80-95) mmHg ABG HCO3 26 H (19-24) mmol/L POC ABG O2 Sat (90-95) % ABG O2 Saturation 99.5 H (90-95) % ABG Base Excess 1.6 (-9-1.8) mEq/L Maykel Test POS (Pos) Barometric Pressure 733.1 mm/Hg Oxygen Given 80% O2 Delivery Device POC FiO2 % PEEP Sodium (136-145) mmol/L Potassium (3.5-5.1) mmol/L Chloride (98-107) mmol/L Carbon Dioxide (21-32) mmol/L Anion Gap (3-11) BUN (7-18) mg/dl Creatinine (0.6-1.4) mg/dl Est Cr Clr Drug Dosing Est GFR ( Amer) Est GFR (Non-Af Amer) BUN/Creatinine Ratio (10-20) Glucose (70-99) mg/dl POC Glucose (70-99) mg/dl Lactate 0.9 (0.4-2.0) mmol/L Calcium (8.5-10.1) mg/dl Phosphorus (2.5-4.9) mg/dl Magnesium (1.8-2.4) mg/dl Total Bilirubin (0.2-1) mg/dl AST (15-37) U/L ALT (12-78) U/L Alkaline Phosphatase (45-117) U/L Troponin I (0-0.045) ng/ml C-Reactive Protein (0-0.29) mg/dl Total Protein (6.4-8.2) gm/dl Albumin (3.4-5.0) gm/dl Globulin (2.5-4.0) gm/dl Albumin/Globulin Ratio (0.9-2) Procalcitonin (0-0.5) ng/ml Urine Color Yellow Urine Appearance Cloudy A (Clear) Urine pH 5.0 (4.5-7.5) Ur Specific [place] 1.017 (1.000-1.030) Urine Protein Negative (Negative) Urine Glucose (UA) Negative (Negative) Urine Ketones Negative (Negative) Urine Blood 3+ H (Negative) Urine Nitrite Negative (Negative) Urine Bilirubin Negative (Negative) Urine Urobilinogen Negative (Negative) Ur Leukocyte Esterase 2+ H (Negative) Urine WBC (Auto) >30 H (0-5) /hpf Urine RBC (Auto) >30 H (0-4) /hpf U Hyaline Cast (Auto) 10-30 H (0-5) /lpf U Epithel Cells (Auto) 5-10 H (0-5) /lpf Urine Bacteria (Auto) Negative (Negative) Nasal Screen MRSA (PCR) (Negative) COVID-19 PCR (Negative) 04/09/20 04/09/20 04/09/20 Range/Units 14:20 14:20 14:20 WBC (4.8-10.8) K/uL RBC (4.7-6.1) M/uL Hgb (14.0-18.0) g/dL Hct (42-52) % MCV (80-100) fL MCH (25-34) pg MCHC (32-36) g/dL RDW Std Deviation (36.4-46.3) fL RDW Coeff of Tristan (11.5-14.5) % Plt Count (130-400) K/uL MPV (7.4-10.4) fL Immature Gran % (Auto) % Neut % (Auto) % Lymph % (Auto) % [place] % (Auto) % Eos % (Auto) % Baso % (Auto) % Immature Gran # (Auto) (0.00-0.02) K/uL Neut # (Auto) (1.4-6.5) K/uL Lymph # (Auto) (1.2-3.4) K/uL Marin # (Auto) (0.11-0.59) K/uL Eos # (Auto) (0-0.5) K/uL Baso # (Auto) (0-0.2) K/uL ESR 31 H (0-14) mm/hr PT (9.0-12.0) Seconds INR (0.9-1.1) APTT (21.0-31.0) Seconds PTT Ratio Sample Site POC pH (7.35-7.45) POC pCO2 (35-46) mmHg POC pO2 (80-95) mmHg POC HCO3 (19-24) hermann/L POC Total CO2 (24-31) mmol/L POC Base Excess (-9-1.8) hermann/L ABG pH (7.35-7.45) ABG pCO2 (35-46) mmHg ABG pO2 (80-95) mmHg ABG HCO3 (19-24) mmol/L POC ABG O2 Sat (90-95) % ABG O2 Saturation (90-95) % ABG Base Excess (-9-1.8) mEq/L Maykel Test (Pos) Barometric Pressure mm/Hg Oxygen Given O2 Delivery Device POC FiO2 % PEEP Sodium 141 (136-145) mmol/L Potassium 4.1 (3.5-5.1) mmol/L Chloride 108 H (98-107) mmol/L Carbon Dioxide 25 (21-32) mmol/L Anion Gap 8.0 (3-11) BUN 28 H (7-18) mg/dl Creatinine 1.61 H (0.6-1.4) mg/dl Est Cr Clr Drug Dosing Not Reportable Est GFR ( Amer) 50.9 Est GFR (Non-Af Amer) 43.9 BUN/Creatinine Ratio 17.1 (10-20) Glucose 123 H (70-99) mg/dl POC Glucose (70-99) mg/dl Lactate (0.4-2.0) mmol/L Calcium 8.7 (8.5-10.1) mg/dl Phosphorus 3.5 (2.5-4.9) mg/dl Magnesium 2.5 H (1.8-2.4) mg/dl Total Bilirubin (0.2-1) mg/dl AST (15-37) U/L ALT (12-78) U/L Alkaline Phosphatase (45-117) U/L Troponin I 0.038 (0-0.045) ng/ml C-Reactive Protein 0.60 H (0-0.29) mg/dl Total Protein (6.4-8.2) gm/dl Albumin (3.4-5.0) gm/dl Globulin (2.5-4.0) gm/dl Albumin/Globulin Ratio (0.9-2) Procalcitonin 0.13 (0-0.5) ng/ml Urine Color Urine Appearance (Clear) Urine pH (4.5-7.5) Ur Specific [place] (1.000-1.030) Urine Protein (Negative) Urine Glucose (UA) (Negative) Urine Ketones (Negative) Urine Blood (Negative) Urine Nitrite (Negative) Urine Bilirubin (Negative) Urine Urobilinogen (Negative) Ur Leukocyte Esterase (Negative) Urine WBC (Auto) (0-5) /hpf Urine RBC (Auto) (0-4) /hpf U Hyaline Cast (Auto) (0-5) /lpf U Epithel Cells (Auto) (0-5) /lpf Urine Bacteria (Auto) (Negative) Nasal Screen MRSA (PCR) (Negative) COVID-19 PCR (Negative) 04/09/20 04/09/20 04/09/20 Range/Units 14:20 13:53 13:52 WBC 14.10 H (4.8-10.8) K/uL RBC 4.60 L (4.7-6.1) M/uL Hgb 13.9 L (14.0-18.0) g/dL Hct 42.7 (42-52) % MCV 92.8 (80-100) fL MCH 30.2 (25-34) pg MCHC 32.6 (32-36) g/dL RDW Std Deviation 49.6 H (36.4-46.3) fL RDW Coeff of Tristan 14.6 H (11.5-14.5) % Plt Count 298 (130-400) K/uL MPV 10.6 H (7.4-10.4) fL Immature Gran % (Auto) 0.8 % Neut % (Auto) 79.5 % Lymph % (Auto) 9.9 % Marin % (Auto) 9.0 % Eos % (Auto) 0.6 % Baso % (Auto) 0.2 % Immature Gran # (Auto) 0.11 H (0.00-0.02) K/uL Neut # (Auto) 11.22 H (1.4-6.5) K/uL Lymph # (Auto) 1.39 (1.2-3.4) K/uL Marin # (Auto) 1.27 H (0.11-0.59) K/uL Eos # (Auto) 0.08 (0-0.5) K/uL Baso # (Auto) 0.03 (0-0.2) K/uL ESR (0-14) mm/hr PT (9.0-12.0) Seconds INR (0.9-1.1) APTT (21.0-31.0) Seconds PTT Ratio Sample Site POC pH (7.35-7.45) POC pCO2 (35-46) mmHg POC pO2 (80-95) mmHg POC HCO3 (19-24) hermann/L POC Total CO2 (24-31) mmol/L POC Base Excess (-9-1.8) hermann/L ABG pH (7.35-7.45) ABG pCO2 (35-46) mmHg ABG pO2 (80-95) mmHg ABG HCO3 (19-24) mmol/L POC ABG O2 Sat (90-95) % ABG O2 Saturation (90-95) % ABG Base Excess (-9-1.8) mEq/L Maykel Test (Pos) Barometric Pressure mm/Hg Oxygen Given O2 Delivery Device POC FiO2 % PEEP Sodium (136-145) mmol/L Potassium (3.5-5.1) mmol/L Chloride (98-107) mmol/L Carbon Dioxide (21-32) mmol/L Anion Gap (3-11) BUN (7-18) mg/dl Creatinine (0.6-1.4) mg/dl Est Cr Clr Drug Dosing Est GFR ( Amer) Est GFR (Non-Af Amer) BUN/Creatinine Ratio (10-20) Glucose (70-99) mg/dl POC Glucose (70-99) mg/dl Lactate (0.4-2.0) mmol/L Calcium (8.5-10.1) mg/dl Phosphorus (2.5-4.9) mg/dl Magnesium (1.8-2.4) mg/dl Total Bilirubin (0.2-1) mg/dl AST (15-37) U/L ALT (12-78) U/L Alkaline Phosphatase (45-117) U/L Troponin I (0-0.045) ng/ml C-Reactive Protein (0-0.29) mg/dl Total Protein (6.4-8.2) gm/dl Albumin (3.4-5.0) gm/dl Globulin (2.5-4.0) gm/dl Albumin/Globulin Ratio (0.9-2) Procalcitonin (0-0.5) ng/ml Urine Color Urine Appearance (Clear) Urine pH (4.5-7.5) Ur Specific [place] (1.000-1.030) Urine Protein (Negative) Urine Glucose (UA) (Negative) Urine Ketones (Negative) Urine Blood (Negative) Urine Nitrite (Negative) Urine Bilirubin (Negative) Urine Urobilinogen (Negative) Ur Leukocyte Esterase (Negative) Urine WBC (Auto) (0-5) /hpf Urine RBC (Auto) (0-4) /hpf U Hyaline Cast (Auto) (0-5) /lpf U Epithel Cells (Auto) (0-5) /lpf Urine Bacteria (Auto) (Negative) Nasal Screen MRSA (PCR) Negative (Negative) COVID-19 PCR NEGATIVE (Negative) Diagnostic Findings CXR image personally reviewed by me and with less pulm edema PG Care Time/CCT Total # of Minutes Spent Total Time Spent with Patient: Total time spent is greater than 50% in coordination of care (as documented) at patient's floor/unit and/or counseling patient: Coding Level of Care Code 11195 Subseq Hosp Care Lvl 3 Diagnoses Respiratory failure J96.90 Acute systolic (congestive) heart failure I50.21 NSTEMI (non-ST elevated myocardial infarction) I21.4 ICD (implantable cardioverter-defibrillator) in place Z95.810 Ischemic cardiomyopathy I25.5 Hypertension I10 Hypertension type: essential hypertension Dyslipidemia E78.5 Coronary artery disease I25.10 Associated angina: without angina Coronary Disease-Associated Artery/Lesion type: [place] artery [place] vs. transplanted heart: [place] heart COPD (chronic obstructive pulmonary disease) J44.9 Asthma J45.909 Obstructive sleep apnea of adult G47.33 Diabetes mellitus, type 2 E11.9 Stage III chronic kidney disease N18.3 Vitamin D deficiency E55.9 History of ventricular tachycardia Z86.79 DVT prophylaxis Z29.9 (1) Coronary artery disease Associated angina: without angina Coronary Disease-Associated Artery/Lesion type: [place] artery [place] vs. transplanted heart: [place] heart Qualified Code(s): I25.10 - Atherosclerotic heart disease of [place] coronary artery withou t angina pectoris (2) Hypertension Hypertension type: essential hypertension Qualified Code(s): I10 - Essential (primary) hypertension
[2020-04-10] MEDS: BUMETANIDE 2 MG in SYRINGE 0 ML IV SCH ×2 (08:37→16:27)
--- NOTE | 2020-04-10 08:42 | XRay Report ---
XR chest 1V portable HISTORY: resp failure COMPARISON: Chest 04/09/2020. FINDINGS: Left-sided pacemaker/defibrillator is again noted. No pneumothorax. Right basilar airspace opacity, congestive change, and a trace right pleural effusion have improved. The heart remains mildl y enlarged. Old, healed left-sided rib fractures. Nasogastric tube terminates below the diaphragm. Th e tip is not included on this study. Endotracheal tube terminates approximately 4.4 cm from the jer a. IMPRESSION: 1. Satisfactory support line placement. 2. Improved aeration within the right lung base with improvement in the pulmonary edema and trace rig ht pleural effusion. ACT 112: Negative or not required by law. Electronically signed by: Darion Solano M.D. 04/10/2020 8:40 AM
--- NOTE | 2020-04-10 10:20 | Cardiology Consultation ---
Date of Consultation History is obtained from the chart as well as the patient. He is intubated on CPAP. But is able to answer some questions.He is having right shoulder dis comfort which in the past has been his anginal equivalent. He describes acute onset of shortness of breath.He was intubated on outside hospital.He notes on CPAP his shortness of breath has improved. He denies any central chest tightness or chest pressure or palpitations currently.He has no lower extremity edema or abdominal distention. He denies any palpitations or fluttering at home he denied any syncopal episodes at home.The rest of a complete review of systems is negative April 10, 2020 History of Present Illness Attending Physician: Mayte Magana MD Allergies Allergy/AdvReac Type Severity Reaction Status Date / Time budesonide Allergy Unknown TACHYCARDIA, Verified 01/23/20 14:54 SOB carbamazepine Allergy Unknown TACHYCARDIA, Verified 01/23/20 14:54 PANIC ATTACK cyclobenzaprine Allergy Unknown UNK Verified 01/23/20 14:54 doxycycline Allergy Unknown ABD PAIN Verified 01/23/20 14:54 fluticasone Allergy Unknown UNK Verified 01/23/20 14:54 formoterol Allergy Unknown TACHYCARDIA, Verified 01/23/20 14:54 SOB salmeterol Allergy Unknown ANAPHYLAXIS Verified 01/23/20 14:54 morphine Allergy Unknown Verified 01/23/20 14:54 tiotropium Allergy Unknown Verified 01/23/20 14:54 [From Spiriva with HandiHaler] digoxin AdvReac Unknown BACK AND Verified 01/23/20 14:54 STOMACH PAIN metformin AdvReac Unknown MUSCLE Verified 01/23/20 14:54 ACHES IN BVACK AND KIDNEYS Sodium Propionate Allergy Unknown SHORTNESS Uncoded 01/23/20 14:54 OF BREATH Home Medications Home Medications Medication Instructions Recorded Confirmed Type amiodarone 200 mg PO DAILY 07/22/19 03/31/20 History aspirin [Ecotrin Low Strength] 81 mg PO DAILY 07/22/19 03/31/20 History nitroglycerin 0.4 mg SUBLINGUAL Q5M PRN 07/22/19 03/31/20 History cholecalciferol (vitamin D3) 25 2,000 units PO DAILY tab 11/05/19 03/31/20 History mcg (1,000 unit) tablet coenzyme Q10 100 mg capsule 200 mg PO DAILY cap 11/05/19 03/31/20 History fluticasone propionate 50 2 sprays INTRANASAL DAILY ml 11/05/19 03/31/20 History mcg/actuation nasal spray,suspension isosorbide mononitrate 30 mg 30 mg PO QAM #90 tab 11/05/19 03/31/20 Rx tablet,extended release 24 hr mexiletine 150 mg capsule 150 mg PO BID #180 cap 11/05/19 03/31/20 Rx nystatin 100,000 unit/gram topical 1 appln TOP BID #15 gm 11/05/19 03/23/20 Rx cream triamcinolone acetonide 0.1 % 1 appln TOP TID 11/05/19 03/23/20 History topical cream Bifidobacterium infantis See Rx Instructions PO DAILY 01/21/20 03/31/20 History psyllium 1 tbs PO TID gm 01/23/20 03/31/20 History tramadol 50 mg tablet 50 mg PO Q6H PRN #30 tab 01/23/20 03/31/20 Rx ammonium lactate 12 % lotion 1 appln TOP DAILY PRN #227 gm 02/25/20 Rx bumetanide 1 mg PO QAM #90 tab 03/25/20 03/31/20 Rx metolazone 2.5 mg PO DAILY PRN #10 tab 03/25/20 03/31/20 Rx potassium chloride 20 meq PO DAILY PRN #10 tab 03/25/20 03/31/20 Rx blood sugar diagnostic #100 ea 04/08/20 Rx carvedilol 12.5 mg tablet 37.5 mg PO BID #540 tab 04/08/20 Rx glimepiride 2 mg tablet 2 mg PO DAILY #90 tab 04/08/20 Rx Patient History Medical History Afib (Chronic) Allergic rhinitis (Acute) Asthma (Acute) Cervical radiculopathy (Acute) Chronic systolic heart failure COPD (chronic obstructive pulmonary disease) Coronary artery disease Degenerative cervical disc Diabetes mellitus, type 2 Dyslipidemia Hepatitis C History of ventricular tachycardia Hypertension Impotence, organic Ischemic cardiomyopathy EF 20% December 2019 Nephrolithiasis Obesity Obstructive sleep apnea of adult Osteoarthritis Peripheral neuropathy Renal mass Respiratory failure (03/23/20) Stage III chronic kidney disease Vitamin D deficiency (Chronic) Surgical History History of coronary artery stent placement ICD (implantable cardioverter-defibrillator) in place (07/2017) [place] biventricular ICD Family History Unknown Cardiac disorder Hypertension Diabetes Father Myocardial infarction Mother Myocardial infarction Denies family history of Ovarian cancer Prostate cancer Breast cancer Colorectal cancer Social History Preferred Language: [place]ian Communication Ability: Unable Visual Impairment: No Limitations Hearing Ability: Normal Director Talent Required: No Beliefs That Will Affect Care: None marital status: Current Living Situation: Spouse Current Living Situation Comment: with & son current occupational status: retired Other Information That Helps Us Care for You: No Feels Safe at Home: Yes Safety Concerns: Feels Safe At This Time Smoking Status: Unknown if ever smoked caffeine: No Dental Care, Regularly: No Physical Activity Frequency: 5-6 Times per Week Physical Activity Frequency Comment: walking Seatbelt Use: always Sunscreen Use: No Results & Data ([facility]) Vital Signs (Past 12 Hours) Vital Signs Pulse Resp BP Pulse Ox 04/10/20 09:00 71 98 04/10/20 08:00 67 98 04/10/20 07:24 71 9 L 98 04/10/20 07:00 68 98 04/10/20 06:18 71 124/83 98 04/10/20 06:05 78 11 L 98 04/10/20 06:00 75 99 04/10/20 05:48 77 126/79 100 04/10/20 05:30 74 98 04/10/20 05:25 69 23 100 04/10/20 05:18 63 121/82 99 04/10/20 05:00 62 99 04/10/20 04:48 64 122/78 99 04/10/20 04:30 64 99 04/10/20 04:20 69 98 04/10/20 04:19 67 123/81 97 04/10/20 04:00 65 97 04/10/20 03:48 66 121/74 98 04/10/20 03:30 63 96 04/10/20 03:18 65 126/69 96 04/10/20 03:00 66 97 04/10/20 02:49 68 120/74 96 04/10/20 02:30 67 98 04/10/20 02:19 65 118/72 95 04/10/20 02:00 66 95 04/10/20 01:49 67 103/65 97 04/10/20 01:30 65 97 04/10/20 01:24 68 22 97 04/10/20 01:19 63 100/73 98 04/10/20 01:00 68 91 04/10/20 00:48 67 115/76 92 04/10/20 00:30 67 92 04/10/20 00:18 67 108/68 93 04/10/20 00:00 68 93 04/09/20 23:34 66 91/65 L 92 04/09/20 23:30 69 91 04/09/20 23:20 65 85/64 L 92 04/09/20 23:05 66 108/68 93 04/09/20 23:00 66 93 04/09/20 22:50 70 133/82 95 04/09/20 22:47 68 136/86 94 04/09/20 22:38 71 143/91 H 97 04/09/20 22:34 72 158/99 H 96 04/09/20 22:30 71 97 04/09/20 22:29 72 133/91 97 04/09/20 22:23 70 138/77 97 He is awake alert oriented x3 he is in no acute distress currently in fact he is asking to have the tube removed. H EENT: Severely reduced carotid upstrokes no evidence of carotid bruits his jugular venous pressure appeared mildly elevated Lungs: Decreased breath sounds in the bases no rales rhonchi or wheezing Heart: Regular rate and rhythm (paced) no appreciable murmurs Abdomen soft nontender nondistended positive bowel sounds extremities no clubbing cyanosis or edema psychiatric his affect appeared appropriate Neurologic he is awake alert and oriented and moving all extremities EKG AV sequential pacemaker IMPRESSION: 1A. Acute on chronic systolic heart failure with respiratory failure 1B. 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 2. Severe 3-vessel coronary artery disease, not a candidate for surgical intervention, turned down by CT surgery at [facility]. 3. Severe mitral regurgitation. 4. Status post biventricular defibrillator. 5. Chronic systolic heart failure. 6. Chronic kidney disease stage III. 7. Use of amiodarone and mexiletine For VT storm 8. Bilateral renal masses, most consistent with renal cell carcinoma, turned down for surgery by urology both at [facility] and [facility]. 9. Chronic angina 10. Non-ST elevation myocardial infarction He seems appropriate for extubation this morning based on the critical care services input. I would add Nitropaste 1 inch AC W every 6 hours for his right shoulder pain which is likely his anginal equivalent He should remain on heparin for 48 hours. He has had a history of hemoptysis though on anticoagulation We will have to adjust his diuretics based on his renal function. He has been taking 2 mg of Bumex on a regular basis And is on 2 mg IV here. I would consider a palliative care consultation. He has inoperable renal masses as well as inoperable three-vessel coronary artery disease. His prognosis unfortunately is poor and compared to the last time I saw him about a year ago he is lost a significant amount of weight likely related to cardiac cachexia.
[2020-04-10] MEDS ORDERED: ACETAMINOPHEN 1,000 MG/100 ML VIAL IV STA (10:36)
[2020-04-10] MEDS: PANTOprazole 40 MG in SYRINGE 0 ML IV SCH (11:02)
--- NOTE | 2020-04-10 12:07 | Electrocardiogram Report ---
Test Reason : Blood Pressure : / mmHG Vent. Rate : 071 BPM Atrial Rate : 071 BPM P-R Int : 144 ms QRS Dur : 174 ms QT Int : 532 ms P-R-T Axes : 078 -88 057 degrees QTc Int : 578 ms Atrial-sensed ventricular-paced rhythm Biventricular pacemaker detected Abnormal ECG When compared with ECG of 18-JAN-2020 06:52, Vent. rate has increased BY 5 BPM Normal sinus rhythm has replaced Atrial paced Rhythm Confirmed by Cristian Jose ([id number]) on 04/10/2020 12:07:33 PM Referred By: Mayte Magana Confirmed By:Cristian Jose
--- NOTE | 2020-04-10 12:08 | Electrocardiogram Report ---
Test Reason : Blood Pressure : / mmHG Vent. Rate : 060 BPM Atrial Rate : 060 BPM P-R Int : 154 ms QRS Dur : 206 ms QT Int : 516 ms P-R-T Axes : 098 258 068 degrees QTc Int : 516 ms AV dual-paced rhythm Biventricular pacemaker detected Abnormal ECG When compared with ECG of 09-APR-2020 22:32, (unconfirmed) Vent. rate has decreased BY 11 BPM A paced has replaced NSR Confirmed by Cristian Jose ([id number]) on 04/10/2020 12:08:40 PM Referred By: Mayte Magana Confirmed By:Cristian Jose
[2020-04-10 13:09] LABS: Partial Thromboplastin Ratio 2.2
[2020-04-10 13:14] LABS: Partial Thromboplastin Time 62.6 Seconds (21.0-31.0)
[2020-04-10] MEDS: AMIODARONE 200 MG TAB PO SCH (13:30)
[2020-04-10] MEDS: ISOSORBIDE MONO EXTENDED REL 30 MG TABCR PO SCH (13:30)
[2020-04-10] MEDS: ASPIRIN 81 MG ECTAB PO SCH (13:31)
[2020-04-10] MEDS ORDERED: Nursing to Pharmacy Communication ONE ×3 (14:16→18:33)
[2020-04-10] MEDS: ACETAMINOPHEN 325 MG TAB PO PRN ×2 (15:12→22:54)
[2020-04-10] MEDS: HEPARIN SODIUM/DEXTROSE 25,000 UNITS/500 ML BAG IV SCH (17:54)
--- NOTE | 2020-04-10 19:21 | Critical Care Progress Note ---
Date of Service April 10, 2020 Assessment & Plan (1) Acute systolic (congestive) heart failure: Reason Critically Ill: 64-year-old male with acute congestive heart failure leading to acute hypoxemic respiratory failure, and ACS (not candidate for intervention) PLAN: Neuro: [facility] ICU: Negative Resp: Acute hypoxic respiratory failure -Weaned from ventilator this a.m.; currently maintaining sats on nasal cannula. We will continue to wean oxygen as tolerated -No indication for antibiotic coverage at this time -Continue diuresis CV: Acute on chronic congestive heart failure -Weaned from vasoactive medications -Continuing diuresis -Continue to monitor daily weights, strict I's and O's -Restarting home med regimen Ischemic cardiomyopathy History atrial fibrillation with RVR Hypertension: Essential ACSpatient with advanced three-vessel coronary artery disease -Patient was spearing seeing chest pain overnight and had ST segment changes on EKG, and paced rhythm but significant change from prior study -Case was reviewed by interventional cardiology, see communication note and subjective; proceed with medical management -Cardiology consulted, patient not candidate for surgical interventions -Palliative consulted and goals of care discussed with patient, will continue medical management with heparin drip -We will continue to trend troponin for downtrend Fluids/Renal: Stage III chronic kidney disease -Aggressive diuresis: Bumex 2 mg twice daily ID: Blood cultures NTD, urine culture positive for enterococcus species with sensitivities to follow Sputum culture positive for Staphylococcus species, MRSA swab negative Starting broad-spectrum antibiotics, narrow with sensitivities GI/Nutrition: Advancing diet as tolerated, heart healthy diabetic LFTs unremarkable Heme: Anemia: Chronic at baseline DVT prophylaxis: Heparin drip Endocrine: ICU hyperglycemia protocol Insulin-dependent diabetes mellitus -Sliding scale ordered Vascular access: Peripheral IVs Code Status: DNR, see subjective Disposition: ICU I have personally spent 45 minutes of critical care time in the direct management of this patient. This is a life/limb threatening event. This includes time spent evaluating patient, direct bedside care, chart review, placing orders, interpretation of diagnostic studies, discussion with consultants, patient, and family members, as well as other required patient management activities. This time is exclusive of all separately billable procedures, and teaching time and separate from and in addition to any other critical care service time. Thank you for allowing us to participate in the care of this patient. Please refer to my attending physician's documentation for any further recommendations. (2) Admitted to intensive care unit: (3) Respiratory failure: (4) Stage III chronic kidney disease: (5) Obstructive sleep apnea of adult: (6) Ischemic cardiomyopathy: (7) ICD (implantable cardioverter-defibrillator) in place: (8) Dyslipidemia: Admission and Anticipated Discharge Date Admission Date: April 09, 2020 Subjective Overnight the patient was experiencing chest pain and was able to communicate that while intubated. He did have ST changes on EKG in anterior leads, and interventional cardiology was contacted. Initial troponins were negative and he was no longer experiencing chest pain, or proceed with medical management and trending troponins. Troponins did elevate significantly throughout the day, cardiology was consulted. Apparently patient has been previously worked up for three-vessel disease but was not candidate for surgical interventions. We will proceed with medical management. I have consulted palliative care. I had a discussion with the patient who is now extubated and is currently hemodynamically stable without need for vasopressors and on nasal cannula, concerning his CODE STATUS. He is aware of his comorbidities and prognosis. Per his wishes he would like to proceed with medical management as he has grandchildren that he would like to continue to spend time with of possible, however in the event his heart were to stop he would not want to be resuscitated, and CODE STATUS now changed to DNR. We will proceed with medical management at this time, and patient is aware that he is not a candidate for surgical interventions due to the advanced stage of his disease. Currently patient denies pain, headache, syncope, dizziness, cough, sore throat, shortness of breath, chest pain, palpitations, abdominal pain, nausea or vomiting, or diarrhea. He is currently hemodynamically stable without need for vasopressors and weaning supplemental oxygen as tolerated. We will proceed with diuresis, will continue to observe in ICU overnight and likely downgrade in the morning if no acute events overnight. Review of Systems Review of Systems: All systems reviewed & are unremarkable except as noted in Subjective Physical Exam Constitutional: cooperative and comfortable Eyes: PERRL, conjunctivae normal, anicteric sclerae ENMT: external ear and nose normal, oropharynx normal Neck: trachea midline, no thyromegaly Respiratory: normal respiratory effort, lungs clear to auscultation Cardiovascular: Rate/Rhythm: regular rate and regular rhythm Vessels: normal peripheral pulses; no JVD Extremities: normal capillary refill; no pedal edema and no edema Gastrointestinal (Abdomen): normal bowel sounds, soft, nontender, no hepatosplenomegaly Skin: no rashes, warm and dry Neurologic: PERRL, EOMI, accommodation nl, no face palsy, no dysarthria Psychiatric: A+Ox3, euthymic affect Results & Data Results & Data ([facility]) Vital Signs (Past 12 Hours) Vital Signs Pulse Resp BP Pulse Ox 04/10/20 18:00 64 97 04/10/20 17:30 66 98 04/10/20 17:14 67 97/55 L 97 04/10/20 17:00 65 99 04/10/20 16:30 63 95 04/10/20 16:16 68 90/57 L 96 04/10/20 16:13 63 106/65 94 04/10/20 16:00 60 97 04/10/20 15:30 63 98 04/10/20 14:49 65 112/79 04/10/20 14:19 69 141/73 H 04/10/20 14:00 63 04/10/20 13:49 73 114/71 04/10/20 13:38 64 117/67 04/10/20 13:30 65 97 04/10/20 13:27 64 100/59 L 96 04/10/20 13:00 77 92 04/10/20 12:49 62 117/62 94 04/10/20 12:30 66 94 04/10/20 12:19 64 108/66 90 04/10/20 12:00 65 90 04/10/20 11:49 62 114/65 92 04/10/20 11:30 63 94 04/10/20 11:19 66 91/50 L 95 04/10/20 11:00 67 94 04/10/20 10:49 66 110/64 94 04/10/20 10:30 70 96 04/10/20 10:19 72 120/83 98 04/10/20 10:00 78 124/83 98 04/10/20 09:48 67 125/75 98 04/10/20 09:30 68 96 04/10/20 09:18 68 122/78 96 04/10/20 09:00 71 98 04/10/20 08:00 67 98 04/10/20 07:24 71 9 L 98 Coding Level of Care Code Critical Care 1st 30-74 mins Diagnoses Acute systolic (congestive) heart failure I50.21 Admitted to intensive care unit Z78.9 Respiratory failure J96.90 Stage III chronic kidney disease N18.3 Obstructive sleep apnea of adult G47.33 Ischemic cardiomyopathy I25.5 ICD (implantable cardioverter-defibrillator) in place Z95.810 Dyslipidemia E78.5
[2020-04-10] MEDS ORDERED: PIPERACILLIN/TAZOBACTAM 4.5 GM in DEXTROSE 5% 100 ML IV STA (20:20)
[2020-04-10] MEDS ORDERED: PIPERACILL/TAZOBAC CONSULT ACTIVE PRN (20:20)
[2020-04-10] MEDS ORDERED: PIPERACILLIN/TAZOBACTAM 3.375 GM in DEXTROSE 5% 100 ML IV ONE (20:45)
[2020-04-10] MEDS: MEXILETINE HCL 150 MG CAPSULE PO SCH (22:10)
[2020-04-10] MEDS: carvediloL 25 MG TAB PO SCH (22:27)
[2020-04-11] MEDS ORDERED: NITROGLYCERIN SL 0.4 MG/TAB TAB ONE (02:09)
[2020-04-11] MEDS ORDERED: NITROGLYCERIN SL 0.4 MG/TAB TAB SL PRN (02:12)
[2020-04-11] MEDS ORDERED: HYDROmorphone INJ 0.5 MG/0.5 ML SYR IV STA (02:22)
[2020-04-11] MEDS: PIPERACILLIN/TAZOBACTAM 3.375 GM in DEXTROSE 5% 100 ML IV SCH ×2 (02:57→09:47)
[2020-04-11 04:35] LABS: Hematocrit (blood only) 38.4 % (42-52); Hemoglobin 12.8 g/dL (14.0-18.0); Mean Corpuscular Hemoglobin 30.7 pg (25-34); Mean Corpuscular Hgb Conc 33.3 g/dL (32-36); Mean Corpuscular Volume 92.1 fL (80-100); Mean Platelet Volume 10.4 fL (7.4-10.4); Platelet Count 197 K/uL (130-400); RDW Coefficient of Variation 14.6 % (11.5-14.5); RDW Standard Deviation 49.7 fL (36.4-46.3); Red Blood Count 4.17 M/uL (4.7-6.1); White Blood Count 11.65 K/uL (4.8-10.8)
[2020-04-11 04:53] LABS: Albumin Level 2.9 gm/dl (3.4-5.0); Calcium 8.5 mg/dl (8.5-10.1); Creatinine Clr Calc Pharmacy 46.8 ml/min; Est GFR (African American) 47.3; Est GFR (Non-African American) 40.8; Magnesium 2.1 mg/dl (1.8-2.4); Potassium 3.5 mmol/L (3.5-5.1)
[2020-04-11 04:56] LABS: Partial Thromboplastin Ratio 2.2
[2020-04-11 04:59] LABS: Albumin Globulin Ratio 0.8 (0.9-2); Bilirubin,Total 0.9 mg/dl (0.2-1); Globulin 3.5 gm/dl (2.5-4.0); Total Protein 6.4 gm/dl (6.4-8.2); Troponin I 28.5 ng/ml (0-0.045)
[2020-04-11 05:01] LABS: Partial Thromboplastin Time 62.1 Seconds (21.0-31.0)
[2020-04-11] MEDS ORDERED: POTASSIUM CHLORIDE 20 MEQ TABCR PO STA ×2 (05:14→10:57)
[2020-04-11] MEDS: BUMETANIDE 2 MG in SYRINGE 0 ML IV SCH (07:47)
[2020-04-11] MEDS: AMIODARONE 200 MG TAB PO SCH (07:47)
[2020-04-11] MEDS: carvediloL 25 MG TAB PO SCH ×2 (07:48→20:59)
[2020-04-11] MEDS: ISOSORBIDE MONO EXTENDED REL 30 MG TABCR PO SCH (07:49)
[2020-04-11] MEDS: ASPIRIN 81 MG ECTAB PO SCH (07:49)
[2020-04-11] MEDS: MEXILETINE HCL 150 MG CAPSULE PO SCH ×2 (07:49→20:59)
[2020-04-11] MEDS: INSULIN ASPART 100 UNITS/ML 3 ML PEN SC SCH ×4 (07:51→20:59)
[2020-04-11] MEDS: ACETAMINOPHEN 325 MG TAB PO PRN (08:59)
[2020-04-11] MEDS ORDERED: COUGH DROP (SUGAR FREE) LOZ 24 LOZ/1 BOX BUCCAL ONE (09:34)
[2020-04-11] MEDS: PANTOprazole 40 MG in SYRINGE 0 ML IV SCH (09:47)
[2020-04-11] MEDS ORDERED: CLOPIDOGREL BISULFATE 300 MG TAB PO STA (10:54)
--- NOTE | 2020-04-11 10:55 | Hospitalist Progress Note ---
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 Had a lengthy discussion with patient regarding goals of care and he is unsure whether he would want to be intubated again in the future for similar presentation. He is clear that he no longer wants any CPR if he has cardiac arrest and he was changed to a DNR. (2) Acute systolic (congestive) heart failure: With acute on chronic systolic CHF-severe - Has had multiple hospitalization for CHF including ventilator dependent respiratory failure -His weight was not up significantly from previous although he is having cardiac cachexia likely as per Cardio and has lost muscle mass -With pulmonary edema secondary to NSTEMI and diastolic dysfunction -now off Levophed for blood pressure support - Cardiology consult appreciated-not a candidate for any surgery for his severe CAD, has end-stage CAD with cardiac cachexia - Last echo Dec 2019 with EF of 15-20% Has diuresed 2.7 L net negative and weight is down slightly from admission. Not in any current respiratory distress Creatinine is starting to creep back up Convert back to Bumex 2 mg p.o. twice daily for today and then once daily starting tomorrow -Follow electrolytes -Continue amiodarone and mexiletine, isosorbide and carvedilol, but will reduce carvedilol dosing to 25 mg p.o. twice daily for hypotension -Continue Asa -He has not tolerated Entresto in the past and had profound hypotension and hyperkalemia, blood pressures too low to consider adding on CLIFTON inhibitor at this time -Daily weights, strict I's and O's -Appreciate palliative care consultation for goals of care discussion given his end-stage CHF -Discontinue Alegria catheter (3) NSTEMI (non-ST elevated myocardial infarction): Patient started complaining of right shoulder pain while he was on the ventilator on the night of 04/09 ECG obtained which showed AV paced rhythm with possible ST elevation in the precordial anterior leads, serial troponin did trend upward to 28 and then trended back downward today Cardiology reports previous anginal equivalent was with right shoulder pain similar to this, however patient continues to deny this He has a history of severe three-vessel coronary artery disease and was not a surgical candidate He is continuing to have consistent right shoulder pain today -Was started on heparin drip-48 hours will be tonight and will stop this -Load with Plavix 600 mg p.o. x1 today and then 75 mg daily tomorrow -Continue aspirin -No intervention indicated as per cardiology-he is not a candidate for intervention or CT surgery -Continue home isosorbide, carvedilol at a lower dose as above, aspirin -Palliative care consultation placed (4) ICD (implantable cardioverter-defibrillator) in place: - Noted (5) Ischemic cardiomyopathy: -As noted above (6) Hypertension: - PUBLIC RELATIONS MANAGER on BB and isosorbide, but was requiring vasopressor support upon admission and these were held -Now off Levophed and pressures low at times which is likely due to his very poor EF -Decreased dose of carvedilol to 25 mg p.o. twice daily as above, and continue isosorbide -Continues on Bumex (7) Dyslipidemia: - Not on statin therapy, ?intolerance (8) Coronary artery disease: - Hx of inoperable CAD -Continue Asa, carvedilol, isosorbide - Not on statin therapy, ? intolerance (9) COPD (chronic obstructive pulmonary disease): - Not on inhalers as outpt - Consider formal PFTs as outpt (10) Asthma: - Noted (11) Obstructive sleep apnea of adult: -Continue Cpap HS and with naps now that he is extubated (12) Diabetes mellitus, type 2: - ISS with accuchecks ACHS - Last A1C = 7.3 on 01/17/20 - Hold glimeperide, and continue with insulin protocol as per ICU (13) Stage III chronic kidney disease: - Baseline Cr 1.6-1.8. -With acute kidney injury here with creatinine of 2.0 at outside hospital-was improving here down to 1.47 which is his baseline, but now back up to 1.7 with continued IV diuretics - Hx of renal mass thought to be malignancy but pt is not a surgical candidate due to medical comorbidities - Renally dose medications, avoid nephrotoxins -Convert to p.o. Bumex as above - Trend BMP with am labs (14) Vitamin D deficiency: -Restart home supplement of vitamin D in the morning (15) History of ventricular tachycardia: With a history of ventricular tachycardia storm Having frequent PVCs here -Continue mexiletine and amiodarone -Follow on telemetry (16) DVT prophylaxis: - teds, heparin drip to end on the evening of 04/11 GI prophylaxis-PPI CODE: DNR, however patient reports that he is undecided about repeat intubation if has recurrent severe pulmonary edema Dispo: stable for downgrade to PCU today Awaiting palliative care consultation on Sunday to discuss goals of care given multiple hospital admissions for end-stage CHF Admission and Anticipated Discharge Date Admission Date: April 09, 2020 Subjective Pt continuing to have right shoulder pain that radiates through the right side of his chest and to his mid back. Dilaudid only helped for about an hour and he is requesting something by mouth like oxycodone. Some shortness of breath remains on 5 L. I discussed the case with the wheel tuner and cardiology today. Troponin trended upward to 28. Review of Systems Review of Systems: All systems reviewed & are unremarkable except as noted in HPI & below Physical Exam 2 Constitutional: WD/WN, vitals as above Eyes: + anicteric sclerae; no conjunctival abnormality ENMT: Ears: no hearing impairment Neck: trachea midline, no thyromegaly Respiratory: normal respiratory effort; no labored breathing Auscultation: + wheezes (a few scattered wheezes, no rhonchi, +crackles at bases) Cardiovascular: RRR, no murmur, no edema Chest (Breasts): Chest: + pacemaker (left anterior chest wall) Gastrointestinal (Abdomen): normal bowel sounds, soft, nontender, no hepatosplenomegaly Musculoskeletal: Extremities: extremities normal to inspection; no cyanosis and no clubbing Skin: no rashes, warm and dry Neurologic: moves all extremities and awake; no focal motor deficits Genitourinary: Alegria catheter in place with dark yellow urine that is clear Lymphatic: no lymphedema Results & Data Results & Data ([facility]) Vital Signs (Past 12 Hours) Vital Signs Temp Pulse BP Pulse Ox 04/11/20 10:15 71 86/56 L 95 04/11/20 10:00 65 97 04/11/20 09:15 71 89/63 L 97 04/11/20 09:00 70 96 04/11/20 08:16 74 96 04/11/20 08:15 75 101/60 96 04/11/20 08:00 36.7 C 72 95 04/11/20 07:15 78 109/74 97 04/11/20 07:00 75 96 04/11/20 06:30 70 96 04/11/20 06:15 74 92/56 L 96 04/11/20 06:00 71 96 04/11/20 05:30 72 92 04/11/20 05:15 71 111/71 94 04/11/20 05:00 70 93 04/11/20 04:30 70 92 04/11/20 04:14 71 112/71 98 04/11/20 04:00 36.5 C 68 97 04/11/20 03:30 66 94 04/11/20 03:15 100 H 95/57 L 97 04/11/20 03:00 66 97 04/11/20 02:30 60 95 04/11/20 02:18 63 90/57 L 93 04/11/20 02:15 90/57 L 93 04/11/20 02:00 63 96 04/11/20 01:30 62 95 04/11/20 01:14 62 92/57 L 94 04/11/20 01:00 60 95 04/11/20 00:30 60 91 04/11/20 00:16 62 87/57 L 93 04/11/20 00:00 36.7 C 64 92 04/10/20 23:30 66 90 04/10/20 23:14 70 110/60 97 04/10/20 23:00 72 96 Laboratory Results 04/11/20 04/11/20 04/11/20 Range/Units 16:02 11:10 09:48 WBC (4.8-10.8) K/uL RBC (4.7-6.1) M/uL Hgb (14.0-18.0) g/dL Hct (42-52) % MCV (80-100) fL MCH (25-34) pg MCHC (32-36) g/dL RDW Std Deviation (36.4-46.3) fL RDW Coeff of Tristan (11.5-14.5) % Plt Count (130-400) K/uL MPV (7.4-10.4) fL APTT (21.0-31.0) Seconds PTT Ratio Sodium (136-145) mmol/L Potassium (3.5-5.1) mmol/L Chloride (98-107) mmol/L Carbon Dioxide (21-32) mmol/L Anion Gap (3-11) BUN (7-18) mg/dl Creatinine (0.6-1.4) mg/dl Est Cr Clr Drug Dosing ml/min Est GFR ( Amer) Est GFR (Non-Af Amer) BUN/Creatinine Ratio (10-20) Glucose (70-99) mg/dl POC Glucose 124 H 199 H (70-99) mg/dl Calcium (8.5-10.1) mg/dl Magnesium (1.8-2.4) mg/dl Total Bilirubin (0.2-1) mg/dl AST (15-37) U/L ALT (12-78) U/L Alkaline Phosphatase (45-117) U/L Troponin I 24.900 H* (0-0.045) ng/ml Total Protein (6.4-8.2) gm/dl Albumin (3.4-5.0) gm/dl Globulin (2.5-4.0) gm/dl Albumin/Globulin Ratio (0.9-2) 04/11/20 04/11/20 04/11/20 Range/Units 07:20 04:12 04:12 WBC 11.65 H (4.8-10.8) K/uL RBC 4.17 L (4.7-6.1) M/uL Hgb 12.8 L (14.0-18.0) g/dL Hct 38.4 L (42-52) % MCV 92.1 (80-100) fL MCH 30.7 (25-34) pg MCHC 33.3 (32-36) g/dL RDW Std Deviation 49.7 H (36.4-46.3) fL RDW Coeff of Tristan 14.6 H (11.5-14.5) % Plt Count 197 (130-400) K/uL MPV 10.4 (7.4-10.4) fL APTT (21.0-31.0) Seconds PTT Ratio Sodium 140 (136-145) mmol/L Potassium 3.5 (3.5-5.1) mmol/L Chloride 102 (98-107) mmol/L Carbon Dioxide 28 (21-32) mmol/L Anion Gap 10.0 (3-11) BUN 22 H (7-18) mg/dl Creatinine 1.71 H (0.6-1.4) mg/dl Est Cr Clr Drug Dosing 46.8 ml/min Est GFR ( Amer) 47.3 Est GFR (Non-Af Amer) 40.8 BUN/Creatinine Ratio 13.0 (10-20) Glucose 145 H (70-99) mg/dl POC Glucose 133 H (70-99) mg/dl Calcium 8.5 (8.5-10.1) mg/dl Magnesium 2.1 (1.8-2.4) mg/dl Total Bilirubin 0.9 (0.2-1) mg/dl AST 213 H (15-37) U/L ALT 52 (12-78) U/L Alkaline Phosphatase 42 L (45-117) U/L Troponin I 28.500 H* (0-0.045) ng/ml Total Protein 6.4 (6.4-8.2) gm/dl Albumin 2.9 L (3.4-5.0) gm/dl Globulin 3.5 (2.5-4.0) gm/dl Albumin/Globulin Ratio 0.8 L (0.9-2) 04/11/20 04/10/20 Range/Units 04:12 21:57 WBC (4.8-10.8) K/uL RBC (4.7-6.1) M/uL Hgb (14.0-18.0) g/dL Hct (42-52) % MCV (80-100) fL MCH (25-34) pg MCHC (32-36) g/dL RDW Std Deviation (36.4-46.3) fL RDW Coeff of Tristan (11.5-14.5) % Plt Count (130-400) K/uL MPV (7.4-10.4) fL APTT 62.1 H* (21.0-31.0) Seconds PTT Ratio 2.2 Sodium (136-145) mmol/L Potassium (3.5-5.1) mmol/L Chloride (98-107) mmol/L Carbon Dioxide (21-32) mmol/L Anion Gap (3-11) BUN (7-18) mg/dl Creatinine (0.6-1.4) mg/dl Est Cr Clr Drug Dosing ml/min Est GFR ( Amer) Est GFR (Non-Af Amer) BUN/Creatinine Ratio (10-20) Glucose (70-99) mg/dl POC Glucose 125 H (70-99) mg/dl Calcium (8.5-10.1) mg/dl Magnesium (1.8-2.4) mg/dl Total Bilirubin (0.2-1) mg/dl AST (15-37) U/L ALT (12-78) U/L Alkaline Phosphatase (45-117) U/L Troponin I (0-0.045) ng/ml Total Protein (6.4-8.2) gm/dl Albumin (3.4-5.0) gm/dl Globulin (2.5-4.0) gm/dl Albumin/Globulin Ratio (0.9-2) PG Care Time/CCT Total # of Minutes Spent Total Time Spent with Patient: Total time spent is greater than 50% in coordination of care (as documented) at patient's floor/unit and/or counseling patient: Coding Level of Care Code 61561 Subseq Hosp Care Lvl 3 Diagnoses Respiratory failure J96.90 Acute systolic (congestive) heart failure I50.21 NSTEMI (non-ST elevated myocardial infarction) I21.4 ICD (implantable cardioverter-defibrillator) in place Z95.810 Ischemic cardiomyopathy I25.5 Hypertension I10 Hypertension type: essential hypertension Dyslipidemia E78.5 Coronary artery disease I25.10 Associated angina: without angina Coronary Disease-Associated Artery/Lesion type: [place] artery [place] vs. transplanted heart: [place] heart COPD (chronic obstructive pulmonary disease) J44.9 Asthma J45.909 Obstructive sleep apnea of adult G47.33 Diabetes mellitus, type 2 E11.9 Stage III chronic kidney disease N18.3 Vitamin D deficiency E55.9 History of ventricular tachycardia Z86.79 DVT prophylaxis Z29.9 (1) Coronary artery disease Associated angina: without angina Coronary Disease-Associated Artery/Lesion type: [place] artery [place] vs. transplanted heart: [place] heart Qualified Code(s): I25.10 - Atherosclerotic heart disease of [place] coronary artery without angina pectoris (2) Hypertension Hypertension type: essential hypertension Qualified Code(s): I10 - Essential (primary) hypertension
--- NOTE | 2020-04-11 11:04 | Cardiology Progress Note ---
Date of Service He is awake alert oriented x3. He looks much better than yesterday. He is having significant right shoulder discomfort that radiates into his back which is his anginal equivalent. He denies any central chest tightness. Denies any palpitations or fluttering. He has no lower extremity edema. He has no abdominal distention. The rest of a complete her systems otherwise negative April 11, 2020 Results & Data Vital Signs (Past 12 Hours) Vital Signs Temp Pulse BP Pulse Ox 04/11/20 10:15 71 86/56 L 95 04/11/20 10:00 65 97 04/11/20 09:15 71 89/63 L 97 04/11/20 09:00 70 96 04/11/20 08:16 74 96 04/11/20 08:15 75 101/60 96 04/11/20 08:00 36.7 C 72 95 04/11/20 07:15 78 109/74 97 04/11/20 07:00 75 96 04/11/20 06:30 70 96 04/11/20 06:15 74 92/56 L 96 04/11/20 06:00 71 96 04/11/20 05:30 72 92 04/11/20 05:15 71 111/71 94 04/11/20 05:00 70 93 04/11/20 04:30 70 92 04/11/20 04:14 71 112/71 98 04/11/20 04:00 36.5 C 68 97 04/11/20 03:30 66 94 04/11/20 03:15 100 H 95/57 L 97 04/11/20 03:00 66 97 04/11/20 02:30 60 95 04/11/20 02:18 63 90/57 L 93 04/11/20 02:15 90/57 L 93 04/11/20 02:00 63 96 04/11/20 01:30 62 95 04/11/20 01:14 62 92/57 L 94 04/11/20 01:00 60 95 04/11/20 00:30 60 91 04/11/20 00:16 62 87/57 L 93 04/11/20 00:00 36.7 C 64 92 04/10/20 23:30 66 90 04/10/20 23:14 70 110/60 97 Cardiac catheterization at [facility] which revealed a 50% ostial left main lesion, 70% distal left main lesion, ostial 60% LAD lesion, 40% mid LAD lesion and a 60-70% D1 lesion. --- turned down for surgical intervention at [facility]. He is awake alert oriented x3 he is in no acute distress HEENT: Severely reduced carotid upstrokes no evidence of carotid bruits his jugular venous pressure appeared mildly elevated Lungs: Globally Decreased breath sounds Heart: Regular rate and rhythm (paced) no appreciable murmurs Abdomen soft nontender nondistended positive bowel sounds extremities no clubbing cyanosis or edema psychiatric his affect appeared appropriate Neurologic he is awake alert and oriented and moving all extremities EKG AV sequential pacemaker trop 28 IMPRESSION: 1A. Acute on chronic systolic heart failure with respiratory failure likely secondary to diastolic heart failure from coronary ischemia 1B. 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 2. Severe left main disease and proximal LAD disease not a candidate for surgical intervention, turned down by CT surgery at [facility]. 3. Severe mitral regurgitation. 4. Status post biventricular defibrillator. 5. Chronic systolic heart failure. 6. Chronic kidney disease stage III. 7. Use of amiodarone and mexiletine For VT storm 8. Bilateral renal masses, most consistent with renal cell carcinoma, turned down for surgery by urology both at [facility] and [facility]. 9. Chronic angina 10. Non-ST elevation myocardial infarction His troponin continues to rise. Likely his episode this admission and his episode 3 weeks ago was related to coronary ischemia leading to diastolic dysfunction and acute heart failure. He was turned down by CT surgery at [facility]. He is not an interventional cardiology candidate given his proximal and distal left main disease and proximal LAD disease. With his severe LV dysfunction and severe MR he would not survive the procedure even with the use of an Impella device. In discussion with the hospitalist we will continue his heparin for 48 hours which will complete tonight. We will load him with 600 mg of Plavix. He will remain on aspirin therapy. Given his severe LV dysfunction he will live with a blood pressure in the 90s and not be symptomatic. We will restart his outpatient Bumex 2 mg a day. He remains on amiodarone and mexiletine to reduce his risk of acute very recurrent ventricular arrhythmias. His right shoulder pain is his anginal equivalent even though he thinks it is his lungs. We had a long discussion with regards to end-of-life discussions. Including reintubation or the use of BiPAP and the fact that his coronary disease is inoperable and he has bilateral renal masses that are also inoperable due to his underlying cardiac conditions. We did discuss hospice or palliative care as a bridge to hospice. Given his low blood pressures we will reduce his carvedilol from 37-1/2 mg twice daily to 25 mg twice daily.
[2020-04-11] MEDS: OXYCODONE HCL IR 5 MG TAB (IMMEDIATE RELEASE) PO PRN ×2 (11:29→20:58)
--- NOTE | 2020-04-11 12:42 | Critical Care Progress Note ---
Date of Service April 11, 2020 Assessment & Plan (1) Acute systolic (congestive) heart failure: Reason Critically Ill: 64-year-old male with acute congestive heart failure leading to acute hypoxemic respiratory failure, and ACS (not candidate for intervention) PLAN: Neuro: CAM ICU: Negative Resp: Acute hypoxic respiratory failure -Successfully liberated from the ventilator yesterday CV: Acute on chronic congestive heart failure -Weaned from vasoactive medications -Continuing diuresis -Restarting home med regimen Ischemic cardiomyopathy History atrial fibrillation with RVR Hypertension: Essential -Cardiology consulted, patient not candidate for surgical interventions -Not a candidate for destination therapy Fluids/Renal: Stage III chronic kidney disease -Bumex 2 mg twice daily ID: Discontinuing antibiotics today GI/Nutrition: Advancing diet as tolerated, heart healthy diabetic LFTs unremarkable Heme: Anemia: Chronic at baseline DVT prophylaxis: Heparin drip Endocrine: ICU hyperglycemia protocol Insulin-dependent diabetes mellitus -Sliding scale ordered Vascular access: Peripheral IVs Code Status: DNR Disposition: Stable for downgrade to telemetry status. I have personally spent 45 minutes of critical care time in the direct management of this patient. This is a life/limb threatening event. This includes time spent evaluating patient, direct bedside care, chart review, placing orders, interpretation of diagnostic studies, discussion with consultants, patient, and family members, as well as other required patient management activities. This time is exclusive of all separately billable procedures, and teaching time and separate from and in addition to any other critical care service time. Thank you for allowing us to participate in the care of this patient. Please refer to my attending physician's documentation for any further recommendations. (2) Admitted to intensive care unit: (3) Respiratory failure: (4) Stage III chronic kidney disease: (5) Obstructive sleep apnea of adult: (6) Ischemic cardiomyopathy: (7) ICD (implantable cardioverter-defibrillator) in place: (8) Dyslipidemia: Admission and Anticipated Discharge Date Admission Date: April 09, 2020 Subjective No overnight events. I was informed by Lesley LANE that the patient has elected to become DO NOT RESUSCITATE in event of cardiac arrest. I know he has had extensive discussions with palliative care in the past as well as cardiology. I believe this to be appropriate Review of Systems Review of Systems: No significant shortness of breath, no significant peripheral edema. Physical Exam Physical Exam: General: Alert. nontoxic. Skin: Warm, dry, Head: Atraumatic Ears, nose, mouth and throat: airway patent Cardiovascular: Normal peripheral perfusion Respiratory: no respiratory distress Gastrointestinal: Non distended Musculoskeletal: No deformity Results & Data Results & Data ([facility]) Vital Signs (Past 12 Hours) Vital Signs Temp Pulse BP Pulse Ox 04/11/20 10:15 71 86/56 L 95 04/11/20 10:00 65 97 04/11/20 09:15 71 89/63 L 97 04/11/20 09:00 70 96 04/11/20 08:16 74 96 04/11/20 08:15 75 101/60 96 04/11/20 08:00 36.7 C 72 95 04/11/20 07:15 78 109/74 97 04/11/20 07:00 75 96 04/11/20 06:30 70 96 04/11/20 06:15 74 92/56 L 96 04/11/20 06:00 71 96 04/11/20 05:30 72 92 04/11/20 05:15 71 111/71 94 04/11/20 05:00 70 93 04/11/20 04:30 70 92 04/11/20 04:14 71 112/71 98 04/11/20 04:00 36.5 C 68 97 04/11/20 03:30 66 94 04/11/20 03:15 100 H 95/57 L 97 04/11/20 03:00 66 97 04/11/20 02:30 60 95 04/11/20 02:18 63 90/57 L 93 04/11/20 02:15 90/57 L 93 04/11/20 02:00 63 96 04/11/20 01:30 62 95 04/11/20 01:14 62 92/57 L 94 04/11/20 01:00 60 95 Laboratory Results 04/11/20 04/11/20 04/11/20 Range/Units 11:10 09:48 07:20 WBC (4.8-10.8) K/uL RBC (4.7-6.1) M/uL Hgb (14.0-18.0) g/dL Hct (42-52) % MCV (80-100) fL MCH (25-34) pg MCHC (32-36) g/dL RDW Std Deviation (36.4-46.3) fL RDW Coeff of [place] (11.5-14.5) % Plt Count (130-400) K/uL MPV (7.4-10.4) fL APTT (21.0-31.0) Seconds PTT Ratio Sodium (136-145) mmol/L Potassium (3.5-5.1) mmol/L Chloride (98-107) mmol/L Carbon Dioxide (21-32) mmol/L Anion Gap (3-11) BUN (7-18) mg/dl Creatinine (0.6-1.4) mg/dl Est Cr Clr Drug Dosing ml/min Est GFR ( Amer) Est GFR (Non-Af Amer) BUN/Creatinine Ratio (10-20) Glucose (70-99) mg/dl POC Glucose 199 H 133 H (70-99) mg/dl Calcium (8.5-10.1) mg/dl Magnesium (1.8-2.4) mg/dl Total Bilirubin (0.2-1) mg/dl AST (15-37) U/L ALT (12-78) U/L Alkaline Phosphatase (45-117) U/L Troponin I 24.900 H* (0-0.045) ng/ml Total Protein (6.4-8.2) gm/dl Albumin (3.4-5.0) gm/dl Globulin (2.5-4.0) gm/dl Albumin/Globulin Ratio (0.9-2) 04/11/20 04/11/20 04/11/20 Range/Units 04:12 04:12 04:12 WBC 11.65 H (4.8-10.8) K/uL RBC 4.17 L (4.7-6.1) M/uL Hgb 12.8 L (14.0-18.0) g/dL Hct 38.4 L (42-52) % MCV 92.1 (80-100) fL MCH 30.7 (25-34) pg MCHC 33.3 (32-36) g/dL RDW Std Deviation 49.7 H (36.4-46.3) fL RDW Coeff of Tristan 14.6 H (11.5-14.5) % Plt Count 197 (130-400) K/uL MPV 10.4 (7.4-10.4) fL APTT 62.1 H* (21.0-31.0) Seconds PTT Ratio 2.2 Sodium 140 (136-145) mmol/L Potassium 3.5 (3.5-5.1) mmol/L Chloride 102 (98-107) mmol/L Carbon Dioxide 28 (21-32) mmol/L Anion Gap 10.0 (3-11) BUN 22 H (7-18) mg/dl Creatinine 1.71 H (0.6-1.4) mg/dl Est Cr Clr Drug Dosing 46.8 ml/min Est GFR ( Amer) 47.3 Est GFR (Non-Af Amer) 40.8 BUN/Creatinine Ratio 13.0 (10-20) Glucose 145 H (70-99) mg/dl POC Glucose (70-99) mg/dl Calcium 8.5 (8.5-10.1) mg/dl Magnesium 2.1 (1.8-2.4) mg/dl Total Bilirubin 0.9 (0.2-1) mg/dl AST 213 H (15-37) U/L ALT 52 (12-78) U/L Alkaline Phosphatase 42 L (45-117) U/L Troponin I 28.500 H* (0-0.045) ng/ml Total Protein 6.4 (6.4-8.2) gm/dl Albumin 2.9 L (3.4-5.0) gm/dl Globulin 3.5 (2.5-4.0) gm/dl Albumin/Globulin Ratio 0.8 L (0.9-2) 04/10/20 04/10/20 04/10/20 Range/Units 21:57 16:48 16:12 WBC (4.8-10.8) K/uL RBC (4.7-6.1) M/uL Hgb (14.0-18.0) g/dL Hct (42-52) % MCV (80-100) fL MCH (25-34) pg MCHC (32-36) g/dL RDW Std Deviation (36.4-46.3) fL RDW Coeff of Tristan (11.5-14.5) % Plt Count (130-400) K/uL MPV (7.4-10.4) fL APTT (21.0-31.0) Seconds PTT Ratio Sodium (136-145) mmol/L Potassium (3.5-5.1) mmol/L Chloride (98-107) mmol/L Carbon Dioxide (21-32) mmol/L Anion Gap (3-11) BUN (7-18) mg/dl Creatinine (0.6-1.4) mg/dl Est Cr Clr Drug Dosing ml/min Est GFR ( Amer) Est GFR (Non-Af Amer) BUN/Creatinine Ratio (10-20) Glucose (70-99) mg/dl POC Glucose 125 H 141 H (70-99) mg/dl Calcium (8.5-10.1) mg/dl Magnesium (1.8-2.4) mg/dl Total Bilirubin (0.2-1) mg/dl AST (15-37) U/L ALT (12-78) U/L Alkaline Phosphatase (45-117) U/L Troponin I 24.200 H* (0-0.045) ng/ml Total Protein (6.4-8.2) gm/dl Albumin (3.4-5.0) gm/dl Globulin (2.5-4.0) gm/dl Albumin/Globulin Ratio (0.9-2) /23/20 Range/Units 12:21 WBC (4.8-10.8) K/uL RBC (4.7-6.1) M/uL Hgb (14.0-18.0) g/dL Hct (42-52) % MCV (80-100) fL MCH (25-34) pg MCHC (32-36) g/dL RDW Std Deviation (36.4-46.3) fL RDW Coeff of Tristan (11.5-14.5) % Plt Count (130-400) K/uL MPV (7.4-10.4) fL APTT 62.6 H* (21.0-31.0) Seconds PTT Ratio 2.2 Sodium (136-145) mmol/L Potassium (3.5-5.1) mmol/L Chloride (98-107) mmol/L Carbon Dioxide (21-32) mmol/L Anion Gap (3-11) BUN (7-18) mg/dl Creatinine (0.6-1.4) mg/dl Est Cr Clr Drug Dosing ml/min Est GFR ( Amer) Est GFR (Non-Af Amer) BUN/Creatinine Ratio (10-20) Glucose (70-99) mg/dl POC Glucose (70-99) mg/dl Calcium (8.5-10.1) mg/dl Magnesium (1.8-2.4) mg/dl Total Bilirubin (0.2-1) mg/dl AST (15-37) U/L ALT (12-78) U/L Alkaline Phosphatase (45-117) U/L Troponin I (0-0.045) ng/ml Total Protein (6.4-8.2) gm/dl Albumin (3.4-5.0) gm/dl Globulin (2.5-4.0) gm/dl Albumin/Globulin Ratio (0.9-2) Coding Level of Care Code 12300 Subseq Hosp Care Lvl 3 Diagnoses Acute systolic (congestive) heart failure I50.21 Admitted to intensive care unit Z78.9 Respiratory failure J96.90 Stage III chronic kidney disease N18.3 Obstructive sleep apnea of adult G47.33 Ischemic cardiomyopathy I25.5 ICD (implantable cardioverter-defibrillator) in place Z95.810 Dyslipidemia E78.5
[2020-04-11] MEDS: HEPARIN SODIUM/DEXTROSE 25,000 UNITS/500 ML BAG IV SCH (13:39)
[2020-04-11] MEDS ORDERED: BUMETANIDE 1 MG TAB PO SCH (16:00)
[2020-04-11] MEDS ORDERED: HEPARIN DRIP~STOP ORDER ONE (23:14)
[2020-04-12 04:59] LABS: Basophils # (auto) 0.04 K/uL (0-0.2); Basophils % (auto) 0.4 %; Eosinophils % (auto) 1.9 %; Hematocrit (blood only) 39.7 % (42-52); Hemoglobin 12.7 g/dL (14.0-18.0); Immature Granulocytes # (auto) 0.06 K/uL (0.00-0.02); Immature Granulocytes % (auto) 0.6 %; Lymphocytes # (auto) 1.44 K/uL (1.2-3.4); Lymphocytes % (auto) 13.7 %; Mean Corpuscular Hemoglobin 29.7 pg (25-34); Mean Corpuscular Volume 92.8 fL (80-100); Mean Platelet Volume 10.5 fL (7.4-10.4); Monocytes # (auto) 1.48 K/uL (0.11-0.59); Monocytes % (auto) 14.1 %; Neutrophils # (auto) 7.31 K/uL (1.4-6.5); Neutrophils % (auto) 69.3 %; Platelet Count 220 K/uL (130-400); RDW Coefficient of Variation 14.5 % (11.5-14.5); RDW Standard Deviation 49.3 fL (36.4-46.3); Red Blood Count 4.28 M/uL (4.7-6.1); White Blood Count 10.53 K/uL (4.8-10.8)
[2020-04-12 05:19] LABS: Albumin Level 3.1 gm/dl (3.4-5.0); BUN Creatinine Ratio 13.8 (10-20); Calcium 8.9 mg/dl (8.5-10.1); Est GFR (African American) 41.7; Est GFR (Non-African American) 35.9; Magnesium 2.1 mg/dl (1.8-2.4); Potassium 3.8 mmol/L (3.5-5.1)
[2020-04-12] MEDS: OXYCODONE HCL IR 5 MG TAB (IMMEDIATE RELEASE) PO PRN ×2 (05:19→19:53)
[2020-04-12 05:21] LABS: Albumin Globulin Ratio 0.8 (0.9-2); Bilirubin,Total 0.7 mg/dl (0.2-1); Total Protein 7.1 gm/dl (6.4-8.2)
[2020-04-12] MEDS: INSULIN ASPART 100 UNITS/ML 3 ML PEN SC SCH ×4 (08:51→20:55)
[2020-04-12] MEDS: FLUTICASONE PROPIONATE NA SPR 16 GM BTL NAE SCH (08:52)
[2020-04-12] MEDS: BUMETANIDE 1 MG TAB PO SCH (08:52)
[2020-04-12] MEDS: AMIODARONE 200 MG TAB PO SCH (08:53)
[2020-04-12] MEDS: PANTOprazole 40 MG TAB PO SCH (08:53)
[2020-04-12] MEDS: CLOPIDOGREL BISULFATE 75 MG TAB PO SCH (08:53)
[2020-04-12] MEDS: CHOLECALCIFEROL 1,000 UNITS 25 MCG TAB PO SCH (08:53)
[2020-04-12] MEDS: MEXILETINE HCL 150 MG CAPSULE PO SCH ×2 (08:53→20:00)
[2020-04-12] MEDS: ISOSORBIDE MONO EXTENDED REL 30 MG TABCR PO SCH (08:53)
[2020-04-12] MEDS: ASPIRIN 81 MG ECTAB PO SCH (08:53)
[2020-04-12] MEDS: carvediloL 25 MG TAB PO SCH ×2 (08:54→20:00)
--- NOTE | 2020-04-12 10:39 | Cardiology Progress Note ---
Date of Service April 12, 2020 Subjective He denies any chest pain or chest pressure.He denies any lightheadedness or dizziness. His shoulder discomfort has resolved. He describes receiving a pill (Oxycodone) for which allowed his shoulder discomfort to resolve which Has been his anginal equivalent. He denies any lower extremity edema and feels back to his baseline. He wants to know when he can go home. The rest of a complete review of systems is negative Cardiac catheterization at [facility] which revealed a 50% ostial left main lesion, 70% distal left main lesion, ostial 60% LAD lesion, 40% mid LAD lesion and a 60-70% D1 lesion. --- turned down for surgical intervention at [facility]. He is awake alert oriented x3 he is in no acute distress HEENT: Severely reduced carotid upstrokes no evidence of carotid bruits his jugular venous pressure appeared mildly elevated Lungs: Globally Decreased breath sounds Heart: Regular rate and rhythm (paced) no appreciable murmurs Abdomen soft nontender nondistended positive bowel sounds extremities no clubbing cyanosis or edema psychiatric his affect appeared appropriate Neurologic he is awake alert and oriented and moving all extremities EKG AV sequential pacemaker trop 28 IMPRESSION: 1A. Acute on chronic systolic heart failure with respiratory failure likely secondary to diastolic heart failure from coronary ischemia 1B. 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 2. Severe left main disease and proximal LAD disease not a candidate for surgical intervention, turned down by CT surgery at [facility]. 3. Severe mitral regurgitation. 4. Status post biventricular defibrillator. 5. Chronic systolic heart failure. 6. Chronic kidney disease stage III. 7. Use of amiodarone and mexiletine For VT storm 8. Bilateral renal masses, most consistent with renal cell carcinoma, turned down for surgery by urology both at [facility] and [facility]. 9. Chronic angina 10. Non-ST elevation myocardial infarction His troponin continues to rise. Likely his episode this admission and his episode 3 weeks ago was related to coronary ischemia leading to diastolic dysfunction and acute heart failure. He was turned down by CT surgery at [facility]. He is not an interventional cardiology candidate given his proximal and distal left main disease and proximal LAD disease. With his severe LV dysfunction and severe MR he would not survive the procedure even with the use of an Impella device. I would continue with medical therapy. The oxycodone has helped his shoulder discomfort tremendously. He is tolerating aspirin and Plavix. His Coreg was held this morning due to a relatively low blood pressure. He will live with a blood pressure in the 90s and be asymptomatic. If his blood pressure stable he can receive his morning dose later today. I would have him ambulate in the hallway. Hopefully he can be discharged tomorrow. He had a number of questions with regards to DNR status. He notes if his heart stops he wants to be a DNR/DNI. But if he is awake he wants everything possibly done to improve his chances of survival. Results & Data Vital Signs (Past 12 Hours) Vital Signs Temp Resp BP Pulse Ox Pulse Ox 04/12/20 09:00 92 04/12/20 07:16 36.5 C 19 96/60 L 96
--- NOTE | 2020-04-12 17:39 | Hospitalist Progress Note ---
Date of Service April 12, 2020 Assessment & Plan (1) NSTEMI (non-ST elevated myocardial infarction): Patient started complaining of right shoulder pain while he was on the ventilator on the night of 04/09. ECG obtained which showed AV-paced rhythm with possible ST elevation in the precordial anterior leads, serial troponin did trend upward to 28 and then trended back downward. - Continue ASA, Plavix, beta-juanito, and Imdur - Not amenable to cath or bypass -> Will have to treat medically at this point. (2) Acute systolic (congestive) heart failure: With acute on chronic systolic CHF-severe. - Has had multiple hospitalization for CHF including ventilator dependent respiratory failure. - His weight was not up significantly from previous although he is having cardiac cachexia likely as per Cardio and has lost muscle mass. - With pulmonary edema secondary to NSTEMI and diastolic dysfunction. - Cardiology consult appreciated - not a candidate for any surgery for his severe CAD, has end-stage CAD with cardiac cachexia - Last echo Dec 2019 with EF of 15-20%. - Continue Bumex 2 mg p.o. twice daily for today and then once daily starting tomorrow. - Follow electrolytes - Continue amiodarone and mexiletine, isosorbide and carvedilol, but will reduce carvedilol dosing to 25 mg p.o. twice daily for hypotension - Continue Asa - Hold ACEi given low BP (3) Respiratory failure: Acute respiratory failure with hypoxia and hypercarbia secondary to acute on chronic systolic CHF and NSTEMI-intubated [facility] at OSH and now improved. - Extubated on AM of 04/10 to NC 4-5 L. Now on room air. - Given his severe coronary artery disease and cardiomyopathy, is highly likely that this will occur again. Had a lengthy discussion with patient regarding goals of care and he is unsure whether he would want to be intubated again in the future for similar presentation. He is clear that he no longer wants any CPR if he has cardiac arrest and he was changed to a DNR. (4) Ischemic cardiomyopathy: As noted above. - ICD in place (5) Hypertension: As outpatient, on beta-juanito and isosorbide, but was requiring vasopressor support upon admission and these were held. - Now off Levophed and pressures low at times which is likely due to his very poor EF - Decreased dose of carvedilol to 25 mg p.o. twice daily as above, and continue isosorbide - Continues on Bumex (6) COPD (chronic obstructive pulmonary disease): Not on inhalers as outpatient. Presently without shortness of breath. - Consider formal PFTs as outpatient (7) Obstructive sleep apnea of adult: - Continue CPAP HS and with naps now that he is extubated (8) Diabetes mellitus, type 2: Last A1C = 7.3 on 01/17/20. - Hold glimeperide, and continue with insulin protocol as per ICU - Sliding scale insulin (9) Stage III chronic kidney disease: Baseline Cr 1.6-1.8. -With acute kidney injury here with creatinine of 2.0 at outside hospital-was improving here down to 1.47 which is his baseline, but now back up to 1.7 with continued IV diuretics. - Hx of renal mass thought to be malignancy but pt is not a surgical candidate due to medical comorbidities. - Renally dose medications, avoid nephrotoxins - Convert to p.o. Bumex as above - Trend BMP with am labs (10) History of ventricular tachycardia: With a history of ventricular tachycardia storm. Having frequent PVCs here. - Continue mexiletine and amiodarone - Follow on telemetry (11) DVT prophylaxis: TEDs GI prophylaxis-PPI CODE: DNR, however patient reports that he is undecided about repeat intubation if has recurrent severe pulmonary edema Admission and Anticipated Discharge Date Admission Date: April 09, 2020 Subjective Doing well today. He has had no further chest pain. He has had some right shoulder pain which the oxycodone improved/resolved. None this morning. Reports no fevers/chills, chest pain, shortness of breath, abdominal pain, nausea, or vomiting. Physical Exam Constitutional: WD/WN, vitals as above Eyes: EOM intact bilaterally; no conjunctival abnormality ENMT: external ear and nose normal, oropharynx normal Neck: trachea midline, no thyromegaly normal visual inspection Respiratory: normal respiratory effort, lungs clear to auscultation no respiratory distress Cardiovascular: RRR, no murmur, no edema Gastrointestinal (Abdomen): Inspection/Auscultation: abdomen normal to inspection; abdomen not distended Musculoskeletal: no cyanosis or clubbing, extremities motor strength 5/5 Skin: no rashes, warm and dry Neurologic: moves all extremities and awake Psychiatric: Orientation: alert, oriented to person and cooperative Results & Data Results & Data ([facility]) Vital Signs (Past 12 Hours) Vital Signs Temp Pulse Pulse Resp BP BP Pulse Ox 04/12/20 15:48 36.8 C 74 17 99/63 L 94 04/12/20 14:32 36.6 C 77 16 106/70 94 04/12/20 11:15 36.6 C 65 91/54 L 95 04/12/20 09:00 04/12/20 08:46 36.6 C 73 90/52 L 87 L 04/12/20 07:16 36.5 C 19 96/60 L 96 Pulse Ox 04/12/20 15:48 04/12/20 14:32 04/12/20 11:15 04/12/20 09:00 92 04/12/20 08:46 04/12/20 07:16 PG Care Time/CCT Total # of Minutes Spent Total Time Spent with Patient: Total time spent is greater than 50% in coordination of care (as documented) at patient's floor/unit and/or counseling patient: Coding Level of Care Code 90123 Subseq Hosp Care Lvl 3 Diagnoses NSTEMI (non-ST elevated myocardial infarction) I21.4 Acute systolic (congestive) heart failure I50.21 Respiratory failure J96.90 Ischemic cardiomyopathy I25.5 Hypertension I10 Hypertension type: essential hypertension COPD (chronic obstructive pulmonary disease) J44.9 Obstructive sleep apnea of adult G47.33 Diabetes mellitus, type 2 E11.9 Stage III chronic kidney disease N18.3 History of ventricular tachycardia Z86.79 DVT prophylaxis Z29.9 (1) Hypertension Hypertension type: essential hypertension Qualified Code(s): I10 - Essential (primary) hypertension
[2020-04-12] MEDS: ACETAMINOPHEN 325 MG TAB PO PRN (22:21)
[2020-04-13] MEDS: BUMETANIDE 1 MG TAB PO SCH (07:40)
[2020-04-13] MEDS: MEXILETINE HCL 150 MG CAPSULE PO SCH (07:40)
[2020-04-13 07:41] LABS: Hematocrit (blood only) 36.7 % (42-52); Hemoglobin 11.8 g/dL (14.0-18.0); Mean Corpuscular Hemoglobin 29.5 pg (25-34); Mean Corpuscular Hgb Conc 32.2 g/dL (32-36); Mean Corpuscular Volume 91.8 fL (80-100); Mean Platelet Volume 10.5 fL (7.4-10.4); Platelet Count 223 K/uL (130-400); RDW Coefficient of Variation 14.3 % (11.5-14.5); RDW Standard Deviation 48.5 fL (36.4-46.3); White Blood Count 8.41 K/uL (4.8-10.8)
[2020-04-13] MEDS: CHOLECALCIFEROL 1,000 UNITS 25 MCG TAB PO SCH (07:41)
[2020-04-13] MEDS: CLOPIDOGREL BISULFATE 75 MG TAB PO SCH (07:41)
[2020-04-13] MEDS: ISOSORBIDE MONO EXTENDED REL 30 MG TABCR PO SCH (07:41)
[2020-04-13] MEDS: ASPIRIN 81 MG ECTAB PO SCH (07:42)
[2020-04-13] MEDS: PANTOprazole 40 MG TAB PO SCH (07:42)
[2020-04-13] MEDS: AMIODARONE 200 MG TAB PO SCH (07:43)
[2020-04-13] MEDS: carvediloL 25 MG TAB PO SCH (07:43)
[2020-04-13] MEDS: INSULIN ASPART 100 UNITS/ML 3 ML PEN SC SCH ×2 (07:45→12:58)
[2020-04-13] MEDS: FLUTICASONE PROPIONATE NA SPR 16 GM BTL NAE SCH (07:45)
[2020-04-13 08:07] LABS: BUN Creatinine Ratio 18.3 (10-20); Calcium 9.5 mg/dl (8.5-10.1); Creatinine Clr Calc Pharmacy 53.3 ml/min; Est GFR (African American) 55.9; Est GFR (Non-African American) 48.2; Magnesium 2.1 mg/dl (1.8-2.4); Potassium 3.5 mmol/L (3.5-5.1)
[2020-04-13 08:08] LABS: Phosphorus 3.4 mg/dl (2.5-4.9)
--- NOTE | 2020-04-13 10:20 | Palliative Care Consultation ---
Date of Consultation April 13, 2020 Assessment & Plan (1) Goals of care, counseling/discussion: -64 year old male patient with PMH asthma, COPD on home O2, CAD with CHF, ischemic cardiomyopathy with EF of 1520 % on echo December 2019, biventricular AICD, CKD stage III, reported renal mass, and others, presented to the ED from [place] ED four days ago with c/o acute respiratory failure. At [place], patient found to have sever epulmonary edema vs. infection on CXR, BNP 7000, WBCs 14k, creatinine 2.0. He was acidotic on ABG. Patient was given 80mg Lasix in their ED, was transferred to our facility, intubated, and admitted to ICU. Patient was admitted to our facility from 03/23-03/25 for respiratory failure requiring intubation as well, COVID testing negative at that time. He followed up with heart failure clinic as an outpatient. Later that evening, patient was c/o chest pain 03/28. EKG and troponin obtained. Trop negative, EKG showed ST segment changes. Patient then stated chest pain subsided. ASA and heparin gtt started. Cardiology consulted. Troponin did trend up, patient had NSTEMI. Cardiology notes that patient also has this renal mass that is inoperable and is concerning for malignancy. Patient also had cardiac cath previously at [facility] which reveal multi-vessel disease, but patient is turned down for cardiac surgery at [facility]. Patient has lost a lot of weight over the last year apparently. His prognosis is poor. Patient was extubated on 04/10. Several physicians have discussed goals of care and code status with patient. He states in the event of cardiac arrest, he would not want CPR, but otherwise he wants FULL TREATMENT. He is uncertain about further intubation. Palliative care is consulted to discuss goals of care. -Case management notes reviewed. CM spoke with patient's , Patsy. She states patient lives at home with her. Uses home oxygen and a cane to ambulate. Patsy states that patient previously wanted to be DNR, and she would also like this clarified so she knows what to tell EMS. Patient would benefit from POLST form if he in fact does want to be DNR. -Based on what patient has told the verification lead, that he still wants full treatment, doubt he is ready for hospice care. Although, he would certainly qualify with his end-stage CHF and chronic respiratory failure on home oxygen. -Patient to be seen by palliative MD this afternoon. Will discuss goals of care. Further recommendations to follow. (2) NSTEMI (non-ST elevated myocardial infarction): (3) Acute systolic (congestive) heart failure: (4) Respiratory failure: Supervising Physician Co-Signing Physician Notes Chart reviewed, patient seen and examined. Collaborated with ARIANA Addison as well as attending physician Dr. Borden. Patient known to our service from prior admissions. PE: Patient awake and alert, dressing himself getting ready for discharge, no acute distress HEENT: EOMI, hearing within normal limits Respirations: Unlabored, on room air, few crackles left base CV: Regular rate, trace lower extremity edema Abdomen: Soft, nontender Neuro: Alert and oriented x4 Patient has his prior completed POLST form at bedside -patient states he has his wishes and affairs in order. Agree with above note, assessment and plan as per ARIANA Addison History of Present Illness Attending Physician: Flo Borden MD History of Present Illness This 64 year old male patient with PMH asthma, COPD on home O2, CAD with CHF, ischemic cardiomyopathy with EF of 1520 % on echo December 2019, biventricular AICD, CKD stage III, reported renal mass, and others, presented to the ED from [place] ED four days ago with c/o acute respiratory failure. At [place], patient found to have sever epulmonary edema vs. infection on CXR, BNP 7000, WBCs 14k, creatinine 2.0. He was acidotic on ABG. Patient was given 80mg Lasix in their ED, was transferred to our facility, intubated, and admitted to ICU. Patient was admitted to our facility from 03/23-03/25 for respiratory failure requiring intubation as well, COVID testing negative at that time. He followed up with heart failure clinic as an outpatient. Later that evening, patient was c/o chest pain 03/28. EKG and troponin obtained. Trop negative, EKG showed ST segment changes. Patient then stated chest pain subsided. ASA and heparin gtt started. Cardiology consulted. Troponin did trend up, patient had NSTEMI. Cardiology notes that patient also has this renal mass that is inoperable and is concerning for malignancy. Patient also had cardiac cath previously at [facility] which reveal multi-vessel disease, but patient is turned down for cardiac surgery at [facility]. Patient has lost a lot of weight over the last year apparently. His prognosis is poor. Patient was extubated on 04/10. Several physicians have discussed goals of care and code status with patient. He states in the event of cardiac arrest, he would not want CPR, but otherwise he wants FULL TREATMENT. He is uncertain about further intubation. Palliative care is consulted to discuss goals of care. Thank you kindly for this consult. Palliative care team will follow as needed. Allergies Allergy/AdvReac Type Severity Reaction Status Date / Time budesonide Allergy Unknown TACHYCARDIA, Verified 01/23/20 14:54 SOB carbamazepine Allergy Unknown TACHYCARDIA, Verified 01/23/20 14:54 PANIC ATTACK cyclobenzaprine Allergy Unknown UNK Verified 01/23/20 14:54 doxycycline Allergy Unknown ABD PAIN Verified 01/23/20 14:54 fluticasone Allergy Unknown UNK Verified 01/23/20 14:54 formoterol Allergy Unknown TACHYCARDIA, Verified 01/23/20 14:54 SOB salmeterol Allergy Unknown ANAPHYLAXIS Verified 01/23/20 14:54 morphine Allergy Unknown Verified 01/23/20 14:54 tiotropium Allergy Unknown Verified 01/23/20 14:54 [From Spiriva with HandiHaler] digoxin AdvReac Unknown BACK AND Verified 01/23/20 14:54 STOMACH PAIN metformin AdvReac Unknown MUSCLE Verified 01/23/20 14:54 ACHES IN BVACK AND KIDNEYS Sodium Propionate Allergy Unknown SHORTNESS Uncoded 01/23/20 14:54 OF BREATH Home Medications Home Medications Medication Instructions Recorded Confirmed Type amiodarone 200 mg PO DAILY 07/22/19 03/31/20 History aspirin [Ecotrin Low Strength] 81 mg PO DAILY 07/22/19 03/31/20 History nitroglycerin 0.4 mg SUBLINGUAL Q5M PRN 07/22/19 03/31/20 History cholecalciferol (vitamin D3) 25 2,000 units PO DAILY tab 11/05/19 03/31/20 History mcg (1,000 unit) tablet coenzyme Q10 100 mg capsule 200 mg PO DAILY cap 11/05/19 03/31/20 History fluticasone propionate 50 2 sprays INTRANASAL DAILY ml 11/05/19 03/31/20 History mcg/actuation nasal spray,suspension isosorbide mononitrate 30 mg 30 mg PO QAM #90 tab 11/05/19 03/31/20 Rx tablet,extended release 24 hr mexiletine 150 mg capsule 150 mg PO BID #180 cap 11/05/19 03/31/20 Rx nystatin 100,000 unit/gram topical 1 appln TOP BID #15 gm 11/05/19 03/23/20 Rx cream triamcinolone acetonide 0.1 % 1 appln TOP TID 11/05/19 03/23/20 History topical cream Bifidobacterium infantis See Rx Instructions PO DAILY 01/21/20 03/31/20 History psyllium 1 tbs PO TID gm 01/23/20 03/31/20 History tramadol 50 mg tablet 50 mg PO Q6H PRN #30 tab 01/23/20 03/31/20 Rx ammonium lactate 12 % lotion 1 appln TOP DAILY PRN #227 gm 02/25/20 Rx metolazone 2.5 mg PO DAILY PRN #10 tab 03/25/20 03/31/20 Rx potassium chloride 20 meq PO DAILY PRN #10 tab 03/25/20 03/31/20 Rx blood sugar diagnostic #100 ea 04/08/20 Rx glimepiride 2 mg tablet 2 mg PO DAILY #90 tab 04/08/20 Rx bumetanide 2 mg PO QAM #60 tab 04/13/20 Rx carvedilol 25 mg PO BID #540 tab 04/13/20 Rx clopidogrel 75 mg PO QAM@0800 #30 tab 04/13/20 Rx oxycodone 5 mg PO BID PRN #20 tab 04/13/20 Rx pantoprazole 40 mg PO QAM #30 tab 04/13/20 Rx Patient History Medical History Afib (Chronic) Allergic rhinitis (Acute) Asthma (Acute) Cervical radiculopathy (Acute) Chronic systolic heart failure COPD (chronic obstructive pulmonary disease) Coronary artery disease Degenerative cervical disc Diabetes mellitus, type 2 Dyslipidemia Hepatitis C History of ventricular tachycardia Hypertension Impotence, organic Ischemic cardiomyopathy EF 20% December 2019 Nephrolithiasis Obesity Obstructive sleep apnea of adult Osteoarthritis Peripheral neuropathy Renal mass Respiratory failure (03/23/20) Stage III chronic kidney disease Vitamin D deficiency (Chronic) Surgical History History of coronary artery stent placement ICD (implantable cardioverter-defibrillator) in place (07/2017) [facility] biventricular ICD Family History Unknown Cardiac disorder Hypertension Diabetes Father Myocardial infarction Mother Myocardial infarction Denies family history of Ovarian cancer Prostate cancer Breast cancer Colorectal cancer Social History Preferred Language: Tamaz[place] Communication Ability: Unable Visual Impairment: No Limitations Hearing Ability: Normal Binder Caser Required: No Beliefs That Will Affect Care: None marital status: Current Living Situation: Spouse Current Living Situation Comment: with & son current occupational status: retired Feels Safe at Home: Yes Smoking Status: Unknown if ever smoked caffeine: No Dental Care, Regularly: No Physical Activity Frequency: 5-6 Times per Week Physical Activity Frequency Comment: walking Seatbelt Use: always Sunscreen Use: No Results & Data Vital Signs (Past 12 Hours) Vital Signs Temp Pulse Pulse Resp BP BP Pulse Ox 04/13/20 07:14 36.7 C 73 20 104/66 95 04/13/20 03:11 36.5 C 60 17 101/62 96 04/12/20 22:50 37.1 C 74 19 96/61 L 92 04/12/20 22:20 74 Coding Level of Care Code 81218 Inpt Consult Level 2 Diagnoses Goals of care, counseling/discussion Z71.89 NSTEMI (non-ST elevated myocardial infarction) I21.4 Acute systolic (congestive) heart failure I50.21 Respiratory failure J96.90 Time Spent (min) 50 Time Spent Midlevel A total of 50 minutes spent by this EPIC WILLOW ANALYST in reviewing chart, speaking with physicians and IDT regarding patient's condition, goals and plan of care.
--- NOTE | 2020-04-13 17:40 | Discharge Summary ---
Date of Service April 13, 2020 Admission HPI Per Admitting Provider This is a 64-year-old male with PMHx including asthma/COPD on home O2, CAD with CHF, ischemic cardiomyopathy, EF of 1520 % on echo December 2019, biventricular AICD in place, previous COVID-19 testing completed during last admission was negative. During previous admission from 03/23 to 03/25/2020, he required intubation due to acute respiratory failure thought to be due to acute on chronic systolic CHF. He was extubated successfully and did well after being diuresed. He represents today from [facility] with acute respiratory failure, has already been intubated, repeat COVID testing is in process, and has been accepted into our ICU for further management. At [facility], he was found to have a CXR consistent with severe pulm edema vs infection, proBNP 7000, leukocytosis of 14k, and informix developer 2.0. ABG was 7.1 /105. He was given a dose of Lasix 80 mg IV x1 prior to arrival here. Upon admission, he is sedated and intubated, is in no acute distress. He is unable to provide any further history. Principal Diagnosis Heart failure and NSTEMI Discharge Exam Constitutional WD/WN, vitals as above Eyes EOM intact bilaterally; no conjunctival abnormality ENMT external ear and nose normal, oropharynx normal Neck trachea midline, no thyromegaly normal visual inspection Respiratory normal respiratory effort, lungs clear to auscultation no respiratory distress Cardiovascular RRR, no murmur, no edema Gastrointestinal (Abdomen) Inspection/Auscultation: abdomen normal to inspection; abdomen not distended Musculoskeletal no cyanosis or clubbing, extremities motor strength 5/5 Skin no rashes, warm and dry Neurologic moves all extremities and awake Psychiatric Orientation: alert, oriented to person and cooperative Discharge Data Allergies Allergy/AdvReac Type Severity Reaction Status Date / Time budesonide Allergy Unknown TACHYCARDIA, Verified 01/23/20 14:54 SOB carbamazepine Allergy Unknown TACHYCARDIA, Verified 01/23/20 14:54 PANIC ATTACK cyclobenzaprine Allergy Unknown UNK Verified 01/23/20 14:54 doxycycline Allergy Unknown ABD PAIN Verified 01/23/20 14:54 fluticasone Allergy Unknown UNK Verified 01/23/20 14:54 formoterol Allergy Unknown TACHYCARDIA, Verified 01/23/20 14:54 SOB salmeterol Allergy Unknown ANAPHYLAXIS Verified 01/23/20 14:54 morphine Allergy Unknown Verified 01/23/20 14:54 tiotropium Allergy Unknown Verified 01/23/20 14:54 [From Spiriva with HandiHaler] digoxin AdvReac Unknown BACK AND Verified 01/23/20 14:54 STOMACH PAIN metformin AdvReac Unknown MUSCLE Verified 01/23/20 14:54 ACHES IN BVACK AND KIDNEYS Sodium Propionate Allergy Unknown SHORTNESS Uncoded 01/23/20 14:54 OF BREATH Consultations 04/09/20 09:36 Consult Outbound Sales Representative Routine 04/09/20 09:37 Consult Case Management - Discharge Planning Routine 04/10/20 07:10 Consult Cardiology Routine 04/10/20 19:43 Consult Palliative Care Routine Hospital Course (1) NSTEMI (non-ST elevated myocardial infarction): Patient started complaining of right shoulder pain while he was on the ventilator on the night of 04/09. ECG obtained which showed AV-paced rhythm with possible ST elevation in the precordial anterior leads, serial troponin did trend upward to 28 and then trended back downward. - Continue ASA, Plavix, beta-juanito, and Imdur - Not amenable to cath or bypass -> Will have to treat medically at this point. (2) Acute systolic (congestive) heart failure: With acute on chronic systolic CHF-severe. - Has had multiple hospitalization for CHF including ventilator dependent respiratory failure. - His weight was not up significantly from previous although he is having cardiac cachexia likely as per Cardio and has lost muscle mass. - With pulmonary edema secondary to NSTEMI and diastolic dysfunction. - Cardiology consult appreciated - not a candidate for any surgery for his severe CAD, has end-stage CAD with cardiac cachexia - Last echo Dec 2019 with EF of 15-20%. - Continue Bumex 2 mg p.o. daily. - Continue amiodarone and mexiletine, isosorbide and carvedilol, but will reduce carvedilol dosing to 25 mg p.o. twice daily for hypotension - Continue ASA - Hold ACEi given low BP (3) Respiratory failure: Acute respiratory failure with hypoxia and hypercarbia secondary to acute on chronic systolic CHF and NSTEMI-intubated PHYSICIAN/INTERNIST at [facility] and now improved. - Extubated on AM of 04/10 to NC 4-5 L. Now on room air. - Given his severe coronary artery disease and cardiomyopathy, is highly likely that this will occur again. Had a lengthy discussion with patient regarding goals of care and he is unsure whether he would want to be intubated again in the future for similar presentation. He is clear that he no longer wants any CPR if he has cardiac arrest and he was changed to a DNR. (4) Ischemic cardiomyopathy: As noted above. - ICD in place (5) Hypertension: As outpatient, on beta-juanito and isosorbide, but was requiring vasopressor support upon admission and these were held. - Decreased dose of carvedilol to 25 mg p.o. twice daily as above, and continue isosorbide - Continues on Bumex (6) COPD (chronic obstructive pulmonary disease): Not on inhalers as outpatient. Presently without shortness of breath. - Consider formal PFTs as outpatient (7) Obstructive sleep apnea of adult: - Continue CPAP HS and with naps now that he is extubated (8) Diabetes mellitus, type 2: Last A1C = 7.3 on 01/17/20. - Hold glimeperide, and continue with insulin protocol as per ICU - Sliding scale insulin (9) Stage III chronic kidney disease: Baseline Cr 1.6-1.8. -With acute kidney injury here with creatinine of 2.0 at outside hospital-was improving here down to 1.47 which is his baseline, but now back up to 1.7 with continued IV diuretics. - Hx of renal mass thought to be malignancy but pt is not a surgical candidate due to medical comorbidities. - Renally dose medications, avoid nephrotoxins - Convert to p.o. Bumex as above (10) History of ventricular tachycardia: With a history of ventricular tachycardia storm. Having frequent PVCs here. - Continue mexiletine and amiodarone - Follow on telemetry (11) DVT prophylaxis: TEDs GI prophylaxis-PPI CODE: DNR, however patient reports that he is undecided about repeat intubation if has recurrent severe pulmonary edema Total Time Total Time Spent Total Time Spent (In Minutes): 35 Discharge Plan Discharge Items Patient Disposition: Home - Self-Care Reason For Visit: ACUTE RESP FAILURE, ?COVID Discharge Diagnosis: Heart attack (NSTEMI) & heart failure Activity: Resume your previous activity Non-emergency contact: Primary Care Provider and Contract Designer Call non-emergency contact if: your symptoms worsen Follow-up/Referrals: Francois Hagan MD [Physician] - (Please see Dr. Hagan and Monique Hi in their clinics in 1-2 weeks for follow up.) Camelia Barclay DO [Primary Care Provider] - Monique Hi PA-C [Physician Gum Machine Operator] - 04/15/20 10:00 am (Congestive Heart Failure Program Appointment Information Early follow up is essential to managing your heart failure. An appointment has been scheduled for you with the [facility] Heart Failure Program within 7 days of discharge. Anticipate this visit to be 30-60 minutes long. Please expect a concrete plant laborer phone call from one of our nurses approximately 48 hours from discharge. They will also be placing an order for lab work to be completed 1-2 days prior to your heart failure follow up appointment. Please be sure to have this done so we can go over the results when you come in. Office Location The cardiology office building is located in front of the hospital at [address] [facility]. Bring the following with you to your follow-up doctor appointments: Please bring your daily weight log any discharge paperwork all of your medication bottles with you to this visit. ) Diet: Heart Healthy and Low Sodium (2gm) Addtl Attending Provider Instructions: You were admitted to the hospital with heart failure that caused you to stop breathing on your own. You required intubation (a breathing tube) and we were able to get the extra fluid out of your lungs. You also had a heart attack while in the hospital. As discussed with the cardiologists, you are not able to get a heart catheterization or a bypass surgery for the blockages in the heart because of their location and severity. This means we must manage with medications as best as we are able. Please follow up with Dr. Hagan and Monique Hi in their clinics this week to help keep your heart in the best possible shape and prevent further CHF exacerbations. We made a few medication changes on discharge: 1) We added Plavix (clopidogrel) to your regimen. This is once a day and helps blood flow through the blood vessels in your heart. 2) We lowered your carvedilol to 2 tablets instead of 3 which will help your blood pressure remain a bit higher. 3) We added pantoprazole which helps block stomach acid and will keep your stomach from getting an ulcer. 4) We increased your Bumex to 2mg every day (2 tablets instead of 1) which will help keep fluid off. Please weigh yourself every day. Your weight here today is 199 lbs. If you start to gain weight from this weight, it may mean you are building up fluid and would need to adjust your Bumex (water pill) dosing. If you see your weight changing, you should call Monique Hi or Dr. Hagan's office right away. If you don't hear from them the same day, call again as touching base with them might prevent you from having to go to the hospital and might even save your life. Pending Studies at Discharge: No Stand-Alone Forms: My [facility], Smoking Cessation Medications and DC Order Prescriptions: New clopidogrel 75 mg Tablet 75 mg PO QAM@0800 Qty: 30 RF: 0 pantoprazole 40 mg Tablet,Delayed Release (Dr/Ec) 40 mg PO QAM Qty: 30 RF: 0 oxycodone 5 mg tablet 5 mg PO BID PRN (Reason: pain) Qty: 20 RF: 0 Continued ammonium lactate 12 % lotion 1 appln TOP DAILY PRN (Reason: dry skin) Qty: 227 RF: 1 (DME) blood sugar diagnostic [OneTouch Ultra Blue Test Strip] Strip See Rx Instructions .ROUTE .MEDSUPPLY Qty: 100 RF: 1 glimepiride 2 mg tablet 2 mg PO DAILY Qty: 90 RF: 1 triamcinolone acetonide 0.1 % cream 1 appln TOP TID RF: 0 mexiletine 150 mg capsule 150 mg PO BID Qty: 180 RF: 1 isosorbide mononitrate 30 mg tablet extended release 24 hr 30 mg PO QAM Qty: 90 RF: 1 nystatin 100,000 unit/gram cream 1 appln TOP BID Qty: 15 RF: 1 Bifidobacterium infantis See Rx Instructions PO DAILY RF: 0 Fiber Smooth Powder 1 tbs PO TID RF: 0 tramadol 50 mg tablet 50 mg PO Q6H PRN (Reason: pain) Qty: 30 RF: 0 amiodarone 200 mg tablet 200 mg PO DAILY RF: 0 nitroglycerin 0.4 mg tablet, sublingual 0.4 mg sublingual Q5M PRN (Reason: Chest Pain) RF: 0 aspirin [Ecotrin Low Strength] 81 mg Tablet,Delayed Release (Dr/Ec) 81 mg PO DAILY RF: 0 cholecalciferol (vitamin D3) 25 mcg (1,000 unit) tablet 2,000 units PO DAILY RF: 0 fluticasone propionate 50 mcg/actuation spray,suspension 2 sprays intranasal DAILY RF: 0 coenzyme Q10 100 mg capsule 200 mg PO DAILY RF: 0 metolazone 2.5 mg tablet 2.5 mg PO DAILY PRN (Reason: weight gain to 207 lbs) Qty: 10 RF: 0 potassium chloride 20 mEq tablet extended release 20 meq PO DAILY PRN (Reason: only to be taken with metoloazone) Qty: 10 RF: 0 Changed carvedilol 12.5 mg tablet 25 mg PO BID Qty: 540 RF: 1 bumetanide 1 mg tablet 2 mg PO QAM Qty: 60 RF: 1 Discharge Orders: Discharge Order (Routine); Ordered 04/13/20 Ordered By: Flo Borden Admission Data Admit Date/Time: 04/09/20 13:34 Attending Provider: Flo Borden Admit Provider: Mayte Magana Primary Care Provider: Camelia Barclay Other Providers: George Acosta ; Cristian Jose ; Aylin Montelongo Other Interventions: Discharge Summary Assessment (RN) Last Done: 04/13/20 13:15 DC Date/Time DO NOT enter until pt leaves facility: 04/13/20 14:24 Coding Level of Care Code D/C Day Management >30 mins Diagnoses NSTEMI (non-ST elevated myocardial infarction) I21.4 Acute systolic (congestive) heart failure I50.21 Respiratory failure J96.90 Ischemic cardiomyopathy I25.5 Hypertension I10 Hypertension type: essential hypertension COPD (chronic obstructive pulmonary disease) J44.9 Obstructive sleep apnea of adult G47.33 Diabetes mellitus, type 2 E11.9 Stage III chronic kidney disease N18.3 History of ventricular tachycardia Z86.79 DVT prophylaxis Z29.9
== END 2020-04-13 14:24 | disposition home or self-care (01) | DRG 208 ==
LOC: 1E 13:34 → SUATTDRO 13:34 → 2W 04-12 13:19
DX: J44.9 Chronic obstructive pulmonary disease, unspecified; E11.42 Type 2 diabetes mellitus with diabetic polyneuropathy; Z51.81 Encounter for therapeutic drug level monitoring; I50.23 Acute on chronic systolic (congestive) heart failure; I25.119 Atherosclerotic heart disease of native coronary artery with unspecified angina pectoris; Z82.49 Family history of ischemic heart disease and other diseases of the circulatory system; I42.7 Cardiomyopathy due to drug and external agent; E11.22 Type 2 diabetes mellitus with diabetic chronic kidney disease; I25.5 Ischemic cardiomyopathy; Z79.51 Long term (current) use of inhaled steroids; E55.9 Vitamin D deficiency, unspecified; Z66 Do not resuscitate; I21.4 Non-ST elevation (NSTEMI) myocardial infarction; Z88.8 Allergy status to other drugs, medicaments and biological substances; Z95.5 Presence of coronary angioplasty implant and graft; J96.01 Acute respiratory failure with hypoxia; I13.0 Hypertensive heart and chronic kidney disease with heart failure and stage 1 through stage 4 chronic kidney disease, or unspecified chronic kidney disease; I48.20 Chronic atrial fibrillation, unspecified; I42.6 Alcoholic cardiomyopathy; I47.2 Ventricular tachycardia; Z88.5 Allergy status to narcotic agent; T51.9 Toxic effect of unspecified alcohol; Z79.899 Other long term (current) drug therapy; N28.89 Other specified disorders of kidney and ureter; Z83.3 Family history of diabetes mellitus; N17.9 Acute kidney failure, unspecified; Z88.1 Allergy status to other antibiotic agents; E66.9 Obesity, unspecified; J96.10 Chronic respiratory failure, unspecified whether with hypoxia or hypercapnia; N18.3 Chronic kidney disease, stage 3 (moderate); I34.0 Nonrheumatic mitral (valve) insufficiency; E78.5 Hyperlipidemia, unspecified; Z95.810 Presence of automatic (implantable) cardiac defibrillator; G47.33 Obstructive sleep apnea (adult) (pediatric); R63.4 Abnormal weight loss; Z99.81 Dependence on supplemental oxygen; J96.02 Acute respiratory failure with hypercapnia; I50.84 End stage heart failure; Z68.30 Body mass index [BMI] 30.0-30.9, adult; T40.5X1S Poisoning by cocaine, accidental (unintentional), sequela; Z79.84 Long term (current) use of oral hypoglycemic drugs

== ENCOUNTER 2020-05-12 20:47 | Inpatient (IN) ==
--- NOTE | 2020-05-12 21:00 | Emergency Department Note ---
Impression & Plan CHF (congestive heart failure), Cardiac volume overload, Bilateral edema of lower extremity ED Provider Note NAME: TAMIE VAUGHAN AGE: 64 SEX: M : 1955 ARRIVES VIA: Walk-In INFORMANT: Patient, ED PROVIDER(S): ED TEMP Chief Complaint: Leg swelling HPI: Patient does present with concern for worsening leg swelling. The patient states he is noticed this over the last several days. It is been progressively worse. The patient does not notice a change in diet or salt or fluids. Patient does have a known history of heart disease and does complain of some associated shortness of breath and dyspnea on exertion. Patient denies nausea or vomiting, fevers, or chills. The patient denies active chest pain. The patient states that he has been compliant with his medications. He recently did see his aristeo amest and did have a biopsy completed but was unsure as to the nature of the results. The patient does complain of pain and weeping wounds from the bilateral lower extremities. ROS: See HPI for pertinent positives and negatives. A total of 10 systems were reviewed and otherwise negative. Past medical history: See below Surgical history: See below Social history: See below Physical Exam: GENERAL: Chronically ill in appearance, wearing a mask. Nontoxic. EYE EXAM: Normal conjunctiva. PERRL, no anisocoria and EOM's grossly intact w/o pain. NECK: Supple, no nuchal rigidity, no adenopathy, non-tender. No signs of meningismus. LUNGS: Crackles noted, normal chest wall mechanics. HEART: NSR, no MRG. ABDOMEN: Abdomen soft, non-tender, normo-active bowel sounds, no masses, no rebound or guarding. BACK: No CVA TTP. SKIN: No rashes and no bruising. UPPER EXTREMITIES: Upper extremities are grossly normal. LOWER EXTREMITIES: Grossly normal, 4+ bilateral lower extremity edema with several weeping wounds noted without obvious cellulitic change. Drainage appears clear. No crepitus. NEURO EXAM: A&O x3, cranial nerves II-XII grossly intact, normal speech, moves all 4 extremities on command w/o issue. Differential diagnoses: Reactive airway disease, pneumonia, pneumothorax, COPD, CHF, infections, cardiac ischemia, pulmonary embolism, musculoskeletal, gastrointestinal, as well as other pathologies. Course: Patient was seen and evaluated the bedside. Full history physical exam was p erformed. EKG: Indication: Lower extremity swelling V paced rhythm, rate of 64, wide QRS and QTc, Q waves throughout T wave inversions in V2. No significant change from April 10, 2020 Imaging Studies: 1 view chest x-ray Cardiomegaly noted with device in left chest, interstitial pulmonary edema. No obvious consolidation or pneumothorax. Cardiac monitoring: An order was placed for continuous cardiac monitoring. The monitor shows a rate of 71 with paced rhythm. MDM: Patient was seen due to concern for worsening pain and lower extremity swelling. The patient did a blood work completed which shows an elevated BNP as well as what appears to be volume overload on his chest x-ray. EKG appears unchanged. Patient is on Bumex and metolazone as well as amiodarone as an outpatient does have a known history of cardiomyopathy with poor EF. The patient has a normal white counts and mild anemia. The patient's kidney function is slightly changed with the patient does have CKD. This may be from worsening heart failure. Patient also does have mild change in his LFTs but I believe this is more due to congestive change as the patient does not have abdominal pain. BNP is elevated at greater than 18,000 with a troponin is undetectable. Bumex was ordered. Patient did receive pain medications. I did speak the on-call hospitalist and the patient was admitted under Dr. Guevara. Past Med/Surg History Medical History Afib (Chronic) Allergic rhinitis (Acute) Asthma (Acute) Cervical radiculopathy (Acute) Chronic systolic heart failure COPD (chronic obstructive pulmonary disease) Coronary artery disease Degenerative cervical disc Diabetes mellitus, type 2 Dyslipidemia Hepatitis C History of ventricular tachycardia Hypertension Impotence, organic Ischemic cardiomyopathy EF 20% December 2019 Nephrolithiasis Obesity Obstructive sleep apnea of adult Osteoarthritis Peripheral neuropathy Renal mass Respiratory failure (03/23/20) Stage III chronic kidney disease Vitamin D deficiency (Chronic) Surgical History History of coronary artery stent placement ICD (implantable cardioverter-defibrillator) in place (07/2017) [facility] biventricular ICD Family History Unknown Cardiac disorder Hypertension Diabetes Father Myocardial infarction Mother Myocardial infarction Denies family history of Ovarian cancer Prostate cancer Breast cancer Colorectal cancer Social History Preferred Language: Khmer Communication Ability: Unable Visual Impairment: No Limitations Hearing Ability: Normal [employer] Required: No Beliefs That Will Affect Care: None marital status: Current Living Situation: Spouse Current Living Situation Comment: with & son current occupational status: retired Feels Safe at Home: No Is there a partner from a previous relationship who is making you feel unsafe now?: No Smoking Status: Former smoker Tobacco Type: cigarettes ; Age Quit Using Tobac co: 51 ; packs per day: 2 ; caffeine: No Dental Care, Regularly: No Physical Activity Frequency: 5-6 Times per Week Physical Activity Frequency Comment: walking Seatbelt Use: always Sunscreen Use: No Allergies Allergies Allergy/AdvReac Type Severity Reaction Status Date / Time budesonide Allergy Unknown TACHYCARDIA, Verified 05/12/20 18:29 SOB carbamazepine Allergy Unknown TACHYCARDIA, Verified 05/12/20 18:29 PANIC ATTACK cyclobenzaprine Allergy Unknown UNK Verified 05/12/20 18:29 doxycycline Allergy Unknown ABD PAIN Verified 05/12/20 18:29 fluticasone Allergy Unknown UNK Verified 05/12/20 18:29 formoterol Allergy Unknown TACHYCARDIA, Verified 05/12/20 18:29 SOB salmeterol Allergy Unknown ANAPHYLAXIS Verified 05/12/20 18:29 morphine Allergy Unknown Verified 05/12/20 18:29 tiotropium Allergy Unknown Verified 05/12/20 18:29 [From Spiriva with HandiHaler] digoxin AdvReac Unknown BACK AND Verified 05/12/20 18:29 STOMACH PAIN metformin AdvReac Unknown MUSCLE Verified 05/12/20 18:29 ACHES IN BVACK AND KIDNEYS Sodium Propionate Allergy Unknown SHORTNESS Uncoded 05/12/20 18:29 OF BREATH Home Meds Home Medications Medication Instructions Recorded Confirmed amiodarone 200 mg PO DAILY 07/22/19 05/12/20 aspirin [Ecotrin Low Strength] 81 mg PO DAILY 07/22/19 05/12/20 nitroglycerin 0.4 mg SUBLINGUAL Q5M PRN 07/22/19 05/12/20 cholecalciferol (vitamin D3) 25 1,000 units PO DAILY tab 11/05/19 05/12/20 mcg (1,000 unit) tablet coenzyme Q10 100 mg capsule 200 mg PO DAILY cap 11/05/19 05/12/20 fluticasone propionate 50 2 sprays INTRANASAL DAILY ml 11/05/19 05/12/20 mcg/actuation nasal spray,suspension triamcinolone acetonide 0.1 % 1 appln TOP TID 11/05/19 05/12/20 topical cream psyllium 1 tbs PO TID gm 01/23/20 05/12/20 Bifidobacterium infantis 4 mg PO DAILY 05/12/20 05/12/20 bumetanide 2 mg PO QAM 05/12/20 05/12/20 levalbuterol tartrate 2 puff INHALATION Q6H PRN 05/12/20 05/12/20 levothyroxine 50 mcg PO QAM 05/12/20 05/12/20 Previous Rx's Medication Instructions Recorded isosorbide mononitrate 30 mg 30 mg PO QAM #90 tab 11/05/19 tablet,extended release 24 hr nystatin 100,000 unit/gram topical 1 appln TOP BID #15 gm 11/05/19 cream ammonium lactate 12 % lotion 1 appln TOP DAILY PRN #227 gm 02/25/20 metolazone 2.5 mg PO DAILY PRN #10 tab 03/25/20 potassium chloride 20 meq PO DAILY PRN #10 tab 03/25/20 glimepiride 2 mg tablet 2 mg PO DAILY #90 tab 04/08/20 carvedilol 25 mg PO BID #540 tab 04/13/20 ipratropium 0.5 mg-albuterol 3 mg 3 ml INH Q6H PRN #360 ml 04/16/20 (2.5 mg base)/3 mL nebulization soln tramadol 50 mg tablet 50 mg PO Q6H PRN #30 tab 04/23/20 clopidogrel 75 mg tablet 75 mg PO DAILY #90 tab 05/04/20 mexiletine 150 mg capsule 150 mg PO BID #180 cap 05/04/20 pantoprazole 40 mg tablet,delayed 40 mg PO QAM #90 tab 05/04/20 release Results & Data (ED) Vital Signs Vital Signs - 24 hr 05/12/20 20:50 05/12/20 21:15 05/12/20 22:05 Temperature 36.5 C Temperature Source Oral Pulse Rate 66 Pulse Rate [Apical] 71 Respiratory Rate 18 16 Respiratory Effort / Characteristics Non-Labored Respiratory Depth Normal Blood Pressure 92/64 L Blood Pressure [Right Arm] 92/68 L Blood Pressure Mean 73 Blood Pressure Mean [Right Arm] 76 Pulse Oximetry 95 93 94 Oxygen Delivery Method Room Air Room Air Room Air Sepsis Recent Fever Within 48 Hours No Sepsis Action Taken by Nursing No Action Required Home Medications Current Medication List: was personally reviewed by me Laboratory Data Attestation: I reviewed the patient's lab results. Result diagrams: 05/12/20 21:08 05/12/20 21:08 Lab Results 05/12/20 05/12/20 05/12/20 Range/Units 21:08 21:08 21:08 WBC 6.96 (4.8-10.8) K/uL RBC 4.18 L (4.7-6.1) M/uL Hgb 11.9 L (14.0-18.0) g/dL Hct 37.5 L (42-52) % MCV 89.7 (80-100) fL MCH 28.5 (25-34) pg MCHC 31.7 L (32-36) g/dL RDW Std Deviation 52.4 H (36.4-46.3) fL RDW Coeff of Tristan 16.4 H (11.5-14.5) % Plt Count 274 (130-400) K/uL MPV 11.2 H (7.4-10.4) fL Immature Gran % (Auto) 0.4 % Neut % (Auto) 70.9 % Lymph % (Auto) 15.5 % [facility] % (Auto) 11.2 % Eos % (Auto) 1.7 % Baso % (Auto) 0.3 % Neut # (Auto) 4.93 (1.4-6.5) K/uL Lymph # (Auto) 1.08 L (1.2-3.4) K/uL [facility] # (Auto) 0.78 H (0.11-0.59) K/uL Eos # (Auto) 0.12 (0-0.5) K/uL Baso # (Auto) 0.02 (0-0.2) K/uL Immature Gran # (Auto) 0.03 H (0.00-0.02) K/uL PT 15.1 H (9.0-12.0) Seconds INR 1.5 H (0.9-1.1) APTT 30.3 (21.0-31.0) Seconds PTT Ratio 1.1 Sodium 131 L (136-145) mmol/L Potassium 4.6 (3.5-5.1) mmol/L Chloride 97 L (98-107) mmol/L Carbon Dioxide 24 (21-32) mmol/L Anion Gap 10.0 (3-11) BUN 63 H (7-18) mg/dl Creatinine 3.29 H (0.6-1.4) mg/dl Est Cr Clr Drug Dosing Not Reportable Est GFR ( Amer) 21.4 Est GFR (Non-Af Amer) 18.5 BUN/Creatinine Ratio 19.1 (10-20) Glucose 110 H (70-99) mg/dl Lactate (0.4-2.0) mmol/L Calcium 9.0 (8.5-10.1) mg/dl Magnesium 2.7 H (1.8-2.4) mg/dl Total Bilirubin 1.5 H (0.2-1) mg/dl AST 50 H (15-37) U/L ALT 79 H (12-78) U/L Alkaline Phosphatase 59 (45-117) U/L Troponin I < 0.015 (0-0.045) ng/ml NT-Pro-B Natriuret Pep 66402 H (0-900) pg/ml Total Protein 6.6 (6.4-8.2) gm/dl Albumin 2.9 L (3.4-5.0) gm/dl Globulin 3.7 (2.5-4.0) gm/dl Albumin/Globulin Ratio 0.8 L (0.9-2) / Range/Units 21:08 WBC (4.8-10.8) K/uL RBC (4.7-6.1) M/uL Hgb (14.0-18.0) g/dL Hct (42-52) % MCV (80-100) fL MCH (25-34) pg MCHC (32-36) g/dL RDW Std Deviation (36.4-46.3) fL RDW Coeff of Tristan (11.5-14.5) % Plt Count (130-400) K/uL MPV (7.4-10.4) fL Immature Gran % (Auto) % Neut % (Auto) % Lymph % (Auto) % [facility] % (Auto) % Eos % (Auto) % Baso % (Auto) % Neut # (Auto) (1.4-6.5) K/uL Lymph # (Auto) (1.2-3.4) K/uL [facility] # (Auto) (0.11-0.59) K/uL Eos # (Auto) (0-0.5) K/uL Baso # (Auto) (0-0.2) K/uL Immature Gran # (Auto) (0.00-0.02) K/uL PT (9.0-12.0) Seconds INR (0.9-1.1) APTT (21.0-31.0) Seconds PTT Ratio Sodium (136-145) mmol/L Potassium (3.5-5.1) mmol/L Chloride (98-107) mmol/L Carbon Dioxide (21-32) mmol/L Anion Gap (3-11) BUN (7-18) mg/dl Creatinine (0.6-1.4) mg/dl Est Cr Clr Drug Dosing Est GFR ( Amer) Est GFR (Non-Af Amer) BUN/Creatinine Ratio (10-20) Glucose (70-99) mg/dl Lactate 2.4 H* (0.4-2.0) mmol/L Calcium (8.5-10.1) mg/dl Magnesium (1.8-2.4) mg/dl Total Bilirubin (0.2-1) mg/dl AST (15-37) U/L ALT (12-78) U/L Alkaline Phosphatase (45-117) U/L Troponin I (0-0.045) ng/ml NT-Pro-B Natriuret Pep (0-900) pg/ml Total Protein (6.4-8.2) gm/dl Albumin (3.4-5.0) gm/dl Globulin (2.5-4.0) gm/dl Albumin/Globulin Ratio (0.9-2) Administered Medications Bumetanide 1 mg/ Syringe 4 mls @ 4 mls/min IV NOW EMMA Stop: 06/11/20 21:59 Last Admin: 05/12/20 22:09 Dose: 4 mls/min Documented by: [id number] Discontinued Medications Fentanyl Citrate (Fentanyl Citrate) 50 mcg IV NOW STA Stop: 05/12/20 21:55 Last Admin: 05/12/20 22:07 Dose: 50 mcg Documented by: [id number] Discharge Plan Visit Data Chief Complaint: Swelling/Edema to Extremity Stated Complaint: LEG SWELLING AND BLISTERS ON FEET ED Provider: Sridhar Khan Discharge Problem: CHF (congestive heart failure), Cardiac volume overload, Bilateral edema of lower extremity Forms Stand Alone Forms: [facility] [employer] Prescriptions Prescriptions: No Action ammonium lactate 12 % lotion 1 appln TOP DAILY PRN (Reason: dry skin) Qty: 227 RF: 1 glimepiride 2 mg tablet 2 mg PO DAILY Qty: 90 RF: 1 ipratropium-albuterol 0.5 mg-3 mg(2.5 mg base)/3 mL solution for nebulization 3 ml INH Q6H PRN (Reason: wheezing or shortness of breath) Qty: 360 RF: 5 tramadol 50 mg tablet 50 mg PO Q6H PRN (Reason: pain) Qty: 30 RF: 0 clopidogrel 75 mg tablet 75 mg PO DAILY Qty: 90 RF: 3 mexiletine 150 mg capsule 150 mg PO BID Qty: 180 RF: 1 pantoprazole 40 mg tablet,delayed release (DR/EC) 40 mg PO QAM Qty: 90 RF: 0 triamcinolone acetonide 0.1 % cream 1 appln TOP TID RF: 0 isosorbide mononitrate 30 mg tablet extended release 24 hr 30 mg PO QAM Qty: 90 RF: 1 nystatin 100,000 unit/gram cream 1 appln TOP BID Qty: 15 RF: 1 Fiber Smooth Powder 1 tbs PO TID RF: 0 amiodarone 200 mg tablet 200 mg PO DAILY RF: 0 nitroglycerin 0.4 mg tablet, sublingual 0.4 mg sublingual Q5M PRN (Reason: Chest Pain) RF: 0 aspirin [Ecotrin Low Strength] 81 mg Tablet,Delayed Release (Dr/Ec) 81 mg PO DAILY RF: 0 cholecalciferol (vitamin D3) 25 mcg (1,000 unit) tablet 1,000 units PO DAILY RF: 0 fluticasone propionate 50 mcg/actuation spray,suspension 2 sprays intranasal DAILY RF: 0 coenzyme Q10 100 mg capsule 200 mg PO DAILY RF: 0 metolazone 2.5 mg tablet 2.5 mg PO DAILY PRN (Reason: weight gain to 207 lbs) Qty: 10 RF: 0 potassium chloride 20 mEq tablet extended release 20 meq PO DAILY PRN (Reason: only to be taken with metoloazone) Qty: 10 RF: 0 Bifidobacterium infantis 4 mg Capsule 4 mg PO DAILY RF: 0 bumetanide 2 mg tablet 2 mg PO QAM RF: 0 levothyroxine 50 mcg tablet 50 mcg PO QAM RF: 0 levalbuterol tartrate 45 mcg/actuation HFA aerosol inhaler 2 puff INHALATION Q6H PRN (Reason: Shortness Of Breath) RF: 0 carvedilol 12.5 mg tablet 25 mg PO BID Qty: 540 RF: 1 Discharge Problem: CHF (congestive heart failure) Qualifiers: Heart failure type: unspecified Heart failure chronicity: acute on chronic Qualified Code(s): I50.9 - Heart failure, unspecified
[2020-05-12 21:18] LABS: Basophils # (auto) 0.02 K/uL (0-0.2); Basophils % (auto) 0.3 %; Eosinophils # (auto) 0.12 K/uL (0-0.5); Eosinophils % (auto) 1.7 %; Hematocrit (blood only) 37.5 % (42-52); Hemoglobin 11.9 g/dL (14.0-18.0); Immature Granulocytes # (auto) 0.03 K/uL (0.00-0.02); Immature Granulocytes % (auto) 0.4 %; Lymphocytes # (auto) 1.08 K/uL (1.2-3.4); Lymphocytes % (auto) 15.5 %; Mean Corpuscular Hemoglobin 28.5 pg (25-34); Mean Corpuscular Hgb Conc 31.7 g/dL (32-36); Mean Corpuscular Volume 89.7 fL (80-100); Mean Platelet Volume 11.2 fL (7.4-10.4); Monocytes # (auto) 0.78 K/uL (0.11-0.59); Monocytes % (auto) 11.2 %; Neutrophils # (auto) 4.93 K/uL (1.4-6.5); Neutrophils % (auto) 70.9 %; Platelet Count 274 K/uL (130-400); RDW Coefficient of Variation 16.4 % (11.5-14.5); RDW Standard Deviation 52.4 fL (36.4-46.3); Red Blood Count 4.18 M/uL (4.7-6.1); White Blood Count 6.96 K/uL (4.8-10.8)
[2020-05-12 21:30] LABS: INR 1.5 (0.9-1.1); Partial Thromboplastin Ratio 1.1; Partial Thromboplastin Time 30.3 Seconds (21.0-31.0); Prothrombin Time 15.1 Seconds (9.0-12.0)
[2020-05-12 21:36] LABS: Alanine Aminotransferase 79 U/L (12-78); Albumin Level 2.9 gm/dl (3.4-5.0); Aspartate Aminotransferase 50 U/L (15-37); BUN Creatinine Ratio 19.1 (10-20); Blood Urea Nitrogen 63 mg/dl (7-18); Carbon Dioxide 24 mmol/L (21-32); Chloride 97 mmol/L (98-107); Est GFR (African American) 21.4; Est GFR (Non-African American) 18.5; Glucose 110 mg/dl (70-99); Magnesium 2.7 mg/dl (1.8-2.4); Potassium 4.6 mmol/L (3.5-5.1); Sodium 131 mmol/L (136-145)
[2020-05-12 21:41] LABS: Albumin Globulin Ratio 0.8 (0.9-2); Alkaline Phosphatase 59 U/L (45-117); Bilirubin,Total 1.5 mg/dl (0.2-1); Globulin 3.7 gm/dl (2.5-4.0); NT Pro B Type Natriuretic Pept 18854 pg/ml (0-900); Total Protein 6.6 gm/dl (6.4-8.2); Troponin I < 0.015 ng/ml (0-0.045)
[2020-05-12] MEDS ORDERED: fentaNYL citrate 100 MCG/2 ML VIAL IV STA (21:54)
[2020-05-12] MEDS ORDERED: BUMETANIDE 1 MG in SYRINGE 0 ML IV SCH (22:00)
[2020-05-13] MEDS ORDERED: ONDANSETRON INJ 2 MG/ML 2 ML VIAL IV PRN (00:09)
[2020-05-13] MEDS ORDERED: ALUMINUM/MAGNESIUM SUSP 30 ML UDC PO PRN (00:09)
[2020-05-13] MEDS ORDERED: MAGNESIUM HYDROXIDE SUSP 30 ML UDC PO PRN (00:09)
[2020-05-13] MEDS ORDERED: POLYETHYLENE (MIRALAX) 17 GM PACK PO PRN (00:09)
--- NOTE | 2020-05-13 01:11 | History & Physical Report ---
Date of Service May 13, 2020 Assessment & Plan Admission and Anticipated Discharge Date Admission Date: 64 y/o M w/ pMHx. of COPD, HFrEF, HTN, HLD, DM, CKD w/ worsening lower extremity edema over the last month HFrEF exacerbation w/ ECHO on 04/29 w/ EF <20%, symptomatic with minimal activity, ICD in place - lower extremity does not appear to be infected at this time - NT BNP 18,854 - given Bumex 1MG IV in the ED - cardiology consulted - BP on the lower side at 103/68 - consider using a positive inotropic agents such as Dobutamine - given Albumin - diet w/ low sodium diet - daily weights ART on CKD - Cr. 3.29 currently - continue to follow w/ AM BMP Arrhythmia - EKG ordered - continue Amiodarone Diabetes mellitus II - most recent A1C 6.2 (04/23) - carb consistent diet - glycemic consult COPD - continue duonebs - continue CPAP - continue oxygen Hypothyroidism - continue levothyroxine DVT: Heparin Diet: diabetes diet, heart healthy, low sodium Code: DNR/DNI Disposition: med/surg w/ telemetry History of Present Illness Chief Complaint: lower extremity edema Primary Care Provider: Camelia Barclay DO Claudio Vee is a 64 year old male with a pMHx. of HTN, HLD, DM, CKD, HFrEF (EF 20%), severe mitral regurgitation, COPD and refractory ventricular arrhythmias. [employer]-D presenting with worsening lower extremity edema. He has not had increased weight gain, with a dry weight of 195. The swelling is increasing over the last month. He had a biopsy of his left foot and explains that since this time he has had weeping of his leg. He explains there have not been changes in his diet lately. He explains that he did eat hotdogs 2 weeks prior and had worsening of his bruising in his lower legs. He has had increased pain in his legs currently they are 8-9/10 constant pain. He has had to cut his shoes to allow his feet to fit. He had initially seen Dr. Jose, but transitioned to see Dr. Hagan to keep his medical care within one system. He follows with the heart failure program. He had venison today, but tries to avoid eating salt but is not sure how much he eats in a day. He has been sleeping with 0 or 1 pillows. He does have dyspnea or exertion and states he can walk approximately 20 feet when he develops shortness of breath. He is on 2 1/2 L of oxygen at home and 3 1/2 L at night as well as CPAP. He has previously seen Palliative care, and explained that he did not want to see them again during this admission. He brought in his POLST form that he had filled out in the past. Social Hx.: - lives at home with his 2 sons and - approx. 20 pack year smoking history Allergies Allergy/AdvReac Type Severity Reaction Status Date / Time budesonide Allergy Unknown TACHYCARDIA, Verified 05/12/20 18:29 SOB carbamazepine Allergy Unknown TACHYCARDIA, Verified 05/12/20 18:29 PANIC ATTACK cyclobenzaprine Allergy Unknown UNK Verified 05/12/20 18:29 doxycycline Allergy Unknown ABD PAIN Verified 05/12/20 18:29 fluticasone Allergy Unknown UNK Verified 05/12/20 18:29 formoterol Allergy Unknown TACHYCARDIA, Verified 05/12/20 18:29 SOB salmeterol Allergy Unknown ANAPHYLAXIS Verified 05/12/20 18:29 morphine Allergy Unknown Verified 05/12/20 18:29 tiotropium Allergy Unknown Verified 05/12/20 18:29 [From Spiriva with HandiHaler] digoxin AdvReac Unknown BACK AND Verified 05/12/20 18:29 STOMACH PAIN metformin AdvReac Unknown MUSCLE Verified 05/12/20 18:29 ACHES IN BVACK AND KIDNEYS Sodium Propionate Allergy Unknown SHORTNESS Uncoded 05/12/20 18:29 OF BREATH Home Medications Home Medications Medication Instructions Recorded Confirmed Type amiodarone 200 mg PO DAILY 07/22/19 05/12/20 History aspirin [Ecotrin Low Strength] 81 mg PO DAILY 07/22/19 05/12/20 History nitroglycerin 0.4 mg SUBLINGUAL Q5M PRN 07/22/19 05/12/20 History cholecalciferol (vitamin D3) 25 1,000 units PO DAILY tab 11/05/19 05/12/20 History mcg (1,000 unit) tablet coenzyme Q10 100 mg capsule 200 mg PO DAILY cap 11/05/19 05/12/20 History fluticasone propionate 50 2 sprays INTRANASAL DAILY ml 11/05/19 05/12/20 History mcg/actuation nasal spray,suspension isosorbide mononitrate 30 mg 30 mg PO QAM #90 tab 11/05/19 05/12/20 Rx tablet,extended release 24 hr nystatin 100,000 unit/gram topical 1 appln TOP BID #15 gm 11/05/19 05/12/20 Rx cream triamcinolone acetonide 0.1 % 1 appln TOP TID 11/05/19 05/12/20 History topical cream psyllium 1 tbs PO TID gm 01/23/20 05/12/20 History ammonium lactate 12 % lotion 1 appln TOP DAILY PRN #227 gm 02/25/20 05/12/20 Rx metolazone 2.5 mg PO DAILY PRN #10 tab 03/25/20 05/12/20 Rx potassium chloride 20 meq PO DAILY PRN #10 tab 03/25/20 05/12/20 Rx glimepiride 2 mg tablet 2 mg PO DAILY #90 tab 04/08/20 05/12/20 Rx carvedilol 25 mg PO BID #540 tab 04/13/20 05/12/20 Rx ipratropium 0.5 mg-albuterol 3 mg 3 ml INH Q6H PRN #360 ml 04/16/20 05/12/20 Rx (2.5 mg base)/3 mL nebulization soln tramadol 50 mg tablet 50 mg PO Q6H PRN #30 tab 04/23/20 05/12/20 Rx clopidogrel 75 mg tablet 75 mg PO DAILY #90 tab 05/04/20 05/12/20 Rx mexiletine 150 mg capsule 150 mg PO BID #180 cap 05/04/20 05/12/20 Rx pantoprazole 40 mg tablet,delayed 40 mg PO QAM #90 tab 05/04/20 05/12/20 Rx release Bifidobacterium infantis 4 mg PO DAILY 05/12/20 05/12/20 History bumetanide 2 mg PO QAM 05/12/20 05/12/20 History levalbuterol tartrate 2 puff INHALATION Q6H PRN 05/12/20 05/12/20 History levothyroxine 50 mcg PO QAM 05/12/20 05/12/20 History Past Med/Surg History Medical History Afib (Chronic) Allergic rhinitis (Acute) Asthma (Acute) Cervical radiculopathy (Acute) Chronic systolic heart failure COPD (chronic obstructive pulmonary disease) Coronary artery disease Degenerative cervical disc Diabetes mellitus, type 2 Dyslipidemia Hepatitis C History of ventricular tachycardia Hypertension Impotence, organic Ischemic cardiomyopathy EF 20% December 2019 Nephrolithiasis Obesity Obstructive sleep apnea of adult Osteoarthritis Peripheral neuropathy Renal mass Respiratory failure (03/23/20) Stage III chronic kidney disease Vitamin D deficiency (Chronic) Surgical History History of coronary artery stent placement ICD (implantable cardioverter-defibrillator) in place (07/2017) 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 Required: No Beliefs That Will Affect Care: None marital status: Current Living Situation: Spouse Current Living Situation Comment: with & son current occupational status: retired Feels Safe at Home: Yes Safety Concerns: Feels Safe At This Time Smoking Status: Never smoker Tobacco Type: cigarettes ; Age Quit Using Tobacco: 51 ; packs per day: 2 ; Hx Alcohol Use: No Hx Substance Use: No caffeine: No Dental Care, Regularly: No Physical Activity Frequency: 5-6 Times per Week Physical Activity Frequency Comment: walking Seatbelt Use: always Sunscreen Use: No Review of Systems Review of Systems: Constitutional: denies fever, chills, nausea, vomiting, night sweats Head: denies trauma, vision changes admits lightheadedness Neurologic: denies syncope or presyncope Cardiac: denies chest pain, palpitations, admits leg swelling and BARRETT Pulm: denies sputum production with a small amount of brown sputum w/o smell GI: denies diarrhea, blood in stool admits indigestion and constipation : Denies urgency, dysuria Physical Exam Constitutional: WD/WN, vitals as above Eyes: PERRL, conjunctivae normal, anicteric sclerae ENMT: external ear and nose normal, oropharynx normal Neck: normal visual inspection Respiratory: - no respiratory distress - slight crackles of lungs bilaterally - good air movement - no focal lung findings appreciated Cardiovascular: Rate/Rhythm: regular rate Vessels: no JVD Extremities: + pedal edema (2+ pitting edema above knee bilaterally ) Gastrointestinal (Abdomen): - normal bowel sounds, soft, nontender Skin: - bruising of the lower extremity bilaterally - weeping lower extremity wounds bilaterally, with skin breakdown Psychiatric: A+Ox3, euthymic affect Results & Data Results & Data ([facility]) Vital Signs (Past 12 Hours) Vital Signs Temp Pulse Pulse Resp BP BP Pulse Ox 05/13/20 00:00 82 18 91/58 L 99 05/12/20 22:05 71 16 92/68 L 94 05/12/20 21:15 93 05/12/20 20:50 36.5 C 66 18 92/64 L 95 CBC Results Results Complete Blood Count Results: RBC 4.26 M/uL (4.7-6.1) L 05/13/20 WBC 7.04 K/uL (4.8-10.8) 05/13/20 Hgb 12.1 g/dL (14.0-18.0) L 05/13/20 Hct 38.7 % (42-52) L 05/13/20 Plt Count 244 K/uL (130-400) 05/13/20 Chemistry (BMP) Results BMP Results: Sodium 134 mmol/L (136-145) L 05/13/20 Potassium 3.9 mmol/L (3.5-5.1) 05/13/20 Chloride 99 mmol/L (98-107) 05/13/20 BUN 64 mg/dl (7-18) H 05/13/20 Creatinine 2.91 mg/dl (0.6-1.4) H 05/13/20 Glucose 66 mg/dl (70-99) L 05/13/20 Code Status & VTE Plan VTE Prophylaxis Plan VTE Prophylaxis will be ordered: Yes Supervising Physician Co-Signing Physician Notes Attending addendum: I have physically seen this patient, have supervised the medical residents activities, and agree with the H&P unless as otherwise noted. Assessment and Plan: Acute on chronic HFrEF/MR/history of non-STEMI/history of V. tach/ischemic cardiomyopathy/CAD/arrhythmia- EF <20% on 04/29. Has already been given Bumex 1 mg IV by the ED and will continue twice daily Blood pressure following administration was 92/50. Give albumin 25 g IV x1 now Patient may need a combination of dobutamine IV and Bumex IV, but difficult with his arrhythmia status. Continue amiodarone, aspirin, carvedilol, clopidogrel, isosorbide mononitrate extended release and mexiletine. Cardiology consult Dr. Hagan. ART on CKD- Creatinine 3.29 upon admission, with range 1.47-2.14. Likely secondary to decreased forward flow Follow serially Diabetes mellitus- Hold glimepiride. Placed on Accu-Cheks before meals and at bedtime with NovoLog coverage per scale Remainder of orders and notations as noted. Resident Activity Tracking Resident Involvement: Resident Care Provided Care Provided: Adult Hospital Medicine
[2020-05-13] MEDS ORDERED: ALBUMIN 25% 50 ML IV ONE (04:09)
[2020-05-13] MEDS ORDERED: POTASSIUM CHLORIDE 20 MEQ TABCR PO PRN (04:09)
[2020-05-13] MEDS ORDERED: LEVALBUTEROL TARTRATE 15 GM HFA.AER.AD INH PRN (04:09)
[2020-05-13] MEDS ORDERED: metOLazone 2.5 MG TABLET PO PRN (04:09)
[2020-05-13] MEDS ORDERED: PHARMACY GLYCEMIC MGMT CONSULT PRN (04:16)
[2020-05-13] MEDS ORDERED: AMMONIUM LACTATE 12% LOTION 225 GM BTL EXT PRN (04:17)
[2020-05-13] MEDS: TRAMADOL HCL 50 MG TABLET PO PRN ×3 (04:27→19:47)
[2020-05-13] MEDS: PATIENT'S HEIGHT AND/OR WEIGHT NEEDED SCH ×2 (04:38→05:53)
[2020-05-13] MEDS: LEVOTHYROXINE SODIUM 50 MCG TABLET PO SCH (05:44)
[2020-05-13] MEDS ORDERED: CARBOHYDRATES FOR HYPOGLYCEMIA PO PRN (06:15)
[2020-05-13] MEDS ORDERED: GLUCAGON FOR INJ 1 MG VIAL SQ PRN (06:15)
[2020-05-13] MEDS ORDERED: GLUCOSE 40% GEL 15 GM TUBE PO PRN (06:15)
[2020-05-13] MEDS ORDERED: GLUCOSE 10 TABS/TUBE PO PRN (06:15)
[2020-05-13] MEDS ORDERED: DEXTROSE 50% 50 ML SYRINGE IV PRN (06:15)
[2020-05-13 07:27] LABS: Basophils # (auto) 0.02 K/uL (0-0.2); Basophils % (auto) 0.3 %; Eosinophils # (auto) 0.09 K/uL (0-0.5); Eosinophils % (auto) 1.3 %; Hematocrit (blood only) 38.7 % (42-52); Hemoglobin 12.1 g/dL (14.0-18.0); Immature Granulocytes # (auto) 0.03 K/uL (0.00-0.02); Immature Granulocytes % (auto) 0.4 %; Lymphocytes % (auto) 15.6 %; Mean Corpuscular Hemoglobin 28.4 pg (25-34); Mean Corpuscular Hgb Conc 31.3 g/dL (32-36); Mean Corpuscular Volume 90.8 fL (80-100); Mean Platelet Volume 11.5 fL (7.4-10.4); Monocytes % (auto) 8.5 %; Neutrophils % (auto) 73.9 %; Platelet Count 244 K/uL (130-400); RDW Coefficient of Variation 16.6 % (11.5-14.5); RDW Standard Deviation 53.7 fL (36.4-46.3); Red Blood Count 4.26 M/uL (4.7-6.1); White Blood Count 7.04 K/uL (4.8-10.8)
[2020-05-13 08:05] LABS: BUN Creatinine Ratio 21.9 (10-20); Calcium 9.1 mg/dl (8.5-10.1); Creatinine Clr Calc Pharmacy 26.8 ml/min; Est GFR (African American) 24.9; Est GFR (Non-African American) 21.5; Potassium 3.9 mmol/L (3.5-5.1)
--- NOTE | 2020-05-13 08:47 | XRay Report ---
XR chest 1V portable CLINICAL HISTORY: Dyspnea COMPARISON STUDY: 04/10/2020 FINDINGS: The heart is enlarged. There is a left-sided pacer/defibrillator. There are developing left upper lung zone airspace opacities. There are improving right lung airspace opacities. The findings likely represent shifting pulmonary edema. The endotracheal tube and nasogastric tubes have been heather janessa.[ IMPRESSION: 1. Interval removal of the endotracheal tube and nasogastric tubes 2. Improving right lung airspace opacities and worsening left lung airspace opacities, likely represe nting shifting pulmonary edema. Clinical and radiographic follow-up is recommended. ACT 112: Negative or not required by law. Electronically signed by: Juan Ramon López M.D. 05/13/2020 7:40 AM
[2020-05-13] MEDS ORDERED: BUMETANIDE 1 MG TAB PO SCH (09:00)
[2020-05-13] MEDS ORDERED: NON-FORMULARY MEDICATION (Coenzyme Q10 200 MG) PO SCH (09:00)
[2020-05-13] MEDS: AMIODARONE 200 MG TAB PO SCH (09:08)
[2020-05-13] MEDS: HEPARIN SOD 5,000 UNIT/0.5 ML VIAL SQ SCH ×2 (09:12→20:43)
[2020-05-13] MEDS: carvediloL 25 MG TAB PO SCH ×2 (09:12→20:43)
[2020-05-13] MEDS: ISOSORBIDE MONO EXTENDED REL 30 MG TABCR PO SCH (09:12)
[2020-05-13] MEDS: ASPIRIN 81 MG ECTAB PO SCH (09:12)
[2020-05-13] MEDS: CLOPIDOGREL BISULFATE 75 MG TAB PO SCH (09:13)
[2020-05-13] MEDS: PANTOprazole 40 MG TAB PO SCH (09:13)
[2020-05-13] MEDS: MEXILETINE HCL 150 MG CAPSULE PO SCH ×2 (09:13→20:40)
[2020-05-13] MEDS: INSULIN ASPART 100 UNITS/ML 3 ML PEN SC SCH ×4 (09:14→20:44)
[2020-05-13] MEDS: BUMETANIDE 2 MG in SYRINGE 0 ML IV SCH ×2 (09:27→17:12)
--- NOTE | 2020-05-13 10:10 | Pharmacy Report ---
Glycemic Control Consultation - Date of Service May 13, 2020 - Scope Scope: Glycemic Pharmacist consulted for glycemic control and to write orders per [facility] inpatient glycemic control protocol. - Objective Weight: 90.7 kg Accuchecks BSG (last 24hrs): 05/12/20 05/13/20 21:08 06:48 Glucose 110 H 66 L Laboratory Data (last 24hrs): 05/12/20 05/13/20 21:08 06:48 Potassium 4.6 3.9 D Carbon Dioxide 24 24 Anion Gap 10.0 11.0 Creatinine 3.29 H 2.91 H D Est Cr Clr Drug Dosing Not Reportable 26.8 - Recent Pertinent Medications Outpatient Anti-diabetic Regimen: * Glimepiride 2 mg PO daily * A1c = 6.2% from 04/23/20 * This is down from 7.3% in December 2019 * However, this result is likely somewhat unreliable in CKD patients d/t interactions between the A1c analyzing technique and high levels of urea, reduced RBC life span, iron deficiency anemia. HbA1c > 7.5% in CKD patient may overestimate the extent of hyperglycemia. Risk Factors for Insulin Resistance: * Diet: T2DM - Assessment & Plan Assessment & Plan: ASSESSMENT: * 64 yo M admitted secondary to lower extremity edema/HF exacerbation * PMHx significant for HTN, HLD, T2DM, CKD-III (baseline SCr 1.8-2.0), HFrEF (EF 20%), COPD * Most recent A1c demonstrated excellent outpatient control of T2DM on glimepiride monotherapy; however, this result may not be reliable secondary to patient's history of CKD. * Admission BSG was 110 mg/dL, overnight it was 91 mg/dL and random BSG this AM was 66 mg/dL. Of note, the patient does have acute on chronic renal insufficiency with SCr of 2.9 this AM. He has not eaten since being admitted. * Given BSGs below goal this AM, will add a loose CF/CR based on weight and stress of ~ 1. No basal insulin required as of now. PLAN FOR INPATIENT GLYCEMIC CONTROL: * Pt is maintained on oral antidiabetic agents as an outpatient * Oral agents are not recommended for inpatient use d/t drug interactions, changing PO intake, and difficulty titrating for acute hyper/hypoglycemia. ADA recommends re-initiating outpatient oral agents 1-2 days prior to discharge if/when appropriate if they were held on admission. Will hold oral agents for now and utilize bolus insulin only. * Basal insulin - None * Bolus insulin * NovoLog per scale ACHS or Q6hrs while NPO * Goal Range: Low 110 mg/dL - High 140 mg/dL * Correction Factor: 35 mg/dL/unit * Nutritional/Prandial: 1 unit of insulin for every 12 gm of CHO * Please note that the plan above was derived based on current level of insulin resistance and hospital stress. These recommendations are appropriate for inpatient admission only. Plan of care upon discharge will need to be reassessed to avoid potential outpatient hypo/hyperglycemia. Thank you.
--- NOTE | 2020-05-13 11:51 | Hospitalist Progress Note ---
Date of Service May 13, 2020 Assessment & Plan (1) CHF (congestive heart failure): Patient is a 64 yo gentleman for progressive LE edema secondary to CHF exacerbation. He has had several recent hospital admissions for CHF exacerbations that involved decompensation to respiratory failure requiring intubation and mechanical ventilation. - continue diuresing with IV Bumex - BMPs daily - continue carvedilol and imdur - cardiology following - patient is end stage and would benefit from a heart transplant but is unfortunately not a candidate due to bilateral renal cell carcinoma. Patient has met with palliative care in the past and has completed a POLST form. (2) Ischemic cardiomyopathy: -severe left ventricular dysfunction with ejection fraction of less than 20%. (3) Bilateral edema of lower extremity: - secondary to CHF exacerbation as above - overlying erythema of R LE with tenderness is concerning for cellulitis; will treat with Keflex - patient had biopsy done as outpatient for vasculitis lesions - wound care nurse consulted (4) History of ventricular tachycardia: - continue amiodarone and mexetiline - ICD in place; interrogated 04/21/2020 (5) Dyslipidemia: - continue ASA and statin (6) Diabetes mellitus, type 2: (7) COPD (chronic obstructive pulmonary disease): - continue home inhalers (8) Coronary artery disease: - end stage coronary disease (9) Renal cell carcinoma of both kidneys: - followed by Dr. Rivera closely Dispo: Med/Surg Diet: Heart healthy, Low sodium, DM II DVT: Heparin SQ Code: DNR/DNI Admission and Anticipated Discharge Date Admission Date: May 13, 2020 Supervising Physician Co-Signing Physician Notes I personally examined the patient and verified all couch points of history and exam, discussed case, and agree with decision making with Dr Reyes. legs hurt is biggest problem - R ankle, L knee. red and painful. bx pending. breathing fairly stable. tried to broach his thoughts on his overall situation and prognosis but was not really able to make inroads and given that this is the first i've seen him in about a year i did not want to bluntly hit the topic without first re-establishing rapport. vitals noted nad heent nc at mmm. skin/ext - b/l LE w diffuse purpuric lesions R ankle w dressed ulceration and surrounding tender erythema but no fluctuance or exudate. L knee anterior to kneecap small area of erythema and exquisite tenderness but no fluctuance and no knee erythema around joint no joint effusion or tenderness on jointline. acute on chronic hypoxic respiratory failure related to essentially end stage systolic CHF (HFrEF) - see cardiology notes in regards to med managements tried and failed, for now continue current meds and supportive care questionable vasculitis b/l LE - await path RLE cellulitis centering around ulcer - cover w 1st gen cephalosporin, follow closely L knee erythema - etiology not clear. most c/w cellulitis except for distribution (abx as above would cover for this), not c/w gout or prepatellar bursitis given lack of effusions, ?related to possible vasculitis somehow - await bx in that regard as well, topical lidocaine for now, serial exams. otherwise as above Subjective Patient reports improvement in leg swelling since admission, although significant discomfort R LE. Does not feel short of breath. Review of Systems 2 Review of Systems: All systems reviewed & are unremarkable except as noted in HPI & below Physical Exam Constitutional: WD/WN, vitals as above Eyes: + anicteric sclerae ENMT: external ear and nose normal, oropharynx normal Neck: normal visual inspection and trachea midline Respiratory: normal respiratory effort Auscultation: + crackles Cardiovascular: Rate/Rhythm: regular rate and regular rhythm Heart Sounds: normal S1 and normal S2 Vessels: + JVD (elevated) Extremities: + pedal edema Heart sounds distant. No S3. Chest (Breasts): Additional Comments: ICD in place Skin: + R LE erythema, no warmth, but tender + multiple weeping lesions + scattered purpura on b/l LE Psychiatric: A+Ox3, euthymic affect Results & Data Results & Data ([facility]) Vital Signs (Past 12 Hours) Vital Signs Temp Pulse Pulse Pulse Resp BP BP 05/13/20 11:12 64 18 102/65 05/13/20 07:22 68 05/13/20 07:10 61 18 102/54 L 05/13/20 06:02 88 05/13/20 03:22 36.5 C 66 20 103/69 05/13/20 02:30 36.5 C 75 18 93/65 L 05/13/20 01:40 75 18 103/68 05/13/20 01:09 67 17 94/64 L 05/13/20 00:00 82 18 91/58 L Pulse Ox 05/13/20 11:12 95 05/13/20 07:22 05/13/20 07:10 98 05/13/20 06:02 05/13/20 03:22 97 05/13/20 02:30 92 05/13/20 01:40 94 05/13/20 01:09 93 05/13/20 00:00 99 Resident Activity Tracking Resident Involvement: Resident Care Provided Care Provided: Adult Hospital Medicine (1) Coronary artery disease Associated angina: without angina Coronary Disease-Associated Artery/Lesion type: [place] artery [place] vs. transplanted heart: [place] heart Qualified Code(s): I25.10 - Atherosclerotic heart disease of [place] coronary artery without angina pectoris (2) CHF (congestive heart failure) Heart failure chronicity: acute on chronic Heart failure type: unspecified Qualified Code(s): I50.9 - Heart failure, unspecified
[2020-05-13] MEDS ORDERED: OXYCODONE HCL IR 5 MG TAB (IMMEDIATE RELEASE) PO STA (12:42)
--- NOTE | 2020-05-13 13:13 | Cardiology Consultation ---
Date of Consultation May 13, 2020 Assessment & Plan (1) Acute systolic (congestive) heart failure: -decompensated time of presentation yesterday. -agree with intravenous Bumex. -continue carvedilol and Imdur. -the patient discontinued Entresto on his own. (2) Ischemic cardiomyopathy: -severe left ventricular dysfunction with ejection fraction of less than 20%. -poor prognosis. (3) Mitral regurgitation: -severe mitral regurgitation noted on his most recent echocardiogram. -poor prognosis. (4) ICD (implantable cardioverter-defibrillator) in place: -normal function at time of device interrogation April 21, 2020. History of Present Illness Attending Physician: Jhonatan Escobar DO History of Present Illness Mr. Vee is a 64-year-old male with a complex past medical history admitted yesterday in decompensated CHF. This consultation was ordered to assist in management. The patient has been in poor health for several months. However, over the last week, he has noticed an increase in his lower extremity edema with weeping blisters and erythema. He has not experience PND or orthopnea. However, he admits to noncompliance with a low-salt diet. The patient follows closely in the CHF Clinic with Monique Hi PA-C. The patient does follow daily weights and sliding-scale diuretics. His previously noted dry weight was 195 lb. He typically takes Bumex 1 mg, 2 tablets b.i.d.. The patient explained a weighed 196 lb yesterday morning. The patient was hospitalized on April 09 of this year a non ST elevation DE respiratory distress requiring mechanical ventilation. His troponin peaked at 28. The patient was not felt to be amenable to cardiac catheterization or bypass surgery as he had been diagnosed with inoperable disease previously. The patient was originally diagnosed with nonischemic cardiomyopathy back in 1980 related to alcohol and cocaine use. He was also diagnosed with significant coronary artery disease. His most recent cardiac catheterization was performed in February 2017 revealing a 90% ostial left main, 70% distal left main, 60% ostial LAD, and a 70% 1st diagonal branch. He was turned down for bypass surgery by [facility]. The patient does have a biventricular ICD. This is a [employer] device and was exchanged in July 2017. The patient does have bilateral renal cell carcinoma. He is followed closely by Dr. Miguel. His medications reviewed in detail. He Has discontinued his Entresto due to significant hypotension. Past medical and surgical history 1. Inoperable coronary artery disease[place] [facility] [place] 2. Cardiomyopathy-20%-1980 and April 2020 3. Chronic systolic CHF 4. Chronic stable angina pectoris 5. Severe mitral regurgitation-April 2020 6. Nonsustained ventricular tachycardia-amiodarone and mexiletine 7. Biventricular ICD-[employer], July 2017 8. Hypertension 9. Hypercholesterolemia 10. Diabetes mellitus 11. COPD 12. Chronic renal failure 13. Obstructive sleep apnea 14. Hepatitis-C 15. 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 Review of systems A 10 point review systems was negative except for that described above. Allergies Allergy/AdvReac Type Severity Reaction Status Date / Time budesonide Allergy Unknown TACHYCARDIA, Verified 05/12/20 18:29 SOB carbamazepine Allergy Unknown TACHYCARDIA, Verified 05/12/20 18:29 PANIC ATTACK cyclobenzaprine Allergy Unknown UNK Verified 05/12/20 18:29 doxycycline Allergy Unknown ABD PAIN Verified 05/12/20 18:29 fluticasone Allergy Unknown UNK Verified 05/12/20 18:29 formoterol Allergy Unknown TACHYCARDIA, Verified 05/12/20 18:29 SOB salmeterol Allergy Unknown ANAPHYLAXIS Verified 05/12/20 18:29 morphine Allergy Unknown Verified 05/12/20 18:29 tiotropium Allergy Unknown Verified 05/12/20 18:29 [From Spiriva with [employer]] digoxin AdvReac Unknown BACK AND Verified 05/12/20 18:29 STOMACH PAIN metformin AdvReac Unknown MUSCLE Verified 05/12/20 18:29 ACHES IN BVACK AND KIDNEYS Sodium Propionate Allergy Unknown SHORTNESS Uncoded 05/12/20 18:29 OF BREATH Home Medications Home Medications Medication Instructions Recorded Confirmed Type amiodarone 200 mg PO DAILY 07/22/19 05/12/20 History aspirin [Ecotrin Low Strength] 81 mg PO DAILY 07/22/19 05/12/20 History nitroglycerin 0.4 mg SUBLINGUAL Q5M PRN 07/22/19 05/12/20 History cholecalciferol (vitamin D3) 25 1,000 units PO DAILY tab 11/05/19 05/12/20 History mcg (1,000 unit) tablet coenzyme Q10 100 mg capsule 200 mg PO DAILY cap 11/05/19 05/12/20 History fluticasone propionate 50 2 sprays INTRANASAL DAILY ml 11/05/19 05/12/20 History mcg/actuation nasal spray,suspension isosorbide mononitrate 30 mg 30 mg PO QAM #90 tab 11/05/19 05/12/20 Rx tablet,extended release 24 hr nystatin 100,000 unit/gram topical 1 appln TOP BID #15 gm 11/05/19 05/12/20 Rx cream triamcinolone acetonide 0.1 % 1 appln TOP TID 11/05/19 05/12/20 History topical cream psyllium 1 tbs PO TID gm 01/23/20 05/12/20 History ammonium lactate 12 % lotion 1 appln TOP DAILY PRN #227 gm 02/25/20 05/12/20 Rx metolazone 2.5 mg PO DAILY PRN #10 tab 03/25/20 05/12/20 Rx potassium chloride 20 meq PO DAILY PRN #10 tab 03/25/20 05/12/20 Rx glimepiride 2 mg tablet 2 mg PO DAILY #90 tab 04/08/20 05/12/20 Rx carvedilol 25 mg PO BID #540 tab 04/13/20 05/12/20 Rx ipratropium 0.5 mg-albuterol 3 mg 3 ml INH Q6H PRN #360 ml 04/16/20 05/12/20 Rx (2.5 mg base)/3 mL nebulization soln tramadol 50 mg tablet 50 mg PO Q6H PRN #30 tab 04/23/20 05/12/20 Rx clopidogrel 75 mg tablet 75 mg PO DAILY #90 tab 05/04/20 05/12/20 Rx mexiletine 150 mg capsule 150 mg PO BID #180 cap 05/04/20 05/12/20 Rx pantoprazole 40 mg tablet,delayed 40 mg PO QAM #90 tab 05/04/20 05/12/20 Rx release Bifidobacterium infantis 4 mg PO DAILY 05/12/20 05/12/20 History bumetanide 2 mg PO QAM 05/12/20 05/12/20 History levalbuterol tartrate 2 puff INHALATION Q6H PRN 05/12/20 05/12/20 History levothyroxine 50 mcg PO QAM 05/12/20 05/12/20 History Patient History Medical History Afib (Chronic) Allergic rhinitis (Acute) Asthma (Acute) Cervical radiculopathy (Acute) Chronic systolic heart failure COPD (chronic obstructive pulmonary disease) Coronary artery disease Degenerative cervical disc Diabetes mellitus, type 2 Dyslipidemia Hepatitis C History of ventricular tachycardia Hypertension Impotence, organic Ischemic cardiomyopathy EF 20% December 2019 Nephrolithiasis Obesity Obstructive sleep apnea of adult Osteoarthritis Peripheral neuropathy Renal mass Respiratory failure (03/23/20) Stage III chronic kidney disease Vitamin D deficiency (Chronic) Surgical History History of coronary artery stent placement ICD (implantable cardioverter-defibrillator) in place (07/2017) [employer] biventricular ICD Family History Unknown Cardiac disorder Hypertension Diabetes Father Myocardial infarction Mother Myocardial infarction Denies family history of Ovarian cancer Prostate cancer Breast cancer Colorectal cancer Social History Preferred Language: [place] Communication Ability: Effective Visual Impairment: No Limitations Hearing Ability: Normal Sr Account Executive Required: No Beliefs That Will Affect Care: None marital status: Current Living Situation: Spouse Current Living Situation Comment: with & son current occupational status: retired Feels Safe at Home: Yes Safety Concerns: Feels Safe At This Time Smoking Status: Never smoker Tobacco Type: cigarettes ; Age Quit Using Tobacco: 51 ; packs per day: 2 ; Hx Alcohol Use: No Hx Substance Use: No caffeine: No Dental Care, Regularly: No Physical Activity Frequency: 5-6 Times per Week Physical Activity Frequency Comment: walking Seatbelt Use: always Sunscreen Use: No Physical Exam Physical Exam: In general is well-developed well-nourished white male no acute distress. HEENT exam is negative. Neck is supple with full carotid upstrokes. No carotid bruits. Jugular venous pressure is 8 cm of water at 90. No thyromegaly. Cardiovascular exam reveals regular rhythm with distant heart sounds. No obvious murmurs. No S3. Chest reveals a palpable device in the left subclavicular region. Lungs noted bibasilar crackles.. Abdomen is obese without bruits. Extremities reveal 1 to 2+ pitting edema to the knees bilaterally. Some mild erythema is noted. There several weeping blisters. Results & Data ([facility]) Vital Signs (Past 12 Hours) Vital Signs Temp Pulse Pulse Pulse Resp BP BP 05/13/20 11:12 64 18 102/65 05/13/20 07:22 68 05/13/20 07:10 61 18 102/54 L 05/13/20 06:02 88 05/13/20 03:22 36.5 C 66 20 103/69 05/13/20 02:30 36.5 C 75 18 93/65 L 05/13/20 01:40 75 18 103/68 05/13/20 01:09 67 17 94/64 L Pulse Ox 05/13/20 11:12 95 05/13/20 07:22 05/13/20 07:10 98 05/13/20 06:02 05/13/20 03:22 97 05/13/20 02:30 92 05/13/20 01:40 94 05/13/20 01:09 93 Laboratory Results CBC notes a hemoglobin of 12.1, hematocrit 30.7, white count 7.04, a platelet count of 150134. Electrolytes notice sodium of 134, potassium 3.9, chloride 99, bicarb 24, BUN 64, creatinine 2.91, glucose of 66. BNP is elevated 18,854. Troponin I levels undetectable less than 0.015. Echocardiogram performed on April 29 noted severe left ventricular dysfunction with an ejection fraction of less than 20%. There was severe mitral regurgitation. Diagnostic Findings EKG notes atrial sensing and biventricular pacing. Chest x-ray notes cardiomegaly and mild congestive changes. PG Care Time/CCT Total # of Minutes Spent Total Time Spent with Patient: Total time spent is greater than 50% in coordination of care (as documented) at patient's floor/unit and/or counseling patient: Coding Level of Care Code 73624 Initial Inpt Care Lvl 3 Diagnoses Acute systolic (congestive) heart failure I50.21 Ischemic cardiomyopathy I25.5 Mitral regurgitation I34.0 ICD (implantable cardioverter-defibrillator) in place Z95.810
--- NOTE | 2020-05-13 16:29 | Electrocardiogram Report ---
Test Reason : Blood Pressure : / mmHG Vent. Rate : 064 BPM Atrial Rate : 063 BPM P-R Int : 000 ms QRS Dur : 194 ms QT Int : 556 ms P-R-T Axes : 000 -75 037 degrees QTc Int : 573 ms Atrial-sensed ventricular-paced rhythm Abnormal ECG When compared with ECG of 10-APR-2020 02:38, Vent. rate has increased BY 4 BPM Atrial pacing is no longer present Confirmed by Meir Levin ([id number]) on 05/13/2020 4:29:26 PM Referred By: REFERRED SELF Confirmed By:Meir Levin
--- NOTE | 2020-05-13 17:03 | Billing Data ---
Date of Service May 13, 2020 Coding Level of Care Code 17651 Subseq Hosp Care Lvl 3
[2020-05-13] MEDS: LIDOCAINE 5% 1 PATCH TD SCH (17:11)
[2020-05-13] MEDS: cephALEXin 250 MG CAP PO SCH ×2 (17:13→23:28)
[2020-05-13] MEDS: ACETAMINOPHEN 325 MG TAB PO PRN (20:45)
[2020-05-14] MEDS: TRAMADOL HCL 50 MG TABLET PO PRN ×4 (02:10→22:53)
--- NOTE | 2020-05-14 04:32 | Billing Data ---
Date of Service May 14, 2020 Coding Level of Care Code 22248 Initial Inpt Care Lvl 3
[2020-05-14] MEDS: LEVOTHYROXINE SODIUM 50 MCG TABLET PO SCH (05:40)
[2020-05-14 05:57] LABS: INR 1.3 (0.9-1.1); Prothrombin Time 13.8 Seconds (9.0-12.0)
[2020-05-14 06:21] LABS: Calcium 8.5 mg/dl (8.5-10.1); Creatinine Clr Calc Pharmacy 28.6 ml/min; Est GFR (African American) 26.8; Est GFR (Non-African American) 23.1; Potassium 3.9 mmol/L (3.5-5.1)
[2020-05-14] MEDS: ALBUT/IPRATROP 3MG/0.5MG NEB 3 ML VIAL INH PRN ×2 (08:40→19:03)
[2020-05-14] MEDS: INSULIN ASPART 100 UNITS/ML 3 ML PEN SC SCH ×4 (08:57→21:07)
[2020-05-14] MEDS: BUMETANIDE 2 MG in SYRINGE 0 ML IV SCH ×2 (08:58→16:10)
[2020-05-14] MEDS: carvediloL 25 MG TAB PO SCH ×2 (08:59→21:06)
[2020-05-14] MEDS: AMIODARONE 200 MG TAB PO SCH (08:59)
[2020-05-14] MEDS: ASPIRIN 81 MG ECTAB PO SCH (08:59)
[2020-05-14] MEDS: ISOSORBIDE MONO EXTENDED REL 30 MG TABCR PO SCH (09:00)
[2020-05-14] MEDS: LIDOCAINE 5% 1 PATCH TD SCH ×2 (09:00→11:34)
[2020-05-14] MEDS: HEPARIN SOD 5,000 UNIT/0.5 ML VIAL SQ SCH ×2 (09:00→21:07)
[2020-05-14] MEDS: cephALEXin 250 MG CAP PO SCH ×2 (09:00→16:09)
[2020-05-14] MEDS: PANTOprazole 40 MG TAB PO SCH (09:01)
[2020-05-14] MEDS: MEXILETINE HCL 150 MG CAPSULE PO SCH ×2 (09:01→21:05)
[2020-05-14] MEDS: CLOPIDOGREL BISULFATE 75 MG TAB PO SCH (09:01)
[2020-05-14] MEDS ORDERED: NURSING DECISION MEDICATION ONE (09:44)
[2020-05-14] MEDS ORDERED: SODIUM CHLORIDE 0.65% NA SOLN 45 ML (OCEAN) PRN (09:45)
--- NOTE | 2020-05-14 10:14 | Pharmacy Report ---
Pharmacy Glycemic Short Note 2 - Date of Service May 14, 2020 - Glycemic Short BSG Results (Last 24 hours): 05/13/20 05/13/20 05/13/20 11:41 16:29 20:18 Glucose POC Glucose 138 H 166 H 171 H 05/14/20 05/14/20 05:22 07:57 Glucose 124 H POC Glucose 123 H OUTPATIENT ANTIDIABETIC REGIMEN: * Glimepiride 2 mg PO daily * A1c = 6.2% from 04/23/20 * This is down from 7.3% in December 2019 * However, this result is likely somewhat unreliable in CKD patients d/t interactions between the A1c analyzing technique and high levels of urea, reduced RBC life span, iron deficiency anemia. HbA1c > 7.5% in CKD patient may overestimate the extent of hyperglycemia ASSESSMENT: 05/14: * Started on Keflex for possible cellulitis * Received 4 units of insulin yesterday, all bolus * BSGs ranged 91 - 171 mg/dL * Noticed an upward trend in post-prandial BSGs throughout the day yesterday. Will tighten novolog parameters today to account for this as patient's PO intake begins to improve. * Fasting BSG this AM was 123 mg/dL. No basal insulin required. 05/13: * 64 yo M admitted secondary to lower extremity edema/HF exacerbation * PMHx significant for HTN, HLD, T2DM, CKD-III (baseline SCr 1.8-2.0), HFrEF (EF 20%), COPD * Most recent A1c demonstrated excellent outpatient control of T2DM on glimepiride monotherapy; however, this result may not be reliable secondary to patient's history of CKD. * Admission BSG was 110 mg/dL, overnight it was 91 mg/dL and random BSG this AM was 66 mg/dL. Of note, the patient does have acute on chronic renal insufficiency with SCr of 2.9 this AM. He has not eaten since being admitted. * Given BSGs below goal this AM, will add a loose CF/CR based on weight and stress of ~ 1. No basal insulin required as of now. PLAN FOR INPATIENT GLYCEMIC CONTROL: * Hold outpatient oral diabetes medications * Basal insulin - None * Bolus insulin - tightened * NovoLog per scale ACHS or Q6hrs while NPO * Goal Range: Low 110 mg/dL - High 140 mg/dL * Correction Factor: 30 mg/dL/unit * Nutritional / Prandial insulin per carb ratio of 1 unit per 10 grams CHO consumed PLAN FOR DISCHARGE: * A1c = 6.2%. Recommend continuing Glimepiride monotherapy upon discharge.
[2020-05-14] MEDS: ACETAMINOPHEN 325 MG TAB PO PRN ×3 (11:34→21:04)
--- NOTE | 2020-05-14 11:42 | Cardiology Progress Note ---
Date of Service May 14, 2020 Assessment & Plan (1) Acute systolic (congestive) heart failure: -improving. -continue IV Bumex. -continue carvedilol and Imdur. -the patient self discontinued Entresto. (2) Ischemic cardiomyopathy: -severe left ventricular dysfunction with EF <20%. -poor prognosis. (3) Mitral regurgitation: -severe mitral regurgitation noted on his most recent echocardiogram. -poor prognosis. (4) ICD (implantable cardioverter-defibrillator) in place: -normal function at time of device interrogation April 21, 2020. Admission and Anticipated Discharge Date Admission Date: May 13, 2020 Subjective The patient is resting comfortably in bed without complaints of chest pain or dyspnea. Discomfort in his lower extremities has improved. Physical Exam Physical Exam: In general is well-developed well-nourished white male no acute distress. HEENT exam is negative. Neck is supple with full carotid upstrokes. No carotid bruits. Jugular venous pressure is 5 cm of water at 90. No thyromegaly. Cardiovascular exam reveals regular rhythm with distant heart sounds. No obvious murmurs. No S3. Chest reveals a palpable device in the left subclavicular region. Lungs noted bibasilar crackles.. Abdomen is obese without bruits. Extremities reveal trace pitting edema to the knees bilaterally. Diffuse exco riations noted. Results & Data ([facility]) Vital Signs (Past 12 Hours) Vital Signs Temp Pulse Pulse Pulse Resp BP Pulse Ox 05/14/20 08:41 71 19 96 05/14/20 08:00 36.4 C L 66 80 18 97/62 L 96 05/14/20 06:05 63 05/14/20 03:31 36.5 C 63 19 87/63 L 96 05/13/20 23:40 36.5 C 63 19 97/58 L 99 PG Care Time/CCT Total # of Minutes Spent Total Time Spent with Patient: Total time spent is greater than 50% in coordination of care (as documented) at patient's floor/unit and/or counseling patient: Coding Level of Care Code 98985 Subseq Hosp Care Lvl 3 Diagnoses Acute systolic (congestive) heart failure I50.21 Ischemic cardiomyopathy I25.5 Mitral regurgitation I34.0 ICD (implantable cardioverter-defibrillator) in place Z95.810
--- NOTE | 2020-05-14 15:29 | Hospitalist Progress Note ---
Date of Service May 14, 2020 Assessment & Plan (1) CHF (congestive heart failure): Patient is a 64 yo gentleman here for progressive LE edema secondary to CHF exacerbation. He has had several recent hospital admissions for CHF exacerbations that involved decompensation to respiratory failure requiring intubation and mechanical ventilation. - diuresis ongoing; convert back to oral Bumex dosing (per cardiology) - breathing well; symptoms are indicative of right sided HF - continue carvedilol and imdur - BMPs daily - cardiology following, appreciate recs - patient is end stage and would benefit from a heart transplant but is unfortunately not a candidate due to bilateral renal cell carcinoma. Patient has met with palliative care in the past and has completed a POLST form. (2) Ischemic cardiomyopathy: -severe left ventricular dysfunction with ejection fraction of less than 20%. (3) Cellulitis: - R LE area of confluent erythema - tenderness has improved - on Day 2 of Keflex (4) Bilateral edema of lower extremity: - secondary to CHF exacerbation; diuresis as above - overlying erythema of R LE with tenderness is concerning for cellulitis - wound care nurse consulted (5) History of ventricular tachycardia: - continue amiodarone and mexetiline - ICD in place; interrogated 04/21/2020 (6) Vasculitis: - patient had biopsy done as outpatient for lower extremities lesions. 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 - Will administer one dose of IV methylprednisone 60mg today, plan to transition to oral prednisone 40mg daily beginning on 05/15 (7) Dyslipidemia: - continue ASA and statin (8) Diabetes mellitus, type 2: - glycemic consult placed on admission (9) COPD (chronic obstructive pulmonary disease): - continue home inhalers (10) Coronary artery disease: - end stage coronary disease - continue dual antiplatelet (11) Renal cell carcinoma of both kidneys: - followed by Dr. Rivera closely Dispo: Med/Surg Diet: Heart healthy, Low sodium, DM II DVT: Heparin SQ Code: DNR/DNI Admission and Anticipated Discharge Date Admission Date: May 13, 2020 Supervising Physician Co-Signing Physician Notes I personally examined the patient and verified all couch points of history and exam, discussed case, and agree with decision making with Dr Reyes. legs feeling maybe a little bettter but still hurt. breathing fine. swelling about the same. pathology report (communicated to be from cardiology who was able to access results) did show vasculitis vitals noted nad heent nc at mmm. skin/ext - b/l LE w diffuse purpuric lesions R ankle w dressed ulceration and surrounding tender erythema better than yesterday. L knee anterior to kneecap small area of erythema and tenderness (less than yesterday though) still no fluctuance and no knee erythema around joint acute on chronic hypoxic respiratory failure related to essentially end stage systolic CHF (HFrEF) - see cardiology notes in regards to med managements tried and failed, for now continue current meds and supportive care, does appear stable in this respect vasculitis - since path (+) and legs really hurting -- start steroids, outpt f/u for ongoing w/u and management as long as improves. while corticosteroids don't usually have mineralocorticoid effect, given how brittle his CHF is, will want to follow closely to ensure steroids don't have adverse effect on him RLE cellulitis centering around ulcer - cover w 1st gen cephalosporin, follow closely - improving. L knee erythema - etiology not clear. most c/w cellulitis except for distribution (abx as above would cover for this), not c/w gout or prepatellar bursitis given lack of effusions, ?related to possible vasculitis somehow - maybe improved a little w abx, will follow for improvement with steroids. continue topical lidocaine. otherwise as above Subjective No acute events overnight. Swelling and discomfort in b/l legs has improved. Review of Systems Review of Systems: All systems reviewed & are unremarkable except as noted in HPI & below Physical Exam Constitutional: WD/WN, vitals as above Eyes: + anicteric sclerae ENMT: external ear and nose normal, oropharynx normal Neck: normal visual inspection and trachea midline Respiratory: normal respiratory effort, lungs clear to auscultation normal respiratory effort Auscultation: + crackles Cardiovascular: Rate/Rhythm: regular rate and regular rhythm Heart Sounds: normal S1 and normal S2 Vessels: + JVD (elevated) Extremities: + pedal edema (improved from exam on admisison) Skin: + erythema (R LE, no warmth, + tender) + purpura scattered on b/l LE + wounds with badnages applied Psychiatric: A+Ox3, euthymic affect Results & Data Results & Data ([facility]) Vital Signs (Past 12 Hours) Vital Signs Temp Pulse Pulse Pulse Resp BP Pulse Ox 05/14/20 12:00 67 18 95/61 L 97 05/14/20 08:41 71 19 96 05/14/20 08:00 36.4 C L 66 80 18 97/62 L 96 05/14/20 06:05 63 05/14/20 03:31 36.5 C 63 19 87/63 L 96 Resident Activity Tracking Resident Involvement: Resident Care Provided Care Provided: Adult Hospital Medicine (1) Coronary artery disease Associated angina: without angina Coronary Disease-Associated Artery/Lesion type: [place] artery [place] vs. transplanted heart: [place] heart Qualified Code(s): I25.10 - Atherosclerotic heart disease of [place] coronary artery without angina pectoris (2) CHF (congestive heart failure) Heart failure chronicity: acute on chronic Heart failure type: unspecified Qualified Code(s): I50.9 - Heart failure, unspecified
[2020-05-14] MEDS ORDERED: methylPREDNISolone 60 MG in SYRINGE 0 ML IV ONE (17:15)
--- NOTE | 2020-05-14 18:08 | Billing Data ---
Date of Service May 14, 2020 Coding Level of Care Code 59632 Subseq Hosp Care Lvl 3
[2020-05-15] MEDS: cephALEXin 250 MG CAP PO SCH ×3 (00:12→17:27)
[2020-05-15] MEDS: LEVOTHYROXINE SODIUM 50 MCG TABLET PO SCH (06:00)
[2020-05-15 06:52] LABS: BUN Creatinine Ratio 25.7 (10-20); Calcium 8.7 mg/dl (8.5-10.1); Creatinine Clr Calc Pharmacy 29.1 ml/min; Est GFR (African American) 27.4; Est GFR (Non-African American) 23.6; Potassium 4.5 mmol/L (3.5-5.1)
[2020-05-15] MEDS: ALBUT/IPRATROP 3MG/0.5MG NEB 3 ML VIAL INH PRN ×2 (08:06→19:23)
[2020-05-15] MEDS ORDERED: INSULIN HUMAN NPH SC SCH (09:00)
[2020-05-15] MEDS: predniSONE 20 MG TAB PO SCH (09:06)
[2020-05-15] MEDS: ASPIRIN 81 MG ECTAB PO SCH (09:06)
[2020-05-15] MEDS: HEPARIN SOD 5,000 UNIT/0.5 ML VIAL SQ SCH ×2 (09:06→20:47)
[2020-05-15] MEDS: CLOPIDOGREL BISULFATE 75 MG TAB PO SCH (09:06)
[2020-05-15] MEDS: PANTOprazole 40 MG TAB PO SCH (09:06)
[2020-05-15] MEDS: LIDOCAINE 5% 1 PATCH TD SCH ×2 (09:07)
[2020-05-15] MEDS: MEXILETINE HCL 150 MG CAPSULE PO SCH ×2 (09:07→20:47)
[2020-05-15] MEDS: INSULIN ASPART 100 UNITS/ML 3 ML PEN SC SCH ×4 (09:12→20:24)
[2020-05-15] MEDS: ISOSORBIDE MONO EXTENDED REL 30 MG TABCR PO SCH (09:16)
[2020-05-15] MEDS: AMIODARONE 200 MG TAB PO SCH (09:16)
[2020-05-15] MEDS: carvediloL 25 MG TAB PO SCH ×2 (09:16→20:42)
--- NOTE | 2020-05-15 09:51 | Pharmacy Report ---
Pharmacy Glycemic Short Note 2 - Date of Service May 15, 2020 - Glycemic Short BSG Results (Last 24 hours): 05/14/20 05/14/20 05/14/20 11:49 16:31 20:41 Glucose POC Glucose 183 H 95 161 H 05/15/20 05/15/20 05:52 07:46 Glucose 187 H POC Glucose 202 H OUTPATIENT ANTIDIABETIC REGIMEN: * Glimepiride 2 mg PO daily * A1c = 6.2% from 04/23/20 * This is down from 7.3% in December 2019 * However, this result is likely somewhat unreliable in CKD patients d/t interactions between the A1c analyzing technique and high levels of urea, re duced RBC life span, iron deficiency anemia. HbA1c > 7.5% in CKD patient may overestimate the extent of hyperglycemia ASSESSMENT: 05/15: * Pt received 11 units of insulin 05/14 * 0 units basal + 11 units of bolus * BSGs 95 - 183 mg/dl * BSGs rising/elevated secondary to steroids - patient received one time dose of Solumedrol last evening and starting Prednisone 40mg PO daily today. * NPH insulin is used to counteract the hyperglycemic effect of prednisone. The rationale for this approach is that the pharmacodynamics profile of NPH, with a peak effect of 4-8hrs and duration of action of 12-16hrs, mirrors the pharmacodynamics of prednisone. NPH should be dosed at the same time that prednisone is given * The dose of NPH given is dependent on the steroid dose given * For doses of prednisone 40mg/day or above NPH dose should be 0.4 units/kg; however, will start slightly more conservatively since BSGs did not react severely to one time dose of solumedrol last evening * Typically, patients will also need rapid-acting insulin with meals - will continue ordered CF/CR and titrate based on BSG trends. PLAN FOR INPATIENT GLYCEMIC CONTROL: * Hold outpatient oral diabetes medications * Basal insulin - None * Steroid induced hyperglycemia * NPH 18 units (0.9 units/kg) Sq daily with prednisone administration * Bolus insulin - no change * NovoLog per scale ACHS or Q6hrs while NPO * Goal Range: Low 110 mg/dL - High 140 mg/dL * Correction Factor: 30 mg/dL/unit * Nutritional / Prandial insulin per carb ratio of 1 unit per 10 grams CHO consumed PLAN FOR DISCHARGE: * A1c = 6.2%. Recommend continuing Glimepiride monotherapy upon discharge. May need additional considerations if patient is discharged on significant steroid taper
[2020-05-15] MEDS: BUMETANIDE 1 MG TAB PO SCH (10:28)
[2020-05-15] MEDS: ACETAMINOPHEN 325 MG TAB PO PRN ×2 (14:25→20:55)
--- NOTE | 2020-05-15 16:21 | Hospitalist Progress Note ---
Date of Service May 15, 2020 Assessment & Plan (1) Vasculitis: started steroids yesterday, ongoing today - hopefully the mild improvement in his pain is a start of improvement - continue steroids and follow for now -outpt w/u for etiology, outpt ongoing management -continue steroids for now --> if fails to show reasonable improvement over next 24-48hrs then might need to cosnult rheumatology inpatient - otherwise will have f/u as outpt -seems to likely be the biggest reasonf ro pain/swelling - pt notes it's been going on for about a month, and swelling/pain/worse ability to walk from pain and swelling has been during that time frame as well (2) Cellulitis: R ankle - improving. appears to have been from open ulcer from edema. continue 1st gen ceph. (3) Bilateral edema of lower extremity: seems to be predominantly from vasculitis and likely venous stasis. right now CHF does not appear to be decompensated (4) CHF (congestive heart failure): HFrEF / chronic systolic CHF -fortunately stable / probably around baseline -unfortunately quite severe (5) Ischemic cardiomyopathy: (6) History of ventricular tachycardia: (7) Dyslipidemia: (8) Diabetes mellitus, type 2: sugars overall acceptable given situation (9) COPD (chronic obstructive pulmonary disease): (10) Coronary artery disease: (11) Renal cell carcinoma of both kidneys: (12) DVT prophylaxis: heparin SQ (13) Discharge planning issues: goal is home - need improvement in pain/improvement in mobility. hopefully outpt PT. PT/OT eval and treat (14) CKD (chronic kidney disease) stage 3, GFR 30-59 ml/min: stage 3-4. continue to follow w diuresis. Admission and Anticipated Discharge Date Admission Date: May 13, 2020 Subjective legs still hurt - but maybe feel a litlte better than before. still hurts to walk on / cant really put pressure on, but ipmroved a little probably. breathin g is the same as yesterday - more or less at baseline. wonders about therapy once he's out of the hospital Review of Systems Review of Systems: All systems reviewed & are unremarkable except as noted in HPI & below Physical Exam Physical Exam: gen aao pleasant nad heent nc at mmm breathing unlabored no accessory muscles good effort skin/ext shows ongoing b/l LE purpuric type changes, R ankle erythema fading into small patch of petechiae, less tender. L prepatellar skin still mildly erythematous and quite tender, although a little less than yesterday Results & Data Results & Data ([facility]) Vital Signs (Past 12 Hours) Vital Signs Temp Pulse Pulse Resp BP BP Pulse Ox 05/15/20 15:47 72 05/15/20 15:11 97.5 F L 67 20 104/74 92 05/15/20 11:14 97.7 F 68 18 98/72 L 95 05/15/20 09:15 71 100/66 05/15/20 08:06 73 18 97 05/15/20 07:53 65 05/15/20 07:14 97.5 F L 69 18 94/60 L 92 PG Care Time/CCT Total # of Minutes Spent Total Time Spent with Patient: Total time spent is greater than 50% in coordination of care (as documented) at patient's floor/unit and/or counseling patient: Coding Level of Care Code 74402 Subseq Hosp Care Lvl 3 Diagnoses Vasculitis I77.6 Cellulitis L03.90 Bilateral edema of lower extremity R60.0 CHF (congestive heart failure) I50.9 Heart failure chronicity: acute on chronic Heart failure type: unspecified Ischemic cardiomyopathy I25.5 History of ventricular tachycardia Z86.79 Dyslipidemia E78.5 Diabetes mellitus, type 2 E11.9 COPD (chronic obstructive pulmonary disease) J44.9 Coronary artery disease I25.10 Coronary Disease-Associated Artery/Lesion type: [place] artery [place] vs. transplanted heart: [place] heart Associated angina: without angina Renal cell carcinoma of both kidneys C64.1; C64.2 DVT prophylaxis Z29.9 Discharge planning issues Z02.9 CKD (chronic kidney disease) stage 3, GFR 30-59 ml/min N18.3 (1) CHF (congestive heart failure) Heart failure chronicity: acute on chronic Heart failure type: unspecified Qualified Code(s): I50.9 - Heart failure, unspecified (2) Coronary artery disease Coronary Disease-Associated Artery/Lesion type: [place] artery [place] vs. transplanted heart: [place] heart Associated angina: without angina Qualified Code(s): I25.10 - Atherosclerotic heart disease of [place] coronary artery without angina pectoris
[2020-05-15] MEDS: TRAMADOL HCL 50 MG TABLET PO PRN (20:45)
[2020-05-16] MEDS: cephALEXin 250 MG CAP PO SCH ×3 (00:56→16:47)
[2020-05-16] MEDS: ACETAMINOPHEN 325 MG TAB PO PRN ×2 (00:57→18:51)
[2020-05-16] MEDS: ALBUT/IPRATROP 3MG/0.5MG NEB 3 ML VIAL INH PRN ×4 (01:09→19:40)
[2020-05-16] MEDS: TRAMADOL HCL 50 MG TABLET PO PRN ×3 (03:10→20:31)
[2020-05-16] MEDS: LEVOTHYROXINE SODIUM 50 MCG TABLET PO SCH (05:51)
[2020-05-16 06:35] LABS: BUN Creatinine Ratio 25.3 (10-20); Creatinine Clr Calc Pharmacy 23.9 ml/min; Est GFR (African American) 21.4; Est GFR (Non-African American) 18.4; Potassium 4.9 mmol/L (3.5-5.1)
--- NOTE | 2020-05-16 08:53 | Pharmacy Report ---
Pharmacy Glycemic Short Note 2 - Date of Service May 16, 2020 - Glycemic Short BSG Results (Last 24 hours): 05/15/20 05/15/20 05/15/20 11:54 16:27 20:16 Glucose POC Glucose 171 H 205 H 140 H 05/16/20 05/16/20 05:38 07:44 Glucose 144 H POC Glucose 298 H OUTPATIENT ANTIDIABETIC REGIMEN: * Glimepiride 2 mg PO daily * A1c = 6.2% from 04/23/20 * This is down from 7.3% in December 2019 * However, this result is likely somewhat unreliable in CKD patients d/t interactions between the A1c analyzing technique and high levels of urea, reduced RBC life span, iron deficiency anemia. HbA1c > 7.5% in CKD patient may overestimate the extent of hyperglycemia ASSESSMENT: 05/16: * Pt received 43 units of insulin on 05/15 * 18 units of basal with NPH + 25 units of bolus with NovoLog * BSGs 140-205 mg/dl * Prednisone has caused steroid induced hyperglycemia - covering with NPH + NovoLog * AM fasting GLU just slightly above goal range at 140 mg/dl but POC BSG significantly elevated at 298 mg/dl; unsure if patient had anything to eat between the two values. * Pt received 4 additional units of correctional insulin ---> will add this to NPH dose and increase from 18 to 22 units NPH for prednisone 40mg * Will tighten CF/CR at times when prednisone is peaking (BF, lunch) loosen values for dinner, HS when prednisone is wearing off. 05/15: * Pt received 11 units of insulin 05/14 * 0 units basal + 11 units of bolus * BSGs 95 - 183 mg/dl * BSGs rising/elevated secondary to steroids - patient received one time dose of Solumedrol last evening and starting Prednisone 40mg PO daily today. * NPH insulin is used to counteract the hyperglycemic effect of prednisone. The rationale for this approach is that the pharmacodynamics profile of NPH, with a peak effect of 4-8hrs and duration of action of 12-16hrs, mirrors the pharmacodynamics of prednisone. NPH should be dosed at the same time that prednisone is given * The dose of NPH given is dependent on the steroid dose given * For doses of prednisone 40mg/day or above NPH dose should be 0.4 units/kg; however, will start slightly more conservatively since BSGs did not react severely to one time dose of solumedrol last evening * Typically, patients will also need rapid-acting insulin with meals - will continue ordered CF/CR and titrate based on BSG trends. PLAN FOR INPATIENT GLYCEMIC CONTROL: * Hold outpatient oral diabetes medications * Basal insulin - None * Steroid induced hyperglycemia * increase NPH 22 units (0.9 units/kg) Sq daily with prednisone administration * Bolus insulin - tighten for BF, lunch * NovoLog per scale Breakfast & lunch * Goal Range: Low 110 mg/dL - High 140 mg/dL * Correction Factor: 20 mg/dL/unit * Nutritional / Prandial insulin per carb ratio of 1 unit per 7 grams CHO consumed * NovoLog per scale Dinner & HS * Goal Range: Low 110 mg/dL - High 140 mg/dL * Correction Factor: 35 mg/dL/unit * Nutritional / Prandial insulin per carb ratio of 1 unit per 9 grams CHO consumed PLAN FOR DISCHARGE: * A1c = 6.2%. Recommend continuing Glimepiride monotherapy upon discharge. May need additional considerations if patient is discharged on significant steroid taper
[2020-05-16] MEDS ORDERED: INSULIN HUMAN NPH SC SCH ×3 (09:00)
[2020-05-16] MEDS: INSULIN ASPART 100 UNITS/ML 3 ML PEN SC SCH ×4 (09:02→20:34)
[2020-05-16] MEDS: AMIODARONE 200 MG TAB PO SCH (09:04)
[2020-05-16] MEDS: carvediloL 25 MG TAB PO SCH ×2 (09:04→20:31)
[2020-05-16] MEDS: ASPIRIN 81 MG ECTAB PO SCH (09:05)
[2020-05-16] MEDS: HEPARIN SOD 5,000 UNIT/0.5 ML VIAL SQ SCH ×2 (09:05→20:32)
[2020-05-16] MEDS: ISOSORBIDE MONO EXTENDED REL 30 MG TABCR PO SCH (09:05)
[2020-05-16] MEDS: LIDOCAINE 5% 1 PATCH TD SCH ×2 (09:06)
[2020-05-16] MEDS: MEXILETINE HCL 150 MG CAPSULE PO SCH ×2 (09:06→20:31)
[2020-05-16] MEDS: predniSONE 20 MG TAB PO SCH (09:08)
[2020-05-16] MEDS: CLOPIDOGREL BISULFATE 75 MG TAB PO SCH (09:08)
[2020-05-16] MEDS: PANTOprazole 40 MG TAB PO SCH (09:08)
--- NOTE | 2020-05-16 11:43 | Hospitalist Progress Note ---
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 Anticipate slow taper. Will require rheumatology outpatient followup. - R ankle - improving, Suspect 2/2 open ulcer from edema. - Tramadol 50mg PO q6h PRN for pain ART on CKD - Cr elevated to 3.3 from 2.6 - Bumex held - Given brittle balance with CHF with hold additional fluids, follow with diuretic held, and continue to follow PO intake - BMP daily - Avoid nephrotoxins/NSAIDS Bilateral edema of lower extremity: - 2/2 vasculitis and venous stasis - Clinically dry with increased Cr, bumex held CHF with r EF - Stable, prior history of sudden severe decompensation - Clinically dry, bumex held - BMP daily, follow I&Os DM2 - NPH 22u daily + SSI - BSG ac/hs - BMP daily CAD w/ hx NSTEMI, Afib - COntinue BB, ASA, plaavix, isosorbide mononitrate, - MExilitine 150mg PO BID Hypothyroid - Syntrhoid 50mcg daily PPx: Protonix 40, Heparin 5k Q12 Diet: HH, DM Dispo: Progressing towards discharge. Following ART, vasculitis/cellulitis improving. (2) Cellulitis: (3) Renal cell carcinoma of both kidneys: (4) CKD (chronic kidney disease) stage 3, GFR 30-59 ml/min: (5) Mitral regurgitation: (6) CHF (congestive heart failure): (7) Cardiac volume overload: (8) Bilateral edema of lower extremity: (9) NSTEMI (non-ST elevated myocardial infarction): (10) Elevated LFTs: (11) Fever: (12) History of ventricular tachycardia: (13) Acute systolic (congestive) heart failure: Admission and Anticipated Discharge Date Admission Date: May 13, 2020 Subjective Seen at bedside this morning. Feels well, but very thirsty. Feels the pain, swelling, and redness have improved also still had moderate discomfort overnight. No fevers, chills, sweats, shortness or breath, chest pain, or difficulty laying flat overnight. Review of Systems Review of Systems: Constitutional: Denies fever, chills, malaise Eyes: Denies vision change ENT: Denies sore throat and cold like symptoms Cardiovascular: Denies Chest pain, chest pressure, palpitations. Endorses extremity swelling. Respiratory: Denies shortness of breath, cough, sputum production, difficulty breathing Gastrointestinal: Denies abdominal pain, nausea, vomiting, constipation, diarrhea Genitourinary: Denies dysuria Musculoskeletal: Endorses leg aches as noted in subjective Integumentary:Endorses bilateral leg rash. Neurological: Denies headache, focal weakness Physical Exam Physical Exam: General: A&Ox3. NAD. Cooperative. HEENT: Atraumatic, normocephalic. Pulm: CTAB A&P. -wheezes, -rales, -rhonchi. Symmetrical chest rise. No increase work of breathing. No respiratory distress. Cardiac: RRR, -mrg. Radial pulses intact and symmetrical. Abdominal: Nontender, nondistended, soft. BS present. Extremity: Bilateral tender purpuric rash on lower extremities with grade 2-3 ulcerations on feet bilaterally, R>L with R foot and ankle having improving surrounding erythema and warmth compared to prior. PT pulses intact bilat, sensation to soft touch intact in toes and fingers bilaterally, plantar/dorsiflexion 5/5. Results & Data Results & Data ([facility]) Vital Signs (Past 12 Hours) Vital Signs Temp Pulse Pulse Resp BP BP Pulse Ox 05/15/20 08:06 73 18 97 05/15/20 07:53 65 05/15/20 07:14 36.4 C L 69 18 94/60 L 92 05/15/20 03:32 36.4 C L 65 20 95/66 L 96 05/15/20 01:32 78 05/14/20 23:09 35.9 C L 77 20 97/67 L 95 Resident Activity Tracking Resident Involvement: Resident Care Provided Care Provided: Adult Hospital Medicine (1) CHF (congestive heart failure) Heart failure chronicity: acute on chronic Heart failure type: unspecified Qualified Code(s): I50.9 - Heart failure, unspecified
--- NOTE | 2020-05-16 16:58 | Hospitalist Progress Note ---
Date of Service May 16, 2020 Assessment & Plan (1) Vasculitis: started steroids 05/14, is showing a little bit of improvement -outpt w/u for etiology, outpt ongoing management (will need referral to rheumatology) -with ongoing improvement hopefully pain/mobility will be good enough to go home tomorrow -seems to likely be the biggest reason for pain/swelling - pt notes it's been going on for about a month, and swelling/pain/worse ability to walk from pain and swelling has been during that time frame as well (2) Cellulitis: R ankle - improving. appears to have been from open ulcer from edema. continue 1st gen ceph. (3) Renal cell carcinoma of both kidneys: (4) CKD (chronic kidney disease) stage 3, GFR 30-59 ml/min: stage 3-4. continue to follow w diuresis. (increase in creatinine today - hold bumex for today - f/u BMP in AM - given how brittle his CHF is, then would resume as long as creatinine improving at all) (5) Mitral regurgitation: (6) CHF (congestive heart failure): HFrEF / chronic systolic CHF -fortunately stable / probably around baseline for breathing - see above Cr suggests he's probably a little dry today -unfortunately quite severe (7) Cardiac volume overload: (8) Bilateral edema of lower extremity: seems to be predominantly from vasculitis and likely venous stasis. right now CHF does not appear to be decompensated (9) NSTEMI (non-ST elevated myocardial infarction): (10) Elevated LFTs: (11) Fever: (12) History of ventricular tachycardia: (13) Acute systolic (congestive) heart failure: (14) DVT prophylaxis: heparin SQ (15) Discharge planning issues: --> if ongoing pain control/better mobility, from a vasculitis standpoint can go home w outpt rheum f/u tomorrow; from cardiorenal perspective would want to see creatinine improving some again, then would be safe for home/close CHF clinic f/u Admission and Anticipated Discharge Date Admission Date: May 13, 2020 Subjective feeling a little better leg pain a little less able to walk a little better breathing still no worse than normal. does worry about how much stress at home with his son (substance abuse issues) is causing him - asks if i would write a letter than stress would adversely affect his health (in chart under communication note) Review of Systems Review of Systems: All systems reviewed & are unremarkable except as noted in HPI & below Physical Exam Physical Exam: gen aao pleasant nad heent nc at mmm breathing unlabored no accessory muscles good effort skin - clearing erythema R ankle now basically just dull petechiae, area of redness L anterior patellar region fading/nearly gone. diffuse purpuric lesions unchanged, ~1+ edema unchanged, superficial ulcerations dressed, no tracking erythema Results & Data Results & Data ([facility]) Vital Signs (Past 12 Hours) Vital Signs Temp Pulse Pulse Resp BP BP Pulse Ox 05/16/20 15:11 97.7 F 68 19 114/69 97 05/16/20 12:53 73 18 98 05/16/20 11:42 97.9 F 68 18 96/66 L 95 05/16/20 09:15 66 05/16/20 07:38 97.9 F 68 22 108/73 96 05/16/20 07:05 61 16 97 PG Care Time/CCT Total # of Minutes Spent Total Time Spent with Patient: Total time spent is greater than 50% in coordination of care (as documented) at patient's floor/unit and/or counseling patient: Coding Level of Care Code 65733 Subseq Hosp Care Lvl 3 Diagnoses Vasculitis I77.6 Cellulitis L03.90 Renal cell carcinoma of both kidneys C64.1; C64.2 CKD (chronic kidney disease) stage 3, GFR 30-59 ml/min N18.3 Mitral regurgitation I34.0 CHF (congestive heart failure) I50.9 Heart failure chronicity: acute on chronic Heart failure type: unspecified Cardiac volume overload E87.79 Bilateral edema of lower extremity R60.0 NSTEMI (non-ST elevated myocardial infarction) I21.4 Elevated LFTs R79.89 Fever R50.9 History of ventricular tachycardia Z86.79 Acute systolic (congestive) heart failure I50.21 DVT prophylaxis Z29.9 Discharge planning issues Z02.9 (1) CHF (congestive heart failure) Heart failure chronicity: acute on chronic Heart failure type: unspecified Qualified Code(s): I50.9 - Heart failure, unspecified
--- NOTE | 2020-05-16 16:59 | Communication Note ---
Date of Service: May 16, 2020 To Whom It May Concern, Please note that due to his medical conditions, significant emotional stress/duress would have the potential to be seriously averse in impact on the health of Mr Vee. Thank you. Sincerely, Jhonatan Escobar DO
[2020-05-17] MEDS ORDERED: OXYCODONE HCL IR 5 MG TAB (IMMEDIATE RELEASE) PO STA (00:35)
[2020-05-17] MEDS: ACETAMINOPHEN 325 MG TAB PO PRN (00:58)
[2020-05-17] MEDS: cephALEXin 250 MG CAP PO SCH ×3 (00:58→17:35)
[2020-05-17] MEDS: ALBUT/IPRATROP 3MG/0.5MG NEB 3 ML VIAL INH PRN ×3 (03:03→22:10)
[2020-05-17] MEDS: LEVOTHYROXINE SODIUM 50 MCG TABLET PO SCH (05:38)
[2020-05-17 05:56] LABS: Hematocrit (blood only) 40.3 % (42-52); Hemoglobin 12.8 g/dL (14.0-18.0); Immature Granulocytes # (auto) 0.05 K/uL (0.00-0.02); Immature Granulocytes % (auto) 0.4 %; Lymphocytes # (auto) 0.94 K/uL (1.2-3.4); Lymphocytes % (auto) 7.1 %; Mean Corpuscular Hemoglobin 28.4 pg (25-34); Mean Corpuscular Hgb Conc 31.8 g/dL (32-36); Mean Corpuscular Volume 89.4 fL (80-100); Mean Platelet Volume 11.5 fL (7.4-10.4); Monocytes # (auto) 1.28 K/uL (0.11-0.59); Monocytes % (auto) 9.7 %; Neutrophils # (auto) 10.97 K/uL (1.4-6.5); Neutrophils % (auto) 82.8 %; Nucleated RBC # (auto) 0.04 K/uL (0-0); Nucleated RBC % (auto) 0.3 %; Platelet Count 271 K/uL (130-400); RDW Standard Deviation 54.7 fL (36.4-46.3); Red Blood Count 4.51 M/uL (4.7-6.1); White Blood Count 13.24 K/uL (4.8-10.8)
[2020-05-17 06:23] LABS: BUN Creatinine Ratio 26.3 (10-20); Calcium 8.8 mg/dl (8.5-10.1); Creatinine Clr Calc Pharmacy 22.6 ml/min; Est GFR (Non-African American) 17.3; Potassium 5.2 mmol/L (3.5-5.1)
[2020-05-17] MEDS: carvediloL 25 MG TAB PO SCH ×2 (07:54→21:32)
[2020-05-17] MEDS: AMIODARONE 200 MG TAB PO SCH (07:54)
[2020-05-17] MEDS: ISOSORBIDE MONO EXTENDED REL 30 MG TABCR PO SCH (07:55)
[2020-05-17] MEDS: ASPIRIN 81 MG ECTAB PO SCH (07:55)
[2020-05-17] MEDS: HEPARIN SOD 5,000 UNIT/0.5 ML VIAL SQ SCH ×2 (07:55→21:33)
[2020-05-17] MEDS: LIDOCAINE 5% 1 PATCH TD SCH ×2 (07:56)
[2020-05-17] MEDS: predniSONE 20 MG TAB PO SCH (07:57)
[2020-05-17] MEDS: MEXILETINE HCL 150 MG CAPSULE PO SCH ×2 (07:57→21:31)
[2020-05-17] MEDS: PANTOprazole 40 MG TAB PO SCH (07:57)
[2020-05-17] MEDS: CLOPIDOGREL BISULFATE 75 MG TAB PO SCH (07:57)
[2020-05-17] MEDS: INSULIN ASPART 100 UNITS/ML 3 ML PEN SC SCH ×4 (08:00→21:35)
[2020-05-17] MEDS ORDERED: INSULIN HUMAN NPH SC SCH (09:00)
--- NOTE | 2020-05-17 11:59 | Hospitalist Progress Note ---
Date of Service May 17, 2020 Assessment & Plan (1) CHF (congestive heart failure): Patient is a 64 yo gentleman here for progressive LE edema secondary to CHF exacerbation. He has had several recent hospital admissions for CHF exacerbations that involved decompensation to respiratory failure requiring intubation and mechanical ventilation. He has been successfully diuresed, but remains in hospital for acute on chronic kidney injury. - Exacerbation likely sec to noncompliance - Clinically dry; holding Bumex given bump in creatinine - weight increase to 4kg since admission - BMP daily, follow I&Os - continue carvedilol and imdur - cardiology following, appreciate recs - patient is end stage and would benefit from a heart transplant but is unfortunately not a candidate due to bilateral renal cell carcinoma. Patient has met with palliative care in the past and has completed a POLST form. (2) Bilateral edema of lower extremity: - secondary to CHF exacerbation - patient has been diuresed; holding bumex again today given elevation in Cr - wound care nurse consulted (3) Vasculitis: - Bx consistent with bullous vasculitis - Purpuric rash with ulceration on b/l lower extremities - Started steroid tx 05/14, continue prednisone 40mg daily. Anticipate slow taper. Will require rheumatology outpatient followup. - Tramadol 50mg PO q6h PRN for pain (4) Cellulitis: - R LE area of confluent erythema - tenderness has improved, no warmth - continue Keflex (on Day 4 of 5) (5) CKD (chronic kidney disease) stage 3, GFR 30-59 ml/min: - Cr elevated to 3.4, baseline ~ 2 - Bumex held - Given brittle balance with CHF with hold additional fluids, follow with diuretic held, and continue to follow PO intake - BMP daily - Avoid nephrotoxins/NSAIDS (6) Renal cell carcinoma of both kidneys: - followed by Dr. Rivera closely (7) History of ventricular tachycardia: - continue amiodarone and mexetiline - ICD in place; interrogated 04/21/2020 (8) Mitral regurgitation: - noted on echocardiogram (9) Hypothyroid: - Synthroid 50mcg daily (10) Coronary artery disease: - end stage coronary disease - Continue beta juanito, ASA, isosorbide mononitrate (11) Ischemic cardiomyopathy: - ICD in place - continue amiodarone and mexiletine (12) Diabetes mellitus, type 2: - NPH 22u daily + SSI - BSG ac/hs - BMP daily Dispo: Med/Surg Diet: Heart healthy, Low sodium, DM II DVT: Heparin SQ Code: Conditional; DNR, okay with intubation Admission and Anticipated Discharge Date Admission Date: May 13, 2020 Supervising Physician Co-Signing Physician Notes Resident Physician Supervision Note: I independently interviewed and examined the patient and verified the couch history and physical, reviewed labs and image studies, discussed the case with the resident Dr. Reyes and agree with the findings and care plan. Subjective No acute events overnight. Legs still somewhat painful, but feeling better Review of Systems Review of Systems: All systems reviewed & are unremarkable except as noted in HPI & below Physical Exam Constitutional: WD/WN, vitals as above Eyes: + anicteric sclerae ENMT: external ear and nose normal, oropharynx normal Neck: normal visual inspection and trachea midline Respiratory: normal respiratory effort, lungs clear to auscultation normal respiratory effort Auscultation: + crackles (bilateral lung bases) Cardiovascular: Rate/Rhythm: regular rate and regular rhythm Heart Sounds: normal S1 and normal S2 Vessels: + JVD (elevated) Extremities: + pedal edema (+1 to the thigh, bilaterally ) Heart sounds distant. No S3 Gastrointestinal (Abdomen): Inspection/Auscultation: abdomen normal to inspection Skin: + erythema (R LE, no warmth ) and + purpura (scattered over b/l LE) Psychiatric: A+Ox3, euthymic affect Results & Data Results & Data ([facility]) Vital Signs (Past 12 Hours) Vital Signs Pulse Pulse Resp BP BP Pulse Ox 05/17/20 07:59 64 18 96/63 L 97 05/17/20 07:18 67 05/17/20 05:51 68 05/17/20 03:37 67 23 95/63 L 95 05/17/20 03:03 79 18 95 Resident Activity Tracking Resident Involvement: Resident Care Provided Care Provided: Adult Hospital Medicine (1) Coronary artery disease Associated angina: without angina Coronary Disease-Associated Artery/Lesion type: [place] artery [place] vs. transplanted heart: [place] heart Qualified Code(s): I25.10 - Atherosclerotic heart disease of [place] coronary artery without angina pectoris (2) CHF (congestive heart failure) Heart failure chronicity: acute on chronic Heart failure type: unspecified Qualified Code(s): I50.9 - Heart failure, unspecified
--- NOTE | 2020-05-17 13:01 | Cardiology Progress Note ---
Date of Service May 17, 2020 Assessment & Plan (1) Acute systolic (congestive) heart failure: -seems compensated at this time. -continue po Bumex. -continue carvedilol and Imdur. -self discontinued Entresto. (2) Ischemic cardiomyopathy: -severe left ventricular dysfunction with EF <20%. -poor prognosis. (3) Mitral regurgitation: -severe mitral regurgitation noted on his most recent echocardiogram. -poor prognosis. (4) ICD (implantable cardioverter-defibrillator) in place: -normal function at time of device interrogation April 21, 2020. Admission and Anticipated Discharge Date Admission Date: May 13, 2020 Subjective The patient is resting comfortably in bed without complaints of chest pain or dyspnea. Physical Exam Physical Exam: In general is well-developed well-nourished white male no acute distress. HEENT exam is negative. Neck is supple with full carotid upstrokes. No carotid bruits. Jugular venous pressure is 5 cm of water at 90. No thyromegaly. Cardiovascular exam reveals regular rhythm with distant heart sounds. No obvious murmurs. No S3. Chest reveals a palpable device in the left subclavicular region. Lungs are clear without rales, rhonchi, or wheezes. Abdomen is obese without bruits. Extremities reveal trace pitting edema to the knees bilaterally. Diffuse excoriations noted. Results & Data ([facility]) Vital Signs (Past 12 Hours) Vital Signs Temp Pulse Pulse Resp BP BP Pulse Ox 05/17/20 12:20 36.5 C 63 20 90/65 L 98 05/17/20 07:59 64 18 96/63 L 97 05/17/20 07:18 67 05/17/20 05:51 68 05/17/20 03:37 67 23 95/63 L 95 05/17/20 03:03 79 18 95 Diagnostic Findings monitoring tech notes appropriate pacing. PG Care Time/CCT Total # of Minutes Spent Total Time Spent with Patient: Total time spent is greater than 50% in coordination of care (as documented) at patient's floor/unit and/or counseling patient: Coding Level of Care Code 24852 Subseq Hosp Care Lvl 3 Diagnoses Acute systolic (congestive) heart failure I50.21 Ischemic cardiomyopathy I25.5 Mitral regurgitation I34.0 ICD (implantable cardioverter-defibrillator) in place Z95.810
[2020-05-17] MEDS: TRAMADOL HCL 50 MG TABLET PO PRN (21:30)
[2020-05-18] MEDS: ACETAMINOPHEN 325 MG TAB PO PRN ×2 (00:49→13:32)
[2020-05-18] MEDS: cephALEXin 250 MG CAP PO SCH ×2 (00:49→08:49)
[2020-05-18] MEDS: ALBUT/IPRATROP 3MG/0.5MG NEB 3 ML VIAL INH PRN ×3 (03:23→13:17)
[2020-05-18] MEDS: LEVOTHYROXINE SODIUM 50 MCG TABLET PO SCH (06:06)
[2020-05-18 07:27] LABS: BUN Creatinine Ratio 30.2 (10-20); Creatinine Clr Calc Pharmacy 23.8 ml/min; Est GFR (African American) 20.9; Potassium 5.3 mmol/L (3.5-5.1)
[2020-05-18] MEDS: ASPIRIN 81 MG ECTAB PO SCH (08:48)
[2020-05-18] MEDS: AMIODARONE 200 MG TAB PO SCH (08:48)
[2020-05-18] MEDS: ISOSORBIDE MONO EXTENDED REL 30 MG TABCR PO SCH (08:49)
[2020-05-18] MEDS: LIDOCAINE 5% 1 PATCH TD SCH ×2 (08:49→08:50)
[2020-05-18] MEDS: PANTOprazole 40 MG TAB PO SCH (08:50)
[2020-05-18] MEDS: MEXILETINE HCL 150 MG CAPSULE PO SCH (08:50)
[2020-05-18] MEDS: predniSONE 20 MG TAB PO SCH (08:50)
[2020-05-18] MEDS: CLOPIDOGREL BISULFATE 75 MG TAB PO SCH (08:50)
[2020-05-18] MEDS: carvediloL 25 MG TAB PO SCH (08:51)
[2020-05-18] MEDS: BUMETANIDE 1 MG TAB PO SCH (08:51)
[2020-05-18] MEDS: INSULIN ASPART 100 UNITS/ML 3 ML PEN SC SCH ×2 (08:58→12:18)
[2020-05-18] MEDS: HEPARIN SOD 5,000 UNIT/0.5 ML VIAL SQ SCH (08:58)
[2020-05-18] MEDS ORDERED: INSULIN HUMAN NPH SC SCH (09:00)
--- NOTE | 2020-05-18 09:48 | Cardiology Progress Note ---
Date of Service May 18, 2020 Assessment & Plan (1) Acute systolic (congestive) heart failure: -compensated at this time. -continue po Bumex, carvedilol and Imdur. -self discontinued Entresto. (2) Ischemic cardiomyopathy: -severe LV dysfunction with EF <20%. -poor prognosis. (3) Mitral regurgitation: -severe mitral regurgitation noted on his echocardiogram. -poor prognosis. (4) ICD (implantable cardioverter-defibrillator) in place: -normal function at time of interrogation April 21, 2020. Admission and Anticipated Discharge Date Admission Date: May 13, 2020 Subjective The patient is resting comfortably in the bedside chair without complaints of chest pain or dyspnea. Physical Exam Physical Exam: In general is well-developed well-nourished white male no acute distress. HEENT exam is negative. Neck is supple with full carotid upstrokes. No carotid bruits. Jugular venous pressure is 5 cm of water at 90. No thyromegaly. Cardiovascular exam reveals regular rhythm with distant heart sounds. No obvious murmurs. No S3. Chest reveals a palpable device in the left subclavicular region. Lungs are clear without rales, rhonchi, or wheezes. Abdomen is obese without bruits. Extremities reveal trace pitting edema to the knees bilaterally. Diffuse excoriations noted. Results & Data ([facility]) Vital Signs (Past 12 Hours) Vital Signs Temp Pulse Pulse Resp BP Pulse Ox 05/18/20 07:58 36.8 C 63 18 101/68 96 05/18/20 07:19 63 05/18/20 07:02 64 16 98 05/18/20 04:38 36.3 C L 63 18 100/72 98 05/18/20 03:53 66 05/18/20 03:25 67 18 97 05/17/20 23:09 69 18 97/69 L 96 05/17/20 22:11 71 18 97 PG Care Time/CCT Total # of Minutes Spent Total Time Spent with Patient: Total time spent is greater than 50% in coordination of care (as documented) at patient's floor/unit and/or counseling patient: Coding Level of Care Code 56109 Subseq Hosp Care Lvl 3 Diagnoses Acute systolic (congestive) heart failure I50.21 Ischemic cardiomyopathy I25.5 Mitral regurgitation I34.0 ICD (implantable cardioverter-defibrillator) in place Z95.810
--- NOTE | 2020-05-18 12:41 | Discharge Summary ---
Date of Service May 18, 2020 Admission HPI Per Admitting Provider Claudio Vee is a 64 year old male with a pMHx. of HTN, HLD, DM, CKD, HFrEF (EF 20%), severe mitral regurgitation, COPD and refractory ventricular arrhythmias. 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 He has not had increased weight gain, with a dry weight of 195. The swelling is increasing over the last month. He had a biopsy of his left foot and explains that since this time he has had weeping of his leg. He explains there have not been changes in his diet lately. He explains that he did eat hotdogs 2 weeks prior and had worsening of his bruising in his lower legs. He has had increased pain in his legs currently they are 8-9/10 constant pain. He has had to cut his shoes to allow his feet to fit. He had initially seen Dr. Jose, but transitioned to see Dr. Hagan to keep his medical care within one system. He follows with the heart failure program. He had venison today, but tries to avoid eating salt but is not sure how much he eats in a day. He has been sleeping with 0 or 1 pillows. He does have dyspnea or exertion and states he can walk approximately 20 feet when he develops shortness of breath. He is on 2 1/2 L of oxygen at home and 3 1/2 L at night as well as CPAP. He has previously seen Palliative care, and explained that he did not want to see them again during this admission. He brought in his POLST form that he had filled out in the past. Social Hx.: - lives at home with his 2 sons and - approx. 20 pack year smoking history Admission Exam Per Admitting Provider Constitutional: WD/WN, vitals as above Eyes: PERRL, conjunctivae normal, anicteric sclerae ENMT: external ear and nose normal, oropharynx normal Neck: normal visual inspection Respiratory: - no respiratory distress - slight crackles of lungs bilaterally - good air movement - no focal lung findings appreciated Cardiovascular: Rate/Rhythm: regular rate Vessels: no JVD Extremities: + pedal edema (2+ pitting edema above knee bilaterally ) Gastrointestinal (Abdomen): - normal bowel sounds, soft, nontender Skin: - bruising of the lower extremity bilaterally - weeping lower extremity wounds bilaterally, with skin breakdown Psychiatric: A+Ox3, euthymic affect Principal Diagnosis CHF exacerbation Discharge Exam Constitutional WD/WN, vitals as above Eyes + anicteric sclerae ENMT external ear and nose normal, oropharynx normal Neck normal visual inspection and trachea midline Respiratory normal respiratory effort, lungs clear to auscultation normal respiratory effort Auscultation: + crackles (bilateral lung bases) Cardiovascular Rate/Rhythm: regular rate and regular rhythm Heart Sounds: normal S1 and normal S2 Vessels: + JVD (elevated) Extremities: + pedal edema (+1 to the thigh, bilaterally ) Gastrointestinal (Abdomen) Inspection/Auscultation: abdomen normal to inspection Skin + wound (coveraged with bandages placed by wound care nurse), + erythema (R LE, no warmth ) and + purpura (scattered over b/l LE) Psychiatric A+Ox3, euthymic affect Discharge Data Allergies Allergy/AdvReac Type Severity Reaction Status Date / Time budesonide Allergy Unknown TACHYCARDIA, Verified 05/12/20 18:29 SOB carbamazepine Allergy Unknown TACHYCARDIA, Verified 05/12/20 18:29 PANIC ATTACK cyclobenzaprine Allergy Unknown UNK Verified 05/12/20 18:29 doxycycline Allergy Unknown ABD PAIN Verified 05/12/20 18:29 fluticasone Allergy Unknown UNK Verified 05/12/20 18:29 formoterol Allergy Unknown TACHYCARDIA, Verified 05/12/20 18:29 SOB salmeterol Allergy Unknown ANAPHYLAXIS Verified 05/12/20 18:29 morphine Allergy Unknown Verified 05/12/20 18:29 tiotropium Allergy Unknown Verified 05/12/20 18:29 [From Spiriva with HandiHaler] digoxin AdvReac Unknown BACK AND Verified 05/12/20 18:29 STOMACH PAIN metformin AdvReac Unknown MUSCLE Verified 05/12/20 18:29 ACHES IN BVACK AND KIDNEYS Sodium Propionate Allergy Unknown SHORTNESS Uncoded 05/12/20 18:29 OF BREATH Consultations 05/12/20 22:10 ED Decision to Admit Stat 05/13/20 00:09 Consult Cardiology Routine Hospital Course (1) CHF (congestive heart failure): Patient is a 64 yo gentleman admitted for progressive LE edema secondary to CHF exacerbation likely secondary to noncompliance. He has had several recent hospital admissions for CHF exacerbations that involved decompensation to respiratory failure requiring intubation and mechanical ventilation. During this hospitalization his respiratory status was normal. He was successfully diuresed with IV bumex with decrease in weight from 196lb before admission to 192lbs on discharge. Fluid balance was difficult to follow as unable to collect urine sample . Unfortunately his disease is end-stage and although he would benefit from a heart transplant, he is not a candidate due to concurrent bilateral renal cell carcinoma. Patient has met with palliative care in the past and has completed a POLST form. Continue bumex, 2mg, daily, carvediolol 25mg, BID, and imdur 30mg, qAM. A follow up with [facility] Heart Failure team was scheduled for 05/19/20. (2) Bilateral edema of lower extremity: - secondary to CHF exacerbation; improved with dieresis - discomfort thought to be secondary to vasculitis > edema - recommend continued, frequent elevation of legs (3) Vasculitis: Patient had biopsy of purpuric lesions on b/l LE by laboratory assistant as an outpatient. 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 He was started on IV methylprednisolone 60mg before being transitioned to prednisone, 40mg, po, daily. We anticipate a slow taper. Discomfort improved with steroid initiation. An appointment with rheumatology in [facility] was set up for 05/19/20 at 1:00pm. Continue Tramadol 50mg PO q6h PRN for pain. (4) Cellulitis: Patient with confluent area of erythema on R LE on admission. Completed 5 day course of Keflex in hospital. (5) CKD (chronic kidney disease) stage 3, GFR 30-59 ml/min: Patient with acute on chronic kidney injury. Baseline creatinine ~ 2. Cr peaked to 3.4 with IV diuretics, but started to descend by day of discharge. Recommend he avoid nephrotoxins/NSAIDS. Outpatient items to do: repeat BMP in 2-3 days (6) Renal cell carcinoma of both kidneys: - Although this has not been biopsy confirmed, suspicion for the above diagnosis is high. He is followed by Dr. Rivera closely. (7) History of ventricular tachycardia: - continue amiodarone and mexetiline - ICD in place; interrogated 04/21/2020 (8) Mitral regurgitation: - noted on recent echocardiogram (9) Hypothyroid: - continue Synthroid 50mcg daily (10) Coronary artery disease: - end stage coronary disease - Continue beta juanito, plavix, ASA, isosorbide mononitrate (11) Ischemic cardiomyopathy: - ICD in place - continue amiodarone and mexiletine (12) Diabetes mellitus, type 2: Blood sugars were managed with insulin while in hospital, but patient may resume oral medication regimen upon discharge. Total Time Total Time Spent Total Time Spent (In Minutes): see attending attestation Discharge Plan Discharge Items Patient Disposition: Home - Home Health Services Reason For Visit: LOWER EXTREMITY EDEMA Discharge Diagnosis: CHF exacerbation Activity: Resume your previous activity Non-emergency contact: Primary Care Provider and Production Team Member Call non-emergency contact if: your symptoms worsen Follow-up/Referrals: Camelia Barclay, [Primary Care Provider] - 05/26/20 10:15 am (Please, follow up at Dr. Barclay's office with her associate, Liza Rodriguez, on SundayMay 26 at 10:15 am. *If you need to change this appointment, call their office at [phone].) Monique Hi PA-C [Physician Coal Mine Inspector] - 05/20/20 2:30 pm (Please, follow up at [facility] with Bethany Hi PA-C on May 20 at 2:30 pm. If you have any questions or need to change this appointment, call the office at [phone]. IN ORDER TO GET YOU IN WITH THE BINDERY MACHINE OPERATOR BRITT, I RESCHEDULED THE APPT WITH BETHANY HI FROM May TO THIS DATE, May. SORRY, IF THIS CREATES ANY CONFUSION. THE BINDERY MACHINE OPERATOR HAD NO OPENINGS UNTIL BUT THERE WAS A CANCELLATION ON May AND I WANTED YOU TO HAVE THAT APPOINTMENT.) Elian Sosa M.D. [Outside Practitioners] - 05/19/20 1:00 pm (Please, follow up at [facility] Office with Dr. Elian Sosa TOMORROW, SundayMay 19 at 1:40 pm. Please, arrive 1:00 pm so you can complete the new patient paperwork. *The office is located on the 2nd floor of the [facility] at [address] [place] [address] in [place]. If you have any questions, call the office at [phone]. ) Diet: Carb Consistent or DM2, Heart Healthy and Low Sodium (2gm) Addtl Attending Provider Instructions: You were hospitalized at [facility] for an acute exacerbation of your chronic congestive heart failure. The [facility] Heart Failure team was consulted during your stay and made recommendations regarding your diuretic therapy. Your volume status improved with IV diuretic therapy, however your heart continues to progressively weaken. Unfortunately, you are not a candidate for a heart transplant given your concurrent kidney cancer. We had a discussion about the end-stage nature of your heart disease. You voiced your preference of being able to live as along as possible because you value time with your family. However, you told us that would you not want doctors to attempt to restart your heart of if it were to stop. Your wishes are noted and will be respected. We recommend you resume taking bumex, 2mg, by mouth, once daily upon discharge. You have a follow-up appointment set up with heart failure clinic for 05/19/20. Monique Hi will contact you over the phone to set up a time. As for the red/purple lesions on you bilateral legs, your biopsy results (obtained by your doctor in [place]) returned while you were in the hospital to be positive for a vasculitis. While we want you to follow up with your intercell connector placer to determine the specific kind of vasculitis, we started you on steroids in the meantime. The discomfort in your legs improved by the time of discharge. Please continue to take prednisone 40mg, daily. Your follow up visit was arranged with Dr. Sosa in [facility] for 05/19/20 at 1:00pm. It is important to know that taking a steroid such as prednisone can increase your blood sugar levels. Given that you are a type II diabetic, please be conscientious about your intake of carbohydrates (eating a high sugar or carbohydrate diet in addition to taking the prednisone can result in too high of a blood sugar). Additionally, you were treated for cellulitis, or a skin infection, on your right lower leg while in the hospital. You completed 5 days of an antibiotic during your stay and the infection improved. Pending Studies at Discharge: No Stand-Alone Forms: My [facility] [place], Smoking Cessation Medications and DC Order Prescriptions: New prednisone 20 mg Tablet 40 mg PO DAILY 20 Days Qty: 40 RF: 0 Continued ammonium lactate 12 % lotion 1 appln TOP DAILY PRN (Reason: dry skin) Qty: 227 RF: 1 glimepiride 2 mg tablet 2 mg PO DAILY Qty: 90 RF: 1 ipratropium-albuterol 0.5 mg-3 mg(2.5 mg base)/3 mL solution for nebulization 3 ml INH Q6H PRN (Reason: wheezing or shortness of breath) Qty: 360 RF: 5 tramadol 50 mg tablet 50 mg PO Q6H PRN (Reason: pain) Qty: 30 RF: 0 clopidogrel 75 mg tablet 75 mg PO DAILY Qty: 90 RF: 3 mexiletine 150 mg capsule 150 mg PO BID Qty: 180 RF: 1 pantoprazole 40 mg tablet,delayed release (DR/EC) 40 mg PO QAM Qty: 90 RF: 0 triamcinolone acetonide 0.1 % cream 1 appln TOP TID RF: 0 isosorbide mononitrate 30 mg tablet extended release 24 hr 30 mg PO QAM Qty: 90 RF: 1 nystatin 100,000 unit/gram cream 1 appln TOP BID Qty: 15 RF: 1 Fiber Smooth Powder 1 tbs PO TID RF: 0 amiodarone 200 mg tablet 200 mg PO DAILY RF: 0 nitroglycerin 0.4 mg tablet, sublingual 0.4 mg sublingual Q5M PRN (Reason: Chest Pain) RF: 0 aspirin [Ecotrin Low Strength] 81 mg Tablet,Delayed Release (Dr/Ec) 81 mg PO DAILY RF: 0 cholecalciferol (vitamin D3) 25 mcg (1,000 unit) tablet 1,000 units PO DAILY RF: 0 fluticasone propionate 50 mcg/actuation spray,suspension 2 sprays intranasal DAILY RF: 0 coenzyme Q10 100 mg capsule 200 mg PO DAILY RF: 0 metolazone 2.5 mg tablet 2.5 mg PO DAILY PRN (Reason: weight gain to 207 lbs) Qty: 10 RF: 0 potassium chloride 20 mEq tablet extended release 20 meq PO DAILY PRN (Reason: only to be taken with metoloazone) Qty: 10 RF: 0 Bifidobacterium infantis 4 mg Capsule 4 mg PO DAILY RF: 0 bumetanide 2 mg tablet 2 mg PO QAM RF: 0 levothyroxine 50 mcg tablet 50 mcg PO QAM RF: 0 levalbuterol tartrate 45 mcg/actuation HFA aerosol inhaler 2 puff INHALATION Q6H PRN (Reason: Shortness Of Breath) RF: 0 carvedilol 12.5 mg tablet 25 mg PO BID Qty: 540 RF: 1 Discharge Orders: Discharge Order (Routine); Ordered 05/18/20 Ordered By: Skyla Reyes Admission Data Admit Date/Time: 05/13/20 00:09 Attending Provider: Yareli Leslie Admit Provider: Huseyin Angel Primary Care Provider: Camelia Barclay Other Providers: Catrachito Montoya ; Francois Hagan ; Jhonatan Escobar Other Interventions: Discharge Summary Assessment (RN) Last Done: 05/18/20 13:13 DC Date/Time DO NOT enter until pt leaves facility: 05/18/20 13:49 Supervising Physician Co-Signing Physician Notes Resident Physician Supervision Note: I independently interviewed and examined the patient and verified the couch history and physical, reviewed labs and image studies, discussed the case with the resident Dr. Reyes and agree with the findings and care plan. Resident Activity Tracking Resident Involvement: Resident Care Provided Care Provided: Adult Hospital Medicine
== END 2020-05-18 13:49 | disposition home health service (06) | DRG 291 ==
LOC: ED 20:47 → 2N 05-13 00:09 → SUATTDRO 05-13 00:09 → 2N 05-13 01:44